=== PATIENT | female | born 1945 | race Caucasian/White ===

== ENCOUNTER → 2019-09-19 10:38 | Outpatient (CLI) | payer MEDICARE, OTHER, SELFPAY ==
[2019-09-17 14:09] VITALS: BMI 22.1
--- NOTE | 2019-09-19 10:55 | BI_ITS ---
MAMMOGRAPHY - BILATERAL SCREENING REASON FOR EXAM: Female, 74 years old. Routine annual screening examination. PERTINENT HISTORY: Non-contributory. Remote left excisional breast biopsy. TECHNIQUE: Digital bilateral breast kelvin (3D mammographic acquisition) in the CC and MLO projections. 2-D mediolateral oblique (MLO) and craniocaudad (CC) views of both breasts were obtained. CAD: Full Field Digital Mammography with Computer Added Detection was performed. COMPARISON: Comparison is made with prior examination of September 20, 2016. FINDINGS: Breast Composition: The breasts are extremely dense, which lowers the sensitivity of mammography. There are no dominant masses or suspicious calcifications. No other significant abnormalities are identified. There has been no significant change since the prior study. BI/SCREEN MAMM (CAD) W/KELVIN BILAT IMPRESSION: Stable bilateral screening mammogram. Yearly follow-up mammogram recommended. (A) ASSESSMENT CATEGORY: BIRADS Category 1: Negative. A letter regarding these results will be sent to the patient by the facility within 30 days. Approximately 10% of breast cancers are not detected by mammography. A normal mammogram should not delay biopsy of a clinically suspicious abnormality. [id number] Electronically Signed: Colt Martinez, at 12:21 EDT , Service support ,
== END ==
PROVIDERS: PCP Nurse Practitioner Family; Referring Provider Internal Medicine Hematology & Oncology; Visit Provider Internal Medicine Hematology & Oncology
DX: Z12.31 Encounter for screening mammogram for malignant neoplasm of breast (principal)
CPT/HCPCS: 77063; 77067

== ENCOUNTER → 2019-12-11 12:30 | Outpatient (CLI) | payer MEDICARE, OTHER, SELFPAY ==
[2019-09-17 14:09] VITALS: BMI 22.1
[2019-12-11 12:06] VITALS: BMI 22.1
--- NOTE | 2019-12-11 12:30 | CT_ITS ---
STUDY: LOW DOSE CT LUNG CANCER SCREENING REASON FOR EXAM: Female, 74 years old. 1 PPD X 35 YEARS RADIATION DOSAGE (If Supplied By Facility): CTDIvol = ( 1.70 ) mGy, DLP = ( 54.67 ) mGycm TECHNIQUE: No contrast was administered. Low dose technique was utilized (average mAS-38 and kVp 120). 1.25 mm axial source images with a slice interval of 1.25-mm were reconstructed in lung windows. 2.5 mm axial source images with a slice interval of 2.5-mm were reconstructed in lung windows. 5.0 mm axial source images with a slice interval of 5.0-mm were reconstructed in soft tissue windows. Nodule measured using lung windows on PACS and/or independent workstation with automated measurement of minimum and maximum diameter. Nodule measurement reported as average diameter rounded to the nearest whole number. Growth is defined as an increase ins size of greater than 1.5 mm. COMPARISON: None. NODULES: No suspicious nodules are seen. Emphysema: Emphysematous changes worse in the upper lobes with the bolus formation as well as scarring in the lung apices. Endobronchial lesion: Aorta: Atherosclerotic calcifications. Coronary arteries: Coronary artery calcification. Heart: Unremarkable. Pulmonary artery: Unremarkable. Mediastinal nodes: Small benign-appearing mediastinal lymph nodes. Other chest and abdominal findings: Moderate sized hiatal hernia. CT/Low Dose CT Lung Screening IMPRESSION: Lung-RADS category 2 - Continue annual screening with LDCT in 12 months. IMPORTANT NOTES FOR USE: ACR Lung-RADS Version 1.0 Assessment Categories Release Date: October 22, 2013 Category: Coded 0-4 bases on nodule(s) with highest degree of suspicion. Negative screen is defined as categories 1 and 2; a positive screen is defined as categories 3 and 4. Category 3 and 4A nodules that are unchanged on interval CT should be coded as category 2, and individuals returned to screening in 12 months. Category 4X: Category 3 or 4 nodules with additional imaging findings that increase the suspicion of lung cancer, such as spiculation, GGN that doubles in size in 1 year, enlarged lymph notes, etc. Category Modifiers: S (significant finding unrelated to lung cancer) and C (prior history of treated lung cancer) may be added to the 0-4 Lung-RADS Electronically Signed: Colt Martinez, at 13:25 EDT , Service support ,
== END ==
PROVIDERS: PCP Nurse Practitioner Family; Referring Provider Nurse Practitioner Family; Visit Provider Nurse Practitioner Family
DX: F17.210 Nicotine dependence, cigarettes, uncomplicated (principal); Z12.2 Encounter for screening for malignant neoplasm of respiratory organs
CPT/HCPCS: G0297

== ENCOUNTER → 2021-01-13 13:16 | Outpatient (CLI) | payer MEDICARE, OTHER, SELFPAY ==
[2019-12-11 12:06] VITALS: BMI 22.1
[2021-01-13 12:45] VITALS: BMI 21.7
--- NOTE | 2021-01-13 13:48 | CT_ITS ---
STUDY: LOW DOSE CT LUNG CANCER SCREENING REASON FOR EXAM: Female, 75 years old. Lung cancer screening -- and amp;gt; 30 pack year history; current smoker; asymptomatic RADIATION DOSAGE (If Supplied By Facility): CTDIvol = ( 3.02 ) mGy, DLP = ( 98.17 ) mGycm TECHNIQUE: No contrast was administered. Low dose technique was utilized (average mAS-38 and kVp 120). 1.25 mm axial source images with a slice interval of 1.25-mm were reconstructed in lung windows. 2.5 mm axial source images with a slice interval of 2.5-mm were reconstructed in lung windows. 5.0 mm axial source images with a slice interval of 5.0-mm were reconstructed in soft tissue windows. Nodule measured using lung windows on PACS and/or independent workstation with automated measurement of minimum and maximum diameter. Nodule measurement reported as average diameter rounded to the nearest whole number. Growth is defined as an increase ins size of greater than 1.5 mm. COMPARISON: Comparison is made with prior study dated 12/11/2019. NODULES: No suspicious nodules are seen. Stable mild scarring along the medial aspect of the right middle lobe. Emphysema: Stable emphysematous changes worse in the upper lobes. Stable scarring in the upper lobes as well as centrilobular emphysematous changes bilaterally. Endobronchial lesion: None Aorta: Atherosclerotic calcification of the aortic arch. Coronary arteries: Coronary artery calcification. Mediastinal nodes: Small benign appearing mediastinal lymph nodes. Moderate-sized hiatal hernia. CT/Low Dose CT Lung Screening IMPRESSION: Lung-RADS category 2 - Continue annual screening with LDCT in 12 months. IMPORTANT NOTES FOR USE: ACR Lung-RADS Version 1.1 Assessment Categories Release Date: 2018 Category: Coded 0-4 bases on nodule(s) with highest degree of suspicion. Negative screen is defined as categories 1 and 2; a positive screen is defined as categories 3 and 4. Category 3 and 4A nodules that are unchanged on interval CT should be coded as category 2, and individuals returned to screening in 12 months. Category 4X: Category 3 or 4 nodules with additional imaging findings that increase the suspicion of lung cancer, such as spiculation, GGN that doubles in size in 1 year, enlarged lymph notes, etc. Category Modifiers: S (significant finding unrelated to lung cancer) Electronically Signed: Colt Martinez MD at 14:19 EDT , Service support ,
== END ==
PROVIDERS: PCP Nurse Practitioner Family; Referring Provider Nurse Practitioner Family; Visit Provider Nurse Practitioner Family
DX: Z12.2 Encounter for screening for malignant neoplasm of respiratory organs (principal); Z87.891 Personal history of nicotine dependence
CPT/HCPCS: 71271

== ENCOUNTER 2023-08-05 17:48 | Inpatient (IN) | payer MEDICARE, OTHER, SELFPAY ==
[2023-08-05] VITALS (10 sets, daily range): BP systolic 97–145; BP diastolic 45–88; PULSE 74–125; RESP 14–34; TEMP 36.7–39; O2SAT 94–97; BMI 18.7
--- NOTE | 2023-08-05 18:02 | EDS_ITS ---
HPI History of Present Illness Chief Complaint: Hyperglycemia Informant: patient Narrative Narrative: Patient present secondary to elevated blood sugar. She states she was diagnosed with COVID a couple weeks ago but thought she was better. She is still not felt well and has not been recently taking her diabetes medications. She states she is eating some and trying to drink a lot. Her blood sugars were elevated today so EMS was called. states that she seemed to be appropriate earlier in the day but was more confused this evening. Blood sugars were reportedly reading greater than 600. On arrival to the emergency room patient has a temperature of 102.2. She was unaware that she had a fever. She denies cough or congestion. She denies urinary symptoms other than urinary frequency with her hyperglycemia. [facility] Medical History Bowel obstruction COPD (chronic obstructive pulmonary disease) Diabetes Encounter for screening for malignant neoplasm of lung in current smoker with 30 pack year history or greater Hyperlipidemia Tobacco use disorder, continuous Vitamin D deficiency Home Medications glimepiride 2 mg tablet 2 mg PO DAILY 09/13/19 [History Last Taken Unknown] simvastatin 40 mg tablet 40 mg PO DAILY 09/13/19 [History Last Taken Unknown] vit C 250 mg-vit E 90 mg-zinc 40 mg-copper 1 [id number] capsule (PreserVision AREDS-2) 1 tab PO BID 01/13/21 [History Last Taken Unknown] cholecalciferol (vitamin D3) 1,250 mcg (50,000 unit) capsule 1,250 mcg PO .MONTHLY 08/05/23 [History Last Taken Unknown] losartan 25 mg tablet 25 mg PO DAILY 08/05/23 [History Last Taken Unknown] metformin 750 mg tablet,extended release 24 hr 750 mg PO DAILY 08/05/23 [History Last Taken Unknown] Allergy/AdvReac Type Severity Reaction Status Date / Time No Known Allergies Allergy Verified 08/05/23 17:58 Family History Father CAD (coronary artery disease) Myocardial infarction Osteoarthritis Brother Multiple myeloma older younger brother Brain aneurysm younger brother Surgical History History of hysterectomy History of intestinal surgery History of removal of ovarian cyst Social History Smoking Status: Current every day smoker tobacco type: cigarettes Tobacco: How many years used: 25 Electronic Cigarette Use: not used second hand exposure: Yes quit status: considering quitting counseling given: provider counseling ROS ROS ED Constitutional Constitutional ED: Reports fever(s) Eyes Eyes: Denies change in vision ENT ENT ED: Denies rhinorrhea or sore throat Cardiovascular Cardiovascular: Denies chest pain or palpitations Respiratory/Chest Respiratory/Chest: Denies cough or dyspnea Gastrointestinal Gastrointestinal: Denies abdominal pain, diarrhea or vomiting Genitourinary Genitourinary ED: Reports urinary frequency Musculoskeletal Musculoskeletal: Denies arthralgias Neurologic Neurologic: Reports weakness Psychiatric Psychiatric: Denies anxiety or depression Allergic/Immunologic Allergic/Immunologic ED: Denies mouth swelling or tongue swelling EXAM Physical Exam Const Vital Signs: 08/05/23 17:50 08/05/23 17:54 08/05/23 17:56 Temperature 102.2 F H 102.2 F H Temperature Source Oral Oral Pulse Rate 125 H 124 H Respiratory Rate 34 H 24 H Respiratory Effort Normal Non-Labored Respiratory Pattern Normal Blood Pressure 136/60 H 145/62 H Blood Pressure Mean 85 89 Pulse Ox 94 94 Oxygen Delivery Method Room Air Room Air Oxygen Flow Rate (L/min) Fraction of Inspired Oxygen (FIO2) 08/05/23 18:43 08/05/23 18:59 08/05/23 19:00 Temperature 102 F H 102 F H Temperature Source Temporal Temporal Pulse Rate 117 H 99 101 H Respiratory Rate 22 H 21 H 23 H Respiratory Effort Respiratory Pattern Blood Pressure 114/47 L 108/45 L 113/54 L Blood Pressure Mean 69 66 73 Pulse Ox 97 95 96 Oxygen Delivery Method Nasal Cannula Nasal Cannula Room Air Oxygen Flow Rate (L/min) 1.5 Fraction of Inspired Oxygen (FIO2) 1.5 Positive well nourished and well developed General Appearance ED: well developed HEENT Reports dry mucous membranes Mouth ED: Yes dry mucous membranes Mouth: dry mucous membranes Eyes EOMs intact bilaterally Chest Wall inspection of chest normal and palpation of chest normal Resp Resp Narrative: Tachypnea. Lung sounds are clear. Cardio Rate: tachycardic GI GI Narrative: Abdomen soft and nontender. Hypoactive bowel sounds. Narrative: Perineum with inflammation and inflamed skin. This is consistent with yeast infection. I do not see any evidence of abscess. Extremity normal to inspection Neuro Neuro Narrative: Patient alert answers questions appropriately. MDM MDM MDM Narrative Medical decision making narrative: Patient placed on bus driver/monitor. IV line initiated. IV fluids given along with Tylenol for fever. Labwork obtained to evaluate for leukocytosis, anemia, and electrolyte derangement. Urinalysis obtained to evaluate for infection/hematuria. Swab for COVID, influenza, and RSV obtained. Chest x-ray obtained to evaluate for acute lung pathology, cardiac size, or mediastinal abnormality. Blood and urine cultures obtained. History & Record Review Discussion w/independent historian: Patient and Family Lab Data Attestation: I reviewed the patient's lab results. Labs: Laboratory Results - last 24 hr 08/05/23 08/05/23 08/05/23 17:53 19:29 19:30 WBC 21.3 H RBC 4.38 Hgb 12.9 Hct 40.2 MCV 91.8 MCH 29.5 MCHC 32.1 RDW Std Deviation 43.9 RDW Coeff of Kuldip 13.1 Plt Count 402 MPV 10.0 Immature Gran % (Auto) 0.800 Neut % (Auto) 93.6 H Lymph % (Auto) 3.1 L [place] % (Auto) 2.3 Eos % (Auto) 0.0 Baso % (Auto) 0.2 Absolute Neuts (auto) 20.0 H Absolute Lymphs (auto) 0.66 L Nucleated RBC % 0 Sodium 129 L Potassium 4.6 Chloride 94 L Carbon Dioxide 23.0 Anion Gap 12 BUN 25 H Creatinine 1.56 H Estim Creat Clear Calc 22.47 Est GFR (MDRD) Af Amer 42 L Est GFR (MDRD) Non-Af 34 L BUN/Creatinine Ratio 16.0 Glucose 956 H* Calcium 9.9 Total Bilirubin 0.60 Direct Bilirubin 0.23 AST 11 L ALT 23 Alkaline Phosphatase 105 Troponin I High Sens 153 H* Total Protein 8.2 Albumin 3.2 Globulin 5.0 H Urine Color Yellow Urine Clarity Clear Urine pH 6.5 Ur Specific [place] 1.010 Urine Protein 30 H Urine Glucose (UA) 1000 H Urine Ketones 5 H Urine Occult Blood 150 H Urine Nitrite Positive H Urine Bilirubin Negative Urine Urobilinogen Normal Ur Leukocyte Esterase 25 H Urine RBC 0-5 SEEN Urine WBC 0 SEEN Ur Squamous Epith Cells 0 SEEN Urine Bacteria 1+ Urine Mucus 0 SEEN Acetone Level MODERATE H ABG Data ABG results: ABG 08/05/23 19:11 Specimen Type DEDRICK Sample Site Not entered O2 % 2.0 VBG pH 7.39 VBG pO2 56 H VBG HCO3 23 VBG Total CO2 24 VBG O2 Sat (Calc) 88 H VBG Base Excess -2 L POC Mix VBG pCO2 Pt Tmp 38.1 L O2 Delivery Device Cannula Radiography Chest X-Ray - ED: 1 View, Read by ED Physician, Chronic Changes and No Infiltrates Diagnostic Testing: Clinical Impression(s) from Imaging Studies Chest X-Ray 08/05/23 18:24 IMPRESSION: There are findings consistent with COPD. There is no evidence of acute chest disease. Electronically Signed: Cb Munoz MD at 18:48 EST , EKG Initial EKG: Attestation: I personally reviewed and interpreted this EKG as follows: Interpretation: Sinus Tachycardia (Sinus tach at 114. Nonspecific ST changes.) Treatment and Re-Evaluation :: CBC was a white count of 21.3 with 93.6% neutrophils. Chemistry studies significant for glucose of 956 with a corresponding sodium of 129. Potassium is normal at 4.6. BUN is 25 and creatinine is 1.56. I do not have prior labs available for comparison. Anion gap is normal. Troponin is elevated at 153. LFTs are unremarkable. Venous blood gas reveals a pH 7.39. Serum acetone is measured at moderate. Swab for COVID, influenza, and RSV is negative. Chest x- ray per my interpretation feels chronic changes with no focal infiltrate. Radiology interpretation is reviewed and agrees. Urinalysis does reveal evidence of infection with positive nitrites and 1+ bacteria. Cultures have been ordered. Patient is given a dose of IV Rocephin. Nystatin powder used in the perineum for her erythema and inflammation. I will speak with hospitalist regarding admission. I anticipate insulin drip, but will speak with hospitalist first given the normal pH and anion gap. Discharge Plan Triage Chief Complaint: Hyperglycemia ED Provider: Virginia Gu Dx/Rx/DC Orders Clinical Impression: UTI (urinary tract infection), Hyperglycemia, Elevated troponin Prescriptions: No Action PreserVision AREDS-2 250-90-40-1 mg capsule 1 tab PO BID simvastatin 40 MG tablet 40 mg PO DAILY glimepiride 2 MG tablet 2 mg PO DAILY cholecalciferol (vitamin D3) 1,250 mcg (50,000 unit) capsule 1,250 mcg PO .MONTHLY Patient Comments: TAKE 1 CAPSULE BY MOUTH EVERY MONTH FOR 90 DAYS losartan 25 mg tablet 25 mg PO DAILY Patient Comments: TAKE 1 TABLET BY MOUTH EVERY DAY metformin 750 mg tablet extended release 24 hr 750 mg PO DAILY Patient Comments: TAKE 1 TABLET BY MOUTH EVERY DAY Primary Care Provider: Mauro Guallpa NP Referrals: Mauro Guallpa NP, [employer] [Primary Care Provider] - Disposition Disposition: Acute Care Hospital [facility]
--- NOTE | 2023-08-05 18:12 | ED.RN ---
NO OLD EKG
[2023-08-05 18:14] LABS: Absolute Lymphocyte Count 0.66 X10^3/uL (0.83-4.51); Basophil# 0.05 X10^3/uL; Basophil% 0.2 % (0-1); Hematocrit 40.2 % (37-47); Hemoglobin 12.9 g/dL (12.0-15.0); Lymphocyte # 0.66 X10^3/ul (0.83-4.51); Lymphocyte % 3.1 % (19-41); Mean Corp Hgb Conc 32.1 g/dL (32-36); Mean Corpuscular Hgb 29.5 pg (27.0-32.0); Mean Corpuscular Volume 91.8 fL (81-99); Monocyte# 0.48 X10^3/uL; Monocyte% 2.3 % (0-10); NRBC Flagged by Analyzer 0 % (0-5); Neutrophil # 19.96 X10^3/uL (2.7-7.7); Neutrophil % 93.6 % (47-70); Platelet Count 402 K/mm3 (150-450); RBC Distribution Width CV 13.1 % (11.6-14.6); RBC Distribution Width SD 43.9 fl (35.1-43.9); Red Blood Count 4.38 M/mm3 (4.2-5.4); White Blood Count 21.3 K/mm3 (4.4-11.0)
[2023-08-05] MEDS: 0.9% Normal Saline (1000mL) 1,000 ML 1000 ML IV (18:16)
--- OUTSIDE RECORDS SUMMARY | 2023-08-05 18:23 | XMS RPT_ITS | CCD ---
Author Name Unknown Address [address] [place] [address] Organization [facility] Care Team Providers Care Admitting Manager Name Role Phone ADELINA JACKMAN APRN, CNP Primary Care Phys ician ADELINA JACKMAN APRN, CNP Attending U davidailADELINA Mendoza APRN, CNP Primary Care U navailable ADELINA JACKMAN APRN, CNP Attending U navailvíctor Lloyd CNP, ADELINA Reyes Primary Care U navailable Medications Current Medications Medication Drug Class(es) Dates Sig (Normalized) Sig (Original) [id number] 200 actuat albuterol 0.09 mg/actuat metered dose inhaler (5 sources) beta2-Adrenergic Agonist Start: 11-13-2021 End: 05-10-2023 take 1 puff(s) by inhalation every four hours ProAir HFA MDI (90 mcg/inh) inhalation aerosol 1 puff(s), Inhalation, q4h, # 1 EA, 5 Refill(s), Pharmacy: [id number], Chronic obstructive pulmonary disease (COPD), 156, cm, 11/11/22 10:37:00 EDT, Height, kg, 11/11/22 10:37:00 EDT, Dosing Weight Start Date: 11/11/22 Stop Date: 05/10/23 Status: Ordered Problems Active Problems Problem Classification Problem Date Documented Date Episodic/Chronic Cardiac dysrhythmias (5 sources) Premature atrial contraction 03-01-2019 Chronic Chronic obstructive pulmonary disease and bronchiectasis (7 sources) Chronic obstructive lung disease; Translations: [Chronic obstructive pulmonary disease, unspecified] Onset: 05-05-2023 03-02-2019 Chronic Complications of surgical procedures or medical care (5 sources) 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 Chronic Diabetes mellitus without complication (7 sources) Type 2 diabetes mellitus; Translations: [Type 2 diabetes mellitus without complications] Onset: 11-04-2022 12-07-2019 Chronic Diseases of white blood cells (7 sources) Leukocytosis; Translations: [Elevated white blood cell count, unspecified] Onset: 11-04-2022 03-01-2019 Chronic Disorders of lipid metabolism (7 sources) Hyperlipidemia; Translations: [Hyperlipidemia, unspecified] Onset: 11-04-2022 03-02-2019 Chronic Essential hypertension (7 sources) Hypertensive disorder; Translations: [Essential (primary) hypertension] Onset: 11-04-2022 08-31-2019 Chronic Heart valve disorders (5 sources) Pansystolic murmur 02-09-2021 Episodic Nutritional deficiencies (7 sources) Vitamin D deficiency; Translations: [Vitamin D deficiency, unspecified] Onset: 11-04-2022 03-02-2019 Chronic Osteoarthritis (5 sources) Osteoarthritis of multiple joints 03-02-2019 Chronic Osteoporosis (5 sources) Osteoporosis 03-01-2019 Chronic Other diseases of kidney and ureters (5 sources) Renal impairment 03-28-2020 Episodic Residual codes; unclassified (5 sources) Postmenopausal state 01-31-2020 Episodic Screening and history of mental health and substance abuse codes (5 sources) Tobacco use and exposure - finding 03-01-2019 Chronic Unclassified (20 sources) Patient encounter status 02-09-2021 Unclassified (3 sources) Vaccination needed 03-19-2022 Past or Other Problems Problem Classification Problem Date Documented Da te Episodic/Chronic Other diseases of kidney and ureters (2 sources) Disorder of kidney and ureter, unspecified; Translations: [Disorder of kidney and ureter, unspecified] Onset: 11-04-2022 Episodic Results Test Name Value Interpretation Reference Range Facil ity Encounters Encounter Date Encounter Type Care Provider Facility Start: 05-05-2023 End: 05-10-2023 ambulatory ADELINA Lloyd CNP Facility:B Start: 05-05-2023 End: 05-09-2023 Outreach Lab ADELINA AJ APRN - NETWORKS COMPUTER CONSULTANT [facility] Start: 11-04-2022 End: 11-09-2022 ambulatory ADELINA WAGNERPKINS EXPORT ADMINISTRATOR - NETWORKS COMPUTER CONSULTANT Facility:B Start: 11-04-2022 End: 11-08-2022 Outreach Lab ADELINA AJ EXPORT ADMINISTRATOR - NETWORKS COMPUTER CONSULTANT [facility] Start: 05-06-2022 End: 05-10-2022 Outreach Lab ADELINA AJ EXPORT ADMINISTRATOR - NETWORKS COMPUTER CONSULTANT [facility] Start: 11-05-2021 End: 11-09-2021 Outreach Lab ADELINA WAGNERPKINS EXPORT ADMINISTRATOR - NETWORKS COMPUTER CONSULTANT [facility] Start: 04-24-2021 End: 04-28-2021 Outreach Lab ADELINA WAGNERPKINS EXPORT ADMINISTRATOR - NETWORKS COMPUTER CONSULTANT [facility] Procedures Date Procedure Procedure Detail Performing Clinician Start: 06-27-1997 Surgery (qualifier value) ADELINA WAGNERPKINS EXPORT ADMINISTRATOR - NETWORKS COMPUTER CONSULTANT Immunizations Immunization Date Immunization Notes Care Provider Bandar edwards 03-19-2022 influenza, high dose seasonal, preservative-free ADELINA WAGNERPKINS EXPORT ADMINISTRATOR - NETWORKS COMPUTER CONSULTANT [facility] Payers Date Payer Category Payer Medicare [id number] 2022 Unknown [id number] 1945 Unknown [id number] 1945 Unknown [id number] Social History Date Type Detail Facility Start: 02-09-2021 Heavy tobacco smoker (finding) [facility] Sex Assigned At Female [facility] Evaluation + Plan note Note Date & Type Note Facility Evaluation + Plan note Future Appointments Appointment Date:05/15/2021 02:00:00 PM Scheduled Provider:ADELINA AJ APRN, CNP Location:[facility] Appointment Type:PC OV Follow Up [facility] Evaluation + Plan note LaboratoryRadiology Note Date & Type Note Facility Evaluation + Plan note Future Appointments Appointment Date:05/11/2022 10:20:00 AM Scheduled Provider:ADELINA AJ APRN - PATTI Location:[facility] Appointment Type:PC OV Future Scheduled TestsMicroalbumin Level Urine 05/16/22MA Mammo Screening Bilateral w/ Adonis 11/13/21BD Bone Density DEXA Axial Skeleton 11/13/21 [facility] Evaluation + Plan note LaboratoryRadiology Note Date & Type Note Facility Evaluation + Plan note Future Appointments Appointment Date:11/11/2022 10:40:00 AM Scheduled Provider:ADELINA AJ APRN, CNP Location:[facility] Appointment Type:PC OV Follow Up Future Scheduled TestsMicroalbumin Level Urine 515/23Microalbumin Level Urine 05/16/22MA Mammo Screening Bilateral w/ Adonis 11/13/21BD Bone Density DEXA Axial Skeleton 11/13/21 [facility] Evaluation + Plan note Laboratory Note Date & Type Note Facility Evaluation + Plan note Future Appointments Appointment Date:05/12/2023 10:40:00 AM Scheduled Provider:ADELINA AJ APRN, CNP Location:[facility] Appointment Type:PC OV Follow Up Future Scheduled TestsMicroalbumin Level Urine 5/15/23Microalbumin Level Urine 05/16/22 [facility] Hospital course Narrative Note Date & Type Note Facility Hospital course Narrative No data available for this section [facility] Hospital Discharge instructions Note Date & Type Note Facility Hospital Discharge instructions No data available for this section [facility] Progress note Note Date & Type Note Facility Progress note No data available for this section [facility] Summary Purpose Family History No Family History Records Found Advance Directives No Advanced Directives Records Found Additional Source Comments Care Team (unrecognized sect ion and content) Personnel Name: ADELINA AJ EXPORT ADMINISTRATOR - NETWORKS COMPUTER CONSULTANT Address: [address] [place] [address]- Care Team Personnel Name: ADELINA AJ EXPORT ADMINISTRATOR - NETWORKS COMPUTER CONSULTANT Position: P4 Advanced Typewriter Mechanic Member Role: Primary Care Physician Address: Address: [address] [place] [address] Care Team Related Persons Name: KIM WOLF Address: [address] [place], [place] [phone] Care Team Personnel Name: ADELINA AJ EXPORT ADMINISTRATOR - NETWORKS COMPUTER CONSULTANT Position: P4 Advanced Typewriter Mechanic Member Role: Primary Care Physician Address: Address: [address] [place] [address] Care Team Related Persons Name: KIM WOLF Address: [address] [place], [place] [phone] [place] Care Team (unrecognized sect ion and content) Care Team Personnel Name: ADELINA AJ EXPORT ADMINISTRATOR - NETWORKS COMPUTER CONSULTANT Position: P4 Advanced Practice Nurse Member Role: Primary Care Physician Address: Address: [address] [place] [address] Care Team Related Persons Name: KIM WOLF Address: Home [address] [place], [place] [phone] INFORMATION SOURCE (unrecogn ized section and content) FOR RECORDS PERTAINING TO PATIENTS WHO ARE OR HAVE BEEN ENROLLED IN A CHEMICAL DEPENDENCY/SUBSTANCEABUSE PROGRAM, SOME INFORMATION MAY BE OMITTED. This clinical summary was aggregated from multiple sources. Caution should be exercised in using it in the provision of clinical care. This summary normalizes information from multiple sources, and as a consequence, information in this document may materially change the coding, format and clinical context of patient data. In addition, data may be omitted in some cases. CLINICAL DECISIONS SHOULD BE BASED ON THE PRIMARY CLINICAL RECORDS. [facility]. provides no warranty or guarantee of the accuracy or completeness of information in this document.
--- NOTE | 2023-08-05 18:24 | RAD_ITS ---
STUDY: X-RAY CHEST REASON FOR EXAM: Female, 78 years old. fever TECHNIQUE: Single AP portable view of the chest. COMPARISON: None. FINDINGS: The lungs are hyperexpanded. There are coarsened interstitial markings suggestive of mild chronic fibrosis. No gross focal infiltrates. No gross effusions. Normal size heart. Normal mediastinum and celina. Normal visualized pulmonary arteries. Normal visualized aortic arch and descending thoracic aorta. Normal visualized thoracic spine. Normal visualized ribs, clavicles, and shoulders. There is no demonstrated abnormality of the visualized soft tissue structures of the upper abdomen. RAD/Chest 1 View (Portable) IMPRESSION: There are findings consistent with COPD. There is no evidence of acute chest disease. Electronically Signed: Cb Munoz MD at 18:48 EST ,
[2023-08-05 18:40] LABS: AST(SGOT) 11 U/L (15-37); Alanine Aminotransfer ALT/SGPT 23 U/L (13-56); Albumin, Serum 3.2 g/dL (3.2-5.0); Alkaline Phosphatase 105 U/L (45-117); Anion Gap 12 (5-15); BUN 25 mg/dL (7-18); Bilirubin, Direct 0.23 mg/dL (0.00-0.30); Calcium,Total 9.9 mg/dL (8.5-10.1); Chloride 94 mmol/L (98-107); Creatinine, Serum 1.56 mg/dL (0.55-1.02); EST Glomerular Filtration Rate 34 mL/min (>60); Est Glom Filt Rate - Afr Amer 42 mL/min (>60); Estimated Creatinine Clearance 22.47 ml/min; Glucose 956 mg/dL (74-106); Potassium 4.6 mmol/L (3.5-5.1); Protein, Total 8.2 g/dL (6.4-8.2); Sodium Level 129 mmol/L (136-145); Troponin-I HS 153 pg/mL (3.0-54.0)
[2023-08-05] MEDS: Acetaminophen 325 MG Tablet 650 MG PO (18:42)
--- NOTE | 2023-08-05 18:56 | ED.RN ---
LESLEY PLACED D/T REDNESS AND BREAKDOWN OF PERINEUM OF PT. PT WAS CLEANED UP WITH WIPES AND DEPENDS PLACED ALSO AND BED CHANGED AND PT REPOSITIONED. PT IS ELVER RESPONSIVE WITH FAMILY A THE BEDSIDE. NO OPEN WOUNDS WERE NOTED. PT ALSO GIVEN ICE CHIPS D/T INCREASED THIRST.
[2023-08-05 19:14] LABS: Blood Gas Specimen Type VEN; O2 Delivery Device Cannula; SITE Not entered; VBG BASE EXCESS -2 mmol/L (-1.0-3.5); VBG Bicarbonate 23 mmol/L (22-26); VBG PO2 56 mmHg (25-40); VBG SO2 88 % (50-70); VBG TCO2 24 mmol/L (23-33); VBG pCO2 38.1 mmHg (41-51); VBG pH 7.39 (7.32-7.42)
[2023-08-05 19:33] LABS: Mucous, Urine 0 SEEN /hpf (<or=2+); Squamous Epithelial Cells - UA 0 SEEN /hpf (5-10); White Blood Cells 0 SEEN /hpf (0-5)
[2023-08-05 19:34] LABS: Color, Urine Yellow (Yellow); Glucose, Dipstick 1000 mg/dl (Normal); Ketone-Dipstick 5 mg/dl (Negative); Leukocyte Esterase-Dipstick 25 /ul (Negative); Nitrite-Dipstick Positive (Negative); Occult Blood-Urine 150 /ul (Negative); Protein-Dipstick 30 mg/dl (Negative); Urine Bilirubin Dipstick Negative (Negative); Urine Clarity Clear (Clear); Urine Urobilinogen Normal (Normal); Urine pH 6.5 (5.0 - 8.0)
[2023-08-05 19:39] LABS: Bacteria 1+ /hpf (None Seen); Red Blood Cells-Urine 0-5 SEEN /hpf (0-5)
[2023-08-05] MEDS: 0.9% Normal Saline (1000mL) 1,000 ML 200 ML IV (20:16)
[2023-08-05 20:30] LABS: Bedside Glucose > 500 mg/dL (74-106)
[2023-08-05] MEDS: 0.9% Normal Saline (1000mL) 1,000 ML 999 ML IV (20:31)
--- NOTE | 2023-08-05 20:34 | HP.PCM.HOS_ITS ---
HPI - General General Date of Admission: 08/05/23 Date of Service: 08/05/23 Chief Complaint: Generalized weakness tiredness. Fever and hyperglycemia HPI Narrative VIKY WOLF, is a 78 F came to ED as she was not feeling well with generalized weakness, hyperglycemia has blood sugar was reading high more than 600 and she was also confused in the evening as per the . She was brought to ED by EMS for fever, temperature 102.2 ?F. Patient denies subjective fever chills/she was unaware of that. Denies burning micturition but has increased urine frequency. Patient states she is very tired and fatigued because her daughter has Down syndrome and is in extended-care facility and she is very sick. 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 She was tearful while telling her story. In ED, she was found tachycardic heart rate 1 2500, tachypneic 34/min. No hypoxia. She denies cough cold, increased shortness of breath more than her normal as she has COPD and chronic smoker. She also had COVID couple weeks ago and she recovered. [facility] Medical History Bowel obstruction COPD (chronic obstructive pulmonary disease) Diabetes Encounter for screening for malignant neoplasm of lung in current smoker with 30 pack year history or greater Hyperlipidemia Tobacco use disorder, continuous Vitamin D deficiency Home Medications glimepiride 2 mg tablet 2 mg PO DAILY 09/13/19 [History Last Taken Unknown] simvastatin 40 mg tablet 40 mg PO DAILY 09/13/19 [History Last Taken Unknown] vit C 250 mg-vit E 90 mg-zinc 40 mg-copper 1 [id number]-[id number] capsule (PreserVision AREDS-2) 1 tab PO BID 01/13/21 [History Last Taken Unknown] cholecalciferol (vitamin D3) 1,250 mcg (50,000 unit) capsule 1,250 mcg PO .MONTHLY 08/05/23 [History Last Taken Unknown] losartan 25 mg tablet 25 mg PO DAILY 08/05/23 [History Last Taken Unknown] metformin 750 mg tablet,extended release 24 hr 750 mg PO DAILY 08/05/23 [History Last Taken Unknown] Allergy/AdvReac Type Severity Reaction Status Date / Time No Known Allergies Allergy Verified 02/09/24 17:58 Family History Father CAD (coronary artery disease) Myocardial infarction Osteoarthritis Brother Multiple myeloma older younger brother Brain aneurysm younger brother Surgical History History of hysterectomy History of intestinal surgery History of removal of ovarian cyst Social History Smoking Status: Current every day smoker tobacco type: cigarettes Tobacco: How many years used: 25 Electronic Cigarette Use: not used second hand exposure: Yes quit status: considering quitting counseling given: provider counseling ROS ROS Narrative Constitutional: Reports severe fatigue and weakness. Fever. HEENT: Reports systems reviewed and no addt'l complaints, except as documented Respiratory/Chest: No acute shortness of breath or respiratory distress or wheezing or cough or URI symptoms. CVS: About age of 11, she had rheumatic fever and she had murmur but states it improved over the years. Denies chest pain pressure or tightness. Gastrointestinal: No nausea. Denies coffee ground emesis, hematemesis or vomiting Genitourinary: Denies burning urination but has increased frequency and some yeast infection Musculoskeletal: Denies acute joint pain or limited range of motion. No acute injury Neurologic: Denies seizure-like symptoms. skin: No ulcer. No rash Endocrinology: Reports systems reviewed and no addt'l complaints, except as documented Hematologic/Lymphatic: Reports systems reviewed and no addt'l complaints, except as documented Rest 14 ROS are negative except as mentioned in HPI Vital Signs Vital Signs Vital Signs: 08/05/23 17:50 08/05/23 17:54 08/05/23 17:56 Temperature 102.2 F H 102.2 F H Temperature Source Oral Oral Pulse Rate 125 H 124 H Respiratory Rate 34 H 24 H Respiratory Effort Normal Non-Labored Respiratory Pattern Normal Blood Pressure 136/60 H 145/62 H Blood Pressure Mean 85 89 Pulse Ox 94 94 Oxygen Delivery Method Room Air Room Air Oxygen Flow Rate (L/min) Fraction of Inspired Oxygen (FIO2) 08/05/23 18:43 08/05/23 18:59 08/05/23 19:00 Temperature 102 F H 102 F H Temperature Source Temporal Temporal Pulse Rate 117 H 99 101 H Respiratory Rate 22 H 21 H 23 H Respiratory Effort Respiratory Pattern Blood Pressure 114/47 L 108/45 L 113/54 L Blood Pressure Mean 69 66 73 Pulse Ox 97 95 96 Oxygen Delivery Method Nasal Cannula Nasal Cannula Room Air Oxygen Flow Rate (L/min) 1.5 Fraction of Inspired Oxygen (FIO2) 1.5 08/05/23 20:15 Temperature Temperature Source Pulse Rate 100 Respiratory Rate 21 H Respiratory Effort Respiratory Pattern Blood Pressure 103/47 L Blood Pressure Mean 62 Pulse Ox 96 Oxygen Delivery Method Oxygen Flow Rate (L/min) Fraction of Inspired Oxygen (FIO2) Weight Weight: 102 lb 4.712 oz Body Mass Index (BMI) 18.7 Physical Exam Narrative General: Alert, Oriented x3, Cooperative. Fatigue BMI 18.7 kg/m?. Looks very dehydrated HEENT: Atraumatic, PERRLA, EOMI, Normocephalic Oral: Oral mucosa dry. No Gingival or Mucosal Lesions/ Ulcerations Neck: Supple, No JVD, Negative Carotid Bruits Chest wall/Lungs: Air entry diminished in bilateral lung bases. Bilateral expiratory rhonchi Cardiovascular: Sinus tachycardia. Normal S1, Normal S2, No M/G/R Abdomen: Bowel Sounds Present, Soft, Non Tender, Non-Distended : No dysuria. No renal angle tenderness. No suprapubic tenderness. Extremities: No edema, Capillary Refill Less than 3 Seconds Skin: No rashes, No breakdown Musculoskeletal: No Tenderness to Palpation of Joints or Extremities Neurological: Cranial nerves II-XII grossly intact, DTR 2+/4. No acute focal neurological deficit. Psych/Mental Status: Flat affect. Results Lab / Micro Data 08/05/23 17:53 08/05/23 17:53 Labs: Laboratory Results - last 24 hr 08/05/23 17:53: WBC 21.3 H, RBC 4.38, Hgb 12.9, Hct 40.2, MCV 91.8, MCH 29.5, MCHC 32.1, RDW Std Deviation 43.9, RDW Coeff of Kuldip 13.1, Plt Count 402, MPV 10.0, Immature Gran % (Auto) 0.800, Neut % (Auto) 93.6 H, Lymph % (Auto) 3.1 L, Polk % (Auto) 2.3, Eos % (Auto) 0.0, Baso % (Auto) 0.2, Absolute Neuts (auto) 20.0 H, Absolute Lymphs (auto) 0.66 L, Nucleated RBC % 0, Sodium 129 L, Potassium 4.6, Chloride 94 L, Carbon Dioxide 23.0, Anion Gap 12, BUN 25 H, Creatinine 1.56 H, Estim Creat Clear Calc 22.47, Est GFR (MDRD) Af Amer 42 L, Est GFR (MDRD) Non-Af 34 L, BUN/Creatinine Ratio 16.0, Glucose 956 H*, Calcium 9.9, Total Bilirubin 0.60, Direct Bilirubin 0.23, AST 11 L, ALT 23, Alkaline Phosphatase 105, Troponin I High Sens 153 H*, Total Protein 8.2, Albumin 3.2, Globulin 5.0 H 08/05/23 19:29: Urine Color Yellow, Urine Clarity Clear, Urine pH 6.5, Ur Specific [place] 1.010, Urine Protein 30 H, Urine Glucose (UA) 1000 H, Urine Ketones 5 H, Urine Occult Blood 150 H, Urine Nitrite Positive H, Urine Bilirubin Negative, Urine Urobilinogen Normal, Ur Leukocyte Esterase 25 H, Urine RBC 0-5 SEEN, Urine WBC 0 SEEN, Ur Squamous Epith Cells 0 SEEN, Urine Bacteria 1+, Urine Mucus 0 SEEN 08/05/23 19:30: Acetone Level MODERATE H 08/05/23 20:11: POC Glucose > 500 H* Micro: Microbiology 08/05/23 18:05 Mucosa - Nose SARS-CoV-2, Influenza & RSV (PCR) - Final ABG Data ABG results: ABG 08/05/23 19:11 Specimen Type DEDRICK Sample Site Not entered O2 % 2.0 VBG pH 7.39 VBG pO2 56 H VBG HCO3 23 VBG Total CO2 24 VBG O2 Sat (Calc) 88 H VBG Base Excess -2 L POC Mix VBG pCO2 Pt Tmp 38.1 L O2 Delivery Device Cannula Imaging Radiology Impression Chest X-Ray 08/05/23 18:24 IMPRESSION: There are findings consistent with COPD. There is no evidence of acute chest disease. Electronically Signed: Cb Munoz MD at 18:48 EST , Assessment & Plan Assessment/Plan (1) Hyperglycemia: PLAN: Plan This is 78-year-old female came to ED with generalized weakness and hyperglycemia and found to have fever, sinus tachycardia and tachypnea. 1. Hyperglycemia with history of diabetes mellitus type 2 most likely due to not adherent to medications, diet: Patient is being admitted to PCU. Her glucose in BMP is 956 and serum acetone moderate but anion gap normal. Bicarb 23. VBG shows 6 pH 7.39, mixed pCO2 38 and total CO2 24 therefore she does not meet criteria for DKA. Patient is being distended with IV fluid normal saline 2 L bolus over 2 hours and then start Lantus insulin and Humalog insulin. Accu- Chek insulin coverage with Humalog sliding scale. Continue IV fluid resuscitation as ordered. Hold patient's home oral hypoglycemic medications 2. Hyponatremia most likely due to hyperglycemia with most likely GWYN versus CKD, due to dehydration, prerenal in etiology: Serum sodium is 129, chloride 94. BUNs/creatinine 25/1.56. No prior labs but seems GWYN in the appropriate clinical setting. Monitor electrolytes and kidney function. 3. Fever, abnormal UA with positive nitrite with suspicion of UTI: Patient does not have burning micturition/dysuria but increased frequency and urgency may be due to hyperglycemia. UA shows positive nitrite, WBC 0, LE 25 1+ bacteria. Patient also had fever 102 Fahrenheit therefore started on IV ceftriaxone antibiotic. Urine culture and blood cultures x 2 ordered 4. Elevated troponin, exact etiology unclear possible acute myocardial injury from sinus tachycardia, unlikely ACS: Patient does not have chest pain or shortness of breath more than her normal. No acute change. Cycle cardiac enzymes. 5. COPD and current smoker: Patient smokes half pack per day. Patient not on scheduled or rescue inhaler. Advised follow-up in pulmonary clinic. DuoNeb as needed as needed for shortness of breath. Patient recovered from COVID about 2 to 3 weeks ago. Advised COVID vaccines/booster as an outpatient Patient is being managed on scheduled bronchodilator, IV Solu-Medrol, Mucinex, incentive spirometry and Pep. PT and OT ordered 6. VTE prophylaxis moderate risk: Lovenox 30 mG subcu daily. Living will/advanced directive/end of life care: Patient does not have living will or advanced directive. She does not have [place] power of assistant attorney general for health. Her next of kin is her . After discussion of benefits/risks procedures involved with full code, DNR CC arrest and DNR CC, the patient opted for DNRCC arrest with no intubation Patient doesN'T want artificial life support including intubation, tube feed, ventilator and/chest compression, central venous catheter, vasopressor and DC shock if needed Total time spent in onlo-je-gykq encounter in discussion of advanced directive 17 minutes. Charges/Coding Visit Charges Inpatient E&M: 72674 Init Hosp L3 Procedures Hospitalists Procedures: 64100 Advncd Care Plan 30 Min
[2023-08-05 20:50] LABS: Magnesium 1.8 mg/dL (1.6-2.6); Phosphorus 2.6 mg/dL (2.5-4.9)
[2023-08-05] MEDS: Ceftriaxone 1 GM/50 ML BAG IV (20:53)
--- OUTSIDE RECORDS SUMMARY | 2023-08-05 21:12 | XMS RPT_ITS | CCD ---
Author Name Unknown Address [address] [place] [address] Organization [facility] Care Team Providers Care Brand Leader Name Role Phone ADELINA JACKMAN APRN, CNP Primary Care Phys ician ADELINA JACKMAN APRN, CNP Attending U advidailADELINA Mendoza APRN, CNP Primary Care U navailable ADELINA JACKMAN APRN, CNP Attending U navailvíctor Lloyd CNP, ADELINA Reyes Primary Care U navailable Medications Current Medications Medication Drug Class(es) Dates Sig (Normalized) Sig (Original) [id number] 200 actuat albuterol 0.09 mg/actuat metered dose [...] 05-09-2023 Outreach Lab ADELINA AJ APRN - [employer]URE [employer]KER [facility] Start: 11-04-2022 End: 11-09-2022 ambulatory ADELINA WAGNERPKINS BUCKLE ATTACHER - [employer] MAKER Facility:B Start: 11-04-2022 End: 11-08-2022 Outreach Lab ADELINA AJ BUCKLE ATTACHER - [employer]KER [facility] Start: 05-06-2022 End: 05-10-2022 Outreach Lab ADELINA AJ BUCKLE ATTACHER - [employer] AND [employer]TURE [employer]KER [facility] Start: 11-05-2021 End: 11-09-2021 Outreach Lab ADELINA WAGNERPKINS BUCKLE ATTACHER - [employer] AND [employer]TURE [employer]KER [facility] Start: 04-24-2021 End: 04-28-2021 Outreach Lab ADELINA WAGNERPKINS BUCKLE ATTACHER - [employer] [facility] Procedures Date Procedure Procedure Detail Performing Clinician Start: 06-27-1997 Surgery (qualifier value) ADELINA WAGNERPKINS BUCKLE ATTACHER - [employer] Immunizations Immunization Date Immunization Notes Care Provider Bandar edwards 03-19-2022 influenza, high dose seasonal, preservative-free ADELINA WAGNERPKINS BUCKLE ATTACHER - [employer]KER [facility] Payers Date Payer Category Payer Medicare [id number] 2022 Unknown [id number] 1945 Unknown [id number] 1945 Unknown [id number] Social History Date Type Detail Facility Start: 02-09-2021 Heavy tobacco smoker (finding) [facility] Sex Assigned At Female [facility] Evaluation + Plan note Note Date & Type Note Facility Evaluation + Plan note Future Appointments Appointment Date:05/15/2021 02:00:00 PM Scheduled Provider:ADELINA AJ APRN, CNP Location:[facility] Appointment Type:PC OV Follow Up [facility] Evaluation + Plan note LaboratoryRadiology Note Date & Type Note Facility Evaluation + Plan note Future Appointments Appointment Date:05/11/2022 10:20:00 AM Scheduled Provider:ADELINA AJ APRN - PATTI Location:[facility] Appointment Type:PC OV Future Scheduled TestsMicroalbumin Level Urine 05/16/22MA Mammo Screening Bilateral w/ Adonis 11/13/21BD Bone Density DEXA Axial Skeleton 11/13/[address] [facility] Evaluation + Plan note LaboratoryRadiology Note Date & Type Note Facility Evaluation + Plan note Future Appointments Appointment Date:11/11/2022 10:40:00 AM Scheduled Provider:ADELINA AJ APRN, CNP Location:[facility] Appointment Type:PC OV Follow Up Future Scheduled TestsMicroalbumin Level Urine 515/23Microalbumin Level Urine 05/16/22[place] Mammo Screening Bilateral w/ Adonis 11/13/21BD Bone Density DEXA Axial Skeleton 11/13/[address] [facility] Evaluation + Plan note Laboratory Note Date & Type Note Facility Evaluation + Plan note Future Appointments Appointment Date:05/12/2023 10:40:00 AM Scheduled Provider:ADELINA AJ APRN, CNP Location:[facility] Appointment Type:PC OV Follow Up Future Scheduled TestsMicroalbumin Level Urine 5/15/23Microalbumin Level Urine 05/16/[address] [facility] Hospital course Narrative Note Date & Type Note Facility Hospital course Narrative No data available for this section [facility] Hospital Discharge instructions Note Date & Type Note Facility Hospital Discharge instructions No data available for this section [facility] Progress note Note Date & Type Note Facility Progress note No data available for this section [facility] Summary Purpose Family History No Family History Records Found Advance Directives No Advanced Directives Records Found Additional Source Comments Care Team (unrecognized sect ion and content) Personnel Name: ADELINA AJ BUCKLE ATTACHER - [employer] MAKER Address: [address] [place] [address]- Care Team Personnel Name: ADELINA AJ BUCKLE ATTACHER - [employer] MAKER Position: P4 Advanced Car Salesperson Member Role: Primary Care Physician Address: Address: [address] [place] [address] Care Team Related Persons Name: KIM WOLF Address: Home [address], [place] [id number] Care Team Personnel Name: ADELINA AJ BUCKLE ATTACHER - [employer] MAKER Position: P4 Advanced Car Salesperson Member Role: Primary Care Physician Address: Address: [address] [place] [address] Care Team Related Persons Name: KIM WOLF Address: Home [address], [place] [id number] [place] Care Team (unrecognized sect ion and content) Care Team Personnel Name: ADELINA AJ BUCKLE ATTACHER - [employer] MAKER Position: P4 Advanced Practice Nurse Member Role: Primary Care Physician Address: Address: [address] [place] [address] Care Team Related Persons Name: KIM WOLF Address: Home [address], [place] [phone] INFORMATION SOURCE (unrecogn ized section and content) [...] BE BASED ON THE PRIMARY CLINICAL RECORDS. [facility]. provides no warranty or guarantee of the accuracy or completeness of information in this document.
[2023-08-05 23:29] LABS: Bedside Glucose > 500 mg/dL (74-106)
[2023-08-05] MEDS: Enoxaparin 30 MG/0.3 ML Syringe SC (23:45)
[2023-08-05] MEDS: Insulin Glargine-YFGN 100 UNIT/ML Pen 15 UNIT SC (23:45)
[2023-08-05] MEDS: Insulin Lispro 100 UNIT/ML INSULN.PEN SC (23:46)
[2023-08-05] MEDS: Nystatin Powder 15gm Bottle 1 APPLIC TOPICAL (23:47)
--- NOTE | 2023-08-06 00:08 | NURSING ---
Pts primary rn aware of critical lab of blood glucose being 700 and chloride of 107 at this time.
[2023-08-06 00:10] LABS: Anion Gap 9 (5-15); BUN 23 mg/dL (7-18); BUN/Creat Ratio 21.5 RATIO (10-20); Calcium,Total 8.6 mg/dL (8.5-10.1); Chloride 107 mmol/L (98-107); Creatinine, Serum 1.07 mg/dL (0.55-1.02); EST Glomerular Filtration Rate 53 mL/min (>60); Est Glom Filt Rate - Afr Amer 64 mL/min (>60); Estimated Creatinine Clearance 32.76 ml/min; Glucose 700 mg/dL (74-106); Potassium 4.2 mmol/L (3.5-5.1); Sodium Level 136 mmol/L (136-145)
[2023-08-06] MEDS: 0.9% Normal Saline (1000mL) 1,000 ML 200 ML IV ×3 (00:38→11:07)
[2023-08-06] MEDS: Insulin Lispro 100 UNIT/ML INSULN.PEN SC ×3 (00:56→17:41)
[2023-08-06 02:51] LABS: Absolute Lymphocyte Count 2.07 X10^3/uL (0.83-4.51); Absolute Neutrophil Count 19.7 X10^3/uL (2.0-7.7); Basophil# 0.06 X10^3/uL; Basophil% 0.3 % (0-1); Hematocrit 30.8 % (37-47); Hemoglobin 10.1 g/dL (12.0-15.0); Lymphocyte # 2.07 X10^3/ul (0.83-4.51); Mean Corp Hgb Conc 32.8 g/dL (32-36); Mean Corpuscular Hgb 30.1 pg (27.0-32.0); Mean Corpuscular Volume 91.9 fL (81-99); Mean Platelet Vol. 9.3 fl (6.2-12.0); Monocyte# 0.94 X10^3/uL; Monocyte% 4.1 % (0-10); NRBC Flagged by Analyzer 0 % (0-5); Neutrophil % 85.7 % (47-70); Platelet Count 243 K/mm3 (150-450); RBC Distribution Width CV 12.8 % (11.6-14.6); RBC Distribution Width SD 42.7 fl (35.1-43.9); Red Blood Count 3.35 M/mm3 (4.2-5.4)
[2023-08-06 03:10] LABS: Anion Gap 9 (5-15); BUN 23 mg/dL (7-18); BUN/Creat Ratio 24.2 RATIO (10-20); Calcium,Total 7.9 mg/dL (8.5-10.1); Chloride 111 mmol/L (98-107); Creatinine, Serum 0.95 mg/dL (0.55-1.02); EST Glomerular Filtration Rate 61 mL/min (>60); Est Glom Filt Rate - Afr Amer 74 mL/min (>60); Glucose 590 mg/dL (74-106); Potassium 4.3 mmol/L (3.5-5.1); Sodium Level 140 mmol/L (136-145)
[2023-08-06 04:00] VITALS: BP 110/56; PULSE 67; RESP 17; TEMP 36.6; O2SAT 99
[2023-08-06 04:49] LABS: Troponin-I HS 1192 pg/mL (3.0-54.0)
[2023-08-06 05:01] LABS: Troponin-I HS 1034 pg/mL (3.0-54.0)
[2023-08-06] MEDS: Menthol/Lanolin/Calamine/Znox 113 GM Tube 1 APPLIC TOPICAL ×3 (05:43→22:40)
[2023-08-06 09:07] VITALS: BP 130/57; PULSE 90; RESP 18; TEMP 36.7; O2SAT 96
[2023-08-06] MEDS: Enoxaparin 30 MG/0.3 ML Syringe SC (09:08)
[2023-08-06 09:15] LABS: Bedside Glucose 378 mg/dL (74-106)
[2023-08-06 10:10] LABS: Troponin-I HS 835 pg/mL (3.0-54.0)
--- NOTE | 2023-08-06 11:08 | CASEMGMT ---
MALCOLM GARCIA Assessment: Face to Face with pt for initial transition planning/care coordination assessment. RN JOSE introduced self and role at [facility], pt voices understanding and consents to assessment. Pt is A&O x4 and answers all questions appropriately at this time. Pt sitting up in chair with dtr and at bedside. Care providers, pharmacy, and demographics verified/updated. Admitting Dx: hyperglycemia, possible UTI PCP:Mauro Guallpa NP Specialists:Denies Preferred Pharmacy:[facility] Insurance: [facility]; MMO Prescription Benefit: yes LNOK: Liam Sweet, Living Arrangements: Pt lives with in a mobile home with 4 steps to enter. Pt reports she is I in ADL's and denies concerns at home. Transportation: Pt drives self and denies concerns with transportation. DME:Does not use AD. Has access to a FWW and cane HHC/SNF: Denies hx of Pt states no concerns with going home at time of dc. Discussed HHC for SN and therapy per recommendations. Pt denies need for this at this time. Patient was provided a list of HHC providers including quality and resource use data and consistent with the patient?s preferred geographic region, medical needs, and insurance network were provided from the [facility] Guide in case she gets home and changes her mind. She is aware that she can notify her PCP to set this up from the community. Pt states no further concerns/needs. Family is in agreement with this plan. CM to follow. Advised pt to ask CM if any further question/concerns/needs arise, voices understanding. Pt Goal: Home Plan: Home
--- NOTE | 2023-08-06 12:23 | PCM.PN.HOSP ---
Reason for Visit Reason for Visit: Diagnoses Hyperglycemia, unspecified (08/05/23) Subjective Subjective Patient admitted yesterday evening for fever/chills, generalized weakness and worsening hyperglycemia at home. Was found to have UTI in the ED as well as hyperglycemia to the 900s, was suspected that UTI was driving factor for her symptoms. Patient seen at bedside this morning. Patient was sitting up comfortably bedside chair, conversing normally, no acute distress. States that she feels weaker than her baseline but otherwise much improved from yesterday after receiving IV fluids. Denies any pain or burning with urination this morning. Denies any pain or discomfort. No other acute concerns this time. Objective Data Objective Data Vital Signs: Vital Signs Temp Pulse Resp BP Pulse Ox O2 Del Method O2 Flow Rate 98.1 F 90 18 130/57 H 96 Room Air 2 08/06/23 09:07 08/06/23 09:07 08/06/23 09:07 08/06/23 09:07 08/06/23 09:07 08/06/23 09:07 08/05/23 22:35 FiO2 1.5 08/05/23 18:43 Oxygen Flow Rate (L/min) 2 Oxygen Delivery Method Room Air Weight: 46.4 kg Body Mass Index (BMI) 18.7 Intake & Output: Intake and Output for Last 24 Hours 08/04/23 08/05/23 08/06/23 23:59 23:59 23:59 Intake Total 2250 / 2280 2890.00 / 2890.00 Output Total 900 / 900 Balance 2250 / 1780 1990.00 / 1989.00 Medical Nutrition Assessment Dietitian: Malnutrition Criteria Met Start: 08/06/23 11:51 Freq: Status: Active Protocol: Document 08/06/23 11:51 AG (Rec: 08/06/23 11:51 AG [id number]) Nutrition Malnutrition Evidence of Malnutrition Exists Yes Malnutrition (severe): Chronic Evidenced By Suboptimal Energy Intake ( Severe),Weight Loss (Severe) Clinical Problem Chronic Disease or Condition Related Malnutrition Etiology severe, chronic malnutrition related to inadequate energy intake Signs/Symptoms as evidenced by unintentional 14% wt loss x 2 months, estimated PO intake meeting < 75% of estimated energy needs x 2 months Status Active Problem Recommendation Dietitian Recommendations/Changes will adjust diet to CHO controlled given evidence of malnutrition; will add 120mL glucerna 4x/day w/ medpass for additional nutrition if consumed Lab / Micro Data 08/07/23 05:44 08/07/23 05:44 Labs: Laboratory Results - last 24 hr 08/05/23 17:53: WBC 21.3 H, RBC 4.38, Hgb 12.9, Hct 40.2, MCV 91.8, MCH 29.5, MCHC 32.1, RDW Std Deviation 43.9, RDW Coeff of Kuldip 13.1, Plt Count 402, MPV 10.0, Immature Gran % (Auto) 0.800, Neut % (Auto) 93.6 H, Lymph % (Auto) 3.1 L, [place] % (Auto) 2.3, Eos % (Auto) 0.0, Baso % (Auto) 0.2, Absolute Neuts (auto) 20.0 H, Absolute Lymphs (auto) 0.66 L, Nucleated RBC % 0, Sodium 129 L, Potassium 4.6, Chloride 94 L, Carbon Dioxide 23.0, Anion Gap 12, BUN 25 H, Creatinine 1.56 H, Estim Creat Clear Calc 22.47, Est GFR (MDRD) Af Amer 42 L, Est GFR (MDRD) Non-Af 34 L, BUN/Creatinine Ratio 16.0, Glucose 956 H*, Calcium 9.9, Phosphorus 2.6, Magnesium 1.8, Total Bilirubin 0.60, Direct Bilirubin 0.23, AST 11 L, ALT 23, Alkaline Phosphatase 105, Troponin I High Sens 153 H*, Total Protein 8.2, Albumin 3.2, Globulin 5.0 H 08/05/23 19:29: Urine Color Yellow, Urine Clarity Clear, Urine pH 6.5, Ur Specific [place] 1.010, Urine Protein 30 H, Urine Glucose (UA) 1000 H, Urine Ketones 5 H, Urine Occult Blood 150 H, Urine Nitrite Positive H, Urine Bilirubin Negative, Urine Urobilinogen Normal, Ur Leukocyte Esterase 25 H, Urine RBC 0-5 SEEN, Urine WBC 0 SEEN, Ur Squamous Epith Cells 0 SEEN, Urine Bacteria 1+, Urine Mucus 0 SEEN 08/05/23 19:30: Acetone Level MODERATE H 08/05/23 20:11: POC Glucose > 500 H* 08/05/23 23:06: POC Glucose > 500 H* 08/05/23 23:30: Sodium 136, Potassium 4.2, Chloride 107, Carbon Dioxide 20.0 L, Anion Gap 9, BUN 23 H, Creatinine 1.07 H, Estim Creat Clear Calc 32.76, Est GFR (MDRD) Af Amer 64, Est GFR (MDRD) Non-Af 53 L, BUN/Creatinine Ratio 21.5 H, Glucose 700 H*, Calcium 8.6 08/06/23 02:34: WBC 23.0 H, RBC 3.35 L, Hgb 10.1 L, Hct 30.8 L, MCV 91.9, MCH 30.1, MCHC 32.8, RDW Std Deviation 42.7, RDW Coeff of Kuldip 12.8, Plt Count 243, MPV 9.3, Immature Gran % (Auto) 0.900, Neut % (Auto) 85.7 H, Lymph % (Auto) 9.0 L, [place] % (Auto) 4.1, Eos % (Auto) 0.0, Baso % (Auto) 0.3, Absolute Neuts (auto) 19.7 H, Absolute Lymphs (auto) 2.07, Nucleated RBC % 0, Sodium 140, Potassium 4.3, Chloride 111 H, Carbon Dioxide 20.0 L, Anion Gap 9, BUN 23 H, Creatinine 0.95, Estim Creat Clear Calc 36.90, Est GFR (MDRD) Af Amer 74, Est GFR (MDRD) Non-Af 61, BUN/Creatinine Ratio 24.2 H, Glucose 590 H*, Calcium 7.9 L, Troponin I High Sens 1192 H* 08/06/23 04:20: Troponin I High Sens 1034 H* 08/06/23 08:45: Troponin I High Sens 835 H* 08/06/23 08:57: POC Glucose 378 H Micro: Microbiology 08/05/23 19:29 Urine Catheter - Catheter Urine Culture - Preliminary Gram negative yoseph 08/05/23 17:53 Blood Culture (Wb) - Anticubital Left Blood Culture - Preliminary 08/05/23 18:02 Blood Culture (Wb) - Anticubital Right Blood Culture - Preliminary 08/05/23 18:05 Mucosa - Nose SARS-CoV-2, Influenza & RSV (PCR) - Final ABG Data ABG results: ABG 08/05/23 19:11 Specimen Type DEDRICK Sample Site Not entered O2 % 2.0 VBG pH 7.39 VBG pO2 56 H VBG HCO3 23 VBG Total CO2 24 VBG O2 Sat (Calc) 88 H VBG Base Excess -2 L POC Mix VBG pCO2 Pt Tmp 38.1 L O2 Delivery Device Cannula Radiography Diagnostic Testing: Radiology Impression Chest X-Ray 08/05/23 18:24 IMPRESSION: There are findings consistent with COPD. There is no evidence of acute chest disease. Electronically Signed: Cb Munoz MD at 18:48 EST , Physical Exam Const alert and no apparent distress Constitutional Narrative: Pleasant elderly female, thin appearing, sitting comfortably in bedside chair, conversing normally, no acute distress. General Appearance: cooperative and comfortable HEENT normocephalic, head/scalp atraumatic, hearing grossly normal bilaterally, nasal mucous membranes and turbinates normal and moist oral mucous membranes Eyes PERRL, EOMs intact bilaterally and conjunctivae normal Neck full ROM, no lymphadenopathy and supple Lymph Lymphatic: no lymphadenopathy noted Chest inspection of chest normal Resp normal respiratory effort, normal air movement, no use of accessory muscles and clear to auscultation bilaterally Cardio regular rate, regular rhythm, no murmurs and peripheral pulses 2+ throughout GI normal to inspection, nondistended, normoactive bowel sounds, soft to palpation, non-tender and non-distended Back/Spine normal ROM Extremity normal to inspection, full ROM and no pedal edema Skin no rashes or lesions noted Neuro no focal motor deficits and no sensory deficits noted Speech: speech normal Psych mental status grossly normal Assessment & Plan Assessment/Plan (1) Elevated troponin: (2) UTI (urinary tract infection): (3) Sepsis: (4) Hyperglycemia: PLAN: Plan Patient is a 78-year-old female who presented to [facility] ED on 08/05/2023 with fever/chills, generalized weakness and reported hyperglycemia at home. 1. Sepsis without shock secondary to UTI, improving Presented with fever to 102.2F, tachycardia, elevated respiratory rate, leukocytosis, mild GWYN in setting of presumed UTI. UA showed positive nitrites, 25 leukocyte esterase, 1+ bacteria. Urine culture pending. S/p 2 L of IV fluids on admission with improvement in vital signs. ? Continue IV ceftriaxone for now. Urine culture and blood cultures pending. Trend CBC. Encouraging p.o. intake. 2. Type 2 diabetes mellitus with severe hyperglycemia concerning for HHS, improving ? Glucose 956 on admit. pH 7.39, bicarb 23, no anion gap, no evidence of DKA. A1c pending. Home regimen of glimepiride 2 mg daily, metformin 750 mg daily. Started on Lantus 15 units at night with sliding-scale insulin with meals, will continue this for now and adjust as needed. 3. Pseudohyponatremia, resolved ? Sodium 129 on admit, corrected sodium 143 in setting of hyperglycemia. Sodium improved with IV fluids and improvement in blood glucose. Resolved. 4. Elevated troponin ? Troponin 153 on admit, worsened to 1192 on 08/06 but rechecks after that were 1034 and 835. No EKG changes noted. No chest pain reported by patient. Suspect largely due to severe volume depletion from sepsis with hyperglycemia as noted above. Will check echo to ensure no cardiac etiology. 5. Acute debility ? PT/OT/case management following. Chronic medical conditions: ? Hypertension: Holding home losartan. ? Hyperlipidemia: Continue home statin. ? Current smoker: Nicotine replacement therapy offered as needed. Encouraged cessation. DVT prophylaxis: Lovenox CODE STATUS: DNR CCA, DNI Expected disposition: Home with home health care versus SNF, 2 to 3 days Total clinical time spent by myself addressing the patient's medical issues, reviewing all the data, and collaborating with patient's care team: 35 minutes. Charges/Coding Visit Charges Inpatient E&M: 73023 Subs Hosp L2
[2023-08-06 12:34] LABS: Bedside Glucose > 500 mg/dL (74-106)
[2023-08-06] MEDS: Insulin Lispro 100 UNIT/ML INSULN.PEN 27 UNIT SC (12:49)
[2023-08-06] MEDS: Glucerna Shake 120 ML LIQUID PO ×3 (15:02→22:39)
[2023-08-06 15:23] LABS: Bedside Glucose 442 mg/dL (74-106)
[2023-08-06 16:00] VITALS: BP 114/59; PULSE 87; RESP 18; TEMP 36.6; O2SAT 95
[2023-08-06] MEDS: Insulin Lispro 100 UNIT/ML INSULN.PEN 12 UNIT SC (16:22)
[2023-08-06] MEDS: Insulin Glargine-YFGN 100 UNIT/ML Pen 15 UNIT SC (16:26)
[2023-08-06] MEDS: Insulin Lispro 100 UNIT/ML INSULN.PEN 10 UNIT SC (17:41)
[2023-08-06 18:00] LABS: Bedside Glucose 335 mg/dL (74-106)
[2023-08-06 22:00] VITALS: BP 123/57; PULSE 92; RESP 16; TEMP 37.2; O2SAT 94
[2023-08-06] MEDS: Ceftriaxone 1 GM/50 ML BAG IV (22:40)
[2023-08-07] VITALS (8 sets, daily range): BP systolic 106–190; BP diastolic 50–92; PULSE 81–148; RESP 14–30; TEMP 36.6–39.4; O2SAT 92–98
[2023-08-07 01:38] LABS: Bedside Glucose 91 mg/dL (74-106)
--- NOTE | 2023-08-07 03:24 | PN.HOSP_ITS ---
Hospitalist Note Patient was tachycardic, once heart rate 150s and blood pressure also 180s but VBA error as second blood pressure came up 157/89 heart rate in 128/min. Patient also febrile temperature 100.3. Urine and blood culture growing gram- negative yoseph and patient on IV ceftriaxone. I suspect patient might have Pseudomonas or other gram-negative bacteria not sensitive to ceftriaxone therefore IV antibiotic changed to cefepime 1 g every 8 hourly IV fluid 500 Normal Saline bolus. Metoprolol 5 mg IV every 6 hours as needed ordered for heart rate more than 130/m after hypovolemia corrected.
[2023-08-07] MEDS: Cefepime HCl 1 GM in 0.9% Normal Saline (50mL MB+) 50 ML IV ×3 (03:43→22:20)
[2023-08-07] MEDS: 0.9% Normal Saline (500mL Bag) 500 ML 999 ML IV (03:43)
[2023-08-07] MEDS: Acetaminophen 325 MG Tablet 650 MG PO (03:46)
[2023-08-07 06:12] LABS: Hematocrit 29.8 % (37-47); Hemoglobin 10.3 g/dL (12.0-15.0); Mean Corp Hgb Conc 34.6 g/dL (32-36); Mean Corpuscular Hgb 30.8 pg (27.0-32.0); Mean Corpuscular Volume 89.2 fL (81-99); Mean Platelet Vol. 9.6 fl (6.2-12.0); Platelet Count 247 K/mm3 (150-450); RBC Distribution Width SD 42.4 fl (35.1-43.9); Red Blood Count 3.34 M/mm3 (4.2-5.4)
[2023-08-07 06:28] LABS: Anion Gap 6 (5-15); BUN 14 mg/dL (7-18); BUN/Creat Ratio 23.1 RATIO (10-20); Calcium,Total 7.9 mg/dL (8.5-10.1); Chloride 112 mmol/L (98-107); EST Glomerular Filtration Rate 102 mL/min (>60); Est Glom Filt Rate - Afr Amer 124 mL/min (>60); Estimated Creatinine Clearance 43.82 ml/min; Glucose 224 mg/dL (74-106); Sodium Level 140 mmol/L (136-145)
[2023-08-07] MEDS: Menthol/Lanolin/Calamine/Znox 113 GM Tube 1 APPLIC TOPICAL ×3 (06:41→22:18)
[2023-08-07 07:36] LABS: Bedside Glucose 118 mg/dL (74-106)
[2023-08-07] MEDS: Glucerna Shake 120 ML LIQUID PO ×4 (08:39→22:17)
[2023-08-07] MEDS: Potassium Chloride Oral Tablet 20 MEQ 40 MEQ PO (08:40)
[2023-08-07] MEDS: Enoxaparin 30 MG/0.3 ML Syringe SC (08:40)
[2023-08-07] MEDS: 0.9% Saline Lock 10 ML Syringe IV (08:40)
[2023-08-07] MEDS: Insulin Lispro 100 UNIT/ML INSULN.PEN 10 UNIT SC ×3 (08:41→16:49)
[2023-08-07] MEDS: Insulin Lispro 100 UNIT/ML INSULN.PEN SC ×4 (08:41→22:18)
[2023-08-07 08:44] LABS: Bedside Glucose 256 mg/dL (74-106)
[2023-08-07 12:20] LABS: Bedside Glucose 416 mg/dL (74-106)
--- NOTE | 2023-08-07 14:38 | ECHOD_ITS ---
Reason For Study: Chest Pain Procedure This was a 2D Doppler, Color Flow transthoracic echocardiogram. Exam performed portable in patient room. Left Ventricle Normal LV size. The estimated ejection fraction is 60-65 %. No evidence for diastolic dysfunction. No regional wall motion abnormalities noted. Right Ventricle Normal RV size. Normal systolic function. Atria Normal left atrium. Normal right atrium. No doppler evidence for ASD. Mitral Valve There is no mitral valve stenosis. Trivial mitral valve insufficiency. Tricuspid Valve There is no tricuspid stenosis. Trivial tricuspid valve insufficiency. Unable to estimate RV systolic pressure due to insufficient tricuspid regurgitant envelope. Aortic Valve Trisinus/trileaflet aortic valve. There is no aortic stenosis. No aortic valve insufficiency. Pulmonic Valve There is no pulmonic valvular stenosis. No pulmonic valve insufficiency. Great Vessels Normal aortic root. Pericardium/Pleural No pericardial effusion. MMode/2D Measurements & Calculations LVIDd: 4.8 cm IVSd: 0.82 cm Ao root diam: 3.2 cm LVIDs: 3.7 cm LVPWd: 0.85 cm LA dimension: 4.0 cm RVDd: 3.0 cm FS: 22.9 % LAV(MOD-bp): 38.0 ml LA A4 area: 12.7 cm2 RA A4 area: 10.5 cm2 LAV(MOD-bp) Indexed: 26.5 ml/m2 LAV(MOD-sp2): 47.6 ml LAV(MOD-sp4): 29.9 ml TAPSE: 2.0 cm Time Measurements MV dec time: 0.26 sec Doppler Measurements & Calculations MV E max roshan: 77.6 cm/sec Lat Peak E' Roshan: 7.6 cm/sec Med Peak E' Roshan: 7.4 cm/sec MV A max roshan: 115.7 cm/sec E/E' lat: 10.3 E/E' med: 10.5 MV E/A: 0.67 MV V2 max: 137.2 cm/sec MV P1/2t max roshan: 99.5 cm/sec Ao V2 max: 128.3 cm/sec MV max P.5 mmHg MV P1/2t: 89.2 msec Ao max P.6 mmHg MV V2 mean: 69.2 cm/sec MV mean P.3 mmHg MV dec slope: 326.5 cm/sec2 MV V2 VTI: 31.8 cm MVA(P1/2t): 2.5 cm2 LV V1 max: 106.6 cm/sec PA V2 max: 84.2 cm/sec LV V1 max P.6 mmHg PA V2 mean: 61.6 cm/sec LV V1 mean P.2 mmHg LV V1 mean: 69.0 cm/sec LV V1 VTI: 21.0 cm ECHO/Echo Complete Interpretation Summary The estimated ejection fraction is 60-65 %. No evidence for diastolic dysfunction. Trivial mitral valve insufficiency. Ordering Physician: Baldev Gaxiola Performed By: Chalo Atkins RCS
--- NOTE | 2023-08-07 14:41 | PCM.PN.HOSP ---
Reason for Visit Reason for Visit: Diagnoses Hyperglycemia, unspecified (08/05/23) Subjective Subjective Overnight, patient developed a fever of 103.0F and had significant tachycardia with noted generalized discomfort. See Dr. Alcaraz's note for further details. Patient seen at bedside this morning, family members present. Patient appeared much improved this morning, was sitting comfortably in bedside chair, conversing normally and in no acute distress. She actually appeared similar this morning to how she looked yesterday morning. Stated she feels much improved compared to overnight. She denies any fevers or chills. Denies any acute pain or discomfort at this time. No other acute concerns. Objective Data Objective Data Vital Signs: Vital Signs Temp Pulse Resp BP Pulse Ox O2 Del Method O2 Flow Rate 98.6 F 91 18 117/50 L 94 Room Air 2 08/07/23 08:37 08/07/23 08:37 08/07/23 08:37 08/07/23 08:37 08/07/23 08:37 08/07/23 13:55 08/07/23 07:52 FiO2 1.5 08/05/23 18:43 Oxygen Flow Rate (L/min) 2 Oxygen Delivery Method Room Air Weight: 46.4 kg Body Mass Index (BMI) 18.7 Intake & Output: Intake and Output for Last 24 Hours 08/05/23 08/06/23 08/07/23 23:59 23:59 23:59 Intake Total 2250 / 2280 4140.00 / 4140.00 1100 / 1100 Output Total 1650 / 2150 1200 / 1200 Balance 2250 / 1780 2490.00 / 1990.00 -100 / -100 Medical Nutrition Assessment Dietitian: Malnutrition Criteria Met Start: 08/06/23 11:51 Freq: Status: Active Protocol: Document 08/06/23 11:51 AG (Rec: 08/06/23 11:51 AG [id number]) Nutrition Malnutrition Evidence of Malnutrition Exists Yes Malnutrition (severe): Chronic Evidenced By Suboptimal Energy Intake ( Severe),Weight Loss (Severe) Clinical Problem Chronic Disease or Condition Related Malnutrition Etiology severe, chronic malnutrition related to inadequate energy intake Signs/Symptoms as evidenced by unintentional 14% wt loss x 2 months, estimated PO intake meeting < 75% of estimated energy needs x 2 months Status Active Problem Recommendation Dietitian Recommendations/Changes will adjust diet to CHO controlled given evidence of malnutrition; will add 120mL glucerna 4x/day w/ medpass for additional nutrition if consumed Lab / Micro Data 08/07/23 05:44 08/07/23 05:44 Labs: Laboratory Results - last 24 hr 08/06/23 15:04: POC Glucose 442 H 08/06/23 17:39: POC Glucose 335 H 08/06/23 22:38: POC Glucose 91 08/07/23 02:27: POC Glucose 118 H 08/07/23 05:44: WBC 19.0 H, RBC 3.34 L, Hgb 10.3 L, Hct 29.8 L, MCV 89.2, MCH 30.8, MCHC 34.6 D, RDW Std Deviation 42.4, RDW Coeff of Kuldip 13.0, Plt Count 247, MPV 9.6, Sodium 140, Potassium 3.0 L, Chloride 112 H, Carbon Dioxide 22.0, Anion Gap 6, BUN 14, Creatinine 0.60, Estim Creat Clear Calc 43.82, Est GFR (MDRD) Af Amer 124, Est GFR (MDRD) Non-Af 102, BUN/Creatinine Ratio 23.1 H, Glucose 224 H, Calcium 7.9 L 08/07/23 08:26: POC Glucose 256 H 08/07/23 11:34: POC Glucose 416 H Micro: Microbiology 08/05/23 19:29 Urine Catheter - Catheter Urine Culture - Final Escherichia coli 08/05/23 18:02 Blood Culture (Wb) - Anticubital Right Blood Culture - Preliminary Gram negative yoseph 08/05/23 17:53 Blood Culture (Wb) - Anticubital Left Blood Culture - Preliminary Gram negative yoseph 08/05/23 18:05 Mucosa - Nose SARS-CoV-2, Influenza & RSV (PCR) - Final Physical Exam Const alert and no apparent distress Constitutional Narrative: Pleasant elderly female, thin appearing, sitting comfortably in bedside chair, conversing normally, no acute distress. General Appearance: cooperative and comfortable HEENT normocephalic, head/scalp atraumatic, hearing grossly normal bilaterally, nasal mucous membranes and turbinates normal and moist oral mucous membranes Eyes PERRL, EOMs intact bilaterally and conjunctivae normal Neck full ROM, no lymphadenopathy and supple Lymph Lymphatic: no lymphadenopathy noted Chest inspection of chest normal Resp normal respiratory effort, normal air movement, no use of accessory muscles and clear to auscultation bilaterally Cardio regular rate, regular rhythm, no murmurs and peripheral pulses 2+ throughout GI normal to inspection, nondistended, normoactive bowel sounds, soft to palpation, non-tender and non-distended Back/Spine normal ROM Extremity normal to inspection, full ROM and no pedal edema Skin no rashes or lesions noted Neuro no focal motor deficits and no sensory deficits noted Speech: speech normal Psych mental status grossly normal Assessment & Plan Assessment/Plan (1) Elevated troponin: (2) UTI (urinary tract infection): (3) Sepsis: (4) Hyperglycemia: (5) Gram-negative bacteremia: PLAN: Plan Patient is a 78-year-old female who presented to [facility] ED on 08/05/2023 with fever/chills, generalized weakness and reported hyperglycemia at home. 1. Sepsis without shock secondary to UTI; Gram-negative bacteremia Presented with fever to 102.2F, tachycardia, elevated respiratory rate, leukocytosis, mild GWYN in setting of presumed UTI. UA showed positive nitrites, 25 leukocyte esterase, 1+ bacteria. S/p 2 L of IV fluids on admission with improvement in vital signs. Urine culture and blood cultures +2/2 for E. coli, sensitivities pending. ? Continue IV cefepime for now, follow-up sensitivities. Continue to encourage p.o. intake. Renal/bladder ultrasound ordered to assess for pyelonephritis. 2. Type 2 diabetes mellitus with severe hyperglycemia concerning for HHS, improving ? Glucose 956 on admit. pH 7.39, bicarb 23, no anion gap, no evidence of DKA. A1c pending. Home regimen of glimepiride 2 mg daily, metformin 750 mg daily. Continue Lantus 15 units at night, Humalog 10 units with meals plus sliding scale insulin, adjust as needed. 3. Pseudohyponatremia, resolved ? Sodium 129 on admit, corrected sodium 143 in setting of hyperglycemia. Sodium improved with IV fluids and improvement in blood glucose. Resolved. 4. Elevated troponin ? Troponin 153 on admit, worsened to 1192 on 08/06 but rechecks after that were 1034 and 835. No EKG changes noted. No chest pain reported by patient. Suspect largely due to severe volume depletion from sepsis with hyperglycemia as noted above. Echo pending. 5. Acute debility ? PT/OT/case management following. Planning for home with home health care. Chronic medical conditions: ? Hypertension: Holding home losartan. ? Hyperlipidemia: Continue home statin. ? Current smoker: Nicotine replacement therapy offered as needed. Encouraged cessation. DVT prophylaxis: Lovenox CODE STATUS: DNR CCA, DNI Expected disposition: Home with home health care versus SNF, 2 to 3 days Total clinical time spent by myself addressing the patient's medical issues, reviewing all the data, and collaborating with patient's care team: 35 minutes. Charges/Coding Visit Charges Inpatient E&M: 21466 Subs Hosp L2
[2023-08-07 17:10] LABS: Bedside Glucose 432 mg/dL (74-106)
[2023-08-07 17:11] LABS: Hemoglobin A1c 12.4 % (3.8-5.6)
--- NOTE | 2023-08-07 22:00 | NURSING ---
Per pt request, this RN placed patients wedding ring in a blue denture cup w/ lid in locked medication sheet metal installer patient's room. Cup labeled w/ pt's name, and room number. Pt visualized this RN locking cup w/ ring into medication drawer.
[2023-08-07] MEDS: Atorvastatin Calcium 20 MG Tablet PO (22:18)
[2023-08-07] MEDS: Insulin Glargine-YFGN 100 UNIT/ML Pen 15 UNIT SC (22:19)
[2023-08-07 22:54] LABS: Bedside Glucose 295 mg/dL (74-106)
--- NOTE | 2023-08-08 01:00 | NURSING ---
this nurse took over care for this patient at 0100. pt resting with eyes closed, call light within reach
[2023-08-08 04:15] VITALS: BP 113/62; PULSE 85; RESP 16; TEMP 36.8; O2SAT 95
--- NOTE | 2023-08-08 06:00 | US_ITS ---
STUDY: RENAL ULTRASOUND - COMPLETE REASON FOR EXAM: Female, 78 years old. Uti w/ bacteremia, r/o hydronephrosis TECHNIQUE: Ultrasound evaluation of the kidneys was performed with real-time and static cruz-scale imaging. COMPARISON: None. FINDINGS: RIGHT KIDNEY: Normal location of the right kidney, which is normal in size. The right kidney measures 10.1 cm x 4.8 cm x 4.7 cm. There is a normal cortex of the right kidney. The renal cortex measures 1.3 cm. There is a 1.8 cm x 1.5 cm x 1.9 cm cyst in the upper lateral aspect of the right kidney. Peripheral calcification is seen. This is not a simple cyst. Correlation with the CT scan the abdomen is recommended for further evaluation. There are no right renal calculi. There is mild hydronephrosis of the right kidney. DISTAL RIGHT URETER: There is non-visualization of the distal right ureter. There is no demonstrated right ureterovesical junction calculus. There is a visualized right ureteral jet. LEFT KIDNEY: Normal location of the left kidney, which is normal in size. The left kidney measures 9 cm x 4.5 cm x 5 cm. There is a normal cortex of the left kidney. The renal cortex measures 1 cm. There is a 1.4 cm x 1.3 cm x 1.3 cm cyst. There are 2, small nonobstructive left intrarenal calculi. There is no left hydronephrosis. DISTAL LEFT URETER: There is non-visualization of the distal left ureter. There is no demonstrated left ureterovesical junction calculus. There is a visualized left ureteral jet. BLADDER: The distended urinary bladder has a volume of 141 ml. There is a normal wall thickness of the distended urinary bladder. There is no demonstrated mass within the urinary bladder. There are no demonstrated bladder calculi. US/Kidney and Bladder IMPRESSION: Mild degree of right hydronephrosis. 1.8 cm x 1.5 cm x 1.9 cm complex cyst in the upper lateral aspect of the right kidney as described. Correlation with a CT scan is recommended. Left renal cyst. There are 2 tiny nonobstructive left intrarenal calculi. Electronically Signed: Colt Martinez MD at 12:01 EST ,
[2023-08-08] MEDS: Menthol/Lanolin/Calamine/Znox 113 GM Tube 1 APPLIC TOPICAL ×2 (06:32→23:01)
[2023-08-08] MEDS: Insulin Lispro 100 UNIT/ML INSULN.PEN 10 UNIT SC ×3 (08:00→16:22)
[2023-08-08] MEDS: Insulin Lispro 100 UNIT/ML INSULN.PEN SC ×4 (08:00→23:01)
[2023-08-08] MEDS: Enoxaparin 30 MG/0.3 ML Syringe SC (08:01)
[2023-08-08] MEDS: Glucerna Shake 120 ML LIQUID PO (08:03)
[2023-08-08 08:37] LABS: Bedside Glucose 191 mg/dL (74-106)
[2023-08-08 09:30] VITALS: BP 114/72; PULSE 86; RESP 12; TEMP 37; O2SAT 94
[2023-08-08 09:51] LABS: Anion Gap 5 (5-15); BUN 12 mg/dL (7-18); BUN/Creat Ratio 16.2 RATIO (10-20); Calcium,Total 8.6 mg/dL (8.5-10.1); Chloride 111 mmol/L (98-107); Creatinine, Serum 0.74 mg/dL (0.55-1.02); EST Glomerular Filtration Rate 81 mL/min (>60); Est Glom Filt Rate - Afr Amer 98 mL/min (>60); Estimated Creatinine Clearance 43.82 ml/min; Glucose 128 mg/dL (74-106); Potassium 3.3 mmol/L (3.5-5.1); Sodium Level 140 mmol/L (136-145)
--- NOTE | 2023-08-08 11:10 | NURSING ---
Mariela discharge door operator nurse documenting/monitoring tele.
[2023-08-08] MEDS: Cefepime HCl 1 GM in 0.9% Normal Saline (50mL MB+) 50 ML IV ×2 (11:17→23:00)
[2023-08-08 11:51] LABS: Bedside Glucose 171 mg/dL (74-106)
--- NOTE | 2023-08-08 12:36 | CT_ITS ---
STUDY: CT ABDOMEN AND PELVIS WITHOUT CONTRAST REASON FOR EXAM: Female, 78 years old. Evaluate renal cyst. Hyperglycemia. Possible UTI. RADIATION DOSAGE (If Supplied By Facility): CTDIvol = ( 6.05 ) mGy, DLP = ( 272.16 ) mGycm TECHNIQUE: Transaxial images were obtained from the dome of the diaphragm to the symphysis pubis without oral contrast, and without intravenous contrast. Sagittal and coronal images were reconstructed. 3-D images were reconstructed. Individualized dose optimization techniques were used for this CT. COMPARISON: None. FINDINGS: Small bilateral pleural effusions right greater than left with bibasilar atelectasis. Carotid artery calcification. There is hepatomegaly with diffuse hepatic enlargement. There are surgical clips in the gallbladder fossa consistent with a prior cholecystectomy. Normal spleen. Normal pancreas. Normal bilateral adrenal glands. There is a 7.3 mm calculus in the right renal pelvis. Mild degree of right hydronephrosis due to a 5.9 mm calculus in the midportion of the right ureter. Normal left kidney. There is a large hiatal hernia composed mostly of the fundus of the stomach. Normal small intestine. There are multiple colonic diverticula consistent with diverticulosis. Moderate amount of fecal material is seen in the colon. The appendix is visualized and appears normal. There is diffuse atherosclerotic calcification of the abdominal aorta and its major visceral branches, without a demonstrated aneurysm. Normal inferior vena cava. Normal retroperitoneum. Normal urinary bladder. Normal abdominal wall. There are diffuse degenerative changes of the visualized lumbar spine. Scoliosis. CT/Abdomen/Pelvis without Cont IMPRESSION: 5.0 mm calculi within the midportion of the right ureter causing mild degree of right hydronephrosis. Nonobstructive right intrarenal calculus. Sigmoid diverticulosis. Small bilateral pleural effusions with the bibasilar atelectasis and/or infiltration. Electronically Signed: Colt Martinez MD at 13:48 EST ,
[2023-08-08] MEDS: 0.9% Saline Lock 10 ML Syringe IV (12:38)
--- NOTE | 2023-08-08 14:24 | PCM.PN.HOSP ---
Reason for Visit Reason for Visit: Diagnoses Sepsis, unspecified organism (08/05/23) Urinary tract infection, site not specified (08/05/23) Hyperglycemia, unspecified (08/05/23) Bacteremia (08/05/23) Other specified abnormal findings of blood chemistry (08/05/23) Subjective Subjective No acute events overnight. Patient seen at bedside this afternoon, as she was having her echocardiogram done this morning. Patient was sitting comfortably in bedside chair, conversing normally, no acute distress. Patient denied any fevers or chills today. She denied any right-sided back pain or discomfort. Denied any pain with urination. She felt close to her baseline and was hoping to go home soon. No other acute concerns this time. Objective Data Objective Data Vital Signs: Vital Signs Temp Pulse Resp BP Pulse Ox O2 Del Method O2 Flow Rate 98.6 F 86 12 114/72 94 Room Air 2 08/08/23 09:30 08/08/23 09:30 08/08/23 09:30 08/08/23 09:30 08/08/23 09:30 08/08/23 09:30 08/07/23 07:52 FiO2 1.5 08/05/23 18:43 Oxygen Flow Rate (L/min) 2 Oxygen Delivery Method Room Air Weight: 46.4 kg Body Mass Index (BMI) 18.7 Intake & Output: Intake and Output for Last 24 Hours 08/06/23 08/07/23 08/08/23 23:59 23:59 23:59 Intake Total 4140.00 / 4140.00 1900 / 1900 50 / 50 Output Total 1650 / 2150 1200 / 1600 750 / 750 Balance 2490.00 / 1990.00 700 / 300 -700 / -700 Medical Nutrition Assessment Dietitian: Malnutrition Criteria Met Start: 08/06/23 11:51 Freq: Status: Active Protocol: Document 08/06/23 11:51 AG (Rec: 08/06/23 11:51 AG [id number]) Nutrition Malnutrition Evidence of Malnutrition Exists Yes Malnutrition (severe): Chronic Evidenced By Suboptimal Energy Intake ( Severe),Weight Loss (Severe) Clinical Problem Chronic Disease or Condition Related Malnutrition Etiology severe, chronic malnutrition related to inadequate energy intake Signs/Symptoms as evidenced by unintentional 14% wt loss x 2 months, estimated PO intake meeting < 75% of estimated energy needs x 2 months Status Active Problem Recommendation Dietitian Recommendations/Changes will adjust diet to CHO controlled given evidence of malnutrition; will add 120mL glucerna 4x/day w/ medpass for additional nutrition if consumed Lab / Micro Data 08/07/23 05:44 08/08/23 09:05 Labs: Laboratory Results - last 24 hr 08/07/23 05:44: Hemoglobin A1c 12.4 H 08/07/23 16:47: POC Glucose 432 H 08/07/23 22:12: POC Glucose 295 H 08/08/23 07:55: POC Glucose 191 H 08/08/23 09:05: Sodium 140, Potassium 3.3 L, Chloride 111 H, Carbon Dioxide 24.0, Anion Gap 5, BUN 12, Creatinine 0.74, Estim Creat Clear Calc 43.82, Est GFR (MDRD) Af Amer 98, Est GFR (MDRD) Non-Af 81, BUN/Creatinine Ratio 16.2, Glucose 128 H, Calcium 8.6 08/08/23 11:33: POC Glucose 171 H Micro: Microbiology 08/05/23 17:53 Blood Culture (Wb) - Anticubital Left Blood Culture - Final Escherichia coli 08/05/23 19:29 Urine Catheter - Catheter Urine Culture - Final Escherichia coli 08/05/23 18:02 Blood Culture (Wb) - Anticubital Right Blood Culture - Preliminary Gram negative yoseph 08/05/23 18:05 Mucosa - Nose SARS-CoV-2, Influenza & RSV (PCR) - Final Radiography Diagnostic Testing: Radiology Impression Echocardiogram 08/07/23 14:38 Interpretation Summary The estimated ejection fraction is 60-65 %. No evidence for diastolic dysfunction. Trivial mitral valve insufficiency. Ordering Physician: Baldev Gaxiola Performed By: Chalo Atkins RCS Renal Ultrasound 08/08/23 06:00 IMPRESSION: Mild degree of right hydronephrosis. 1.8 cm x 1.5 cm x 1.9 cm complex cyst in the upper lateral aspect of the right kidney as described. Correlation with a CT scan is recommended. Left renal cyst. There are 2 tiny nonobstructive left intrarenal calculi. Electronically Signed: Colt Martinez MD at 12:01 EST , Abdomen/Pelvis CT 08/08/23 12:36 IMPRESSION: 5.0 mm calculi within the midportion of the right ureter causing mild degree of right hydronephrosis. Nonobstructive right intrarenal calculus. Sigmoid diverticulosis. Small bilateral pleural effusions with the bibasilar atelectasis and/or infiltration. Electronically Signed: Colt Martinez MD at 13:48 EST , Physical Exam Const alert and no apparent distress Constitutional Narrative: Pleasant elderly female, thin appearing, sitting comfortably in bedside chair, conversing normally, no acute distress. General Appearance: cooperative and comfortable HEENT normocephalic, head/scalp atraumatic, hearing grossly normal bilaterally, nasal mucous membranes and turbinates normal and moist oral mucous membranes Eyes PERRL, EOMs intact bilaterally and conjunctivae normal Neck full ROM, no lymphadenopathy and supple Lymph Lymphatic: no lymphadenopathy noted Chest inspection of chest normal Resp normal respiratory effort, normal air movement, no use of accessory muscles and clear to auscultation bilaterally Cardio regular rate, regular rhythm, no murmurs and peripheral pulses 2+ throughout GI normal to inspection, nondistended, normoactive bowel sounds, soft to palpation, non-tender and non-distended no CVA tenderness Bladder / Kidney Exam: No catheter in place and bladder normal to palpation Back/Spine normal ROM Extremity normal to inspection, full ROM and no pedal edema Skin no rashes or lesions noted Neuro no focal motor deficits and no sensory deficits noted Speech: speech normal Psych mental status grossly normal Assessment & Plan Assessment/Plan (1) Elevated troponin: (2) UTI (urinary tract infection): (3) Sepsis: (4) Hyperglycemia: (5) Gram-negative bacteremia: PLAN: Plan Patient is a 78-year-old female who presented to [facility] ED on 08/05/2023 with fever/chills, generalized weakness and reported hyperglycemia at home. 1. Sepsis without shock secondary to UTI; Gram-negative bacteremia; Mild right-sided hydronephrosis with nephrolithiasis Presented with fever to 102.2F, tachycardia, elevated respiratory rate, leukocytosis, mild GWYN in setting of presumed UTI. UA showed positive nitrites, 25 leukocyte esterase, 1+ bacteria. S/p 2 L of IV fluids on admission with improvement in vital signs. Urine culture and blood cultures +2/2 for E. coli. Renal/bladder ultrasound showed mild degree of right hydronephrosis, renal cyst with recommendation for CT scan for correlation. CT abdomen pelvis without contrast showed 5.0 mm calculi within midportion of right ureter causing mild degree of right hydronephrosis. ? Urology consulted. Continue IV cefepime for now. Continue to encourage p.o. intake. 2. Type 2 diabetes mellitus with severe hyperglycemia concerning for HHS, improving ? Glucose 956 on admit. pH 7.39, bicarb 23, no anion gap, no evidence of DKA. A1c pending. Home regimen of glimepiride 2 mg daily, metformin 750 mg daily. Continue Lantus 15 units at night, Humalog 10 units with meals plus sliding scale insulin, adjust as needed. 3. Pseudohyponatremia, resolved ? Sodium 129 on admit, corrected sodium 143 in setting of hyperglycemia. Sodium improved with IV fluids and improvement in blood glucose. Resolved. 4. Elevated troponin ? Troponin 153 on admit, worsened to 1192 on 08/06 but rechecks after that were 1034 and 835. No EKG changes noted. No chest pain reported by patient. Suspect largely due to severe volume depletion from sepsis with hyperglycemia as noted above. TTE 08/08 showed EF 60 to 65%, no evidence of diastolic dysfunction, no regional wall motion abnormalities noted, no significant valvular disease. No need for further workup at this time. 5. Mild debility ? PT/OT/case management following. Planning for either home with home health care versus home with outpatient physical therapy on discharge. Chronic medical conditions: ? Hypertension: Holding home losartan. ? Hyperlipidemia: Continue home statin. ? Current smoker: Nicotine replacement therapy offered as needed. Encouraged cessation. DVT prophylaxis: Lovenox CODE STATUS: DNR CCA, DNI Expected disposition: Home, 1 to 2 days Total clinical time spent by myself addressing the patient's medical issues, reviewing all the data, and collaborating with patient's care team: 35 minutes. Charges/Coding Visit Charges Inpatient E&M: 59939 Subs Hosp L2
--- NOTE | 2023-08-08 14:54 | NURSING ---
Valarie Sellers resuming care of pt
--- NOTE | 2023-08-08 16:01 | NURSING ---
Mariela kiln charger nurse continues to run strips/document/assess telemetry.
--- NOTE | 2023-08-08 16:27 | CHAPLAIN ---
Type of Pastoral Visit _x__ Initial Visit ___ Follow-up Visit ___ On-call Visit ___ General Patient Visit ___ Spiritual Assessment ___ Family Conference ___ Bereavement ___ Rapid Response ___ Code Blue ___ Other (describe below) Pastoral Care Referral From _x__ Patient ___ Family ___ Nurse ___ Physician ___ Bookbinding Machine Operator ___ Dope Edger ___ Other (describe below) Sacrament/Intervention _x__ Active listening ___ Anointing ___ Buddhism _x__ Bereavement ___ Communion ___ Alfreda exploration ___ _x__ Life review _x__ Prayer ___ Reconciliation ___ Sacrament of Sick _x__ Supportive presence ___ Wedding ___ Other (describe below) Pastoral Comments PT was just finishing therapy with this patient; offer of presence and support given to pt who first of all reports feeling much better today and seeing good things; pt admits that there are also other areas that they are looking at ; when asked about how she is managing, the patient admits that she is distressed and asks for prayers for her daughter who is dying right now ; pt states that her Downs Syndrome daughter is actively dying in the skilled nursing; pt says she is torn because of not being there, but my is and maybe it's best that I am not ; pt is tearful; compassionate care and support given; prayer is offered for patient and her daughter; offer of ongoing support as needed is given
[2023-08-08 16:43] LABS: Bedside Glucose 325 mg/dL (74-106)
[2023-08-08 17:11] LABS: Bedside Glucose 290 mg/dL (74-106)
[2023-08-08 18:00] VITALS: BP 118/68; PULSE 84; RESP 12; TEMP 36.6; O2SAT 94
[2023-08-08 23:00] VITALS: BP 114/74; PULSE 80; RESP 16; TEMP 36.6; O2SAT 95
[2023-08-08] MEDS: Atorvastatin Calcium 20 MG Tablet PO (23:00)
[2023-08-08] MEDS: Insulin Glargine-YFGN 100 UNIT/ML Pen 15 UNIT SC (23:00)
[2023-08-08 23:24] LABS: Bedside Glucose 270 mg/dL (74-106)
[2023-08-09] VITALS (13 sets, daily range): BP systolic 107–140; BP diastolic 50–94; PULSE 75–99; RESP 16; TEMP 36.4–37.4; O2SAT 90–98
[2023-08-09] MEDS: Menthol/Lanolin/Calamine/Znox 113 GM Tube 1 APPLIC TOPICAL ×3 (06:04→20:58)
--- NOTE | 2023-08-09 06:09 | PCM.CONS.U ---
Assessment & Plan Assessment/Plan (1) Sepsis: (2) Ureteral stone: HPI Consult Data Date of Consult: 08/09/23 HPI Narrative Reason for Consultation: kidney stone uti HPI Narrative: VIKY WOLF, is a 78 F who presents to hospital with UTI and stone, sepsis but not in shock but dies have a large obstructiong ston in mid right ureter, add on urgently tiday for a cysto and right stent, house sup called, npo now and get consent [facility] Medical History (Updated 08/09/23 @ 06:[address] Roshan Simon MD) Anemia Bowel obstruction COPD (chronic obstructive pulmonary disease) Diabetes Encounter for screening for malignant neoplasm of lung in current smoker with 30 pack year history or greater Hyperlipidemia Osteoporosis Smoker Tobacco use disorder, continuous Vision loss of left eye Vision loss of right eye Vitamin D deficiency Home Medications glimepiride 2 mg tablet 2 mg PO DAILY dm 09/13/19 [History Last Taken Unknown] simvastatin 40 mg tablet 40 mg PO QHS cholesterol 09/13/19 [History Last Taken Unknown] vit C 250 mg-vit E 90 mg-zinc 40 mg-copper 1 [id number] capsule (PreserVision AREDS-2) 1 tab PO BID 01/13/21 [History Last Taken Unknown] cholecalciferol (vitamin D3) 1,250 mcg (50,000 unit) capsule 1,250 mcg PO .MONTHLY supplement 08/05/23 [History Last Taken Unknown] losartan 25 mg tablet 25 mg PO DAILY bp 08/05/23 [History Last Taken Unknown] metformin 750 mg tablet,extended release 24 hr 750 mg PO DAILY dm 08/05/23 [History Last Taken Unknown] Allergy/AdvReac Type Severity Reaction Status Date / Time No Known Allergies Allergy Verified 08/05/23 17:58 Family History Father CAD (coronary artery disease) Myocardial infarction Osteoarthritis Brother Multiple myeloma older younger brother Brain aneurysm younger brother Surgical History (Updated 08/05/23 @ 22:50 by Barbara Lea RN) History of cholecystectomy History of hysterectomy History of intestinal surgery History of removal of ovarian cyst Social History Smoking Status: Current every day smoker tobacco type: cigarettes Tobacco: How many years used: 25 Electronic Cigarette Use: not used second hand exposure: Yes quit status: considering quitting counseling given: provider counseling Medical Records Data Medical Nutrition Assessment Dietitian: Malnutrition Criteria Met Start: 08/06/23 11:51 Freq: Status: Active Protocol: Document 08/06/23 11:51 AG (Rec: 08/06/23 11:51 AG [id number]) Nutrition Malnutrition Evidence of Malnutrition Exists Yes Malnutrition (severe): Chronic Evidenced By Suboptimal Energy Intake ( Severe),Weight Loss (Severe) Clinical Problem Chronic Disease or Condition Related Malnutrition Etiology severe, chronic malnutrition related to inadequate energy intake Signs/Symptoms as evidenced by unintentional 14% wt loss x 2 months, estimated PO intake meeting < 75% of estimated energy needs x 2 months Status Active Problem Recommendation Dietitian Recommendations/Changes will adjust diet to CHO controlled given evidence of malnutrition; will add 120mL glucerna 4x/day w/ medpass for additional nutrition if consumed Lab / Micro Data 08/07/23 05:44 08/08/23 09:05 Labs: Laboratory Results - last 24 hr 08/08/23 07:55: POC Glucose 191 H 08/08/23 09:05: Sodium 140, Potassium 3.3 L, Chloride 111 H, Carbon Dioxide 24.0, Anion Gap 5, BUN 12, Creatinine 0.74, Estim Creat Clear Calc 43.82, Est GFR (MDRD) Af Amer 98, Est GFR (MDRD) Non-Af 81, BUN/Creatinine Ratio 16.2, Glucose 128 H, Calcium 8.6 08/08/23 11:33: POC Glucose 171 H 08/08/23 16:18: POC Glucose 325 H 08/08/23 16:52: POC Glucose 290 H 08/08/23 22:59: POC Glucose 270 H Micro: Microbiology 08/05/23 17:53 Blood Culture (Wb) - Anticubital Left Blood Culture - Final Escherichia coli Imaging Radiology Impression Echocardiogram 08/07/23 14:38 Interpretation Summary The estimated ejection fraction is 60-65 %. No evidence for diastolic dysfunction. Trivial mitral valve insufficiency. Ordering Physician: Baldev Gaxiola Performed By: Chalo Atkins RCS Renal Ultrasound 08/08/23 06:00 IMPRESSION: Mild degree of right hydronephrosis. 1.8 cm x 1.5 cm x 1.9 cm complex cyst in the upper lateral aspect of the right kidney as described. Correlation with a CT scan is recommended. Left renal cyst. There are 2 tiny nonobstructive left intrarenal calculi. Electronically Signed: Colt Martinez MD at 12:01 EST , Abdomen/Pelvis CT 08/08/23 12:36 IMPRESSION: 5.0 mm calculi within the midportion of the right ureter causing mild degree of right hydronephrosis. Nonobstructive right intrarenal calculus. Sigmoid diverticulosis. Small bilateral pleural effusions with the bibasilar atelectasis and/or infiltration. Electronically Signed: Colt Martinez MD at 13:48 EST ,
[2023-08-09] MEDS: Insulin Lispro 100 UNIT/ML INSULN.PEN SC ×4 (08:26→20:55)
[2023-08-09] MEDS: Cefepime HCl 1 GM in 0.9% Normal Saline (50mL MB+) 50 ML IV ×2 (08:26→21:04)
--- NOTE | 2023-08-09 08:27 | NURSING ---
Wedding band given to .
[2023-08-09 11:12] LABS: Bedside Glucose 216 mg/dL (74-106)
--- NOTE | 2023-08-09 12:07 | PCM.OPRPT ---
Report of Operation Date of Procedure: 08/09/23 Pre-Operative Diagnosis: possible right ureter stone Post-Operative Diagnosis: same Surgery/Procedure Performed:: cystoscopy and right stent placement Description of Surgical Findings:: Patient was taken back to the operating room after induction of general anesthesia, the patient was placed in dorsolithotomy position. The urethra and genitals were prepped and draped in usual sterile fashion. Using a 21 [place] rigid cystourethroscope the entire length of the urethra was normal then went into the bladder. Identified the trigone the left and right ureteral orifice. I then cannulated the right ureteral orifice and advanced a wire up into the kidney. I then backloaded a 5 [place] open ended catheter over the wire and injected contrast to delineate the anatomy. After the retrograde was performed I then used fluoroscopic images and guidance to advanced a wire up into the kidney and over the 0.038 glidewire I advanced a 6 [place] by 26 cm double pigtail stent. I then pulled the 0.038 Glidewire off and the stent coiled in the kidney bladder good position. The bladder was then drained. We confirmed the position of the stent by fluoroscopy. Patient anesthetic was reversed and was taken back to the PACU in good condition. Surgeon: Roshan Simon Type of Anesthesia: General Drains: stent 6 x 24 cm Admit VTE Documentation VTE Present on Admission: No VTE Mechan Device Prophylaxis: SCD's VTE Pharm Prophylaxis ordered?: No
--- NOTE | 2023-08-09 12:10 | CT_ITS ---
STUDY: CT ABDOMEN AND PELVIS WITH CONTRAST REASON FOR EXAM: Female, 78 years old. Right renal mass?. Hypoglycemia. RADIATION DOSAGE (If Supplied By Facility): CTDIvol = ( 11.89 ) mGy, DLP = ( 329.04 ) mGycm TECHNIQUE: Transaxial images were obtained from the dome of the diaphragm to the symphysis pubis without oral contrast. IV 100mL Isovue-300 was administered. Sagittal and coronal images were reconstructed. Individualized dose optimization techniques were used for this CT. COMPARISON: Comparison is made with prior study if every 2023. FINDINGS: Stable small bilateral pleural effusions with bibasilar atelectasis more prominent at the right lung base. The visualized portions of the heart are within normal limits. Hepatomegaly. Mild degree of central intrahepatic biliary ducts. There are surgical clips in the gallbladder fossa consistent with a prior cholecystectomy. Normal spleen. Normal pancreas. Normal bilateral adrenal glands. There is a 1.8 cm x 1.7 cm simple cyst in the upper lateral aspect of the right kidney. There is a 2.4 cm x 2.1 cm complex cyst in the lateral midportion of the right kidney. This is not a simple cyst. Correlation with ultrasound is recommended for further evaluation. A right-sided double-J stent catheter seen with the proximal tip in the right renal pelvis and the distal tip is in the right-sided the bladder. There is a 1.6 cm hypodense nodule in the superior aspect of the left kidney. This may represent a small cyst. 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 There is a large hiatal hernia composed mostly of the fundus of the stomach. Normal small intestine. There are multiple colonic diverticula consistent with diverticulosis. The appendix is visualized and appears normal. There is diffuse atherosclerotic calcification of the abdominal aorta, without a demonstrated aneurysm. Normal inferior vena cava. Normal retroperitoneum. Normal urinary bladder. There is absence of the uterus consistent with a prior hysterectomy. Normal abdominal wall. There are diffuse degenerative changes of the visualized lumbar spine. Dextroscoliosis. CT/Abdomen/Pelvis W IV Cont ONLY IMPRESSION: Small bilateral pleural effusions with bibasilar atelectasis worse on the right side. Status post right double J stent catheter placement. 2.4 cm x 2.1 cm complex cyst in the lateral midportion of the right kidney. Correlation with ultrasound is recommended. Electronically Signed: Colt Martinez MD at 13:45 EST ,
[2023-08-09 12:11] LABS: Bedside Glucose 236 mg/dL (74-106)
--- NOTE | 2023-08-09 12:18 | PCM.PN.HOSP ---
Reason for Visit Reason for Visit: Diagnoses Sepsis, unspecified organism (08/05/23) Calculus of ureter (08/05/23) Urinary tract infection, site not specified (08/05/23) Hyperglycemia, unspecified (08/05/23) Bacteremia (08/05/23) Other specified abnormal findings of blood chemistry (08/05/23) Subjective Subjective No acute events overnight. Patient seen at bedside this morning. Patient had been seen by urology earlier this morning and was notified of the plan to take her for cystoscopy later in the morning for right ureteral stent placement. On my interview, patient was sitting up comfortably in bed, no acute distress. She was slightly anxious for the procedure but otherwise was feeling well. Denied any acute pain or discomfort. No other acute concerns this time. Objective Data Objective Data Vital Signs: Vital Signs Temp Pulse Resp BP Pulse Ox O2 Del Method O2 Flow Rate 99.4 F H 89 16 113/58 L 96 Room Air 2 08/09/23 12:12 08/09/23 12:15 08/09/23 12:15 08/09/23 12:15 08/09/23 12:15 08/09/23 12:15 08/07/23 07:52 FiO2 1.5 08/05/23 18:43 Oxygen Flow Rate (L/min) 2 Oxygen Delivery Method Room Air Weight: 46.4 kg Body Mass Index (BMI) 18.7 Intake & Output: Intake and Output for Last 24 Hours 08/07/23 08/08/23 08/09/23 23:59 23:59 23:59 Intake Total 1900 / 1900 900 / 900 50 / 50 Output Total 1200 / 1600 1150 / 1150 550 / 550 Balance 700 / 300 -250 / -250 -500 / -500 Medical Nutrition Assessment Dietitian: Malnutrition Criteria Met Start: 08/06/23 11:51 Freq: Status: Active Protocol: Document 08/06/23 11:51 AG (Rec: 08/06/23 11:51 AG [id number]) Nutrition Malnutrition Evidence of Malnutrition Exists Yes Malnutrition (severe): Chronic Evidenced By Suboptimal Energy Intake ( Severe),Weight Loss (Severe) Clinical Problem Chronic Disease or Condition Related Malnutrition Etiology severe, chronic malnutrition related to inadequate energy intake Signs/Symptoms as evidenced by unintentional 14% wt loss x 2 months, estimated PO intake meeting < 75% of estimated energy needs x 2 months Status Active Problem Recommendation Dietitian Recommendations/Changes will adjust diet to CHO controlled given evidence of malnutrition; will add 120mL glucerna 4x/day w/ medpass for additional nutrition if consumed Lab / Micro Data 08/07/23 05:44 08/08/23 09:05 Labs: Laboratory Results - last 24 hr 08/08/23 16:18: POC Glucose 325 H 08/08/23 16:52: POC Glucose 290 H 08/08/23 22:59: POC Glucose 270 H 08/09/23 08:16: POC Glucose 216 H 08/09/23 11:03: POC Glucose 236 H Micro: Microbiology 08/05/23 17:53 Blood Culture (Wb) - Anticubital Left Blood Culture - Final Escherichia coli 08/05/23 19:29 Urine Catheter - Catheter Urine Culture - Final Escherichia coli 08/05/23 18:02 Blood Culture (Wb) - Anticubital Right Blood Culture - Preliminary Gram negative yoseph 08/05/23 18:05 Mucosa - Nose SARS-CoV-2, Influenza & RSV (PCR) - Final Radiography Diagnostic Testing: Radiology Impression Echocardiogram 08/07/23 14:38 Interpretation Summary The estimated ejection fraction is 60-65 %. No evidence for diastolic dysfunction. Trivial mitral valve insufficiency. Ordering Physician: Baldev Gaxiola Performed By: Chalo Atkins RCS Abdomen/Pelvis CT 08/08/23 12:36 IMPRESSION: 5.0 mm calculi within the midportion of the right ureter causing mild degree of right hydronephrosis. Nonobstructive right intrarenal calculus. Sigmoid diverticulosis. Small bilateral pleural effusions with the bibasilar atelectasis and/or infiltration. Electronically Signed: Colt Martinez MD at 13:48 EST , Physical Exam Const alert and no apparent distress Constitutional Narrative: Pleasant elderly female, thin appearing, sitting comfortably in bed, conversing normally, no acute distress. General Appearance: cooperative and comfortable HEENT normocephalic, head/scalp atraumatic, hearing grossly normal bilaterally, nasal mucous membranes and turbinates normal and moist oral mucous membranes Eyes PERRL, EOMs intact bilaterally and conjunctivae normal Neck full ROM, no lymphadenopathy and supple Lymph Lymphatic: no lymphadenopathy noted Chest inspection of chest normal Resp normal respiratory effort, normal air movement, no use of accessory muscles and clear to auscultation bilaterally Cardio regular rate, regular rhythm, no murmurs and peripheral pulses 2+ throughout GI normal to inspection, nondistended, normoactive bowel sounds, soft to palpation, non-tender and non-distended no CVA tenderness Bladder / Kidney Exam: No catheter in place and bladder normal to palpation Back/Spine normal ROM Extremity normal to inspection, full ROM and no pedal edema Skin no rashes or lesions noted Neuro no focal motor deficits and no sensory deficits noted Speech: speech normal Psych mental status grossly normal Assessment & Plan Assessment/Plan (1) Elevated troponin: (2) UTI (urinary tract infection): (3) Sepsis: (4) Hyperglycemia: (5) Gram-negative bacteremia: PLAN: Plan Patient is a 78-year-old female who presented to [facility] ED on 08/05/2023 with fever/chills, generalized weakness and reported hyperglycemia at home. 1. Sepsis without shock secondary to UTI; Gram-negative bacteremia; Right-sided hydronephrosis with nephrolithiasis Presented with fever to 102.2F, tachycardia, elevated respiratory rate, leukocytosis, mild GWYN in setting of presumed UTI. UA showed positive nitrites, 25 leukocyte esterase, 1+ bacteria. S/p 2 L of IV fluids on admission with improvement in vital signs. Urine culture and blood cultures +2/2 for E. coli. Renal/bladder ultrasound showed mild degree of right hydronephrosis, renal cyst with recommendation for CT scan for correlation. CT abdomen pelvis without contrast showed 5.0 mm calculi within midportion of right ureter causing mild degree of right hydronephrosis. ? Urology following. S/p cystoscopy with right ureteral stent placement on 08/09. No perioperative complications. Continue IV cefepime for now, will discuss with urology on antibiotic course length on discharge. 2. Type 2 diabetes mellitus with severe hyperglycemia concerning for HHS, improved ? Glucose 956 on admit. pH 7.39, bicarb 23, no anion gap, no evidence of DKA. A1c 12.4%. Home regimen of glimepiride 2 mg daily, metformin 750 mg daily. Continue Lantus 15 units at night, Humalog 10 units with meals plus sliding scale insulin while inpatient, adjust as needed. Patient has been resistant to starting insulin, may need to discharge patient on oral medications with close outpatient follow-up to discuss starting an insulin regimen. 3. Pseudohyponatremia, resolved ? Sodium 129 on admit, corrected sodium 143 in setting of hyperglycemia. Sodium improved with IV fluids and improvement in blood glucose. Resolved. 4. Elevated troponin ? Troponin 153 on admit, worsened to 1192 on 08/06 but rechecks after that were 1034 and 835. No EKG changes noted. No chest pain reported by patient. Suspect largely due to severe volume depletion from sepsis with hyperglycemia as noted above. TTE 08/08 showed EF 60 to 65%, no evidence of diastolic dysfunction, no regional wall motion abnormalities noted, no significant valvular disease. No need for further workup at this time. 5. Mild debility ? PT/OT/case management following. Planning for either home with home health care versus home with outpatient physical therapy on discharge. Chronic medical conditions: ? Hypertension: Holding home losartan, likely okay to resume on discharge ? Hyperlipidemia: Continue home statin. ? Current smoker: Nicotine replacement therapy offered as needed. Encouraged cessation. DVT prophylaxis: Lovenox CODE STATUS: DNR CCA, DNI Expected disposition: Home, 1 to 2 days Total clinical time spent by myself addressing the patient's medical issues, reviewing all the data, and collaborating with patient's care team: 35 minutes. Charges/Coding Visit Charges Inpatient E&M: 89186 Subs Hosp L2
[2023-08-09 12:36] LABS: Bedside Glucose 246 mg/dL (74-106)
--- NOTE | 2023-08-09 14:39 | CHAPLAIN ---
Type of Pastoral Visit ___ Initial Visit _x__ Follow-up Visit ___ On-call Visit ___ General Patient Visit ___ Spiritual Assessment ___ Family Conference ___ Bereavement ___ Rapid Response ___ Code Blue ___ Other (describe below) Pastoral Care Referral From _x__ Patient ___ Family ___ Nurse ___ Physician ___ Vice President Of Instruction ___ Medical Chemist ___ Other (describe below) Sacrament/Intervention _x__ Active listening ___ Anointing ___ Denominational ___ Bereavement ___ Communion ___ Alfreda exploration ___ _x__ Life review ___ Prayer ___ Reconciliation ___ Sacrament of Sick _x__ Supportive presence ___ Wedding ___ Other (describe below) Pastoral Comments follow up to patient whose daughter is dying; offer of presence and support; pt gives updates and how she is coping through her own illness; pt welcomed time to talk and have verbal expression of support in her time of concern
[2023-08-09] MEDS: Insulin Lispro 100 UNIT/ML INSULN.PEN 10 UNIT SC (16:30)
[2023-08-09 16:59] LABS: Bedside Glucose 228 mg/dL (74-106)
[2023-08-09] MEDS: Insulin Glargine-YFGN 100 UNIT/ML Pen 15 UNIT SC (20:56)
[2023-08-09] MEDS: 0.9% Saline Lock 10 ML Syringe IV (21:04)
[2023-08-09] MEDS: Atorvastatin Calcium 20 MG Tablet PO (21:04)
[2023-08-09 21:17] LABS: Bedside Glucose 325 mg/dL (74-106)
[2023-08-10 03:00] VITALS: BP 117/65; PULSE 87; RESP 16; TEMP 36.3; O2SAT 97
[2023-08-10 07:53] LABS: Hematocrit 31.7 % (37-47); Hemoglobin 10.6 g/dL (12.0-15.0); Mean Corp Hgb Conc 33.4 g/dL (32-36); Mean Corpuscular Hgb 29.4 pg (27.0-32.0); Mean Corpuscular Volume 87.8 fL (81-99); Mean Platelet Vol. 9.3 fl (6.2-12.0); Platelet Count 271 K/mm3 (150-450); RBC Distribution Width CV 12.9 % (11.6-14.6); RBC Distribution Width SD 41.5 fl (35.1-43.9); Red Blood Count 3.61 M/mm3 (4.2-5.4); White Blood Count 13.6 K/mm3 (4.4-11.0)
[2023-08-10 08:01] VITALS: BP 124/45; PULSE 78; RESP 14; TEMP 36.8; O2SAT 97
--- NOTE | 2023-08-10 08:03 | PCM.CONS.B ---
Consult Date of Consult: 08/10/23 Reason for Consult 78-year-old female status post stent placement on the right for infection with a stone. She looks much better this morning I think once she is discharged she needs a follow-up in my office for an appointment I will have my office call her to get her set up for outpatient surgery to laser the stones once the infection is cleared she will need a preop appointment call me with questions
[2023-08-10 08:59] LABS: Bedside Glucose 149 mg/dL (74-106)
[2023-08-10 09:11] LABS: Anion Gap 8 (5-15); BUN 12 mg/dL (7-18); BUN/Creat Ratio 16.3 RATIO (10-20); Calcium,Total 8.4 mg/dL (8.5-10.1); Chloride 108 mmol/L (98-107); Creatinine, Serum 0.74 mg/dL (0.55-1.02); EST Glomerular Filtration Rate 82 mL/min (>60); Est Glom Filt Rate - Afr Amer 99 mL/min (>60); Estimated Creatinine Clearance 43.82 ml/min; Glucose 163 mg/dL (74-106); Potassium 3.6 mmol/L (3.5-5.1); Sodium Level 140 mmol/L (136-145)
[2023-08-10] MEDS: Cefepime HCl 1 GM in 0.9% Normal Saline (50mL MB+) 50 ML IV (10:01)
--- NOTE | 2023-08-10 10:52 | DCINST_ITS ---
Discharge Instructions Diet Discharge Diet: Low fat / Low cholesterol and Carb Control Diet Activity Discharge Activity: Return to Normal Activity Dressing / Incision Call your doctor if you observe: Fever of 101 or Higher, Shortness of breath, Dizziness, Fainting spells, Swelling in the ankles, Chest pain and Increased palpitations (irregular heartbeat) Follow Up Care Test Results: Test results from this visit will be discussed in further detail at your follow- up appointment, if applicable. Discharge Plan Admission Admit Date/Time: 08/05/23 20:27 Attending Provider: Hesham Solomon Primary Care Provider: Mauro Guallpa NP Consulting Providers: Art Alcaraz; Roshan Simon; Baldev Gaxiola Discharge Orders/Prescriptions Prescriptions: New cefdinir 300 mg capsule 300 mg PO BID 7 Days Qty: 14 0RF Continued PreserVision AREDS-2 250-90-40-1 mg capsule 1 tab PO BID simvastatin 40 MG tablet 40 mg PO QHS glimepiride 2 MG tablet 2 mg PO DAILY cholecalciferol (vitamin D3) 1,250 mcg (50,000 unit) capsule 1,250 mcg PO .MONTHLY Patient Comments: TAKE 1 CAPSULE BY MOUTH EVERY MONTH FOR 90 DAYS losartan 25 mg tablet 25 mg PO DAILY Patient Comments: TAKE 1 TABLET BY MOUTH EVERY DAY metformin 750 mg tablet extended release 24 hr 750 mg PO DAILY Patient Comments: TAKE 1 TABLET BY MOUTH EVERY DAY Referrals / Follow Up: Mauro Guallpa NP, RISK MANAGER-C [Primary Care Provider] - Within 1 Week Roshan Simon MD [Med Staff - Active Staff] - Within 2 Weeks Disposition Disposition (needs filled in before D/C Order can be placed): Home, Self Care
[2023-08-10 11:00] VITALS: BP 121/49; PULSE 89; RESP 14; TEMP 36.7; O2SAT 99
--- NOTE | 2023-08-10 11:34 | PHA.DC.MC.R ---
Pharmacy [facility] has performed discharge medication reconciliation and counseling for this patient. 1. CEFDINIR 300MG PO BID X 7 DAYS The patient's discharge medication list was reviewed for discrepancies and discrepancies were resolved. The patient was counseled on the following discharge medications and changes in medications for homegoing were reviewed. The Reason for Use, instructions for use, and potential side effects were reviewed for all new medications. The patient's questions regarding all of their medications were answered. The patient was able to verbally demonstrate an understanding of their discharge medications. Patient counseled by pharmacy technician infusion, Marc. Medications at Discharge Home Medications glimepiride 2 mg tablet 2 mg PO DAILY dm 09/13/19 simvastatin 40 mg tablet 40 mg PO QHS cholesterol 09/13/19 vit C 250 mg-vit E 90 mg-zinc 40 mg-copper 1 [id number] capsule (PreserVision AREDS-2) 1 tab PO BID 01/13/21 cholecalciferol (vitamin D3) 1,250 mcg (50,000 unit) capsule 1,250 mcg PO .MONTHLY supplement 08/05/23 losartan 25 mg tablet 25 mg PO DAILY bp 08/05/23 metformin 750 mg tablet,extended release 24 hr 750 mg PO DAILY dm 08/05/23 cefdinir 300 mg capsule 300 mg PO BID 7 days #14 caps 08/10/23
--- NOTE | 2023-08-10 11:37 | CASEMGMT ---
Patient has order for discharge. RN CM in to discuss needs at discharge. Patient and deny need for HHC. Patient states she would like a walker at discharge and prefers [employer]. RN CM received script and sent to [facility]. Patient and had no further questions or concerns.
[2023-08-10] MEDS: Insulin Lispro 100 UNIT/ML INSULN.PEN 10 UNIT SC (12:17)
[2023-08-10] MEDS: Insulin Lispro 100 UNIT/ML INSULN.PEN SC (12:17)
[2023-08-10 12:29] VITALS: BP 121/49; PULSE 89; RESP 14; TEMP 36.7; O2SAT 99
[2023-08-10 12:36] LABS: Bedside Glucose 333 mg/dL (74-106)
--- NOTE | 2023-08-10 18:20 | DS.PCM_ITS ---
Providers Date of Admission: 08/05/23 Primary Care Physician: Mauro Guallpa, GJ-C Consultations 08/08/23 17:10 Consult: Urology Routine Consulting Provider: Roshan Simon Reason for Consult: UTI w/ mild right hydro, right 5 mm stone EMERGENT Consult: No MD Notified: Yes Date Notified: 08/08/23 Time Notified: 17:10 Method of Notification: Answering Service Reason For Visit: HYPERGLYCEMIA, POSSIBLE UTI Diagnosis Discharge Diagnosis (1) Elevated troponin: Status: Acute Code(s): R79.89 - Other specified abnormal findings of blood chemistry (2) UTI (urinary tract infection): Status: Acute Code(s): N39.0 - Urinary tract infection, site not specified (3) Sepsis: Status: Acute Code(s): A41.9 - Sepsis, unspecified organism (4) Hyperglycemia: Status: Acute Code(s): R73.9 - Hyperglycemia, unspecified (5) Gram-negative bacteremia: Status: Acute Code(s): R78.81 - Bacteremia Medications at Discharge Home Medications glimepiride 2 mg tablet 2 mg PO DAILY dm 09/13/19 simvastatin 40 mg tablet 40 mg PO QHS cholesterol 09/13/19 vit C 250 mg-vit E 90 mg-zinc 40 mg-copper 1 [id number] capsule (PreserVision AREDS-2) 1 tab PO BID 01/13/21 cholecalciferol (vitamin D3) 1,250 mcg (50,000 unit) capsule 1,250 mcg PO .MONTHLY supplement 08/05/23 losartan 25 mg tablet 25 mg PO DAILY bp 08/05/23 metformin 750 mg tablet,extended release 24 hr 750 mg PO DAILY dm 08/05/23 cefdinir 300 mg capsule 300 mg PO BID 7 days #14 caps 08/10/23 Hospital Course Operations None Procedures - (Cystoscopy with right ureteral stent) Summary of Care Provided Minutes Spent on Discharge: 38 Hospital Course: Per HPI: VIKY WOLF, is a 78 F came to ED as she was not feeling well with generalized weakness, hyperglycemia has blood sugar was reading high more than 600 and she was also confused in the evening as per the . She was brought to ED by EMS for fever, temperature 102.2 ?F. Patient denies subjective fever chills/she was unaware of that. Denies burning micturition but has increased urine frequency. Patient states she is very tired and fatigued because her daughter has Down syndrome and is in extended-care facility and she is very sick. 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 She was tearful while telling her story. In ED, she was found tachycardic heart rate 1 2500, tachypneic 34/min. No hypoxia. She denies cough cold, increased shortness of breath more than her normal as she has COPD and chronic smoker. She also had COVID couple weeks ago and she recovered. Hospital Course: 1. Sepsis without shock secondary to E. coli UTI and bacteremia with right- sided hydronephrosis status post cystoscopy on 08/09/2023 with right ureteral stent placement?78-year-old female presented to the hospital with generalized weakness and hyperglycemia. She was found to be septic and started on broad- spectrum antibiotics. Cultures came back ultimately with E. coli both in her urine and in her blood. She will complete another 7 days of p.o. antibiotics on discharge with outpatient follow-up. I did discuss with her the plan for discharge today she expressed understanding the risk benefits of going home and would like to go home today. Unfortunately discharge was complicated by the news that her daughter who was currently on hospice with Alzheimer's as she has a history of Down syndrome, had this morning. I do recommend outpatient follow-up with her PCP as well as with urology secondary to her ureteral stent. 2. Type 2 diabetes?her blood sugar was significantly elevated this is likely secondary to her infection. Her glucose did improve as her infection improved and she was discharged back on her home metformin and she states that she does not take glimepiride. I do recommend outpatient monitoring for this as well and the potential adjustment with insulin if necessary. 3. Elevated troponin?this was due to demand ischemia secondary to sepsis continue with outpatient monitoring 4. Hypertension, hyperlipidemia are chronic medical conditions which complicate her care. Her home medications were continued where appropriate Physical Exam Narrative General: Alert, Oriented x3, Cooperative, No apparent distress HEENT: Atraumatic, PERRLA, EOMI, Normocephalic Oral: Moist Mucosa Neck: Supple, No JVD Lungs: Diminished, Normal air movement, No rhonchi, No wheeze, No rales Cardiovascular: Regular rate, Regular Rhythm, Normal S1, Normal S2, No murmurs Abdomen: Soft, Non Tender, Non-Distended, No Hepato-splenomegaly Extremities: No edema, Capillary Refill Less than 3 Seconds Skin: No rashes, No breakdown Musculoskeletal: No Tenderness to Palpation of Joints or Extremities Neurological: No focal neurological deficits, Motor Exam 5/5 strength throughout, Sensory exam intact to light touch and pain Psych/Mental Status: Normal Affect, Appropriate Weight / BMI Weight Weight: 102 lb 4.712 oz Body Mass Index (BMI) 18.7 ABG / Lab / Microbiology Data 08/10/23 07:10 08/10/23 07:10 Laboratory: Laboratory Results - last 24 hr 08/09/23 20:53: POC Glucose 325 H 08/10/23 07:10: WBC 13.6 H, RBC 3.61 L, Hgb 10.6 L, Hct 31.7 L, MCV 87.8, MCH 29.4, MCHC 33.4, RDW Std Deviation 41.5, RDW Coeff of Kuldip 12.9, Plt Count 271, MPV 9.3, Sodium 140, Potassium 3.6, Chloride 108 H, Carbon Dioxide 24.0, Anion Gap 8, BUN 12, Creatinine 0.74, Estim Creat Clear Calc 43.82, Est GFR (MDRD) Af Amer 99, Est GFR (MDRD) Non-Af 82, BUN/Creatinine Ratio 16.3, Glucose 163 H, Calcium 8.4 L 08/10/23 07:57: POC Glucose 149 H 08/10/23 12:14: POC Glucose 333 H Microbiology: Microbiology 08/05/23 17:53 Blood Culture (Wb) - Anticubital Left Blood Culture - Final Escherichia coli 08/05/23 19:29 Urine Catheter - Catheter Urine Culture - Final Escherichia coli 08/05/23 18:02 Blood Culture (Wb) - Anticubital Right Blood Culture - Preliminary Gram negative yoseph 08/05/23 18:05 Mucosa - Nose SARS-CoV-2, Influenza & RSV (PCR) - Final D/C Instructions Discharge Diet: Low fat / Low cholesterol and Carb Control Diet Call your doctor if you observe: Fever of 101 or Higher, Shortness of breath, Dizziness, Fainting spells, Swelling in the ankles, Chest pain and Increased palpitations (irregular heartbeat) Meaningful Use Info Meaningful Use Diagnoses (Choose all that apply): None applicable Discharge Plan Admission Admit Date/Time: 08/05/23 20:27 Attending Provider: Hesham Solomon Primary Care Provider: Mauro Guallpa NP Consulting Providers: Art Alcaraz; Roshan Simon; Baldev Gaxiola Discharge Orders/Prescriptions Prescriptions: New cefdinir 300 mg capsule 300 mg PO BID 7 Days Qty: 14 0RF Continued PreserVision AREDS-2 250-90-40-1 mg capsule 1 tab PO BID simvastatin 40 MG tablet 40 mg PO QHS glimepiride 2 MG tablet 2 mg PO DAILY cholecalciferol (vitamin D3) 1,250 mcg (50,000 unit) capsule 1,250 mcg PO .MONTHLY Patient Comments: TAKE 1 CAPSULE BY MOUTH EVERY MONTH FOR 90 DAYS losartan 25 mg tablet 25 mg PO DAILY Patient Comments: TAKE 1 TABLET BY MOUTH EVERY DAY metformin 750 mg tablet extended release 24 hr 750 mg PO DAILY Patient Comments: TAKE 1 TABLET BY MOUTH EVERY DAY Referrals / Follow Up: Roshan Simon MD [Med Staff - Active Staff] - Within 2 Weeks Mauro Guallpa NP, SALES TRAINEE-C [Primary Care Provider] - Within 1 Week Disposition Disposition (needs filled in before D/C Order can be placed): Home, Self Care Charges/Coding Visit Charges Inpatient E&M: 21313 Disch Hosp >30min
== END 2023-08-10 13:07 | disposition home or self-care (01) | DRG 853 ==
LOC: ED 20:34 → PCU 21:10
PROVIDERS: Hospitalist; Urology; Admitting Provider Internal Medicine; Emergency Provider Emergency Medicine; PCP Nurse Practitioner Family; Visit Provider Family Medicine
PROC: 0T768DZ Dilation of Right Ureter with Intraluminal Device, Via Natural or Artificial Opening Endoscopic (ICD-10-PCS; CPT 52332; principal; 2023-08-09 07:50)
DX: A41.50 Gram-negative sepsis, unspecified (principal); E43 Unspecified severe protein-calorie malnutrition; N17.9 Acute kidney failure, unspecified; I24.89 Other forms of acute ischemic heart disease; N13.6 Pyonephrosis; Z68.1 Body mass index [BMI] 19.9 or less, adult; E11.65 Type 2 diabetes mellitus with hyperglycemia; E78.5 Hyperlipidemia, unspecified; B96.20 Unspecified Escherichia coli [E. coli] as the cause of diseases classified elsewhere; J44.9 Chronic obstructive pulmonary disease, unspecified; Z79.4 Long term (current) use of insulin; I10 Essential (primary) hypertension; F17.210 Nicotine dependence, cigarettes, uncomplicated; Z51.5 Encounter for palliative care; Z66 Do not resuscitate; Z86.16 Personal history of COVID-19; N28.1 Cyst of kidney, acquired; R77.8 Other specified abnormalities of plasma proteins; Q90.9 Down syndrome, unspecified
CPT/HCPCS: 36415; 71045; 74176; 74177; 76000; 76770; 80048; 80076; 81001; 82009; 82803; 82962; 83036; 83735; 84100; 84484; 85025; 85027; 87040; 87077; 87086; 87088; 87186; 87631; 93005; 93306; 94668; 97110; 97116; 97162; 97165; 97530; 97535; 97802; 97803; 99285; J7030; J7040; Q9967; A4216; C1769; C2617

== ENCOUNTER 2023-08-21 05:04 | Emergency (ER) | payer MEDICARE, OTHER, SELFPAY ==
[2023-08-21 05:06] VITALS: BP 162/60; PULSE 104; RESP 16; TEMP 36.8; O2SAT 97; BMI 18.0
--- NOTE | 2023-08-21 05:20 | EDS_ITS ---
HPI History of Present Illness Chief Complaint: Hyperglycemia Informant: patient Narrative Narrative: Patient presents with high blood sugar. Patient states that she got up to urinate 2 AM. That is not that uncommon for her. It did not burn. She states she does urinate a lot and drink a lot of water. This has been going on for months including predating her recent admission. She states she almost never checks her blood sugar at home but decided to check it this morning. It was 499. She took metformin it went down to 430 range. She states she did not feel sick at all. She does not feel ill in any way. She is not having fevers chills. No chest pain trouble breathing. She has frequency but no dysuria. Patient states that she is just on metformin 750 mg once a day. But she took it at 2 AM. On her last visit she had not been taking her meds for some time. It is also listed that she is supposed to be on glimepiride. But she states that that has not been refilled for a while so she does not have it. [facility] Medical History Anemia Bowel obstruction COPD (chronic obstructive pulmonary disease) Diabetes Encounter for screening for malignant neoplasm of lung in current smoker with 30 pack year history or greater Hyperlipidemia Osteoporosis Smoker Tobacco use disorder, continuous Vision loss of left eye Vision loss of right eye Vitamin D deficiency Home Medications glimepiride 2 mg tablet 2 mg PO DAILY dm 09/13/19 [History Last Taken Unknown] simvastatin 40 mg tablet 40 mg PO QHS cholesterol 09/13/19 [History Last Taken Unknown] vit C 250 mg-vit E 90 mg-zinc 40 mg-copper 1 [id number] capsule (PreserVision AREDS-2) 1 tab PO BID 01/13/21 [History Last Taken Unknown] cholecalciferol (vitamin D3) 1,250 mcg (50,000 unit) capsule 1,250 mcg PO .MONTHLY supplement 08/05/23 [History Last Taken Unknown] losartan 25 mg tablet 25 mg PO DAILY bp 08/05/23 [History Last Taken Unknown] metformin 750 mg tablet,extended release 24 hr 750 mg PO DAILY dm 08/05/23 [History Last Taken Unknown] cefdinir 300 mg capsule 300 mg PO BID 7 days #14 caps 08/10/23 [Rx Last Taken Unknown] metformin 1,000 mg tablet 1,000 mg PO BID #60 tabs 08/21/23 [Rx Last Taken Unknown] Allergy/AdvReac Type Severity Reaction Status Date / Time No Known Allergies Allergy Verified 08/05/23 17:58 Family History Father CAD (coronary artery disease) Myocardial infarction Osteoarthritis Brother Multiple myeloma older younger brother Brain aneurysm younger brother Surgical History History of cholecystectomy History of hysterectomy History of intestinal surgery History of removal of ovarian cyst Social History Smoking Status: Current every day smoker tobacco type: cigarettes Tobacco: How many years used: 25 Electronic Cigarette Use: not used second hand exposure: Yes quit status: considering quitting counseling given: provider counseling ROS ROS ED Constitutional Constitutional ED: Denies chills, fever(s) or subjective ENT ENT ED: Denies rhinorrhea Cardiovascular Cardiovascular: Denies chest pain, palpitations or racing heartbeat Respiratory/Chest Respiratory/Chest: Denies cough or dyspnea Gastrointestinal Gastrointestinal: Denies abdominal pain, diarrhea, nausea or vomiting Genitourinary Genitourinary ED: Reports urinary frequency; Denies dysuria or hematuria Musculoskeletal Musculoskeletal: Denies myalgias Integumentary Denies rash Neurologic Neurologic: Denies headache(s) Psychiatric Psychiatric: Denies anxiety Endocrine Endocrinology: Reports polydipsia and polyuria Hematologic/Lymphatic Hematologic/Lymphatic: Denies easy bleeding or easy bruising Allergic/Immunologic Allergic/Immunologic ED: Denies urticaria EXAM Physical Exam Narrative Exam Narrative: CONSTITUTIONAL: Patient is nontoxic in appearance. The patient looks comfortable. HEENT: No notable trauma. Mucous membranes surprisingly still look moist. No exudate. EYES: No conjunctival injection. No pallor. CARDIOVASCULAR: Regular rate. Regular rhythm. No notable murmur. No JVD. RESPIRATORY: No respiratory distress. Breathing is unlabored. No wheezes. GASTROINTESTINAL: Not distended. Bowel sounds are normal. No tenderness. No guarding. No rebound. GENITOURINARY: No tenderness over the bladder. No CVA tenderness felt on either side. MUSCULOSKELETAL: Atraumatic. No peripheral edema. NEUROLOGICAL: Patient is alert and appropriate. No focal deficit noted. SKIN: No noted rashes. No diaphoresis. PSYCHIATRIC: Patient is calm. Mood is appropriate. Const Vital Signs: 08/21/23 05:06 08/21/23 05:09 Temperature 98.2 F Temperature Source Oral Pulse Rate 104 H Respiratory Rate 16 Respiratory Effort Normal Respiratory Pattern Normal Blood Pressure 162/60 H Blood Pressure Mean 94 Pulse Ox 97 Oxygen Delivery Method Room Air MDM MDM MDM Narrative Medical decision making narrative: Patient's bedside blood sugar was still well over 400. She will be given fluids and some short acting lispro insulin. We will do blood work. Patient CBC shows mild elevation of her white count. She has had this elevated for a while. This is nonspecific. Patient's electrolytes showed mildly low sodium which is mostly factitious due to the elevated glucose level at 436. BUN is slightly high at 27 with a high BUN to creatinine ratio of 27.4-1. She is given IV fluids. This is likely dehydration from osmotic diuresis from hyperglycemia. Patient was given the fluids and lispro here. Recheck of her glucose level shows it has come down significantly to 341. I talked with the patient. She is feeling well. We will increase her metformin. I also spent quite a bit of time discussing foods. I found that she had a lot of bread before she had checked her sugar. She also had fruit cups. She evidently eats a lot of fruit cups. We went over her diet and most of the things that she eats have of large amount of added sugar. We discussed how to read the nutrition labels on the back of food and with especially looking at the added sugar section at the end. I printed off information from [place] [employer] terms of foods to eat and foods to avoid. She will follow- up with her physician. I did explain that she may still need an adjustment of medication, new medications, and may even need to be on insulins at some point but I think we can initiate care with improved diet and slight increase of her current medications. Lab Data Attestation: I reviewed the patient's lab results. Labs: Laboratory Results - last 24 hr 08/21/23 08/21/23 05:08 05:27 WBC 14.3 H RBC 4.01 L Hgb 12.2 Hct 36.2 L MCV 90.3 MCH 30.4 MCHC 33.7 RDW Std Deviation 44.5 H RDW Coeff of Kuldip 13.5 Plt Count 441 MPV 9.0 Immature Gran % (Auto) 0.400 Neut % (Auto) 75.7 H Lymph % (Auto) 19.1 [place] % (Auto) 4.4 Eos % (Auto) 0.0 Baso % (Auto) 0.4 Absolute Neuts (auto) 10.8 H Absolute Lymphs (auto) 2.73 Nucleated RBC % 0 Sodium 131 L Potassium 4.7 Chloride 101 Carbon Dioxide 25.0 Anion Gap 5 BUN 27 H Creatinine 0.98 Estim Creat Clear Calc 33.36 Est GFR (MDRD) Af Amer 71 Est GFR (MDRD) Non-Af 58 L BUN/Creatinine Ratio 27.4 H Glucose 436 H Calcium 9.0 POC Glucose 454 H* Discharge Plan Triage Chief Complaint: Hyperglycemia ED Provider: Fabrizio Sanz Dx/Rx/DC Orders Clinical Impression: Hyperglycemia Instructions: ED Diabetic Hyperglycemia Prescriptions: New metformin 1,000 mg tablet 1,000 mg PO BID Qty: 60 0RF No Action PreserVision AREDS-2 250-90-40-1 mg capsule 1 tab PO BID simvastatin 40 MG tablet 40 mg PO QHS glimepiride 2 MG tablet 2 mg PO DAILY cholecalciferol (vitamin D3) 1,250 mcg (50,000 unit) capsule 1,250 mcg PO .MONTHLY Patient Comments: TAKE 1 CAPSULE BY MOUTH EVERY MONTH FOR 90 DAYS losartan 25 mg tablet 25 mg PO DAILY Patient Comments: TAKE 1 TABLET BY MOUTH EVERY DAY metformin 750 mg tablet extended release 24 hr 750 mg PO DAILY Patient Comments: TAKE 1 TABLET BY MOUTH EVERY DAY cefdinir 300 mg capsule 300 mg PO BID 7 Days Qty: 14 0RF Primary Care Provider: Mauro Guallpa NP Referrals: Mauro Guallpa SUPPLIER QUALITY ENGINEERING MANAGER, SUPPLIER QUALITY ENGINEERING MANAGER-C [Primary Care Provider] - 3-5 Days Activity Restrictions/Additional Instructions: Start taking the new metformin 1000 mg twice a day. Stop your 750 mg of metformin. See your doctor within the next week. You still may need a new medication. They may restart the glimepiride that you used to be taking. Disposition Disposition: Home, Self Care
[2023-08-21 05:28] LABS: Bedside Glucose 454 mg/dL (74-106)
--- OUTSIDE RECORDS SUMMARY | 2023-08-21 05:31 | XMS RPT_ITS | CCD ---
Author Name Unknown Address [address] [place] [address] Organization [facility] Care Team Providers Care Stone Lathe Operator Name Role Phone ADELINA JACKMAN APRN, CNP Primary Care Phys ician ADELINA JACKMAN APRN, CNP Attending U davidailADELINA Mendoza APRN, CNP Primary Care U navailable ADELINA JACKMAN APRN, CNP Attending U navailvíctor Lloyd CNP, ADELINA Reyes Primary Care U navailable Medications Current Medications Medication Drug Class(es) Dates Sig (Normalized) Sig (Original) [id number] 200 actuat albuterol 0.09 mg/actuat metered dose [...] 05-09-2023 Outreach Lab ADELINA AJ APRN - [employer] [facility] Start: 11-04-2022 End: 11-09-2022 ambulatory ADELINA WAGNERPKINS STUDENT RECORDS COORDINATOR - [employer] Facility:B Start: 11-04-2022 End: 11-08-2022 Outreach Lab ADELINA AJ STUDENT RECORDS COORDINATOR - [employer] [facility] Start: 05-06-2022 End: 05-10-2022 Outreach Lab ADELINA AJ STUDENT RECORDS COORDINATOR - [employer] [facility] Start: 11-05-2021 End: 11-09-2021 Outreach Lab ADELINA WAGNERPKINS STUDENT RECORDS COORDINATOR - [employer] [facility] Start: 04-24-2021 End: 04-28-2021 Outreach Lab ADELINA WAGNERPKINS STUDENT RECORDS COORDINATOR - [employer] [facility] Procedures Date Procedure Procedure Detail Performing Clinician Start: 06-27-1997 Surgery (qualifier value) ADELINA WAGNERPKINS STUDENT RECORDS COORDINATOR - [employer] Immunizations Immunization Date Immunization Notes Care Provider Bandar edwards 03-19-2022 influenza, high dose seasonal, preservative-free ADELINA WAGNERPKINS STUDENT RECORDS COORDINATOR - [employer] [facility] Physicians [facility] Payers Date Payer Category Payer Medicare [id number] 2022 Unknown [id number] 1945 Unknown [id number] 1945 Unknown [id number] Social History Date Type Detail Facility Start: 02-09-2021 Heavy tobacco smoker (finding) [facility] Sex Assigned At Female [facility] Evaluation + Plan note Note Date & Type Note Facility Evaluation + Plan note Future Appointments Appointment Date:05/15/2021 02:00:00 PM Scheduled Provider:ADELINA AJ APRN, CNP Location:[facility] Appointment Type:PC OV Follow Up [facility] Evaluation + Plan note LaboratoryRadiology Note Date & Type Note Facility Evaluation + Plan note Future Appointments Appointment Date:05/11/2022 10:20:00 AM Scheduled Provider:ADELINA AJ APRN - PATTI Location:[facility] Appointment Type:PC OV Future Scheduled TestsMicroalbumin Level Urine 05/16/22MA Mammo Screening Bilateral w/ Adonis 11/13/21BD Bone Density DEXA Axial Skeleton 11/13/21 [facility] Evaluation + Plan note LaboratoryRadiology Note Date & Type Note Facility Evaluation + Plan note Future Appointments Appointment Date:11/11/2022 10:40:00 AM Scheduled Provider:ADELINA AJ APRN, CNP Location:[facility] Appointment Type:PC OV Follow Up Future Scheduled TestsMicroalbumin Level Urine 515/23Microalbumin Level Urine 05/16/22[place] Mammo Screening Bilateral w/ Adonis 11/13/21BD Bone Density DEXA Axial Skeleton 11/13/21 [facility] Evaluation + Plan note Laboratory Note Date & Type Note Facility Evaluation + Plan note Future Appointments Appointment Date:05/12/2023 10:40:00 AM Scheduled Provider:ADELINA AJ APRN, CNP Location:[facility] Appointment Type:PC OV Follow Up Future Scheduled TestsMicroalbumin Level Urine 5/15/23Microalbumin Level Urine 05/16/22 [facility] Hospital course Narrative Note Date & Type Note Facility Hospital course Narrative No data available for this section [facility] Hospital Discharge instructions Note Date & Type Note Facility Hospital Discharge instructions No data available for this section [facility] Progress note Note Date & Type Note Facility Progress note No data available for this section [facility] Summary Purpose Family History No Family History Records Found Advance Directives No Advanced Directives Records Found Additional Source Comments Care Team (unrecognized sect ion and content) Personnel Name: ADELINA AJ STUDENT RECORDS COORDINATOR - [employer] Address: [address] [place] [address]- Care Team Personnel Name: ADELINA AJ STUDENT RECORDS COORDINATOR - [employer] Position: P4 Advanced Technical Communication Teacher Member Role: Primary Care Physician Address: Address: [address] [place] [address] Care Team Related Persons Name: KIM WOLF Address: Home [address] [place], [place] [id number] Care Team Personnel Name: ADELINA AJ STUDENT RECORDS COORDINATOR - [employer] Position: P4 Advanced Technical Communication Teacher Member Role: Primary Care Physician Address: Address: [address] [place] [address] Care Team Related Persons Name: KIM WOLF Address: Home [address] [place], [place] [id number] [place] Care Team (unrecognized sect ion and content) Care Team Personnel Name: ADELINA AJ STUDENT RECORDS COORDINATOR - [employer] Position: P4 Advanced Practice Nurse Member Role: Primary Care Physician Address: Address: [address] [place] [address] Care Team Related Persons Name: KIM WOLF Address: Home [address] [place], [place] [id number] INFORMATION SOURCE (unrecogn ized section and content) [...] BE BASED ON THE PRIMARY CLINICAL RECORDS. [facility]. provides no warranty or guarantee of the accuracy or completeness of information in this document.
[2023-08-21] MEDS: 0.9% Normal Saline (1000mL) 1,000 ML 1000 ML IV (05:35)
[2023-08-21] MEDS: Insulin Lispro 100 UNIT/ML INSULN.PEN 10 UNIT SC (05:35)
[2023-08-21 05:40] LABS: Absolute Lymphocyte Count 2.73 X10^3/uL (0.83-4.51); Absolute Neutrophil Count 10.8 X10^3/uL (2.0-7.7); Basophil# 0.06 X10^3/uL; Basophil% 0.4 % (0-1); Hematocrit 36.2 % (37-47); Hemoglobin 12.2 g/dL (12.0-15.0); Lymphocyte # 2.73 X10^3/ul (0.83-4.51); Lymphocyte % 19.1 % (19-41); Mean Corp Hgb Conc 33.7 g/dL (32-36); Mean Corpuscular Hgb 30.4 pg (27.0-32.0); Mean Corpuscular Volume 90.3 fL (81-99); Monocyte# 0.63 X10^3/uL; Monocyte% 4.4 % (0-10); NRBC Flagged by Analyzer 0 % (0-5); Neutrophil # 10.84 X10^3/uL (2.7-7.7); Neutrophil % 75.7 % (47-70); Platelet Count 441 K/mm3 (150-450); RBC Distribution Width CV 13.5 % (11.6-14.6); RBC Distribution Width SD 44.5 fl (35.1-43.9); Red Blood Count 4.01 M/mm3 (4.2-5.4); White Blood Count 14.3 K/mm3 (4.4-11.0)
[2023-08-21 05:51] LABS: Anion Gap 5 (5-15); BUN 27 mg/dL (7-18); BUN/Creat Ratio 27.4 RATIO (10-20); Chloride 101 mmol/L (98-107); Creatinine, Serum 0.98 mg/dL (0.55-1.02); EST Glomerular Filtration Rate 58 mL/min (>60); Est Glom Filt Rate - Afr Amer 71 mL/min (>60); Estimated Creatinine Clearance 33.36 ml/min; Glucose 436 mg/dL (74-106); Potassium 4.7 mmol/L (3.5-5.1); Sodium Level 131 mmol/L (136-145)
[2023-08-21 06:23] LABS: Bacteria 0 SEEN /hpf (None Seen); Mucous, Urine 0 SEEN /hpf (<or=2+)
[2023-08-21 06:59] VITALS: BP 133/58; PULSE 83; RESP 16; TEMP 36.7; O2SAT 98
[2023-08-21 06:59] LABS: Bedside Glucose 341 mg/dL (74-106)
[2023-08-21 07:34] LABS: Color, Urine Yellow (Yellow); Glucose, Dipstick 1000 mg/dl (Normal); Ketone-Dipstick Negative (Negative); Leukocyte Esterase-Dipstick 100 /ul (Negative); Nitrite-Dipstick Negative (Negative); Occult Blood-Urine 250 /ul (Negative); Protein-Dipstick 30 mg/dl (Negative); Specific Gravity, Urine 1.005 (1.002-1.030); Urine Bilirubin Dipstick Negative (Negative); Urine Clarity Clear (Clear); Urine Urobilinogen Normal (Normal)
[2023-08-21 07:49] LABS: Red Blood Cells-Urine 10-25 SEEN /hpf (0-5); White Blood Cells 0-5 SEEN /hpf (0-5)
[2023-08-21 07:50] LABS: Squamous Epithelial Cells - UA 0-5 SEEN /hpf (5-10)
== END 2023-08-21 07:02 | disposition home or self-care (01) ==
PROVIDERS: Emergency Provider Emergency Medicine; PCP Nurse Practitioner Family; Visit Provider Emergency Medicine
DX: E11.65 Type 2 diabetes mellitus with hyperglycemia (principal); J44.9 Chronic obstructive pulmonary disease, unspecified; Z79.84 Long term (current) use of oral hypoglycemic drugs; F17.210 Nicotine dependence, cigarettes, uncomplicated; E78.5 Hyperlipidemia, unspecified; Z79.899 Other long term (current) drug therapy; Z90.49 Acquired absence of other specified parts of digestive tract; Z90.710 Acquired absence of both cervix and uterus
CPT/HCPCS: 80048; 81001; 82962; 85025; 96360; 96372; 99283; J7030

== ENCOUNTER → 2023-08-22 | Outpatient (CLI) | payer MEDICARE, OTHER, SELFPAY ==
--- NOTE | 2023-08-22 | URE_PTH ---
PATHOLOGY RESULTS PATIENT: VIKY WOLF [facility] U#:[id number] AGE/SX: 78/F ROOM: RE08/22/[address]: Dr. Roshan Simon MD : 1945 BED: DIS: 08/22/2023 SPEC #: [id number] RECD: 08/23/23 08:20 STATUS: MORE MARYLOU #: [id number] GAYATHRI: 08/22/23 00:[address]: Roshan Simon DEPT: SURGICAL PATHOLOGY RECD BY: Arianna Hoyt ENTERED: 08/23/23 08:20 SP TYPE: URETER BX OTHR DR: Mauro Guallpa, PULVERIZER MILL OPERATOR-C [facility] Tissues: Ureter, NOS Procedures: Surgery Specimen Level IV HEADER OPERATION: Right ureteroscopy, biopsy of ureteral mass, right ureteral stent placement PRE-OP DIAGNOSIS: Calculus of kidney TISSUE SUBMITTED: Right ureteral mass MICROSCOPIC DIAGNOSIS Right ureteral mass, biopsy: Papillary urothelial carcinoma, noninvasive, 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 See comment. LAYLA:leif 08/24/2023 COMMENT Lamina propria or lymph-vascular invasion is not seen. Underlying muscle is not present in the specimen. Case has been reviewed in consultation with Dr. Salmeron who concurs with the above diagnosis. IDC:AM MICROSCOPIC DESCRIPTION Slides are reviewed. GROSS DESCRIPTION Received in fixative is one container labeled with the patient's name and designated ureteral mass. The specimen consists of one irregular fragment of light orellana soft tissue that measures 0.5 x 0.5 x 0.1 cm. The specimen is totally submitted in one cassette. / LAYLA:leif 08/23/2023 TC:0 CPT: 18440
--- OUTSIDE RECORDS SUMMARY | 2023-08-22 23:55 | XMS RPT_ITS | CCD ---
Author Name Unknown Address [address] [place] [address] Organization [facility] Care Team Providers Care Environmental Education Specialist Name Role Phone ADELINA JACKMAN APRN, CNP Primary Care Phys ician ADELINA JACKMAN APRN, CNP Attending U davidailADELINA Mendoza APRN, CNP Primary Care U navailable ADELINA JACKMAN APRN, CNP Attending U navailvíctor Lloyd CNP, ADELINA Reyes Primary Care U navailable Medications Current Medications Medication Drug Class(es) Dates Sig (Normalized) Sig (Original) [id number] 200 actuat albuterol 0.09 mg/actuat metered dose [...] 05-09-2023 Outreach Lab ADELINA AJ APRN - [employer] [facility] Start: 11-04-2022 End: 11-09-2022 ambulatory ADELINA WAGNERPKINS REIMBURSEMENT CONSULTANT - [employer] Facility:B Start: 11-04-2022 End: 11-08-2022 Outreach Lab ADELINA AJ REIMBURSEMENT CONSULTANT - [employer]PER[employer] [facility] Start: 05-06-2022 End: 05-10-2022 Outreach Lab ADELINA AJ REIMBURSEMENT CONSULTANT - [employer] [facility] Start: 11-05-2021 End: 11-09-2021 Outreach Lab ADELINA WAGNERPKINS REIMBURSEMENT CONSULTANT - [employer] [facility] Start: 04-24-2021 End: 04-28-2021 Outreach Lab ADELINA WAGNERPKINS REIMBURSEMENT CONSULTANT - [employer] [facility] Procedures Date Procedure Procedure Detail Performing Clinician Start: 06-27-1997 Surgery (qualifier value) ADELINA WAGNERPKINS REIMBURSEMENT CONSULTANT - [employer] Immunizations Immunization Date Immunization Notes Care Provider Bandar edwards 03-19-2022 influenza, high dose seasonal, preservative-free ADELINA WAGNERPKINS REIMBURSEMENT CONSULTANT - [employer]PER[employer] [facility] Physicians [facility] Payers Date Payer Category Payer Medicare [id number] 2022 Unknown [id number] 1945 Unknown [id number] 1945 Unknown [id number] Social History Date Type Detail Facility Start: 02-09-2021 Heavy tobacco smoker (finding) [facility] Sex Assigned At Female [facility] Evaluation + Plan note Note Date & Type Note Facility Evaluation + Plan note Future Appointments Appointment Date:05/15/2021 02:00:00 PM Scheduled Provider:ADELINA AJ APRN, CNP Location:[facility] Appointment Type:PC OV Follow Up [facility] Evaluation + Plan note LaboratoryRadiology Note Date & Type Note Facility Evaluation + Plan note Future Appointments Appointment Date:05/11/2022 10:20:00 AM Scheduled Provider:ADELINA AJ APRN - PATTI Location:[facility] Appointment Type:PC OV Future Scheduled TestsMicroalbumin Level Urine 05/16/22MA Mammo Screening Bilateral w/ Adonis 11/13/21BD Bone Density DEXA Axial Skeleton 11/13/21 [facility] Evaluation + Plan note LaboratoryRadiology Note Date & Type Note Facility Evaluation + Plan note Future Appointments Appointment Date:11/11/2022 10:40:00 AM Scheduled Provider:ADELINA AJ APRN, CNP Location:[facility] Appointment Type:PC OV Follow Up Future Scheduled TestsMicroalbumin Level Urine 515/23Microalbumin Level Urine 05/16/22[place] Mammo Screening Bilateral w/ Adonis 11/13/21BD Bone Density DEXA Axial Skeleton 11/13/21 [facility] Evaluation + Plan note Laboratory Note Date & Type Note Facility Evaluation + Plan note Future Appointments Appointment Date:05/12/2023 10:40:00 AM Scheduled Provider:ADELINA AJ APRN, CNP Location:[facility] Appointment Type:PC OV Follow Up Future Scheduled TestsMicroalbumin Level Urine 5/15/23Microalbumin Level Urine 05/16/22 [facility] Hospital course Narrative Note Date & Type Note Facility Hospital course Narrative No data available for this section [facility] Hospital Discharge instructions Note Date & Type Note Facility Hospital Discharge instructions No data available for this section [facility] Progress note Note Date & Type Note Facility Progress note No data available for this section [facility] Summary Purpose Family History No Family History Records Found Advance Directives No Advanced Directives Records Found Additional Source Comments Care Team (unrecognized sect ion and content) Personnel Name: ADELINA AJ REIMBURSEMENT CONSULTANT - [employer]PER[employer] Address: [address] [place] [address]- Care Team Personnel Name: ADELINA AJ REIMBURSEMENT CONSULTANT - [employer] Position: P4 Advanced Egg Buyer Member Role: Primary Care Physician Address: Address: [address] [place] [address] Care Team Related Persons Name: KIM WOLF Address: [address], [place] [id number] Care Team Personnel Name: ADELINA AJ REIMBURSEMENT CONSULTANT - [employer]PER[employer] Position: P4 Advanced Egg Buyer Member Role: Primary Care Physician Address: Address: [address] [place] [address] Care Team Related Persons Name: KIM WOLF Address: Home [address] [place], [place] [id number] [place] Care Team (unrecognized sect ion and content) Care Team Personnel Name: ADELINA AJ REIMBURSEMENT CONSULTANT - [employer]PER[employer] Position: P4 Advanced Practice Nurse Member Role: Primary Care Physician Address: Address: [address] [place] [address] Care Team Related Persons Name: KIM WOLF Address: Home [address] [place], [place] [id number] INFORMATION SOURCE (unrecogn ized section and content) [...] BE BASED ON THE PRIMARY CLINICAL RECORDS. [facility] provides no warranty or guarantee of the accuracy or completeness of information in this document.
== END | disposition home or self-care (01) ==
LOC: LABSPEC 15:47
PROVIDERS: PCP Nurse Practitioner Family; Referring Provider Urology; Visit Provider Urology
DX: N28.89 Other specified disorders of kidney and ureter (principal)
CPT/HCPCS: 88305

== ENCOUNTER 2023-09-13 13:15 | Day surgery (SDC) | payer MEDICARE, OTHER, SELFPAY ==
[2023-09-13 13:43] LABS: Hematocrit 40.6 % (37-47); Mean Corpuscular Hgb 29.3 pg (27.0-32.0); Mean Corpuscular Volume 91.6 fL (81-99); Mean Platelet Vol. 8.4 fl (6.2-12.0); Platelet Count 539 K/mm3 (150-450); RBC Distribution Width CV 13.3 % (11.6-14.6); Red Blood Count 4.43 M/mm3 (4.2-5.4); White Blood Count 16.8 K/mm3 (4.4-11.0)
[2023-09-13 13:57] LABS: Hemoglobin A1c 10.4 % (3.8-5.6)
[2023-09-13 13:59] LABS: International Normalized Ratio 1.2; Prothrombin Time (Protime)PT. 14.8 SECONDS (11.7-14.9)
[2023-09-13 14:14] LABS: AST(SGOT) 14 U/L (15-37); Alanine Aminotransfer ALT/SGPT 16 U/L (13-56); Albumin, Serum 3.1 g/dL (3.2-5.0); Alkaline Phosphatase 59 U/L (45-117); Anion Gap 10 (5-15); BUN 22 mg/dL (7-18); Bilirubin, Direct 0.12 mg/dL (0.00-0.30); Calcium,Total 9.1 mg/dL (8.5-10.1); Chloride 100 mmol/L (98-107); Creatinine, Serum 0.96 mg/dL (0.55-1.02); EST Glomerular Filtration Rate 60 mL/min (>60); Est Glom Filt Rate - Afr Amer 73 mL/min (>60); Globulin 4.9 g/dL (2.2-4.2); Glucose 190 mg/dL (74-106); Potassium 4.6 mmol/L (3.5-5.1); Sodium Level 136 mmol/L (136-145)
== END 2023-09-15 14:00 | disposition home or self-care (01) ==
LOC: SDC 08-29 10:47
PROVIDERS: Anesthesiology; PCP Nurse Practitioner Family; Referring Provider Urology; Visit Provider Urology
DX: Z01.818 Encounter for other preprocedural examination (principal)
CPT/HCPCS: 36415; 80048; 80076; 83036; 85027; 85610; 85730

== ENCOUNTER 2025-03-14 01:04 | Emergency (ER) | payer MEDICARE, OTHER, SELFPAY ==
[2025-03-14 01:04] VITALS: BP 180/80; PULSE 78; RESP 20; TEMP 36.4; O2SAT 96; BMI 19.1
[2025-03-14 01:06] VITALS: BP 180/80; PULSE 80; RESP 20; TEMP 36.4; O2SAT 95
[2025-03-14 01:15] VITALS: O2SAT 94
--- NOTE | 2025-03-14 01:18 | CT_ITS ---
PROCEDURE: CTA CHEST W/WO CONTRAST 03/14/2025 REASON FOR EXAM: HEMOPTYSIS TECHNIQUE: Procedure Code: [id number] Modality: CT Procedure: CTA CHEST W/WO CONTRAST Multiplanar Sagittal and Coronal images were obtained. CONTRAST: OMNIPAQUE 350 VOLUME: 100 mL One or more dose reduction techniques were used (e.g., Automated exposure control, adjustment of the mA and/or kV according to patient size, use of iterative reconstruction technique). RADIATION DOSE SUMMARY: CTDlvol: 3.38 mGy DLP: 123 mGycm COMPARISON: CT SCAN ON 01/13/2021. FINDINGS: Unchanged moderate sliding hiatal hernia. Unchanged multiple pulmonary blebs. Unchanged 1.8 cm nodule arising from the posterior aspect of the right thyroid lobe. No tracheal narrowing or deviation is seen. Mild bilateral peribronchial interstitial thickening, probably bronchitis. Normal enhancement of the main pulmonary artery and right and left pulmonary arteries. Normal enhancement of the bilateral peripheral pulmonary arteries. There is no demonstrated pulmonary embolism. Normal thoracic aorta and visualized great vessels. There is no demonstrated aortic dissection. Normal heart and pericardium. Normal mediastinum. Normal hilar regions. Normal visualized trachea and thickened bronchi. Normal pleura. Prior cholecystectomy. CT/CTA Chest W/WO Contrast IMPRESSION: NO demonstrated pulmonary embolism or arterial dissection. Unchanged moderate sliding hiatal hernia. Unchanged multiple pulmonary blebs. Unchanged 1.8 cm nodule arising from the posterior aspect of the right thyroid lobe. No tracheal narrowing or deviation is seen. Mild bilateral peribronchial interstitial thickening, probably bronchitis. [facility]
--- NOTE | 2025-03-14 01:18 | EKG12_ITS ---
Test Reason : DYSRHYTHMIA Blood Pressure : */* mmHG Vent. Rate : 76 BPM Atrial Rate : 76 BPM P-R Int : 136 ms QRS Dur : 66 ms QT Int : 372 ms P-R-T Axes : 43 42 42 degrees QTcB Int : 418 ms Sinus rhythm with marked sinus arrhythmia with occasional Premature ventricular complexes Septal infarct (cited on or before 05-Aug-2023) Abnormal ECG Confirmed by ENOCH DICKENS MD ([id number]), video effects editor KENYA ROLDAN ([id number]) on 03/15/2025 10:42:54 AM Referred By: Confirmed By: ENOCH DICKENS MD
--- NOTE | 2025-03-14 01:20 | EX.ED.DYSGE1 ---
HPI History of Present Illness Chief Complaint: Cough Informant: patient and family Narrative Narrative: Patient is a 80-year-old female with past medical history of hypertension hyperlipidemia insulin-dependent diabetes and COPD. She states she has smoked roughly a pack a day for 50 years but does not require supplemental oxygen at baseline. She states that over the last 2 to 3 days she has had subjective chills with cough and this has been productive of blood. She denies any history of bleeding disorder or blood thinner use. She denies any known sick contacts. She states that symptoms have not worsened but they have also not improved and she was telling her family about the symptoms and they recommended she come in for evaluation. [facility] Medical History Wears glasses Easy bruising Dietary restriction Leg cramps History of rheumatic fever Hypertension Vision loss of right eye Vision loss of left eye Anemia Osteoporosis Smoker Tobacco use disorder, continuous Encounter for screening for malignant neoplasm of lung in current smoker with 30 pack year history or greater Bowel obstruction Vitamin D deficiency COPD (chronic obstructive pulmonary disease) Hyperlipidemia Diabetes Home Medications ?Medication ?Instructions ?Recorded ?Last Taken ?Type simvastatin 40 mg tablet 40 mg PO QHS cholesterol 09/13/19 Unknown History cholecalciferol (vitamin D3) 1,250 1,250 mcg PO .MONTHLY supplement 08/05/23 Unknown History mcg (50,000 unit) capsule losartan 25 mg tablet 25 mg PO DAILY bp 08/05/23 Unknown History insulin degludec 100 unit/mL 12 unit subcut QHS DM 09/12/23 Unknown History subcutaneous solution (Tresiba U-100 Insulin) benzonatate 100 mg capsule 100 mg PO TID PRN cough #30 caps 03/14/25 Unknown Rx doxycycline monohydrate 100 mg 100 mg PO BID 7 days #14 CAPSULES 03/14/25 Unknown Rx capsule metformin 500 mg tablet 500 mg PO BID 03/14/25 Unknown History Allergy/AdvReac Type Severity Reaction Status Date / Time No Known Allergies Allergy Verified 03/14/25 01:04 Family History Father CAD (coronary artery disease) Myocardial infarction Osteoarthritis Brother Multiple myeloma older younger brother Brain aneurysm younger brother Surgical History History of cystoscopy History of cholecystectomy History of intestinal surgery History of hysterectomy History of removal of ovarian cyst Social History Smoking Status: Current every day smoker tobacco type: cigarettes Tobacco: How many years used: 25 Electronic Cigarette Use: not used second hand exposure: Yes quit status: considering quitting ROS ROS ED Constitutional Constitutional ED: Reports chills and subjective; Denies fever(s) Eyes Eyes: Denies change in vision ENT ENT ED: Reports rhinorrhea; Denies sore throat Cardiovascular Cardiovascular: Denies chest pain, palpitations or racing heartbeat Respiratory/Chest Respiratory/Chest: Reports cough and other Details: Positive hemoptysis ; Denies dyspnea Gastrointestinal Gastrointestinal: Denies abdominal pain, diarrhea, melena, nausea or vomiting Genitourinary Genitourinary ED: Denies dysuria or hematuria Musculoskeletal Musculoskeletal: Denies myalgias Integumentary Denies rash Neurologic Neurologic: Denies headache(s) or weakness Hematologic/Lymphatic Hematologic/Lymphatic: Denies easy bleeding or easy bruising EXAM Physical Exam Const Vital Signs: 03/14/25 01:04 03/14/25 01:06 03/14/25 01:15 Temperature 97.5 F L 97.5 F L Temperature Source Oral Oral Pulse Rate 78 80 Respiratory Rate 20 H 20 H Respiratory Effort Normal Respiratory Depth Normal Respiratory Pattern Tachypnea Blood Pressure 180/80 H 180/80 H Blood Pressure Mean 113 113 Pulse Ox 96 95 Oxygen Delivery Method Room Air Room Air Room Air 03/14/25 02:06 03/14/25 02:56 Temperature 97.6 F L 98 F Temperature Source Oral Pulse Rate 81 69 Respiratory Rate 18 18 Respiratory Effort Respiratory Depth Respiratory Pattern Blood Pressure 196/93 H 160/92 H Blood Pressure Mean 127 114 Pulse Ox 98 95 Oxygen Delivery Method Room Air Positive well nourished and well developed General Appearance ED: well developed; Negative for pallor HEENT HEENT Narrative: Nasal mucosa is slightly hyperemic and boggy with clear discharge noted No tongue or lip swelling no oral lesions no airway edema or compromise There is cobblestoning the posterior pharynx consistent with sinus drainage but no secondary findings to suggest infection No dried blood or active bleeding noted Eyes PERRL and EOMs intact bilaterally General Eye ED: Negative for pale conjunctiva or scleral icterus Neck supple and no JVD Chest Wall palpation of chest normal Resp normal respiratory effort Resp Narrative: Breath sounds are diminished throughout with rhonchi noted in the right lower lobe which is asymmetric compared to the other regions. However no nasal flaring or retractions or stridor or dyspnea with speech. No accessory muscle use Cardio regular rate and regular rhythm Rate: other Other Details: Heart is regular rate and rhythm with occasional ectopic beat noted Radial and carotid pulses are equal and symmetric GI normal to inspection, nondistended, normoactive bowel sounds, non-tender, non-distended and no masses Auscultation: normoactive bowel sounds Palpation: soft Extremity normal to inspection Extremity Narrative: No asymmetric edema no pitting edema negative Homans' sign bilaterally Neuro oriented x3, CN's II-XII intact bilaterally and no sensory deficits noted Sensorium / Orientation: alert Motor Exam: strength 5/5 throughout Psych mental status grossly normal Skin no rashes or lesions noted Skin Narrative: Capillary refill is less than 3 seconds General Skin Exam: Negative for jaundice or pallor MDM MDM MDM Narrative Medical decision making narrative: Patient arrived to the ER hypertensive but has a past medical history of this and otherwise with stable vitals. She reports 3 days of cough and states that it is bloody in nature. With her longstanding history of smoking there is concern for lung pathology such as lung cancer versus bronchitis versus pulmonary embolus versus pneumonia. Patient also could have acute blood loss anemia thrombocytopenia or derangement to her bleeding times. Labs revealed a normal H&H going against acute blood loss anemia as well as normal platelet count and bleeding times. Lactic acid is also normal going against acute ischemia or severe infection. Her white blood cell count is slight elevated at 12 but this is chronically elevated per patient and chart review and actually lower than it has been in the past. The CTA of the chest revealed no PE or dissection or pneumothorax pneumonia or lung mass. It did show changes consistent with bronchitis. At this time as the patient is not requiring a blood transfusion and is hemodynamically stable with stable blood pressure and heart rate and no need for supplemental oxygen I do not feel there is need for admission. Based on her history of diabetes and chronic smoking I will place her on doxycycline because of the bronchitis. However without need for a transfusion or supplemental oxygen or CT scan showing PE or pneumonia I do not feel there is need for placement in the hospital and she is otherwise safe for discharge History & Record Review Discussion w/independent historian: Patient and Family Lab Data Attestation: I reviewed the patient's lab results. Labs: Laboratory Results - last 24 hr 03/14/25 03/14/25 01:16 01:26 WBC 12.1 H RBC 4.81 Hgb 14.9 Hct 43.9 MCV 91.3 MCH 31.0 MCHC 33.9 RDW Std Deviation 42.8 RDW Coeff of Kuldip 12.8 Plt Count 273 MPV 9.3 Immature Gran % (Auto) 0.300 Neut % (Auto) 61.5 Lymph % (Auto) 31.7 Ceiba % (Auto) 5.9 Eos % (Auto) 0.2 Baso % (Auto) 0.4 Absolute Neuts (auto) 7.4 Absolute Lymphs (auto) 3.83 Nucleated RBC % 0 PT 13.4 INR 1.0 APTT 23.0 L Sodium 140 Potassium 4.0 Chloride 107 Carbon Dioxide 21.3 Anion Gap 12 BUN 16 Creatinine 0.77 Estim Creat Clear Calc 41.90 L Est GFR (MDRD) Non-Af 79 BUN/Creatinine Ratio 21.1 H Glucose 98 Lactic Acid 1.4 Calcium 9.1 Radiography Diagnostic Testing: Clinical Impression(s) from Imaging Studies Chest CTA 03/14/25 01:18 IMPRESSION: NO demonstrated pulmonary embolism or arterial dissection. Unchanged moderate sliding hiatal hernia. Unchanged multiple pulmonary blebs. Unchanged 1.8 cm nodule arising from the posterior aspect of the right thyroid lobe. No tracheal narrowing or deviation is seen. Mild bilateral peribronchial interstitial thickening, probably bronchitis. Reading Location: [place] [address] Discharge Plan Triage Chief Complaint: Cough ED Provider: Andrez Arias Dx/Rx/DC Orders Clinical Impression: Bronchitis, Hemoptysis, Tobacco use disorder, continuous, Hypertension, Hyperlipidemia, Insulin dependent diabetes mellitus Instructions: Acute Bronchitis, ED Hemoptysis Prescriptions: New benzonatate 100 mg capsule 100 mg PO TID PRN (Reason: cough) Qty: 30 0RF doxycycline monohydrate 100 mg capsule 100 mg PO BID 7 Days Qty: 14 0RF No Action simvastatin 40 MG tablet 40 mg PO QHS cholecalciferol (vitamin D3) 1,250 mcg (50,000 unit) capsule 1,250 mcg PO .MONTHLY Patient Comments: TAKE 1 CAPSULE BY MOUTH EVERY MONTH FOR 90 DAYS losartan 25 mg tablet 25 mg PO DAILY Patient Comments: TAKE 1 TABLET BY MOUTH EVERY DAY insulin degludec [Tresiba U-100 Insulin] 100 unit/mL solution 12 unit subcut QHS metformin 500 mg tablet 500 mg PO BID Primary Care Provider: Mauro Guallpa NP Referrals: Mauro Guallpa NP, [employer]IVER-C [Primary Care Provider, [facility]] Activity Restrictions/Additional Instructions: Your CT scan did not show any type of pneumonia blood clot or lung cancer changes. It did show inflammation to the lung tissue consistent with bronchitis. This is the most common and most likely reason for your hemoptysis/coughing up blood. Please take the prescribed medication as directed to help control any further inflammatory process. The cough and blood should improve over the next 5 to 7 days. If you have worsening of symptoms or any further concerns please return to the ER for repeat evaluation Print Language: Chinese Disposition Disposition: Home, Self Care Discharge Date/Time: 03/14/25 03:04
[2025-03-14] MEDS: 0.9% Normal Saline (500mL Bag) 500 ML 999 ML IV (01:28)
[2025-03-14 01:35] LABS: Hematocrit 43.9 % (37-47); Hemoglobin 14.9 g/dL (12.0-15.0); Immature Granulocytes Count 0.040 X10^3/uL (0.0-0.0); Mean Corp Hgb Conc 33.9 g/dL (32-36); Mean Corpuscular Volume 91.3 fL (81-99); Mean Platelet Vol. 9.3 fl (6.2-12.0); NRBC Flagged by Analyzer 0 % (0-5); Platelet Count 273 K/mm3 (150-450); RBC Distribution Width CV 12.8 % (11.6-14.6); RBC Distribution Width SD 42.8 fl (35.1-43.9); Red Blood Count 4.81 M/mm3 (4.2-5.4); White Blood Count 12.1 K/mm3 (4.4-11.0)
[2025-03-14 01:45] LABS: Prothrombin Time (Protime)PT. 13.4 SECONDS (11.7-14.9)
[2025-03-14 01:46] LABS: Partial Thromboplast Time 23.0 Seconds (24.1-36.2)
[2025-03-14 01:51] LABS: Anion Gap 12 (5-15); BUN 16 mg/dL (4-19); BUN/Creat Ratio 21.1 RATIO (10-20); Calcium,Total 9.1 mg/dL (7.6-11.0); Carbon Dioxide 21.3 mmol/L (21.0-32.0); Chloride 107 mmol/L (98-108); Estimated Creatinine Clearance 41.90 ml/min (50-250); Glucose 98 mg/dL (70-99); Potassium 4.0 mmol/L (3.3-5.1)
[2025-03-14 02:06] VITALS: BP 196/93; PULSE 81; RESP 18; TEMP 36.4; O2SAT 98
--- OUTSIDE RECORDS SUMMARY | 2025-03-14 02:30 | XMS RPT_ITS | CCD ---
Author Organization [facility] Care Team Providers Care Pain Management Nurse Name Role Phone SALONI ALMOND HULLER - PATTI, ADELINA Reyes Primary Care Phys ician Saloni INSPECTOR BALANCE BRIDGE, INSPECTOR BALANCE BRIDGE-C Adelina Croft Primary Care Pr ovider Dr. Virginia Gu Emergency Provider Dr. Art Alcaraz Admit Provider Dr. Art Alcaraz Attending Provider Dr. Art Alcaraz Other Provider Dr. Baldev Gaxiola Attending Provider Dr. Baldev Gaxiola Other Provider [phone] Toby Benitez Attending Provider Dr. Roshan Simon Other Provider Dr. Hesham Solomon Attending Provider Dr. Hesham Solomon Other Provider Saloni RAYMOND-PATTI, Adelina Croft Primary Care P rovider SALONI RAYMOND - PATTI, ADELINA Reyes Primary Care U navailJULIUS Younger MD Attending Unavailgopi ble SALONI ALMOND HULLER - SAFEK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, ADELINA Reyes Attending U navailable SALONI ALMOND HULLER - SAFEK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, ADELINA Reyes Primary Care U navailable SALONI ALMOND HULLER - PATTI, ADELINA Reyes Attending U navailable SALONIDORA SIMMONSN - PATTI, ADELINA Reyes Primary Care U navailable SALONI ALMOND HULLER - SAFEK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, ADELINA Reyes Attending U navailable SALONI ALMOND HULLER - SAFEK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, ADELINA Reyes Primary Care U navailable SALONI ALMOND HULLER - SAFEK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, ADELINA Reyes Attending U navailable SALONI ALMOND HULLER - SAFEK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, ADELINA Reyes Primary Care U navailable SALONI ALMOND HULLER - SAFEK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, ADELINA Reyes Primary Care U navailable SALONI ALMOND HULLER - SAFEK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, ADELINA Reyes Attending U navailable BRADEN HOPKINS Referring Unavailable SALONI, ADELINA CROFT [facility] Unavail able CALAWAY, BRADEN Shields Attending Unavailable SALONI, ADELINA CROFT [facility] Unavail able CALAWAY, BRADEN Shields Attending Unavailable SALONI, ADELINA CROFT [facility] Care Unavail able CALAWAY, BRADEN Shields Attending Unavailable SALONI, ADELINA CROFT [facility] Unavail able CALAWAY, BRADEN Shields Attending Unavailable SALONI, ADELINA CROFT [facility] Unavail able CALAWAY, BRADEN Shields Admitting Unavailable CALAWAY, BRADEN C Attending Unavailable SALONI, ADELINA CROFT [facility] Unavail able SALONI, ADELINA CROFT [facility] Care Unavail able CALAWAY, BRADEN Shields Referring Unavailable SALONI, ADELINA CROFT [facility] Unavail able CALAWAY, BRADEN Shields Referring Unavailable SALONI, ADELINA CROFT [facility] Unavail able CALAWAY, BRADEN Shields Admitting Unavailable CALAWAY, BRADEN C Attending Unavailable SALONI, ADELINA CROFT [facility] Unavail able SALONI, ADELINA CROFT [facility] Unavail able CALAWAY, BRADEN C Admitting Unavailable CALAWAY, BRADEN C Attending Unavailable SALONI, ADELINA CROFT [facility] Unavail able CALAWAY, BRADEN Shields Attending Unavailable SALONI, ADELINA CROFT [facility] Unavail able SALONI, ADELINA CROFT [facility] Unavail able CALAWAY, BRADEN Shields Referring Unavailable SALONI, ADELINA CROFT [facility] Unavail able [place] INSPECTOR BALANCE BRIDGE, Adelina Croft [facility] Care Unav ailable AlfredRoshan Referring Unavailable Alfred, Roshan Hinson Attending Unavailable Alfred, Roshan Hinson Admitting Unavailable SALONI ALMOND HULLER - SAFEK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, ADELINA Reyes Attending U navailable SALONI ALMOND HULLER - SAFEK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, ADELINA Reyes Primary Care U navailable SALONI ALMOND HULLER - SAFEK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, ADELINA Reyes Attending U navailable SALONI ALMOND HULLER - SAFEK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, ADELINA Reyes Primary Care U navailable TYSON KNAPP MD Attending Unavail able SALONI ALMOND HULLER - SAFEK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, ADELINA Reyes Primary Care U navailable Medications Current Medications Medication Drug Class(es) Dates Sig (Normalized) Sig (Original) [id number] 200 actuat albuterol 0.09 mg/actuat metered dose inhaler (20 sources) beta2-Adrenergic Agonist Start: 08-23-2024 End: 02-19-2025 take 1 puff(s) by inhalation every four hours ProAir HFA MDI (90 mcg/inh) inhalation aerosol 1 puff(s), Inhalation, q4h, # 1 EA, 5 Refill(s), Pharmacy: [facility]/pharmacy #[id number], Chronic obstructive pulmonary disease (COPD), 156.5, cm, 08/23/24 7:58:00 EST, Height, kg, 08/23/24 7:58:00 EST, Dosing Weight Start Date: 08/23/24 Stop Date: 02/19/25 Status: Ordered Medication Dispense Status: Completed Quantity: 1.0 Unit: EA Total Allowed Fills: 6 Fills Dispensed: 0 Indications: Chronic obstructive pulmonary disease, unspecified; Start: 12-26-2023 2.5 mg, nebuli zation, Once as needed, wheezing, Starting on Tue12/26/23 at 1407, For 1 dose, Recovery (only) Start: 11-28-2023 End: 05-26-2024 take 1 puff(s) by inhalation every four hours ProAir HFA MDI (90 mcg/inh) inhalation aerosol 1 puff(s), Inhalation, q4h, # 1 EA, 5 Refill(s), Pharmacy: [facility]/pharmacy #[id number], Chronic obstructive pulmonary disease (COPD), 156, cm, 11/28/23 8:56:00 EDT, Height, kg, 11/28/23 8:56:00 EDT, Dosing Weight Start Date: 11/28/23 Stop Date: 05/26/24 Status: Ordered Start: 11-07-2023 2.5 mg, nebuli zation, Once as needed, wheezing, Starting on Tue11/07/23 at 1311, For 1 dose, Recovery (only) Start: 05-23-2023 End: 11-19-2023 take 1 puff(s) by inhalation every four hours ProAir HFA MDI (90 mcg/inh) inhalation aerosol 1 puff(s), Inhalation, q4h, # 1 EA, 5 Refill(s), Pharmacy: [facility]/pharmacy #[id number], Chronic obstructive pulmonary disease (COPD), 156, cm, 05/23/23 10:02:00 EST, Height, kg, 05/23/23 10:02:00 EST, Dosing Weight Start Date: 05/23/23 Stop Date: 11/19/23 Status: Ordered Start: 11-13-2021 End: 05-10-2023 take 1 puff(s) by inhalation every four hours ProAir HFA MDI (90 mcg/inh) inhalation aerosol 1 puff(s), Inhalation, q4h, # 1 EA, 5 Refill(s), Pharmacy: [facility]/pharmacy #[id number], Chronic obstructive pulmonary disease (COPD), 156, cm, 11/11/22 10:37:00 EDT, Height, kg, 11/11/22 10:37:00 EDT, Dosing Weight Start Date: 11/11/22 Stop Date: 05/10/23 Status: Ordered Start: 11-03-2020 End: 06-01-2021 take 1 puff(s) by inhalation every four hours ProAir HFA MDI (90 mcg/inh) inhalation aerosol 1 puff(s), Inhalation, q4h, # 1 EA, 6 Refill(s), Pharmacy: [facility]/pharmacy #[id number], Chronic obstructive pulmonary disease (COPD), 156.2, cm, 11/03/20 13:54:00 EDT, Height, kg, 11/03/20 13:54:00 EDT, Dosing Weight Start Date: 11/03/20 Stop Date: 06/01/21 Status: Ordered Start: 11-03-2020 End: 06-01-2021 take 1 puff(s) by inhalation every four hours ProAir HFA MDI (90 mcg/inh) inhalation aerosol 1 puff(s), Inhalation, q4h, # 1 EA, 6 Refill(s), Pharmacy: [facility]/pharmacy #[id number], Chronic obstructive pulmonary disease (COPD), 156.2, cm, 11/03/20 13:54:00 EDT, Height, kg, 11/03/20 13:54:00 EDT, Dosing Weight Start Date: 11/03/20 Stop Date: 06/01/21 Status: Ordered take 1 puff(s) by mo uth every four hours albuterol 90 mcg/actuation inhaler INHALE 1 PUFF BY MOUTH EVERY 4 HOURS FOR 30 DAYS Active calcium chloride 0.0014 meq/ml / potassium chloride 0.004 meq/ml / sodium chloride 0.103 meq/ml / sodium lactate 0.028 meq/ml injectable solution (4 sources) Start: 03-07-2024 take 100 mL intravenously every hour 100 mL/hr, intravenous, Continuous, Starting on Tue03/07/24 at 1515, Recovery (only) Start: 12-26-2023 take 100 mL intraven ously every hour 100 mL/hr, intravenous, Continuous, Starting on Tue12/26/23 at 1430, Recovery (only) Start: 11-07-2023 take 100 mL intraven ously every hour 100 mL/hr, intravenous, Continuous, Starting on Tue11/07/23 at 1330, Recovery (only) cefdinir 300 mg oral capsule (3 sources) Cephalosporin Antibacterial Start: 08-10-2023 take 300 mg by mouth twice daily Cefdinir Active 300 MG PO TWICE A DAY 07 01August 10, 2023 12:00am cephalexin 500 mg oral capsule (11 sources) Cephalosporin Antibacterial Start: 06-04-2024 End: 06-14-2024 cephalexin 500 mg oral capsule Dose : 500 mg = 1 cap(s), Oral, TID, X 10 day(s), # 30 cap(s), 0 Refill(s), 06/14/24 11:24:00 AM EST, Pharmacy: [facility]/pharmacy #[id number], Cellulitis of foot without toes, 157.5, cm, 06/04/24 11:07:00 EST, Height, 49, kg, 06/04/24 11:07:00 EST, Dosing Weight Start Date: 06/04/24 Stop Date: 06/14/24 Status: Ordered Start: 03-06-2024 End: 03-13-2024 cephalexin (Keflex) 250 mg c apsule Indications: Carcinoma of right ureter (Multi) Take 1 capsule (250 mg) by mouth 4 times a day for 7 days. Take two pills on 03/06, then one on 03/07 the morning before surgery. 28 capsule 03/06/2024 03/13/2024 Active Start: 11-07-2023 End: 03-06-2024 take 1 capsule by mouth three times daily cephalexin (Keflex) 500 mg capsule Indications: Ureteral mass Take 1 capsule (500 mg) by mouth 3 times a day. 15 capsule 11/07/2023 03/06/2024 Discontinued (Therapy completed) cholecalciferol 1.25 mg oral capsule (13 sources) Vitamin D Start: 08-23-2024 End: 02-19-2025 take 1 capsule by mouth once, then take 1 capsule by mouth every month cholecalciferol 1250 mcg (50,000 intl units) oral capsule Dose : 50,000 International_Unit = 1 cap(s), Oral, qmonth, # 4 cap(s), 1 Refill(s), Pharmacy: [facility]/pharmacy #[id number], Vitamin D deficiency, 156.5, cm, 08/23/24 7:58:00 EST, Height, kg, 08/23/24 7:58:00 EST, Dosing Weight Start Date: 08/23/24 Stop Date: 02/19/25 Status: Ordered Medication Dispense Status: Completed Quantity: 4.0 Unit: cap(s) Total Allowed Fills: 2 Fills Dispensed: 0 Indications: Vitamin D deficiency, unspecified; Start: 11-28-2023 End: 05-26-2024 cholecalciferol 1250 mcg (50 ,000 intl units) oral capsule Dose : 50,000 International_Unit = 1 cap(s), Oral, qmonth, # 4 cap(s), 1 Refill(s), Pharmacy: [facility]/pharmacy #[id number], Vitamin D deficiency, 156, cm, 11/28/23 8:56:00 EDT, Height, kg, 11/28/23 8:56:00 EDT, Dosing Weight Start Date: 11/28/23 Stop Date: 05/26/24 Status: Ordered Start: 08-05-2023 take 1250 ug by mout h every month Cholecalciferol (Vitamin D3) Active 1250 MCG PO .MONTHLY August 05, 2023 12:00am Start: 05-23-2023 End: 11-19-2023 cholecalciferol 1250 mcg (50 ,000 intl units) oral capsule Dose : 50,000 International_Unit = 1 cap(s), Oral, qmonth, # 4 cap(s), 1 Refill(s), Pharmacy: [facility]/pharmacy #[id number], Vitamin D deficiency, 156, cm, 05/23/23 10:02:00 EST, Height, kg, 05/23/23 10:02:00 EST, Dosing Weight Start Date: 05/23/23 Stop Date: 11/19/23 Status: Ordered Start: 09-13-2019 End: 08-05-2023 Cholecalciferol (Vitamin D3) Discontinued 1000 UNIT PO FR September 12, 2019 11:00pm August 05, 2023 6:06pm take 1 capsule by mo [facility] every month cholecalciferol (Vitamin D-3) 50,000 unit capsule TAKE 1 CAPSULE BY MOUTH EVERY MONTH FOR 90 DAYS Active diphenhydrAMINE (1 source) Histamine-1 Receptor Antagonist Start: 11-07-2023 12.5 mg, intravenous, Once as needed, itching, allergic reaction, Starting on 11/07/23 at 1311, For 1 dose, Recovery (only) docusate sodium 100 mg oral capsule (4 sources) Start: 11-07-2023 End: 12-07-2023 take 1 capsule by mouth twice daily docusate sodium (Colace) 100 mg capsule Indications: Mass of ureter Take 1 capsule (100 mg) by mouth 2 times a day. 60 capsule 11/07/2023 12/07/2023 Active doxycycline hyclate 100 mg oral capsule (1 source) Tetracycline-clas s Drug Start: 06-08-2024 End: 06-15-2024 doxycycline hyclate 100 mg oral capsule Dose : 100 mg = 1 cap(s), Oral, BID, X 7 day(s), # 14 cap(s), 0 Refill(s), 06/15/24 4:34:00 PM EST, 50 Start Date: 06/08/24 Stop Date: 06/15/24 Status: Ordered 2 ml droperidol 2.5 mg/ml injection (3 sources) Dopamine-2 Receptor Antagonist Start: 03-07-2024 0.625 mg, intravenous, Once as needed, nausea/vomiting, second line, Starting on Tue03/07/24 at 1457, For 1 dose, Recovery (only), Monitor QTc while on therapy (2 lead monitoring) Start: 12-26-2023 0.625 mg, intr avenous, Once as needed, nausea/vomiting, second line, Starting on Tue12/26/23 at 1407, For 1 dose, Recovery (only), Monitor QTc while on therapy (2 lead monitoring) Start: 11-07-2023 0.625 mg, intr avenous, Once as needed, nausea/vomiting, second line, Starting on Tue11/07/23 at 1311, For 1 dose, Recovery (only), Monitor QTc while on therapy (2 lead monitoring) glimepiride 2 mg oral tablet (8 sources) Sulfonylurea Start: 09-13-2019 End: 05-12-2022 glimepiride 2 mg oral tablet Dose : 2 mg = 1 tab(s), Oral, qDay, # 90 tab(s), 1 Refill(s), Pharmacy: [facility]/pharmacy #[id number], 156, cm, 05/23/23 10:02:00 EST, Height, kg, 05/23/23 10:02:00 EST, Dosing Weight Start Date: 05/23/23 Status: Ordered 1 ml hydrALAZINE hydrochloride 20 mg/ml injection (1 source) Arteriolar Vasodilator Start: 11-07-2023 5 mg, intravenous, Administer over 2 Minutes, Every 30 min PRN, high blood pressure, systolic blood pressure greater than 180 mmHg and heart rate less than 60 BPM, Starting on Tue11/07/23 at 1311, For 2 doses, Recovery (only) 1 ml HYDROmorphone hydrochloride 1 mg/ml cartridge (6 sources) Opioid Agonist Start: 03-07-2024 0.5 mg, intrav enous, Every 5 min PRN, pain severe (7-10), first line, Starting on Tue03/07/24 at 1457, Recovery (only), Max total of 4 mg regardless of dose. Start: 03-07-2024 0.2 mg, intrav enous, Every 5 min PRN, pain moderate (4-6), first line, Starting on Tue03/07/24 at 1457, Recovery (only), Max total of 4 mg regardless of dose. Start: 12-26-2023 0.5 mg, intrav enous, Every 5 min PRN, pain severe (7-10), first line, Starting on Tue12/26/23 at 1407, Recovery (only), Max total of 4 mg regardless of dose. Start: 12-26-2023 0.2 mg, intrav enous, Every 5 min PRN, pain moderate (4-6), first line, Starting on Tue12/26/23 at 1407, Recovery (only), Max total of 4 mg regardless of dose. Start: 11-07-2023 0.4 mg, intrav enous, Every 5 min PRN, pain severe (7-10), first line, Starting on Tue11/07/23 at 1311, Recovery (only), Max total of 4 mg regardless of dose. Start: 11-07-2023 0.2 mg, intrav enous, Every 5 min PRN, pain moderate (4-6), first line, Starting on Tue11/07/23 at 1311, Recovery (only), Max total of 4 mg regardless of dose. 3 ml insulin degludec 200 unt/ml pen injector (14 sources) Insulin Analog Start: 11-29-2024 End: 05-28-2025 inject 1 dose by subcutaneous injection once daily Tresiba FlexTouch 200 units/mL 3 mL subcutaneous solution Dose : 12 unit(s) =, Subcutaneous, qDay, rotate injection sites. pls do not fill., # 6 mL, 5 Refill(s), other reason (Rx), DM type 2, goal HbA1c Start Date: 11/29/24 Stop Date: 05/28/25 Status: Ordered Medication Dispense Status: Completed Quantity: 6.0 Unit: mL Total Allowed Fills: 6 Fills Dispensed: 0 Indications: Type 2 diabetes mellitus without complications; Start: 05-10-2024 End: 07-09-2024 inject 1 dose by subcutaneous injection once daily Tresiba FlexTouch 200 units/mL 3 mL subcutaneous solution Dose : 10 unit(s) =, Subcutaneous, qDay, rotate injection sites. pls do not fill., # 9 mL, 1 Refill(s), Pharmacy: [facility]/pharmacy #[id number], DM type 2, goal HbA1c Start Date: 05/10/24 Stop Date: 07/09/24 Status: Ordered Start: 09-14-2023 Tresiba FlexTo uch U-200 200 unit/mL (3 mL) injection 10 Units once daily in the evening. 09/14/2023 Active Start: 09-14-2023 End: 11-13-2023 Tresiba FlexTouch U-200 200 unit/mL (3 mL) injection 10 Units. 09/14/2023 Active Start: 09-14-2023 End: 11-13-2023 inject 1 dose by subcutaneous injection once daily Tresiba FlexTouch 200 units/mL 3 mL subcutaneous solution Dose : 10 unit(s) =, Subcutaneous, qDay, rotate injection sites. pls do not fill., # 9 mL, 1 Refill(s), Pharmacy: [facility]/pharmacy #[id number], DM type 2, goal HbA1c Start Date: 09/14/23 Stop Date: 11/13/23 Status: Ordered 3 ml insulin glargine 100 unt/ml pen injector (2 sources) Insulin Analog Start: 08-23-2023 End: 02-19-2024 insulin glargine (Lantus) 100 unit/mL (3 mL) pen Inject under the skin. 08/23/2023 02/19/2024 Active labetalol hydrochloride 5 mg/ml injectable solution (2 sources) beta-Adrenergic Jaquelin Start: 12-26-2023 5 mg, intravenous, Administer over 1 Minutes, Once as needed, systolic blood pressure greater than 180 mmHg, dystolic blood pressure greater than 100 mmHg and heart rate greater than 60 BPM, Starting on Tue12/26/23 at 1407, For 1 dose, Recovery (only) Start: 11-07-2023 5 mg, intraven ous, Administer over 1 Minutes, Once as needed, systolic blood pressure greater than 180 mmHg, dystolic blood pressure greater than 100 mmHg and heart rate greater than 60 BPM, Starting on Tue11/07/23 at 1311, For 1 dose, Recovery (only) losartan potassium 25 mg oral tablet (20 sources) Angiotensin 2 Receptor Jaquelin Start: 08-23-2024 losartan 25 mg oral tablet Dose : 25 mg = 1 tab(s), Oral, qDay, # 90 tab(s), 1 Refill(s), Pharmacy: [facility]/pharmacy #[id number], Hyperlipidemia LDL goal Start Date: 08/23/24 Status: Ordered Medication Dispense Status: Completed Quantity: 90.0 Unit: tab(s) Total Allowed Fills: 2 Fills Dispensed: 0 Indications: Hyperlipidemia, unspecified; Start: 11-28-2023 End: 05-26-2024 losartan 25 mg oral tablet D ose : 25 mg = 1 tab(s), Oral, qDay, # 90 tab(s), 1 Refill(s), [id number], Hyperlipidemia LDL goal Start Date: 11/28/23 Stop Date: 05/26/24 Status: Ordered Start: 05-23-2023 End: 11-19-2023 losartan 25 mg oral tablet D ose : 25 mg = 1 tab(s), Oral, qDay, # 90 tab(s), 1 Refill(s), Pharmacy: [facility]/pharmacy #[id number], Hyperlipidemia LDL goal Start Date: 05/23/23 Stop Date: 11/19/23 Status: Ordered Start: 11-11-2022 End: 05-10-2023 losartan 25 mg oral tablet D ose : 25 mg = 1 tab(s), Oral, qDay, # 90 tab(s), 1 Refill(s), [id number], Hyperlipidemia LDL goal Start Date: 11/11/22 Stop Date: 05/10/23 Status: Ordered Start: 11-03-2020 End: 11-07-2022 losartan 25 mg oral tablet D ose : 25 mg = 1 tab(s), Oral, qDay, # 90 tab(s), 1 Refill(s), [id number], Hyperlipidemia LDL goal Start Date: 05/11/22 Stop Date: 11/07/22 Status: Ordered Meperidine (1 source) Opioid Agonist Start: 12-26-2023 12.5 mg, intra venous, Every 10 min PRN, shivering, Starting on Tue12/26/23 at 1407, Recovery (only) metFORMIN hydrochloride 500 mg oral tablet (20 sources) Biguanide Start: 11-01-2024 metFORMIN 500 mg oral tablet (IR) Dose : 500 mg = 1 tab(s), Oral, BID, # 180 tab(s), 1 Refill(s), Pharmacy: [facility]/pharmacy #[id number], 156.5, cm, 08/23/24 7:58:00 EST, Height, kg, 08/23/24 7:58:00 EST, Dosing Weight Start Date: 11/01/24 Status: Ordered Medication Dispense Status: Completed Quantity: 180.0 Unit: tab(s) Total Allowed Fills: 2 Fills Dispensed: 0 Start: 10-06-2023 take 1 tablet by yoli th every twelve hours metFORMIN (Glucophage) 500 mg tablet Take 1 tablet (500 mg) by mouth every 12 hours. 01/02/2024 Active Start: 09-14-2023 metFORMIN 500 mg oral tablet (IR) Dose : 500 mg = 1 tab(s), Oral, BID, # 180 tab(s), 3 Refill(s), other reason (Rx) Start Date: 09/14/23 Status: Ordered Start: 08-21-2023 End: 03-06-2024 take 1 tablet by mouth twice daily metFORMIN (Glucophage) 1,000 mg tablet Take 1 tablet (1,000 mg) by mouth 2 times a day. 08/21/2023 Active Start: 08-05-2023 take 750 mg by mouth once [place] Metformin Active 750 MG PO DAILY August 05, 2023 12:00am Start: 11-11-2022 metFORMIN 750 mg oral tablet EXTENDED RELEASE Dose : 750 mg = 1 tab(s), Oral, qDay, # 90 tab(s), 1 Refill(s), Pharmacy: [facility]/pharmacy #[id number], DM type 2, goal HbA1c Start Date: 11/11/22 Status: Ordered Start: 05-11-2022 MetFORMIN (Eqv -Glucophage XR) 500 mg oral tablet, EXTENDED RELEASE Dose : 500 mg = 1 tab(s), Oral, qDay, # 90 tab(s), 2 Refill(s), Pharmacy: [facility]/pharmacy #[id number], 156, cm, 05/11/22 10:55:00 EST, Height, kg, 05/11/22 10:55:00 EST, Dosing Weight Start Date: 05/11/22 Status: Ordered Start: 11-03-2020 End: 02-09-2022 MetFORMIN (Eqv-Glucophage XR ) 500 mg oral tablet, EXTENDED RELEASE Dose : 500 mg = 1 tab(s), Oral, qDay, # 90 tab(s), 2 Refill(s), Pharmacy: [facility]/pharmacy #[id number], 156, cm, 11/13/21 14:14:00 EDT, Height Start Date: 11/17/21 Status: Ordered Start: 09-13-2019 End: 08-05-2023 take 1000 mg by mouth at bedtime Metformin Discontinued 1000 MG PO AT BEDTIME September 12, 2019 11:00pm August 05, 2023 6:06pm 5 ml midazolam 1 mg/ml injection (2 sources) Benzodiazepine Start: 12-26-2023 1 mg, intraven ous, Once as needed, anxiety, Starting on Tue12/26/23 at 1407, For 1 dose, Recovery (only) Start: 11-07-2023 0.5 mg, intrav enous, Every 15 min PRN, anxiety, as needed for anxiety, Starting on Tue11/07/23 at 1311, For 2 doses, Recovery (only) 2 ml ondansetron 2 mg/ml injection (2 sources) Serotonin-3 Receptor Antagonist Start: 03-07-2024 4 mg, intravenous, O nce as needed, nausea/vomiting, first line, Starting on Tue03/07/24 at 1457, For 1 dose, Recovery (only), When administering via IV Push, administer over 3-5 minutes. Start: 11-07-2023 4 mg, intraven ous, Once as needed, nausea/vomiting, first line, Starting on Tue11/07/23 at 1311, For 1 dose, Recovery (only), When administering via IV Push, administer over 3-5 minutes. oxyCODONE hydrochloride 5 mg oral tablet (13 sources) Opioid Agonist Start: 03-07-2024 take 1 tablet by mouth every four hours as needed 10 mg, oral, Every 4 hours PRN, pain severe (7-10), second line, Starting on Tue03/07/24 at 1457, Recovery (only), When able to take oral medications., If ordered PRN for pain, nurse is permitted to administer this medication for higher pain scores based on patient preference? Yes Start: 03-07-2024 take 1 tablet by yoli th every four hours as needed 5 mg, oral, Every 4 hours PRN, pain moderate (4-6), second line, Starting on Tue03/07/24 at 1457, Recovery (only), When able to take oral medications., If ordered PRN for pain, nurse is permitted to administer this medication for higher pain scores based on patient preference? Yes Start: 12-26-2023 take 1 tablet by yoli th every four hours as needed 5 mg, oral, Every 4 hours PRN, pain mild (1-3), first line, Starting on Tue12/26/23 at 1407, Recovery (only), When able to take oral medications., If ordered PRN for pain, nurse is permitted to administer this medication for higher pain scores based on patient preference? Yes Start: 11-07-2023 End: 03-07-2024 take 1 tablet by mouth every six hours oxyCODONE (Roxicodone) 5 mg immediate release tablet Indications: Mass of ureter Take 1 tablet (5 mg) by mouth every 6 hours if needed (SEVERE POST OP PAIN). 8 tablet 11/07/2023 03/07/2024 Discontinued (Stop Taking at Discharge) Start: 11-07-2023 take 1 tablet by yoli th every four hours as needed 5 mg, oral, Every 4 hours PRN, pain moderate (4-6), second line, Starting on Tue11/07/23 at 1311, Recovery (only), When able to take oral medications., If ordered PRN for pain, nurse is permitted to administer this medication for higher pain scores based on patient preference? Yes oxygen (O2) therapy (3 sources) Start: 03-07-2024 inhalation, Co ntinuous PRN - O2/gases, other, Starting on Tue03/07/24 at 1457, Recovery (only), Device: Nasal Cannula, Rate in liters per minute: Other, Custom Value: 1-6 LPM, Keep O2 Sat Above: 92% Start: 12-26-2023 inhalation, Co ntinuous PRN - O2/gases, other, Starting on Tue12/26/23 at 1407, Recovery (only), Device: Nasal Cannula, Rate in liters per minute: 2 LPM, Keep O2 Sat Above: 92% Start: 11-07-2023 inhalation, Co ntinuous PRN - O2/gases, other, Starting on Tue11/07/23 at 1311, Recovery (only), May use simple face mask with oxygen flow as needed to keep O2 sat above 92%, Device: Nasal Cannula, Rate in liters per minute: 4 LPM, Keep O2 Sat Above: 92% Pen needles 4 mm (6 sources) Start: 06-15-2024 Pen needles 4 mm See Instructions, qs for 1 month supply at once a day dosing for basal insulin, # 1 EA, 11 Refill(s), Pharmacy: [facility]/pharmacy #[id number], Uncontrolled diabetes mellitus with hyperglycemia Diabetic keto-acidosis, 157.5, cm, 06/04/24 11:07:00 EST, Height, 50, kg, 06/08/24 16:12:00 EST, Dosing Weight Start Date: 06/15/24 Status: Ordered Medication Dispense Status: Completed Quantity: 1.0 Unit: EA Total Allowed Fills: 12 Fills Dispensed: 0 Indications: Type 2 diabetes mellitus with hyperglycemia; Type 2 diabetes mellitus with ketoacidosis without coma; Start: 08-23-2023 Pen needles 4 mm See Instructions, qs for 1 month supply at once a day dosing for basal insulin, # 1 EA, 11 Refill(s), [id number], Uncontrolled diabetes mellitus with hyperglycemia Diabetic keto-acidosis, 156, cm, 08/23/23 8:51:00 EST, Height, 42.2, kg, 08/23/23 8:51:00 EST, Dosing Weight Start Date: 08/23/23 Status: Ordered phenazopyridine hydrochloride 200 mg oral tablet (10 sources) Start: 11-07-2023 End: 03-07-2024 take 1 tablet by mouth three times daily as needed for muscle spasms phenazopyridine (Pyridium) 200 mg tablet 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 10 tablet 03/07/2024 Active PreserVision AREDS (3 sources) Start: 06-04-2024 PreserVision A REDS 0 Refill(s) Start Date: 06/04/24 Status: Ordered Start: 02-09-2021 PreserVision A REDS Oral, qDay, 0 Refill(s) Start Date: 02/09/21 Status: Ordered promethazine (Phenergan) 6.25 mg in sodium chloride 0.9% 50 mL IV (1 source) Start: 12-26-2023 6.25 mg, intra venous, Administer over 15 Minutes, Once as needed, Nausea/vomiting first line, Starting on Tue12/26/23 at 1407, For 1 dose, Recovery (only) simvastatin 40 mg oral tablet (20 sources) HMG-CoA Reductase Inhibitor Start: 08-23-2024 simvastatin 40 mg or al tablet Dose : 40 mg = 1 tab(s), Oral, qHS, # 90 tab(s), 1 Refill(s), [id number], 156.5, cm, 08/23/24 7:58:00 EST, Height, kg, 08/23/24 7:58:00 EST, Dosing Weight Start Date: 08/23/24 Status: Ordered Medication Dispense Status: Completed Quantity: 90.0 Unit: tab(s) Total Allowed Fills: 2 Fills Dispensed: 0 Start: 11-28-2023 simvastatin 40 mg oral tablet Dose : 40 mg = 1 tab(s), Oral, qHS, # 90 tab(s), 1 Refill(s), Pharmacy: [facility]/pharmacy #[id number], 156, cm, 11/28/23 8:56:00 EDT, Height, kg, 11/28/23 8:56:00 EDT, Dosing Weight Start Date: 11/28/23 Status: Ordered Start: 05-23-2023 simvastatin 40 mg oral tablet Dose : 40 mg = 1 tab(s), Oral, qHS, # 90 tab(s), 1 Refill(s), Pharmacy: [facility]/pharmacy #[id number], 156, cm, 05/23/23 10:02:00 EST, Height, kg, 05/23/23 10:02:00 EST, Dosing Weight Start Date: 05/23/23 Status: Ordered Start: 09-13-2019 End: 05-12-2022 simvastatin 40 mg oral table t Dose : 40 mg = 1 tab(s), Oral, qHS, # 90 tab(s), 1 Refill(s), Pharmacy: [facility]/pharmacy #[id number], 156, cm, 05/23/23 10:02:00 EST, Height, kg, 05/23/23 10:02:00 EST, Dosing Weight Start Date: 05/23/23 Status: Ordered 1000 ml sodium chloride 9 mg/ml injection (2 sources) Start: 12-26-2023 take 100 mL intravenously every hour 100 mL/hr, intravenous, Continuous, Starting on Tue12/26/23 at 1500, Preprocedure Start: 11-07-2023 take 100 mL intraven ously every hour 100 mL/hr, intravenous, Continuous, Starting on Tue11/07/23 at 1100, Preprocedure tamsulosin hydrochloride 0.4 mg oral capsule (1 source) alpha-Adrenergic Jaquelin Start: 08-23-2023 tamsu losin 0.4 mg oral capsule Dose : 0.4 mg = 1 cap(s), Oral, qDay, # 30 cap(s), 0 Refill(s) Start Date: 08/23/23 Status: Ordered Vit C,F-Ju-Zpxbn-Lutein-Ze axan (Preservision Areds-2) 250-90-40-1 mg capsule (3 sources) Start: 01-13-2021 Vit C,B-Qh-Uglsd-Lutei n-Zeaxan (Preservision Areds-2) 250-90-40-1 mg capsule Active 1 TABLET PO TWICE A DAY January 12, 2021 11:00pm Vitamin D3 (5 sources) Start: 03-02-2019 Vitamin D3 Dos e : 2,000 unit(s) = 1 tab(s), Oral, Daily, 0 Refill(s) Start Date: 03/02/19 Status: Ordered Completed/Discontinued Medications Medication Drug Class(es) Dates Sig (Normalized) Sig (Original) acetaminophen 325 mg oral tablet (2 sources) Start: 03-07-2024 End: 03-07-2024 take 975 mg by mouth once as needed for pain 975 mg, oral, Once, On Tue03/07/24 at 1130, For 1 dose, Preprocedure, If ordered PRN for pain, nurse is permitted to administer this medication for higher pain scores based on patient preference? Yes Start: 11-07-2023 take 1 tablet by yoli every four hours as needed 650 mg, oral, Every 4 hours PRN, pain mild (1-3), first line, If patient has not received Tylenol in past 8 hours, Starting on Tue11/07/23 at 1311, Recovery (only), When able to take oral medications., If ordered PRN for pain, nurse is permitted to administer this medication for higher pain scores based on patient preference? Yes calcium carbonate 1500 mg oral tablet (3 sources) Start: 09-13-2019 End: 12-11-2019 take 2 tablets by mouth once daily Calcium Carbonate Discontinued 2 TABLET PO DAILY September 12, 2019 11:00pm December 11, 2019 11:11am celecoxib 200 mg oral capsule (1 source) Nonsteroidal Anti-inflammatory Drug Start: 03-07-2024 End: 03-07-2024 take 1 capsule by mouth once 400 mg, oral, Once, On Tue03/07/24 at 1130, For 1 dose, Preprocedure, Capsules may be opened and sprinkled on a spoonful of cold or room temperature applesauce. gabapentin 300 mg oral capsule (3 sources) Anti-epileptic Agent Start: 03-07-2024 End: 03-07-2024 take 1 capsule by mouth once 300 mg, oral, Once, On Tue03/07/24 at 1130, For 1 dose, Preprocedure, Capsules may be opened and sprinkled on food (eg, applesauce, orange juice, pudding Start: 03-02-2024 End: 03-07-2024 take 1 capsule by mouth in the morning gabapentin (Neurontin) 100 mg capsule Indications: Carcinoma of right ureter (Multi) Take 1 capsule (100 mg) by mouth early in the morning. for 3 days. 3 capsule 03/02/2024 03/07/2024 Discontinued (Stop Taking at Discharge) 1 ml heparin sodium, porcine 5000 unt/ml injection (1 source) Unfractionated Heparin, Anti-coagulant Start: 03-07-2024 End: 03-07-2024 inject 5000 [IU] by subcutaneous injection once 5,000 Units, subcutaneous, Once, On Tue03/07/24 at 1130, For 1 dose, Preprocedure, Indications: deep vein thrombosis prevention hydroCHLOROthiazide 25 mg / losartan potassium 100 mg oral tablet (3 sources) Thiazide Diuretic, Angiotensin 2 Receptor Jaquelin Start: 09-13-2019 End: 08-05-2023 take 1 tablet by mouth once daily Losartan-Hydroch lorothiazide Discontinued 1 TABLET PO DAILY September 12, 2019 11:00pm August 05, 2023 6:06pm iohexol (OMNIPaque) 350 mg iodine/mL solution 72 mL (1 source) Start: 11-22-2023 End: 11-22-2023 72 mL, intravenous, Once in imaging, Starting on Tue11/22/23 at 1417, For 1 dose magnesium gluconate 500 mg oral tablet (4 sources) Start: 09-22-2023 End: 09-29-2023 take 1 tablet by mouth twice daily Mag-G 27 mg magnesium (500 mg) tablet Take 1 tablet (27 mg) by mouth 2 times a day. 09/22/2023 09/29/2023 Start: 09-22-2023 End: 09-29-2023 Mag-G 500 mg oral tablet Dos e : 500 mg = 1 tab(s), Oral, BID, # 14 tab(s), 0 Refill(s), Pharmacy: [facility]/pharmacy #[id number], Magnesium deficiency syndrome, 156, cm, 09/14/23 13:10:00 EDT, Height, kg, 09/14/23 13:10:00 EDT, Dosing Weight Start Date: 09/22/23 Stop Date: 09/29/23 Status: Ordered metroNIDAZOLE 500 mg oral tablet (2 sources) Nitroimidazole Antimicrobial Start: 03-02-2024 End: 03-07-2024 metroNIDAZOLE (Flagyl) 500 mg tablet Indications: Carcinoma of right ureter (Multi) Take 0.5 tablets (250 mg) by mouth see administration instructions for 3 doses. Take 1 dose at 6pm, 7pm and 11pm on the day before surgery 2 tablet 03/02/2024 03/07/2024 Discontinued (Stop Taking at Discharge) neomycin sulfate 500 mg oral tablet (2 sources) Aminoglycoside Antibacterial Start: 03-02-2024 End: 03-07-2024 neomycin (Mycifradin) 500 mg tablet Indications: Carcinoma of right ureter (Multi) Take 1 tablet (500 mg) by mouth see administration instructions for 6 doses. Take 2 tabs at 6pm, 7pm, and 11pm the day before surgery. 6 tablet 03/02/2024 03/07/2024 Discontinued (Stop Taking at Discharge) Problems Active Problems Problem Classification Problem Date Documented Date Episodic/Chronic Abdominal hernia (7 sources) Hiatal hernia 08-23-2023 Episodic Bacterial infection; unspecified site (6 sources) Bacteremia caused by Gram-negative bacteria; Translations: [Bacteremia] 08-07-2023 Episodic Blindness and vision defects (9 sources) Visual impairment; Translations: [Unspecified visual loss] Onset: 11-07-2023 11-07-2023 Chronic Calculus of urinary tract (6 sources) Ureteric stone; Translations: [Calculus of ureter] 08-09-2023 Episodic Cancer of bladder (10 sources) Malignant tumor of bladder neck; Translations: [Malignant neoplasm of bladder neck] Onset: 11-17-2023 09-13-2023 Chronic Cancer of kidney and renal pelvis (6 sources) Malignant neoplasm of right kidney, except renal pelvis; 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] Onset: 02-03-2024 Chronic Cancer of other urinary organs (17 sources) Carcinoma of ureter; Translations: [Malignant neoplasm of right ureter] Onset: 12-02-2023 12-02-2023 Chronic Cardiac dysrhythmias (14 sources) Premature atrial contraction; Translations: [Atrial premature complex ] 03-01-2019 Chronic Cardiac dysrhythmias (1 source) Palpitations 11-29-2024 Episodic Chronic kidney disease (11 sources) Chronic kidney disease stage 3; Translations: [Chronic kidney disease, unspecified] Onset: 11-17-2023 05-23-2023 Chronic Chronic kidney disease (4 sources) Chronic kidney disease; Translations: [Chronic kidney disease, stage 3 unspecified] Onset: 11-17-2023 Chronic obstructive pulmonary disease and bronchiectasis (20 sources) Chronic obstructive lung disease; Translations: [Chronic obstructive pulmonary disease, unspecified] Onset: 05-05-2023 03-02-2019 Chronic Complications of surgical procedures or medical care (12 sources) 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 Chronic Deficiency and other anemia (7 sources) Anemia 05-23-2023 Episodic Diabetes mellitus with complications (6 sources) Diabetic ketoacidosis 08-23-2023 Chronic Diabetes mellitus without complication (20 sources) Type 2 diabetes mellitus; Translations: [Diabetes mellitus] Onset: 11-03-2023 12-07-2019 Chronic Diabetes mellitus without complication (6 sources) Hyperglycemia; Translations: [Hyperglycemia, unspecified] 08-05-2023 Episodic Diseases of white blood cells (19 sources) Leukocytosis; Translations: [Elevated white blood cell count, unspecified] Onset: 11-17-2023 03-01-2019 Chronic Disorders of lipid metabolism (20 sources) Hyperlipidemia; Translations: [Hyperlipidemia, unspecified] Onset: 05-05-2023 03-02-2019 Chronic Essential hypertension (20 sources) Hypertensive disorder; Translations: [Essential (primary) hypertension] Onset: 05-05-2023 08-31-2019 Chronic Genitourinary symptoms and ill-defined conditions (8 sources) Dysuria; Translations: [Asymptomatic microscopic hematuria] Onset: 09-30-2023 Episodic Gout and other crystal arthropathies (3 sources) Gout 06-04-2024 Chronic Heart valve disorders (6 sources) Tricuspid valve regurgitation 09-13-2023 Chronic Heart valve disorders (12 sources) Pansystolic murmur 02-09-2021 Episodic Neoplasms of unspecified nature or uncertain behavior (1 source) Neoplasm of right kidney 11-29-2024 Episodic Nutritional deficiencies (16 sources) Vitamin D deficiency; Translations: [Vitamin D deficiency, unspecified] Onset: 11-17-2023 03-02-2019 Chronic Osteoarthritis (12 sources) Osteoarthritis of multiple joints 03-02-2019 Chronic Osteoporosis (14 sources) Osteoporosis; Translations: [Age-related osteoporosis without current pathological fracture] Onset: 11-17-2023 03-01-2019 Chronic Other aftercare (1 source) Post-discharge follow-up 08-23-2023 Episodic Other circulatory disease (7 sources) Abnormality of abdominal aorta 08-23-2023 Chronic Other diseases of kidney and ureters (7 sources) Renal mass 08-23-2023 Chronic Other diseases of kidney and ureters (20 sources) Mass of urinary system structure; Translations: [Other specified disorders of kidney and ureter] Onset: 10-14-2023 10-14-2023 Chronic Other diseases of kidney and ureters (6 sources) Other specified disorders of kidney and ureter; Translations: [Other specified disorders of kidney and ureter] Onset: 10-14-2023 Chronic Other diseases of kidney and ureters (5 sources) Renal impairment 03-28-2020 Episodic Other liver diseases (7 sources) Large liver 08-23-2023 Episodic Other non-traumatic joint disorders (3 sources) Arthralgia of the ankle and/or foot 06-04-2024 Episodic Other nutritional; endocrine; and metabolic disorders (6 sources) Hypomagnesemia 09-13-2023 Chronic Other nutritional; endocrine; and metabolic disorders (4 sources) Hypomagnesemia; Translations: [Hypomagnesemia] Onset: 09-22-2023 Chronic Other nutritional; endocrine; and metabolic disorders (7 sources) Underweight 08-23-2023 Episodic Residual codes; unclassified (12 sources) Postmenopausal state 01-31-2020 Episodic Retinal detachments; defects; vascular occlusion; and retinopathy (9 sources) Degenerative disorder of macula ; Translations: [Unspecified macular degeneration] Onset: 11-07-2023 11-07-2023 Chronic Screening and history of mental health and substance abuse codes (12 sources) Tobacco use and exposure - finding 03-01-2019 Chronic Septicemia (except in labor) (7 sources) Sepsis; Translations: [Sepsis, unspecified organism] 08-07-2023 Episodic Skin and subcutaneous tissue infections (3 sources) Cellulitis; Translations: [Cellulitis, unspecified] Onset: 06-08-2024 Episodic Substance-related disorders (12 sources) Tobacco dependence, continuous; Translations: [Nicotine dependence, unspecified, with unspecified nicotine-induced disorders] Onset: 11-17-2023 01-13-2021 Chronic Unclassified (20 sources) Patient encounter status 02-09-2021 Unclassified (10 sources) Vaccination needed 03-19-2022 Unclassified (1 source) History of nephrectomy 11-29-2024 Urinary tract infections (6 sources) Urinary tract infectious disease; Translations: [Urinary tract infection, site not specified] 08-05-2023 Episodic Viral infection (7 sources) Post-viral disorder 08-23-2023 Episodic Past or Other Problems Problem Classification Problem Date Documented Da te Episodic/Chronic Intestinal obstruction without hernia (9 sources) Large bowel obstruction; Translations: [Unspecified intestinal obstruction, unspecified as to partial versus complete obstruction] Onset: 11-07-2023 11-07-2023 Episodic Other aftercare (2 sources) [facility]CI (current) use of insulin; Translations: [FCI (current) use of insulin (Multi)] Onset: 11-03-2023 Episodic Other diseases of kidney and ureters (2 sources) Disorder of kidney and ureter, unspecified; Translations: [Disorder of kidney and ureter, unspecified] Onset: 05-05-2023 Episodic Other screening for suspected conditions (not mental disorders or infectious disease) (18 sources) Patient encounter status; Translations: [Encounter for screening for malignant neoplasm of respiratory organs] Onset: 11-07-2023 01-13-2021 Episodic Unclassified (10 sources) Onset: 10-14-2023 10-14-2023 Results Test Name Value Interpretation Reference Range Facility .Auto Diffon 02-12-2025 Basophil, Absolute 0.0 10 3/mcL Normal 0.0-0.3 [facility] Comment on above: Performed By: #### G FR, ADIFF, LIPID, MG, A1C, CBC, VIDH, CMP, ANEU #### [address] [address] #### PTH #### [address] [address] Basophils/100 WBC (Bld) 0.4 % Normal 0.0-2.[address] [facility] Comment on above: Performed By: #### G FR, ADIFF, LIPID, MG, A1C, CBC, VIDH, CMP, ANEU #### [place] [address] #### PTH #### [address] [address] Eosinophil, Absolute 0.0 10 3/mcL Normal 0.0-0.7 [facility] Comment on above: Performed By: #### G FR, ADIFF, LIPID, MG, A1C, CBC, VIDH, CMP, ANEU #### [place] [address] #### PTH #### [address] [address] Eosinophils/100 WBC (Bld) 0.1 % Normal 0.0-6.0 [facility] Comment on above: Performed By: #### G FR, ADIFF, LIPID, MG, A1C, CBC, VIDH, CMP, ANEU #### [place] [address] #### PTH #### [address] [address] Lymphocyte, Absolute 3.0 10 3/mcL Normal 0.9-4.3 [facility] Comment on above: Performed By: #### G FR, ADIFF, LIPID, MG, A1C, CBC, VIDH, CMP, ANEU #### [place] [address] #### PTH #### [address] [address] Lymphocytes/100 WBC (Bld) 25.4 % Normal 20.0-40.0 [facility] Comment on above: Performed By: #### G FR, ADIFF, LIPID, MG, A1C, CBC, VIDH, CMP, ANEU #### [address] [address] #### PTH #### [address] [address] Monocyte, Absolute 0.6 10 3/mcL Normal 0.1-1.4 [facility] Comment on above: Performed By: #### G FR, ADIFF, LIPID, MG, A1C, CBC, VIDH, CMP, ANEU #### [address] [address] #### PTH #### [address] [address] Monocytes/100 WBC (Bld) 5.2 % Normal 2.0-13.[address] [facility] Comment on above: Performed By: #### G FR, ADIFF, LIPID, MG, A1C, CBC, VIDH, CMP, ANEU #### [address] [address] #### PTH #### [address] [address] Neutrophils/100 WBC (Bld) 68.9 % Normal 50.0-75.0 [facility] Comment on above: Performed By: #### G FR, ADIFF, LIPID, MG, A1C, CBC, VIDH, CMP, ANEU #### [address] [address] #### PTH #### [address] [address] .GFRon 02-12-2025 Estimated Glomerular Filtration Rate 70 ml/min/1.73sqm Normal [facility] Comment on above: Result Comment: Stages of Chronic Kidney Disease (CKD) Stage Description eGFR(ml/min/1.73 sq.m.) CKD 1 Normal kidney function or >=90 normal kindney function with possible kidney damage (ex. Proteinuria) CKD 2 Kidney damage with mild loss 60-89 of kidney function CKD 3a Mild to moderate loss of kidney 45-59 function CKD 3b Moderate to severe loss of 30-44 of kindey function CKD 4 Severe loss of kidney function 15-29 CKD 5 Kidney failure <15 Note: (go live 2024) the eGFR calculation was updated to the 2020 CKD-EPI creatinine equation without a race factor to calculate the eGFR results. Performed By: #### G FR, ADIFF, LIPID, MG, A1C, CBC, VIDH, CMP, ANEU #### [place] [address] #### PTH #### [address] [address] .NEUABSon 02-12-2025 Neutrophil, Absolute 8.0 10 3/mcL Normal 2.3-8.1 [facility] Comment on above: Performed By: #### G FR, ADIFF, LIPID, MG, A1C, CBC, VIDH, CMP, ANEU #### [place] [address] #### PTH #### [address] [address] A1Con 02-12-2025 Glucose [Mass/Vol] 148 mg/dL Normal [facility] Comment on above: Result Comment: Kelly mated Average Glucose calculated by equation ((28.7xA1C)-46.7) Estimated average glucose (eAG) is a calculated value from Hemoglobin A1C and is agency sales representative of the average blood glucose level in the last 2-3 month period. Normal range: less than 114 mg/dL Performed By: #### G FR, ADIFF, LIPID, MG, A1C, CBC, VIDH, CMP, ANEU #### [place] [address] #### PTH #### [place] [address] HbA1c (Bld) [Mass fraction] 6.8 % High 4.3-6.4 [facility] Comment on above: Performed By: #### G FR, ADIFF, LIPID, MG, A1C, CBC, VIDH, CMP, ANEU #### [place] [address] #### PTH #### [place] [address] CBCon 02-12-2025 Erythrocyte distribution width (RBC) [Ratio] 13.4 % Normal 11.5-15.5 [facility] Comment on above: Performed By: #### G FR, ADIFF, LIPID, MG, A1C, CBC, VIDH, CMP, ANEU #### [place] [address] #### PTH #### [place] [address] Hematocrit (Bld) [Volume fraction] 47.4 % High 34.0-46.0 [facility] Comment on above: Performed By: #### G FR, ADIFF, LIPID, MG, A1C, CBC, VIDH, CMP, ANEU #### [place] [address] #### PTH #### [place] [address] Hgb 16.0 G/dL Normal 12.0-16.0 [facility] Comment on above: Performed By: #### G FR, ADIFF, LIPID, MG, A1C, CBC, VIDH, CMP, ANEU #### [place] [address] #### PTH #### [place] [address] MCH (RBC) [Entitic mass] 30.8 pg Normal 27.0-33.0 [facility] Comment on above: Performed By: #### G FR, ADIFF, LIPID, MG, A1C, CBC, VIDH, CMP, ANEU #### [place] [address] #### PTH #### [place] [address] MCHC 33.8 G/dL Normal 32.0-36.0 [facility] Comment on above: Performed By: #### G FR, ADIFF, LIPID, MG, A1C, CBC, VIDH, CMP, ANEU #### [address] [address] #### PTH #### [place] [address] MCV (RBC) [Entitic vol] 91.0 fL Normal 80.0-99.0 [facility] Comment on above: Performed By: #### G FR, ADIFF, LIPID, MG, A1C, CBC, VIDH, CMP, ANEU #### [place] [address] #### PTH #### [place] [address] Platelet 328 10 3/mcL Normal 150-450 [facility] Comment on above: Performed By: #### G FR, ADIFF, LIPID, MG, A1C, CBC, VIDH, CMP, ANEU #### [place] [address] #### PTH #### [place] [address] Platelet mean volume (Bld) [Entitic vol] 8.0 fL Normal 6.6-10.5 [facility] Comment on above: Performed By: #### G FR, ADIFF, LIPID, MG, A1C, CBC, VIDH, CMP, ANEU #### [place] [address] #### PTH #### [place] [address] RBC 5.21 10 6/mcL Normal 4.10-5.30 [facility] Comment on above: Performed By: #### G FR, ADIFF, LIPID, MG, A1C, CBC, VIDH, CMP, ANEU #### [place] [address] #### PTH #### [place] [address] WBC 11.7 10 3/mcL High 4.5-10.8 [facility] Comment on above: Performed By: #### G FR, ADIFF, LIPID, MG, A1C, CBC, VIDH, CMP, ANEU #### [address] [address] #### PTH #### [address] [address] CMPon 02-12-2025 Albumin Level 4.0 G/dL Normal 3.4-4.8 [facility] Comment on above: Performed By: #### G FR, ADIFF, LIPID, MG, A1C, CBC, VIDH, CMP, ANEU #### [address] [address] #### PTH #### [place] [address] Albumin/Globulin [Mass ratio] 1.0 {ratio} Low 1.1-2.5 [facility] Comment on above: Performed By: #### G FR, ADIFF, LIPID, MG, A1C, CBC, VIDH, CMP, ANEU #### [address] [address] #### PTH #### [place] [address] ALP [Catalytic activity/Vol] 61 U/L Normal 40-135 [facility] Comment on above: Performed By: #### G FR, ADIFF, LIPID, MG, A1C, CBC, VIDH, CMP, ANEU #### [address] [address] #### PTH #### [place] [id number] ALT [Catalytic activity/Vol] 30 U/L Normal 14-59 [facility] Comment on above: Performed By: #### G FR, ADIFF, LIPID, MG, A1C, CBC, VIDH, CMP, ANEU #### [address] [address] #### PTH #### [address] [address] AST [Catalytic activity/Vol] 19 U/L Normal 10-40 [facility] Comment on above: Performed By: #### G FR, ADIFF, LIPID, MG, A1C, CBC, VIDH, CMP, ANEU #### [address] [address] #### PTH #### [address] [address] Bili Total 0.6 mg/dL Normal 0.2-1.0 [facility] Comment on above: Result Comment: Use of this assay is not recommended for patients undergoing treatment with eltrombopag due to the potential for falsely elevated results. Performed By: #### G FR, ADIFF, LIPID, MG, A1C, CBC, VIDH, CMP, ANEU #### [place] [address] #### PTH #### [place] [address] BUN/Creatinine Ratio 21 ratio Normal 7-27 [facility] Comment on above: Performed By: #### G FR, ADIFF, LIPID, MG, A1C, CBC, VIDH, CMP, ANEU #### [place] [address] #### PTH #### [address] [address] Calcium [Mass/Vol] 9.9 mg/dL Normal 8.4-10.2 [facility] Comment on above: Performed By: #### G FR, ADIFF, LIPID, MG, A1C, CBC, VIDH, CMP, ANEU #### [place] [address] #### PTH #### [address] [address] Chloride [Moles/Vol] 102 mmol/L Normal 98-107 [facility] Comment on above: Performed By: #### G FR, ADIFF, LIPID, MG, A1C, CBC, VIDH, CMP, ANEU #### [place] [address] #### PTH #### [address] [address] CO2 [Moles/Vol] 30 mmol/L Normal 23-31 [facility] Comment on above: Performed By: #### G FR, ADIFF, LIPID, MG, A1C, CBC, VIDH, CMP, ANEU #### [place] [address] #### PTH #### [address] [address] Creatinine [Mass/Vol] 0.86 mg/dL Normal 0.51-0.95 [facility] Comment on above: Performed By: #### G FR, ADIFF, LIPID, MG, A1C, CBC, VIDH, CMP, ANEU #### [place] [address] #### PTH #### [place] [address] Electrolyte Balance 6.0 mEq/L Normal 4.0-15.0 [facility] Comment on above: Performed By: #### G FR, ADIFF, LIPID, MG, A1C, CBC, VIDH, CMP, ANEU #### [place] [address] #### PTH #### [place] [address] Globulin 4.0 G/dL Normal 2.7-4.4 [facility] Comment on above: Performed By: #### G FR, ADIFF, LIPID, MG, A1C, CBC, VIDH, CMP, ANEU #### [place] [address] #### PTH #### [place] [address] Glucose [Mass/Vol] 133 mg/dL High 83-110 [facility] Comment on above: Performed By: #### G FR, ADIFF, LIPID, MG, A1C, CBC, VIDH, CMP, ANEU #### [place] [address] #### PTH #### [address] [address] Potassium [Moles/Vol] 5.2 mmol/L High 3.5-5.1 [facility] Comment on above: Performed By: #### G FR, ADIFF, LIPID, MG, A1C, CBC, VIDH, CMP, ANEU #### [address] [address] #### PTH #### [address] [address] Sodium [Moles/Vol] 138 mmol/L Normal 136-145 [facility] Comment on above: Performed By: #### G FR, ADIFF, LIPID, MG, A1C, CBC, VIDH, CMP, ANEU #### [address] [address] #### PTH #### [place] [address] Total Protein 8.0 G/dL Normal 6.4-8.2 [facility] Comment on above: Performed By: #### G FR, ADIFF, LIPID, MG, A1C, CBC, VIDH, CMP, ANEU #### [address] [address] #### PTH #### [address] [address] Urea nitrogen [Mass/Vol] 18 mg/dL Normal 7-18 [facility] Comment on above: Performed By: #### G FR, ADIFF, LIPID, MG, A1C, CBC, VIDH, CMP, ANEU #### [address] [address] #### PTH #### [place] [address] LABORATORYOrdered By: SYSTEM SYSTEM on 02-12-2025 25-hydroxyvitamin D3 [Mass/Vol] 45.1 ng/mL Invalid Interpretation Code AO ADM SS Comment on above: Interpretive Data: I nterpretive Values Based on Total 25(OH) Vitamin D: Deficient <20 ng/mL Insufficient 20 - <30 ng/mL Sufficient 30-100 ng/mL Albumin BCP dye [Mass/Vol] 4.0 G/dL Normal 3.4 - 4.8 G/dL AO ADM SS Albumin/Globulin [Mass ratio] 1.0 {ratio} Low 1.1 - 2.5 ratio AO ADM SS ALP [Catalytic activity/Vol] 61 U/L Normal 40 - 135 U/L AO ADM SS ALT With P-5'-P [Catalytic activity/Vol] 30 U/L Normal 14 - 59 U/L AO ADM SS AST With P-5'-P [Catalytic activity/Vol] 19 U/L Normal 10 - 40 U/L AO ADM SS Basophils (Bld) [#/Vol] 0.0 103/mcL Normal 0.0 - 0.3 10^3/mcL AO Workflow SS Basophils/100 WBC (Bld) 0.4 % Normal 0.0 - 2.5 % AO Workflow SS Bilirubin [Mass/Vol] 0.6 mg/dL Normal 0.2 - 1 .0 mg/dL AO ADM SS Comment on above: Interpretive Data: U se of this assay is not recommended for patients undergoing treatment with eltrombopag due to the potential for falsely elevated results. Calcium [Mass/Vol] 9.9 mg/dL Normal 8.4 - 10. 2 mg/dL AO ADM SS Chloride [Moles/Vol] 102 mmol/L Normal 98 - 10 7 mmol/L AO ADM SS CO2 [Moles/Vol] 30 mmol/L Normal 23 - 31 mmol/L AO ADM SS Creatinine [Mass/Vol] 0.86 mg/dL Normal 0.51 - 0.95 mg/dL AO ADM SS Electrolyte Balance 6.0 mEq/L Normal 4.0 - 15 .0 mEq/L AO ADM SS Eosinophil, Absolute 0.0 103/mcL Normal 0.0 - 0 .7 10^3/mcL AO Workflow SS Eosinophils/100 WBC (Bld) 0.1 % Normal 0.0 - 6.0 % AO Workflow SS Erythrocyte distribution width (RBC) [Ratio] 13.4 % Normal 11.5 - 15.5 % AO Workflow SS Estimated Glomerular Filtration Rate 70 ml/min/1.73sqm Invalid Interpretation Code AO Chemistry S Comment on above: Interpretive Data: Stages of Chronic Kidney Disease (CKD) Stage Description eGFR(ml/min/1.73 sq.m.) CKD 1 Normal kidney function or >=90 normal kindney function with possible kidney damage (ex. Proteinuria) CKD 2 Kidney damage with mild loss 60-89 of kidney function CKD 3a Mild to moderate loss of kidney 45-59 function CKD 3b Moderate to severe loss of 30-44 of kindey function CKD 4 Severe loss of kidney function 15-29 CKD 5 Kidney failure <15 Note: (go live 2024) the eGFR calculation was updated to the 2020 CKD-EPI creatinine equation without a race factor to calculate the eGFR results. Globulin 4.0 G/dL Normal 2.7 - 4.4 G/dL AO ADM SS Glucose [Mass/Vol] 148 mg/dL Invalid Interpretation Code AO Chemistry S Comment on above: Interpretive Data: E stimated average glucose (eAG) is a calculated value from Hemoglobin A1C and is agency sales representative of the average blood glucose level in the last 2-3 month period. Normal range: less than 114 mg/dL Glucose [Mass/Vol] 133 mg/dL High 83 - 110 mg/dL AO ADM SS HbA1c (Bld) [Mass fraction] 6.8 % High 4.3 - 6.4 % AO ADM SS Hematocrit (Bld) [Volume fraction] 47.4 % High 34.0 - 46.0 % AO Workflow SS Hemoglobin (Bld) [Mass/Vol] 16.0 G/dL Normal 12.0 - 16.0 G/dL AO Workflow SS Lymphocytes (Bld) [#/Vol] 3.0 103/mcL Normal 0.9 - 4.3 10^3/mcL AO Workflow SS Lymphocytes/100 WBC (Bld) 25.4 % Normal 20.0 - 40.0 % AO Workflow SS Magnesium [Mass/Vol] 1.5 mg/dL Low 1.8 - 2 .4 mg/dL AO ADM SS MCH (RBC) [Entitic mass] 30.8 pg Normal 27. 0 - 33.0 pg AO Workflow SS MCHC 33.8 G/dL Normal 32.0 - 36.0 G/dL AO Workflow SS MCV (RBC) [Entitic vol] 91.0 fL Normal 80.0 - 99.0 fL AO Workflow SS Monocytes (Bld) [#/Vol] 0.6 103/mcL Normal 0.1 - 1.4 10^3/mcL AO Workflow SS Monocytes/100 WBC (Bld) 5.2 % Normal 2.0 - 13.0 % AO Workflow SS Neutrophils (Bld) [#/Vol] 8.0 103/mcL Normal 2.3 - 8.1 10^3/mcL AO Workflow SS Neutrophils/100 WBC (Bld) 68.9 % Normal 50.0 - 75.0 % AO Workflow SS Parathyrin.intact [Mass/Vol] 14.9 pg/mL Low 18.5 - 88.0 pg/mL AH ADM SS Platelet mean volume (Bld) [Entitic vol] 8.0 fL Normal 6.6 - 10.5 fL AO Workflow SS Platelets (Bld) [#/Vol] 328 103/mcL Normal 150 - 450 10^3/mcL AO Workflow SS Potassium [Moles/Vol] 5.2 mmol/L High 3.5 - 5.1 mmol/L AO ADM SS Protein [Mass/Vol] 8.0 G/dL Normal 6.4 - 8.2 G/dL AO ADM SS RBC (Bld) [#/Vol] 5.21 106/mcL Normal 4.10 - 5.3 0 10^6/mcL AO Workflow SS Sodium [Moles/Vol] 138 mmol/L Normal 136 - 145 mmol/L AO ADM SS Urea nitrogen [Mass/Vol] 18 mg/dL Normal 7 - 18 mg/d L AO ADM SS Urea nitrogen/Creatinine [Mass ratio] 21 ratio Normal 7 - 27 ratio AO ADM SS WBC (Bld) [#/Vol] 11.7 103/mcL High 4.5 - 10.8 10^3/mcL AO Workflow SS LABORATORYOrdered By: Viraj Walsh on 02-12-2025 Albumin DL <= 20 mg/L (U) [Mass/Vol] 35.9 mg/L Invalid Interpretation Code AO ADM SS Albumin/Creatinine DL <= 20 mg/L (U) [Mass ratio] 184 mg/G High 0 - 30 mg/G AO Chem istry S Cholesterol [Mass/Vol] 103 mg/dL Normal 0 - 200 mg/dL AO ADM SS Comment on above: Interpretive Data: C holesterol Reference Interval: Less than 200 Desirable 200-239 Borderline high risk 240 and above High risk Cholesterol in HDL [Mass/Vol] 37 mg/dL Low 40 - 60 mg/dL AO ADM SS Cholesterol in LDL [Mass/Vol] 45 mg/dL Normal 0 - 130 mg/dL AO ADM SS Creatinine (U) [Mass/Vol] 19.5 mg/dL Invalid Interpretation Code AO ADM SS Triglyceride [Mass/Vol] 105 mg/dL Normal 0 - 150 mg/d L AO ADM SS Comment on above: Interpretive Data: T riglyceride Reference Interval: Less than 150 Normal 150-199 Borderline high risk 200-499 High risk 500 or higher Very high risk LIPIDon 02-12-2025 Cholesterol [Mass/Vol] 103 mg/dL Normal 0-200 [facility] Comment on above: Result Comment: Chol esterol Reference Interval: Less than 200 Desirable 200-239 Borderline high risk 240 and above High risk Performed By: #### G FR, ADIFF, LIPID, MG, A1C, CBC, VIDH, CMP, ANEU #### [address] [address] #### PTH #### [address] [address] Cholesterol in HDL [Mass/Vol] 37 mg/dL Low 40-60 [facility] Comment on above: Performed By: #### G FR, ADIFF, LIPID, MG, A1C, CBC, VIDH, CMP, ANEU #### [address] [address] #### PTH #### [address] [address] Cholesterol in LDL [Mass/Vol] 45 mg/dL Normal 0-130 [facility] Comment on above: Performed By: #### G FR, ADIFF, LIPID, MG, A1C, CBC, VIDH, CMP, ANEU #### [address] [address] #### PTH #### [address] [address] Triglyceride [Mass/Vol] 105 mg/dL Normal 0-[address] [facility] Comment on above: Result Comment: Trig lyceride Reference Interval: Less than 150 Normal 150-199 Borderline high risk 200-499 High risk 500 or higher Very high risk Performed By: #### G FR, ADIFF, LIPID, MG, A1C, CBC, VIDH, CMP, ANEU #### [address] [address] #### PTH #### [address] [address] MALBRon 02-12-2025 U Creatinine 19.5 mg/dL Normal [facility] Comment on above: Performed By: #### M ALBR #### [address] [address] U Microalb 35.9 mg/L Normal [facility] Comment on above: Performed By: #### M ALBR #### [address] [address] U Ratio Alb/Cre 184 mg/G High 0-30 [facility] Comment on above: Performed By: #### M ALBR #### [address] [address] MGon 02-12-2025 Magnesium [Mass/Vol] 1.5 mg/dL Low 1.8-2.4 [facility] Comment on above: Performed By: #### G FR, ADIFF, LIPID, MG, A1C, CBC, VIDH, CMP, ANEU #### [address] [address] #### PTH #### [place] [address] PTHon 02-12-2025 PTH, Intact 14.9 pg/mL Low 18.5-88.0 [facility] Comment on above: Performed By: #### G FR, ADIFF, LIPID, MG, A1C, CBC, VIDH, CMP, ANEU #### [address] [address] #### PTH #### [place] [address] VIDHon 02-12-2025 Vit. D 25-Hydroxy 45.1 ng/mL Normal [facility] Comment on above: Result Comment: Inte rpretive Values Based on Total 25(OH) Vitamin D: Deficient <20 ng/mL Insufficient 20 - <30 ng/mL Sufficient 30-100 ng/mL Performed By: #### G FR, ADIFF, LIPID, MG, A1C, CBC, VIDH, CMP, ANEU #### [address] [address] #### PTH #### [place] [address] .GFRon 07-27-2024 GFR 72 ml/min/1.73sqm Normal [facility] Comment on above: Result Comment: GFR Population mean for , Non- Americans Ages 20-29 = 116 mL/min/1.73 sq.m. Ages 30-39 = 107 mL/min/1.73 sq.m. Ages 40-49 = 99 mL/min/1.73 sq.m. Ages 50-59 = 93 mL/min/1.73 sq.m. Ages 60-69 = 85 mL/min/1.73 sq.m. Ages 70+ = 75 mL/min/1.73 sq.m. Chronic Kidney Disease: Less than 60 mL/min/1.73 square meters End Stage Renal Disease: Less than 15 mL/min/1.73 square meters Performed By: #### G FR, ADIFF, LIPID, MG, A1C, CBC, VIDH, CMP, ANEU #### [address] [address] #### PTH #### [place] [address] GFR Non- 59 ml/min/1.73sqm Normal [facility] Comment on above: Result Comment: GFR Population mean for , Non- Americans Ages 20-29 = 116 mL/min/1.73 sq.m. Ages 30-39 = 107 mL/min/1.73 sq.m. Ages 40-49 = 99 mL/min/1.73 sq.m. Ages 50-59 = 93 mL/min/1.73 sq.m. Ages 60-69 = 85 mL/min/1.73 sq.m. Ages 70+ = 75 mL/min/1.73 sq.m. Chronic Kidney Disease: Less than 60 mL/min/1.73 square meters End Stage Renal Disease: Less than 15 mL/min/1.73 square meters Performed By: #### G FR, ADIFF, LIPID, MG, A1C, CBC, VIDH, CMP, ANEU #### [address] [address] #### PTH #### [place] [id number] CMPon 07-27-2024 Electrolyte Balance 8.0 mEq/L Normal 4.0-15.0 [facility] Comment on above: Performed By: #### G FR, ADIFF, LIPID, MG, A1C, CBC, VIDH, CMP, ANEU #### [address] [address] #### PTH #### [address] [address] Albumin Level 4.2 G/dL Normal 3.4-4.8 [facility] Comment on above: Performed By: #### G FR, ADIFF, LIPID, MG, A1C, CBC, VIDH, CMP, ANEU #### [address] [address] #### PTH #### [address] [address] Albumin/Globulin [Mass ratio] 1.1 {ratio} Normal 1.1-2.5 [facility] Comment on above: Performed By: #### G FR, ADIFF, LIPID, MG, A1C, CBC, VIDH, CMP, ANEU #### [address] [address] #### PTH #### [address] [address] ALP [Catalytic activity/Vol] 63 U/L Normal 40-135 [facility] Comment on above: Performed By: #### G FR, ADIFF, LIPID, MG, A1C, CBC, VIDH, CMP, ANEU #### [address] [address] #### PTH #### [address] [address] ALT [Catalytic activity/Vol] 24 U/L Normal 14-59 [facility] Comment on above: Performed By: #### G FR, ADIFF, LIPID, MG, A1C, CBC, VIDH, CMP, ANEU #### [address] [address] #### PTH #### [place] [id number] AST [Catalytic activity/Vol] 19 U/L Normal 10-40 [facility] Comment on above: Performed By: #### G FR, ADIFF, LIPID, MG, A1C, CBC, VIDH, CMP, ANEU #### [address] [address] #### PTH #### [address] [address] Bili Total 0.4 mg/dL Normal 0.2-1.0 [facility] Comment on above: Result Comment: Use of this assay is not recommended for patients undergoing treatment with eltrombopag due to the potential for falsely elevated results. Performed By: #### G FR, ADIFF, LIPID, MG, A1C, CBC, VIDH, CMP, ANEU #### [place] [address] #### PTH #### [place] [address] BUN/Creatinine Ratio 21 ratio Normal 7-27 [facility] Comment on above: Performed By: #### G FR, ADIFF, LIPID, MG, A1C, CBC, VIDH, CMP, ANEU #### [place] [address] #### PTH #### [address] [address] Calcium [Mass/Vol] 9.5 mg/dL Normal 8.4-10.2 [facility] Comment on above: Performed By: #### G FR, ADIFF, LIPID, MG, A1C, CBC, VIDH, CMP, ANEU #### [place] [address] #### PTH #### [address] [address] Chloride [Moles/Vol] 100 mmol/L Normal 98-107 [facility] Comment on above: Performed By: #### G FR, ADIFF, LIPID, MG, A1C, CBC, VIDH, CMP, ANEU #### [place] [address] #### PTH #### [place] [id number] CO2 [Moles/Vol] 30 mmol/L Normal 23-31 [facility] Comment on above: Performed By: #### G FR, ADIFF, LIPID, MG, A1C, CBC, VIDH, CMP, ANEU #### [address] [address] #### PTH #### [address] [address] Creatinine [Mass/Vol] 0.92 mg/dL Normal 0.55-1.02 [facility] Comment on above: Result Comment: Test ing performed on Siemens Dimension EXL analyzer using a modified kinetic Елена technique. Performed By: #### G FR, ADIFF, LIPID, MG, A1C, CBC, VIDH, CMP, ANEU #### [address] [address] #### PTH #### [address] [address] Globulin 3.8 G/dL Normal [facility] Comment on above: Performed By: #### G FR, ADIFF, LIPID, MG, A1C, CBC, VIDH, CMP, ANEU #### [address] [address] #### PTH #### [address] [address] Glucose [Mass/Vol] 85 mg/dL Normal 83-110 [facility] Comment on above: Performed By: #### G FR, ADIFF, LIPID, MG, A1C, CBC, VIDH, CMP, ANEU #### [address] [address] #### PTH #### [address] [address] Potassium [Moles/Vol] 4.5 mmol/L Normal 3.5-5.1 [facility] Comment on above: Performed By: #### G FR, ADIFF, LIPID, MG, A1C, CBC, VIDH, CMP, ANEU #### [address] [address] #### PTH #### [address] [address] Sodium [Moles/Vol] 138 mmol/L Normal 136-145 [facility] Comment on above: Performed By: #### G FR, ADIFF, LIPID, MG, A1C, CBC, VIDH, CMP, ANEU #### [address] [address] #### PTH #### [address] [address] Total Protein 8.0 G/dL Normal 6.4-8.2 [facility] Comment on above: Performed By: #### G FR, ADIFF, LIPID, MG, A1C, CBC, VIDH, CMP, ANEU #### [address] [address] #### PTH #### [address] [address] Urea nitrogen [Mass/Vol] 19 mg/dL High 7-18 [facility] Comment on above: Performed By: #### G FR, ADIFF, LIPID, MG, A1C, CBC, VIDH, CMP, ANEU #### [address] [address] #### PTH #### [address] [address] LIPIDon 07-27-2024 Cholesterol [Mass/Vol] 118 mg/dL Normal 0-200 [facility] Comment on above: Result Comment: Chol esterol Reference Interval: Less than 200 Desirable 200-239 Borderline high risk 240 and above High risk Performed By: #### G FR, ADIFF, LIPID, MG, A1C, CBC, VIDH, CMP, ANEU #### [address] [address] #### PTH #### [address] [address] Cholesterol in HDL [Mass/Vol] 40 mg/dL Normal 40-60 [facility] Comment on above: Performed By: #### G FR, ADIFF, LIPID, MG, A1C, CBC, VIDH, CMP, ANEU #### [place] [address] #### PTH #### [address] [address] Cholesterol in LDL [Mass/Vol] 55 mg/dL Normal 0-130 [facility] Comment on above: Performed By: #### G FR, ADIFF, LIPID, MG, A1C, CBC, VIDH, CMP, ANEU #### [place] [address] #### PTH #### [place] [address] Triglyceride [Mass/Vol] 117 mg/dL Normal 0-150 [facility] Comment on above: Result Comment: Trig lyceride Reference Interval: Less than 150 Normal 150-199 Borderline high risk 200-499 High risk 500 or higher Very high risk Performed By: #### G FR, ADIFF, LIPID, MG, A1C, CBC, VIDH, CMP, ANEU #### [place] [address] #### PTH #### [place] [address] .Auto Diffon 07-26-2024 Basophil, Absolute 0.1 10 3/mcL Normal 0.0-0.2 [facility] Comment on above: Performed By: #### G FR, ADIFF, LIPID, MG, A1C, CBC, VIDH, CMP, ANEU #### [place] [address] #### PTH #### [place] [address] Basophils/100 WBC (Bld) 0.7 % Normal 0.0-2.5 [facility] Comment on above: Performed By: #### G FR, ADIFF, LIPID, MG, A1C, CBC, VIDH, CMP, ANEU #### [place] [address] #### PTH #### [place] [address] Eosinophil, Absolute 0.0 10 3/mcL Normal 0.0-0.7 [facility] Comment on above: Performed By: #### G FR, ADIFF, LIPID, MG, A1C, CBC, VIDH, CMP, ANEU #### [address] [address] #### PTH #### [address] [address] Eosinophils/100 WBC (Bld) 0.1 % Normal 0.0-7.0 [facility] Comment on above: Performed By: #### G FR, ADIFF, LIPID, MG, A1C, CBC, VIDH, CMP, ANEU #### [address] [address] #### PTH #### [address] [address] Lymphocyte, Absolute 3.5 10 3/mcL Normal 0.9-4.3 [facility] Comment on above: Performed By: #### G FR, ADIFF, LIPID, MG, A1C, CBC, VIDH, CMP, ANEU #### [address] [address] #### PTH #### [address] [address] Lymphocytes/100 WBC (Bld) 27.1 % Normal 20.0-40.0 [facility] Comment on above: Performed By: #### G FR, ADIFF, LIPID, MG, A1C, CBC, VIDH, CMP, ANEU #### [address] [address] #### PTH #### [address] [address] Monocyte, Absolute 0.7 10 3/mcL Normal 0.1-1.4 [facility] Comment on above: Performed By: #### G FR, ADIFF, LIPID, MG, A1C, CBC, VIDH, CMP, ANEU #### [address] [address] #### PTH #### [address] [address] Monocytes/100 WBC (Bld) 5.8 % Normal 2.0-13.0 [facility] Comment on above: Performed By: #### G FR, ADIFF, LIPID, MG, A1C, CBC, VIDH, CMP, ANEU #### [address] [address] #### PTH #### [address] [address] Neutrophils/100 WBC (Bld) 66.3 % Normal 50.0-75.0 [facility] Comment on above: Performed By: #### G FR, ADIFF, LIPID, MG, A1C, CBC, VIDH, CMP, ANEU #### [address] [address] #### PTH #### [address] [address] .NEUABSon 07-26-2024 Neutrophil, Absolute 8.5 10 3/mcL High 2.3-8.1 [facility] Comment on above: Performed By: #### G FR, ADIFF, LIPID, MG, A1C, CBC, VIDH, CMP, ANEU #### [address] [address] #### PTH #### [address] [address] A1Con 07-26-2024 Glucose [Mass/Vol] 146 mg/dL Normal [facility] Comment on above: Result Comment: Kelyl mated Average Glucose calculated by equation ((28.7xA1C)-46.7) Estimated average glucose (eAG) is a calculated value from Hemoglobin A1C and is agency sales representative of the average blood glucose level in the last 2-3 month period. Normal range: less than 114 mg/dL Performed By: #### G FR, ADIFF, LIPID, MG, A1C, CBC, VIDH, CMP, ANEU #### [address] [address] #### PTH #### [address] [address] HbA1c (Bld) [Mass fraction] 6.7 % High 4.3-6.4 [facility] Comment on above: Performed By: #### G FR, ADIFF, LIPID, MG, A1C, CBC, VIDH, CMP, ANEU #### [address] [address] #### PTH #### [address] [address] CBCon 07-26-2024 Erythrocyte distribution width (RBC) [Ratio] 14.0 % Normal 11.5-15.5 [facility] Comment on above: Performed By: #### G FR, ADIFF, LIPID, MG, A1C, CBC, VIDH, CMP, ANEU #### [place] [address] #### PTH #### [place] [address] Hematocrit (Bld) [Volume fraction] 46.7 % High 34.0-46.0 [facility] Comment on above: Performed By: #### G FR, ADIFF, LIPID, MG, A1C, CBC, VIDH, CMP, ANEU #### [place] [address] #### PTH #### [place] [address] Hgb 15.7 G/dL Normal 12.0-16.0 [facility] Comment on above: Performed By: #### G FR, ADIFF, LIPID, MG, A1C, CBC, VIDH, CMP, ANEU #### [place] [address] #### PTH #### [place] [address] MCH (RBC) [Entitic mass] 30.7 pg Normal 27.0-33.0 [facility] Comment on above: Performed By: #### G FR, ADIFF, LIPID, MG, A1C, CBC, VIDH, CMP, ANEU #### [place] [address] #### PTH #### [place] [address] MCHC 33.6 G/dL Normal 32.0-36.0 [facility] Comment on above: Performed By: #### G FR, ADIFF, LIPID, MG, A1C, CBC, VIDH, CMP, ANEU #### [place] [address] #### PTH #### [address] [address] MCV (RBC) [Entitic vol] 91.6 fL Normal 80.0-99.0 [facility] Comment on above: Performed By: #### G FR, ADIFF, LIPID, MG, A1C, CBC, VIDH, CMP, ANEU #### [place] [address] #### PTH #### [place] [address] Platelet 377 10 3/mcL Normal 150-450 [facility] Comment on above: Performed By: #### G FR, ADIFF, LIPID, MG, A1C, CBC, VIDH, CMP, ANEU #### [place] [address] #### PTH #### [place] [address] Platelet mean volume (Bld) [Entitic vol] 8.1 fL Normal 6.6-10.5 [facility] Comment on above: Performed By: #### G FR, ADIFF, LIPID, MG, A1C, CBC, VIDH, CMP, ANEU #### [place] [address] #### PTH #### [place] [address] RBC 5.10 10 6/mcL Normal 4.10-5.30 [facility] Comment on above: Performed By: #### G FR, ADIFF, LIPID, MG, A1C, CBC, VIDH, CMP, ANEU #### [place] [address] #### PTH #### [place] [address] WBC 12.8 10 3/mcL High 4.5-10.8 [facility] Comment on above: Performed By: #### G FR, ADIFF, LIPID, MG, A1C, CBC, VIDH, CMP, ANEU #### [address] [address] #### PTH #### [address] [address] FEon 07-26-2024 Iron [Mass/Vol] 114 ug/dL Normal 50-170 [facility] Comment on above: Performed By: #### G FR, ADIFF, LIPID, MG, A1C, CBC, VIDH, CMP, ANEU #### [address] [address] #### PTH #### [address] [address] IBCon 07-26-2024 TIBC 318 mcg/dL Normal 250-450 [facility] Comment on above: Performed By: #### G FR, ADIFF, LIPID, MG, A1C, CBC, VIDH, CMP, ANEU #### [address] [address] #### PTH #### [place] [address] LABORATORYOrdered By: SYSTEM SYSTEM on 07-26-2024 25-hydroxyvitamin D3 [Mass/Vol] 26.1 ng/mL Invalid Interpretation Code AO ADM SS Comment on above: Interpretive Data: I nterpretive Values Based on Total 25(OH) Vitamin D: Deficient <20 ng/mL Insufficient 20 - <30 ng/mL Sufficient 30-100 ng/mL Albumin BCP dye [Mass/Vol] 4.2 G/dL Normal 3.4 - 4.8 G/dL AO ADM SS Albumin/Globulin [Mass ratio] 1.1 {ratio} Normal 1.1 - 2.5 ratio AO ADM SS ALP [Catalytic activity/Vol] 63 U/L Normal 40 - 135 U/L AO ADM SS ALT With P-5'-P [Catalytic activity/Vol] 24 U/L Normal 14 - 59 U/L AO ADM SS AST With P-5'-P [Catalytic activity/Vol] 19 U/L Normal 10 - 40 U/L AO ADM SS Basophils (Bld) [#/Vol] 0.1 103/mcL Normal 0.0 - 0.2 10^3/mcL AO Workflow SS Basophils/100 WBC (Bld) 0.7 % Normal 0.0 - 2.5 % AO Workflow SS Bilirubin [Mass/Vol] 0.4 mg/dL Normal 0.2 - 1 .0 mg/dL AO ADM SS Comment on above: Interpretive Data: U se of this assay is not recommended for patients undergoing treatment with eltrombopag due to the potential for falsely elevated results. Calcium [Mass/Vol] 9.5 mg/dL Normal 8.4 - 10. 2 mg/dL AO ADM SS Chloride [Moles/Vol] 100 mmol/L Normal 98 - 10 7 mmol/L AO ADM SS CO2 [Moles/Vol] 30 mmol/L Normal 23 - 31 mmol/L AO ADM SS Creatinine [Mass/Vol] 0.92 mg/dL Normal 0.55 - 1.02 mg/dL AO ADM SS Comment on above: Interpretive Data: T esting performed on Siemens Dimension EXL analyzer using a modified kinetic Елена technique. Eosinophil, Absolute 0.0 103/mcL Normal 0.0 - 0 .7 10^3/mcL AO Workflow SS Eosinophils/100 WBC (Bld) 0.1 % Normal 0.0 - 7.0 % AO Workflow SS Erythrocyte distribution width (RBC) [Ratio] 14.0 % Normal 11.5 - 15.5 % AO Workflow SS GFR/1.73 sq M.predicted among blacks MDRD (S/P/Bld) [Vol rate/Area] 72 ml/min/1.73sqm Invalid Interpretation Code AO Chemistry S Comment on above: Interpretive Data: GFR Population mean for , Non- Americans Ages 20-29 = 116 mL/min/1.73 sq.m. Ages 30-39 = 107 mL/min/1.73 sq.m. Ages 40-49 = 99 mL/min/1.73 sq.m. Ages 50-59 = 93 mL/min/1.73 sq.m. Ages 60-69 = 85 mL/min/1.73 sq.m. Ages 70+ = 75 mL/min/1.73 sq.m. Chronic Kidney Disease: Less than 60 mL/min/1.73 square meters End Stage Renal Disease: Less than 15 mL/min/1.73 square meters GFR/1.73 sq M.predicted among non-blacks MDRD (S/P/Bld) [Vol rate/Area] 59 ml/min/1.73sqm Invalid Interpretation Code AO Chemistry S Comment on above: Interpretive Data: GFR Population mean for , Non- Americans Ages 20-29 = 116 mL/min/1.73 sq.m. Ages 30-39 = 107 mL/min/1.73 sq.m. Ages 40-49 = 99 mL/min/1.73 sq.m. Ages 50-59 = 93 mL/min/1.73 sq.m. Ages 60-69 = 85 mL/min/1.73 sq.m. Ages 70+ = 75 mL/min/1.73 sq.m. Chronic Kidney Disease: Less than 60 mL/min/1.73 square meters End Stage Renal Disease: Less than 15 mL/min/1.73 square meters Globulin 3.8 G/dL Invalid Interpretation Code AO ADM SS Glucose [Mass/Vol] 85 mg/dL Normal 83 - 110 mg/dL AO ADM SS Glucose [Mass/Vol] 146 mg/dL Invalid Interpretation Code AO Chemistry S Comment on above: Interpretive Data: E stimated average glucose (eAG) is a calculated value from Hemoglobin A1C and is agency sales representative of the average blood glucose level in the last 2-3 month period. Normal range: less than 114 mg/dL HbA1c (Bld) [Mass fraction] 6.7 % High 4.3 - 6.4 % AO ADM SS Hematocrit (Bld) [Volume fraction] 46.7 % High 34.0 - 46.0 % AO Workflow SS Hemoglobin (Bld) [Mass/Vol] 15.7 G/dL Normal 12.0 - 16.0 G/dL AO Workflow SS Iron [Mass/Vol] 114 ug/dL Normal 50 - 170 mcg/dL AO ADM SS Iron binding capacity [Mass/Vol] 318 mcg/dL Normal 250 - 450 mcg/dL AO ADM SS Lymphocytes (Bld) [#/Vol] 3.5 103/mcL Normal 0.9 - 4.3 10^3/mcL AO Workflow SS Lymphocytes/100 WBC (Bld) 27.1 % Normal 20.0 - 40.0 % AO Workflow SS MCH (RBC) [Entitic mass] 30.7 pg Normal 27. 0 - 33.0 pg AO Workflow SS MCHC 33.6 G/dL Normal 32.0 - 36.0 G/dL AO Workflow SS MCV (RBC) [Entitic vol] 91.6 fL Normal 80.0 - 99.0 fL AO Workflow SS Monocytes (Bld) [#/Vol] 0.7 103/mcL Normal 0.1 - 1.4 10^3/mcL AO Workflow SS Monocytes/100 WBC (Bld) 5.8 % Normal 2.0 - 13.0 % AO Workflow SS Neutrophils (Bld) [#/Vol] 8.5 103/mcL High 2.3 - 8.1 10^3/mcL AO Workflow SS Neutrophils/100 WBC (Bld) 66.3 % Normal 50.0 - 75.0 % AO Workflow SS Parathyrin.intact [Mass/Vol] 22.4 pg/mL Normal 18.5 - 88.0 pg/mL AH ADM SS Platelet mean volume (Bld) [Entitic vol] 8.1 fL Normal 6.6 - 10.5 fL AO Workflow SS Platelets (Bld) [#/Vol] 377 103/mcL Normal 150 - 450 10^3/mcL AO Workflow SS Potassium [Moles/Vol] 4.5 mmol/L Normal 3.5 - 5.1 mmol/L AO ADM SS Protein [Mass/Vol] 8.0 G/dL Normal 6.4 - 8.2 G/dL AO ADM SS RBC (Bld) [#/Vol] 5.10 106/mcL Normal 4.10 - 5.3 0 10^6/mcL AO Workflow SS Sodium [Moles/Vol] 138 mmol/L Normal 136 - 145 mmol/L AO ADM SS Urea nitrogen [Mass/Vol] 19 mg/dL High 7 - 18 mg/d L AO ADM SS Urea nitrogen/Creatinine [Mass ratio] 21 ratio Normal 7 - 27 ratio AO ADM SS WBC (Bld) [#/Vol] 12.8 103/mcL High 4.5 - 10.8 10^3/mcL AO Workflow SS LABORATORYOrdered By: Liat Shrestha on 07-26-2024 Cholesterol [Mass/Vol] 118 mg/dL Normal 0 - 200 mg/dL AO ADM SS Comment on above: Interpretive Data: C holesterol Reference Interval: Less than 200 Desirable 200-239 Borderline high risk 240 and above High risk Cholesterol in HDL [Mass/Vol] 40 mg/dL Normal 40 - 60 mg/dL AO ADM SS Cholesterol in LDL [Mass/Vol] 55 mg/dL Normal 0 - 130 mg/dL AO ADM SS Electrolyte Balance 8.0 mEq/L Normal 4.0 - 15 .0 mEq/L AO Chemistry S Triglyceride [Mass/Vol] 117 mg/dL Normal 0 - 150 mg/d L AO ADM SS Comment on above: Interpretive Data: T riglyceride Reference Interval: Less than 150 Normal 150-199 Borderline high risk 200-499 High risk 500 or higher Very high risk PTHon 07-26-2024 PTH, Intact 22.4 pg/mL Normal 18.5-88.0 [facility] Comment on above: Performed By: #### G FR, ADIFF, LIPID, MG, A1C, CBC, VIDH, CMP, ANEU #### [address] [address] #### PTH #### [address] [address] VIDHon 07-26-2024 Vit. D 25-Hydroxy 26.1 ng/mL Normal [facility] Comment on above: Result Comment: Inte rpretive Values Based on Total 25(OH) Vitamin D: Deficient <20 ng/mL Insufficient 20 - <30 ng/mL Sufficient 30-100 ng/mL Performed By: #### G FR, ADIFF, LIPID, MG, A1C, CBC, VIDH, CMP, ANEU #### [address] [address] #### PTH #### [address] [address] Blood type and Indirect anti body screen panel (Bld)on 03-07-2024 ABO group Nom (Bld) A [facility] Blood group antibody screen Ql Negative [facility] D Ag Ql (Bld) Positive [facility] ABO group Nom (Bld) A Normal [facility] Comment on above: Order Comment: Diagn osis of Diabetes-Adults Non-Diabetic: < or = 5.6% Increased risk for developing diabetes: 5.7-6.4% Diagnostic of diabetes: > or = 6.5% Monitoring of Diabetes Age (y)....................... Therapeutic Goal (%) Adults: >18.........................<7.0 Pediatrics: 13-18...................<7.5 Pediatrics: 7-12....................<8.0 Pediatrics: 0-6..................... 7.5-8.5 [place] [employer]. Diabetes Care 33(S1)Jun 2009 Performed By: #### 4 548-4 #### YASMIN Loving ([id number]) [facility] ([facility]) [address] [place] [address] Blood group antibody screen Ql Negative [facility] Comment on above: Order Comment: Diagn osis of Diabetes-Adults Non-Diabetic: < or = 5.6% Increased risk for developing diabetes: 5.7-6.4% Diagnostic of diabetes: > or = 6.5% Monitoring of Diabetes Age (y)....................... Therapeutic Goal (%) Adults: >18.........................<7.0 Pediatrics: 13-18...................<7.5 Pediatrics: 7-12....................<8.0 Pediatrics: 0-6..................... 7.5-8.5 [place] [employer]. Diabetes Care 33(S1), Jun 2009 Performed By: #### 4 548-4 #### YASMIN Loving ([id number]) [facility] ([facility]) [address] [id number] D Ag Ql (Bld) Positive [facility] Comment on above: Order Comment: Diagn osis of Diabetes-Adults Non-Diabetic: < or = 5.6% Increased risk for developing diabetes: 5.7-6.4% Diagnostic of diabetes: > or = 6.5% Monitoring of Diabetes Age (y)....................... Therapeutic Goal (%) Adults: >18.........................<7.0 Pediatrics: 13-18...................<7.5 Pediatrics: 7-12....................<8.0 Pediatrics: 0-6..................... 7.5-8.5 [place] [employer]. Diabetes Care 33(S1)Jun 2009 Performed By: #### 4 548-4 #### YASMIN Loving ([id number]) [facility] ([facility]) [address] [place], [place] [id number] Glucose Test strip manual (B ld) [Mass/Vol]on 03-07-2024 Glucose [Mass/Vol] 82 mg/dL 74 - 99 mg/dL [facility] Interpretation and review of laboratory results Normal [facility] Glucose [Mass/Vol] 82 mg/dL Normal 74-99 [facility] Comment on above: Performed By: #### 4 548-4 #### YASMIN Loving ([id number]) [facility] ([facility]) [address] [place] [address] Glucose [Mass/Vol] 112 mg/dL High 74 - 99 mg/dL [facility] Interpretation and review of laboratory results Abnormal [facility] Glucose [Mass/Vol] 112 mg/dL High 74-99 [facility] Comment on above: Performed By: #### 2 4321-2 #### YASMIN Loving ([id number]) [facility] ([facility]) [address] [place], [place] [id number] Bacteria identifiedon 2023 Bacteria identified Cx Nom (U) Test: Urine Culture Specimen Source: Clean Catch/Voided Specimen Type: Urine Specimen Date: 03/02/2024910 Result Date: 03/05/2024919 Result Status: Final result Abnormal: Yes Resulting Lab: [facility] [address] [place] [address] CULTURE 20,000 - 80,000 Klebsiella oxytoca/Raoultella species (Abnormal) SUSCEPTIBILITY Klebsiella oxytoca/Raoultella species METHOD MICROSCAN --------- -------- AMOXICILLIN/CLAVULAN ATE <=8/4 ug/mL Susceptible AMPICILLIN >16.000 ug/mL Resistant AMPICILLIN/SULBACTAM <=4/2 ug/mL Susceptible CEFAZOLIN <=2 ug/mL Susceptible CIPROFLOXACIN <=0.250 ug/mL Susceptible GENTAMICIN <=2.000 ug/mL Susceptible LEVOFLOXACIN <=0.500 ug/mL Susceptible NITROFURANTOIN <=32 ug/mL Susceptible PIPERACILLIN/TAZOBAC FARLEY <=8.000 ug/mL Susceptible TRIMETHOPRIM/SULFAME THOXAZOLE <=0.5/9.5 ug/mL Susceptible Abnormal [facility] Comment on above: Performed By: #### 2 4321-2 #### YASMIN Loving ([id number]) [facility] ([facility]) [address] [place], [place] [id number] Blood type and Indirect anti body screen panel (Bld)on 03-02-2024 ABO group Nom (Bld) A Normal [facility] Comment on above: Performed By: #### 2 4321-2 #### YASMIN Loving ([id number]) [facility] ([facility]) [address] [place] [address] Blood group antibody screen Ql Negative Normal [facility] Comment on above: Performed By: #### 2 4321-2 #### YASMIN Loving ([id number]) [facility] ([facility]) [address] [place] [address] D Ag Ql (Bld) Positive Normal [facility] Comment on above: Performed By: #### 2 4321-2 #### YASMIN Loving ([id number]) [facility] ([facility]) [address] [place] [address] CBC panel Auto (Bld)on 03-02 Erythrocyte distribution width (RBC) [Ratio] 13.0 % Normal 11.5-14.5 [facility] Comment on above: Performed By: #### 2 4321-2 #### YASMIN Loving ([id number]) [facility] ([facility]) [address] [place] [address] Hematocrit (Bld) [Volume fraction] 48.1 % High 36.0-46.0 [facility] Comment on above: Performed By: #### 2 4321-2 #### YASMIN Loving ([id number]) [facility] ([facility]) [address] [place] [address] Hemoglobin (Bld) [Mass/Vol] 15.4 g/dL Normal 12.0-16.0 [facility] Comment on above: Performed By: #### 2 4321-2 #### YASMIN Loving ([id number]) [facility] ([facility]) [address] [place] [address] MCH (RBC) [Entitic mass] 29.9 pg Normal 26.0-34.0 [facility] Comment on above: Performed By: #### 2 4321-2 #### YASMIN Loving ([id number]) [facility] ([facility]) [address] [place] [address] MCHC (RBC) [Mass/Vol] 32.0 g/dL Normal 32.0-36.0 [facility] Comment on above: Performed By: #### 2 4321-2 #### YASMIN Loving ([id number]) [facility] ([facility]) [address] [place] [address] MCV (RBC) [Entitic vol] 93 fL Normal 80-100 U [facility] Comment on above: Performed By: #### 2 4321-2 #### YASMIN Loving ([id number]) [facility] ([facility]) [address] [place] [address] Nucleated RBC/100 WBC (Bld) [Ratio] 0.0 /100 WBCs Normal 0.0-0.0 [facility] Comment on above: Performed By: #### 2 4321-2 #### YASMIN Loving ([id number]) [facility] ([facility]) [address] [place] [address] Platelets (Bld) [#/Vol] 377 x10*3/uL Normal 150-450 [facility] Comment on above: Performed By: #### 2 4321-2 #### YASMIN Loving ([id number]) [facility] ([facility]) [address] [place] [address] RBC (Bld) [#/Vol] 5.15 x10*6/uL Normal 4.00-5.20 [facility] Comment on above: Performed By: #### 2 4321-2 #### YASMIN Loving ([id number]) [facility] ([facility]) [address] [place] [address] WBC (Bld) [#/Vol] 13.6 x10*3/uL High 4.4-11.3 [facility] Comment on above: Performed By: #### 2 4321-2 #### YASMIN Loving ([id number]) [facility] ([facility]) [address] [place] [address] PT and aPTT panel Coag (PPP) on 03-02-2024 aPTT Coag (PPP) [Time] 36 s Normal 27-38 Un [facility] Comment on above: Order Comment: The A PTT is no longer used for monitoring Unfractionated Heparin Therapy. For monitoring Heparin Therapy, use the Heparin Assay. Performed By: #### 2 4321-2 #### YASMIN Loving ([id number]) [facility] ([facility]) [address] [place] [address] INR Coag (PPP) [Relative time] 1.0 Normal 0.9-1.1 [facility] Comment on above: Order Comment: The A PTT is no longer used for monitoring Unfractionated Heparin Therapy. For monitoring Heparin Therapy, use the Heparin Assay. Performed By: #### 2 4321-2 #### YASMIN Loving ([id number]) [facility] ([facility]) [address] [place] [address] PT Coag (PPP) [Time] 11.6 s Normal 9.8-12.8 [facility] Comment on above: Order Comment: The A PTT is no longer used for monitoring Unfractionated Heparin Therapy. For monitoring Heparin Therapy, use the Heparin Assay. Performed By: #### 2 4321-2 #### YASMIN Loving ([id number]) [facility] ([facility]) [address] [place] [address] Urinalysis complete W Reflex Culture panel (U)on 03-02-2024 Appearance (U) Clear Normal Clear [facility] Comment on above: Performed By: #### 2 4321-2 #### YASMIN Loving ([id number]) [facility] ([facility]) [address] [place] [address] Bilirubin (U) [Mass/Vol] Negative Normal NEGATIVE [facility] Comment on above: Performed By: #### 2 4321-2 #### YASMIN Loving ([id number]) [facility] ([facility]) [address] [place] [address]14 Color (U) Colorless Normal Light-Yellow, Yellow, Dark-Yellow [facility] Comment on above: Performed By: #### 2 4321-2 #### YASMIN Loving ([id number]) [facility] ([facility]) [address] [place] [address] Glucose Auto test strip (U) [Mass/Vol] Normal Normal Normal [facility] Comment on above: Performed By: #### 2 4321-2 #### YASMIN Loving ([id number]) [facility] ([facility]) [address] [place] [address]67 Ketones (U) [Mass/Vol] Negative Normal NEGATIVE [facility] Comment on above: Performed By: #### 2 4321-2 #### YASMIN Loving ([id number]) [facility] ([facility]) [address] [place] [address] Leukocyte esterase Auto test strip Ql (U) 75 [place]/???L Abnormal NEGATIVE [facility] Comment on above: Performed By: #### 2 4321-2 #### YASMIN Loving ([id number]) [facility] ([facility]) [address] [place] [address] Nitrite Auto test strip Ql (U) Negative Normal NEGATIVE [facility] Comment on above: Performed By: #### 2 4321-2 #### YASMIN Loving ([id number]) [facility] ([facility]) [address] [place] [address] pH (U) 6.0 [pH] Normal 5.0, 5.5, 6.0, 6.5, 7.0, 7.5, 8.0 [facility] Comment on above: Performed By: #### 2 4321-2 #### YASMIN Loving ([id number]) [facility] ([facility]) [address] [place] [address]42 Protein (U) [Mass/Vol] Negative Normal NEGAT TOÑA, 10 (TRACE), 20 (TRACE) [facility] Comment on above: Performed By: #### 2 4321-2 #### YASMIN Loving ([id number]) [facility] ([facility]) [address] [place] [address]000 RBC (U) [#/Vol] 0.03 (TRACE) Abnormal NEGATIVE [facility] Comment on above: Performed By: #### 2 4321-2 #### YASMIN Loving ([id number]) [facility] ([facility]) [address] [place] [address] 24878 Specific gravity (U) [Rel density] 1.004 Normal 1.005-1.035 [facility] Comment on above: Performed By: #### 2 4321-2 #### YASMIN Loving ([id number]) [facility] ([facility]) [address] [place] [address] 87116 Urobilinogen (U) [Mass/Vol] Normal Normal Normal [facility] Comment on above: Performed By: #### 2 4321-2 #### YASMIN Loving ([id number]) [facility] ([facility]) [address] [place] [address] 63336 Urinalysis microscopic panel Auto Ql (U)on 03-02-2024 Bacteria Auto (Urine sed) [#/Area] 3+ /HPF Abnormal NONE SEEN [facility] Comment on above: Performed By: #### 2 4321-2 #### YASMIN Loving ([id number]) [facility] ([facility]) [address] [place] [address] 48167 RBC Auto (Urine sed) [#/Area] 1-2 Normal NONE, 1-2, 3-5 [facility] Comment on above: Performed By: #### 2 4321-2 #### YASMIN Loving ([id number]) [facility] ([facility]) [address] [place] [address] 68808 WBC Auto (Urine sed) [#/Area] 6-10 Abnormal 1-5, NONE [facility] Comment on above: Performed By: #### 2 4321-2 #### YASMIN Loving ([id number]) [facility] ([facility]) [address] [place] [address] FL FLUORO IMAGES NO CHARGEon 12-26-2023 FL FLUORO IMAGES NO CHARGE These images are not reportable by radiology and will not be interpreted by Radiologists. Normal [facility] Glucose Test strip manual (B ld) [Mass/Vol]on 12-26-2023 Glucose [Mass/Vol] 98 mg/dL 74 - 99 mg/dL [facility] Interpretation and review of laboratory results Normal [facility] Glucose [Mass/Vol] 98 mg/dL Normal 74-99 [facility] Comment on above: Performed By: #### 2 4321-2 #### YASMIN Loving ([id number]) [facility] ([facility]) [address] [place], [place] [address] Glucose [Mass/Vol] 119 mg/dL High 74 - 99 mg/dL [facility] Interpretation and review of laboratory results Abnormal [facility] Glucose [Mass/Vol] 119 mg/dL High 74-99 [facility] Comment on above: Performed By: #### 3 4529-8 #### YASMIN Loving ([id number]) [facility] ([facility]) [address] [place], [place] [address] Surgical pathology studyon 0 12-26-2023 Surgical pathology study Pathology report.total SEE COMMENT Surgical Pathology Case: [id number] Authorizing Provider: Braden Hopkins MD MPH Collected: 12/26/2023 1340 Ordering Location: [facility] Received: 12/26/2023 [facility] [place] Pathologist: Yulissa Barrientos MD Specimen: URETER BIOPSY RIGHT, right ureter biopsy Path report.final diagnosis SEE COMMENT A. Ureter, right, biopsy: -- Atypical urothelial proliferation (see note) Note: Histologic sections demonstrate multiple fragments of urothelial mucosa with patchy chronic inflammation. The majority of the fragments are unremarkable or demonstrate features of reactive polypoid ureteritis. However, two fragments show mild urothelial atypia and thickening as well as an inverted-type growth pattern. The findings are not conclusive for a neoplastic process, however, close clinical follow-up is recommended. Laboratory comment By the signature on this report, the individual or group listed as making the Final Interpretation/Diagn osis certifies that they have reviewed this case. 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 The specimen is submitted in toto in one cassette. 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 IMAGING Bacteria identifiedon 2023 Bacteria identified Cx Nom (U) Test: Urine Culture Specimen Source: Clean Catch/Voided Specimen Type: Urine Specimen Date: 12/19/20231111 Result Date: 12/21/2023840 Result Status: Final result Abnormal: No Resulting Lab: [facility] [address] [place], [place] [id number] CULTURE No significant growth [facility] Comment on above: Performed By: #### 3 4529-8 #### YASMIN Loving ([id number]) [facility] ([facility]) [address] [place] [address] 68561 Basic metabolic 2000 panelon 12-19-2023 Anion gap [Moles/Vol] 12 mmol/L Normal 10-20 [facility] Comment on above: Performed By: #### 3 4529-8 #### YASMIN Loving ([id number]) [facility] ([facility]) [address] [place] [address] 16459 Calcium [Mass/Vol] 9.2 mg/dL Normal 8.6-10.3 [facility] Comment on above: Performed By: #### 3 4529-8 #### YASMIN Loving ([id number]) [facility] ([facility]) [address] [place] [address] 14830 Chloride [Moles/Vol] 102 mmol/L Normal 98-107 [facility] Comment on above: Performed By: #### 3 4529-8 #### YASMIN Loving ([id number]) [facility] ([facility]) [address] [place] [address] CO2 [Moles/Vol] 28 mmol/L Normal 21-32 [facility] Comment on above: Performed By: #### 3 4529-8 #### YASMIN MCKENZIE L ([id number]) [facility] ([facility]) [address] [place] [address] Creatinine [Mass/Vol] 0.94 mg/dL Normal 0.50-1.05 [facility] Comment on above: Performed By: #### 3 4529-8 #### YASMIN Loving ([id number]) [facility] ([facility]) [address] [place] [address] 88525 Glomerular filtration rate/1.73 sq M.predicted 63 mL/min/1.73m*2 Normal >60 [facility] Comment on above: Result Comment: Calc ulations of estimated GFR are performed using the 2020 CKD-EPI Study Refit equation without the race variable for the IDMS-Traceable creatinine methods. https://jasn.asnjournals.org/content///ASN.982 9180617 Performed By: #### 3 4529-8 #### YASMIN Loving ([id number]) [facility] ([facility]) [address] [place] [address] Glucose [Mass/Vol] 134 mg/dL High 74-99 [facility] Comment on above: Performed By: #### 3 4529-8 #### YASMIN Loving ([id number]) [facility] ([facility]) [address] [place] [address] Potassium [Moles/Vol] 4.8 mmol/L Normal 3.5-5.3 [facility] Comment on above: Performed By: #### 3 4529-8 #### YASMIN Loving ([id number]) [facility] ([facility]) [address] [place] [address] 53826 Sodium [Moles/Vol] 137 mmol/L Normal 136-145 [facility] Comment on above: Performed By: #### 3 4529-8 #### YASMIN Loving ([id number]) [facility] ([facility]) [address] [place] [address] 72408 Urea nitrogen [Mass/Vol] 29 mg/dL High 6-23 [facility] Comment on above: Performed By: #### 3 4529-8 #### YASMIN Loving ([id number]) [facility] ([facility]) [address] [place] [address] 84881 CBC panel Auto (Bld)on 12-18 Erythrocyte distribution width (RBC) [Ratio] 14.3 % Normal 11.5-14.5 [facility] Comment on above: Performed By: #### 3 4529-8 #### YASMIN Loving ([id number]) [facility] ([facility]) [address] [place] [address] 91487 Hematocrit (Bld) [Volume fraction] 45.5 % Normal 36.0-46.0 [facility] Comment on above: Performed By: #### 3 4529-8 #### YASMIN Loving ([id number]) [facility] ([facility]) [address] [place] [address] 76136 Hemoglobin (Bld) [Mass/Vol] 14.9 g/dL Normal 12.0-16.0 [facility] Comment on above: Performed By: #### 3 4529-8 #### YASMIN Loving ([id number]) [facility] ([facility]) [address] [place] [address] 89978 MCH (RBC) [Entitic mass] 29.5 pg Normal 26.0-34.0 [facility] Comment on above: Performed By: #### 3 4529-8 #### YASMIN Loving ([id number]) [facility] ([facility]) [address] [place] [address] 93810 MCHC (RBC) [Mass/Vol] 32.7 g/dL Normal 32.0-36.0 [facility] Comment on above: Performed By: #### 3 4529-8 #### YASMIN Loving ([id number]) [facility] ([facility]) [address] [place] [address] 72881 MCV (RBC) [Entitic vol] 90 fL Normal 80-100 U [facility] Comment on above: Performed By: #### 3 4529-8 #### YASMIN Loving ([id number]) [facility] ([facility]) [address] [place] [address] 93047 Nucleated RBC/100 WBC (Bld) [Ratio] 0.0 /100 WBCs Normal 0.0-0.0 [facility] Comment on above: Performed By: #### 3 4529-8 #### YASMIN Loving ([id number]) [facility] ([facility]) [address] [place] [address] 26976 Platelets (Bld) [#/Vol] 296 x10*3/uL Normal 150-450 [facility] Comment on above: Performed By: #### 3 4529-8 #### YASMIN Loving ([id number]) [facility] ([facility]) [address] [place] [address] 11040 RBC (Bld) [#/Vol] 5.05 x10*6/uL Normal 4.00-5.20 [facility] Comment on above: Performed By: #### 3 4529-8 #### YASMIN Loving ([id number]) [facility] ([facility]) [address] [place] [address] 42657 WBC (Bld) [#/Vol] 13.9 x10*3/uL High 4.4-11.3 [facility] Comment on above: Performed By: #### 3 4529-8 #### YASMIN Loving ([id number]) [facility] ([facility]) [address] [place] [address] 15680 Coagulation tissue factor in ducedon 12-19-2023 PT Coag (PPP) [Time] 11.3 s Normal 9.8-12.8 [facility] Comment on above: Performed By: #### 3 4529-8 #### YASMIN Loving ([id number]) [facility] ([facility]) [address] [place] [address] 45151 PT Coag (PPP) [Time]on 12-18 INR Coag (PPP) [Relative time] 1.0 Normal 0.9-1.1 [facility] Comment on above: Performed By: #### 3 4529-8 #### YASMIN Loving ([id number]) [facility] ([facility]) [address] [place] [address] 82235 Urinalysis complete panel (U )on 12-19-2023 Appearance (U) Clear Normal Clear [facility] Comment on above: Performed By: #### 3 4529-8 #### YASMIN Loving ([id number]) [facility] ([facility]) [address] [place] [address] 10581 Bilirubin (U) [Mass/Vol] Negative Normal NEGATIVE [facility] Comment on above: Performed By: #### 3 4529-8 #### YASMIN Loving ([id number]) [facility] ([facility]) [address] [place] [address] 36013 Color (U) Colorless Normal Light-Yellow, Yellow, Dark-Yellow [facility] Comment on above: Performed By: #### 3 4529-8 #### YASMIN Loving ([id number]) [facility] ([facility]) [address] [place] [address] 59050 Glucose Auto test strip (U) [Mass/Vol] Normal Normal Normal [facility] Comment on above: Performed By: #### 3 4529-8 #### YASMIN Loving ([id number]) [facility] ([facility]) [address] [place] [address] 75761 Ketones (U) [Mass/Vol] Negative Normal NEGATIVE [facility] Comment on above: Performed By: #### 3 4529-8 #### YASMIN Loving ([id number]) [facility] ([facility]) [address] [place] [address] 70649 Leukocyte esterase Auto test strip Ql (U) Negative Normal NEGATIVE [facility] Comment on above: Performed By: #### 3 4529-8 #### YASMNI Loving ([id number]) [facility] ([facility]) [address] [place] [address] 64324 Nitrite Auto test strip Ql (U) Negative Normal NEGATIVE [facility] Comment on above: Performed By: #### 3 4529-8 #### YASMIN Loving ([id number]) [facility] ([facility]) [address] [place] [address] 39611 pH (U) 5.5 [pH] Normal 5.0, 5.5, 6.0, 6.5, 7.0, 7.5, 8.0 [facility] Comment on above: Performed By: #### 3 4529-8 #### YASMIN Loving ([id number]) [facility] ([facility]) [address] [place] [address] 94013 Protein (U) [Mass/Vol] Negative Normal NEGAT TOÑA, 10 (TRACE), 20 (TRACE) [facility] Comment on above: Performed By: #### 3 4529-8 #### YASMIN Loving ([id number]) [facility] ([facility]) [address] [place] [address] 42207 RBC (U) [#/Vol] 0.5 (2+) Abnormal NEGATIVE [facility] Comment on above: Performed By: #### 3 4529-8 #### YASMIN Loving ([id number]) [facility] ([facility]) [address] [place] [address] 00215 Specific gravity (U) [Rel density] 1.004 Normal 1.005-1.035 [facility] Comment on above: Performed By: #### 3 4529-8 #### YASMIN Loving ([id number]) [facility] ([facility]) [address] [place] [address] 37963 Urobilinogen (U) [Mass/Vol] Normal Normal Normal [facility] Comment on above: Performed By: #### 3 4529-8 #### YASMIN Loving ([id number]) [facility] ([facility]) [address] [place] [address] 26171 Urinalysis microscopic panel Auto Ql (U)on 12-19-2023 RBC Auto (Urine sed) [#/Area] 1-2 Normal NONE, 1-2, 3-5 [facility] Comment on above: Performed By: #### 3 4529-8 #### YASMIN BARAJASER Inder ([id number]) [facility] ([facility]) [address] [place] [address] 50364 WBC Auto (Urine sed) [#/Area] 1-5 Normal 1-5, NONE [facility] Comment on above: Performed By: #### 3 4529-8 #### YASMIN Loving ([id number]) [facility] ([facility]) [address] [place], [place] [id number] CT UROGRAPHY WITH 3D VOLUME RENDERED IMAGINGon 11-22-2023 CT UROGRAPHY WITH 3D VOLUME RENDERED IMAGING Interpreted By: Day Truong, STUDY: CT UROGRAPHY WITH 3D VOLUME RENDERED IMAGING; 11/22/2023 2:16 pm INDICATION: Signs/Symptoms:urete ral mass COMPARISON: None ACCESSION NUMBER(S): [id number] ORDERING CLINICIAN: BRADEN HOPKINS TECHNIQUE: CT of the abdomen and pelvis was performed without and with IV contrast. Routine CT urogram protocol was performed including noncontrast CT images of the abdomen and pelvis followed by nephrographic, and excretory phase images. 3D reformatted images were obtained. 75 mL contrast material, Omnipaque 350 was administered intravenously. Coronal and sagittal reformatted images were obtained. FINDINGS: KIDNEYS/URETERS: Pre contrast images demonstrate a nonobstructing calculus within the interpolar collecting system of the right kidney measuring 6 x 7 mm in size. Additional 3 mm nonobstructing calculus with interpolar region of the right kidney also seen. No radiodense calculi within the left kidney. Postoperative changes related to previous cryoablation within the right interpolar renal cortex laterally and posteriorly. There is an intermediate attenuation lesion within the superior pole cortex of the left kidney measuring 1.7 x 1.4 cm in size. This demonstrates no significant enhancement following contrast administration. Findings may represent a complex/complicated cyst but too small to fully characterize. There is heterogeneous enhancement of the right kidney superior pole cortex, interpolar region and inferior pole cortex. Findings are nonspecific in etiology may represent heterogeneous ischemia, however, an infectious process such as pyelonephritis may have similar appearance. Multiple low-attenuation lesions within the left kidney reaching up to 1 cm in size each also noted. Findings may represent cysts. There is mild prominence of the right renal collecting system and there is mild urothelial thickening of the right renal pelvis and proximal right ureter. There is a double-J ureteral stent within the right renal collecting system. Symmetric excretion of contrast into bilateral collecting systems. No filling defects within the opacified collecting systems. BLADDER: Within normal limits. ABDOMEN: LIVER: Liver is enlarged measuring up to 20 cm in craniocaudal dimension. No focal masses are seen. Mild prominence of the intra hepatic biliary system. SPLEEN: No focal splenic lesions. PANCREAS: No focal pancreatic lesions. ADRENALS: Within normal limits. GALLBLADDER: The gallbladder is not seen and may have been surgically removed. Surgical clips in the gallbladder fossa. BILE DUCTS: Minimal prominence of the intrahepatic biliary tree. Common bile duct not dilated. VESSELS: Diffuse wall calcification of the aorta and its main branches. No aneurysm or dissection. BOWEL: Large hiatal hernia containing part of stomach. Retained fecal material throughout the colon. Colonic diverticula but no CT evidence for acute diverticulitis. Mild prominence of the small bowel loops suggestive of an ileus type pattern. There is no mesenteric edema or lymphadenopathy. No free air. PERITONEUM/RETROPERI TONEUM/LYMPH NODES: No lymphadenopathy by CT size criteria. No ascites or free air. PELVIS: REPRODUCTIVE ORGANS: No pelvic masses. ABDOMINAL WALL: Within normal limits. BONES: No aggressive osseous lesions. LOWER CHEST: Lung bases are clear. IMPRESSION: 1. 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 No definite abnormal enhancement in the area of prior ablation is seen to suggest recurrent or residual tumor, however, evaluation is markedly limited in this exam due to heterogeneous enhancement of the right kidney. Multifocal pyelonephritis can not be excluded. Correlation with urinalysis and short-term follow-up recommended. 2. Mild right-sided hydronephrosis despite double-J right-sided ureteral stent in place. There is diffuse urothelial thickening concerning for infectious process. Infiltrative process not excluded. Recommend clinical correlation and follow-up. 3. Intermediate attenuation lesion involving the superior pole cortex of the left kidney. Correlation with renal ultrasound studies recommended to exclude solid malignancy. Multiple additional low-attenuation lesions especially within the left kidney as above. 4. Constipation and mild small bowel ileus. 5. Diffuse colonic diverticulosis but no CT evidence for acute diverticulitis. 6. Large hiatal hernia containing part of stomach. 7. Additional detailed findings as above Signed by: Day Truong 11/24/2023 12:35 PM Dictation workstation: [id number] [facility] RENINon 11-21-2023 Renin Activity 1.174 ng/mL/hr Normal 0.167-5.380 [facility] ([place]) Comment on above: Result Comment: This test was developed and its performance characteristics determined by [facility]. It has not been cleared or approved by the Food and Drug Administration. Performed At: [facility] [id number] Rayshawn Paul MD Ph:[phone] Performed By: #### D HEAS, INSLN, CPEP, ANKUR, HCV1, MADYSON, GEOVANNA, GGT, PTH #### [place] [address] #### [id number], VIDH, 107744, GFR, MG, JESSICA, CMP, LIP, TSH, ADIFF, CRP, PHOS, CBC, ANEU #### [address] [address] .Auto Diffon 11-17-2023 Basophil, Absolute 0.1 10 3/mcL Normal 0.0-0.2 [facility] ([place]) Comment on above: Performed By: #### D HEAS, INSLN, CPEP, ANKUR, HCV1, MADYSON, GEOVANNA, GGT, PTH #### [place] [id number] #### [id number], VIDH, 087649, GFR, MG, JESSICA, CMP, LIP, TSH, ADIFF, CRP, PHOS, CBC, ANEU #### [address] [address] Basophils/100 WBC (Bld) 1.1 % Normal 0.0-2.5 [facility] ([place]) Comment on above: Performed By: #### Amy RUSSAS, INSLN, CPEP, ANKUR, HCV1, MADYSON, GEOVANNA, GGT, PTH #### [place] [address] #### 556007, VIDH, 668220, GFR, MG, JESSICA, CMP, LIP, TSH, ADIFF, CRP, PHOS, CBC, ANEU #### [address] [address] Eosinophil, Absolute 0.0 10 3/mcL Normal 0.0-0.4 [facility] ([place]) Comment on above: Performed By: #### Amy BOWMAN, INSLN, CPEP, ANKUR, HCV1, MADYSON, GEOVANNA, GGT, PTH #### [place] [address] #### [id number], VIDH, 636656, GFR, MG, JESSICA, CMP, LIP, TSH, ADIFF, CRP, PHOS, CBC, ANEU #### [address] [address] Eosinophils/100 WBC (Bld) 0.0 % Normal 0.0-7.0 [facility] ([place]) Comment on above: Performed By: #### Amy RUSSAS, INSLN, CPEP, ANKUR, HCV1, MADYSON, GEOVANNA, GGT, PTH #### [place] [address] #### 454481, VIDH, 482551, GFR, MG, JESSICA, CMP, LIP, TSH, ADIFF, CRP, PHOS, CBC, ANEU #### [address] [address] Lymphocyte, Absolute 3.2 10 3/mcL Normal 0.8-3.9 [facility] ([place]) Comment on above: Performed By: #### Amy RUSSAS, INSLN, CPEP, ANKUR, HCV1, MADYSON, GEOVANNA, GGT, PTH #### [place] [address] #### [id number], VIDH, 086258, GFR, MG, JESSICA, CMP, LIP, TSH, ADIFF, CRP, PHOS, CBC, ANEU #### [address] [address] Lymphocytes/100 WBC (Bld) 23.4 % Normal 10.0-50.0 [facility] ([place]) Comment on above: Performed By: #### Amy RUSSAS, INSLN, CPEP, ANKUR, HCV1, MADYSON, GEOVANNA, GGT, PTH #### [place] [address] #### 803784, VIDH, 584731, GFR, MG, JESSICA, CMP, LIP, TSH, ADIFF, CRP, PHOS, CBC, ANEU #### [address] [address] Monocyte, Absolute 0.6 10 3/mcL Normal 0.2-1.0 [facility] ([place]) Comment on above: Performed By: #### Amy BOWMAN, INSLN, CPEP, ANKUR, HCV1, MADYSON, GEOVANNA, GGT, PTH #### [place] [address] #### 758636, VIDH, 200039, GFR, MG, JESSICA, CMP, LIP, TSH, ADIFF, CRP, PHOS, CBC, ANEU #### [address] [address] Monocytes/100 WBC (Bld) 4.6 % Normal 1.7-13.0 [facility] ([place]) Comment on above: Performed By: #### Amy RUSSAS, INSLN, CPEP, ANKUR, HCV1, MADYSON, GEOVANNA, GGT, PTH #### [place] [address] #### 275424, VIDH, 236830, GFR, MG, JESSICA, CMP, LIP, TSH, ADIFF, CRP, PHOS, CBC, ANEU #### [address] [address] Neutrophils/100 WBC (Bld) 70.9 % Normal 37.0-80.0 [facility] ([place]) Comment on above: Performed By: #### D HEAS, INSLN, CPEP, ANKUR, HCV1, MADYSON, GEOVANNA, GGT, PTH #### [address] [address] #### 052228, VIDH, 644884, GFR, MG, JESSICA, CMP, LIP, TSH, ADIFF, CRP, PHOS, CBC, ANEU #### [address] [address] .GFRon 11-17-2023 GFR Non- 59 ml/min/1.73sqm Normal [facility] ([place]) Comment on above: Result Comment: GFR Population mean for , Non- Americans Ages 20-29 = 116 mL/min/1.73 sq.m. Ages 30-39 = 107 mL/min/1.73 sq.m. Ages 40-49 = 99 mL/min/1.73 sq.m. Ages 50-59 = 93 mL/min/1.73 sq.m. Ages 60-69 = 85 mL/min/1.73 sq.m. Ages 70+ = 75 mL/min/1.73 sq.m. Chronic Kidney Disease: Less than 60 mL/min/1.73 square meters End Stage Renal Disease: Less than 15 mL/min/1.73 square meters Performed By: #### D HEAS, INSLN, CPEP, ANKUR, HCV1, MADYSON, GEOVANNA, GGT, PTH #### [place] [id number] #### [id number], VICANDICE, 870337, GFR, MG, JESSICA, CMP, LIP, TSH, ADIFF, CRP, PHOS, CBC, ANEU #### [address] [address] GFR 71 ml/min/1.73sqm Normal [facility] ([place]) Comment on above: Result Comment: GFR Population mean for , Non- Americans Ages 20-29 = 116 mL/min/1.73 sq.m. Ages 30-39 = 107 mL/min/1.73 sq.m. Ages 40-49 = 99 mL/min/1.73 sq.m. Ages 50-59 = 93 mL/min/1.73 sq.m. Ages 60-69 = 85 mL/min/1.73 sq.m. Ages 70+ = 75 mL/min/1.73 sq.m. Chronic Kidney Disease: Less than 60 mL/min/1.73 square meters End Stage Renal Disease: Less than 15 mL/min/1.73 square meters Performed By: #### D PETRONAAS, INSLN, CPEP, ANKUR, HCV1, MADYSON, GEOVANNA, GGT, PTH #### [place] [address] #### [id number], VIDH, 593445, GFR, MG, JESSICA, CMP, LIP, TSH, ADIFF, CRP, PHOS, CBC, ANEU #### [address] [address] .NEUABSon 11-17-2023 Neutrophil, Absolute 9.6 10 3/mcL High 2.9-6.2 [facility] ([place]) Comment on above: Performed By: #### Amy RUSSAS, INSLN, CPEP, ANKUR, HCV1, MADYSON, GEOVANNA, GGT, PTH #### [place] [address] #### 495613, VIDH, 080161, GFR, MG, JESSICA, CMP, LIP, TSH, ADIFF, CRP, PHOS, CBC, ANEU #### [address] [address] A1Con 11-17-2023 HbA1c (Bld) [Mass fraction] 8.4 % High 4.3-6.4 [facility] ([place]) Comment on above: Performed By: #### Amy RUSSAS, INSLN, CPEP, ANKUR, HCV1, MADYSON, GEOVANNA, GGT, PTH #### [place] [address] #### 237791, VIDH, 144383, GFR, MG, JESSICA, CMP, LIP, TSH, ADIFF, CRP, PHOS, CBC, ANEU #### [address] [address] CBCon 11-17-2023 Erythrocyte distribution width (RBC) [Ratio] 14.5 % Normal 11.5-14.5 [facility] ([place]) Comment on above: Performed By: #### D HEAS, INSLN, CPEP, ANKUR, HCV1, MADYSON, GEOVANNA, GGT, PTH #### [place] [address] #### 120108, VIDH, 039273, GFR, MG, JESSICA, CMP, LIP, TSH, ADIFF, CRP, PHOS, CBC, ANEU #### [address] [address] Hematocrit (Bld) [Volume fraction] 44.8 % Normal 37.0-47.0 [facility] ([place]) Comment on above: Performed By: #### D PETRONAAS, INSLN, CPEP, ANKUR, HCV1, MADYSON, GEOVANNA, GGT, PTH #### [place] [address] #### 174951, VIDH, 919628, GFR, MG, JESSICA, CMP, LIP, TSH, ADIFF, CRP, PHOS, CBC, ANEU #### [address] [address] Hgb 15.4 G/dL Normal 12.0-16.0 [facility] ([place]) Comment on above: Performed By: #### D PETRONAAS, INSLN, CPEP, ANKUR, HCV1, MADYSON, GEOVANNA, GGT, PTH #### [place] [address] #### 420961, VIDH, 428564, GFR, MG, JESSICA, CMP, LIP, TSH, ADIFF, CRP, PHOS, CBC, ANEU #### [address] [address] MCH (RBC) [Entitic mass] 29.6 pg Normal 27.0-31.2 [facility] ([place]) Comment on above: Performed By: #### D HEAS, INSLN, CPEP, ANKUR, HCV1, MADYSON, GEOVANNA, GGT, PTH #### [place] [address] #### 282231, VIDH, 745058, GFR, MG, JESSICA, CMP, LIP, TSH, ADIFF, CRP, PHOS, CBC, ANEU #### [address] [address] MCHC 34.3 G/dL Normal 33.0-37.0 [facility] ([place]) Comment on above: Performed By: #### D HEAS, INSLN, CPEP, ANKUR, HCV1, MADYSON, GEOVANNA, GGT, PTH #### [address] [address] #### 343640, VIDH, 885872, GFR, MG, JESSICA, CMP, LIP, TSH, ADIFF, CRP, PHOS, CBC, ANEU #### [address] [address] MCV (RBC) [Entitic vol] 86.3 fL Normal 80.0-94.0 A [facility] ([place]) Comment on above: Performed By: #### Amy RUSSAS, INSLN, CPEP, ANKUR, HCV1, MADYSON, GEOVANNA, GGT, PTH #### [place] [address] #### 961536, VIDH, 363844, GFR, MG, JESSICA, CMP, LIP, TSH, ADIFF, CRP, PHOS, CBC, ANEU #### [address] [address] Platelet 332 10 3/mcL Normal 130-400 [facility] ([place]) Comment on above: Performed By: #### Amy RUSSAS, INSLN, CPEP, ANKUR, HCV1, MADYSON, GEOVANNA, GGT, PTH #### [place] [address] #### 361110, VIDH, 532521, GFR, MG, JESSICA, CMP, LIP, TSH, ADIFF, CRP, PHOS, CBC, ANEU #### [address] [address] Platelet mean volume (Bld) [Entitic vol] 7.8 fL Normal 7.4-10.4 [facility] ([place]) Comment on above: Performed By: #### D HEAS, INSLN, CPEP, ANKUR, HCV1, MADYSON, GEOVANNA, GGT, PTH #### [address] [address] #### 991169, VIDH, 039577, GFR, MG, JESSICA, CMP, LIP, TSH, ADIFF, CRP, PHOS, CBC, ANEU #### [address] [address] RBC 5.19 10 6/mcL Normal 4.20-5.40 [facility] ([place]) Comment on above: Performed By: #### D HEAS, INSLN, CPEP, ANKUR, HCV1, MADYSON, GEOVANNA, GGT, PTH #### [address] [address] #### 279476, VIDH, 683501, GFR, MG, JESSICA, CMP, LIP, TSH, ADIFF, CRP, PHOS, CBC, ANEU #### [address] [address] WBC 13.5 10 3/mcL High 4.6-10.8 [facility] ([place]) Comment on above: Performed By: #### D HEAS, INSLN, CPEP, ANKUR, HCV1, MADYSON, GEOVANNA, GGT, PTH #### [address] [address] #### 224038, VIDH, 348736, GFR, MG, JESSICA, CMP, LIP, TSH, ADIFF, CRP, PHOS, CBC, ANEU #### [address] [address] CMPon 11-17-2023 Albumin Level 3.9 G/dL Normal 3.4-4.8 [facility] ([place]) Comment on above: Performed By: #### D HEAS, INSLN, CPEP, ANKUR, HCV1, MADYSON, GEOVANNA, GGT, PTH #### [place] [address] #### 842723, VIDH, 407838, GFR, MG, JESSICA, CMP, LIP, TSH, ADIFF, CRP, PHOS, CBC, ANEU #### [address] [address] Albumin/Globulin [Mass ratio] 0.9 {ratio} Low 1.1-2.5 [facility] ([place]) Comment on above: Performed By: #### D HEAS, INSLN, CPEP, ANKUR, HCV1, MADYSON, GEOVANNA, GGT, PTH #### [place] [address] #### 832683, VIDH, 516792, GFR, MG, JESSICA, CMP, LIP, TSH, ADIFF, CRP, PHOS, CBC, ANEU #### [address] [address] ALP [Catalytic activity/Vol] 55 U/L Normal 40-135 [facility] ([place]) Comment on above: Performed By: #### D HEAS, INSLN, CPEP, ANKUR, HCV1, MADYSON, GEOVANNA, GGT, PTH #### [place] [address] #### 830454, VIDH, 229987, GFR, MG, EJSSICA, CMP, LIP, TSH, ADIFF, CRP, PHOS, CBC, ANEU #### [address] [address] ALT [Catalytic activity/Vol] 23 U/L Normal 14-59 [facility] ([place]) Comment on above: Performed By: #### D HEAS, INSLN, CPEP, ANKUR, HCV1, MADYSON, GEOVANNA, GGT, PTH #### [place] [address] #### 786682, VIDH, 082707, GFR, MG, JESSICA, CMP, LIP, TSH, ADIFF, CRP, PHOS, CBC, ANEU #### [address] [address] AST [Catalytic activity/Vol] 15 U/L Normal 10-40 [facility] ([place]) Comment on above: Performed By: #### D HEAS, INSLN, CPEP, ANKUR, HCV1, MADYSON, GEOVANNA, GGT, PTH #### [place] [address] #### 328746, VIDH, 716585, GFR, MG, JESSICA, CMP, LIP, TSH, ADIFF, CRP, PHOS, CBC, ANEU #### [address] [address] Bili Total 0.4 mg/dL Normal 0.2-1.0 [facility] ([place]) Comment on above: Result Comment: Use of this assay is not recommended for patients undergoing treatment with eltrombopag due to the potential for falsely elevated results. Performed By: #### D HEAS, INSLN, CPEP, ANKUR, HCV1, MADYSON, GEOVANNA, GGT, PTH #### [place] [address] #### 591545, VIDH, 316797, GFR, MG, JESSICA, CMP, LIP, TSH, ADIFF, CRP, PHOS, CBC, ANEU #### [address] [address] BUN/Creatinine Ratio 29 ratio High 7-27 [facility] ([place]) Comment on above: Performed By: #### D HEAS, INSLN, CPEP, ANKUR, HCV1, MADYSON, GEOVANNA, GGT, PTH #### [place] [address] #### 374271, VIDH, 746767, GFR, MG, JESSICA, CMP, LIP, TSH, ADIFF, CRP, PHOS, CBC, ANEU #### [address] [address] Calcium [Mass/Vol] 9.3 mg/dL Normal 8.4-10.2 [facility] ([place]) Comment on above: Performed By: #### D HEAS, INSLN, CPEP, ANKUR, HCV1, MADYSON, GEOVANNA, GGT, PTH #### [place] [address] #### 950545, VIDH, 578529, GFR, MG, JESSICA, CMP, LIP, TSH, ADIFF, CRP, PHOS, CBC, ANEU #### [address] [address] Chloride [Moles/Vol] 102 mmol/L Normal 98-107 [facility] ([place]) Comment on above: Performed By: #### D HEAS, INSLN, CPEP, ANKUR, HCV1, MADYSON, GEOVANNA, GGT, PTH #### [address] [address] #### 712431, VIDH, 533574, GFR, MG, JESSICA, CMP, LIP, TSH, ADIFF, CRP, PHOS, CBC, ANEU #### [address] [address] CO2 [Moles/Vol] 26 mmol/L Normal 23-31 [facility] ([place]) Comment on above: Performed By: #### D HEAS, INSLN, CPEP, ANKUR, HCV1, MADYSON, GEOVANNA, GGT, PTH #### [address] [address] #### [id number], VIDH, 536855, GFR, MG, JESSICA, CMP, LIP, TSH, ADIFF, CRP, PHOS, CBC, ANEU #### [address] [address] Creatinine [Mass/Vol] 0.93 mg/dL Normal 0.55-1.02 [facility] ([place]) Comment on above: Performed By: #### D PETRONAAS, INSLN, CPEP, ANKUR, HCV1, MADYSON, GEOVANNA, GGT, PTH #### [address] [address] #### [id number], VIDH, [id number], GFR, MG, JESSICA, CMP, LIP, TSH, ADIFF, CRP, PHOS, CBC, ANEU #### [address] [address] Electrolyte Balance 11.0 mEq/L Normal 4.0-15.0 [facility] ([place]) Comment on above: Performed By: #### D HEAS, INSLN, CPEP, ANKUR, HCV1, MADYSON, GEOVANNA, GGT, PTH #### [address] [address] #### [id number], VIDH, 700254, GFR, MG, JESSICA, CMP, LIP, TSH, ADIFF, CRP, PHOS, CBC, ANEU #### [address] [address] Globulin 4.5 G/dL Normal [facility] ([place]) Comment on above: Performed By: #### Amy RUSSAS, INSLN, CPEP, ANKUR, HCV1, MADYSON, GEOVANNA, GGT, PTH #### Amanda [place] [address] #### [id number], VIDH, 719810, GFR, MG, JESSICA, CMP, LIP, TSH, ADIFF, CRP, PHOS, CBC, ANEU #### [address] [address] Glucose [Mass/Vol] 179 mg/dL High 83-110 [facility] ([place]) Comment on above: Performed By: #### Amy BOWMAN, INSLN, CPEP, ANKUR, HCV1, MADYSON, GEOVANNA, GGT, PTH #### [place] [address] #### 490918, VIDH, 284774, GFR, MG, JESSICA, CMP, LIP, TSH, ADIFF, CRP, PHOS, CBC, ANEU #### [address] [address] Potassium [Moles/Vol] 5.1 mmol/L Normal 3.5-5.1 [facility] ([place]) Comment on above: Performed By: #### Amy RUSSAS, INSLN, CPEP, ANKUR, HCV1, MADYSON, GEOVANNA, GGT, PTH #### [place] [address] #### 987211, VIDH, 755748, GFR, MG, JESSICA, CMP, LIP, TSH, ADIFF, CRP, PHOS, CBC, ANEU #### [address] [address] Sodium [Moles/Vol] 139 mmol/L Normal 136-145 [facility] ([place]) Comment on above: Performed By: #### Amy RUSSAS, INSLN, CPEP, ANKUR, HCV1, MADYSON, GEOVANNA, GGT, PTH #### [place] [address] #### 660864, VIDH, 080559, GFR, MG, JESSICA, CMP, LIP, TSH, ADIFF, CRP, PHOS, CBC, ANEU #### [address] [address] Total Protein 8.4 G/dL High 6.4-8.2 [facility] ([place]) Comment on above: Performed By: #### Amy RUSSAS, INSLN, CPEP, ANKUR, HCV1, MADYSON, GEOVANNA, GGT, PTH #### [place] [address] #### 749403, VIDH, 267218, GFR, MG, JESSICA, CMP, LIP, TSH, ADIFF, CRP, PHOS, CBC, ANEU #### [address] [address] Urea nitrogen [Mass/Vol] 27 mg/dL High 7-18 [facility] ([place]) Comment on above: Performed By: #### Amy BOWMAN, INSLN, CPEP, ANKUR, HCV1, MADYSON, GEOVANNA, GGT, PTH #### [place] [address] #### 419044, VIDH, 522248, GFR, MG, JESSICA, CMP, LIP, TSH, ADIFF, CRP, PHOS, CBC, ANEU #### [address] [address] FT3on 11-17-2023 Free T3 [Mass/Vol] 2.65 pg/mL Normal 2.30-4.00 [facility] ([place]) Comment on above: Performed By: #### Amy RUSSAS, INSLN, CPEP, ANKUR, HCV1, MADYSON, GEOVANNA, GGT, PTH #### [place] [address] #### 869608, VIDH, 180357, GFR, MG, JESSICA, CMP, LIP, TSH, ADIFF, CRP, PHOS, CBC, ANEU #### [address] [address] FT4on 11-17-2023 Free T4 [Mass/Vol] 1.25 ng/dL Normal 0.76-1.46 [facility] ([place]) Comment on above: Performed By: #### D HEAS, INSLN, CPEP, ANKUR, HCV1, MADYSON, GEOVANNA, GGT, PTH #### [place] [address] [place] [address] #### 793273, VIDH, 872170, GFR, MG, JESSICA, CMP, LIP, TSH, ADIFF, CRP, PHOS, CBC, ANEU #### [place] [address]072 [place], [place] [address] LABORATORYOrdered By: SYSTEM SYSTEM on 11-17-2023 Free T3 [Mass/Vol] 2.65 pg/mL Normal 2.30 - 4. 00 pg/mL AO ADM SS Free T4 [Mass/Vol] 1.25 ng/dL Normal 0.76 - 1. 46 ng/dL AO ADM SS TPO Ab IA Qn 53 unit/mL Normal 0 - 60 unit/mL AH ADM SS Comment on above: Interpretive Data: * *Note - New Reference Range in effect 20 TSH Qn 0.88 m[IU]/L Normal 0.36 - 3.74 mcIU/mL AO ADM SS 25-hydroxyvitamin D3 [Mass/Vol] 38.4 ng/mL Invalid Interpretation Code AO ADM SS Comment on above: Interpretive Data: I nterpretive Values Based on Total 25(OH) Vitamin D: Deficient <20 ng/mL Insufficient 20 - <30 ng/mL Sufficient 30-100 ng/mL Albumin BCP dye [Mass/Vol] 3.9 G/dL Normal 3.4 - 4.8 G/dL AO ADM SS Albumin/Globulin [Mass ratio] 0.9 {ratio} Low 1.1 - 2.5 ratio AO ADM SS ALP [Catalytic activity/Vol] 55 U/L Normal 40 - 135 U/L AO ADM SS ALT With P-5'-P [Catalytic activity/Vol] 23 U/L Normal 14 - 59 U/L AO ADM SS AST With P-5'-P [Catalytic activity/Vol] 15 U/L Normal 10 - 40 U/L AO ADM SS Basophil, Absolute 0.1 103/mcL Normal 0.0 - 0.2 10^3/mcL AO Workflow SS Basophils/100 WBC (Bld) 1.1 % Normal 0.0 - 2.5 % AO Workflow SS Bilirubin [Mass/Vol] 0.4 mg/dL Normal 0.2 - 1 .0 mg/dL AO ADM SS Comment on above: Interpretive Data: U se of this assay is not recommended for patients undergoing treatment with eltrombopag due to the potential for falsely elevated results. Calcium [Mass/Vol] 9.3 mg/dL Normal 8.4 - 10. 2 mg/dL AO ADM SS Chloride [Moles/Vol] 102 mmol/L Normal 98 - 10 7 mmol/L AO ADM SS CO2 [Moles/Vol] 26 mmol/L Normal 23 - 31 mmol/L AO ADM SS Creatinine [Mass/Vol] 0.93 mg/dL Normal 0.55 - 1.02 mg/dL AO ADM SS Electrolyte Balance 11.0 mEq/L Normal 4.0 - 15 .0 mEq/L AO ADM SS Eosinophil, Absolute 0.0 103/mcL Normal 0.0 - 0 .4 10^3/mcL AO Workflow SS Eosinophils/100 WBC (Bld) 0.0 % Normal 0.0 - 7.0 % AO Workflow SS Erythrocyte distribution width (RBC) [Ratio] 14.5 % Normal 11.5 - 14.5 % AO Workflow SS GFR/1.73 sq M.predicted among blacks MDRD (S/P/Bld) [Vol rate/Area] 71 ml/min/1.73sqm Invalid Interpretation Code AO Chemistry S Comment on above: Interpretive Data: GFR Population mean for , Non- Americans Ages 20-29 = 116 mL/min/1.73 sq.m. Ages 30-39 = 107 mL/min/1.73 sq.m. Ages 40-49 = 99 mL/min/1.73 sq.m. Ages 50-59 = 93 mL/min/1.73 sq.m. Ages 60-69 = 85 mL/min/1.73 sq.m. Ages 70+ = 75 mL/min/1.73 sq.m. Chronic Kidney Disease: Less than 60 mL/min/1.73 square meters End Stage Renal Disease: Less than 15 mL/min/1.73 square meters GFR/1.73 sq M.predicted among non-blacks MDRD (S/P/Bld) [Vol rate/Area] 59 ml/min/1.73sqm Invalid Interpretation Code AO Chemistry S Comment on above: Interpretive Data: GFR Population mean for , Non- Americans Ages 20-29 = 116 mL/min/1.73 sq.m. Ages 30-39 = 107 mL/min/1.73 sq.m. Ages 40-49 = 99 mL/min/1.73 sq.m. Ages 50-59 = 93 mL/min/1.73 sq.m. Ages 60-69 = 85 mL/min/1.73 sq.m. Ages 70+ = 75 mL/min/1.73 sq.m. Chronic Kidney Disease: Less than 60 mL/min/1.73 square meters End Stage Renal Disease: Less than 15 mL/min/1.73 square meters Globulin 4.5 G/dL Invalid Interpretation Code AO ADM SS Glucose [Mass/Vol] 179 mg/dL High 83 - 110 mg/dL AO ADM SS HbA1c (Bld) [Mass fraction] 8.4 % High 4.3 - 6.4 % AO ADM SS Hematocrit (Bld) [Volume fraction] 44.8 % Normal 37.0 - 47.0 % AO Workflow SS Hemoglobin (Bld) [Mass/Vol] 15.4 G/dL Normal 12.0 - 16.0 G/dL AO Workflow SS Lymphocyte, Absolute 3.2 103/mcL Normal 0.8 - 3 .9 10^3/mcL AO Workflow SS Lymphocytes/100 WBC (Bld) 23.4 % Normal 10.0 - 50.0 % AO Workflow SS Magnesium [Mass/Vol] 1.6 mg/dL Low 1.8 - 2 .4 mg/dL AO ADM SS MCH (RBC) [Entitic mass] 29.6 pg Normal 27. 0 - 31.2 pg AO Workflow SS MCHC 34.3 G/dL Normal 33.0 - 37.0 G/dL AO Workflow SS MCV (RBC) [Entitic vol] 86.3 fL Normal 80.0 - 94.0 fL AO Workflow SS Monocyte, Absolute 0.6 103/mcL Normal 0.2 - 1.0 10^3/mcL AO Workflow SS Monocytes/100 WBC (Bld) 4.6 % Normal 1.7 - 13.0 % AO Workflow SS Neutrophil, Absolute 9.6 103/mcL High 2.9 - 6 .2 10^3/mcL AO Workflow SS Neutrophils/100 WBC (Bld) 70.9 % Normal 37.0 - 80.0 % AO Workflow SS Parathyrin.intact [Mass/Vol] 17.0 pg/mL Low 18.5 - 88.0 pg/mL AH ADM SS Platelet mean volume (Bld) [Entitic vol] 7.8 fL Normal 7.4 - 10.4 fL AO Workflow SS Platelets (Bld) [#/Vol] 332 103/mcL Normal 130 - 400 10^3/mcL AO Workflow SS Potassium [Moles/Vol] 5.1 mmol/L Normal 3.5 - 5.1 mmol/L AO ADM SS Protein [Mass/Vol] 8.4 G/dL High 6.4 - 8.2 G/dL AO ADM SS RBC (Bld) [#/Vol] 5.19 106/mcL Normal 4.20 - 5.4 0 10^6/mcL AO Workflow SS Sodium [Moles/Vol] 139 mmol/L Normal 136 - 145 mmol/L AO ADM SS Urea nitrogen [Mass/Vol] 27 mg/dL High 7 - 18 mg/d L AO ADM SS Urea nitrogen/Creatinine [Mass ratio] 29 ratio High 7 - 27 ratio AO ADM SS WBC (Bld) [#/Vol] 13.5 103/mcL High 4.6 - 10.8 10^3/mcL AO Workflow SS LABORATORYOrdered By: Shalom Felder on 11-17-2023 Cholesterol [Mass/Vol] 139 mg/dL Normal 0 - 200 mg/dL AO ADM SS Comment on above: Interpretive Data: C holesterol Reference Interval: Less than 200 Desirable 200-239 Borderline high risk 240 and above High risk Cholesterol in HDL [Mass/Vol] 49 mg/dL Normal 40 - 60 mg/dL AO ADM SS Cholesterol in LDL [Mass/Vol] 69 mg/dL Normal 0 - 130 mg/dL AO ADM SS Triglyceride [Mass/Vol] 104 mg/dL Normal 0 - 150 mg/d L AO ADM SS Comment on above: Interpretive Data: T riglyceride Reference Interval: Less than 150 Normal 150-199 Borderline high risk 200-499 High risk 500 or higher Very high risk LABORATORYOrdered By: Cohuman P CONTRIBUTOR_SYSTEM on 11-17-2023 Renin Activity (LC) 1.174 ng/mL/hr Invalid Interpretation Code 0.167-5.380 AO Sendouts SS Comment on above: Result Comment: This test was developed and its performance characteristics determined by [employer]. It has not been cleared or approved by the Food and Drug Administration. Performed At: [address] [id number] Rayshawn Paul MD Ph:[phone] LIPIDon 11-17-2023 Cholesterol [Mass/Vol] 139 mg/dL Normal 0-200 [facility] ([place]) Comment on above: Result Comment: Chol esterol Reference Interval: Less than 200 Desirable 200-239 Borderline high risk 240 and above High risk Performed By: #### D HEAS, INSLN, CPEP, ANKUR, HCV1, MADYSON, GEOVANNA, GGT, PTH #### [place] [address] #### 028068, VIDH, 323385, GFR, MG, JESSICA, CMP, LIP, TSH, ADIFF, CRP, PHOS, CBC, ANEU #### [address] [address] Cholesterol in HDL [Mass/Vol] 49 mg/dL Normal 40-60 [facility] ([place]) Comment on above: Performed By: #### D HEAS, INSLN, CPEP, ANKUR, HCV1, MADYSON, GEOVANNA, GGT, PTH #### [place] [address] #### 550584, VIDH, 046413, GFR, MG, JESSICA, CMP, LIP, TSH, ADIFF, CRP, PHOS, CBC, ANEU #### [address] [address] Cholesterol in LDL [Mass/Vol] 69 mg/dL Normal 0-130 [facility] ([place]) Comment on above: Performed By: #### D HEAS, INSLN, CPEP, ANKUR, HCV1, MADYSON, GEOVANNA, GGT, PTH #### [place] [address] #### 787823, VIDH, 156351, GFR, MG, JESSICA, CMP, LIP, TSH, ADIFF, CRP, PHOS, CBC, ANEU #### [address] [address] Triglyceride [Mass/Vol] 104 mg/dL Normal 0-150 A [facility] ([place]) Comment on above: Result Comment: Trig lyceride Reference Interval: Less than 150 Normal 150-199 Borderline high risk 200-499 High risk 500 or higher Very high risk Performed By: #### D PETRONAAS, INSLN, CPEP, ANKUR, HCV1, MADYSON, GEOVANNA, GGT, PTH #### [place] [address] #### 653651, JEANETTE, 842548, GFR, MG, JESSICA, CMP, LIP, TSH, ADIFF, CRP, PHOS, CBC, ANEU #### [address] [address] MGon 11-17-2023 Magnesium [Mass/Vol] 1.6 mg/dL Low 1.8-2.4 [facility] ([place]) Comment on above: Performed By: #### Amy BOWMAN, INSLN, CPEP, ANKUR, HCV1, MADYSON, GEOVANNA, GGT, PTH #### [place] [address] #### 882877, JEANETTE, 442810, GFR, MG, JESSICA, CMP, LIP, TSH, ADIFF, CRP, PHOS, CBC, ANEU #### [address] [address] PTHon 11-17-2023 PTH, Intact 17.0 pg/mL Low 18.5-88.0 [facility] ([place]) Comment on above: Performed By: #### Amy BOWMAN, INSLN, CPEP, ANKUR, HCV1, MADYSON, GEOVANNA, GGT, PTH #### [place] [address] #### 042144, JEANETTE, 529772, GFR, MG, JESSICA, CMP, LIP, TSH, ADIFF, CRP, PHOS, CBC, ANEU #### [address] [address] TSHon 11-17-2023 TSH Qn 0.88 m[IU]/L Normal 0.36-3.74 [facility] ([place]) Comment on above: Performed By: #### Amy RUSSAS, INSLN, CPEP, ANKUR, HCV1, MADYSON, GEOVANNA, GGT, PTH #### [place] [address] #### 794404, VIDH, 124802, GFR, MG, JESSICA, CMP, LIP, TSH, ADIFF, CRP, PHOS, CBC, ANEU #### [place] [id number] VIDHon 11-17-2023 Vit. D 25-Hydroxy 38.4 ng/mL Normal [facility] ([place]) Comment on above: Result Comment: Inte rpretive Values Based on Total 25(OH) Vitamin D: Deficient <20 ng/mL Insufficient 20 - <30 ng/mL Sufficient 30-100 ng/mL Performed By: #### D HEAS, INSLN, CPEP, ANKUR, HCV1, MADYSON, GEOVANNA, GGT, PTH #### [place] [address] #### 602774, VIDH, 089160, GFR, MG, JESSICA, CMP, LIP, TSH, ADIFF, CRP, PHOS, CBC, ANEU #### [place] [address] aTPOon 11-17-2023 anti-Thyroid Peroxidase 53 units/ml Normal 0-60 [facility] ([place]) Comment on above: Result Comment: No te - New Reference Range in effect 20 Performed By: #### D HEAS, INSLN, CPEP, ANKUR, HCV1, MADYSON, GEOVANNA, GGT, PTH #### [place] [address] #### 332519, VIDH, 401725, GFR, MG, JESSICA, CMP, LIP, TSH, ADIFF, CRP, PHOS, CBC, ANEU #### [address] [address] Blood type and Indirect anti body screen panel (Bld)on 11-07-2023 ABO group Nom (Bld) A [facility] Blood group antibody screen Ql Negative [facility] D Ag Ql (Bld) Positive [facility] Comment on above: 2nd ABO test require d. Order and Collect VERAB [facility] ABO group Nom (Bld) A Normal [facility] Comment on above: Order Comment: Patie nt admitted for surgery associated with significant blood loss OR per blood bank request. Performed By: #### 3 4532-2 #### YASMIN Loving ([id number]) [facility] ([facility]) [address] [place] [address] Blood group antibody screen Ql Negative [facility] Comment on above: Order Comment: Patie nt admitted for surgery associated with significant blood loss OR per blood bank request. Performed By: #### 3 4532-2 #### YASMIN Loving ([id number]) [facility] ([facility]) [address] [place] [address] D Ag Ql (Bld) Positive [facility] Comment on above: Order Comment: Patie nt admitted for surgery associated with significant blood loss OR per blood bank request. Result Comment: 2nd ABO test required. Order and Collect VERAB Performed By: #### 3 4532-2 #### YASMIN Loving ([id number]) [facility] ([facility]) [address] [place] [address] [place] FLUORO IMAGES NO CHARGEon 11-07-2023 FL FLUORO IMAGES NO CHARGE These images are not reportable by radiology and will not be interpreted by Radiologists. Normal [facility] Glucose Test strip manual (B ld) [Mass/Vol]on 11-07-2023 Glucose [Mass/Vol] 159 mg/dL High 74 - 99 mg/dL [facility] Interpretation and review of laboratory results Abnormal [facility] Glucose [Mass/Vol] 159 mg/dL High 74-99 [facility] Comment on above: Performed By: #### 3 4529-8 #### YASMIN Loving ([id number]) [facility] ([facility]) [address] [place] [address] Glucose [Mass/Vol] 162 mg/dL High 74 - 99 mg/dL [facility] Interpretation and review of laboratory results Abnormal [facility] Glucose [Mass/Vol] 162 mg/dL High 74-99 [facility] Comment on above: Performed By: #### 2 341-6 #### YASMIN Loving ([id number]) [facility] ([facility]) [address] [place] [address] Non-assistant county engineer cytology studyon Non-gynecological cytology method study Pathology report.total SEE COMMENT Non-gynecologic Cytology Case: [id number] Authorizing Provider: Braden Hopkins MD MPH Collected: 11/07/2023 1147 Ordering Location: [facility] Received: 11/07/2023 1953 [facility] OR Pathologist: Rashida Moncada MD Specimen: URETER WASH RIGHT, Right Ureter Fluid for cytology Path report.final diagnosis SEE COMMENT A. URETER WASH RIGHT - Right Ureter Fluid for cytology -- Rare clusters of atypical urothelial cells present; origin from urothelial neoplasm cannot be excluded. -- Please also see concurrent surgical biopsy report [id number]. Laboratory comment SEE COMMENT Slide(s) initially screened by KATJA HUIZAR at [address] [address] By the signature on this report, the individual or group listed as making the Final Interpretation/Diagn osis certifies that they have reviewed this case. RESIDENT REVIEW The microscopic description is reviewed with Jacklyn Salter MD (PGY1 resident). Path report.relevant Hx SEE COMMENT Pre-op diagnosis: Mass of ureter [N28.89] Path report.gross observation SEE COMMENT A. URETER WASH RIGHT. Received 2 ml colorless clear fluid without particles in sterile cup . Laboratory comment SEE COMMENT A1 Slides Only (No Block) A1-1 Pap Stain NGYN ThinPrep Normal [facility] Comment on above: Order Comment: The A PTT is no longer used for monitoring Unfractionated Heparin Therapy. For monitoring Heparin Therapy, use the Heparin Assay. Surgical pathology studyon 0 11-07-2023 Surgical pathology study Pathology report.total SEE COMMENT Surgical Pathology Case: [id number] Authorizing Provider: Braden Hopkins MD MPH Collected: 11/07/2023 1225 Ordering Location: [facility] Received: 11/08/2023 0145 [facility] OR Pathologist: Johny Nazario MD Specimen: URETER BIOPSY RIGHT, RIGHT UPPER TRACT TUMOR Path report.final diagnosis SEE COMMENT Ureter, right, biopsy: --Atypical urothelial proliferation (see note). Note: Microscopic examination reveals fragments of atypical urothelial proliferation, with significant inflammation. Overall, there are no cytologic high-grade changes appreciated. In some areas, there are no definitive fibrovascular cores present, reminiscent of reactive changes. In other areas, foci of minute papillary structures are present, and a low-grade neoplastic lesion cannot be excluded. Due to the difficulty of interpretation, this case was sent out for external consultation to Dr. Edgar Merino (Department of pathology, [facility]). The following comment reflects his opinion on this case: Interpretation of the findings is challenging due to the marked mixed inflammatory infiltrate seen within the subepithelial connective tissue. Many of these changes seen within the urothelium appear to be reactive, particularly on slide A1. 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 A full copy of the consultation report is kept on file in our department. This case was discussed with Dr. Braden Hopkins on 11/29/2023 at 5:19 PM. Laboratory comment By the signature on this report, the individual or group listed as making the Final Interpretation/Diagn osis certifies that they have reviewed this case. Path report.relevant Hx SEE COMMENT Pre-op diagnosis: Mass of ureter [N28.89] Path report.gross observation SEE COMMENT Received in formalin, labeled with the patient's name and hospital number, are multiple fragments of orellana, soft tissue aggregating to 2.0 x 1.3 x 0.2 cm. The specimen is submitted in toto in 2 cassettes. [facility] Comment on above: Order Comment: The A PTT is no longer used for monitoring Unfractionated Heparin Therapy. For monitoring Heparin Therapy, use the Heparin Assay. XR tomography Unspecified roland dy regionon 11-07-2023 These images are not reportable by radiology and will not be interpreted by Radiologists. IMAGING Bacteria identifiedon 2023 Bacteria identified Cx Nom (U) Test: Urine Culture Specimen Source: Clean Catch/Voided Specimen Type: Urine Specimen Date: 11/03/2023951 Result Date: 11/05/2023931 Result Status: Final result Abnormal: Yes Resulting Lab: [facility] [address] [place] [address] CULTURE >100,000 Escherichia coli (Abnormal) SUSCEPTIBILITY Escherichia coli METHOD MICROSCAN ------- AMPICILLIN <=8.000 mcg/mL Susceptible CEFAZOLIN <=2 mcg/mL Susceptible CEFAZOLIN (UNCOMPLICATED UTIS ONLY) <=2 mcg/mL Susceptible CIPROFLOXACIN >2.000 mcg/mL Resistant GENTAMICIN <=2.000 mcg/mL Susceptible NITROFURANTOIN <=32 mcg/mL Susceptible PIPERACILLIN/TAZOBAC FARLEY <=8.000 mcg/mL Susceptible TRIMETHOPRIM/SULFAME THOXAZOLE <=2/38 mcg/mL Susceptible Abnormal [facility] Comment on above: Performed By: #### 6 30-4 #### YASMIN Loving ([id number]) [facility] ([facility]) [address] [place], [place] [id number] Basic metabolic 2000 panelon 11-03-2023 Anion gap [Moles/Vol] 15 mmol/L Normal 10-20 [facility] Comment on above: Performed By: #### 2 4321-2 #### YASMIN Loving ([id number]) [facility] ([facility]) [address] [place] [address] Calcium [Mass/Vol] 9.9 mg/dL Normal 8.6-10.6 [facility] Comment on above: Performed By: #### 2 4321-2 #### YASMIN Loving ([id number]) [facility] ([facility]) [address] [place] [address] Chloride [Moles/Vol] 102 mmol/L Normal 98-107 [facility] Comment on above: Performed By: #### 2 4321-2 #### YASMIN Loving ([id number]) [facility] ([facility]) [address] [place] [address] CO2 [Moles/Vol] 27 mmol/L Normal 21-32 [facility] Comment on above: Performed By: #### 2 4321-2 #### YASMIN Loving ([id number]) [facility] ([facility]) [address] [place] [address] Creatinine [Mass/Vol] 0.77 mg/dL Normal 0.50-1.05 [facility] Comment on above: Performed By: #### 2 4321-2 #### YASMIN Loving ([id number]) [facility] ([facility]) [address] [place] [address] Glomerular filtration rate/1.73 sq M.predicted 80 mL/min/1.73m*2 Normal >60 [facility] Comment on above: Result Comment: Calc ulations of estimated GFR are performed using the 2020 CKD-EPI Study Refit equation without the race variable for the IDMS-Traceable creatinine methods. https://jasn.asnjournals.org/content/early//ASN.102 2724522 Performed By: #### 2 4321-2 #### YASMIN Loving ([id number]) [facility] ([facility]) [address] [place] [address] Glucose [Mass/Vol] 148 mg/dL High 74-99 [facility] Comment on above: Performed By: #### 2 4321-2 #### YASMIN Loving ([id number]) [facility] ([facility]) [address] [place] [address] Potassium [Moles/Vol] 4.8 mmol/L Normal 3.5-5.3 [facility] Comment on above: Performed By: #### 2 4321-2 #### YASMIN Loving ([id number]) [facility] ([facility]) [address] [place] [address] Sodium [Moles/Vol] 139 mmol/L Normal 136-145 [facility] Comment on above: Performed By: #### 2 4321-2 #### YASMIN Loving ([id number]) [facility] ([facility]) [address] [place] [address] Urea nitrogen [Mass/Vol] 28 mg/dL High 6-23 [facility] Comment on above: Performed By: #### 2 4321-2 #### YASMIN Loving ([id number]) [facility] ([facility]) [address] [place] [address] CBC panel Auto (Bld)on 11-02 Erythrocyte distribution width (RBC) [Ratio] 13.9 % Normal 11.5-14.5 [facility] Comment on above: Performed By: #### 5 8410-2 #### YASMIN Loving ([id number]) [facility] ([facility]) [address] [place] [address] Hematocrit (Bld) [Volume fraction] 46.8 % High 36.0-46.0 [facility] Comment on above: Performed By: #### 5 8410-2 #### YASMIN Loving ([id number]) [facility] ([facility]) [address] [place] [address] Hemoglobin (Bld) [Mass/Vol] 14.9 g/dL Normal 12.0-16.0 [facility] Comment on above: Performed By: #### 5 8410-2 #### YASMIN Loving ([id number]) [facility] ([facility]) [address] [place] [address] MCH (RBC) [Entitic mass] 28.5 pg Normal 26.0-34.0 [facility] Comment on above: Performed By: #### 5 8410-2 #### YASMIN Loving ([id number]) [facility] ([facility]) [address] [place] [address] MCHC (RBC) [Mass/Vol] 31.8 g/dL Low 32.0-36.0 [facility] Comment on above: Performed By: #### 5 8410-2 #### YASMIN Loving ([id number]) [facility] ([facility]) [address] [place] [address] MCV (RBC) [Entitic vol] 90 fL Normal 80-100 [facility] Comment on above: Performed By: #### 5 8410-2 #### YASMIN Loving ([id number]) [facility] ([facility]) [address] [place] [address] Nucleated RBC/100 WBC (Bld) [Ratio] 0.0 /100 WBCs Normal 0.0-0.0 [facility] Comment on above: Performed By: #### 5 8410-2 #### YASMIN Loving ([id number]) [facility] ([facility] [facility] [id number] [place] [address] 47076 Platelets (Bld) [#/Vol] 336 x10*3/uL Normal 150-450 [facility] Comment on above: Performed By: #### 5 8410-2 #### YASMIN Loving ([id number]) [facility] ([facility]) [address] [place] [address] 17139 RBC (Bld) [#/Vol] 5.23 x10*6/uL High 4.00-5.20 [facility] Comment on above: Performed By: #### 5 8410-2 #### YASMIN Loving ([id number]) [facility] ([facility]) [address] [place] [address] 99633 WBC (Bld) [#/Vol] 13.0 x10*3/uL High 4.4-11.3 [facility] Comment on above: Performed By: #### 5 8410-2 #### YASMIN Loving ([id number]) [facility] ([facility]) [address] [place] [address] 57661 ECG 12-LEADon 11-03-2023 ECG 12-LEAD Ventricular Rate 88 Atrial Rate 88 P-R Interval 130 QRS Duration 70 Q-T Interval 336 QTC Calculation(Bazett) 406 P [place] 53 R [place] 48 T [place] 53 QRS Count 15 Q Onset 225 P Onset 160 P Offset 208 T Offset 393 QTC Fredericia 381 Diagnosis Normal sinus rhythm with sinus arrhythmia Possible Left atrial enlargement Borderline ECG No previous ECGs available Confirmed by Je Smart ([id number]) on 11/09/2023 10:07:53 PM Normal [facility] HbA1c (Bld) [Mass fraction]o n 11-03-2023 Average glucose Estimated from glycated hemoglobin (Bld) [Mass/Vol] 197 mg/dL Normal Not Established [facility] Comment on above: Order Comment: Diagn osis of Diabetes-Adults Non-Diabetic: < or = 5.6% Increased risk for developing diabetes: 5.7-6.4% Diagnostic of diabetes: > or = 6.5% Monitoring of Diabetes Age (y)....................... Therapeutic Goal (%) Adults: >18.........................<7.0 Pediatrics: 13-18...................<7.5 Pediatrics: 7-12....................<8.0 Pediatrics: 0-6..................... 7.5-8.5 [place] [employer]. Diabetes Care 33(S1)Jun 2009 Performed By: #### 4 548-4 #### YASMIN Loving ([id number]) [facility] ([facility]) [address] [place] [address] Hemoglobin A1c/Hemoglobin.to tianna 11-03-2023 HbA1c (Bld) [Mass fraction] 8.5 % High see below [facility] Comment on above: Order Comment: Diagn osis of Diabetes-Adults Non-Diabetic: < or = 5.6% Increased risk for developing diabetes: 5.7-6.4% Diagnostic of diabetes: > or = 6.5% Monitoring of Diabetes Age (y)....................... Therapeutic Goal (%) Adults: >18.........................<7.0 Pediatrics: 13-18...................<7.5 Pediatrics: 7-12....................<8.0 Pediatrics: 0-6..................... 7.5-8.5 [place] [employer]. Diabetes Care 33(S1), Jun 2009 Performed By: #### 4 548-4 #### YASMIN Loving ([id number]) [facility] ([facility]) [address] [place] [address] PT and aPTT panel Coag (PPP) on 11-03-2023 aPTT Coag (PPP) [Time] 37 s Normal 27-38 [facility] Comment on above: Order Comment: The A PTT is no longer used for monitoring Unfractionated Heparin Therapy. For monitoring Heparin Therapy, use the Heparin Assay. Performed By: #### 3 4529-8 #### YASMIN Loving ([id number]) [facility] ([facility]) [id number] [place] [address] 28934 INR Coag (PPP) [Relative time] 1.1 Normal 0.9-1.1 [facility] Comment on above: Order Comment: The A PTT is no longer used for monitoring Unfractionated Heparin Therapy. For monitoring Heparin Therapy, use the Heparin Assay. Performed By: #### 3 4529-8 #### YASMIN Loving ([id number]) [facility] ([facility]) [id number] [place] [address] 19456 PT Coag (PPP) [Time] 12.4 s Normal 9.8-12.8 [facility] Comment on above: Order Comment: The A PTT is no longer used for monitoring Unfractionated Heparin Therapy. For monitoring Heparin Therapy, use the Heparin Assay. Performed By: #### 3 4529-8 #### YASMIN Loving ([id number]) [facility] ([facility]) [address] [place] [address] 42010 Urinalysis complete W Reflex Culture panel (U)on 11-03-2023 Appearance (U) Turbid Normal Clear [facility] Comment on above: Performed By: #### 5 8077-9 #### YASMIN MCKENZIE L ([id number]) [facility] ([facility]) [address] [place] [address] 43584 Bilirubin (U) [Mass/Vol] Negative Normal NEGATIVE [facility] Comment on above: Performed By: #### 5 8077-9 #### YASMIN MCKENZIE L ([id number]) [facility] ([facility]) [address] [place] [address] 58501 Color (U) Light-Yellow Normal Light-Yellow, Yellow, Dark-Yellow [facility] Comment on above: Performed By: #### 5 8077-9 #### YASMIN MCKENZIE L ([id number]) [facility] ([facility]) [address] [place] [address] 41953 Glucose Auto test strip (U) [Mass/Vol] Normal Normal Normal [facility] Comment on above: Performed By: #### 5 8077-9 #### YASMIN MCKENZIE L ([id number]) [facility] ([facility]) [address] [place] [address] 75091 Ketones (U) [Mass/Vol] Negative Normal NEGATIVE Un [facility] Comment on above: Performed By: #### 5 8077-9 #### YASMIN Loving ([id number]) [facility] ([facility]) [address] [place] [address] 84998 Leukocyte esterase Auto test strip Ql (U) 500 [place]/???L Abnormal NEGATIVE [facility] Comment on above: Performed By: #### 5 8077-9 #### YASMIN MCKENZIE L ([id number]) [facility] ([facility]) [address] [place] [address] 15023 Nitrite Auto test strip Ql (U) 1+ Abnormal NEGATIVE [facility] Comment on above: Performed By: #### 5 8077-9 #### YASMIN Loving ([id number]) [facility] ([facility]) [address] [place] [address] 52588 pH (U) 6.0 [pH] Normal 5.0, 5.5, 6.0, 6.5, 7.0, 7.5, 8.0 [facility] Comment on above: Performed By: #### 5 8077-9 #### YASMIN Loving ([id number]) [facility] ([facility]) [address] [place] [address] 21175 Protein (U) [Mass/Vol] 30 (1+) Abnormal NEGAT TOÑA, 10 (TRACE), 20 (TRACE) [facility] Comment on above: Performed By: #### 5 8077-9 #### YASMIN Loving ([id number]) [facility] ([facility]) [address] [place] [address] 38441 RBC (U) [#/Vol] 0.2 (2+) Abnormal NEGATIVE [facility] Comment on above: Performed By: #### 5 8077-9 #### YASMIN Loving ([id number]) [facility] ([facility]) [address] [place] [address] 87163 Specific gravity (U) [Rel density] 1.014 Normal 1.005-1.035 [facility] Comment on above: Performed By: #### 5 8077-9 #### YASMIN Loving ([id number]) [facility] ([facility]) [address] [place] [address] 19899 Urobilinogen (U) [Mass/Vol] Normal Normal Normal [facility] Comment on above: Performed By: #### 5 8077-9 #### YASMIN Loving ([id number]) [facility] ([facility]) [address] [place] [address] 08998 Urinalysis microscopic panel Auto Ql (U)on 11-03-2023 Bacteria Auto (Urine sed) [#/Area] 1+ /HPF Abnormal NONE SEEN [facility] Comment on above: Performed By: #### 5 3315-8 #### YASMIN Loving ([id number]) [facility] ([facility]) [address] [place] [address] 18975 Epithelial cells.squamous Auto (Urine sed) [#/Area] 1-9 (SPARSE) Normal Reference range not established. [facility] Comment on above: Performed By: #### 5 3315-8 #### YASMIN Loving ([id number]) [facility] ([facility]) [id number] [place] [address] 54261 RBC Auto (Urine sed) [#/Area] >20 Abnormal NONE, 1-2, 3-5 [facility] Comment on above: Performed By: #### 5 3315-8 #### YASMIN Loving ([id number]) [facility] ([facility]) [address] [place] [address] 03220 WBC Auto (Urine sed) [#/Area] >50 Abnormal 1-5, NONE [facility] Comment on above: Performed By: #### 5 3315-8 #### YASMIN Loving ([id number]) [facility] ([facility]) [address] [place] [address] 05192 LABORATORYOrdered By: SYSTEM SYSTEM on 09-22-2023 Magnesium [Mass/Vol] 1.5 mg/dL Low 1.8 - 2 .4 mg/dL AO ADM SS MGon 09-22-2023 Magnesium [Mass/Vol] 1.5 mg/dL Low 1.8-2.4 [facility] ([place]) Comment on above: Performed By: #### D HEAS, INSLN, CPEP, ANKUR, HCV1, MADYSON, GEOVANNA, GGT, PTH #### [address] [address] #### [id number], VIDH, 286570, GFR, MG, JESSICA, CMP, LIP, TSH, ADIFF, CRP, PHOS, CBC, ANEU #### [address] [address] Basic Metabolic Profile (BMP )on 09-13-2023 BUN/CRE 23.0 RATIO High 10-20 [facility] Comment on above: Performed By: #### L 300.3900, L100.0500, L300.4310, L500.2500, L501.9985, L500.3400 #### [facility] [address] [place], [address] CA,Total 9.1 mg/dL Normal 8.5-10.1 [facility] Comment on above: Performed By: #### L 300.3900, L100.0500, L300.4310, L500.2500, L501.9985, L500.3400 #### [facility] [address] [place], [address] Chloride [Moles/Vol] 100 mmol/L Normal 98-[address] [facility] Comment on above: Performed By: #### L 300.3900, L100.0500, L300.4310, L500.2500, L501.9985, L500.3400 #### [facility] [address] [place], [address] CO2 [Moles/Vol] 26.0 mmol/L Normal 21.0-32.0 [facility] Comment on above: Performed By: #### L 300.3900, L100.0500, L300.4310, L500.2500, L501.9985, L500.3400 #### [facility] [address] [place], [address] Creatinine [Mass/Vol] 0.96 mg/dL Normal 0.55-1.02 [facility] Comment on above: Result Comment: The validity of the calculated GFR GFRAA in patients over 70 years has not been determined. Clinical correlation is essential. Performed By: #### L 300.3900, L100.0500, L300.4310, L500.2500, L501.9985, L500.3400 #### [facility] [address] [place], [address] EST GFR - AA 73 mL/min Normal >60 [facility] Comment on above: Result Comment: Afri can [place]ian GFR Calc Performed By: #### L 300.3900, L100.0500, L300.4310, L500.2500, L501.9985, L500.3400 #### [facility] [address] [place], [address] GAP 10 Normal 5-15 [facility] Comment on above: Performed By: #### L 300.3900, L100.0500, L300.4310, L500.2500, L501.9985, L500.3400 #### [facility] [address] [place], [address] GFR/1.73 sq M.predicted among non-blacks MDRD (S/P/Bld) [Vol rate/Area] 60 mL/min/{1.73_m2} Normal >60 [facility] Comment on above: Result Comment: Non- GFR Calc Performed By: #### L 300.3900, L100.0500, L300.4310, L500.2500, L501.9985, L500.3400 #### [facility] [address] [place], [address] Glucose [Mass/Vol] 190 mg/dL High 74-106 [facility] Comment on above: Result Comment: Fast ing Glucose result greater than or equal to 126 mg/dL suggests DIABETES MELLITUS per A.D.A. criteria. Performed By: #### L 300.3900, L100.0500, L300.4310, L500.2500, L501.9985, L500.3400 #### [facility] [address] [place], [address] Potassium [Moles/Vol] 4.6 mmol/L Normal 3.5-5.1 [facility] Comment on above: Performed By: #### L 300.3900, L100.0500, L300.4310, L500.2500, L501.9985, L500.3400 #### [facility] [address] [place], [address] Sodium [Moles/Vol] 136 mmol/L Normal 136-145 [facility] Comment on above: Performed By: #### L 300.3900, L100.0500, L300.4310, L500.2500, L501.9985, L500.3400 #### [facility] [address] [place], [address] Urea nitrogen [Mass/Vol] 22 mg/dL High 7-18 [facility] Comment on above: Performed By: #### L 300.3900, L100.0500, L300.4310, L500.2500, L501.9985, L500.3400 #### [facility] [address] [place], [address] CBC-Complete Blood Cnt No Di ffon 09-13-2023 Erythrocyte distribution width (RBC) [Ratio] 13.3 % Normal 11.6-14.6 [facility] Comment on above: Performed By: #### L 300.3900, L100.0500, L300.4310, L500.2500, L501.9985, L500.3400 #### [facility] [address] [place], [address] Hematocrit (Bld) [Volume fraction] 40.6 % Normal 37-47 [facility] Comment on above: Performed By: #### L 300.3900, L100.0500, L300.4310, L500.2500, L501.9985, L500.3400 #### [facility] [address] [place], [address] Hemoglobin (Bld) [Mass/Vol] 13.0 g/dL Normal 12.0-15.0 [facility] Comment on above: Performed By: #### L 300.3900, L100.0500, L300.4310, L500.2500, L501.9985, L500.3400 #### [facility] [address] [place], [address] MCH (RBC) [Entitic mass] 29.3 pg Normal 27.0-32.0 [facility] Comment on above: Performed By: #### L 300.3900, L100.0500, L300.4310, L500.2500, L501.9985, L500.3400 #### [facility] [address] [place], [address] MCHC (RBC) [Mass/Vol] 32.0 g/dL Normal 32-36 [facility] Comment on above: Performed By: #### L 300.3900, L100.0500, L300.4310, L500.2500, L501.9985, L500.3400 #### [facility] [address] [place], [address] MCV (RBC) [Entitic vol] 91.6 fL Normal 81-99 [facility] Comment on above: Performed By: #### L 300.3900, L100.0500, L300.4310, L500.2500, L501.9985, L500.3400 #### [facility] [address] [place], [address] Platelet mean volume (Bld) [Entitic vol] 8.4 fL Normal 6.2-12.0 [facility] Comment on above: Performed By: #### L 300.3900, L100.0500, L300.4310, L500.2500, L501.9985, L500.3400 #### [facility] [address] [place], [address] Platelets (Bld) [#/Vol] 539 10*3/uL High 150-450 [facility] Comment on above: Performed By: #### L 300.3900, L100.0500, L300.4310, L500.2500, L501.9985, L500.3400 #### [facility] [address] [place], [address] RBC (Bld) [#/Vol] 4.43 10*6/uL Normal 4.2-5.4 [facility] Comment on above: Performed By: #### L 300.3900, L100.0500, L300.4310, L500.2500, L501.9985, L500.3400 #### [facility] [address] [place], [address] RDW SD 45.0 fl High 35.1-43.9 [facility] Comment on above: Performed By: #### L 300.3900, L100.0500, L300.4310, L500.2500, L501.9985, L500.3400 #### [facility] [address] [place], [address] WBC (Bld) [#/Vol] 16.8 10*3/uL High 4.4-11.0 [facility] Comment on above: Performed By: #### L 300.3900, L100.0500, L300.4310, L500.2500, L501.9985, L500.3400 #### [facility] [address] [place], [address] Hemoglobin A1con 09-13-2023 HbA1c (Bld) [Mass fraction] 10.4 % High 3.8-5.6 [facility] Comment on above: Result Comment: Norm al < 5.7 % Prediabetic 5.7 - 6.4 % Diabetic >or= 6.5 % Please note range changes. Performed By: #### L 300.3900, L100.0500, L300.4310, L500.2500, L501.9985, L500.3400 #### [facility] [address] [place], [address] Liver Profileon 09-13-2023 Albumin [Mass/Vol] 3.1 g/dL Low 3.2-5.0 [facility] Comment on above: Performed By: #### L 300.3900, L100.0500, L300.4310, L500.2500, L501.9985, L500.3400 #### [facility] [address] [place], [address] ALK P 59 U/L Normal 45-117 [facility] Comment on above: Performed By: #### L 300.3900, L100.0500, L300.4310, L500.2500, L501.9985, L500.3400 #### [facility] [address] [place], [address] ALT [Catalytic activity/Vol] 16 U/L Normal 13-56 [facility] Comment on above: Performed By: #### L 300.3900, L100.0500, L300.4310, L500.2500, L501.9985, L500.3400 #### [facility] [address] [place], [address] AST [Catalytic activity/Vol] 14 U/L Low 15-37 [facility] Comment on above: Performed By: #### L 300.3900, L100.0500, L300.4310, L500.2500, L501.9985, L500.3400 #### [facility] [address] [place], [address] Bilirubin [Mass/Vol] 0.20 mg/dL Normal 0.20-1.[address] [facility] Comment on above: Result Comment: For patients on eltrombopag therapy, use of Dimension [place] TBIL is not recommended. Performed By: #### L 300.3900, L100.0500, L300.4310, L500.2500, L501.9985, L500.3400 #### [facility] [address] [place], [address] Bilirubin.direct [Mass/Vol] 0.12 mg/dL Normal 0.00-0.30 [facility] Comment on above: Performed By: #### L 300.3900, L100.0500, L300.4310, L500.2500, L501.9985, L500.3400 #### [facility] [address] [place], [address] Globulin (S) [Mass/Vol] 4.9 g/dL High 2.2-4.2 [facility] Comment on above: Performed By: #### L 300.3900, L100.0500, L300.4310, L500.2500, L501.9985, L500.3400 #### [facility] [address] [place], [place], [id number] (097) T PROT 8.0 g/dL Normal 6.4-8.2 [facility] Comment on above: Performed By: #### L 300.3900, L100.0500, L300.4310, L500.2500, L501.9985, L500.3400 #### [facility] [address] [place], [address] Partial Thromboplast Timeon 09-13-2023 aPTT Coag (Bld) [Time] 34.0 s Normal 24.1-36.[address] [facility] Comment on above: Performed By: #### L 300.3900, L100.0500, L300.4310, L500.2500, L501.9985, L500.3400 #### [facility] [address] [place], [address] Prothrombin Time w/INRon INR Coag (PPP) [Relative time] 1.2 {INR} Normal [facility] Comment on above: Performed By: #### L 300.3900, L100.0500, L300.4310, L500.2500, L501.9985, L500.3400 #### [facility] [address] [place], [address] PT Coag (PPP) [Time] 14.8 s Normal 11.7-14.[address] [facility] Comment on above: Performed By: #### L 300.3900, L100.0500, L300.4310, L500.2500, L501.9985, L500.3400 #### [facility] [address] [place], [address] RENINon 08-28-2023 Renin Activity 2.466 ng/mL/hr Normal 0.167-5.380 [facility] ([place]) Comment on above: Result Comment: This test was developed and its performance characteristics determined by [employer]. It has not been cleared or approved by the Food and Drug Administration. Performed At: [address] [id number] Rayshawn Paul MD Ph:[phone] Performed By: #### D HEAS, INSLN, CPEP, ANKUR, HCV1, MADYSON, GEOVANNA, GGT, PTH #### [address] [address] #### 305877, VIDH, 185638, GFR, MG, JESSICA, CMP, LIP, TSH, ADIFF, CRP, PHOS, CBC, ANEU #### [address] [address] OXBX0pe 08-28-2023 Vitamin B6 Lvl 3.6 UG/L Normal 3.4-65.2 [facility] ([place]) Comment on above: Result Comment: This test was developed and its performance characteristics determined by [employer]. It has not been cleared or approved by the Food and Drug Administration. Deficiency: <3.4 Marginal: 3.4 - 5.1 Adequate: >5.1 Performed At: [facility] [id number] Rayshawn Paul MD Ph:[phone] Performed By: #### D HEAS, INSLN, CPEP, ANKUR, HCV1, MADYSON, GEOVANNA, GGT, PTH #### [place] [address] #### 805690, VIDH, 001069, GFR, MG, JESSICA, CMP, LIP, TSH, ADIFF, CRP, PHOS, CBC, ANEU #### [address] [address] .ANATon 08-25-2023 MADYSON Pattern 1 Homogeneous [facility] ([place]) Comment on above: Result Comment: At [facility], an MADYSON titer of less than 160 is not considered suggestive of significant rheumatoid disease. If clinical suspicion is high, suggest repeat testing in 1-2 months. Performed By: #### D HEAS, INSLN, CPEP, ANKUR, HCV1, MADYSON, GEOVANNA, GGT, PTH #### [place] [address] #### [id number], VIDH, 864287, GFR, MG, JESSICA, CMP, LIP, TSH, ADIFF, CRP, PHOS, CBC, ANEU #### [address] [address] MADYSON Titer 1 40 [facility] ([place]) Comment on above: Performed By: #### D HEAS, INSLN, CPEP, ANKUR, HCV1, MADYSON, GEOVANNA, GGT, PTH #### [place] [address] #### 166955, VIDH, 398633, GFR, MG, JESSICA, CMP, LIP, TSH, ADIFF, CRP, PHOS, CBC, ANEU #### [address] [address] ANAon 08-25-2023 MADYSON See Titer Normal Neg 40 [facility] ([place]) Comment on above: Result Comment: MADYSON Screen and Titer methodology is an immunofluorescent technique utilizing Hep2 Substrate. Performed By: #### D HEAS, INSLN, CPEP, ANKUR, HCV1, MADYSON, GEOVANNA, GGT, PTH #### [place] [address] #### [id number], VIDH, 920075, GFR, MG, JESSICA, CMP, LIP, TSH, ADIFF, CRP, PHOS, CBC, ANEU #### [address] [address] .Auto Diffon 08-24-2023 Basophil, Absolute 0.1 10 3/mcL Normal 0.0-0.2 [facility] ([place]) Comment on above: Performed By: #### D HEAS, INSLN, CPEP, ANKUR, HCV1, MADYSON, GEOVANNA, GGT, PTH #### [place] [address] #### 467802, VIDH, 334914, GFR, MG, JESSICA, CMP, LIP, TSH, ADIFF, CRP, PHOS, CBC, ANEU #### [address] [address] Basophils/100 WBC (Bld) 0.5 % Normal 0.0-2.5 [facility] ([place]) Comment on above: Performed By: #### D HEAS, INSLN, CPEP, ANKUR, HCV1, MADYSON, GEOVANNA, GGT, PTH #### [place] [address] #### 539288, VIDH, 511184, GFR, MG, JESSICA, CMP, LIP, TSH, ADIFF, CRP, PHOS, CBC, ANEU #### [address] [address] Eosinophil, Absolute 0.0 10 3/mcL Normal 0.0-0.4 [facility] ([place]) Comment on above: Performed By: #### D HEAS, INSLN, CPEP, ANKUR, HCV1, MADYSON, GEOVANNA, GGT, PTH #### [place] [address] #### 040503, VIDH, 700457, GFR, MG, JESSICA, CMP, LIP, TSH, ADIFF, CRP, PHOS, CBC, ANEU #### [address] [address] Eosinophils/100 WBC (Bld) 0.0 % Normal 0.0-7.0 [facility] ([place]) Comment on above: Performed By: #### D PETRONAAS, INSLN, CPEP, ANKUR, HCV1, MADYSON, GEOVANNA, GGT, PTH #### [place] [address] #### 649747, VIDH, 871291, GFR, MG, JESSICA, CMP, LIP, TSH, ADIFF, CRP, PHOS, CBC, ANEU #### [address] [address] Lymphocyte, Absolute 2.6 10 3/mcL Normal 0.8-3.9 [facility] ([place]) Comment on above: Performed By: #### D PETRONAAS, INSLN, CPEP, ANKUR, HCV1, MADYSON, GEOVANNA, GGT, PTH #### [place] [address] #### [id number], VIDH, [id number], GFR, MG, JESSICA, CMP, LIP, TSH, ADIFF, CRP, PHOS, CBC, ANEU #### [address] [address] Lymphocytes/100 WBC (Bld) 17.4 % Normal 10.0-50.0 [facility] ([place]) Comment on above: Performed By: #### D HEAS, INSLN, CPEP, ANKUR, HCV1, MADYSON, GEOVANNA, GGT, PTH #### [place] [address] #### [id number], VIDH, 500784, GFR, MG, JESSICA, CMP, LIP, TSH, ADIFF, CRP, PHOS, CBC, ANEU #### [address] [address] Monocyte, Absolute 0.7 10 3/mcL Normal 0.2-1.0 [facility] ([place]) Comment on above: Performed By: #### D HEAS, INSLN, CPEP, ANKUR, HCV1, MADYSON, GEOVANNA, GGT, PTH #### [place] [address] #### [id number], VIDH, 580448, GFR, MG, JESSICA, CMP, LIP, TSH, ADIFF, CRP, PHOS, CBC, ANEU #### [address] [address] Monocytes/100 WBC (Bld) 4.5 % Normal 1.7-13.0 [facility] ([place]) Comment on above: Performed By: #### D HEAS, INSLN, CPEP, ANKUR, HCV1, MADYSON, GEOVANNA, GGT, PTH #### [address] [address] #### [id number], VIDH, 269842, GFR, MG, JESSICA, CMP, LIP, TSH, ADIFF, CRP, PHOS, CBC, ANEU #### [address] [address] Neutrophils/100 WBC (Bld) 77.6 % Normal 37.0-80.0 [facility] ([place]) Comment on above: Performed By: #### D HEAS, INSLN, CPEP, ANKUR, HCV1, MADYSON, GEOVANNA, GGT, PTH #### [place] [address] #### [id number], VIDH, 296130, GFR, MG, JESSICA, CMP, LIP, TSH, ADIFF, CRP, PHOS, CBC, ANEU #### [address] [address] .GFRon 08-24-2023 GFR 62 ml/min/1.73sqm Normal [facility] ([place]) Comment on above: Result Comment: GFR Population mean for , Non- Americans Ages 20-29 = 116 mL/min/1.73 sq.m. Ages 30-39 = 107 mL/min/1.73 sq.m. Ages 40-49 = 99 mL/min/1.73 sq.m. Ages 50-59 = 93 mL/min/1.73 sq.m. Ages 60-69 = 85 mL/min/1.73 sq.m. Ages 70+ = 75 mL/min/1.73 sq.m. Chronic Kidney Disease: Less than 60 mL/min/1.73 square meters End Stage Renal Disease: Less than 15 mL/min/1.73 square meters Performed By: #### D HEAS, INSLN, CPEP, ANKUR, HCV1, MADYSON, GEOVANNA, GGT, PTH #### [place] [address] #### [id number], VIDH, 683332, GFR, MG, JESSICA, CMP, LIP, TSH, ADIFF, CRP, PHOS, CBC, ANEU #### [address] [address] GFR Non- 51 ml/min/1.73sqm Normal [facility] ([place]) Comment on above: Result Comment: GFR Population mean for , Non- Americans Ages 20-29 = 116 mL/min/1.73 sq.m. Ages 30-39 = 107 mL/min/1.73 sq.m. Ages 40-49 = 99 mL/min/1.73 sq.m. Ages 50-59 = 93 mL/min/1.73 sq.m. Ages 60-69 = 85 mL/min/1.73 sq.m. Ages 70+ = 75 mL/min/1.73 sq.m. Chronic Kidney Disease: Less than 60 mL/min/1.73 square meters End Stage Renal Disease: Less than 15 mL/min/1.73 square meters Performed By: #### Amy BOWMAN, INSLN, CPEP, ANKUR, HCV1, MADYSON, GEOVANNA, GGT, PTH #### [place] [address] #### [id number], VIDH, 508612, GFR, MG, JESSICA, CMP, LIP, TSH, ADIFF, CRP, PHOS, CBC, ANEU #### [address] [address] .NEUABSon 08-24-2023 Neutrophil, Absolute 11.4 10 3/mcL High 2.9-6.2 A [facility] ([place]) Comment on above: Performed By: #### Amy HEAS, INSLN, CPEP, ANKUR, HCV1, MADYSON, GEOVANNA, GGT, PTH #### [place] [address] #### 093954, VIDH, 638869, GFR, MG, JESSICA, CMP, LIP, TSH, ADIFF, CRP, PHOS, CBC, ANEU #### [address] [address] AMYon 08-24-2023 Amylase [Catalytic activity/Vol] 47 U/L Normal 25-115 [facility] ([place]) Comment on above: Performed By: #### D PETRONAAS, INSLN, CPEP, ANKUR, HCV1, MADYSON, GEOVANNA, GGT, PTH #### [place] [address] #### [id number], VIDH, 307522, GFR, MG, JESSICA, CMP, LIP, TSH, ADIFF, CRP, PHOS, CBC, ANEU #### [address] [address] CBCon 08-24-2023 Erythrocyte distribution width (RBC) [Ratio] 14.3 % Normal 11.5-14.5 [facility] ([place]) Comment on above: Performed By: #### Amy RUSSAS, INSLN, CPEP, ANKUR, HCV1, MADYSON, GEOVANNA, GGT, PTH #### [place] [address] #### 644175, VIDH, 316710, GFR, MG, JESSICA, CMP, LIP, TSH, ADIFF, CRP, PHOS, CBC, ANEU #### [address] [address] Hematocrit (Bld) [Volume fraction] 37.0 % Normal 37.0-47.0 [facility] ([place]) Comment on above: Performed By: #### Amy HEAS, INSLN, CPEP, ANKUR, HCV1, MADYSON, GEOVANNA, GGT, PTH #### [place] [address] #### 649519, VIDH, 071307, GFR, MG, JESSICA, CMP, LIP, TSH, ADIFF, CRP, PHOS, CBC, ANEU #### [address] [address] Hgb 12.7 G/dL Normal 12.0-16.0 [facility] ([place]) Comment on above: Performed By: #### D HEAS, INSLN, CPEP, ANKUR, HCV1, MADYSON, GEOVANNA, GGT, PTH #### [place] [address] #### 669574, VIDH, 385025, GFR, MG, JESSICA, CMP, LIP, TSH, ADIFF, CRP, PHOS, CBC, ANEU #### [address] [address] MCH (RBC) [Entitic mass] 30.7 pg Normal 27.0-31.2 [facility] ([place]) Comment on above: Performed By: #### D HEAS, INSLN, CPEP, ANKUR, HCV1, MADYSON, GEOVANNA, GGT, PTH #### [place] [address] #### 570434, VIDH, 330039, GFR, MG, JESSICA, CMP, LIP, TSH, ADIFF, CRP, PHOS, CBC, ANEU #### [place] [address] MCHC 34.3 G/dL Normal 33.0-37.0 [facility] ([place]) Comment on above: Performed By: #### D PETRONAAS, INSLN, CPEP, ANKUR, HCV1, MADYSON, GEOVANNA, GGT, PTH #### [place] [address] #### [id number], VIDH, 375919, GFR, MG, JESSICA, CMP, LIP, TSH, ADIFF, CRP, PHOS, CBC, ANEU #### [address] [address] MCV (RBC) [Entitic vol] 89.4 fL Normal 80.0-94.0 A [facility] ([place]) Comment on above: Performed By: #### D HEAS, INSLN, CPEP, ANKUR, HCV1, MADYSON, GEOVANNA, GGT, PTH #### [place] [address] #### 399108, VIDH, 750756, GFR, MG, JESSICA, CMP, LIP, TSH, ADIFF, CRP, PHOS, CBC, ANEU #### [address] [address] Platelet 386 10 3/mcL Normal 130-400 [facility] ([place]) Comment on above: Performed By: #### Amy RUSSAS, INSLN, CPEP, ANKUR, HCV1, MADYSON, GEOVANNA, GGT, PTH #### [place] [address] #### 844899, VIDH, 107980, GFR, MG, JESSICA, CMP, LIP, TSH, ADIFF, CRP, PHOS, CBC, ANEU #### [address] [address] Platelet mean volume (Bld) [Entitic vol] 7.5 fL Normal 7.4-10.4 [facility] ([place]) Comment on above: Performed By: #### Amy BOWMAN, INSLN, CPEP, ANKUR, HCV1, MADYSON, GEOVANNA, GGT, PTH #### [place] [address] #### 125543, VIDH, 620263, GFR, MG, JESSICA, CMP, LIP, TSH, ADIFF, CRP, PHOS, CBC, ANEU #### [address] [address] RBC 4.14 10 6/mcL Low 4.20-5.40 [facility] ([place]) Comment on above: Performed By: #### Amy BOWMAN, INSLN, CPEP, ANKUR, HCV1, MADYSON, GEOVANNA, GGT, PTH #### [place] [address] #### 850278, VIDH, 341247, GFR, MG, JESSICA, CMP, LIP, TSH, ADIFF, CRP, PHOS, CBC, ANEU #### [address] [address] WBC 14.7 10 3/mcL High 4.6-10.8 [facility] ([place]) Comment on above: Performed By: #### Amy RUSSAS, INSLN, CPEP, ANKUR, HCV1, MADYSON, GEOVANNA, GGT, PTH #### [place] [address] #### 060487, VIDH, 827348, GFR, MG, JESSICA, CMP, LIP, TSH, ADIFF, CRP, PHOS, CBC, ANEU #### [address] [address] [facility] Albumin Level 3.6 G/dL Normal 3.4-4.8 [facility] ([place]) Comment on above: Performed By: #### Amy RUSSAS, INSLN, CPEP, ANKUR, HCV1, MADYSON, GEOVANNA, GGT, PTH #### [place] [address] #### 981824, VIDH, 751175, GFR, MG, JESSICA, CMP, LIP, TSH, ADIFF, CRP, PHOS, CBC, ANEU #### [address] [address] Albumin/Globulin [Mass ratio] 0.9 {ratio} Low 1.1-2.5 [facility] ([place]) Comment on above: Performed By: #### Amy RUSSAS, INSLN, CPEP, ANKUR, HCV1, MADYSON, GEOVANNA, GGT, PTH #### [place] [address] #### 611045, VIDH, 003607, GFR, MG, JESSICA, CMP, LIP, TSH, ADIFF, CRP, PHOS, CBC, ANEU #### [address] [address] ALP [Catalytic activity/Vol] 60 U/L Normal 40-135 [facility] ([place]) Comment on above: Performed By: #### Amy RUSSAS, INSLN, CPEP, ANKUR, HCV1, MADYSON, GEOVANNA, GGT, PTH #### [place] [address] #### 050744, VIDH, 955828, GFR, MG, JESSICA, CMP, LIP, TSH, ADIFF, CRP, PHOS, CBC, ANEU #### [address] [address] ALT [Catalytic activity/Vol] 20 U/L Normal 14-59 [facility] ([place]) Comment on above: Performed By: #### Amy HEAS, INSLN, CPEP, ANKUR, HCV1, MADYSON, GEOVANNA, GGT, PTH #### [address] [address] #### 338077, VIDH, 694604, GFR, MG, JESSICA, CMP, LIP, TSH, ADIFF, CRP, PHOS, CBC, ANEU #### [address] [address] AST [Catalytic activity/Vol] 16 U/L Normal 10-40 [facility] ([place]) Comment on above: Performed By: #### D HEAS, INSLN, CPEP, ANKUR, HCV1, MADYSON, GEOVANNA, GGT, PTH #### [place] [address] #### 426662, VIDH, 228878, GFR, MG, JESSICA, CMP, LIP, TSH, ADIFF, CRP, PHOS, CBC, ANEU #### [address] [address] Bili Total 0.6 mg/dL Normal 0.2-1.0 [facility] ([place]) Comment on above: Result Comment: Use of this assay is not recommended for patients undergoing treatment with eltrombopag due to the potential for falsely elevated results. Performed By: #### D HEAS, INSLN, CPEP, ANKUR, HCV1, MADYSON, GEOVANNA, GGT, PTH #### [place] [address] #### 404467, VIDH, 212302, GFR, MG, JESSICA, CMP, LIP, TSH, ADIFF, CRP, PHOS, CBC, ANEU #### [address] [address] BUN/Creatinine Ratio 18 ratio Normal 7-27 [facility] ([place]) Comment on above: Performed By: #### D HEAS, INSLN, CPEP, ANKUR, HCV1, MADYSON, GEOVANNA, GGT, PTH #### [address] [address] #### 701066, VIDH, 116479, GFR, MG, JESSICA, CMP, LIP, TSH, ADIFF, CRP, PHOS, CBC, ANEU #### [address] [address] Calcium [Mass/Vol] 9.3 mg/dL Normal 8.4-10.2 [facility] ([place]) Comment on above: Performed By: #### D PETRONAAS, INSLN, CPEP, ANKUR, HCV1, MADYSON, GEOVANNA, GGT, PTH #### [place] [address] #### 854593, VIDH, 535091, GFR, MG, JESSICA, CMP, LIP, TSH, ADIFF, CRP, PHOS, CBC, ANEU #### [address] [address] Chloride [Moles/Vol] 100 mmol/L Normal 98-107 [facility] ([place]) Comment on above: Performed By: #### Amy RUSSAS, INSLN, CPEP, ANKUR, HCV1, MADYSON, GEOVANNA, GGT, PTH #### [place] [address] #### 289599, VIDH, 035082, GFR, MG, JESSICA, CMP, LIP, TSH, ADIFF, CRP, PHOS, CBC, ANEU #### [address] [address] CO2 [Moles/Vol] 26 mmol/L Normal 23-31 [facility] ([place]) Comment on above: Performed By: #### D PETRONAAS, INSLN, CPEP, ANKUR, HCV1, MADYSON, GEOVANNA, GGT, PTH #### [place] [address] #### 783267, VIDH, 997160, GFR, MG, JESSICA, CMP, LIP, TSH, ADIFF, CRP, PHOS, CBC, ANEU #### [address] [address] Creatinine [Mass/Vol] 1.05 mg/dL High 0.55-1.02 [facility] ([place]) Comment on above: Performed By: #### D HEAS, INSLN, CPEP, ANKUR, HCV1, MADYSON, GEOVANNA, GGT, PTH #### [place] [address] #### 785157, VIDH, 982682, GFR, MG, JESSICA, CMP, LIP, TSH, ADIFF, CRP, PHOS, CBC, ANEU #### [address] [address] Electrolyte Balance 16.0 mEq/L High 4.0-15.0 [facility] ([place]) Comment on above: Performed By: #### D HEAS, INSLN, CPEP, ANKUR, HCV1, MADYSON, GEOVANNA, GGT, PTH #### [place] [address] #### 390271, VIDH, 198280, GFR, MG, JESSICA, CMP, LIP, TSH, ADIFF, CRP, PHOS, CBC, ANEU #### [address] [address] Globulin 4.0 G/dL Normal [facility] ([place]) Comment on above: Performed By: #### D HEAS, INSLN, CPEP, ANKUR, HCV1, MADYSON, GEOVANNA, GGT, PTH #### [place] [address] #### 232038, VIDH, 842737, GFR, MG, JESSICA, CMP, LIP, TSH, ADIFF, CRP, PHOS, CBC, ANEU #### [address] [address] Glucose [Mass/Vol] 399 mg/dL High 83-110 [facility] ([place]) Comment on above: Performed By: #### D HEAS, INSLN, CPEP, ANKUR, HCV1, MADYSON, GEOVANNA, GGT, PTH #### [place] [address] #### 632914, VIDH, 787229, GFR, MG, JESSICA, CMP, LIP, TSH, ADIFF, CRP, PHOS, CBC, ANEU #### [address] [address] Potassium [Moles/Vol] 5.4 mmol/L High 3.5-5.1 [facility] ([place]) Comment on above: Performed By: #### D HEAS, INSLN, CPEP, ANKUR, HCV1, MADYSON, GEOVANNA, GGT, PTH #### [address] [address] #### 453384, VIDH, 138572, GFR, MG, JESSICA, CMP, LIP, TSH, ADIFF, CRP, PHOS, CBC, ANEU #### [address] [address] Sodium [Moles/Vol] 142 mmol/L Normal 136-145 [facility] ([place]) Comment on above: Performed By: #### D HEAS, INSLN, CPEP, ANKUR, HCV1, MADYSON, GEOVANNA, GGT, PTH #### [place] [address] #### 884846, VIDH, 526219, GFR, MG, JESSICA, CMP, LIP, TSH, ADIFF, CRP, PHOS, CBC, ANEU #### [address] [address] Total Protein 7.6 G/dL Normal 6.4-8.2 [facility] ([place]) Comment on above: Performed By: #### D HEAS, INSLN, CPEP, ANKUR, HCV1, MADYSON, GEOVANNA, GGT, PTH #### [place] [address] #### 397484, VIDH, 217543, GFR, MG, JESSICA, CMP, LIP, TSH, ADIFF, CRP, PHOS, CBC, ANEU #### [address] [address] Urea nitrogen [Mass/Vol] 19 mg/dL High 7-18 [facility] ([place]) Comment on above: Performed By: #### D HEAS, INSLN, CPEP, ANKUR, HCV1, MADYSON, GEOVANNA, GGT, PTH #### [place] [id number] #### 725972, VIDH, 464125, GFR, MG, JESSICA, CMP, LIP, TSH, ADIFF, CRP, PHOS, CBC, ANEU #### [address] [address] CORTon 08-24-2023 Cortisol Level 32.1 mcg/dL Normal [facility] ([place]) Comment on above: Result Comment: Ankur isol AM Reference Range 6.5-26.0 mcg/dL Cortisol PM Reference Range 3.5-15.0 mcg/dL Performed By: #### D HEAS, INSLN, CPEP, ANKUR, HCV1, MADYSON, GEOVANNA, GGT, PTH #### [address] [address] #### 175351, VIDH, 049168, GFR, MG, JESSICA, CMP, LIP, TSH, ADIFF, CRP, PHOS, CBC, ANEU #### [address] [address] CPEPon 08-24-2023 C-Peptide 1.93 ng/mL Normal 0.81-3.85 [facility] ([place]) Comment on above: Performed By: #### D COLBY, INSLN, CPEP, ANKUR, HCV1, MADYSON, GEOVANNA, GGT, PTH #### [place] [address] #### 113284, VIDH, 751878, GFR, MG, JESSICA, CMP, LIP, TSH, ADIFF, CRP, PHOS, CBC, ANEU #### [address] [address] CRPon 08-24-2023 C-Reactive Protein 0.9 mg/dL High 0.0-0.3 [facility] ([place]) Comment on above: Performed By: #### Amy HEAS, INSLN, CPEP, ANKUR, HCV1, MADYSON, GEOVANNA, GGT, PTH #### [address] [address] #### 265894, VIDH, 320699, GFR, MG, JESSICA, CMP, LIP, TSH, ADIFF, CRP, PHOS, CBC, ANEU #### [address] [address] DHEASon 08-24-2023 DHEA-SO4 207.62 mcg/dL Normal 25.90-460.20 [facility] ([place]) Comment on above: Result Comment: No te - New Reference Range in effect 20 Performed By: #### D HEAS, INSLN, CPEP, ANKUR, HCV1, MADYSON, GEOVANNA, GGT, PTH #### [place] [address] #### 140590, VIDH, 020881, GFR, MG, JESSICA, CMP, LIP, TSH, ADIFF, CRP, PHOS, CBC, ANEU #### [address] [address] GGTon 08-24-2023 Gamma GT 21 U/L Normal 5-55 [facility] ([place]) Comment on above: Performed By: #### D HEAS, INSLN, CPEP, ANUKR, HCV1, MADYSON, GEOVANNA, GGT, PTH #### [place] [address] #### 224016, VIDH, 609003, GFR, MG, JESSICA, CMP, LIP, TSH, ADIFF, CRP, PHOS, CBC, ANEU #### [address] [address] HCVon 08-24-2023 Hep C Ab Non-Reactive Normal Non-Reactive [facility] ([place]) Comment on above: Performed By: #### D HEAS, INSLN, CPEP, ANKUR, HCV1, MADSYON, GEOVANNA, GGT, PTH #### [place] [address] #### 421707, VIDH, 188015, GFR, MG, JESSICA, CMP, LIP, TSH, ADIFF, CRP, PHOS, CBC, ANEU #### [address] [address] Hep C Ab Int Normal [facility] ([place]) Comment on above: Result Comment: Nonr eactive: Samples with a value < 0.80 are considered nonreactive (negative) for antibodies to HCV. A negative test result does not exclude the possibility of exposure to or infection with HCV. HCV antibodies may be undetectable in some stages of the infection and in some clinical conditions. See Interp Performed By: #### D HEAS, INSLN, CPEP, ANKUR, HCV1, MADYSON, GEOVANNA, GGT, PTH #### [address] [address] #### 298914, VIDH, 733442, GFR, MG, JESSICA, CMP, LIP, TSH, ADIFF, CRP, PHOS, CBC, ANEU #### [place] [address] [place], [place] [address] INSLNon 08-24-2023 Insulin 4.00 munit/L Normal 2.60-37.60 [facility] ([place]) Comment on above: Performed By: #### D HEAS, INSLN, CPEP, ANKUR, HCV1, MADYSON, GEOVANNA, GGT, PTH #### [address] [address] #### 930464, VIDH, 263261, GFR, MG, JESSICA, CMP, LIP, TSH, ADIFF, CRP, PHOS, CBC, ANEU #### [address] [address] LABORATORYOrdered By: SYSTEM SYSTEM on 08-24-2023 25-hydroxyvitamin D3 [Mass/Vol] 47.7 ng/mL Invalid Interpretation Code AO ADM SS Comment on above: Interpretive Data: I nterpretive Values Based on Total 25(OH) Vitamin D: Deficient <20 ng/mL Insufficient 20 - <30 ng/mL Sufficient 30-100 ng/mL Albumin BCP dye [Mass/Vol] 3.6 G/dL Normal 3.4 - 4.8 G/dL AO ADM SS Albumin/Globulin [Mass ratio] 0.9 {ratio} Low 1.1 - 2.5 ratio AO ADM SS ALP [Catalytic activity/Vol] 60 U/L Normal 40 - 135 U/L AO ADM SS ALT With P-5'-P [Catalytic activity/Vol] 20 U/L Normal 14 - 59 U/L AO ADM SS Amylase [Catalytic activity/Vol] 47 U/L Normal 25 - 115 U/L AO ADM SS AST With P-5'-P [Catalytic activity/Vol] 16 U/L Normal 10 - 40 U/L AO ADM SS Basophil, Absolute 0.1 103/mcL Normal 0.0 - 0.2 10^3/mcL AO Workflow SS Basophils/100 WBC (Bld) 0.5 % Normal 0.0 - 2.5 % AO Workflow SS Bilirubin [Mass/Vol] 0.6 mg/dL Normal 0.2 - 1 .0 mg/dL AO ADM SS Comment on above: Interpretive Data: U se of this assay is not recommended for patients undergoing treatment with eltrombopag due to the potential for falsely elevated results. C peptide [Mass/Vol] 1.93 ng/mL Normal 0.81 - 3.85 ng/mL AH ADM SS Calcium [Mass/Vol] 9.3 mg/dL Normal 8.4 - 10. 2 mg/dL AO ADM SS Chloride [Moles/Vol] 100 mmol/L Normal 98 - 10 7 mmol/L AO ADM SS CO2 [Moles/Vol] 26 mmol/L Normal 23 - 31 mmol/L AO ADM SS Cortisol [Mass/Vol] 32.1 ug/dL Invalid Interpretation Code AH ADM SS Comment on above: Interpretive Data: C ortisol AM Reference Range 6.5-26.0 mcg/dL Cortisol PM Reference Range 3.5-15.0 mcg/dL Creatinine [Mass/Vol] 1.05 mg/dL High 0.55 - 1.02 mg/dL AO ADM SS CRP [Mass/Vol] 0.9 mg/dL High 0.0 - 0.3 mg/dL AO ADM SS DHEA-S [Mass/Vol] 207.62 ug/dL Normal 25.90 - 460.20 mcg/dL AH ADM SS Comment on above: Interpretive Data: * *Note - New Reference Range in effect 20 Electrolyte Balance 16.0 mEq/L High 4.0 - 15 .0 mEq/L AO ADM SS Eosinophil, Absolute 0.0 103/mcL Normal 0.0 - 0 .4 10^3/mcL AO Workflow SS Eosinophils/100 WBC (Bld) 0.0 % Normal 0.0 - 7.0 % AO Workflow SS Erythrocyte distribution width (RBC) [Ratio] 14.3 % Normal 11.5 - 14.5 % AO Workflow SS Gamma glutamyl transferase [Catalytic activity/Vol] 21 U/L Normal 5 - 55 U/L AH ADM SS GFR/1.73 sq M.predicted among blacks MDRD (S/P/Bld) [Vol rate/Area] 62 ml/min/1.73sqm Invalid Interpretation Code AO Chemistry S Comment on above: Interpretive Data: GFR Population mean for , Non- Americans Ages 20-29 = 116 mL/min/1.73 sq.m. Ages 30-39 = 107 mL/min/1.73 sq.m. Ages 40-49 = 99 mL/min/1.73 sq.m. Ages 50-59 = 93 mL/min/1.73 sq.m. Ages 60-69 = 85 mL/min/1.73 sq.m. Ages 70+ = 75 mL/min/1.73 sq.m. Chronic Kidney Disease: Less than 60 mL/min/1.73 square meters End Stage Renal Disease: Less than 15 mL/min/1.73 square meters GFR/1.73 sq M.predicted among non-blacks MDRD (S/P/Bld) [Vol rate/Area] 51 ml/min/1.73sqm Invalid Interpretation Code AO Chemistry S Comment on above: Interpretive Data: GFR Population mean for , Non- Americans Ages 20-29 = 116 mL/min/1.73 sq.m. Ages 30-39 = 107 mL/min/1.73 sq.m. Ages 40-49 = 99 mL/min/1.73 sq.m. Ages 50-59 = 93 mL/min/1.73 sq.m. Ages 60-69 = 85 mL/min/1.73 sq.m. Ages 70+ = 75 mL/min/1.73 sq.m. Chronic Kidney Disease: Less than 60 mL/min/1.73 square meters End Stage Renal Disease: Less than 15 mL/min/1.73 square meters Globulin 4.0 G/dL Invalid Interpretation Code AO ADM SS Glucose [Mass/Vol] 399 mg/dL High 83 - 110 mg/dL AO ADM SS Hematocrit (Bld) [Volume fraction] 37.0 % Normal 37.0 - 47.0 % AO Workflow SS Hemoglobin (Bld) [Mass/Vol] 12.7 G/dL Normal 12.0 - 16.0 G/dL AO Workflow SS Insulin Qn 4.00 munit/L Normal 2.60 - 37.60 mU/L AH ADM SS Lipase [Catalytic activity/Vol] 84 U/L High 16 - 77 U/L AO ADM SS Lymphocyte, Absolute 2.6 103/mcL Normal 0.8 - 3 .9 10^3/mcL AO Workflow SS Lymphocytes/100 WBC (Bld) 17.4 % Normal 10.0 - 50.0 % AO Workflow SS Magnesium [Mass/Vol] 1.5 mg/dL Low 1.8 - 2 .4 mg/dL AO ADM SS MCH (RBC) [Entitic mass] 30.7 pg Normal 27. 0 - 31.2 pg AO Workflow SS MCHC 34.3 G/dL Normal 33.0 - 37.0 G/dL AO Workflow SS MCV (RBC) [Entitic vol] 89.4 fL Normal 80.0 - 94.0 fL AO Workflow SS Monocyte, Absolute 0.7 103/mcL Normal 0.2 - 1.0 10^3/mcL AO Workflow SS Monocytes/100 WBC (Bld) 4.5 % Normal 1.7 - 13.0 % AO Workflow SS Neutrophil, Absolute 11.4 103/mcL High 2.9 - 6 .2 10^3/mcL AO Workflow SS Neutrophils/100 WBC (Bld) 77.6 % Normal 37.0 - 80.0 % AO Workflow SS Parathyrin.intact [Mass/Vol] 13.5 pg/mL Low 18.5 - 88.0 pg/mL AH ADM SS Phosphate [Mass/Vol] 3.2 mg/dL Normal 2.3 - 4 .1 mg/dL AO ADM SS Platelet mean volume (Bld) [Entitic vol] 7.5 fL Normal 7.4 - 10.4 fL AO Workflow SS Platelets (Bld) [#/Vol] 386 103/mcL Normal 130 - 400 10^3/mcL AO Workflow SS Potassium [Moles/Vol] 5.4 mmol/L High 3.5 - 5.1 mmol/L AO ADM SS Protein [Mass/Vol] 7.6 G/dL Normal 6.4 - 8.2 G/dL AO ADM SS RBC (Bld) [#/Vol] 4.14 106/mcL Low 4.20 - 5.4 0 10^6/mcL AO Workflow SS Sodium [Moles/Vol] 142 mmol/L Normal 136 - 145 mmol/L AO ADM SS TSH Qn 0.68 m[IU]/L Normal 0.36 - 3.74 mcIU/mL AO ADM SS Urea nitrogen [Mass/Vol] 19 mg/dL High 7 - 18 mg/d L AO ADM SS Urea nitrogen/Creatinine [Mass ratio] 18 ratio Normal 7 - 27 ratio AO ADM SS WBC (Bld) [#/Vol] 14.7 103/mcL High 4.6 - 10.8 10^3/mcL AO Workflow SS LABORATORYOrdered By: Sreedhar Villagomez on 08-24-2023 HCV Ab IA Ql Non-Reactive (08/24/23 8:05 AM) Normal Non-Reactive AH ADM SS HCV Ab IA Ql Nonreactive: Samples with a value < 0.80 are considered nonreactive (negative) for antibodies to HCV.A negative test result does not exclude the possibility of exposure to or infection with HCV. HCV antibodies may be undetectable in some stages of the infection and in some clinical conditions. Invalid Interpretation Code Chemistry S LIPon 08-24-2023 Lipase Level 84 U/L High 16-77 [facility] ([place]) Comment on above: Performed By: #### D PETRONAAS, INSLN, CPEP, ANKUR, HCV1, MADYSON, GEOVANNA, GGT, PTH #### [place] [address] #### [id number], VIDH, 857082, GFR, MG, JESSICA, CMP, LIP, TSH, ADIFF, CRP, PHOS, CBC, ANEU #### [address] [address] MGon 08-24-2023 Magnesium [Mass/Vol] 1.5 mg/dL Low 1.8-2.4 [facility] ([place]) Comment on above: Performed By: #### D PETRONAAS, INSLN, CPEP, ANKUR, HCV1, MADYSON, GEOVANNA, GGT, PTH #### [place] [address] #### [id number], VIDH, 538286, GFR, MG, JESSICA, CMP, LIP, TSH, ADIFF, CRP, PHOS, CBC, ANEU #### [address] [address] PHOSon 08-24-2023 Phosphate [Mass/Vol] 3.2 mg/dL Normal 2.3-4.1 [facility] ([place]) Comment on above: Performed By: #### D HEAS, INSLN, CPEP, ANKUR, HCV1, MADYSON, GEOVANNA, GGT, PTH #### [place] [address] #### [id number], VIDH, 534898, GFR, MG, JESSICA, CMP, LIP, TSH, ADIFF, CRP, PHOS, CBC, ANEU #### [place] [id number] PTHon 08-24-2023 PTH, Intact 13.5 pg/mL Low 18.5-88.0 [facility] ([place]) Comment on above: Performed By: #### D HEAS, INSLN, CPEP, ANKUR, HCV1, MADYSON, GEOVANNA, GGT, PTH #### [place] [address] #### [id number], VIDH, 069901, GFR, MG, JESSICA, CMP, LIP, TSH, ADIFF, CRP, PHOS, CBC, ANEU #### [place] [address] TSHon 08-24-2023 TSH Qn 0.68 m[IU]/L Normal 0.36-3.74 [facility] ([place]) Comment on above: Performed By: #### Amy RUSSAS, INSLN, CPEP, ANKUR, HCV1, MADYSON, GEOVANNA, GGT, PTH #### [place] [address] #### [id number], VIDH, 073896, GFR, MG, JESSICA, CMP, LIP, TSH, ADIFF, CRP, PHOS, CBC, ANEU #### [place] [id number] VIDHon 08-24-2023 Vit. D 25-Hydroxy 47.7 ng/mL Normal [facility] ([place]) Comment on above: Result Comment: Inte rpretive Values Based on Total 25(OH) Vitamin D: Deficient <20 ng/mL Insufficient 20 - <30 ng/mL Sufficient 30-100 ng/mL Performed By: #### D HEAS, INSLN, CPEP, ANKUR, HCV1, MADYSON, GEOVANNA, GGT, PTH #### [place] [address] #### [id number], VIDH, 100014, GFR, MG, JESSICA, CMP, LIP, TSH, ADIFF, CRP, PHOS, CBC, ANEU #### [place] [id number] [place], [place] [address] Absolute lymphocyte countOrd ered By: Fabrizio Sanz on 08-21-2023 Lymphocytes Auto (Unsp spec) [#/Vol] 2.73 10*3/uL 0.83-4.51 [facility] Automated lymphocyte count a s percentage of total leukocytesOrdered By: Fabrizio Sanz on 08-21-2023 Lymphocytes/100 WBC Auto (Unsp spec) 19.1 % 19-41 [facility] Basophil percentageOrdered B y: Fabrizio Sanz on 08-21-2023 Basophil percentage 0-5 SEEN /hpf 0-[address] [facility] Basophils/100 WBC (Bld) 0.4 % 0-1 [facility] Chloride [Moles/Vol] 101 mmol/L 98-[address] [facility] Eosinophils/100 WBC (Bld) 0.0 % 0-5 [facility] Glucose [Mass/Vol] 436 mg/dL 74-106 [facility] Comment on above: Glucose result great er than or equal to 200 mg/dLsuggests DIABETES MELLITUS per A.D.A. criteria. Hemoglobin (Bld) [Mass/Vol] 12.2 g/dL 12.0-15.0 [facility] Monocytes/100 WBC (Bld) 4.4 % 0-10 [facility] Neutrophils (Bld) [#/Vol] 10.8 10*3/uL 2.0-7.7 [facility] Neutrophils/100 WBC (Bld) 75.7 % 47-70 [facility] Potassium [Moles/Vol] 4.7 mmol/L 3.5-5.1 [facility] Comment on above: Moderate Hemolysis, Result may be falsely increased. Sodium [Moles/Vol] 131 mmol/L 136-145 [facility] WBC (Bld) [#/Vol] 14.3 10*3/uL 4.4-11.0 [facility] Bilirubin Test strip Ql (U)O rdered By: Fabrizio Sanz on 08-21-2023 Bilirubin Ql (U) Negative Negative [facility] Determination of erythrocyte mean corpuscular volume (MCV)Ordered By: Fabrizio Sanz on 08-21-2023 MCV (RBC) [Entitic vol] 90.3 fL 81-99 [facility] Erythrocyte distribution wid th ratioOrdered By: Fabrizio Sanz on 08-21-2023 Erythrocyte distribution width (RBC) [Ratio] 13.5 % 11.6-14.6 [facility] Erythrocyte distribution wid th standard deviationOrdered By: Fabrizio Sanz on 08-21-2023 Erythrocyte distribution width (RBC) [Entitic vol] 44.5 fL 35.1-43.9 [facility] Hematocrit Auto (Bld) [Volum e fraction]Ordered By: Fabrizio Sanz on 08-21-2023 Hematocrit (Bld) [Volume fraction] 36.2 % 37-47 [facility] Immature granulocytes/100 WB C Auto (Bld)Ordered By: Fabrizio Sanz on 08-21-2023 Immature granulocytes/100 WBC (Bld) 0.400 % 0.0-0.9 [facility] Comment on above: IG% - Immature Granu locytes (promyelocytes, myelocytes and metamyelocytes) > 1% indicates that a LEFT SHIFT is Present. Ketones Test strip Ql (U)Ord ered By: Fabrizio Sanz on 08-21-2023 Ketones Ql (U) Negative Negative [facility] Laboratory - Chemistry and C hemistry - challengeOrdered By: Fabrizio Sanz on 08-21-2023 CO2 [Moles/Vol] 25.0 mmol/L 21.0-32.0 [facility] Urea nitrogen/Creatinine [Mass ratio] 27.4 mg/mg 10-20 [facility] Laboratory - Hematology and Cell countsOrdered By: Fabrizio Sanz on 08-21-2023 MCH (RBC) [Entitic mass] 30.4 pg 27.0-32.0 [facility] MCHC (RBC) [Mass/Vol] 33.7 g/dL 32-36 [facility] Nucleated RBC/100 WBC (Bld) [Ratio] 0 % 0-5 [facility] Platelet mean volume (Bld) [Entitic vol] 9.0 fL 6.2-12.0 [facility] Platelets (Bld) [#/Vol] 441 10*3/uL 150-450 [facility] Mucus LM Ql (Urine sed)Order ed By: Fabrizio Sanz on 08-21-2023 Mucus Ql (Urine sed) 0 SEEN /hpf [facility] Nitrite Test strip Ql (U)Ord ered By: Fabrizio Sanz on 08-21-2023 Nitrite Ql (U) Negative Negative [facility] No Panel InformationOrdered By: Fabrizio Sanz on 08-21-2023 Urine RBC 10-25 SEEN /hpf 0-5 [facility] Estimated Creatinine Clearance Calc 33.36 ml/min [facility] Estimated GFR (MDRD) Amer 71 mL/min >60 [facility] Comment on above: GFR Calc Estimated GFR (MDRD) Non-Af Amer 58 mL/min >60 [facility] Comment on above: Non- GFR Calc Protein Test strip Ql (U)Ord ered By: Fabrizio Sanz on 08-21-2023 Protein Ql (U) 30 mg/dl Negative [facility] RBC Auto (Bld) [#/Vol]Ordere d By: Fabrizio Sanz on 08-21-2023 RBC (Bld) [#/Vol] 4.01 10*6/uL 4.2-5.4 [facility] Serum or plasma calcium delvis urement (mass/volume)Ordered By: Fabrizio Sanz on 08-21-2023 Calcium [Mass/Vol] 9.0 mg/dL 8.5-10.1 [facility] Serum or plasma creatinine m easurement (mass/volume)Ordered By: Fabrizio Sanz on 08-21-2023 Creatinine [Mass/Vol] 0.98 mg/dL 0.55-1.02 [facility] Comment on above: The validity of the calculated GFR & GFRAA in patients over 70 years has not been determined. Clinical correlation is essential. Serum or plasma urea nitroge n measurement (mass/volume)Ordered By: Fabrizio Sanz on 08-21-2023 Urea nitrogen [Mass/Vol] 27 mg/dL 7-18 [facility] Squamous epithelial cells de tection in urine sediment by light microscopyOrdered By: Fabrizio Sanz on 08-21-2023 Epithelial cells.squamous LM Ql (Urine sed) 0-5 SEEN /hpf 5-10 [facility] Thin prep Papanicolaou smear with manual screeningOrdered By: Fabrizio Sanz on 08-21-2023 Thin prep Papanicolaou smear with manual screening 341 mg/dL 74-106 [facility] Comment on above: MANAGEMENT OF PATIEN T CARE PER NURSING PROTOCOL Thin prep Papanicolaou smear with manual screening 5 5-15 [facility] Urine blood detectionOrdered By: Fabrizio Sanz on 08-21-2023 RBC Ql (U) 250 /ul Negative [facility] Urine clarityOrdered By: Luis Daniel Sanz on 08-21-2023 Clarity (U) Clear Clear [facility] Urine color determinationOrd ered By: Fabrizio Sanz on 08-21-2023 Color (U) Yellow Yellow [facility] Urine glucose detectionOrder ed By: Fabrizio Sanz on 08-21-2023 Glucose Ql (U) 1000 mg/dl Normal [facility] Urine leukocyte esterase det ection by dipstickOrdered By: Fabrizio Sanz on 08-21-2023 Leukocyte esterase Test strip Ql (U) 100 /ul Negative [facility] Urine pHOrdered By: Fabrizio riggins on 08-21-2023 pH (U) 7.0 [pH] 5.0 - 8.0 [facility] Urine sediment bacteria coun t by microscopy (number/high power field)Ordered By: Fabrizio Sanz on 08-21-2023 Bacteria LM.HPF (Urine sed) [#/Area] 0 /[HPF] None Seen [facility] Urine specific gravity measu rementOrdered By: Fabrizio Sanz on 08-21-2023 Specific gravity (U) [Rel density] 1.005 1.002-1.030 [facility] Urine urobilinogen measureme ntOrdered By: Fabrizio Sanz on 08-21-2023 Urobilinogen Ql (U) Normal mg/dl Normal [facility] Basophil percentageOrdered B y: Baldev Gaxiola on 08-10-2023 Chloride [Moles/Vol] 108 mmol/L 98-[address] [facility] Glucose [Mass/Vol] 163 mg/dL 74-106 [facility] Comment on above: Fasting Glucose resu lt greater than or equal to 126 mg/dL suggests DIABETES MELLITUS per A.D.A. criteria. Hemoglobin (Bld) [Mass/Vol] 10.6 g/dL 12.0-15.0 [facility] Potassium [Moles/Vol] 3.6 mmol/L 3.5-5.1 [facility] Sodium [Moles/Vol] 140 mmol/L 136-145 [facility] WBC (Bld) [#/Vol] 13.6 10*3/uL 4.4-11.0 [facility] Determination of erythrocyte mean corpuscular volume (MCV)Ordered By: Baldev Gaxiola on 08-10-2023 MCV (RBC) [Entitic vol] 87.8 fL 81-99 [facility] Erythrocyte distribution wid th ratioOrdered By: Baldev Gaxiola on 08-10-2023 Erythrocyte distribution width (RBC) [Ratio] 12.9 % 11.6-14.6 [facility] Erythrocyte distribution wid th standard deviationOrdered By: Baldev Gaxiola on 08-10-2023 Erythrocyte distribution width (RBC) [Entitic vol] 41.5 fL 35.1-43.9 [facility] Hematocrit Auto (Bld) [Volum e fraction]Ordered By: Baldev Gaxiola on 08-10-2023 Hematocrit (Bld) [Volume fraction] 31.7 % 37-47 [facility] Laboratory - Chemistry and C hemistry - challengeOrdered By: Baldev Gaxiola on 08-10-2023 CO2 [Moles/Vol] 24.0 mmol/L 21.0-32.0 [facility] Urea nitrogen/Creatinine [Mass ratio] 16.3 mg/mg 10-20 [facility] Laboratory - Hematology and Cell countsOrdered By: Baldev Gaxiola on 08-10-2023 MCH (RBC) [Entitic mass] 29.4 pg 27.0-32.0 [facility] MCHC (RBC) [Mass/Vol] 33.4 g/dL 32-36 [facility] Platelet mean volume (Bld) [Entitic vol] 9.3 fL 6.2-12.0 [facility] Platelets (Bld) [#/Vol] 271 10*3/uL 150-450 [facility] No Panel InformationOrdered By: aBldev Gaxiola on 08-10-2023 Estimated Creatinine Clearance Calc 43.82 ml/min [facility] Estimated GFR (MDRD) Amer 99 mL/min >60 [facility] Comment on above: GFR Calc Estimated GFR (MDRD) Non-Af Amer 82 mL/min >60 [facility] Comment on above: Non- GFR Calc RBC Auto (Bld) [#/Vol]Ordere d By: Baldev Gaxoila on 08-10-2023 RBC (Bld) [#/Vol] 3.61 10*6/uL 4.2-5.4 [facility] Serum or plasma calcium delvis urement (mass/volume)Ordered By: Baldev Gaxiola on 08-10-2023 Calcium [Mass/Vol] 8.4 mg/dL 8.5-10.1 [facility] Serum or plasma creatinine m easurement (mass/volume)Ordered By: Baldev Gaxiola on 08-10-2023 Creatinine [Mass/Vol] 0.74 mg/dL 0.55-1.02 [facility] Comment on above: The validity of the calculated GFR & GFRAA in patients over 70 years has not been determined. Clinical correlation is essential. Serum or plasma urea nitroge n measurement (mass/volume)Ordered By: Baldev Gaxiola on 08-10-2023 Urea nitrogen [Mass/Vol] 12 mg/dL 7-18 [facility] Thin prep Papanicolaou smear with manual screeningOrdered By: Hesham Solomon on 08-10-2023 Thin prep Papanicolaou smear with manual screening 333 mg/dL 74-106 [facility] Comment on above: MANAGEMENT OF PATIEN T CARE PER NURSING PROTOCOL Thin prep Papanicolaou smear with manual screeningOrdered By: Baldev Gaxiola on 08-10-2023 Thin prep Papanicolaou smear with manual screening 8 5-15 [facility] Whole blood hemoglobin A1c/t otal hemoglobin ratio (mass fraction)Ordered By: Baldev Gaxiola on 08-07-2023 HbA1c (Bld) [Mass fraction] 12.4 % 3.8-5.6 [facility] Comment on above: Normal < 5.7 % Predi abetic 5.7 - 6.4 % Diabetic >or= 6.5 % Please note range changes. Absolute lymphocyte countOrd ered By: Art Alcaraz on 08-06-2023 Lymphocytes Auto (Unsp spec) [#/Vol] 2.07 10*3/uL 0.83-4.51 [facility] Automated lymphocyte count a s percentage of total leukocytesOrdered By: Art Alcaraz on 02-10-2024 Lymphocytes/100 WBC Auto (Unsp spec) 9.0 % 19-41 [facility] Basophil percentageOrdered B y: Art Alcaraz on 08-06-2023 Basophils/100 WBC (Bld) 0.3 % 0-1 [facility] Eosinophils/100 WBC (Bld) 0.0 % 0-5 [facility] Monocytes/100 WBC (Bld) 4.1 % 0-10 [facility] Neutrophils (Bld) [#/Vol] 19.7 10*3/uL 2.0-7.7 [facility] Neutrophils/100 WBC (Bld) 85.7 % 47-70 [facility] Immature granulocytes/100 WB C Auto (Bld)Ordered By: Art Alcaraz on 08-06-2023 Immature granulocytes/100 WBC (Bld) 0.900 % 0.0-0.9 [facility] Comment on above: IG% - Immature Granu locytes (promyelocytes, myelocytes and metamyelocytes) > 1% indicates that a LEFT SHIFT is Present. Laboratory - Hematology and Cell countsOrdered By: Art Alcaraz on 08-06-2023 Nucleated RBC/100 WBC (Bld) [Ratio] 0 % 0-5 [facility] No Panel InformationOrdered By: Art Alcaraz on 08-06-2023 Troponin I High Sensitivity 835 pg/mL 3.0-54.0 [facility] Comment on above: Critical Result(s) C alled at: 10:09:25 08/06/2023 by: Georgiana Reece to Matias. Results read back by same. Please Note: New Test Units and Gender Specific Reference Ranges. For more information see Policy Stat Procedure [place] High Sensitivity Troponin (TNIH) and attachments. Base excessOrdered By: Kriss Gu on 08-05-2023 Base excess Calc (BldV) [Moles/Vol] -2 mmol/L -1.0-3.5 [facility] Basophil percentageOrdered B y: Virginia Gu on 08-05-2023 Basophil percentage 0 SEEN /hpf 0-[address] [facility] Bilirubin [Mass/Vol] 0.60 mg/dL 0.20-1.[address] [facility] Comment on above: For patients on eltr ombopag therapy, use of Dimension [place] TBIL is not recommended. Protein [Mass/Vol] 8.2 g/dL 6.4-8.2 [facility] Basophil percentageOrdered B y: Art Alcaraz on 08-05-2023 Basophil percentage 2.6 mg/dL 2.5-4.9 [facility] Bilirubin Test strip Ql (U)O rdered By: Virginia Gu on 08-05-2023 Bilirubin Ql (U) Negative Negative [facility] CO2 (BldV) [Moles/Vol]Ordere d By: Virginia Gu on 08-05-2023 CO2 [Moles/Vol] 24 mmol/L 23-33 [facility] Culture, urineOrdered By: Mario Gu on 08-05-2023 Bacteria identified Cx Nom (U) Escherichia coli [facility] Direct bilirubinOrdered By: Virginia Gu on 08-05-2023 Bilirubin.direct [Mass/Vol] 0.23 mg/dL 0.00-0.30 [facility] Ketones Test strip Ql (U)Ord ered By: Virginia Gu on 08-05-2023 Ketones Ql (U) 5 mg/dl Negative [facility] Laboratory - Chemistry and C hemistry - challengeOrdered By: Virginia Gu on 08-05-2023 HCO3 (Bld) [Moles/Vol] 23 mmol/L 22-[address] [facility] ALP [Catalytic activity/Vol] 105 U/L 45-117 [facility] ALT [Catalytic activity/Vol] 23 U/L 13-56 [facility] Globulin (S) [Mass/Vol] 5.0 g/dL 2.2-4.2 [facility] Laboratory - Chemistry and C hemistry - challengeOrdered By: Art Alcaraz on 08-05-2023 Magnesium [Mass/Vol] 1.8 mg/dL 1.6-2.[address] 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 Blood Gas Specimen Type DEDRICK [facility] Oxygen Delivery Device Cannula [facility] PCO2 venousOrdered By: Kriss Gu on 08-05-2023 CO2 (BldV) [Partial pressure] 38.1 mm[Hg] 41-51 [facility] PO2 venousOrdered By: Daxa Gu on 08-05-2023 Oxygen (BldV) [Partial pressure] 56 mm[Hg] 25-40 [facility] Protein Test strip Ql (U)Ord ered By: Virginia Gu on 08-05-2023 Protein Ql (U) 30 mg/dl Negative [facility] Serum or plasma acetone delvis urement (mass/volume)Ordered By: Virginia Gu on 08-05-2023 Acetone [Mass/Vol] MODERATE NEG [facility] Squamous epithelial cells de tection in urine sediment by light microscopyOrdered By: Virginia Gu on 08-05-2023 Epithelial cells.squamous LM Ql (Urine sed) 0 SEEN /hpf 5-10 [facility] Thin prep Papanicolaou smear with manual screeningOrdered By: Virginia Gu on 08-05-2023 Thin prep Papanicolaou smear with manual screening 3.2 g/dL 3.2-5.0 [facility] Thin prep Papanicolaou smear with manual screening 11 U/L 15-37 [facility] Urine blood detectionOrdered By: Virginia Gu on 08-05-2023 RBC Ql (U) 150 /ul Negative [facility] Urine clarityOrdered By: Ida Gu on 08-05-2023 Clarity (U) Clear Clear [facility] Urine color determinationOrd ered By: Virginia Gu on 08-05-2023 Color (U) Yellow Yellow [facility] Urine glucose detectionOrder ed By: Virginia Gu on 08-05-2023 Glucose Ql (U) 1000 mg/dl Normal [facility] Urine leukocyte esterase det ection by dipstickOrdered By: Virginia Gu on 08-05-2023 Leukocyte esterase Test strip Ql (U) 25 /ul Negative [facility] Urine pHOrdered By: Virginia Gu on 08-05-2023 pH (U) 6.5 [pH] 5.0 - 8.0 [facility] Urine sediment bacteria coun t by microscopy (number/high power field)Ordered By: Virginia Gu on 08-05-2023 Bacteria LM.HPF (Urine sed) [#/Area] 1 /[HPF] None Seen [facility] Urine specific gravity measu rementOrdered By: Virginia Gu on 08-05-2023 Specific gravity (U) [Rel density] 1.010 1.002-1.030 [facility] Urine urobilinogen measureme ntOrdered By: Virginia Gu on 08-05-2023 Urobilinogen Ql (U) Normal mg/dl Normal [facility] Venous blood pH measurementO rdered By: Virginia Gu on 08-05-2023 pH (BldV) 7.39 [pH] 7.32-7.42 [facility] Vital signsOrdered By: Kriss Gu on 08-05-2023 Oxygen saturation in Blood 88 % 50-70 [facility] .Auto Diffon 05-05-2023 Basophil, Absolute 0.1 10 3/mcL Normal 0.0-0.2 [facility] ([place]) Comment on above: Performed By: #### D HEAS, INSLN, CPEP, ANKUR, HCV1, MADYSON, GEOVANNA, GGT, PTH #### [address] [address] #### [id number], VIDH, 240571, GFR, MG, JESSICA, CMP, LIP, TSH, ADIFF, CRP, PHOS, CBC, ANEU #### [address] [address] Basophils/100 WBC (Bld) 0.8 % Normal 0.0-2.5 [facility] ([place]) Comment on above: Performed By: #### Amy RUSSAS, INSLN, CPEP, ANKUR, HCV1, MADYSON, GEOVANNA, GGT, PTH #### [place] [address] #### [id number], VIDH, 743572, GFR, MG, JESSICA, CMP, LIP, TSH, ADIFF, CRP, PHOS, CBC, ANEU #### [address] [address] Eosinophil, Absolute 0.0 10 3/mcL Normal 0.0-0.4 [facility] ([place]) Comment on above: Performed By: #### Amy BOWMAN, INSLN, CPEP, ANKUR, HCV1, MADYSON, GEOVANNA, GGT, PTH #### [place] [address] #### [id number], VIDH, 435491, GFR, MG, JESSICA, CMP, LIP, TSH, ADIFF, CRP, PHOS, CBC, ANEU #### [address] [address] Eosinophils/100 WBC (Bld) 0.1 % Normal 0.0-7.0 [facility] ([place]) Comment on above: Performed By: #### Amy BOWMAN, INSLN, CPEP, ANKUR, HCV1, MADYSON, GEOVANNA, GGT, PTH #### [place] [address] #### [id number], VIDH, 879459, GFR, MG, JESSICA, CMP, LIP, TSH, ADIFF, CRP, PHOS, CBC, ANEU #### [address] [address] Lymphocyte, Absolute 3.7 10 3/mcL Normal 0.8-3.9 [facility] ([place]) Comment on above: Performed By: #### Amy RUSSAS, INSLN, CPEP, ANKUR, HCV1, MADYSON, GEOVANNA, GGT, PTH #### [place] [address] #### [id number], VIDH, 279067, GFR, MG, JESSICA, CMP, LIP, TSH, ADIFF, CRP, PHOS, CBC, ANEU #### [address] [address] Lymphocytes/100 WBC (Bld) 28.0 % Normal 10.0-50.0 [facility] ([place]) Comment on above: Performed By: #### Amy RUSSAS, INSLN, CPEP, ANKUR, HCV1, MADYSON, GEOVANNA, GGT, PTH #### [place] [address] #### [id number], VIDH, 848227, GFR, MG, JESSICA, CMP, LIP, TSH, ADIFF, CRP, PHOS, CBC, ANEU #### [address] [address] Monocyte, Absolute 0.6 10 3/mcL Normal 0.2-1.0 [facility] ([place]) Comment on above: Performed By: #### Amy RUSSAS, INSLN, CPEP, ANKUR, HCV1, MADYSON, GEOVANNA, GGT, PTH #### [place] [address] #### [id number], VIDH, 798113, GFR, MG, JESSICA, CMP, LIP, TSH, ADIFF, CRP, PHOS, CBC, ANEU #### [address] [address] Monocytes/100 WBC (Bld) 4.8 % Normal 1.7-13.0 [facility] ([place]) Comment on above: Performed By: #### Amy HEAS, INSLN, CPEP, ANKUR, HCV1, MADYSON, GEOVANNA, GGT, PTH #### [place] [address] #### [id number], VIDH, 386875, GFR, MG, JESSICA, CMP, LIP, TSH, ADIFF, CRP, PHOS, CBC, ANEU #### [address] [address] Neutrophils/100 WBC (Bld) 66.3 % Normal 37.0-80.0 [facility] ([place]) Comment on above: Performed By: #### D HEAS, INSLN, CPEP, ANKUR, HCV1, MADYSON, GEOVANNA, GGT, PTH #### [address] [address] #### [id number], VIDH, 914228, GFR, MG, JESSICA, CMP, LIP, TSH, ADIFF, CRP, PHOS, CBC, ANEU #### [address] [address] .GFRon 05-05-2023 GFR 55 ml/min/1.73sqm Normal [facility] ([place]) Comment on above: Result Comment: GFR Population mean for , Non- Americans Ages 20-29 = 116 mL/min/1.73 sq.m. Ages 30-39 = 107 mL/min/1.73 sq.m. Ages 40-49 = 99 mL/min/1.73 sq.m. Ages 50-59 = 93 mL/min/1.73 sq.m. Ages 60-69 = 85 mL/min/1.73 sq.m. Ages 70+ = 75 mL/min/1.73 sq.m. Chronic Kidney Disease: Less than 60 mL/min/1.73 square meters End Stage Renal Disease: Less than 15 mL/min/1.73 square meters Performed By: #### D HEAS, INSLN, CPEP, ANKUR, HCV1, MADYSON, GEOVANNA, GGT, PTH #### [address] [address] #### [id number], VIDH, 898663, GFR, MG, JESSICA, CMP, LIP, TSH, ADIFF, CRP, PHOS, CBC, ANEU #### [address] [address] GFR Non- 45 ml/min/1.73sqm Normal [facility] ([place]) Comment on above: Result Comment: GFR Population mean for , Non- Americans Ages 20-29 = 116 mL/min/1.73 sq.m. Ages 30-39 = 107 mL/min/1.73 sq.m. Ages 40-49 = 99 mL/min/1.73 sq.m. Ages 50-59 = 93 mL/min/1.73 sq.m. Ages 60-69 = 85 mL/min/1.73 sq.m. Ages 70+ = 75 mL/min/1.73 sq.m. Chronic Kidney Disease: Less than 60 mL/min/1.73 square meters End Stage Renal Disease: Less than 15 mL/min/1.73 square meters Performed By: #### Amy RUSSAS, INSLN, CPEP, ANKUR, HCV1, MADYSON, GEOVANNA, GGT, PTH #### [place] [address] #### [id number], VIDH, 365615, GFR, MG, JESSICA, CMP, LIP, TSH, ADIFF, CRP, PHOS, CBC, ANEU #### [address] [address] .NEUABSon 05-05-2023 Neutrophil, Absolute 8.8 10 3/mcL High 2.9-6.2 [facility] ([place]) Comment on above: Performed By: #### Amy RUSSAS, INSLN, CPEP, ANKUR, HCV1, MADYSON, GEOVANNA, GGT, PTH #### [place] [address] #### [id number], VIDH, 513401, GFR, MG, JESSICA, CMP, LIP, TSH, ADIFF, CRP, PHOS, CBC, ANEU #### [address] [address] A1Con 05-05-2023 HbA1c (Bld) [Mass fraction] 7.6 % High 4.3-6.4 [facility] ([place]) Comment on above: Performed By: #### Amy HEAS, INSLN, CPEP, ANKUR, HCV1, MADYSON, GEOVANNA, GGT, PTH #### [place] [address] #### [id number], VIDH, 871704, GFR, MG, JESSICA, CMP, LIP, TSH, ADIFF, CRP, PHOS, CBC, ANEU #### [address] [address] CBCon 05-05-2023 Erythrocyte distribution width (RBC) [Ratio] 13.4 % Normal 11.5-14.5 [facility] ([place]) Comment on above: Performed By: #### D HEAS, INSLN, CPEP, ANKUR, HCV1, MADYSON, GEOVANNA, GGT, PTH #### [place] [address] #### [id number], VIDH, 599614, GFR, MG, JESSICA, CMP, LIP, TSH, ADIFF, CRP, PHOS, CBC, ANEU #### [address] [address] Hematocrit (Bld) [Volume fraction] 47.7 % High 37.0-47.0 [facility] ([place]) Comment on above: Performed By: #### Amy RUSSAS, INSLN, CPEP, ANKUR, HCV1, MADYSON, GEOVANNA, GGT, PTH #### [place] [address] #### [id number], VIDH, 466785, GFR, MG, JESSICA, CMP, LIP, TSH, ADIFF, CRP, PHOS, CBC, ANEU #### [address] [address] Hgb 16.0 G/dL Normal 12.0-16.0 [facility] ([place]) Comment on above: Performed By: #### Amy RUSSAS, INSLN, CPEP, ANKUR, HCV1, MADYSON, GEOVANNA, GGT, PTH #### [place] [address] #### [id number], VIDH, 887923, GFR, MG, JESSICA, CMP, LIP, TSH, ADIFF, CRP, PHOS, CBC, ANEU #### [address] [address] MCH (RBC) [Entitic mass] 30.8 pg Normal 27.0-31.2 [facility] ([place]) Comment on above: Performed By: #### Amy HEAS, INSLN, CPEP, ANKUR, HCV1, MADYSON, GEOVANNA, GGT, PTH #### [place] [address] #### [id number], VIDH, 004714, GFR, MG, JESSICA, CMP, LIP, TSH, ADIFF, CRP, PHOS, CBC, ANEU #### [address] [address] MCHC 33.5 G/dL Normal 33.0-37.0 [facility] ([place]) Comment on above: Performed By: #### D PETRONAAS, INSLN, CPEP, ANKUR, HCV1, MADYSON, GEOVANNA, GGT, PTH #### [place] [address] #### [id number], VIDH, 853103, GFR, MG, JESSICA, CMP, LIP, TSH, ADIFF, CRP, PHOS, CBC, ANEU #### [address] [address] MCV (RBC) [Entitic vol] 91.8 fL Normal 80.0-94.0 [facility] ([place]) Comment on above: Performed By: #### Amy RUSSAS, INSLN, CPEP, ANKUR, HCV1, MADYSON, GEOVANNA, GGT, PTH #### [place] [address] #### [id number], VIDH, 526052, GFR, MG, JESSICA, CMP, LIP, TSH, ADIFF, CRP, PHOS, CBC, ANEU #### [address] [address] Platelet 275 10 3/mcL Normal 130-400 [facility] ([place]) Comment on above: Performed By: #### Amy RUSSAS, INSLN, CPEP, ANKUR, HCV1, MADYSON, GEOVANNA, GGT, PTH #### [place] [address] #### [id number], VIDH, 750385, GFR, MG, JESSICA, CMP, LIP, TSH, ADIFF, CRP, PHOS, CBC, ANEU #### [address] [address] Platelet mean volume (Bld) [Entitic vol] 8.2 fL Normal 7.4-10.4 [facility] ([place]) Comment on above: Performed By: #### D HEAS, INSLN, CPEP, ANKUR, HCV1, MADYSON, GEOVANNA, GGT, PTH #### [address] [address] #### [id number], VIDH, 992420, GFR, MG, JESSICA, CMP, LIP, TSH, ADIFF, CRP, PHOS, CBC, ANEU #### [address] [address] RBC 5.19 10 6/mcL Normal 4.20-5.40 [facility] ([place]) Comment on above: Performed By: #### D HEAS, INSLN, CPEP, ANKUR, HCV1, MADYSON, GEOVANNA, GGT, PTH #### [address] [address] #### [id number], VIDH, 974482, GFR, MG, JESSICA, CMP, LIP, TSH, ADIFF, CRP, PHOS, CBC, ANEU #### [address] [address] WBC 13.2 10 3/mcL High 4.6-10.8 [facility] ([place] Comment on above: Performed By: #### Amy HEAS, INSLN, CPEP, ANKUR, HCV1, MADYSON, GEOVANNA, GGT, PTH #### [address] [address] #### [id number], VIDH, 277558, GFR, MG, JESSICA, CMP, LIP, TSH, ADIFF, CRP, PHOS, CBC, ANEU #### [address] [address] CMPon 05-05-2023 Albumin Level 4.2 G/dL Normal 3.4-4.8 [facility] ([place]) Comment on above: Performed By: #### D HEAS, INSLN, CPEP, ANKUR, HCV1, MADYSON, GEOVANNA, GGT, PTH #### [place] [address] #### [id number], VIDH, 226569, GFR, MG, JESSICA, CMP, LIP, TSH, ADIFF, CRP, PHOS, CBC, ANEU #### [address] [address] Albumin/Globulin [Mass ratio] 1.0 {ratio} Low 1.1-2.5 [facility] ([place]) Comment on above: Performed By: #### D HEAS, INSLN, CPEP, ANKUR, HCV1, MADYSON, GEOVANNA, GGT, PTH #### [place] [address] #### [id number], VIDH, 451484, GFR, MG, JESSICA, CMP, LIP, TSH, ADIFF, CRP, PHOS, CBC, ANEU #### [address] [address] ALP [Catalytic activity/Vol] 67 U/L Normal 40-135 [facility] ([place]) Comment on above: Performed By: #### D PETRONAAS, INSLN, CPEP, ANKUR, HCV1, MADYSON, GEOVANNA, GGT, PTH #### [place] [address] #### [id number], VIDH, 264256, GFR, MG, JESSICA, CMP, LIP, TSH, ADIFF, CRP, PHOS, CBC, ANEU #### [address] [address] ALT [Catalytic activity/Vol] 18 U/L Normal 14-59 [facility] ([place]) Comment on above: Performed By: #### D PETRONAAS, INSLN, CPEP, ANKUR, HCV1, MADYSON, GEOVANNA, GGT, PTH #### [place] [address] #### [id number], VIDH, 807687, GFR, MG, JESSICA, CMP, LIP, TSH, ADIFF, CRP, PHOS, CBC, ANEU #### [address] [address] AST [Catalytic activity/Vol] 11 U/L Normal 10-40 [facility] ([place]) Comment on above: Performed By: #### D HEAS, INSLN, CPEP, ANKUR, HCV1, MADYSON, GEOVANNA, GGT, PTH #### [place] [address] #### [id number], VIDH, 796320, GFR, MG, JESSICA, CMP, LIP, TSH, ADIFF, CRP, PHOS, CBC, ANEU #### [address] [address] Bili Total 0.5 mg/dL Normal 0.2-1.0 [facility] ([place]) Comment on above: Result Comment: Use of this assay is not recommended for patients undergoing treatment with eltrombopag due to the potential for falsely elevated results. Performed By: #### D HEAS, INSLN, CPEP, ANKUR, HCV1, MADYSON, GEOVANNA, GGT, PTH #### [place] [address] #### [id number], VIDH, 807723, GFR, MG, JESSICA, CMP, LIP, TSH, ADIFF, CRP, PHOS, CBC, ANEU #### [address] [address] BUN/Creatinine Ratio 15 ratio Normal 7-27 [facility] ([place]) Comment on above: Performed By: #### D HEAS, INSLN, CPEP, ANKUR, HCV1, MADYSON, GEOVANNA, GGT, PTH #### [place] [address] #### [id number], VIDH, 769037, GFR, MG, JESSICA, CMP, LIP, TSH, ADIFF, CRP, PHOS, CBC, ANEU #### [address] [address] Calcium [Mass/Vol] 9.5 mg/dL Normal 8.4-10.2 [facility] ([place]) Comment on above: Performed By: #### D HEAS, INSLN, CPEP, ANKUR, HCV1, MADYSON, GEOVANNA, GGT, PTH #### [place] [address] #### [id number], VIDH, 838067, GFR, MG, JESSICA, CMP, LIP, TSH, ADIFF, CRP, PHOS, CBC, ANEU #### [address] [address] Chloride [Moles/Vol] 101 mmol/L Normal 98-107 [facility] ([place]) Comment on above: Performed By: #### D HEAS, INSLN, CPEP, ANKUR, HCV1, MADYSON, GEOVANNA, GGT, PTH #### [address] [address] #### 585261, VIDH, 811312, GFR, MG, JESSICA, CMP, LIP, TSH, ADIFF, CRP, PHOS, CBC, ANEU #### [address] [address] CO2 [Moles/Vol] 27 mmol/L Normal 23-31 [facility] ([place]) Comment on above: Performed By: #### D HEAS, INSLN, CPEP, ANKUR, HCV1, MADYSON, GEOVANNA, GGT, PTH #### [address] [address] #### 975500, VIDH, 455848, GFR, MG, JESSICA, CMP, LIP, TSH, ADIFF, CRP, PHOS, CBC, ANEU #### [address] [address] Creatinine [Mass/Vol] 1.17 mg/dL High 0.55-1.02 [facility] ([place]) Comment on above: Performed By: #### D PETRONAAS, INSLN, CPEP, ANKUR, HCV1, MADYSON, GEOVANNA, GGT, PTH #### [address] [address] #### [id number], VIDH, 273613, GFR, MG, JESSICA, CMP, LIP, TSH, ADIFF, CRP, PHOS, CBC, ANEU #### [address] [address] Electrolyte Balance 11.0 mEq/L Normal 4.0-15.0 [facility] ([place]) Comment on above: Performed By: #### D HEAS, INSLN, CPEP, ANKUR, HCV1, MADYSON, GEOVANNA, GGT, PTH #### [address] [address] #### [id number], VIDH, 568822, GFR, MG, JESSICA, CMP, LIP, TSH, ADIFF, CRP, PHOS, CBC, ANEU #### [address] [address] Globulin 4.0 G/dL Normal [facility] ([place]) Comment on above: Performed By: #### D PETRONAAS, INSLN, CPEP, ANKUR, HCV1, MADYSON, GEOVANNA, GGT, PTH #### [place] [address] #### [id number], VIDH, 571214, GFR, MG, JESSICA, CMP, LIP, TSH, ADIFF, CRP, PHOS, CBC, ANEU #### [address] [address] Glucose [Mass/Vol] 150 mg/dL High 83-110 [facility] ([place]) Comment on above: Performed By: #### D PETRONAAS, INSLN, CPEP, ANKUR, HCV1, MADYSON, GEOVANNA, GGT, PTH #### [place] [address] #### 885115, VIDH, 139777, GFR, MG, JESSICA, CMP, LIP, TSH, ADIFF, CRP, PHOS, CBC, ANEU #### [address] [address] Potassium [Moles/Vol] 4.3 mmol/L Normal 3.5-5.1 [facility] ([place]) Comment on above: Performed By: #### Amy RUSSAS, INSLN, CPEP, ANKUR, HCV1, MADYSON, GEOVANNA, GGT, PTH #### [place] [address] #### [id number], VIDH, 191294, GFR, MG, JESSICA, CMP, LIP, TSH, ADIFF, CRP, PHOS, CBC, ANEU #### [address] [address] Sodium [Moles/Vol] 139 mmol/L Normal 136-145 [facility] ([place]) Comment on above: Performed By: #### Amy HEAS, INSLN, CPEP, ANKUR, HCV1, MADYSON, GEOVANNA, GGT, PTH #### [place] [address] #### [id number], VIDH, 864615, GFR, MG, JESSICA, CMP, LIP, TSH, ADIFF, CRP, PHOS, CBC, ANEU #### [address] [address] Total Protein 8.2 G/dL Normal 6.4-8.2 [facility] ([place]) Comment on above: Performed By: #### D HEAS, INSLN, CPEP, ANKUR, HCV1, MADYSON, GEOVANNA, GGT, PTH #### [address] [address] #### 546222, VIDH, 492411, GFR, MG, JESSICA, CMP, LIP, TSH, ADIFF, CRP, PHOS, CBC, ANEU #### [address] [address] Urea nitrogen [Mass/Vol] 17 mg/dL Normal 7-18 [facility] ([place]) Comment on above: Performed By: #### D HEAS, INSLN, CPEP, ANKUR, HCV1, MADYSON, GEOVANNA, GGT, PTH #### [place] [id number] #### [id number], VIDH, 522816, GFR, MG, JESSICA, CMP, LIP, TSH, ADIFF, CRP, PHOS, CBC, ANEU #### [address] [address] LABORATORYOrdered By: SYSTEM SYSTEM on 05-05-2023 25-hydroxyvitamin D3 [Mass/Vol] 25.9 ng/mL Invalid Interpretation Code AO ADM SS Comment on above: Interpretive Data: I nterpretive Values Based on Total 25(OH) Vitamin D: Deficient <20 ng/mL Insufficient 20 - <30 ng/mL Sufficient 30-100 ng/mL Albumin BCP dye [Mass/Vol] 4.2 G/dL Invalid Interpretation Code 3.4 - 4.8 G/dL AO ADM SS Albumin/Globulin [Mass ratio] 1.0 {ratio} Invalid Interpretation Code 1.1 - 2.5 ratio AO ADM SS ALP [Catalytic activity/Vol] 67 U/L Invalid Interpretation Code 40 - 135 U/L AO ADM SS ALT With P-5'-P [Catalytic activity/Vol] 18 U/L Invalid Interpretation Code 14 - 59 U/L AO ADM SS AST With P-5'-P [Catalytic activity/Vol] 11 U/L Invalid Interpretation Code 10 - 40 U/L AO ADM SS Basophil, Absolute 0.1 103/mcL Invalid Interpretation Code 0.0 - 0.2 10^3/mcL AO Workflow SS Basophils/100 WBC (Bld) 0.8 % Invalid Interpretation Code 0.0 - 2.5 % AO Workflow SS Bilirubin [Mass/Vol] 0.5 mg/dL Invalid Interpretation Code 0.2 - 1.0 mg/dL AO ADM SS Comment on above: Interpretive Data: U se of this assay is not recommended for patients undergoing treatment with eltrombopag due to the potential for falsely elevated results. Calcium [Mass/Vol] 9.5 mg/dL Invalid Interpretation Code 8.4 - 10.2 mg/dL AO ADM SS Chloride [Moles/Vol] 101 mmol/L Invalid Interpretation Code 98 - 107 mmol/L AO ADM SS CO2 [Moles/Vol] 27 mmol/L Invalid Interpretation Code 23 - 31 mmol/L AO ADM SS Creatinine [Mass/Vol] 1.17 mg/dL Invalid Interpretation Code 0.55 - 1.02 mg/dL AO ADM SS Electrolyte Balance 11.0 mEq/L Invalid Interpretation Code 4.0 - 15.0 mEq/L AO ADM SS Eosinophil, Absolute 0.0 103/mcL Invalid Interpretation Code 0.0 - 0.4 10^3/mcL AO Workflow SS Eosinophils/100 WBC (Bld) 0.1 % Invalid Interpretation Code 0.0 - 7.0 % AO Workflow SS Erythrocyte distribution width (RBC) [Ratio] 13.4 % Invalid Interpretation Code 11.5 - 14.5 % AO Workflow SS GFR/1.73 sq M.predicted among blacks MDRD (S/P/Bld) [Vol rate/Area] 55 ml/min/1.73sqm Invalid Interpretation Code AO Chemistry S Comment on above: Interpretive Data: GFR Population mean for , Non- Americans Ages 20-29 = 116 mL/min/1.73 sq.m. Ages 30-39 = 107 mL/min/1.73 sq.m. Ages 40-49 = 99 mL/min/1.73 sq.m. Ages 50-59 = 93 mL/min/1.73 sq.m. Ages 60-69 = 85 mL/min/1.73 sq.m. Ages 70+ = 75 mL/min/1.73 sq.m. Chronic Kidney Disease: Less than 60 mL/min/1.73 square meters End Stage Renal Disease: Less than 15 mL/min/1.73 square meters GFR/1.73 sq M.predicted among non-blacks MDRD (S/P/Bld) [Vol rate/Area] 45 ml/min/1.73sqm Invalid Interpretation Code AO Chemistry S Comment on above: Interpretive Data: GFR Population mean for , Non- Americans Ages 20-29 = 116 mL/min/1.73 sq.m. Ages 30-39 = 107 mL/min/1.73 sq.m. Ages 40-49 = 99 mL/min/1.73 sq.m. Ages 50-59 = 93 mL/min/1.73 sq.m. Ages 60-69 = 85 mL/min/1.73 sq.m. Ages 70+ = 75 mL/min/1.73 sq.m. Chronic Kidney Disease: Less than 60 mL/min/1.73 square meters End Stage Renal Disease: Less than 15 mL/min/1.73 square meters Globulin 4.0 G/dL Invalid Interpretation Code AO ADM SS Glucose [Mass/Vol] 150 mg/dL Invalid Interpretation Code 83 - 110 mg/dL AO ADM SS HbA1c (Bld) [Mass fraction] 7.6 % Invalid Interpretation Code 4.3 - 6.4 % AO ADM SS Hematocrit (Bld) [Volume fraction] 47.7 % Invalid Interpretation Code 37.0 - 47.0 % AO Workflow SS Hemoglobin (Bld) [Mass/Vol] 16.0 G/dL Invalid Interpretation Code 12.0 - 16.0 G/dL AO Workflow SS Lymphocyte, Absolute 3.7 103/mcL Invalid Interpretation Code 0.8 - 3.9 10^3/mcL AO Workflow SS Lymphocytes/100 WBC (Bld) 28.0 % Invalid Interpretation Code 10.0 - 50.0 % AO Workflow SS MCH (RBC) [Entitic mass] 30.8 pg Invalid Interpretation Code 27.0 - 31.2 pg AO Workflow SS MCHC 33.5 G/dL Invalid Interpretation Code 33.0 - 37.0 G/dL AO Workflow SS MCV (RBC) [Entitic vol] 91.8 fL Invalid Interpretation Code 80.0 - 94.0 fL AO Workflow SS Monocyte, Absolute 0.6 103/mcL Invalid Interpretation Code 0.2 - 1.0 10^3/mcL AO Workflow SS Monocytes/100 WBC (Bld) 4.8 % Invalid Interpretation Code 1.7 - 13.0 % AO Workflow SS Neutrophil, Absolute 8.8 103/mcL Invalid Interpretation Code 2.9 - 6.2 10^3/mcL AO Workflow SS Neutrophils/100 WBC (Bld) 66.3 % Invalid Interpretation Code 37.0 - 80.0 % AO Workflow SS Platelet mean volume (Bld) [Entitic vol] 8.2 fL Invalid Interpretation Code 7.4 - 10.4 fL AO Workflow SS Platelets (Bld) [#/Vol] 275 103/mcL Invalid Interpretation Code 130 - 400 10^3/mcL AO Workflow SS Potassium [Moles/Vol] 4.3 mmol/L Invalid Interpretation Code 3.5 - 5.1 mmol/L AO ADM SS Protein [Mass/Vol] 8.2 G/dL Invalid Interpretation Code 6.4 - 8.2 G/dL AO ADM SS RBC (Bld) [#/Vol] 5.19 106/mcL Invalid Interpretation Code 4.20 - 5.40 10^6/mcL AO Workflow SS Sodium [Moles/Vol] 139 mmol/L Invalid Interpretation Code 136 - 145 mmol/L AO ADM SS Urea nitrogen [Mass/Vol] 17 mg/dL Invalid Interpretation Code 7 - 18 mg/dL AO ADM SS Urea nitrogen/Creatinine [Mass ratio] 15 ratio Invalid Interpretation Code 7 - 27 ratio AO ADM SS WBC (Bld) [#/Vol] 13.2 103/mcL Invalid Interpretation Code 4.6 - 10.8 10^3/mcL AO Workflow SS LABORATORYOrdered By: Senait Yanez on 05-05-2023 Albumin DL <= 20 mg/L (U) [Mass/Vol] 5344 mcg/dL Invalid Interpretation Code AO ADM SS Albumin/Creatinine DL <= 20 mg/L (U) [Mass ratio] 79 mcg/mg Invalid Interpretation Code 0 - 30 mcg/mg AO ADM SS Cholesterol [Mass/Vol] 230 mg/dL Invalid Interpretation Code 0 - 200 mg/dL AO ADM SS Comment on above: Interpretive Data: C holesterol Reference Interval: Less than 200 Desirable 200-239 Borderline high risk 240 and above High risk Cholesterol in HDL [Mass/Vol] 51 mg/dL Invalid Interpretation Code 40 - 60 mg/dL AO ADM SS Cholesterol in LDL [Mass/Vol] 151 mg/dL Invalid Interpretation Code 0 - 130 mg/dL AO ADM SS Creatinine (U) [Mass/Vol] 67.8 mg/dL Invalid Interpretation Code 28.0 - 117.0 mg/dL AO ADM SS Triglyceride [Mass/Vol] 141 mg/dL Invalid Interpretation Code 0 - 150 mg/dL AO ADM SS Comment on above: Interpretive Data: T riglyceride Reference Interval: Less than 150 Normal 150-199 Borderline high risk 200-499 High risk 500 or higher Very high risk LIPIDon 05-05-2023 Cholesterol [Mass/Vol] 230 mg/dL High 0-200 [facility] ([place]) Comment on above: Result Comment: Chol esterol Reference Interval: Less than 200 Desirable 200-239 Borderline high risk 240 and above High risk Performed By: #### D PETRONAAS, INSLN, CPEP, ANKUR, HCV1, MADYSON, GEOVANNA, GGT, PTH #### [place] [address] #### [id number], VIDH, 215432, GFR, MG, JESSICA, CMP, LIP, TSH, ADIFF, CRP, PHOS, CBC, ANEU #### [address] [address] Cholesterol in HDL [Mass/Vol] 51 mg/dL Normal 40-60 [facility] ([place]) Comment on above: Performed By: #### D PETRONAAS, INSLN, CPEP, ANKUR, HCV1, MADYSON, GEOVANNA, GGT, PTH #### [address] [address] #### [id number], VIDH, 273902, GFR, MG, JESSICA, CMP, LIP, TSH, ADIFF, CRP, PHOS, CBC, ANEU #### [address] [address] Cholesterol in LDL [Mass/Vol] 151 mg/dL High 0-130 [facility] ([place]) Comment on above: Performed By: #### D HEAS, INSLN, CPEP, ANKUR, HCV1, MADYSON, GEOVANNA, GGT, PTH #### [address] [address] #### 989872, VIDH, 589751, GFR, MG, JESSICA, CMP, LIP, TSH, ADIFF, CRP, PHOS, CBC, ANEU #### [address] [address] Triglyceride [Mass/Vol] 141 mg/dL Normal 0-150 [facility] ([place]) Comment on above: Result Comment: Trig lyceride Reference Interval: Less than 150 Normal 150-199 Borderline high risk 200-499 High risk 500 or higher Very high risk Performed By: #### D PETRONAAS, INSLN, CPEP, ANKUR, HCV1, MADYSON, GEOVANNA, GGT, PTH #### [address] [address] #### [id number], VIDH, 494810, GFR, MG, JESSICA, CMP, LIP, TSH, ADIFF, CRP, PHOS, CBC, ANEU #### [address] [address] MALBRon 05-05-2023 U Creatinine 67.8 mg/dL Normal 28.0-117.0 [facility] ([place]) Comment on above: Performed By: #### D PETRONAAS, INSLN, CPEP, ANKUR, HCV1, MADYSON, GEOVANNA, GGT, PTH #### [address] [address] #### [id number], VIDH, 033342, GFR, MG, JESSICA, CMP, LIP, TSH, ADIFF, CRP, PHOS, CBC, ANEU #### [address] [address] U Microalb 5344 mcg/dL Normal [facility] ([place]) Comment on above: Performed By: #### D HEAS, INSLN, CPEP, ANKUR, HCV1, MADYSON, GEOVANNA, GGT, PTH #### [address] [address] #### [id number], VIDH, 708997, GFR, MG, JESSICA, CMP, LIP, TSH, ADIFF, CRP, PHOS, CBC, ANEU #### [address] [address] U Ratio Alb/Cre 79 mcg/mg High 0-30 [facility] ([place]) Comment on above: Performed By: #### D HEAS, INSLN, CPEP, ANKUR, HCV1, MADYSON, GEOVANNA, GGT, PTH #### [address] [address] #### 723993, VIDH, 160930, GFR, MG, JESSICA, CMP, LIP, TSH, ADIFF, CRP, PHOS, CBC, ANEU #### [place] [address] [place], [place] [address] VIDHon 05-05-2023 Vit. D 25-Hydroxy 25.9 ng/mL Normal [facility] ([place]) Comment on above: Result Comment: Inte rpretive Values Based on Total 25(OH) Vitamin D: Deficient <20 ng/mL Insufficient 20 - <30 ng/mL Sufficient 30-100 ng/mL Performed By: #### D HEAS, INSLN, CPEP, ANKUR, HCV1, MADYSON, GEOVANNA, GGT, PTH #### [place] [id number] #### [id number], VIDH, 447528, GFR, MG, JESSICA, CMP, LIP, TSH, ADIFF, CRP, PHOS, CBC, ANEU #### [address] [address] LABORATORYOrdered By: SYSTEM SYSTEM on 11-04-2022 25-hydroxyvitamin D3 [Mass/Vol] 34.6 ng/mL Invalid Interpretation Code AO ADM SS Albumin BCP dye [Mass/Vol] 4.5 G/dL Invalid Interpretation Code 3.4 - 4.8 G/dL AO ADM SS Albumin/Globulin [Mass ratio] 1.2 {ratio} Invalid Interpretation Code 1.1 - 2.5 ratio AO ADM SS ALP [Catalytic activity/Vol] 65 U/L Invalid Interpretation Code 40 - 135 U/L AO ADM SS ALT With P-5'-P [Catalytic activity/Vol] 24 U/L Invalid Interpretation Code 14 - 59 U/L AO ADM SS AST With P-5'-P [Catalytic activity/Vol] 20 U/L Invalid Interpretation Code 10 - 40 U/L AO ADM SS Bilirubin [Mass/Vol] 0.4 mg/dL Invalid Interpretation Code 0.2 - 1.0 mg/dL AO ADM SS Calcium [Mass/Vol] 9.3 mg/dL Invalid Interpretation Code 8.4 - 10.2 mg/dL AO ADM SS Chloride [Moles/Vol] 103 mmol/L Invalid Interpretation Code 98 - 107 mmol/L AO ADM SS CO2 [Moles/Vol] 28 mmol/L Invalid Interpretation Code 23 - 31 mmol/L AO ADM SS Creatinine [Mass/Vol] 0.99 mg/dL Invalid Interpretation Code 0.55 - 1.02 mg/dL AO ADM SS Electrolyte Balance 9.0 mEq/L Invalid Interpretation Code 4.0 - 15.0 mEq/L AO ADM SS GFR/1.73 sq M.predicted among blacks MDRD (S/P/Bld) [Vol rate/Area] 66 ml/min/1.73sqm Invalid Interpretation Code AO Chemistry S GFR/1.73 sq M.predicted among non-blacks MDRD (S/P/Bld) [Vol rate/Area] 55 ml/min/1.73sqm Invalid Interpretation Code AO Chemistry S Globulin 3.6 G/dL Invalid Interpretation Code AO ADM SS Glucose [Mass/Vol] 183 mg/dL Invalid Interpretation Code 83 - 110 mg/dL AO ADM SS HbA1c (Bld) [Mass fraction] 7.8 % Invalid Interpretation Code 4.3 - 6.4 % AO ADM SS Potassium [Moles/Vol] 5.2 mmol/L Invalid Interpretation Code 3.5 - 5.1 mmol/L AO ADM SS Protein [Mass/Vol] 8.1 G/dL Invalid Interpretation Code 6.4 - 8.2 G/dL AO ADM SS Sodium [Moles/Vol] 140 mmol/L Invalid Interpretation Code 136 - 145 mmol/L AO ADM SS Urea nitrogen [Mass/Vol] 16 mg/dL Invalid Interpretation Code 7 - 18 mg/dL AO ADM SS Urea nitrogen/Creatinine [Mass ratio] 16 ratio Invalid Interpretation Code 7 - 27 ratio AO ADM SS LABORATORYOrdered By: Daxa Mora on 11-04-2022 Basophil, Absolute 0.1 103/mcL Invalid Interpretation Code 0.0 - 0.2 10^3/mcL AO Workflow SS Basophils/100 WBC (Bld) 0.7 % Invalid Interpretation Code 0.0 - 2.5 % AO Workflow SS Eosinophil, Absolute 0.0 103/mcL Invalid Interpretation Code 0.0 - 0.4 10^3/mcL AO Workflow SS Eosinophils/100 WBC (Bld) 0.1 % Invalid Interpretation Code 0.0 - 7.0 % AO Workflow SS Erythrocyte distribution width (RBC) [Ratio] 14.3 % Invalid Interpretation Code 11.5 - 14.5 % AO Workflow SS Hematocrit (Bld) [Volume fraction] 47.4 % Invalid Interpretation Code 37.0 - 47.0 % AO Workflow SS Hemoglobin (Bld) [Mass/Vol] 15.7 G/dL Invalid Interpretation Code 12.0 - 16.0 G/dL AO Workflow SS Lymphocyte, Absolute 2.8 103/mcL Invalid Interpretation Code 0.8 - 3.9 10^3/mcL AO Workflow SS Lymphocytes/100 WBC (Bld) 20.9 % Invalid Interpretation Code 10.0 - 50.0 % AO Workflow SS MCH (RBC) [Entitic mass] 30.4 pg Invalid Interpretation Code 27.0 - 31.2 pg AO Workflow SS MCHC 33.1 G/dL Invalid Interpretation Code 33.0 - 37.0 G/dL AO Workflow SS MCV (RBC) [Entitic vol] 91.7 fL Invalid Interpretation Code 80.0 - 94.0 fL AO Workflow SS Monocyte, Absolute 0.6 103/mcL Invalid Interpretation Code 0.2 - 1.0 10^3/mcL AO Workflow SS Monocytes/100 WBC (Bld) 4.3 % Invalid Interpretation Code 1.7 - 13.0 % AO Workflow SS Neutrophil, Absolute 10.0 103/mcL Invalid Interpretation Code 2.9 - 6.2 10^3/mcL AO Workflow SS Neutrophils/100 WBC (Bld) 74.0 % Invalid Interpretation Code 37.0 - 80.0 % AO Workflow SS Platelet Estimate Normal *NA* (11/04/22 12:44 PM) Invalid Interpretation Code AO Workflow SS Platelet mean volume (Bld) [Entitic vol] 8.5 fL Invalid Interpretation Code 7.4 - 10.4 fL AO Workflow SS Platelets (Bld) [#/Vol] 315 103/mcL Invalid Interpretation Code 130 - 400 10^3/mcL AO Workflow SS RBC (Bld) [#/Vol] 5.17 106/mcL Invalid Interpretation Code 4.20 - 5.40 10^6/mcL AO Workflow SS WBC (Bld) [#/Vol] 13.5 103/mcL Invalid Interpretation Code 4.6 - 10.8 10^3/mcL AO Workflow SS LABORATORYOrdered By: Daxa Izquierdo on 11-04-2022 Cholesterol [Mass/Vol] 156 mg/dL Invalid Interpretation Code 0 - 200 mg/dL AO ADM SS Cholesterol in HDL [Mass/Vol] 51 mg/dL Invalid Interpretation Code 40 - 60 mg/dL AO ADM SS Cholesterol in LDL [Mass/Vol] 81 mg/dL Invalid Interpretation Code 0 - 130 mg/dL AO ADM SS Triglyceride [Mass/Vol] 122 mg/dL Invalid Interpretation Code 0 - 150 mg/dL AO ADM SS LABORATORYOrdered By: Daxa Mora on 05-06-2022 Albumin BCP dye [Mass/Vol] 4.2 G/dL Invalid Interpretation Code 3.4 - 4.8 G/dL AO ADM SS Albumin/Globulin [Mass ratio] 1.2 {ratio} Invalid Interpretation Code 1.1 - 2.5 ratio AO ADM SS ALP [Catalytic activity/Vol] 60 U/L Invalid Interpretation Code 40 - 135 U/L AO ADM SS ALT With P-5'-P [Catalytic activity/Vol] 25 U/L Invalid Interpretation Code 14 - 59 U/L AO ADM SS AST With P-5'-P [Catalytic activity/Vol] 19 U/L Invalid Interpretation Code 10 - 40 U/L AO ADM SS Bilirubin [Mass/Vol] 0.5 mg/dL Invalid Interpretation Code 0.2 - 1.0 mg/dL AO ADM SS Calcium [Mass/Vol] 9.6 mg/dL Invalid Interpretation Code 8.4 - 10.2 mg/dL AO ADM SS Chloride [Moles/Vol] 104 mmol/L Invalid Interpretation Code 98 - 107 mmol/L AO ADM SS Cholesterol [Mass/Vol] 138 mg/dL Invalid Interpretation Code 0 - 200 mg/dL AO ADM SS Cholesterol in HDL [Mass/Vol] 47 mg/dL Invalid Interpretation Code 40 - 60 mg/dL AO ADM SS Cholesterol in LDL [Mass/Vol] 68 mg/dL Invalid Interpretation Code 0 - 130 mg/dL AO ADM SS CO2 [Moles/Vol] 28 mmol/L Invalid Interpretation Code 23 - 31 mmol/L AO ADM SS Creatinine [Mass/Vol] 0.78 mg/dL Invalid Interpretation Code 0.55 - 1.02 mg/dL AO ADM SS Electrolyte Balance 8.0 mEq/L Invalid Interpretation Code 4.0 - 15.0 mEq/L AO ADM SS Globulin 3.4 G/dL Invalid Interpretation Code AO ADM SS Glucose [Mass/Vol] 136 mg/dL Invalid Interpretation Code 83 - 110 mg/dL AO ADM SS HbA1c (Bld) [Mass fraction] 7.3 % Invalid Interpretation Code 4.3 - 6.4 % AO ADM SS Potassium [Moles/Vol] 4.8 mmol/L Invalid Interpretation Code 3.5 - 5.1 mmol/L AO ADM SS Protein [Mass/Vol] 7.6 G/dL Invalid Interpretation Code 6.4 - 8.2 G/dL AO ADM SS Sodium [Moles/Vol] 140 mmol/L Invalid Interpretation Code 136 - 145 mmol/L AO ADM SS Triglyceride [Mass/Vol] 113 mg/dL Invalid Interpretation Code 0 - 150 mg/dL AO ADM SS Urea nitrogen [Mass/Vol] 17 mg/dL Invalid Interpretation Code 7 - 18 mg/dL AO ADM SS Urea nitrogen/Creatinine [Mass ratio] 22 ratio Invalid Interpretation Code 7 - 27 ratio AO ADM SS Vit. D 25-Hydroxy 37.4 ng/mL Invalid Interpretation Code AO ADM SS LABORATORYOrdered By: Daxa Izquierdo on 05-06-2022 Basophil, Absolute 0.1 103/mcL Invalid Interpretation Code 0.0 - 0.2 10^3/mcL AO Workflow SS Basophils/100 WBC (Bld) 1.2 % Invalid Interpretation Code 0.0 - 2.5 % AO Workflow SS Eosinophil, Absolute 0.0 103/mcL Invalid Interpretation Code 0.0 - 0.4 10^3/mcL AO Workflow SS Eosinophils/100 WBC (Bld) 0.1 % Invalid Interpretation Code 0.0 - 7.0 % AO Workflow SS Erythrocyte distribution width (RBC) [Ratio] 13.0 % Invalid Interpretation Code 11.5 - 14.5 % AO Workflow SS Hematocrit (Bld) [Volume fraction] 43.5 % Invalid Interpretation Code 37.0 - 47.0 % AO Workflow SS Hemoglobin (Bld) [Mass/Vol] 14.8 G/dL Invalid Interpretation Code 12.0 - 16.0 G/dL AO Workflow SS Lymphocyte, Absolute 2.9 103/mcL Invalid Interpretation Code 0.8 - 3.9 10^3/mcL AO Workflow SS Lymphocytes/100 WBC (Bld) 25.0 % Invalid Interpretation Code 10.0 - 50.0 % AO Workflow SS MCH (RBC) [Entitic mass] 30.9 pg Invalid Interpretation Code 27.0 - 31.2 pg AO Workflow SS MCHC 34.1 G/dL Invalid Interpretation Code 33.0 - 37.0 G/dL AO Workflow SS MCV (RBC) [Entitic vol] 90.7 fL Invalid Interpretation Code 80.0 - 94.0 fL AO Workflow SS Monocyte, Absolute 0.3 103/mcL Invalid Interpretation Code 0.2 - 1.0 10^3/mcL AO Workflow SS Monocytes/100 WBC (Bld) 2.9 % Invalid Interpretation Code 1.7 - 13.0 % AO Workflow SS Neutrophil, Absolute 8.3 103/mcL Invalid Interpretation Code 2.9 - 6.2 10^3/mcL AO Workflow SS Neutrophils/100 WBC (Bld) 70.8 % Invalid Interpretation Code 37.0 - 80.0 % AO Workflow SS Platelet mean volume (Bld) [Entitic vol] 7.9 fL Invalid Interpretation Code 7.4 - 10.4 fL AO Workflow SS Platelets (Bld) [#/Vol] 322 103/mcL Invalid Interpretation Code 130 - 400 10^3/mcL AO Workflow SS RBC (Bld) [#/Vol] 4.80 106/mcL Invalid Interpretation Code 4.20 - 5.40 10^6/mcL AO Workflow SS WBC (Bld) [#/Vol] 11.8 103/mcL Invalid Interpretation Code 4.6 - 10.8 10^3/mcL AO Workflow SS LABORATORYOrdered By: SYSTEM SYSTEM on 05-06-2022 GFR 87 ml/min/1.73sqm Invalid Interpretation Code AO Chemistry S GFR Non- 72 ml/min/1.73sqm Inval id Interpretation Code AO Chemistry S LABORATORYOrdered By: Libia Singh on 11-05-2021 Albumin BCP dye [Mass/Vol] 4.0 G/dL Invalid Interpretation Code 3.4 - 4.8 G/dL AO ADM SS Albumin/Globulin [Mass ratio] 1.1 {ratio} Invalid Interpretation Code 1.1 - 2.5 ratio AO ADM SS ALP [Catalytic activity/Vol] 61 U/L Invalid Interpretation Code 40 - 135 U/L AO ADM SS ALT With P-5'-P [Catalytic activity/Vol] 27 U/L Invalid Interpretation Code 14 - 59 U/L AO ADM SS AST With P-5'-P [Catalytic activity/Vol] 17 U/L Invalid Interpretation Code 10 - 40 U/L AO ADM SS Bilirubin [Mass/Vol] 0.4 mg/dL Invalid Interpretation Code 0.2 - 1.0 mg/dL AO ADM SS C-Reactive Protein mg/dL Invalid Interpretation Code 0.0 - 0.9 mg/dL AO Chemistry S Calcium [Mass/Vol] 9.2 mg/dL Invalid Interpretation Code 8.4 - 10.2 mg/dL AO ADM SS Chloride [Moles/Vol] 103 mmol/L Invalid Interpretation Code 98 - 107 mmol/L AO ADM SS Cholesterol [Mass/Vol] 141 mg/dL Invalid Interpretation Code 0 - 200 mg/dL AO ADM SS Cholesterol in HDL [Mass/Vol] 41 mg/dL Invalid Interpretation Code 40 - 60 mg/dL AO ADM SS Cholesterol in LDL [Mass/Vol] 77 mg/dL Invalid Interpretation Code 0 - 130 mg/dL AO ADM SS CO2 [Moles/Vol] 26 mmol/L Invalid Interpretation Code 23 - 31 mmol/L AO ADM SS Creatinine [Mass/Vol] 0.92 mg/dL Invalid Interpretation Code 0.55 - 1.02 mg/dL AO ADM SS Electrolyte Balance 8.0 mEq/L Invalid Interpretation Code 4.0 - 15.0 mEq/L AO ADM SS Globulin 3.8 G/dL Invalid Interpretation Code AO ADM SS Glucose [Mass/Vol] 200 mg/dL Invalid Interpretation Code 83 - 110 mg/dL AO ADM SS HbA1c (Bld) [Mass fraction] 7.3 % Invalid Interpretation Code 4.3 - 6.4 % AO ADM SS Potassium [Moles/Vol] 5.0 mmol/L Invalid Interpretation Code 3.5 - 5.1 mmol/L AO ADM SS Protein [Mass/Vol] 7.8 G/dL Invalid Interpretation Code 6.4 - 8.2 G/dL AO ADM SS Sodium [Moles/Vol] 137 mmol/L Invalid Interpretation Code 136 - 145 mmol/L AO ADM SS Triglyceride [Mass/Vol] 115 mg/dL Invalid Interpretation Code 0 - 150 mg/dL AO ADM SS Urea nitrogen [Mass/Vol] 20 mg/dL Invalid Interpretation Code 7 - 18 mg/dL AO ADM SS Urea nitrogen/Creatinine [Mass ratio] 22 ratio Invalid Interpretation Code 7 - 27 ratio AO ADM SS Vit. D 25-Hydroxy 38.7 ng/mL Invalid Interpretation Code AO ADM SS LABORATORYOrdered By: Daxa Izquierdo on 11-05-2021 Basophil, Absolute 0.10 103/mcL Invalid Interpretation Code 0.00 - 0.19 10^3/mcL AO Auto Heme SS Basophils/100 WBC (Bld) 0.4 % Invalid Interpretation Code 0.0 - 2.5 % AO Auto Heme SS Eosinophil, Absolute 0.00 103/mcL Invalid Interpretation Code 0.00 - 0.40 10^3/mcL AO Auto Heme SS Eosinophils/100 WBC (Bld) 0.2 % Invalid Interpretation Code 0.0 - 7.0 % AO Auto Heme SS Erythrocyte distribution width (RBC) [Ratio] 13.3 % Invalid Interpretation Code 11.5 - 14.5 % AO Auto Heme SS ESR 15 minute reading (Bld) [Velocity] 6 mm/hr Invalid Interpretation Code 0 - 30 mm/hr AO Man Heme SS Hematocrit (Bld) [Volume fraction] 43.7 % Invalid Interpretation Code 37.0 - 47.0 % AO Auto Heme SS Hemoglobin (Bld) [Mass/Vol] 15.0 G/dL Invalid Interpretation Code 12.0 - 16.0 G/dL AO Auto Heme SS Lymphocyte, Absolute 2.50 103/mcL Invalid Interpretation Code 0.77 - 3.85 10^3/mcL AO Auto Heme SS Lymphocytes/100 WBC (Bld) 21.2 % Invalid Interpretation Code 10.0 - 50.0 % AO Auto Heme SS MCH (RBC) [Entitic mass] 31.4 pg Invalid Interpretation Code 27.0 - 31.2 pg AO Auto Heme SS MCHC (RBC) [Mass/Vol] 34.4 G/dL Invalid Interpretation Code 33.0 - 37.0 G/dL AO Auto Heme SS MCV (RBC) [Entitic vol] 91.2 fL Invalid Interpretation Code 80.0 - 94.0 fL AO Auto Heme SS Monocyte, Absolute 0.50 103/mcL Invalid Interpretation Code 0.15 - 1.00 10^3/mcL AO Auto Heme SS Monocytes/100 WBC (Bld) 4.1 % Invalid Interpretation Code 1.7 - 13.0 % AO Auto Heme SS Neutrophil, Absolute 8.60 103/mcL Invalid Interpretation Code 2.85 - 6.16 10^3/mcL AO Auto Heme SS Neutrophils/100 WBC (Bld) 74.1 % Invalid Interpretation Code 37.0 - 80.0 % AO Auto Heme SS Platelet mean volume (Bld) [Entitic vol] 8.7 fL Invalid Interpretation Code 7.4 - 10.4 fL AO Auto Heme SS Platelets (Bld) [#/Vol] 387 103/mcL Invalid Interpretation Code 130 - 400 10^3/mcL AO Auto Heme SS RBC (Bld) [#/Vol] 4.79 106/mcL Invalid Interpretation Code 4.20 - 5.40 10^6/mcL AO Auto Heme SS WBC (Bld) [#/Vol] 11.70 103/mcL Invalid Interpretation Code 4.60 - 10.80 10^3/mcL AO Auto Heme SS LABORATORYOrdered By: SYSTEM SYSTEM on 11-05-2021 GFR 72 ml/min/1.73sqm Invalid Interpretation Code AO Chemistry S GFR Non- 60 ml/min/1.73sqm Inval id Interpretation Code AO Chemistry S LABORATORYOrdered By: Rylee Funes on 04-24-2021 Albumin BCP dye [Mass/Vol] 4.2 G/dL Invalid Interpretation Code 3.4 - 4.8 G/dL AO ADM SS Albumin/Globulin [Mass ratio] 1.1 {ratio} Invalid Interpretation Code 1.1 - 2.5 ratio AO ADM SS ALP [Catalytic activity/Vol] 59 U/L Invalid Interpretation Code 40 - 135 U/L AO ADM SS ALT With P-5'-P [Catalytic activity/Vol] 26 U/L Invalid Interpretation Code 14 - 59 U/L AO ADM SS AST With P-5'-P [Catalytic activity/Vol] 15 U/L Invalid Interpretation Code 10 - 40 U/L AO ADM SS Basophil, Absolute 0.10 103/mcL Invalid Interpretation Code 0.00 - 0.19 10^3/mcL AO Auto Heme SS Basophils/100 WBC (Bld) 0.9 % Invalid Interpretation Code 0.0 - 2.5 % AO Auto Heme SS Bilirubin [Mass/Vol] 0.5 mg/dL Invalid Interpretation Code 0.2 - 1.0 mg/dL AO ADM SS Calcium [Mass/Vol] 9.1 mg/dL Invalid Interpretation Code 8.4 - 10.2 mg/dL AO ADM SS Chloride [Moles/Vol] 102 mmol/L Invalid Interpretation Code 98 - 107 mmol/L AO ADM SS Cholesterol [Mass/Vol] 153 mg/dL Invalid Interpretation Code 0 - 200 mg/dL AO ADM SS Cholesterol in HDL [Mass/Vol] 45 mg/dL Invalid Interpretation Code 40 - 60 mg/dL AO ADM SS Cholesterol in LDL [Mass/Vol] 74 mg/dL Invalid Interpretation Code 0 - 130 mg/dL AO ADM SS CO2 [Moles/Vol] 29 mmol/L Invalid Interpretation Code 23 - 31 mmol/L AO ADM SS Creatinine [Mass/Vol] 0.90 mg/dL Invalid Interpretation Code 0.55 - 1.02 mg/dL AO ADM SS Electrolyte Balance 10.0 mEq/L Invalid Interpretation Code AO ADM SS Eosinophil, Absolute 0.00 103/mcL Invalid Interpretation Code 0.00 - 0.40 10^3/mcL AO Auto Heme SS Eosinophils/100 WBC (Bld) 0.2 % Invalid Interpretation Code 0.0 - 7.0 % AO Auto Heme SS Erythrocyte distribution width (RBC) [Ratio] 13.1 % Invalid Interpretation Code 11.5 - 14.5 % AO Auto Heme SS Globulin 3.7 G/dL Invalid Interpretation Code AO ADM SS Glucose [Mass/Vol] 131 mg/dL Invalid Interpretation Code 83 - 110 mg/dL AO ADM SS Hematocrit (Bld) [Volume fraction] 45.6 % Invalid Interpretation Code 37.0 - 47.0 % AO Auto Heme SS Hemoglobin (Bld) [Mass/Vol] 15.6 G/dL Invalid Interpretation Code 12.0 - 16.0 G/dL AO Auto Heme SS Lymphocyte, Absolute 3.20 103/mcL Invalid Interpretation Code 0.77 - 3.85 10^3/mcL AO Auto Heme SS Lymphocytes/100 WBC (Bld) 24.6 % Invalid Interpretation Code 10.0 - 50.0 % AO Auto Heme SS MCH (RBC) [Entitic mass] 31.9 pg Invalid Interpretation Code 27.0 - 31.2 pg AO Auto Heme SS MCHC (RBC) [Mass/Vol] 34.2 G/dL Invalid Interpretation Code 33.0 - 37.0 G/dL AO Auto Heme SS MCV (RBC) [Entitic vol] 93.2 fL Invalid Interpretation Code 80.0 - 94.0 fL AO Auto Heme SS Monocyte, Absolute 0.60 103/mcL Invalid Interpretation Code 0.15 - 1.00 10^3/mcL AO Auto Heme SS Monocytes/100 WBC (Bld) 5.0 % Invalid Interpretation Code 1.7 - 13.0 % AO Auto Heme SS Neutrophil, Absolute 8.90 103/mcL Invalid Interpretation Code 2.85 - 6.16 10^3/mcL AO Auto Heme SS Neutrophils/100 WBC (Bld) 69.3 % Invalid Interpretation Code 37.0 - 80.0 % AO Auto Heme SS Platelet mean volume (Bld) [Entitic vol] 8.8 fL Invalid Interpretation Code 7.4 - 10.4 fL AO Auto Heme SS Platelets (Bld) [#/Vol] 360 103/mcL Invalid Interpretation Code 130 - 400 10^3/mcL AO Auto Heme SS Potassium [Moles/Vol] 4.7 mmol/L Invalid Interpretation Code 3.5 - 5.1 mmol/L AO ADM SS Protein [Mass/Vol] 7.9 G/dL Invalid Interpretation Code 6.4 - 8.2 G/dL AO ADM SS RBC (Bld) [#/Vol] 4.89 106/mcL Invalid Interpretation Code 4.20 - 5.40 10^6/mcL AO Auto Heme SS Sodium [Moles/Vol] 141 mmol/L Invalid Interpretation Code 136 - 145 mmol/L AO ADM SS Triglyceride [Mass/Vol] 168 mg/dL Invalid Interpretation Code 0 - 150 mg/dL AO ADM SS Urea nitrogen [Mass/Vol] 20 mg/dL Invalid Interpretation Code 7 - 18 mg/dL AO ADM SS Urea nitrogen/Creatinine [Mass ratio] 22 ratio Invalid Interpretation Code 7 - 27 ratio AO ADM SS Vit. D 25-Hydroxy 50.2 ng/mL Invalid Interpretation Code AO ADM SS WBC (Bld) [#/Vol] 12.90 103/mcL Invalid Interpretation Code 4.60 - 10.80 10^3/mcL AO Auto Heme SS LABORATORYOrdered By: SYSTEM SYSTEM on 04-24-2021 GFR 74 ml/min/1.73sqm Invalid Interpretation Code AO Chemistry S GFR Non- 61 ml/min/1.73sqm Inval id Interpretation Code AO Chemistry S LABORATORYOrdered By: Karmen Jones on 04-24-2021 HbA1c (Bld) [Mass fraction] 6.6 % Invalid Interpretation Code 4.3 - 6.4 % AO ADM SS Vital Signs Date Time Vital Sign Value Performing Clinician Facility 06-08-2024 16:41-0500 Heart rate 81 /min TYSON KNAPP MD [facility] 06-08-2024 16:41-0500 Respiratory rate 18 /min TYSON KNAPP MD [facility] 06-08-2024 16:12-0500 Body temperature 98.06 [degF] TYSON KNAPP MD [facility] 06-08-2024 16:12-0500 Body weight 50 kg TYSON KNAPP MD [facility] 06-08-2024 16:12-0500 Diastolic Blood Pressure Non-Invasive 62 mm[Hg] TYSON KNAPP MD [facility] 06-08-2024 16:12-0500 Heart rate 101 /min TYSON KNAPP MD [facility] 06-08-2024 16:12-0500 Respiratory rate 16 /min TYSON KNAPP MD [facility] 06-08-2024 16:12-0500 Systolic Blood Pressure Non-Invasive 163 mm[Hg] TYSON KNAPP MD [facility] 03-07-2024 16:30-0400 Body temperature 97.2 [degF] Braden Hopkins MD MPH Work Phone: [facility] 03-07-2024 16:30-0400 Diastolic blood pressure 72 mm[Hg] Braden Hopkins MD MPH Work Phone: [facility] 03-07-2024 16:30-0400 Heart rate 74 /min Braden Hopkins MD MPH Work Phone: [facility] 03-07-2024 16:30-0400 Respiratory rate 18 /min Braden Hopkins MD MPH Work Phone: [facility] 03-07-2024 16:30-0400 SaO2% (BldA) [Mass fraction] 96 % Braden Hopkins MD MPH Work Phone: [facility] 03-07-2024 16:30-0400 Systolic blood pressure 141 mm[Hg] Braden Hopkins MD MPH Work Phone: [facility] 03-07-2024 11:49-0400 Body height 154.9 cm Braden Hopkins MD MPH Work Phone: [facility] 03-07-2024 11:49-0400 Body mass index (BMI) [Ratio] 20.29 kg/m2 Braden Hopkins MD MPH Work Phone: [facility] 03-07-2024 11:49-0400 Body weight 48.7 kg Braden Hopkins MD MPH Work Phone: [facility] 03-02-2024 10:36-0400 Body temperature 97.3 [degF] Braden Hopkins MD MPH Work Phone: [facility] 03-02-2024 10:36-0400 Diastolic blood pressure 72 mm[Hg] Braden Hopkins MD MPH Work Phone: [facility] 03-02-2024 10:36-0400 Heart rate 103 /min Braden Hopkins MD MPH Work Phone: [facility] 03-02-2024 10:36-0400 Systolic blood pressure 110 mm[Hg] Braden Hopkins MD MPH Work Phone: [facility] 02-14-2024 14:29-0400 Body temperature 97.5 [degF] Braden Hopkins MD MPH Work Phone: [facility] 02-14-2024 14:29-0400 Diastolic blood pressure 63 mm[Hg] Braden Hopkins MD MPH Work Phone: [facility] 02-14-2024 14:29-0400 Heart rate 106 /min Braden Hopkins MD MPH Work Phone: [facility] 02-14-2024 14:29-0400 Respiratory rate 18 /min Braden Hopkins MD MPH Work Phone: [facility] 02-14-2024 14:29-0400 SaO2% (BldA) [Mass fraction] 100 % Braden Hopkins MD MPH Work Phone: [facility] 02-14-2024 14:29-0400 Systolic blood pressure 140 mm[Hg] Braden Hopkins MD MPH Work Phone: [facility] 12-26-2023 15:45-0400 Body temperature 97.2 [degF] Braden Hopkins MD MPH Work Phone: [facility] 12-26-2023 15:45-0400 Diastolic blood pressure 60 mm[Hg] Braden Hopkins MD MPH Work Phone: [facility] 12-26-2023 15:45-0400 Heart rate 89 /min Braden Hopkins MD MPH Work Phone: [facility] 12-26-2023 15:45-0400 Respiratory rate 18 /min Braden Hopkins MD MPH Work Phone: [facility] 12-26-2023 15:45-0400 SaO2% (BldA) [Mass fraction] 96 % Braden Hopkins MD MPH Work Phone: [facility] 12-26-2023 15:45-0400 Systolic blood pressure 132 mm[Hg] Braden Hopkins MD MPH Work Phone: [facility] 12-26-2023 11:51-0400 Body mass index (BMI) [Ratio] 19.66 kg/m2 Braden Hopkins MD MPH Work Phone: [facility] 12-26-2023 11:51-0400 Body weight 47.2 kg Braden Hopkins MD MPH Work Phone: [facility] 12-02-2023 09:09-0400 Body mass index (BMI) [Ratio] 19.08 kg/m2 Braden Hopkins MD MPH Work Phone: [facility] 12-02-2023 09:09-0400 Body temperature 96.3 [degF] Braden Hopkins MD MPH Work Phone: [facility] 12-02-2023 09:09-0400 Body weight 45.81 kg Braden Hopkins MD MPH Work Phone: [facility] 12-02-2023 09:09-0400 Diastolic blood pressure 82 mm[Hg] Braden Hopkins MD MPH Work Phone: [facility] 12-02-2023 09:09-0400 Heart rate 87 /min Braden Hopkins MD MPH Work Phone: [facility] 12-02-2023 09:09-0400 Systolic blood pressure 131 mm[Hg] Braden Hopkins MD MPH Work Phone: [facility] 11-07-2023 14:55-0400 Body temperature 97.7 [degF] Braden Hopkins MD MPH Work Phone: [facility] 11-07-2023 14:55-0400 Diastolic blood pressure 59 mm[Hg] Braden Hopkins MD MPH Work Phone: [facility] 11-07-2023 14:55-0400 Heart rate 88 /min Braden Hopkins MD MPH Work Phone: [facility] 11-07-2023 14:55-0400 Respiratory rate 15 /min Braden Hopkins MD MPH Work Phone: [facility] 11-07-2023 14:55-0400 SaO2% (BldA) [Mass fraction] 97 % Braden Hopkins MD MPH Work Phone: [facility] 11-07-2023 14:55-0400 Systolic blood pressure 128 mm[Hg] Braden Hopkins MD MPH Work Phone: [facility] 11-07-2023 10:49-0400 Body height 154.9 cm Braden Hopkins MD MPH Work Phone: [facility] 11-07-2023 10:49-0400 Body mass index (BMI) [Ratio] 18.66 kg/m2 Braden Hokpins MD MPH Work Phone: [facility] 11-07-2023 10:49-0400 Body weight 44.8 kg Braden Hopkins MD MPH Work Phone: [facility] 10-14-2023 08:54-0400 Body height 157.5 cm Braden Hopkins MD MPH Work Phone: [facility] 10-14-2023 08:54-0400 Body mass index (BMI) [Ratio] 17.85 kg/m2 Braden Hopkins MD MPH Work Phone: [facility] 10-14-2023 08:54-0400 Body weight 44.27 kg Braden Hopkins MD MPH Work Phone: [facility] 10-14-2023 08:54-0400 Diastolic blood pressure 84 mm[Hg] Braden Hopkins MD MPH Work Phone: [facility] 10-14-2023 08:54-0400 Heart rate 112 /min Braden Hopkins MD MPH Work Phone: [facility] 10-14-2023 08:54-0400 Systolic blood pressure 142 mm[Hg] Braden Hopkins MD MPH Work Phone: [facility] 08-21-2023 06:59-0500 Body temperature 98.1 [degF] [employer] Adelina Guallpa [employer] Work Phone: [facility] 08-21-2023 06:59-0500 Diastolic blood pressure 58 mm[Hg] [employer] Adelina Guallpa [employer] Work Phone: [facility] 08-21-2023 06:59-0500 Heart rate 83 /min [employer] Adelina Guallpa [employer] Work Phone: [facility] 08-21-2023 06:59-0500 Respiratory rate 16 /min [employer] Adelina Guallpa [employer] Work Phone: [facility] 08-21-2023 06:59-0500 SaO2% (BldA) [Mass fraction] 98 % [employer] Adelina Wagnerpkins [employer] Work Phone: [facility] 08-21-2023 06:59-0500 Systolic blood pressure 133 mm[Hg] [employer] Adelina Wagnerpkins [employer] Work Phone: [facility] 08-21-2023 05:06-0500 Body height 154.94 cm [employer] Adelina Guallpa [employer] Work Phone: [facility] 08-21-2023 05:06-0500 Body mass index (BMI) [Ratio] 18 kg/m2 [employer] Adelina Guallpa [employer] Work Phone: [facility] 08-21-2023 05:06-0500 Body weight 43.27 kg [employer] Adelina Montague [employer] Work Phone: [facility] 08-10-2023 12:29-0500 Body temperature 98.1 [degF] [employer] Adelina Guallpa [employer] Work Phone: [facility] 08-10-2023 12:29-0500 Diastolic blood pressure 49 mm[Hg] [employer] Adelina Guallpa [employer] Work Phone: [facility] 08-10-2023 12:29-0500 Heart rate 89 /min [employer] Adelina Montague [employer] Work Phone: [facility] 08-10-2023 12:29-0500 Respiratory rate 14 /min [employer] Adelina Guallpa [employer] Work Phone: [facility] 08-10-2023 12:29-0500 SaO2% (BldA) [Mass fraction] 99 % [employer] Adelina Guallpa [employer] Work Phone: [facility] 08-10-2023 12:29-0500 Systolic blood pressure 121 mm[Hg] [employer] Adelina Guallpa [employer] Work Phone: [facility] 08-09-2023 13:17-0500 Body height 157.48 cm [employer] Adelina Guallpa [employer] Work Phone: [facility] 08-09-2023 13:17-0500 Body weight 46.4 kg [employer] Adelina Wagnerpkins [employer] Work Phone: [facility] 08-07-2023 07:52-0500 Inhaled oxygen flow rate 2 L/min [employer] Adelina Wagnerpkins [employer] Work Phone: [facility] 08-05-2023 22:20-0500 Body mass index (BMI) [Ratio] 18.7 kg/m2 [employer] Adelina Wagnerpkins [employer] Work Phone: [facility] 08-05-2023 18:43-0500 Inhaled oxygen concentration 1.5 % [employer] Adelina Saloni [employer] Work Phone: [facility] Encounters Encounter Date Encounter Type Care Provider Facility Start: 02-12-2025 End: 02-16-2025 ambulatory ADELINA GUALLPA [employer] - 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 Facility:[facility] Start: 02-12-2025 End: 02-16-2025 Outreach Lab ADELINA GUALLPA [employer] - 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 [facility] Start: 08-29-2024 Encounter for other preprocedural examination Roshan Hinson Alfred [facility] Start: 07-26-2024 End: 07-30-2024 ambulatory ADELINA GUALLPA [employer] - [employer]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 Facility:[facility] Start: 07-26-2024 End: 07-30-2024 Outreach Lab ADELINA GUALLPA [employer] - [employer]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 [facility] Start: 06-08-2024 End: 06-08-2024 Emergency department patient visit TYSON KNAPP MD [facility] Start: 03-07-2024 End: 03-07-2024 Subsequent hospital visit by physician Braden Hopkins MD MPH Work Phone: [facility] Comment on above: 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) Start: 01-13-2024 End: 01-13-2024 ambulatory [facility] Start: 01-13-2024 End: 01-13-2024 Phys/qhp telephone evaluation 21-30 min Braden Hopkins MD MPH Work Phone: [facility] 1 Comment on above: 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); Asymptomatic microscopic hematuria Start: 12-26-2023 End: 12-26-2023 Subsequent hospital visit by physician Braden Hopkins MD MPH Work Phone: [facility] Comment on above: 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) Start: 12-21-2023 [facility] Start: 12-19-2023 End: 12-19-2023 ambulatory ADELINA CROFT [facility] Start: 12-02-2023 End: 12-02-2023 ambulatory [facility] Start: 12-02-2023 End: 12-02-2023 Office outpatient visit 25 minutes Braden Hopkins MD MPH Work Phone: [facility] 1 Comment on above: 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 Start: 11-07-2023 End: 11-07-2023 Subsequent hospital visit by physician Braden Hopkins MD MPH Work Phone: [facility] Comment on above: Mass of ureter (Prim kasey Dx); Ureteral mass Start: 11-03-2023 End: 11-08-2023 ambulatory BRADEN Cornelius [facility] Start: 11-03-2023 End: 11-03-2023 ambulatory BRADEN Cornelius [facility] Start: 11-03-2023 End: 11-03-2023 Encounter for other preprocedural examination BRADEN Shields [facility] Start: 11-03-2023 End: 11-03-2023 Subsequent hospital visit by physician Tao [id number] [employer] Nonv1 Holter/Ecg Resource [facility] Comment on above: Ureteral mass Start: 10-31-2023 End: 10-31-2023 ambulatory ADELINA GUALLPA [facility] Start: 10-14-2023 End: 10-14-2023 Office outpatient new 60 minutes Braden Hopkins MD MPH Work Phone: [facility] [employer] [facility] 1 Comment on above: Ureteral mass (Prima ry Dx); Mass of ureter Start: 10-14-2023 End: 10-14-2023 ambulatory [facility] Start: 09-30-2023 End: 10-05-2023 ambulatory ADELINA GUALLPA [employer]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 Facility:[facility] Start: 09-22-2023 End: 09-27-2023 ambulatory ADELINA GUALLPA [employer]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 Facility:[facility] Start: 09-22-2023 End: 09-26-2023 Outreach Lab ADELINA Reyes SALONI 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 [facility] Start: 09-13-2023 End: 09-15-2023 ambulatory Adelina Guallpa [employer] Facility:[facility] Start: 08-24-2023 End: 08-25-2023 ambulatory ADELINA GUALLPA [employer]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 Facility:[facility] Start: 08-24-2023 End: 08-24-2023 Patient encounter procedure ADELINA GUALLPA [employer] - [employer]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 [facility] Start: 08-22-2023 End: 08-22-2023 ambulatory [employer] Adelina Guallpa [employer] Work Phone: [facility] Work Phone: Start: 08-22-2023 End: 08-22-2023 Patient encounter procedure [employer]-Cornelius Guallpa [employer] Work Phone: [facility]-Laboratory, Specimen Work Phone: Start: 08-21-2023 End: 08-21-2023 Emergency department patient visit [employer]-Cornelius Guallpa [employer] Work Phone: [facility]-Emergency Department Work Phone: Start: 08-10-2023 Non-patient / Non-visit [employer] Bree Guallpa [employer] Work Phone: [facility] Physicians Work Phone: Start: 08-09-2023 Non-patient / Non-visit INSPECTOR [employer]-C R thomas Montague INSPECTOR BALANCE BRIDGE Work Phone: [facility] Work Phone: Start: 08-08-2023 Non-patient / Non-visit INSPECTOR [employer]-C R davidard Montague INSPECTOR BALANCE BRIDGE Work Phone: [facility] Work Phone: Start: 08-08-2023 Non-patient / Non-visit INSPECTOR [employer]ANCE BR[employer]GE-C R ichard Montague INSPECTOR BALANCE BRIDGE Work Phone: [facility] Start: 08-07-2023 Non-patient / Non-visit INSPECTOR [employer]ANCE [employer]-C R thomas Montague INSPECTOR [employer]ANCE BR[employer]GE Work Phone: [facility] Work Phone: Start: 08-06-2023 Non-patient / Non-visit INSPECTOR [employer]-C R ichard Saloni INSPECTOR [employer]ANCE BR[employer]GE Work Phone: [facility] Work Phone: Start: 08-05-2023 Non-patient / Non-visit INSPECTOR [employer]-C R thomas Montague INSPECTOR [employer]ANCE BR[employer]GE Work Phone: [facility] Work Phone: Start: 08-05-2023 End: 08-10-2023 Evaluation and management of inpatient INSPECTOR [employer]-C Adelina Guallpa INSPECTOR [employer]ANCE BR[employer]GE [facility] Work Phone: Start: 05-05-2023 End: 05-10-2023 ambulatory ADELINA GUALLPA ALMOND HULLER - SAFEK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 Facility:B Start: 05-05-2023 End: 05-09-2023 Outreach Lab ADELINA GUALLPA ALMOND HULLER - SAFEK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 [facility] Start: 11-04-2022 End: 11-08-2022 Outreach Lab ADELINA GUALLPA ALMOND HULLER - SAFEK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 [facility] Start: 05-06-2022 End: 05-10-2022 Outreach Lab ADELINA GUALLPA ALMOND HULLER - SAFEK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 [facility] Start: 11-05-2021 End: 11-09-2021 Outreach Lab ADELINA GUALLPA ALMOND HULLER - SAFEK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 [facility] Start: 04-24-2021 End: 04-28-2021 Outreach Lab ADELINA GUALLPA ALMOND HULLER - SAFEK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 [facility] Procedures Date Procedure Procedure Detail Performing Clinician Start: 03-07-2024 Glucose quantitative blood xcpt reagent strip Braden Hopkins MD MPH Work Phone: Start: 03-07-2024 PULSE OXIMETRY, CONTINUOUS Deborah Loza MD Work Phone: Start: 03-07-2024 Blood typing serolog ic rh (d) Braden Hopkins MD MPH Work Phone: Start: 03-07-2024 Glucose quantitative blood xcpt reagent strip Braden Hopkins MD MPH Work Phone: Start: 03-07-2024 PULSE OXIMETRY, SPOT Ad am Cornelius Hopkins MD MPH Work Phone: Start: 12-26-2023 Glucose quantitative blood xcpt reagent strip Braden Hopknis MD MPH Work Phone: Start: 12-26-2023 XR tomography Unspec ified body region Braden Hopkins MD MPH Work Phone: Start: 12-26-2023 Glucose quantitative blood xcpt reagent strip Braden Hopkins MD MPH Work Phone: Start: 12-26-2023 PULSE OXIMETRY, SPOT Ad chidi Hopkins MD MPH Work Phone: Start: 11-08-2023 ECG 12-LEAD BRADEN PHAN Start: 11-07-2023 Glucose [Mass/volume ] in Serum or Plasma BRADEN HOPKINS Start: 11-07-2023 DISCHARGE PATIENT BRADEN HOPKINS Start: 11-07-2023 FL FLUORO IMAGES NO CHARGE BRADEN HOPKINS Start: 11-07-2023 DISCONTINUE IV BRADEN MOE Start: 11-07-2023 INSERT PERIPHERAL IV AD AM KELLIE Start: 11-07-2023 NURSING COMMUNICATION A ELVA HOPKINS Start: 11-07-2023 PULSE OXIMETRY, CONTINUOUS BRADEN HOPKINS Start: 11-07-2023 VITAL SIGNS BRADEN PHAN Start: 11-07-2023 SURGICAL PATHOLOGY EXAM BRADEN HOPKINS Start: 11-07-2023 Glucose quantitative blood xcpt reagent strip Braden Hopkins MD MPH Work Phone: Start: 11-07-2023 CYTOLOGY CONSULTATIO N (NON-GYNECOLOGIC) BRADEN HOPKINS Start: 11-07-2023 XR tomography Unspec ified body region Hesham Durbin MD Work Phone: Start: 11-07-2023 PULSE OXIMETRY, CONTINUOUS Shreya Collins MD Work Phone: Start: 11-07-2023 TYPE AND SCREEN BRADEN MCGILL Start: 11-07-2023 POCT GLUCOSE METER BRADEN HOPKINS Start: 11-07-2023 SALINE LOCK IV BRADEN MOE Start: 11-07-2023 VERAB/VERIFY ABORH BRADEN HOPKINS Start: 11-07-2023 Glucose [Mass/volume ] in Serum or Plasma BRADEN HOPKINS Start: 11-07-2023 INSERT PERIPHERAL IV AD AM KELLIE Start: 11-07-2023 PULSE OXIMETRY, SPOT AD AM KELLIE Start: 11-07-2023 FULL CODE BRADEN PHAN Start: 11-07-2023 Blood typing serolog ic rh (d) Shreya Collins MD Work Phone: Start: 11-07-2023 Glucose quantitative blood xcpt reagent strip Braden Hopkins MD MPH Work Phone: Start: 11-07-2023 PULSE OXIMETRY, SPOT Ad am Cornelius Hopkins MD MPH Work Phone: Start: 11-03-2023 Bacteria identified in Urine by Culture BRADEN HOPKINS Start: 11-03-2023 Basic metabolic 2000 panel - Serum or Plasma BRADEN HOPKINS Start: 11-03-2023 CBC panel - Blood by Automated count BRADEN HOPKINS Start: 11-03-2023 COAGULATION SCREEN BRADEN HOPKINS Start: 11-03-2023 EXTRA URINE RICH TUBE A ELVA HOPKINS Start: 11-03-2023 Hemoglobin A1c/Hemoglobin.total in Blood BRADEN HOPKINS Start: 11-03-2023 MICROSCOPIC ONLY, URINE BRADEN HOPKINS Start: 11-03-2023 URINALYSIS WITH REFL EX CULTURE AND MICROSCOPIC BRADEN HOPKINS Start: 11-03-2023 REQUEST FOR PRE-ADMI SSION TESTING VISIT BRADEN HOPKINS Start: 08-09-2023 Computed tomography of abdomen and pelvis with intravenous contrast INS[employer]OR [employer]-C Adelina Guallpa INSPECTOR [employer]GE Work Phone: Start: 08-09-2023 Fluoroscopic guidance N P-C Adelina Guallpa INSPECTOR [employer]GE Work Phone: Start: 08-09-2023 Insertion of stent i nto ureter INSPECTOR [employer]-C Adelina Guallpa INSPECTOR [employer]GE Work Phone: Start: 08-08-2023 CT of abdomen and pe lvis without contrast INSPECTOR [employer]-C Adelina Guallpa INSPECTOR [employer]GE Work Phone: Start: 08-08-2023 US urinary tract INSPECTOR [employer]-C Bree Guallpa INSPECTOR [employer]ANCE BR[employer]GE Work Phone: Start: 08-05-2023 Plain chest X-ray INSPECTOR [employer] BR[employer]-C Adelina Guallpa INSPECTOR [employer]GE Work Phone: Start: 08-05-2023 Bacteria identified in Blood by Culture INSPECTOR [employer]-C Adelina Guallpa INSPECTOR [employer]GE Work Phone: Start: 08-05-2023 SARS-CoV-2, Influenz a & RSV (PCR) INSPECTOR [employer]-C Adelina Guallpa INSPECTOR [employer]GE Work Phone: Start: 08-05-2023 Urine culture INSPECTOR [employer]ANCE BR[employer]-C Son Guallpa INSPECTOR [employer]ANCE BR[employer]GE Work Phone: Start: 06-27-1997 Surgery (qualifier value) ADELINA GUALLPA [employer]MOND HULLER - SAFEK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 Comment on above: Bowel Start: 06-27-1996 Removal of ovarian cyst ADELINA GUALLPA [employer]MOND HULLER - SAFEK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 Start: 06-27-1987 Hysterectomy ADELINA BUCHANAN ALMOND HULLER - SAFEK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 Refusal of treatment by patient Declined smoking cessation( Confirmed ) ADELINA GUALLPA ALMOND HULLER - SAFEK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 Plan of Treatment Date Care Activity Detail Author Start: 03-13-2024 End: 03-13-2024 Patient encounter procedure 03/13/2024 10:50 AM EDT Procedure Visit [facility] [address] [place] [address] Braden Hopkins MD MPH [address] [place] [address] [facility] Start: 03-07-2024 End: 03-07-2024 Laparoscopy nephrectomy w/total ureterectomy Nephroureterectomy Laparoscopy Urothelial carcinoma of kidney, right (Multi) 03/07/2024 12:46 PM EDT Virtual [facility] [place] Start: 03-07-2024 End: 03-07-2024 Admission to same day surgery center [facility] [place] Comment on above: Robotic Assisted Nephroureterectomy [505 48 (CPT )] Nephroureterectomy L aparoscopy [57573 (CPT )] Start: 03-07-2024 End: 03-07-2024 Laparoscopy nephrectomy w/total ureterectomy Virtual [facility] Start: 03-07-2024 Subsequent hospital visit by physician [facility] [place] Start: 02-26-2024 COVID-19 Vaccine ( season) COVID-19 Vaccine ( season) [facility] Start: 02-26-2024 Influenza vaccination [facility] Start: 02-14-2024 End: 02-14-2024 Patient encounter procedure 02/14/2024 2:10 PM EDT Procedure Visit [facility] [address] [place] [address] Braden Hopkins MD MPH [address] [place] [address] [facility] Start: 02-03-2024 Hemoglobin A1c measurement Diabetes: Hemoglobin A1C [facility] Start: 01-15-2024 End: 01-22-2024 Bacteria identified in Urine by Culture Urine Culture Microbiology Routine Carcinoma of right ureter (Multi) Asymptomatic microscopic hematuria Expected: 01/15/2024 (Approximate), Expires: 01/22/2024 [facility] Work Phone: Comment on above: Expected: 01/15/2024 (Approximate), Expi res: 01/22/2024 Start: 01-15-2024 End: 01-14-2025 Basic metabolic 2000 panel - Serum or Plasma Basic Metabolic Panel Lab Routine Carcinoma of right ureter (Multi) Expected: 01/15/2024 (Approximate), Expires: 01/14/2025 [facility] Service Area Work Phone: Comment on above: Expected: 01/15/2024 (Approximate), Expi res: 01/14/2025 Start: 01-15-2024 End: 01-14-2025 Blood type and Indirect antibody screen panel - Blood Type And Screen Lab Routine Carcinoma of right ureter (Multi) Expected: 01/15/2024 (Approximate), Expires: 01/14/2025 [facility] Work Phone: Comment on above: Expected: 01/15/2024 (Approximate), Expi res: 01/14/2025 Start: 01-15-2024 End: 01-14-2025 CBC panel - Blood by Automated count CBC Lab Routine Carcinoma of right ureter (Multi) Expected: 01/15/2024 (Approximate), Expires: 01/14/2025 [facility] Work Phone: Comment on above: Expected: 01/15/2024 (Approximate), Expi res: 01/14/2025 Start: 01-15-2024 End: 01-14-2025 ECG 12 lead ECG 12 lead ECG Routine Carcinoma of right ureter (Multi) Expected: 01/15/2024 (Approximate), Expires: 01/14/2025 [facility] Work Phone: Comment on above: Expected: 01/15/2024 (Approximate), Expi res: 01/14/2025 Start: 01-15-2024 End: 01-14-2025 PT and aPTT panel - Platelet poor plasma by Coagulation assay Coagulation Screen Lab Routine Carcinoma of right ureter (Multi) Asymptomatic microscopic hematuria Expected: 01/15/2024 (Approximate), Expires: 01/14/2025 [facility] Work Phone: Comment on above: Expected: 01/15/2024 (Approximate), Expi res: 01/14/2025 Start: 01-15-2024 End: 01-14-2025 Request for Pre-Admission Testing Visit Request for Pre-Admission Testing Visit Procedures Routine Carcinoma of right ureter (Multi) Expected: 01/15/2024 (Approximate), Expires: 01/14/2025 [facility] Work Phone: Comment on above: Expected: 01/15/2024 (Approximate), Expi res: 01/14/2025 Start: 01-15-2024 End: 01-14-2025 Urinalysis complete W Reflex Culture panel - Urine Urinalysis with Reflex Culture and Microscopic Lab Routine Carcinoma of right ureter (Multi) Expected: 01/15/2024 (Approximate), Expires: 01/14/2025 [facility] Work Phone: Comment on above: Expected: 01/15/2024 (Approximate), Expi res: 01/14/2025 Start: 01-13-2024 End: 01-13-2024 Patient encounter procedure 01/13/2024 9:10 AM EDT Office Visit [facility] [employer] [facility] Building [address] [place] [address] [employer] [facility] [address] [place] [address] Braden Hopkins MD MPH [address] Department of Urology [place] [id number] [facility] 1 Start: 12-26-2023 End: 12-26-2023 Cysto w/urtroscopy&/pyeloscopy dx Nephroscopy Carcinoma of right ureter (Multi) 12/26/2023 12:29 PM EDT Virtual [facility] Start: 12-02-2023 End: 12-09-2023 Bacteria identified in Urine by Culture Urine Culture Microbiology Routine Carcinoma of right ureter (Multi) Asymptomatic microscopic hematuria Expected: 12/02/2023 (Approximate), Expires: 12/09/2023 [facility] Work Phone: Comment on above: Expected: 12/02/2023 (Approximate), Expi res: 12/09/2023 Start: 12-02-2023 End: 12-01-2024 Urinalysis complete W Reflex Culture panel - Urine Urinalysis with Reflex Culture and Microscopic Lab Routine Carcinoma of right ureter (Multi) Expected: 12/02/2023 (Approximate), Expires: 12/01/2024 [facility] Service Area Work Phone: Comment on above: Expected: 12/02/2023 (Approximate), Expi res: 12/01/2024 Start: 12-02-2023 End: 12-02-2023 Patient encounter procedure 12/02/2023 9:00 AM EDT Office Visit [facility] [address] [facility] [address] [facility] [address] [place] [id number] Braden Hopkins MD MPH [address] [place] [address] [facility] 1 Start: 10-14-2023 End: 10-21-2023 Bacteria identified in Urine by Culture Urine Culture Microbiology Routine Ureteral mass Expected: 10/14/2023 (Approximate), Expires: 10/21/2023 [facility] Work Phone: Comment on above: Expected: 10/14/2023 (Approximate), Expi res: 10/21/2023 Start: 10-14-2023 End: 10-13-2024 Basic metabolic 2000 panel - Serum or Plasma Basic Metabolic Panel Lab Routine Ureteral mass Expected: 10/14/2023 (Approximate), Expires: 10/13/2024 [facility] Service Area Work Phone: Comment on above: Expected: 10/14/2023 (Approximate), Expi res: 10/13/2024 Start: 10-14-2023 End: 10-13-2024 CBC panel - Blood by Automated count CBC Lab Routine Ureteral mass Expected: 10/14/2023 (Approximate), Expires: 10/13/2024 [facility] Work Phone: Comment on above: Expected: 10/14/2023 (Approximate), Expi res: 10/13/2024 Start: 10-14-2023 End: 10-13-2024 ECG 12 lead ECG 12 lead ECG Routine Ureteral mass Expected: 10/14/2023 (Approximate), Expires: 10/13/2024 [facility] Work Phone: Comment on above: Expected: 10/14/2023 (Approximate), Expi res: 10/13/2024 Start: 10-14-2023 End: 10-13-2024 PT and aPTT panel - Platelet poor plasma by Coagulation assay Coagulation Screen Lab Routine Ureteral mass Expected: 10/14/2023 (Approximate), Expires: 10/13/2024 [facility] Work Phone: Comment on above: Expected: 10/14/2023 (Approximate), Expi res: 10/13/2024 Start: 10-14-2023 End: 10-13-2024 Urinalysis complete W Reflex Culture panel - Urine Urinalysis with Reflex Culture and Microscopic Lab Routine Ureteral mass Expected: 10/14/2023 (Approximate), Expires: 10/13/2024 [facility] Work Phone: Comment on above: Expected: 10/14/2023 (Approximate), Expi res: 10/13/2024 Start: 08-21-2023 [facility] Start: 08-10-2023 Patient discharge [facility] Start: 08-08-2023 Consultation [facility] Start: 08-08-2023 Incentive spirometry [facility] Start: 08-08-2023 [facility] Start: 08-07-2023 Following clinical pathway protocol [facility] Start: 08-05-2023 Following clinical pathway protocol [facility] Start: 08-05-2023 Oxygen therapy [facility] Start: 08-05-2023 Ambulation without limitation [facility] Start: 08-05-2023 Assessment of risk of venous thromboembolism [facility] Start: 08-05-2023 Care regimes management [facility] Start: 08-05-2023 Insertion of catheter into peripheral vein [facility] Start: 08-05-2023 Measuring intake and output [facility] Start: 08-05-2023 Notification of physician [facility] Start: 08-05-2023 Providing care according to standard [facility] Start: 08-05-2023 Provision of activity privileges [facility] Start: 08-05-2023 Referral to occupational therapist [facility] Start: 08-05-2023 Referral to service [facility] Start: 08-05-2023 [facility] Start: 08-05-2023 Admission procedure [facility] Start: 08-05-2023 Hospital admission, emergency, from emergency room, medical nature [facility] Start: 08-05-2023 Blood culture [facility] Start: 08-05-2023 [facility] Start: 08-05-2023 Bacteria identified in Blood by Culture Blood Culture [facility] Start: 08-05-2023 Patient referral to dietitian [facility] Start: 02-25-2023 COVID-19 Vaccine ( season) COVID-19 Vaccine ( season) [facility] Start: 2007 Hepatitis B Vaccines (1 of 3 - Risk 3-dose series) Hepatitis B Vaccines (1 of 3 - Risk 3-dose series) [facility] Start: 2007 RSV patients and/or patients aged 60+ years (1 - 1-dose 60+ series) RSV patients and/or patients aged 60+ years (1 - 1-dose 60+ series) [facility] Start: 1997 Zoster Vaccines (1 of 2) Zoster Vaccines (1 of 2) [facility] Start: 1969 DTaP/Tdap/Td Vaccines (1 - Tdap) DTaP/Tdap/Td Vaccines (1 - Tdap) [facility] Start: 1966 Hepatitis A Vaccines (1 of 2 - Risk 2-dose series) Hepatitis A Vaccines (1 of 2 - Risk 2-dose series) [facility] Start: 1966 Urine screening for protein Diabetes: Urine Protein Screening [facility] Start: 1965 Hepatitis C screening Hepatitis C Screening [facility] Start: 1957 Diabetic foot examination Diabetes: Foot Exam [facility] Start: 1957 Glaucoma screening Diabetes: Retinopathy Screening [facility] Start: 1947 Lipid panel Lipid Panel [facility] Start: 1947 Medicare Annual Wellness Visit Medicare Annual Wellness Visit (AWV) [facility] Start: 1947 Screening for osteoporosis Bone Density Scan [facility] Bilirubin measuremen t, urine [facility] End: 12-26-2023 Continuous Pulse oximetry, In Phase 1 Continuous Pulse oximetry, In Phase 1 Respiratory Care Routine Continuous until discontinued starting 12/26/2023 [facility] Service Area Work Phone: Comment on above: Continuous until discontinued starting 0 12/26/2023 End: 11-22-2023 CT Kidney and Ureter and Urinary bladder 3D post processing WO and W contrast IV [facility] Service Area Work Phone: Comment on above: Once for 1 Occurrences starting 11/22/19 24 until 11/22/2023 Cysto w/urtroscopy&/pyeloscopy dx Ureteroscopy Mass of ureter Virtual [facility] Cysto w/urtroscopy&/pyeloscopy dx Nephroscopy Carcinoma of right ureter (Multi) Virtual [facility] End: 11-08-2023 ECG 12 lead [facility] Service Area Work Phone: Comment on above: Once for 1 Occurrences starting 11/08/19 24 until 11/08/2023 End: 11-07-2023 Glucose [Mass/volume] in Serum or Plasma POCT Glucose Point of Care Testing - Docked Device Routine Once (Lab) for 1 Occurrences starting 11/07/2023 until 11/07/2023 [facility] Service Area Work Phone: Comment on above: Once (Lab) for 1 Occurrences starting until 11/07/2023 End: 03-07-2024 Glucose [Mass/volume] in Serum or Plasma POCT Glucose Point of Care Testing - Docked Device Routine Once (Lab) for 1 Occurrences starting 03/07/2024 until 03/07/2024 [facility] Area Work Phone: Comment on above: Once (Lab) for 1 Occurrences starting until 03/07/2024 Hemoglobin [Presence ] in Urine [facility] Laparoscopy nephrect jennie w/total ureterectomy Nephroureterectomy Laparoscopy Carcinoma of right ureter (Multi) Virtual [facility] Measurement of keton es in urine using dipstick [facility] Microscopic urinalysis [facility] Non-gynecological cy tology method study Cytology Consultation (Non-Gynecologic) Pathology and Cytology Timed Mass of ureter Release Upon Ordering for 1 Occurrences starting 11/07/2023 [facility] Area Work Phone: Comment on above: Release Upon Ordering for 1 Occurrences starting 11/07/2023 Organism count, microscopic method [facility] Patient Education ED Diabetic Hyperglycem ia [facility] Work Phone: Patient referral [facility] Work Phone: pH of Urine [facility] Specific gravity of Urine [facility] Surgical pathology study Surgica l Pathology Exam Pathology and Cytology Timed Mass of ureter Release Upon Ordering for 1 Occurrences starting 11/07/2023 [facility] Work Phone: Comment on above: Release Upon Ordering for 1 Occurrences starting 11/07/2023 Surgical pathology study [facility] S [facility] Area Work Phone: Comment on above: Release Upon Ordering for 1 Occurrences starting 12/26/2023, 1 completed Urine dipstick for glucose [facility] Urine dipstick for leukocyte esterase [facility] Urine dipstick for nitrite W [facility] Urine dipstick for protein [facility] Urine examination [facility] Urine microscopy: epithelial cells [facility] Urine microscopy: re d cells [facility] Urobilinogen [Presen ce] in Urine [facility] End: 11-07-2023 Verify ABO/Rh Group Test (VERAB) Verify ABO/Rh Group Test (VERAB) Lab STAT STAT (Lab) for 1 Occurrences starting 11/07/2023 until 11/07/2023 [facility] Work Phone: Comment on above: STAT (Lab) for 1 Occurrences starting until 11/07/2023 White blood cell count [facility] Immunizations Immunization Date Immunization Notes Care Provider Fa grace 03-19-2022 influenza, high dose seasonal, preservative-free ADELINA GUALLPA ALMOND HULLER - SAFEK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 [facility] Physicians [place] Comment on above: Early/Late Reason: E heaven/Late Reason: Other: 03-19-2022 influenza virus vacc ine, unspecified formulation Braden Hopkins MD MPH Work Phone: [facility] Work Phone: 05-26-2021 COVID-19, mRNA, LNP- S, PF, 100 mcg or 50 mcg dose; Translations: [Moderna COVID-19 Vaccine] ADELINA GUALLPA ALMOND HULLER - SAFEK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 [facility] 04-02-2021 influenza, high dose seasonal, preservative-free; Translations: [Afluria PF Quadrivalent ] ADELINA GUALLPA ALMOND HULLER - SAFEK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 [facility] 10-10-2020 SARS-CoV-2 (COVID-19 ) mRNA-[id number] vaccine ADELINA GUALLPA ALMOND HULLER - SAFEK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 [facility] Comment on above: Result Comment: 2020: [id number] 09-12-2020 SARS-CoV-2 (COVID-19 ) mRNA-[id number] vaccine ADELINA GUALLPA ALMOND HULLER - SAFEK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 [facility] Comment on above: Result Comment: 2020: [id number] 03-28-2020 influenza, injectabl e, quadrivalent, preservative free; Translations: [Fluarix PF Quadrivalent ] ADELINA WAGNERPKINS ALMOND HULLER - SAFEK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 [facility] 03-22-2019 influenza, injectabl e, quadrivalent, preservative free; Translations: [Fluarix PF Quadrivalent ] ADELINA WAGNERPKINS ALMOND HULLER - SAFEK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 [facility] 03-21-2018 influenza virus vacc ine, unspecified formulation ADELINA SALONI ALMOND HULLER - SAFEK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 [facility] 03-17-2017 influenza virus vacc ine, unspecified formulation ADELINA SALONI AL[employer]D HULLER - SAFEK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 [facility] 03-15-2016 influenza virus vacc ine, unspecified formulation ADELINA GUALLPA ALMOND HULLER - SAFEK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 [facility] 03-15-2016 pneumococcal polysaccharide vaccine, 23 valent ADELINA GUALLPA ALMOND HULLER - SAFEK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 [facility] 03-13-2015 influenza virus vacc ine, unspecified formulation ADELINA GUALLPA ALMOND HULLER - SAFEK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 [facility] 03-13-2015 pneumococcal conjuga te vaccine, 13 valent ADELINA GUALLPA ALMOND HULLER - SAFEK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 [facility] 03-27-2014 influenza virus vacc ine, unspecified formulation ADELINA GUALLPA ALMOND HULLER - SAFEK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 [facility] 04-19-2013 influenza virus vacc ine, unspecified formulation ADELINA GUALLPA ALMOND HULLER - SAFEK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 [facility] 04-18-2012 influenza virus vacc ine, unspecified formulation ADELINA GUALLPA ALMOND HULLER - SAFEK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 [facility] Payers Date Payer Category Payer Self-pay [id number] 2022 Unknown [id number] 2019 Private Health Insurance [id number] 2019 Unknown [id number] 2018 Medicare [id number] 2018 Medicare [id number] 1945 Unknown [id number] 2840.1.960302.3.579.2 1945 Unknown [id number] 2.840.1.056878.3.579.2 1945 Unknown [id number] 2.840.1.617669.3.579.2 1945 Unknown [id number] 2840.1.322915.3.579.2 1947 Unknown [id number] 2.16.840.1.333092.3.579.2.627 1947 Unknown [id number] 2.16.840.1.829201.3.579.2. 1945 Unknown [id number] 2.16.840.1.595850.3.579.2. 1945 Unknown [id number] 2.16.840.1.942307.3.579.2. 1947 Unknown [id number] 2.16.840.1.390690.3.579.2. 1947 Unknown [id number] 2.16.840.1.396358.3.579.2.1242 1947 Unknown [id number] 2.16.840.1.887166.3.579.2.1243 1947 Unknown [id number] 2.840.1.362123.3.579.2.1243 1947 Unknown [id number] 2.840.1.240866.3.579.2.1243 1947 Unknown [id number] 2.840.1.380207.3.579.2.1243 1947 Unknown [id number] 2.16840.1.421770.3.579.2.1244 1947 Unknown [id number] 2.840.1.445968.3.579.2.1244 1947 Unknown [id number] 2.16.840.1.622847.3.579.2.1244 1947 Unknown [id number] 2.16.840.1.063219.3.579.2.1244 1947 Unknown [id number] 2.16.840.1.424996.3.579.2.1244 1947 Unknown [id number] 2.16.840.1.175613.3.579.2.124 1947 Unknown [id number] 2..840.1.403911.3.579.2.1244 1947 Unknown [id number] 2.16.840.1.754074.3.579.2.124 1947 Unknown [id number] 2.16.840.1.993096.3.579.2.1244 1947 Unknown [id number] 2.16.840.1.715826.3.579.2.124 Unknown [facility] *DO NOT USE* [id number] Unknown [id number] 2.16.840.1.086533.3.579.2.462 Social History Date Type Detail Facility Start: 02-09-2021 End: 11-29-2024 Heavy tobacco smoker (finding) [facility] Start: 1945 Sex Assigned At Female A [facility] Start: 08-06-2023 End: 08-21-2023 Tobacco smoking status PRIS Unknown if ever smoked [facility] Start: 09-17-2019 Cigarettes [facility] Start: 10-14-2023 End: 10-31-2023 Tobacco smoking status NHIS Smokes tobacco daily [facility] Work Phone: History of tobacco use Cigarette Smoker [facility] Work Phone: Start: 10-14-2023 End: 10-31-2023 Tobacco use and exposure Smokeless tobacco non-user [facility] Work Phone: Start: 10-14-2023 Alcoholic beverage intake Lifetime non-drinker (finding) [facility] Work Phone: Start: 1945 Sex assigned at Not on file [facility] Work Phone: Start: 11-03-2023 End: 11-07-2023 Gender identity Not on file [facility] Work Phone: Start: 10-04-2023 End: 03-07-2024 Exposure to SARS-CoV-2 (event) Not sure [facility] Start: 11-07-2023 End: 12-26-2023 Alcoholic beverage intake Ex-drinker (finding) [facility] Work Phone: Start: 11-03-2023 End: 11-07-2023 History of Social function [facility] Work Phone: Start: 10-31-2023 Alcohol [facility] Start: 01-03-2024 End: 01-13-2024 Exposure to SARS-CoV-2 (event) Unable to assess [facility] Sexual Orientation Raiza Luis Fernando hood [facility] Start: 12-20-2018 Sex Female (finding) [facility] Medical Equipment Procedure Code Equipment Code Equipment Origin al Text Equipment Identifier Dates Cystoscopy, with retrograde pyelogram and ureteral stent insertion ([id number]) Polymeric ureteral stent ()[id number] FDA Start: 08-09-2023 USE A NEEDLE ONC E A DAY Start: 08-23-2023 Stent, Inlay Dutton, 6fr X 24cm - [id number] - [id number] Start: 11-07-2023 Stent, Inlay Dutton, 6fr X 24cm - [id number] Start: 12-26-2023 Goals Date Patient Goal Desired Activity /State Functional Status Date Assessment Result Facility 06-08-2024 Functional Status Independent Raizakrzysztof escoto [facility] 08-10-2023 Functional status Ambulates [facility] Work Phone: Mental Status Date Assessment Result Facility 06-08-2024 Mental Status Oriented x 4 [facility] 08-21-2023 Cognitive function Level Of Cons ciousness Awake;Alert;Appropriate [facility] Work Phone: 08-10-2023 Cognitive function Voice/Name [facility] Work Phone: Clinical Notes 08-05-2023 to 06-08-2024 LaboratoryRadiologyDischarge InstructionsBraden Hopkins MD [facility] - 03/07/2024 1:05 PM Kiko Hopkins MD [facility] - 03/07/2024 1:05 PM [place] - 03/06/2024 9:39 AM EDTDischarge Instructions Note Date & Type Note Facility 06-08-2024 Hospital Discharge instructions Patient Education 06/08/2024 16:33:40 Cellulitis Skin Infection Cellulitis Cellulitis is an infection of the deep layers of skin. A break in the skin, such as a cut or scratch, can let bacteria under the skin. If the bacteria get to deep layers of the skin, it can be serious. If not treated, cellulitis can get into the bloodstream and lymph nodes. The infection can then spread throughout the body. This causes serious illness. Cellulitis causes the affected skin to become red, swollen, warm, and sore. The reddened areas have a visible border. An open sore may leak fluid (pus). You may have a fever, chills, and pain. Cellulitis is treated with antibiotics taken for 7 to 10 days. An open sore may be cleaned and covered with cool wet gauze. Symptoms should get better 1 to 2 days after treatment is started. Make sure to take all the antibiotics for the full number of days until they are gone. Keep taking the medicine even if your symptoms go away. Home care Follow these tips: Limit the use of the part of your body with cellulitis. If the infection is on your leg, keep your leg raised while sitting. This will help to reduce swelling. Take all of the antibiotic medicine exactly as directed until it is gone. Do not miss any doses, especially during the first 7 days. Don t stop taking the medicine when your symptoms get better. Keep the affected area clean and dry. Wash your hands with soap and warm water before and after touching your skin. Anyone else who touches your skin should also wash his or her hands. Don't share towels. Follow-up care Follow up with your healthcare provider, or as advised. If your infection does not go away on the first antibiotic, your healthcare provider will prescribe a different one. When to seek medical advice Call your healthcare provider right away if any of these occur: Red areas that spread Swelling or pain that gets worse Fluid leaking from the skin (pus) Fever higher of 100.4 F (38.0 C) or higher after 2 days on antibiotics [id number] [facility]. [address] [place] [address]. All rights reserved. This information is not intended as a substitute for professional medical care. Always follow your healthcare professional's instructions. Follow Up Care 06/08/2024 16:08:58 With:ADELINA GUALLPA APRN, CNP Address: [address] [place] [address]- When:2-4 days [facility] 06-08-2024 Note Discharge Instructions Thank you for allowing [facility] to assist you with your healthcare needs. The following is important discharge information regarding your hospital visit. Diagnosis from Today's Visit Cellulitis What to Do Next Instructions from Your Care Team No qualifying data available. Post Acute Orders No qualifying data available. You Need to Schedule the Following Appointments Follow Up with ADELINA GUALLPA APRN, CNP When:Within 2-4 days Where:[address] [place] [id number]- Allergies NKA Medications Please ask your primary doctor or pharmacist before taking any other medication not listed, including over the counter drugs, herbal medications, vitamins and or supplements as they may interact with your home medications. What How Much When Why Instructions Last Dose New doxycycline (doxycycline hyclate 100 mg oral capsule) 1 cap by mouth Two (2) times a day Duration: 7 Days Printed Prescription Unchanged albuterol (ProAir HFA MDI (90 mcg/ inh) inhalation aerosol) 1 puff(s) by inhalation Every 4 hours Chronic obstructive pulmonary disease (COPD) Duration: 30 Days Unchanged cephalexin (cephalexin 500 mg oral capsule) 1 cap by mouth Three (3) times a day Cellulitis of foot without toes Duration: 10 Days Unchanged cholecalciferol (cholecalciferol 1250 mcg (50,000 intl units) oral capsule) 1 cap by mouth Once a month Vitamin D deficiency Duration: 90 Days Unchanged DME (Pen needles 4 mm) See instructions Uncontrolled diabetes mellitus with hyperglycemia Diabetic keto-acidosis qs for 1 month supply at once a day dosing for basal insulin Unchanged insulin degludec (Tresiba FlexTouch 200 units/ mL 3 mL subcutaneous solution) 10 unit(s) Subcutaneous Once a day DM type 2, goal HbA1c < 7.5% Duration: 30 Days rotate injection sites. pls do not fill. Unchanged losartan (losartan 25 mg oral tablet) 1 tab(s) by mouth Once a day Hyperlipidemia LDL goal <100 Duration: 90 Days Unchanged metFORMIN (metFORMIN 500 mg oral tablet (IR)) 1 tab(s) by mouth Two (2) times a day Unchanged multivitamin with minerals (PreserVision AREDS) Unchanged simvastatin (simvastatin 40 mg oral tablet) 1 tab(s) by mouth Daily at bedtime Please take this list to your next doctor s visit. Bring all medications you take, including over the counter medications, herbals and other supplements with you to your doctor s visit. Patients and families are reminded to discard old lists and to update any records with all medication providers or retail pharmacies. Education Materials Cellulitis Cellulitis is an infection of the deep layers of skin. A break in the skin, such as a cut or scratch, can let bacteria under the skin. If the bacteria get to deep layers of the skin, it can be serious. If not treated, cellulitis can get into the bloodstream and lymph nodes. The infection can then spread throughout the body. This causes serious illness. Cellulitis causes the affected skin to become red, swollen, warm, and sore. The reddened areas have a visible border. An open sore may leak fluid (pus). You may have a fever, chills, and pain. Cellulitis is treated with antibiotics taken for 7 to 10 days. An open sore may be cleaned and covered with cool wet gauze. Symptoms should get better 1 to 2 days after treatment is started. Make sure to take all the antibiotics for the full number of days until they are gone. Keep taking the medicine even if your symptoms go away. Home care Follow these tips: Limit the use of the part of your body with cellulitis. If the infection is on your leg, keep your leg raised while sitting. This will help to reduce swelling. Take all of the antibiotic medicine exactly as directed until it is gone. Do not miss any doses, especially during the first 7 days. Don t stop taking the medicine when your symptoms get better. Keep the affected area clean and dry. Wash your hands with soap and warm water before and after touching your skin. Anyone else who touches your skin should also wash his or her hands. Don't share towels. Follow-up care Follow up with your healthcare provider, or as advised. If your infection does not go away on the first antibiotic, your healthcare provider will prescribe a different one. When to seek medical advice Call your healthcare provider right away if any of these occur: Red areas that spread Swelling or pain that gets worse Fluid leaking from the skin (pus) Fever higher of 100.4 F (38.0 C) or higher after 2 days on antibiotics [id number] [facility]. [address] [place] [address]. All rights reserved. This information is not intended as a substitute for professional medical care. Always follow your healthcare professional's instructions. Additional Information VACCINATE! IT SAVES LIVES! Members of the community who have not yet received the COVID-19 vaccine and would like to receive it can visit one of [facility] vaccine clinics. There are many vaccine clinic locations within the [facility]. For locations and available times, please visit [email or web address] [email or web address] It is important to note that some COVID mobile vaccine clinics are held outdoors and may be canceled in rainy or stormy conditions. To learn more about pediatric vaccinations (ages 5-11), we invite you to visit the [facility] webpage. [email or web address] [email or web address] tujg-[email or web address].html To learn more about the COVID-19 vaccine, we invite you to visit the CDC website for a list of frequently asked questions. https://www.cdc.gov/coronavirus/2 019-ncov/vaccines/faq.html [facility] Patient Portal Access Instructions: Stay connected with your healthcare team and access your personal medical information anytime with the [facility] Patient Portal. If you would like a full copy of your medical records please contact the [facility] Medical Records Department Tuesday through Tuesday between 8a.m. and 4:30p.m. Please follow the directions below to access the portal: 1.Access the email account you provided upon registration to the [facility].2.Look for an invitation email from [facility].3.Open the email and access the invitation link: Accept Invitation to [facility].Fill in the required batista to create your account. Sign into [email or web address] with your username and password that you created in the above steps to stay up to date. You can then view a summary of results, a summary of your visits, and the ability to download your summaries to your computer or send the information securely to a physician. Remember that your healthcare information is confidential, so carefully consider who you will allow to register on the [facility] Patient Portal for access to your information. You can also access the [facility] Patient Portal on the [employer]. Simply click on Health Records under Health Data and then click on the [facility] logo. HOW TO SAFELY DISPOSE OF PRESCRIPTION MEDICATIONS Please use one of the following methods to safely dispose of your unused medications. 1.Use a drug disposal kit: the drug disposal pouch allows you to safely discard your old and unused drugs. Ask your nurse to give you one when you are discharged.2.Visit a local take-back location: Many local pharmacies and police departments have programs that collect old and unwanted prescription drugs. Call your local pharmacy or go to http://[employer].EQ works/3S1Ba3k to find one close to you.3.Make use of household items: Use cat litter or old coffee grounds to dispose medications if other options are not available. Mix your drugs with these household products, seal them in an airtight container and throw it into the garbage. Call [facility]: [phone] to be sure your drugs can be disposed of in this way. Some medicines may require a different approach.4.Never flush your medications down the toilet. IF YOU HAVE BEEN PRESCRIBED AN OPIOIDS FOR PAIN If you have been prescribed an opioid (such as hydrocodone, oxycodone or morphine), it is critical to understand the possible side effects and risks of opioid pain medications. Even when taken as directed, opioids can have several side effects including: Tolerance, meaning you might need to take more of a medication for the same pain relief. Nausea, vomiting and/or constipation. Sleepiness, dizziness, dry mouth, confusion, depression or itching. Physical dependence, meaning you have withdrawal symptoms when a medication is stopped ? this can develop within a few days. KNOW YOUR RESPONSIBILITIES It is important to know exactly how much and how often to take the opioid pain medications you are prescribed. Never take opioids in higher amounts or more often than prescribed. Do not combine opioids with alcohol or other drugs that cause drowsiness, such as benzodiazepines, also known as benzos, including diazepam and alprazolam, muscle relaxants or sleep aids. Never sell or share prescription opioids. This is illegal. Store opioids in a secure place and out of reach of others (including children, family, friends and visitors). The last page(s) of this document has been signed and retained as a CHART COPY Signatures Patient Education Materials Cellulitis Skin Infection Medication Leaflets My discharge plan and instructions have been reviewed and explained to me and I,MAYTE SWEET understand my current condition and have read and understand these discharge instructions. I have received a written copy of the plan/instructions. If I have questions, I am aware that I should contact my doctor. 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 The following is important discharge information regarding your hospital visit. Diagnosis from Today's Visit Cellulitis What to Do Next Instructions from Your Care Team No qualifying data available. Post Acute Orders No qualifying data available. You Need to Schedule the Following Appointments Follow Up with ADELINA GUALLPA APRN - PATTI When:Within 2-4 days Where:[address] [facility] [place] [address]- Allergies NKA Medications Please ask your primary doctor or pharmacist before taking any other medication not listed, including over the counter drugs, herbal medications, vitamins and or supplements as they may interact with your home medications. What How Much When Why Instructions Last Dose New doxycycline (doxycycline hyclate 100 mg oral capsule) 1 cap by mouth Two (2) times a day Duration: 7 Days Printed Prescription Unchanged albuterol (ProAir HFA MDI (90 mcg/ inh) inhalation aerosol) 1 puff(s) by inhalation Every 4 hours Chronic obstructive pulmonary disease (COPD) Duration: 30 Days Unchanged cephalexin (cephalexin 500 mg oral capsule) 1 cap by mouth Three (3) times a day Cellulitis of foot without toes Duration: 10 Days Unchanged cholecalciferol (cholecalciferol 1250 mcg (50,000 intl units) oral capsule) 1 cap by mouth Once a month Vitamin D deficiency Duration: 90 Days Unchanged DME (Pen needles 4 mm) See instructions Uncontrolled diabetes mellitus with hyperglycemia Diabetic keto-acidosis qs for 1 month supply at once a day dosing for basal insulin Unchanged insulin degludec (Tresiba FlexTouch 200 units/ mL 3 mL subcutaneous solution) 10 unit(s) Subcutaneous Once a day DM type 2, goal HbA1c < 7.5% Duration: 30 Days rotate injection sites. pls do not fill. Unchanged losartan (losartan 25 mg oral tablet) 1 tab(s) by mouth Once a day Hyperlipidemia LDL goal <100 Duration: 90 Days Unchanged metFORMIN (metFORMIN 500 mg oral tablet (IR)) 1 tab(s) by mouth Two (2) times a day Unchanged multivitamin with minerals (PreserVision AREDS) Unchanged simvastatin (simvastatin 40 mg oral tablet) 1 tab(s) by mouth Daily at bedtime Please take this list to your next doctor s visit. Bring all medications you take, including over the counter medications, herbals and other supplements with you to your doctor s visit. Patients and families are reminded to discard old lists and to update any records with all medication providers or retail pharmacies. Education Materials Cellulitis Cellulitis is an infection of the deep layers of skin. A break in the skin, such as a cut or scratch, can let bacteria under the skin. If the bacteria get to deep layers of the skin, it can be serious. If not treated, cellulitis can get into the bloodstream and lymph nodes. The infection can then spread throughout the body. This causes serious illness. Cellulitis causes the affected skin to become red, swollen, warm, and sore. The reddened areas have a visible border. An open sore may leak fluid (pus). You may have a fever, chills, and pain. Cellulitis is treated with antibiotics taken for 7 to 10 days. An open sore may be cleaned and covered with cool wet gauze. Symptoms should get better 1 to 2 days after treatment is started. Make sure to take all the antibiotics for the full number of days until they are gone. Keep taking the medicine even if your symptoms go away. Home care Follow these tips: Limit the use of the part of your body with cellulitis. If the infection is on your leg, keep your leg raised while sitting. This will help to reduce swelling. Take all of the antibiotic medicine exactly as directed until it is gone. Do not miss any doses, especially during the first 7 days. Don t stop taking the medicine when your symptoms get better. Keep the affected area clean and dry. Wash your hands with soap and warm water before and after touching your skin. Anyone else who touches your skin should also wash his or her hands. Don't share towels. Follow-up care Follow up with your healthcare provider, or as advised. If your infection does not go away on the first antibiotic, your healthcare provider will prescribe a different one. When to seek medical advice Call your healthcare provider right away if any of these occur: Red areas that spread Swelling or pain that gets worse Fluid leaking from the skin (pus) Fever higher of 100.4 F (38.0 C) or higher after 2 days on antibiotics [id number] [facility]. [address] [place] [address], [place] [address]. All rights reserved. This information is not intended as a substitute for professional medical care. Always follow your healthcare professional's instructions. Additional Information VACCINATE! IT SAVES LIVES! Members of the community who have not yet received the COVID-19 vaccine and would like to receive it can visit one of [facility] vaccine clinics. There are many vaccine clinic locations within the [facility]. For locations and available times, please visit [email or web address] [email or web address] It is important to note that some COVID mobile vaccine clinics are held outdoors and may be canceled in rainy or stormy conditions. To learn more about pediatric vaccinations (ages 5-11), we invite you to visit the [facility] webpage. [email or web address]://[email or web address] [email or web address]-[email or web address] [email or web address].html To learn more about the COVID-19 vaccine, we invite you to visit the CDC website for a list of frequently asked questions. https://www.cdc.gov/coronavirus/2 019-ncov/vaccines/faq.html [facility] Patient Portal Access Instructions: Stay connected with your healthcare team and access your personal medical information anytime with the [facility] Patient Portal. If you would like a full copy of your medical records please contact the [facility] Medical Records Department Tuesday through Tuesday between 8a.m. and 4:30p.m. Please follow the directions below to access the portal: 1.Access the email account you provided upon registration to the hospital.2.Look for an invitation email from [facility].3.Open the email and access the invitation link: Accept Invitation to [facility].Fill in the required batista to create your account. Sign into [email or web address] with your username and password that you created in the above steps to stay up to date. You can then view a summary of results, a summary of your visits, and the ability to download your summaries to your computer or send the information securely to a physician. Remember that your healthcare information is confidential, so carefully consider who you will allow to register on the [facility] Patient Portal for access to your information. You can also access the [facility] Patient Portal on the [employer]. Simply click on Health Records under Health Data and then click on the [employer] logo. HOW TO SAFELY DISPOSE OF PRESCRIPTION MEDICATIONS Please use one of the following methods to safely dispose of your unused medications. 1.Use a drug disposal kit: the drug disposal pouch allows you to safely discard your old and unused drugs. Ask your nurse to give you one when you are discharged.2.Visit a local take-back location: Many local pharmacies and police departments have programs that collect old and unwanted prescription drugs. Call your local pharmacy or go to http://[employer] works/9K2Sp9h to find one close to you.3.Make use of household items: Use cat litter or old coffee grounds to dispose medications if other options are not available. Mix your drugs with these household products, seal them in an airtight container and throw it into the garbage. Call [facility]: [phone] to be sure your drugs can be disposed of in this way. Some medicines may require a different approach.4.Never flush your medications down the toilet. IF YOU HAVE BEEN PRESCRIBED AN OPIOIDS FOR PAIN If you have been prescribed an opioid (such as hydrocodone, oxycodone or morphine), it is critical to understand the possible side effects and risks of opioid pain medications. Even when taken as directed, opioids can have several side effects including: Tolerance, meaning you might need to take more of a medication for the same pain relief. Nausea, vomiting and/or constipation. Sleepiness, dizziness, dry mouth, confusion, depression or itching. Physical dependence, meaning you have withdrawal symptoms when a medication is stopped ? this can develop within a few days. KNOW YOUR RESPONSIBILITIES It is important to know exactly how much and how often to take the opioid pain medications you are prescribed. Never take opioids in higher amounts or more often than prescribed. Do not combine opioids with alcohol or other drugs that cause drowsiness, such as benzodiazepines, also known as benzos, including diazepam and alprazolam, muscle relaxants or sleep aids. Never sell or share prescription opioids. This is illegal. Store opioids in a secure place and out of reach of others (including children, family, friends and visitors). The last page(s) of this document has been signed and retained as a CHART COPY Signatures Patient Education Materials Cellulitis Skin Infection Medication Leaflets My discharge plan and instructions have been reviewed and explained to me and I,MAYTE SWEET understand my current condition and have read and understand these discharge instructions. I have received a written copy of the plan/instructions. If I have questions, I am aware that I should contact my doctor. Patient/Molder Offbearer Signature: Date/Time: Relationship to Patient: ____ Witness Name/Signature: Date/Time: [facility] 05-29-2024 Evaluation + Plan note Future Scheduled TestsIron Level 05/29/24Uric Acid 06/07/24A1C Hemoglobin 05/29/24Aldosterone with Na and K, 24 Hr Ur 08/23/23Complete Blood Count 05/29/24Complete Blood Count 11/09/23Lipid Profile 05/29/24Lipid Profile 11/09/23Insulin Level Total 08/23/23Albumin/Creatinine Ratio, Random Urine 05/29/24Albumin/Creatinine Ratio, Random Urine 11/09/23Albumin/Creatinine Ratio, Random Urine 11/21/23PTH, Intact 05/29/24Sedimentation Rate Automated 06/07/24Vitamin D Level 05/29/24Vitamin D Level 11/09/23Complete Metabolic Panel 05/29/24Complete Metabolic Panel 11/09/23Complete Metabolic Panel 06/07/24TIBC 05/29/24XR Foot Minimum 3 Views Left 06/07/24BD Bone Density DEXA Axial Skeleton 09/14/23 [facility] 03-07-2024 Hospital Discharge instructions Olena Perera MD - 03/07/2024 3:26 PM EDT Images from the original note were not included. Post-Operative Instructions: Cystoscopy, Ureteroscopy Medications Please finish taking the antibiotics that you were prescribed. Tylenol and/or Motrin may be given to help with generalized discomfort after surgery. You may alternate these so that one is taken every 6 hours. Take Pyridium as needed for burning with urination. This may cause urine to turn orange or red. Keep taking any medications that you have been on for urination. If you are on blood thinners - usually these can be restarted in 2-3 days if your urine is clear or pink, unless the doctor tells you otherwise. You may continue taking Aspirin immediately. Activity You may resume your normal diet. You should stick to fluids and bland foods at first, as you may be nauseous after surgery. Make sure to drink plenty of water and stay hydrated. You may shower immediately after surgery. There are no activity restrictions. Things to expect after surgery Blood in urine for several days with passage of small clots or bits of stone (if a stone was treated), which may persist as long as the stent is in place. Urgency and frequency of urination caused by surgery and the stent. Some people may experience leakage of urine. Pain and discomfort in the side that was operated on. When to call the surgeon: Fever higher than 102?F or shaking chills Repeated vomiting with inability to keep down fluids Severe pain not controlled with medication Inability to urinate for more than 8 hours For questions or problems, call our office Evenings and weekends: call the hospital electrolysis operator and ask for the urology resident on-call. In case of emergency, call 611. Follow-up appointment: You will receive a phone call with your follow-up appointment details if one has not already been scheduled for you. Please call if you need to reschedule. Future Appointments Date Time Provider Department Center 03/13/2024 10:50 AM Braden Hopkins MD MPH [id number] [employer] documented in this encounter [facility] Work Phone: 03-07-2024 Attending History and physical note H&P reviewed. The patient was examined and there are no changes to the H&P. Source Note - Braden Hopkins MD MPH - 03/02/2024 10:30 AM EDT Subjective Patient ID: Mayte Sweet is a 78 y.o. 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 HPI She is doing well today. She requires bowel prep information. Patient had complicated surgery for sizable tumor in middle part of ureter. Scheduled to have robotic possible open ureterectomy and ureteroscopy with stent vs nephroureterectomy. We tried to manage non-aggressively numerous for some time, but just can't get the whole growth out given the location and the size. She underwent biopsy and stent placement 08/2023. Bx of this ureteral mass was low grade. Her sCr is normal. Took her twice to the OR for URS, bx and ablation (10/2023 and 12/2023). This is a large area in the mid to distal ureter. I cannot completely clear this endoscopically. 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 Cystoscopy was performed 02/14/2024 and stents were removed. She has history of ex-lap done through a large mid line incision. This was for hernia surgeries. She has large bowel resection although I cannot see staple lines. History of hysterectomy. She lives with her . She does many of her daily activities independently. She can walk a block without cardiovascular limitation. She denies gross hematuria Review of Systems All systems were reviewed. Anything negative was noted in the HPI. Objective Physical Exam Gen: No acute distress Psych: Alert and oriented x3 Neuro: Normal ROM Resp: Nonlabored respirations CV: Regular rate and rhythm Abd: S, NT, ND. Large midline incision and multiple laparoscopic incisions across abdomen. : Deferred Skin: Warm, dry and intact without rashes Lymphatics: No peripheral edema Past Medical History: Diagnosis Date Anemia Cataract CKD (chronic kidney disease) stage 3 COPD (chronic obstructive pulmonary disease) (Multi) Mild, rarely uses rescue inhaler Hiatal hernia Hyperlipidemia Hypertension Managed by PCP Large bowel obstruction (Multi) s/p bowel resection, several years ago Macular degeneration Osteoporosis Type 2 diabetes mellitus (Multi) f/w endocrine Ureteral mass s/p URS Vision loss Wears glasses Vitamin D deficiency Past Surgical History: Procedure Laterality Date CHOLECYSTECTOMY COLON SURGERY Large bowel resection CYSTOSCOPY 12/26/2023 EXPLORATORY LAPAROTOMY HERNIA REPAIR HYSTERECTOMY OTHER SURGICAL HISTORY 12/26/2023 Right Ureteral Stent Exchange URETERAL STENT PLACEMENT 08/2023 biopsy and stent placement URETEROSCOPY 12/26/2023 Right Ureteroscopy with Biopsy Assessment/Plan Problem List Items Addressed This Visit Ureteral carcinoma (Multi) - Primary Current Assessment & Plan We tried to manage non-aggressively numerous for some time, but just can't get to the bottom of it. Scheduled to have robotic possible open ureterectomy and ureteruroscopy with stent vs nephrureterectomy. Signed consent today. Reviewed surgical risks, benefits, and alternatives. Discussed post-operative course. Given her large midline incision, unsure if robotic surgery can be performed due to potential adhesions. Likely plan to be done on split leg table with bump on right hand side, starting of with cystoscopy and ureteroscopy and putting five cuban up to level of tumor to help localize that. Will do bowel prep in case there are any issues. Plan: Bowel prep Follow up: 03/07/24 for surgery Will plan for split leg table with cysto and URS to diagnose location. Will attempt robotic but low threshold for ex-lap. Will bowel prep given her history. Went over the plethora of risks, benefits and alternatives. She understands her post-op course will be dictated based on what needs to be done and certainly likely shorter if able to do robotically but I have my doubts. Scribe Attestation By signing my name below, I, Delia Maldonado, attest that this documentation has been prepared under the direction and in the presence of Braden Hopkins MD MPH. [facility] Work Phone: 03-07-2024 History and physical note H&P reviewed. The patient was examined and there are no changes to the H&P. Source Note - Braden Hopkins MD MPH - 03/02/2024 10:30 AM EDT Subjective Patient ID: Mayte Sweet is a 78 y.o. 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 HPI She is doing well today. She requires bowel prep information. Patient had complicated surgery for sizable tumor in middle part of ureter. Scheduled to have robotic possible open ureterectomy and ureteroscopy with stent vs nephroureterectomy. We tried to manage non-aggressively numerous for some time, but just can't get the whole growth out given the location and the size. She underwent biopsy and stent placement 08/2023. Bx of this ureteral mass was low grade. Her sCr is normal. Took her twice to the OR for URS, bx and ablation (10/2023 and 12/2023). This is a large area in the mid to distal ureter. I cannot completely clear this endoscopically. 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 Cystoscopy was performed 02/14/2024 and stents were removed. She has history of ex-lap done through a large mid line incision. This was for hernia surgeries. She has large bowel resection although I cannot see staple lines. History of hysterectomy. She lives with her . She does many of her daily activities independently. She can walk a block without cardiovascular limitation. She denies gross hematuria Review of Systems All systems were reviewed. Anything negative was noted in the HPI. Objective Physical Exam Gen: No acute distress Psych: Alert and oriented x3 Neuro: Normal ROM Resp: Nonlabored respirations CV: Regular rate and rhythm Abd: S, NT, ND. Large midline incision and multiple laparoscopic incisions across abdomen. : Deferred Skin: Warm, dry and intact without rashes Lymphatics: No peripheral edema Past Medical History: Diagnosis Date Anemia Cataract CKD (chronic kidney disease) stage 3 COPD (chronic obstructive pulmonary disease) (Multi) Mild, rarely uses rescue inhaler Hiatal hernia Hyperlipidemia Hypertension Managed by PCP Large bowel obstruction (Multi) s/p bowel resection, several years ago Macular degeneration Osteoporosis Type 2 diabetes mellitus (Multi) f/w endocrine Ureteral mass s/p URS Vision loss Wears glasses Vitamin D deficiency Past Surgical History: Procedure Laterality Date CHOLECYSTECTOMY COLON SURGERY Large bowel resection CYSTOSCOPY 12/26/2023 EXPLORATORY LAPAROTOMY HERNIA REPAIR HYSTERECTOMY OTHER SURGICAL HISTORY 12/26/2023 Right Ureteral Stent Exchange URETERAL STENT PLACEMENT 08/2023 biopsy and stent placement URETEROSCOPY 12/26/2023 Right Ureteroscopy with Biopsy Assessment/Plan Problem List Items Addressed This Visit Ureteral carcinoma (Multi) - Primary Current Assessment & Plan We tried to manage non-aggressively numerous for some time, but just can't get to the bottom of it. Scheduled to have robotic possible open ureterectomy and ureteruroscopy with stent vs nephrureterectomy. Signed consent today. Reviewed surgical risks, benefits, and alternatives. Discussed post-operative course. Given her large midline incision, unsure if robotic surgery can be performed due to potential adhesions. Likely plan to be done on split leg table with bump on right hand side, starting of with cystoscopy and ureteroscopy and putting five cuban up to level of tumor to help localize that. Will do bowel prep in case there are any issues. Plan: Bowel prep Follow up: 03/07/24 for surgery Will plan for split leg table with cysto and URS to diagnose location. Will attempt robotic but low threshold for ex-lap. Will bowel prep given her history. Went over the plethora of risks, benefits and alternatives. She understands her post-op course will be dictated based on what needs to be done and certainly likely shorter if able to do robotically but I have my doubts. Scribe Attestation By signing my name below, I, Delia Maldonado, attest that this documentation has been prepared under the direction and in the presence of Braden Hopkins MD MPH. documented in this encounter [facility] Work Phone: 03-06-2024 History of Present illness Narrative Pharmacy Medication History Review Mayte Sweet is a 79 y.o. 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 Pharmacy called the patient prior to their scheduled procedure and reviewed the patient's [id number] medications for accuracy. Medications ADDED: none Medications CHANGED: none Medications REMOVED: Metformin 1000mg Please review updated prior to admission medication list and comments regarding how patient may be taking medications differently by going to Admission tab --> Admission Orders --> Admit Orders / Review prior to admission medications. Preferred pharmacy and allergies to be confirmed with patient by nursing the day of procedure. Sources used to complete the med history include spoke with patient, surescripts, oarrs, care everywhere Below are additional concerns with the patient's W[employer]K HANGER list. Patient has a recent fill of vitamin d3 50,000U, but states they have NOT started medication [facility] Please reach out via Secure Chat for questions documented in this encounter [facility] Work Phone: 03-02-2024 Evaluation + Plan note Associated Problem(s): Ureteral carcinoma (Multi) We tried to manage non-aggressively numerous for some time, but just can't get to the bottom of it. Scheduled to have robotic possible open ureterectomy and ureteruroscopy with stent vs nephrureterectomy. Signed consent today. Reviewed surgical risks, benefits, and alternatives. Discussed post-operative course. Given her large midline incision, unsure if robotic surgery can be performed due to potential adhesions. Likely plan to be done on split leg table with bump on right hand side, starting of with cystoscopy and ureteroscopy and putting five cuban up to level of tumor to help localize that. Will do bowel prep in case there are any issues. [facility] Work Phone: 03-02-2024 Miscellaneous Notes Associated Problem(s): Ureteral carcinoma (Multi) We tried to manage non-aggressively numerous for some time, but just can't get to the bottom of it. Scheduled to have robotic possible open ureterectomy and ureteruroscopy with stent vs nephrureterectomy. Signed consent today. Reviewed surgical risks, benefits, and alternatives. Discussed post-operative course. Given her large midline incision, unsure if robotic surgery can be performed due to potential adhesions. Likely plan to be done on split leg table with bump on right hand side, starting of with cystoscopy and ureteroscopy and putting five cuban up to level of tumor to help localize that. Will do bowel prep in case there are any issues. documented in this encounter [facility] Work Phone: 03-02-2024 History of Present illness Narrative Subjective Patient ID: Mayte Sweet is a 78 y.o. 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 HPI She is doing well today. She requires bowel prep information. Patient had complicated surgery for sizable tumor in middle part of ureter. Scheduled to have robotic possible open ureterectomy and ureteroscopy with stent vs nephroureterectomy. We tried to manage non-aggressively numerous for some time, but just can't get the whole growth out given the location and the size. She underwent biopsy and stent placement 08/2023. Bx of this ureteral mass was low grade. Her sCr is normal. Took her twice to the OR for URS, bx and ablation (10/2023 and 12/2023). This is a large area in the mid to distal ureter. I cannot completely clear this endoscopically. 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 Cystoscopy was performed 02/14/2024 and stents were removed. She has history of ex-lap done through a large mid line incision. This was for hernia surgeries. She has large bowel resection although I cannot see staple lines. History of hysterectomy. She lives with her . She does many of her daily activities independently. She can walk a block without cardiovascular limitation. She denies gross hematuria Review of Systems All systems were reviewed. Anything negative was noted in the HPI. Objective Physical Exam Gen: No acute distress Psych: Alert and oriented x3 Neuro: Normal ROM Resp: Nonlabored respirations CV: Regular rate and rhythm Abd: S, NT, ND. Large midline incision and multiple laparoscopic incisions across abdomen. : Deferred Skin: Warm, dry and intact without rashes Lymphatics: No peripheral edema Past Medical History: Diagnosis Date Anemia Cataract CKD (chronic kidney disease) stage 3 COPD (chronic obstructive pulmonary disease) (Multi) Mild, rarely uses rescue inhaler Hiatal hernia Hyperlipidemia Hypertension Managed by PCP Large bowel obstruction (Multi) s/p bowel resection, several years ago Macular degeneration Osteoporosis Type 2 diabetes mellitus (Multi) f/w endocrine Ureteral mass s/p URS Vision loss Wears glasses Vitamin D deficiency Past Surgical History: Procedure Laterality Date CHOLECYSTECTOMY COLON SURGERY Large bowel resection CYSTOSCOPY 12/26/2023 EXPLORATORY LAPAROTOMY HERNIA REPAIR HYSTERECTOMY OTHER SURGICAL HISTORY 12/26/2023 Right Ureteral Stent Exchange URETERAL STENT PLACEMENT 08/2023 biopsy and stent placement URETEROSCOPY 12/26/2023 Right Ureteroscopy with Biopsy Assessment/Plan Problem List Items Addressed This Visit Ureteral carcinoma (Multi) - Primary Current Assessment & Plan We tried to manage non-aggressively numerous for some time, but just can't get to the bottom of it. Scheduled to have robotic possible open ureterectomy and ureteruroscopy with stent vs nephrureterectomy. Signed consent today. Reviewed surgical risks, benefits, and alternatives. Discussed post-operative course. Given her large midline incision, unsure if robotic surgery can be performed due to potential adhesions. Likely plan to be done on split leg table with bump on right hand side, starting of with cystoscopy and ureteroscopy and putting five cuban up to level of tumor to help localize that. Will do bowel prep in case there are any issues. Plan: Bowel prep Follow up: 03/07/24 for surgery Will plan for split leg table with cysto and URS to diagnose location. Will attempt robotic but low threshold for ex-lap. Will bowel prep given her history. Went over the plethora of risks, benefits and alternatives. She understands her post-op course will be dictated based on what needs to be done and certainly likely shorter if able to do robotically but I have my doubts. Scribe Attestation By signing my name below, I, Delia Maldonado, attest that this documentation has been prepared under the direction and in the presence of Braden Hopkins MD MPH. documented in this encounter [facility] Work Phone: 02-14-2024 Evaluation + Plan note Associated Problem(s): Ureteral carcinoma (Multi) Considered for right robotic possible open ureterectomy and ureteruroscopy. Discussed risks regarding past surgeries and concerns for adhesions which would make open surgery necessary. Will return for preadmission in two weeks and see me at the same time. Will do bowel prep before just in case to allow for easy repair. Patient knows to RTC or present to emergency room if there is a fever greater than 105, pain that radiates to groin, nausea/vomiting, or confusion. [facility] Work Phone: 02-14-2024 Miscellaneous Notes Associated Problem(s): Ureteral carcinoma (Multi) Considered for right robotic possible open ureterectomy and ureteruroscopy. Discussed risks regarding past surgeries and concerns for adhesions which would make open surgery necessary. Will return for preadmission in two weeks and see me at the same time. Will do bowel prep before just in case to allow for easy repair. Patient knows to RTC or present to emergency room if there is a fever greater than 105, pain that radiates to groin, nausea/vomiting, or confusion. documented in this encounter [facility] Work Phone: 02-14-2024 History of Present illness Narrative Subjective Patient ID: Mayte Sweet is a 78 y.o. female with a 2cm mid to lower pole R ureteral mass s/p URS who presents for cystoscopy and stent removal prior to surgical removal of ureteral mass. HPI She is doing well today. pathologists determined ureteral mass to be atypical proliferation. 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 She underwent biopsy and stent placement 08/2023. Bx of this ureteral mass was low grade. Her sCr is normal. Recently we took her twice to the OR for URS, bx and ablation. This is a large area in the mid to distal ureter. I cannot completely clear this endoscopically. 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 She has history of ex-lap done through a large mid line incision. This was for hernia surgeries. She has large bowel resection although I cannot see staple lines. She lives with her . She does many of her daily activities independently. She can walk a block without cardiovascular limitation. She denies gross hematuria. Past medical, surgical, family and social history were reviewed and unchanged since last visit besides what is in the HPI. Review of Systems All systems were reviewed. Anything negative was noted in the HPI. Objective Physical Exam Gen: No acute distress Psych: Alert and oriented x3 Neuro: Normal ROM Resp: Nonlabored respirations CV: Regular rate and rhythm Abd: S, NT, ND. Large midline incision and multiple laparoscopic incisions across abdomen. : Deferred Skin: Warm, dry and intact without rashes Lymphatics: No peripheral edema Procedure: After informed consent was obtained, the patient was taken to the procedure room for cystoscopy due to indwelling ureteral stent, here for cystoscopic removal Cystoscopy Procedure Note: A sterile prep and drape was performed in standard fashion. Lidocaine was used for topical anesthesia. A flexible cystoscope was inserted into the urethra without difficulty revealing normal urethra. Then entered the bladder and the stent was seen emanating from the ureteral orifice. It was grasped and extracted through the urethra. It was inspected and found to be intact and removed. Post-Procedure: The cystoscope was removed. The vital signs were stable . The patient tolerated the procedure well. There were no complications. Past Medical History: Diagnosis Date COPD (chronic obstructive pulmonary disease) (Multi) Mild, rarely uses rescue inhaler Hyperlipidemia Hypertension Managed by PCP Large bowel obstruction (Multi) s/p bowel resection, several years ago Macular degeneration Type 2 diabetes mellitus (Multi) Ureteral mass 10/13/ seen by Dr. Hopkins Vision loss Wears glasses Past Surgical History: Procedure Laterality Date CHOLECYSTECTOMY COLON SURGERY Large bowel resection EXPLORATORY LAPAROTOMY HERNIA REPAIR HYSTERECTOMY URETERAL STENT PLACEMENT 08/2023 biopsy and stent placement Assessment/Plan Problem List Items Addressed This Visit Ureteral carcinoma (Multi) - Primary Current Assessment & Plan Considered for right robotic possible open ureterectomy and ureteruroscopy. Discussed risks regarding past surgeries and concerns for adhesions which would make open surgery necessary. Will return for preadmission in two weeks and see me at the same time. Will do bowel prep before just in case to allow for easy repair. Patient knows to RTC or present to emergency room if there is a fever greater than 105, pain that radiates to groin, nausea/vomiting, or confusion. Plan: Preadmission testing Bowel prep OR for robotic possible open ureterectomy Follow up: Two weeks Scribe Attestation By signing my name below, IoJry Scribe, attest that this documentation has been prepared under the direction and in the presence of Braden Hopkins MD MPH. documented in this encounter [facility] Work Phone: 01-13-2024 History of Present illness Narrative Arabella Sweet is a 78 y.o. female with a 2cm mid to lower pole R ureteral mass s/p URS who presents for POV. Patholog pathologists determined this to be atypical proliferation. 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 She underwent biopsy and stent placement 08/2023. Bx of this ureteral mass was low grade. Her sCr is normal. Recently we took her twice to the OR for URS, bx and ablation. This is a large area in the mid to distal ureter. I cannot completely clear this endoscopically. 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 She has history of ex-lap done through a large mid line incision. This was for hernia surgeries. She has large bowel resection although I cannot see staple lines. She lives with her . She does many of her daily activities independently. She can walk a block without cardiovascular limitation. She denies gross hematuria. Reports that she is doing well today. Past medical, surgical, family and social history were reviewed and unchanged since last visit besides what is in the HPI. Review of Systems All other systems reviewed and are negative. 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 We discussed her options moving forward. I explained that her possible treatment plan may be complicated by her past surgical history. Repeat URS and perform more biopsies. We may also use a laser to ablate this area. She would undergo surveillance thereafter including repeat CT scan and URS. Surgery to remove this area of the ureter. It is quite a large segment. I do not believe that she will require removal of her kidney. This option is more definitive but she will still require surveillance thereafter. I would recommend she move forward with surgically removing the area of the ureter. I would plan for a ureteroureterostomy or a reimplant. I think we can try to get this done robotically but it may be needed to be done open because of her history. We will get this scheduled. I would like to see them 3-4 weeks prior to her surgery to discuss any further questions and remove her stent. I will need to bowel prep her prior. Plan: Schedule removal of ureteral mass. Right robotic vs open U-U vs reimplant. She will need bowel prep. Will need cystoscopy and stent removal in office 3-4 weeks prior to surgery which can be done at [place]. Surgery at [facility] [place]. Follow up for pre operative visit will be scheduled. Scribe Attestation By signing my name below, ISaumya Scribe attest that this documentation has been prepared under the direction and in the presence of Braden Hopkins MD MPH. documented in this encounter [facility] Work Phone: 12-26-2023 Hospital Discharge instructions Britany Morales MD - 12/26/2023 3:47 PM EDT DEPARTMENT OF Urology DISCHARGE INSTRUCTIONS -- Ureteroscopy, Biopsy, Tumor Ablation, Stent Exchange Outpatient Surgery C O N F I D E N T I A L I N F O R M A T I O N Mayte Sewet Call [phone] during regular daytime business hours (8:00 am - 5:00 pm) and after 5:00 pm ask for the Urology resident with any questions or concerns. If it is a life-threatening situation, proceed to the nearest emergency department. Follow-up appointment: 01/13/24 Thank you for the opportunity to care for you today. Your health and healing are very important to us. We hope we made you feel as comfortable as possible and are committed to your recovery and continued well-being. The following is a brief overview of your Ureteroscopy, Biopsy, and Laser Ablation procedure today. Some of the information contained on this summary may be confidential. This information should be kept in your records and should be shared with your regular doctor. Physicians: Dr. Hopkins Procedure performed: biopsy of ureteral tumor What to Expect During your Recovery and Home Care Anesthesia Side Effects You received general anesthesia today. You may feel sleepy, tired, or have a sore throat. You may also feel drowsiness, dizziness, or inability to think clearly. For your safety, do not drive, drink alcoholic beverages, take any unprescribed medication or make any important decisions for 24 hours. A responsible adult should be with you for 24 hours. Activity and Recovery No heavy lifting today. Rest for the next 24 hours. Pain Control Unfortunately, you may experience pain after your procedure. Frequency and urgency to urinate and mild discomfort are expected. Adequate pain management can include alternative measures to help ease your pain and that can include over the counter Tylenol/ibuprofen and a heating pad. Do not take more than 4,000mg of Tylenol in a 24-hour period. You may have also been prescribed Pyridium (for burning sensation) and Ditropan(for bladder spasms) for pain control. Pyridium will turn your urine bright orange. Nausea/Vomiting Clear liquids are best tolerated at first. Start slow, advance your diet as tolerated to normal foods. Avoid spicy, greasy, heavy foods at first. Also, you may feel nauseous or like you need to vomit if you take any type of medication on an empty stomach. Call your physician if you are unable to eat or drink and have persistent vomiting. Signs of Bleeding You could have some blood in your urine off and on over the next several weeks. Your urine will be light pink to yellow. Treatment/wound care: It is okay to shower after surgery. Signs of Infection Signs of infection can include fever, chills, burning sensation with passing of urine, or severe abdominal pain. If you see any of these occur, please contact your doctor's office at [phone]. Any fever higher than 100.4, especially if associated with an ill feeling, abdominal pain, chills, or nausea should be reported to your surgeon. Assist in bowel movements/urination Increase fiber in diet Increase water (6 to 8 glasses) Increase walking Urination should occur within 6 hours of anesthesia If you have tried these methods and your bladder still feels full and you cannot use the bathroom, please go to your nearest Emergency room/contact your physician. documented in this encounter [facility] Work Phone: 12-26-2023 Attending History and physical note H&P reviewed. The patient was examined and there are no changes to the H&P. Source Note - Braden Hopkins MD MPH - 12/02/2023 9:00 AM EDT Subjective Mayte Sweet is a 78 y.o. female with a 2cm mid to lower pole R ureteral mass s/p URS who presents for POV. Patholog pathologists determined this to be atypical proliferation. 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 She underwent biopsy and stent placement 08/2023. Bx of this ureteral mass was low grade. Her sCr is normal. She has history of ex-lap done through a large mid line incision. She lives with her . She does many of her daily activities independently. She can walk a block without cardiovascular limitation. She denies gross hematuria. Past medical, surgical, family and social history were reviewed and unchanged since last visit besides what is in the HPI. Review of Systems All other systems reviewed and are negative. Objective Physical Exam Gen: No acute distress Psych: Alert and oriented x3 Neuro: Normal ROM Resp: Nonlabored respirations CV: Regular rate and rhythm Abd: S, NT, ND. 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 We discussed her options moving forward. I explained that her possible treatment plan may be complicated by her past surgical history. Repeat URS and perform more biopsies. We may also use a laser to ablate this area. She would undergo surveillance thereafter including repeat CT scan and URS. Surgery to remove this area of the ureter. It is quite a large segment. I do not believe that she will require removal of her kidney. This option is more definitive but she will still require surveillance thereafter. I would recommend she move forward with repeat URS to spare her a large surgery at this point in time. If we are unable to fully ablate this area, we will consider ureterectomy. The patient understands and agrees with this plan. Plan: Repeat R ureteroscopy, bx and laser ablation for large LG mid ureteral tumor 90 mins No PAT Scribe Attestation By signing my name below, IZo, Scribe attest that this documentation has been prepared under the direction and in the presence of Braden Hopkins MD MPH. [facility] Work Phone: 12-26-2023 Attending History and physical note H&P reviewed. The patient was examined and there are no changes to the H&P. Associated attestation - Braden Hopkins MD MPH - 12/26/2023 3:30 PM EDT Seen and examined. Source Note - Braden Hopkins MD MPH - 12/02/2023 9:00 AM EDT Arabella Sweet is a 78 y.o. female with a 2cm mid to lower pole R ureteral mass s/p URS who presents for POV. Patholog pathologists determined this to be atypical proliferation. 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 She underwent biopsy and stent placement 08/2023. Bx of this ureteral mass was low grade. Her sCr is normal. She has history of ex-lap done through a large mid line incision. She lives with her . She does many of her daily activities independently. She can walk a block without cardiovascular limitation. She denies gross hematuria. Past medical, surgical, family and social history were reviewed and unchanged since last visit besides what is in the HPI. Review of Systems All other systems reviewed and are negative. Objective Physical Exam Gen: No acute distress Psych: Alert and oriented x3 Neuro: Normal ROM Resp: Nonlabored respirations CV: Regular rate and rhythm Abd: S, NT, ND. 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 We discussed her options moving forward. I explained that her possible treatment plan may be complicated by her past surgical history. Repeat URS and perform more biopsies. We may also use a laser to ablate this area. She would undergo surveillance thereafter including repeat CT scan and URS. Surgery to remove this area of the ureter. It is quite a large segment. I do not believe that she will require removal of her kidney. This option is more definitive but she will still require surveillance thereafter. I would recommend she move forward with repeat URS to spare her a large surgery at this point in time. If we are unable to fully ablate this area, we will consider ureterectomy. The patient understands and agrees with this plan. Plan: Repeat R ureteroscopy, bx and laser ablation for large LG mid ureteral tumor 90 mins No PAT Scribe Attestation By signing my name below, I, Zo Cortez, Scribaleax attest that this documentation has been prepared under the direction and in the presence of Braden Hopkins MD MPH. [facility] Work Phone: 12-26-2023 History and physical note H&P reviewed. The patient was examined and there are no changes to the H&P. Source Note - Braden Hopkins MD MPH - 12/02/2023 9:00 AM EDT Arabella Sweet is a 78 y.o. female with a 2cm mid to lower pole R ureteral mass s/p URS who presents for POV. Patholog [facility] pathologists determined this to be atypical proliferation. 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 She underwent biopsy and stent placement 08/2023. Bx of this ureteral mass was low grade. Her sCr is normal. She has history of ex-lap done through a large mid line incision. She lives with her . She does many of her daily activities independently. She can walk a block without cardiovascular limitation. She denies gross hematuria. Past medical, surgical, family and social history were reviewed and unchanged since last visit besides what is in the HPI. Review of Systems All other systems reviewed and are negative. Objective Physical Exam Gen: No acute distress Psych: Alert and oriented x3 Neuro: Normal ROM Resp: Nonlabored respirations CV: Regular rate and rhythm Abd: S, NT, ND. 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 We discussed her options moving forward. I explained that her possible treatment plan may be complicated by her past surgical history. Repeat URS and perform more biopsies. We may also use a laser to ablate this area. She would undergo surveillance thereafter including repeat CT scan and URS. Surgery to remove this area of the ureter. It is quite a large segment. I do not believe that she will require removal of her kidney. This option is more definitive but she will still require surveillance thereafter. I would recommend she move forward with repeat URS to spare her a large surgery at this point in time. If we are unable to fully ablate this area, we will consider ureterectomy. The patient understands and agrees with this plan. Plan: Repeat R ureteroscopy, bx and laser ablation for large LG mid ureteral tumor 90 mins No PAT Scribe Attestation By signing my name below, IZo Scribe attest that this documentation has been prepared under the direction and in the presence of Braden Hopkins MD MPH. H&P reviewed. The patient was examined and there are no changes to the H&P. Associated attestation - Braden Hopkins MD MPH - 12/26/2023 3:30 PM EDT Seen and examined. Source Note - Braden Hopkins MD MPH - 12/02/2023 9:00 AM EDT Subjective Mayte Sweet is a 78 y.o. female with a 2cm mid to lower pole R ureteral mass s/p URS who presents for POV. Patholog pathologists determined this to be atypical proliferation. 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 She underwent biopsy and stent placement 08/2023. Bx of this ureteral mass was low grade. Her sCr is normal. She has history of ex-lap done through a large mid line incision. She lives with her . She does many of her daily activities independently. She can walk a block without cardiovascular limitation. She denies gross hematuria. Past medical, surgical, family and social history were reviewed and unchanged since last visit besides what is in the HPI. Review of Systems All other systems reviewed and are negative. Objective Physical Exam Gen: No acute distress Psych: Alert and oriented x3 Neuro: Normal ROM Resp: Nonlabored respirations CV: Regular rate and rhythm Abd: S, NT, ND. 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 We discussed her options moving forward. I explained that her possible treatment plan may be complicated by her past surgical history. Repeat URS and perform more biopsies. We may also use a laser to ablate this area. She would undergo surveillance thereafter including repeat CT scan and URS. Surgery to remove this area of the ureter. It is quite a large segment. I do not believe that she will require removal of her kidney. This option is more definitive but she will still require surveillance thereafter. I would recommend she move forward with repeat URS to spare her a large surgery at this point in time. If we are unable to fully ablate this area, we will consider ureterectomy. The patient understands and agrees with this plan. Plan: Repeat R ureteroscopy, bx and laser ablation for large LG mid ureteral tumor 90 mins No PAT Scribe Attestation By signing my name below, I, Delia Ruth attest that this documentation has been prepared under the direction and in the presence of Braden Hopkins MD MPH. documented in this encounter [facility] Work Phone: 12-02-2023 Evaluation + Plan note Associated Problem(s): Ureteral carcinoma (Multi) I had an extensive discussion with the patient and her regarding her pathology and diagnosis of LG ureteral carcinoma. We discussed her options moving forward. I explained that her possible treatment plan may be complicated by her past surgical history. Repeat URS and perform more biopsies. We may also use a laser to ablate this area. She would undergo surveillance thereafter including repeat CT scan and URS. Surgery to remove this area of the ureter. It is quite a large segment. I do not believe that she will require removal of her kidney. This option is more definitive but she will still require surveillance thereafter. I would recommend she move forward with repeat URS to spare her a large surgery at this point in time. If we are unable to fully ablate this area, we will consider ureterectomy. The patient understands and agrees with this plan. [facility] Work Phone: 12-02-2023 Miscellaneous Notes Associated Problem(s): Ureteral carcinoma (Multi) I had an extensive discussion with the patient and her regarding her pathology and diagnosis of LG ureteral carcinoma. We discussed her options moving forward. I explained that her possible treatment plan may be complicated by her past surgical history. Repeat URS and perform more biopsies. We may also use a laser to ablate this area. She would undergo surveillance thereafter including repeat CT scan and URS. Surgery to remove this area of the ureter. It is quite a large segment. I do not believe that she will require removal of her kidney. This option is more definitive but she will still require surveillance thereafter. I would recommend she move forward with repeat URS to spare her a large surgery at this point in time. If we are unable to fully ablate this area, we will consider ureterectomy. The patient understands and agrees with this plan. documented in this encounter [facility] Work Phone: 12-02-2023 History of Present illness Narrative Arabella Sweet is a 78 y.o. female with a 2cm mid to lower pole R ureteral mass s/p URS who presents for POV. Patholog pathologists determined this to be atypical proliferation. 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 She underwent biopsy and stent placement 08/2023. Bx of this ureteral mass was low grade. Her sCr is normal. She has history of ex-lap done through a large mid line incision. She lives with her . She does many of her daily activities independently. She can walk a block without cardiovascular limitation. She denies gross hematuria. Past medical, surgical, family and social history were reviewed and unchanged since last visit besides what is in the HPI. Review of Systems All other systems reviewed and are negative. Objective Physical Exam Gen: No acute distress Psych: Alert and oriented x3 Neuro: Normal ROM Resp: Nonlabored respirations CV: Regular rate and rhythm Abd: S, NT, ND. 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 We discussed her options moving forward. I explained that her possible treatment plan may be complicated by her past surgical history. Repeat URS and perform more biopsies. We may also use a laser to ablate this area. She would undergo surveillance thereafter including repeat CT scan and URS. Surgery to remove this area of the ureter. It is quite a large segment. I do not believe that she will require removal of her kidney. This option is more definitive but she will still require surveillance thereafter. I would recommend she move forward with repeat URS to spare her a large surgery at this point in time. If we are unable to fully ablate this area, we will consider ureterectomy. The patient understands and agrees with this plan. Plan: Repeat R ureteroscopy, bx and laser ablation for large LG mid ureteral tumor 90 mins No PAT Scribe Attestation By signing my name below, I, Zo Cortez, Scribe attest that this documentation has been prepared under the direction and in the presence of Braden Hopkins MD MPH. documented in this encounter [facility] Work Phone: 11-07-2023 Hospital Discharge instructions Hesham Durbin MD - 11/07/2023 1:15 PM EDT DEPARTMENT OF Urology DISCHARGE INSTRUCTIONS Ureteroscopy Outpatient Surgery C O N F I D E N T I A L I N F O R M A T I O N Mayte Sweet Call [phone] during regular daytime business hours (8:00 am - 5:00 pm) and after 5:00 pm ask for the Urology resident with any questions or concerns. If it is a life-threatening situation, proceed to the nearest emergency department. Thank you for the opportunity to care for you today. Your health and healing are very important to us. We hope we made you feel as comfortable as possible and are committed to your recovery and continued well-being. The following is a brief overview of your Ureteroscopy tumor biopsy procedure today. Some of the information contained on this summary may be confidential. This information should be kept in your records and should be shared with your regular doctor. Physicians: Dr. Hopkins Procedure performed: biopsy and lasering of your ureteral tumor What to Expect During your Recovery and Home Care Anesthesia Side Effects You received anesthesia today. You may feel sleepy, tired, or have a sore throat. You may also feel drowsiness, dizziness, or inability to think clearly. For your safety, do not drive, drink alcoholic beverages, take any unprescribed medication or make any important decisions for 24 hours. A responsible adult should be with you for 24 hours. Activity and Recovery No heavy lifting today. Rest for the next 24 hours. Pain Control Unfortunately, you may experience pain after your procedure. Frequency and urgency to urinate and mild discomfort are expected. Adequate pain management can include alternative measures to help ease your pain and that can include over the counter Tylenol/ibuprofen and a heating pad or oxycodone which can be taken as prescribed as needed for breakthrough pain. Do not take more than 4,000mg of Tylenol in a 24-hour period. You may have also been prescribed Pyridium (for burning sensation). Pyridium will turn your urine bright orange. Nausea/Vomiting Clear liquids are best tolerated at first. Start slow, advance your diet as tolerated to normal foods. Avoid spicy, greasy, heavy foods at first. Also, you may feel nauseous or like you need to vomit if you take any type of medication on an empty stomach. Call your physician if you are unable to eat or drink and have persistent vomiting. Signs of Bleeding You could have some blood in your urine off and on over the next several weeks. Your urine will be light pink to yellow. Treatment/wound care: It is okay to shower 24 hours after time of surgery. Signs of Infection Signs of infection can include fever, chills, burning sensation with passing of urine, or severe abdominal pain. If you see any of these occur, please contact your doctor's office at [phone]. Any fever higher than 100.4, especially if associated with an ill feeling, abdominal pain, chills, or nausea should be reported to your surgeon. Assist in bowel movements/urination Increase fiber in diet Increase water (6 to 8 glasses) Increase walking Urination should occur within 6 hours of anesthesia If you have tried these methods and your bladder still feels full and you cannot use the bathroom, please go to your nearest Emergency room/contact your physician. Additional Instructions: You also had a stent placed today from your kidney down into your bladder. This helps keep the urinary tract open and prevents blockages of urine flow. The stent can be irritating and can cause some frequency, urgency and blood in your urine when you go to the bathroom. It is important to drink plenty of water and take medications as prescribed. You may be sent home with Pyridium which turns your urine bright orange. Applying a heating pad to your back will also help with this kind of pain. It will be determined at your follow up appointment when the stent will be removed. documented in this encounter [facility] Work Phone: 11-07-2023 Note Formatting of this n ote is different from the original. Selective cystology, Ureteroscopy with ureteral biopsy and tumor ablation, right ureteral stent exchange (R) Operative Note Date: 11/07/2023 OR Location: [facility] OR Name: Mayte Sweet, : 1945, Age: 78 y.o., , Sex: female Diagnosis Pre-op Diagnosis * Mass of ureter [N28.89] Post-op Diagnosis * Mass of ureter [N28.89] Procedures Selective cystology, Ureteroscopy with ureteral biopsy and tumor ablation, right ureteral stent exchange [id number] - ID CYSTO W/URTROSCOPY&/PYELOSCOPY DX CHG UROGRAPHY RETROGRADE WITH/WO KUB [[id number]] ID CYSTO W/INSERT URETERAL STENT [[id number]] ID CYSTO/PYELOSCOPY RESCJ PELVIC TUMOR [[id number]] Surgeons * Braden Hopkins - Primary Resident/Fellow/Other Intermediate Frame Tender: Surgeons and Role: * Hesham Durbin MD - Assisting Procedure Summary Anesthesia: General ASA: III Anesthesia Staff: Anesthesiologist: Shreya Collins MD SECOND WATCH SERGEANT: Derek Arceo APRN-SECOND WATCH SERGEANT C-AA: AKANKSHA Will Estimated Blood Loss: 5mL Intra-op Medications: Administrations occurring from 1100 to 1300 on 11/07/23: Medication Name Total Dose ceFAZolin in dextrose (iso-os) (Ancef) IVPB 2 g 2 g Anesthesia Record Intraprocedure I/O Totals Intake lactated Ringer's 1000.00 mL Total Intake 1000 mL Specimen: ID Type Source Tests Collected by Time 1 : Right Ureter Fluid for cytology Non-Gynecologic Cytology BLADDER WASH CYTOLOGY CONSULTATION (NON-GYNECOLOGIC) Braden Hopkins MD MPH 11/07/2023 7341 2 : RIGHT UPPER TRACT TUMOR Tissue URETER BIOPSY RIGHT SURGICAL PATHOLOGY EXAM Braden Hopkins MD MPH 11/07/2023 1225 Staff: Process Laboratory Specialist: Atilio Fang RN Relief Process Laboratory Specialist: Jeanie Huerta RN Relief Scrub: Kim Isaac RN Scrub Person: Cain Marcy; Jeanine Bowden, MALCOLM Drains and/or Catheters: * None in log * Tourniquet Times: Implants: Implants Type Name Action Serial No. Stent STENT, INLAY OPTIMA, 6FR X 24CM - [id number] - [id number] Implanted [id number] Findings: 2-3 tumor at pelvic brim. Incomplete ablation. No tumor seen proximally. Indications: Mayte Sweet is an 78 y.o. female who is having surgery for Mass of ureter [N28.89]. The patient was seen in the preoperative area. The risks, benefits, complications, treatment options, non-operative alternatives, expected recovery and outcomes were discussed with the patient. The possibilities of reaction to medication, pulmonary aspiration, injury to surrounding structures, bleeding, recurrent infection, the need for additional procedures, failure to diagnose a condition, and creating a complication requiring transfusion or operation were discussed with the patient. The patient concurred with the proposed plan, giving informed consent. The site of surgery was properly noted/marked if necessary per policy. The patient has been actively warmed in preoperative area. Preoperative antibiotics have been ordered and given within 1 hours of incision. Venous thrombosis prophylaxis have been ordered including bilateral sequential compression devices Procedure Details: After time out she was prepped and draped. A 21 fr cystoscope was inserted and full cystoscopy was preformed. No tumors or lesions were seen in the bladder. The ureteral stent emerging from her right UO was grasped and pulled to the meatus. A sensor wire was inserted into the stent which was then removed. A dual lumen was inserted into the mid ureter. Selective cytology was obtained with a saline barbotage. Contrast was injected and the tumor was seen in the mid ureter. There was also severe hydronephrosis. A wire was inserted. A rigid ureteroscope was inserted to the level seen on the retrograde pyelogram. A tumor was seen filling the ureteral lumen. A access sheath was inserted and a Bigopsy tool was used to sample the tumor several times. We then inserted a flexible ureteroscope. This was advanced up the the level of the renal pelvis. We carefully inspected the proximal collecting system and there was no sign of malignancy. We then pulled the scope back to the tumor were a 272 micron laser was inserted and used to ablate the tumor. Due to the size of the tumor we were able to open the channel but not confidently treat the entire area without causing significant harm to the ureter. A basket was inserted and used to grasp some areas of the tumor and remove them. We then remove the scope and placed a 6x26 JJ stent cystoscopically with the proximal curl confirmed in the kidney on fluoroscopy. The bladder was drained and the patient was woken up and brought to pacu. Complications: None; patient tolerated the procedure well. Disposition: PACU - hemodynamically stable. Condition: stable Attending Attestation: Braden Hopkins T [facility] Work Phone: 11-07-2023 Miscellaneous Notes Selective cystology, Ureteroscopy with ureteral biopsy and tumor ablation, right ureteral stent exchange (R) Operative Note Date: 11/07/2023 OR Location: [facility] OR Name: Mayte Sweet, : 1945, Age: 78 y.o., , Sex: female Diagnosis Pre-op Diagnosis * Mass of ureter [N28.89] Post-op Diagnosis * Mass of ureter [N28.89] Procedures Selective cystology, Ureteroscopy with ureteral biopsy and tumor ablation, right ureteral stent exchange [id number] - ID CYSTO W/URTROSCOPY&/PYELOSCOPY DX CHG UROGRAPHY RETROGRADE WITH/WO KUB [[id number]] ID CYSTO W/INSERT URETERAL STENT [[id number]] ID CYSTO/PYELOSCOPY RESCJ PELVIC TUMOR [[id number]] Surgeons * Braden Hopkins - Primary Resident/Fellow/Other Intermediate Frame Tender: Surgeons and Role: * Hesham Durbin MD - Assisting Procedure Summary Anesthesia: General ASA: III Anesthesia Staff: Anesthesiologist: Shreya Collins MD SECOND WATCH SERGEANT: Derek Arceo APRN-JEN C-AA: AKANKSHA Will Estimated Blood Loss: 5mL Intra-op Medications: Administrations occurring from 1100 to 1300 on 11/07/23: Medication Name Total Dose ceFAZolin in dextrose (iso-os) (Ancef) IVPB 2 g 2 g Anesthesia Record Intraprocedure I/O Totals Intake lactated Ringer's 1000.00 mL Total Intake 1000 mL Specimen: ID Type Source Tests Collected by Time 1 : Right Ureter Fluid for cytology Non-Gynecologic Cytology BLADDER WASH CYTOLOGY CONSULTATION (NON-GYNECOLOGIC) Braden Hopkins MD MPH 11/07/2023 5673 2 : RIGHT UPPER TRACT TUMOR Tissue URETER BIOPSY RIGHT SURGICAL PATHOLOGY EXAM Braden Hopkins MD MPH 11/07/2023 1225 Staff: Process Laboratory Specialist: Atilio Fang RN Relief Process Laboratory Specialist: Jeanie Huerta RN Relief Scrub: Kim Isaac RN Scrub Person: Cain Vidal; Jeanine Bowden RN Drains and/or Catheters: * None in log * Tourniquet Times: Implants: Implants Type Name Action Serial No. Stent STENT, INLAY OPTIMA, 6FR X 24CM - [id number] - [id number] Implanted [id number] Findings: 2-3 tumor at pelvic brim. Incomplete ablation. No tumor seen proximally. Indications: Mayte Sweet is an 78 y.o. female who is having surgery for Mass of ureter [N28.89]. The patient was seen in the preoperative area. The risks, benefits, complications, treatment options, non-operative alternatives, expected recovery and outcomes were discussed with the patient. The possibilities of reaction to medication, pulmonary aspiration, injury to surrounding structures, bleeding, recurrent infection, the need for additional procedures, failure to diagnose a condition, and creating a complication requiring transfusion or operation were discussed with the patient. The patient concurred with the proposed plan, giving informed consent. The site of surgery was properly noted/marked if necessary per policy. The patient has been actively warmed in preoperative area. Preoperative antibiotics have been ordered and given within 1 hours of incision. Venous thrombosis prophylaxis have been ordered including bilateral sequential compression devices Procedure Details: After time out she was prepped and draped. A 21 fr cystoscope was inserted and full cystoscopy was preformed. No tumors or lesions were seen in the bladder. The ureteral stent emerging from her right UO was grasped and pulled to the meatus. A sensor wire was inserted into the stent which was then removed. A dual lumen was inserted into the mid ureter. Selective cytology was obtained with a saline barbotage. Contrast was injected and the tumor was seen in the mid ureter. There was also severe hydronephrosis. A wire was inserted. A rigid ureteroscope was inserted to the level seen on the retrograde pyelogram. A tumor was seen filling the ureteral lumen. A access sheath was inserted and a Bigopsy tool was used to sample the tumor several times. We then inserted a flexible ureteroscope. This was advanced up the the level of the renal pelvis. We carefully inspected the proximal collecting system and there was no sign of malignancy. We then pulled the scope back to the tumor were a 272 micron laser was inserted and used to ablate the tumor. Due to the size of the tumor we were able to open the channel but not confidently treat the entire area without causing significant harm to the ureter. A basket was inserted and used to grasp some areas of the tumor and remove them. We then remove the scope and placed a 6x26 JJ stent cystoscopically with the proximal curl confirmed in the kidney on fluoroscopy. The bladder was drained and the patient was woken up and brought to pacu. Complications: None; patient tolerated the procedure well. Disposition: PACU - hemodynamically stable. Condition: stable Attending Attestation: Braden Hopkins documented in this encounter [facility] Work Phone: 11-07-2023 Attending History and physical note H&P reviewed. The patient was examined and there are no changes to the H&P. No images in chart. Plan to proceed with diagnostic ureteroscopy with possible biopsy Associated attestation - Braden Hopkins MD MPH - 11/07/2023 1:35 PM EDT Seen and examined. Source Note - Braden Hopkins MD MPH - 10/14/2023 9:00 AM EDT Subjective Mayte Sweet is a 78 y.o. female with a R mid ureteral mass who presents as a new patient kindly referred by her local urologist, Dr. Pronao. She currently has a stent in place in R ureter. She was planned for nephroureterectomy however she is at a high risk for surgical complications. She has history of ex-lap done through a large mid line incision. They underwent biopsy and stent placement 08/2023. Bx of this ureteral mass was low grade. Her sCr is normal. She lives with her . She does many of her daily activities independently. She can walk a block without cardiovascular limitation. She denies gross hematuria. PMHx: COPD, DM II, HTN, ureteral mass, PSHx: hysterectomy, ex-lap, cholecystectomy, hernia repair, large bowel resection Social: Tobacco Use: current smoker Family: no cancers Review of Systems All other systems reviewed and are negative. Objective Physical Exam Gen: No acute distress Psych: Alert and oriented x3 Neuro: Normal ROM Resp: Nonlabored respirations CV: Regular rate and rhythm Abd: S, NT, ND. Large mid line incision, paramedian incision : Deferred Skin: Warm, dry and intact without rashes Lymphatics: No peripheral edema Assessment/Plan Problem List Items Addressed This Visit ICD-10-CM Ureteral mass - Primary N28.89 I had an extensive discussion with the patient and her regarding her new dx of R mid ureteral mass. We discussed that her possible treatment plan may be complicated by her past surgical history. We also had a discussion regarding connection between urothelial carcinomas and smoking history. I recommended she investigate smoking cessation resources with her PCP. Reduction or cessation of her smoking will result in better outcomes and better healing from surgery. I do not have access to her imaging. We discussed a treatment plan moving forward. I would like to request her imaging from [facility] prior to moving forward with diagnostic ureteroscopy with potential biopsy to assess the ureter and determine whether this mass is multi-focal and if endoscopic management is possible. If I am unable to obtain this or it is inappropriate for our needs, we discussed moving forward with imaging through a CT urogram. The patient understands and agrees with this plan. Other Visit Diagnoses Codes Mass of ureter N28.89 Thank you for the kind referral and allowing me to take part in the care of this patient. Plan: Request imaging from [facility] If unable to obtain or not appropriate, order CT urogram Plan for diagnostic ureteroscopy and possible bx Scribe Attestation By signing my name below, IZo, Delia attest that this documentation has been prepared under the direction and in the presence of Braden Hopkins MD MPH. [facility] Work Phone: 11-07-2023 History and physical note H&P reviewed. The patient was examined and there are no changes to the H&P. No images in chart. Plan to proceed with diagnostic ureteroscopy with possible biopsy Associated attestation - Braden Hopkins MD MPH - 11/07/2023 1:35 PM EDT Seen and examined. Source Note - Braden Hopkins MD MPH - 10/14/2023 9:00 AM EDT Subjective Mayte Sweet is a 78 y.o. female with a R mid ureteral mass who presents as a new patient kindly referred by her local urologist, Dr. Short. She currently has a stent in place in R ureter. She was planned for nephroureterectomy however she is at a high risk for surgical complications. She has history of ex-lap done through a large mid line incision. They underwent biopsy and stent placement 08/2023. Bx of this ureteral mass was low grade. Her sCr is normal. She lives with her . She does many of her daily activities independently. She can walk a block without cardiovascular limitation. She denies gross hematuria. PMHx: COPD, DM II, HTN, ureteral mass, PSHx: hysterectomy, ex-lap, cholecystectomy, hernia repair, large bowel resection Social: Tobacco Use: current smoker Family: no cancers Review of Systems All other systems reviewed and are negative. Objective Physical Exam Gen: No acute distress Psych: Alert and oriented x3 Neuro: Normal ROM Resp: Nonlabored respirations CV: Regular rate and rhythm Abd: S, NT, ND. Large mid line incision, paramedian incision : Deferred Skin: Warm, dry and intact without rashes Lymphatics: No peripheral edema Assessment/Plan Problem List Items Addressed This Visit ICD-10-CM Ureteral mass - Primary N28.89 I had an extensive discussion with the patient and her regarding her new dx of R mid ureteral mass. We discussed that her possible treatment plan may be complicated by her past surgical history. We also had a discussion regarding connection between urothelial carcinomas and smoking history. I recommended she investigate smoking cessation resources with her PCP. Reduction or cessation of her smoking will result in better outcomes and better healing from surgery. I do not have access to her imaging. We discussed a treatment plan moving forward. I would like to request her imaging from [facility] prior to moving forward with diagnostic ureteroscopy with potential biopsy to assess the ureter and determine whether this mass is multi-focal and if endoscopic management is possible. If I am unable to obtain this or it is inappropriate for our needs, we discussed moving forward with imaging through a CT urogram. The patient understands and agrees with this plan. Other Visit Diagnoses Codes Mass of ureter N28.89 Thank you for the kind referral and allowing me to take part in the care of this patient. Plan: Request imaging from [facility] If unable to obtain or not appropriate, order CT urogram Plan for diagnostic ureteroscopy and possible bx Scribe Attestation By signing my name below, I, Zo Cortez, Scribalexa attest that this documentation has been prepared under the direction and in the presence of Braden Hopkins MD MPH. documented in this encounter [facility] Work Phone: 10-14-2023 Evaluation + Plan note Associated Problem(s): Ureteral mass I had an extensive discussion with the patient and her regarding her new dx of R mid ureteral mass. We discussed that her possible treatment plan may be complicated by her past surgical history. We also had a discussion regarding connection between urothelial carcinomas and smoking history. I recommended she investigate smoking cessation resources with her PCP. Reduction or cessation of her smoking will result in better outcomes and better healing from surgery. I do not have access to her imaging. We discussed a treatment plan moving forward. I would like to request her imaging from [facility] prior to moving forward with diagnostic ureteroscopy with potential biopsy to assess the ureter and determine whether this mass is multi-focal and if endoscopic management is possible. If I am unable to obtain this or it is inappropriate for our needs, we discussed moving forward with imaging through a CT urogram. The patient understands and agrees with this plan. [facility] Work Phone: 10-14-2023 Miscellaneous Notes Associated Problem(s): Ureteral mass I had an extensive discussion with the patient and her regarding her new dx of R mid ureteral mass. We discussed that her possible treatment plan may be complicated by her past surgical history. We also had a discussion regarding connection between urothelial carcinomas and smoking history. I recommended she investigate smoking cessation resources with her PCP. Reduction or cessation of her smoking will result in better outcomes and better healing from surgery. I do not have access to her imaging. We discussed a treatment plan moving forward. I would like to request her imaging from [facility] prior to moving forward with diagnostic ureteroscopy with potential biopsy to assess the ureter and determine whether this mass is multi-focal and if endoscopic management is possible. If I am unable to obtain this or it is inappropriate for our needs, we discussed moving forward with imaging through a CT urogram. The patient understands and agrees with this plan. documented in this encounter [facility] Work Phone: 10-14-2023 History of Present illness Narrative Subjective Mayte Sweet is a 78 y.o. female with a R mid ureteral mass who presents as a new patient kindly referred by her local urologist, Dr. Short. She currently has a stent in place in R ureter. She was planned for nephroureterectomy however she is at a high risk for surgical complications. She has history of ex-lap done through a large mid line incision. They underwent biopsy and stent placement 08/2023. Bx of this ureteral mass was low grade. Her sCr is normal. She lives with her . She does many of her daily activities independently. She can walk a block without cardiovascular limitation. She denies gross hematuria. PMHx: COPD, DM II, HTN, ureteral mass, PSHx: hysterectomy, ex-lap, cholecystectomy, hernia repair, large bowel resection Social: Tobacco Use: current smoker Family: no cancers Review of Systems All other systems reviewed and are negative. Objective Physical Exam Gen: No acute distress Psych: Alert and oriented x3 Neuro: Normal ROM Resp: Nonlabored respirations CV: Regular rate and rhythm Abd: S, NT, ND. Large mid line incision, paramedian incision : Deferred Skin: Warm, dry and intact without rashes Lymphatics: No peripheral edema Assessment/Plan Problem List Items Addressed This Visit ICD-10-CM Ureteral mass - Primary N28.89 I had an extensive discussion with the patient and her regarding her new dx of R mid ureteral mass. We discussed that her possible treatment plan may be complicated by her past surgical history. We also had a discussion regarding connection between urothelial carcinomas and smoking history. I recommended she investigate smoking cessation resources with her PCP. Reduction or cessation of her smoking will result in better outcomes and better healing from surgery. I do not have access to her imaging. We discussed a treatment plan moving forward. I would like to request her imaging from [facility] prior to moving forward with diagnostic ureteroscopy with potential biopsy to assess the ureter and determine whether this mass is multi-focal and if endoscopic management is possible. If I am unable to obtain this or it is inappropriate for our needs, we discussed moving forward with imaging through a CT urogram. The patient understands and agrees with this plan. Other Visit Diagnoses Codes Mass of ureter N28.89 Thank you for the kind referral and allowing me to take part in the care of this patient. Plan: Request imaging from [facility] If unable to obtain or not appropriate, order CT urogram Plan for diagnostic ureteroscopy and possible bx Scribe Attestation By signing my name below, IZo Scribe attest that this documentation has been prepared under the direction and in the presence of Braden Hopknis MD MPH. documented in this encounter [facility] Work Phone: 10-02-2023 Note . MICRO - Microbiology PROCEDURE: Urine Culture [*1] SOURCE: Urine, Clean Catch BODY SITE: COLLECTED DATE/TIME: 09/30/2023 17:01 EDT RECEIVED DATE/TIME: 10/01/2023 13:18 EDT START DATE/TIME: 10/01/2023 13:18 EDT FREE TEXT SOURCE: FINAL REPORTS Final Report [] Verified Date/Time/Personnel: 10/02/2023 09:09 EDT <10,000 cfu/ml. No Significant growth. Sensitivity not indicated. Performing Locations *1: This test was performed at: [facility], [address] [place] [address], [id number] , Replaced by [facility] ([place]) 08-10-2023 Discharge summary Note Date/Time August 10, 2023 10:53am [facility] Medical Records Department [address] [place] [address] Instructions for Home/Discharge Instructions 08/10/23 1052 MR#: [id number] Acct: [id number] Name: MAYTE SWEET Rep #:[id number] : 1945 78 From: Hesham roman MD PCP: MENDEZ Cash tus:ADM IN Discharge Instructions Diet Discharge Diet: Low fat / Low cholesterol and Carb Control Diet Activity Discharge Activity: Return to Normal Activity Dressing / Incision Call your doctor if you observe: Fever of 101 or Higher, Shortness of breath, Dizziness, Fainting spells, Swelling in the ankles, Chest pain and Increased palpitations (irregular heartbeat) Follow Up Care Test Results: Test results from this visit will be discussed in further detail at your follow-up appointment, if applicable. Discharge Plan Admission Admit Date/Time: 08/05/23 20:27 Attending Provider: Hesham Solomon Primary Care Provider: Adelina Guallpa NP Consulting Providers: Art Alcaraz; Roshan Simon; Baldev Gaxiola Discharge Orders/Prescriptions Prescriptions: New cefdinir 300 mg capsule 300 mg PO BID 7 Days Qty: 14 0RF Continued PreserVision AREDS-2 250-90-40-1 mg capsule 1 tab PO BID simvastatin 40 MG tablet 40 mg PO QHS glimepiride 2 MG tablet 2 mg PO DAILY cholecalciferol (vitamin D3) 1,250 mcg (50,000 unit) capsule 1,250 mcg PO .MONTHLY Patient Comments: TAKE 1 CAPSULE BY MOUTH EVERY MONTH FOR 90 DAYS losartan 25 mg tablet 25 mg PO DAILY Patient Comments: TAKE 1 TABLET BY MOUTH EVERY DAY metformin 750 mg tablet extended release 24 hr 750 mg PO DAILY Patient Comments: TAKE 1 TABLET BY MOUTH EVERY DAY Referrals / Follow Up: Adelina Guallpa NP, MENDEZ [Primary Care Provider] - Within 1 Week Roshan Simon MD [Med Staff - Active Staff] - Within 2 Weeks Disposition Disposition (needs filled in before D/C Order can be placed): Home, Self Care 08/10/23 1056<Electronically signed by Hesham Solomon MD>Hesham Solomon MD CC: MENDEZ Guallpa; Dr. Baldev Gaxiola DO; Dr. Roshan Pa MD; Dr. Art Alcaraz MD ~ Signed [facility] Work Phone: [phone]) 368-182002-14-2024 Consult note Author Roshan Simon [facility] August 10, 2023 8:04am Note Date/Time August 10, 2023 8:04am [facility] Medical Records Department [address] [place] [address] Consultation 08/10/23 0803 MR#: [id number] Acct: [id number] Name: MAYTE SWEET Rep #:[id number] : 1945 78 From: Roshan Simon MD PCP: MENDEZ Cash Sta tus:ADM IN Location: [facility] [id number] Consult Date of Consult: 08/10/23 Reason for Consult 78-year-old female status post stent placement on the right for infection with astone. She looks much better this morning I think once she is discharged she needs a follow-up in my office for an appointment I will have my office call herto get her set up for outpatient surgery to laser the stones once the infection is cleared she will need a preop appointment call me with questions 08/10/23 0804 <Electronically signed by Roshan Simon MD> Cosigner Signature (if applicable): CC: MENDEZ Guallpa; Dr. Baldev Gaxiola DO; Dr. Roshan Pa MD; Dr. Art Alcaraz MD~ Signed [facility] Work Phone: 1(798) 380-848302-13-2024 Progress note Author [facility] August 09, 2023 1:41pm Note Date/Time August 09, 2023 12:18pm [facility] Medical Records Department [address] [place] [address] Progress Note - Hospitalist 08/09/23 1218 MR#: [id number] Acct: [id number] Name: MAYTE SWEET Rep #:[id number] : 1945 78 From: Baldev aquino DO PCP: MENDEZ Cash tus:ADM IN Location: [place] [address] Reason for Visit Reason for Visit: Diagnoses Sepsis, unspecified organism (08/05/23) Calculus of ureter (08/05/23) Urinary tract infection, site not specified (08/05/23) Hyperglycemia, unspecified (08/05/23) Bacteremia (08/05/23) Other specified abnormal findings of blood chemistry (08/05/23) Subjective Subjective No acute events overnight. Patient seen at bedside this morning. Patient had been seen by urology earlier this morning and was notified of the plan to take her for cystoscopy later in the morning for right ureteral stent placement. On my interview, patient was sitting up comfortably in bed, no acute distress. Shewas slightly anxious for the procedure but otherwise was feeling well. Denied any acute pain or discomfort. No other acute concerns this time. Objective Data Objective Data Vital Signs: Vital Signs Temp Pulse Resp BP Pulse Ox O2 Del Method O2 Flow Rate 99.4 F H 89 16 113/58 L 96 Room Air 2 08/09/23 12:12 08/09/23 12:15 08/09/23 12:15 08/09/23 12:15 08/09/23 12:15 08/09/23 12:15 08/07/23 07:52 FiO2 1.5 08/05/23 18:43 Oxygen Flow Rate (L/min) 2 Oxygen Delivery Method Room Air Weight: 46.4 kg Body Mass Index (BMI) 18.7 Intake & Output: Intake and Output for Last 24 Hours 08/07/23 08/08/23 08/09/23 23:59 23:59 23:59 Intake Total 1900 / 1900 900 / 900 50 / 50 Output Total 1200 / 1600 1150 / 1150 550 / 550 Balance 700 / 300 -250 / -250 -500 / -500 Medical Nutrition Assessment Dietitian: Malnutrition Criteria Met Start: 08/06/23 11:51 Freq: Status: Active Protocol: Document 08/06/23 11:51 AG (Rec: 08/06/23 11:51 [id number]) Nutrition Malnutrition Evidence of Malnutrition Exists Yes Malnutrition (severe): Chronic Evidenced By Suboptimal Energy Intake ( Severe),Weight Loss (Severe) Clinical Problem Chronic Disease or Condition Related Malnutrition Etiology severe, chronic malnutrition related to inadequate energy intake Signs/Symptoms as evidenced by unintentional 14% wt loss x 2 months, estimated PO intake meeting < 75% of estimated energy needs x 2 months Status Active Problem Recommendation Dietitian Recommendations/Changes will adjust diet to CHO controlled given evidence of malnutrition; will add 120mL glucerna 4x/day w/ medpass for additional nutrition if consumed Lab / Micro Data 08/07/23 05:44 08/08/23 09:05 Labs: Laboratory Results - last 24 hr 08/08/23 16:18: POC Glucose 325 H 08/08/23 16:52: POC Glucose 290 H 08/08/23 22:59: POC Glucose 270 H 08/09/23 08:16: POC Glucose 216 H 08/09/23 11:03: POC Glucose 236 H Micro: Microbiology 08/05/23 17:53 Blood Culture (Wb) - Anticubital Left Blood Culture - Final Escherichia coli 08/05/23 19:29 Urine Catheter - Catheter Urine Culture - Final Escherichia coli 08/05/23 18:02 Blood Culture (Wb) - Anticubital Right Blood Culture - Preliminary Gram negative yoseph 08/05/23 18:05 Mucosa - Nose SARS-CoV-2, Influenza & RSV (PCR) - Final Radiography Diagnostic Testing: Radiology Impression Echocardiogram 08/07/23 14:38 Interpretation Summary The estimated ejection fraction is 60-65 %. No evidence for diastolic dysfunction. Trivial mitral valve insufficiency. Ordering Physician: Baldev Gaxiola Performed By: Chalo Atkins RCS Abdomen/Pelvis CT 08/08/23 12:36 IMPRESSION: 5.0 mm calculi within the midportion of the right ureter causing mild degree of right hydronephrosis. Nonobstructive right intrarenal calculus. Sigmoid diverticulosis. Small bilateral pleural effusions with the bibasilar atelectasis and/or infiltration. Electronically Signed: Colt Martinez MD at 13:48 EST Reading Location ID and State: [address] [place] [address] , Service support , Physical Exam Const alert and no apparent distress Constitutional Narrative: Pleasant elderly female, thin appearing, sitting comfortably in bed, conversing normally, no acute distress. General Appearance: cooperative and comfortable HEENT normocephalic, head/scalp atraumatic, hearing grossly normal bilaterally, nasal mucous membranes and turbinates normal and moist oral mucous membranes Eyes PERRL, EOMs intact bilaterally and conjunctivae normal Neck full ROM, no lymphadenopathy and supple Lymph Lymphatic: no lymphadenopathy noted Chest inspection of chest normal Resp normal respiratory effort, normal air movement, no use of accessory muscles and clear to auscultation bilaterally Cardio regular rate, regular rhythm, no murmurs and peripheral pulses 2+ throughout GI normal to inspection, nondistended, normoactive bowel sounds, soft to palpation,non-tender and non-distended no CVA tenderness Bladder / Kidney Exam: No catheter in place and bladder normal to palpation Back/Spine normal ROM Extremity normal to inspection, full ROM and no pedal edema Skin no rashes or lesions noted Neuro no focal motor deficits and no sensory deficits noted Speech: speech normal Psych mental status grossly normal Assessment & Plan Assessment/Plan (1) Elevated troponin: (2) UTI (urinary tract infection): (3) Sepsis: (4) Hyperglycemia: (5) Gram-negative bacteremia: PLAN: Plan Patient is a 78-year-old female who presented to [facility] ED on 08/05/2023 with fever/chills, generalized weakness and reported hyperglycemia at home. 1. Sepsis without shock secondary to UTI; Gram-negative bacteremia; Right-sidedhydronephrosis with nephrolithiasis Presented with fever to 102.2F, tachycardia, elevated respiratory rate, leukocytosis, mild GWYN in setting of presumed UTI. UA showed positive nitrites,25 leukocyte esterase, 1+ bacteria. S/p 2 L of IV fluids on admission with improvement in vital signs. Urine culture and blood cultures +2/2 for E. coli. Renal/bladder ultrasound showed mild degree of right hydronephrosis, renal cyst with recommendation for CT scan for correlation. CT abdomen pelvis without contrast showed 5.0 mm calculi within midportion of right ureter causing mild degree of right hydronephrosis. ? Urology following. S/p cystoscopy with right ureteral stent placement on 08/09. No perioperative complications. Continue IV cefepime for now, will discuss with urology on antibiotic course length on discharge. 2. Type 2 diabetes mellitus with severe hyperglycemia concerning for HHS, improved ? Glucose 956 on admit. pH 7.39, bicarb 23, no anion gap, no evidence of DKA. A1c 12.4%. Home regimen of glimepiride 2 mg daily, metformin 750 mg daily. Continue Lantus 15 units at night, Humalog 10 units with meals plus sliding scale insulin while inpatient, adjust as needed. Patient has been resistant to starting insulin, may need to discharge patient on oral medications with close outpatient follow- up to discuss starting an insulin regimen. 3. Pseudohyponatremia, resolved ? Sodium 129 on admit, corrected sodium 143 in setting of hyperglycemia. Sodiumimproved with IV fluids and improvement in blood glucose. Resolved. 4. Elevated troponin ? Troponin 153 on admit, worsened to 1192 on 08/06 but rechecks after that were 1034 and 835. No EKG changes noted. No chest pain reported by patient. Suspect largely due to severe volume depletion from sepsis with hyperglycemia asnoted above. TTE 08/08 showed EF 60 to 65%, no evidence of diastolic dysfunction, no regional wall motion abnormalities noted, no significant valvular disease. No need for further workup at this time. 5. Mild debility ? PT/OT/case management following. Planning for either home with home health care versus home with outpatient physical therapy on discharge. Chronic medical conditions: ? Hypertension: Holding home losartan, likely okay to resume on discharge ? Hyperlipidemia: Continue home statin. ? Current smoker: Nicotine replacement therapy offered as needed. Encouraged cessation. DVT prophylaxis: Lovenox CODE STATUS: DNR CCA, DNI Expected disposition: Home, 1 to 2 days Total clinical time spent by myself addressing the patient's medical issues, reviewing all the data, and collaborating with patient's care team: 35 minutes. Charges/Coding Visit Charges Inpatient E&M: 83346 Subs Hosp L2 08/09/23 1341 <Electronically signed by Baldev Gaxiola DO> Cosigner Signature (if applicable): CC: ~ Signed [facility] Work Phone: 1(433) 443-787202-13-2024 Consult note Author Roshan Simon [facility] August 09, 2023 12:10pm Note Date/Time August 09, 2023 6:13am [facility] Medical Records Department [address] [place] [address] Consultation - Urology 08/09/23 0609 MR#: [id number] Acct: [id number] Name: MAYTE SWEET Rep #:[id number] : 1945 78 From: Roshan Simon MD PCP: MENDEZ Cash tus:ADM IN Location: [place] [address] Assessment & Plan Assessment/Plan (1) Sepsis: (2) Ureteral stone: HPI Consult Data Date of Consult: 08/09/23 HPI Narrative Reason for Consultation: kidney stone uti HPI Narrative: MAYTE SWEET, is a 78 F who presents to hospital with UTI and stone, sepsis but not in shock but dies have a large obstructiong ston in mid right ureter, add onurgently tiday for a cysto and right stent, house sup called, npo now and get consent [facility] Medical History (Updated 08/09/23 @ 06:[address] Roshan Simon MD) Anemia Bowel obstruction COPD (chronic obstructive pulmonary disease) Diabetes Encounter for screening for malignant neoplasm of lung in current smoker with 30pack year history or greater Hyperlipidemia Osteoporosis Smoker Tobacco use disorder, continuous Vision loss of left eye Vision loss of right eye Vitamin D deficiency Home Medications glimepiride 2 mg tablet 2 mg PO DAILY dm 09/13/19 [History Last Taken Unknown] simvastatin 40 mg tablet 40 mg PO QHS cholesterol 09/13/19 [History Last Taken Unknown] vit C 250 mg-vit E 90 mg-zinc 40 mg-copper 1 [id number] capsule (PreserVision AREDS-2) 1 tab PO BID 01/13/21 [History Last Taken Unknown] cholecalciferol (vitamin D3) 1,250 mcg (50,000 unit) capsule 1,250 mcg PO .MONTHLY supplement 08/05/23 [History Last Taken Unknown] losartan 25 mg tablet 25 mg PO DAILY bp 08/05/23 [History Last Taken Unknown] metformin 750 mg tablet,extended release 24 hr 750 mg PO DAILY dm 08/05/23 [History Last Taken Unknown] Allergy/AdvReac Type Severity Reaction Status Date / Time No Known Allergies Allergy Verified 08/05/23 17:58 Family History Father CAD (coronary artery disease) Myocardial infarction Osteoarthritis Brother Multiple myeloma older younger brother Brain aneurysm younger brother Surgical History (Updated 08/05/23 @ 22:50 by Barbara Lea RN) History of cholecystectomy History of hysterectomy History of intestinal surgery History of removal of ovarian cyst Social History Smoking Status: Current every day smoker tobacco type: cigarettes Tobacco: How many years used: 25 Electronic Cigarette Use: not used second hand exposure: Yes quit status: considering quitting counseling given: provider counseling Medical Records Data Medical Nutrition Assessment Dietitian: Malnutrition Criteria Met Start: 08/06/23 11:51 Freq: Status: Active Protocol: Document 08/06/23 11:51 AG (Rec: 08/06/23 11:51 AG [id number]) Nutrition Malnutrition Evidence of Malnutrition Exists Yes Malnutrition (severe): Chronic Evidenced By Suboptimal Energy Intake ( Severe),Weight Loss (Severe) Clinical Problem Chronic Disease or Condition Related Malnutrition Etiology severe, chronic malnutrition related to inadequate energy intake Signs/Symptoms as evidenced by unintentional 14% wt loss x 2 months, estimated PO intake meeting < 75% of estimated energy needs x 2 months Status Active Problem Recommendation Dietitian Recommendations/Changes will adjust diet to CHO controlled given evidence of malnutrition; will add 120mL glucerna 4x/day w/ medpass for additional nutrition if consumed Lab / Micro Data 08/07/23 05:44 08/08/23 09:05 Labs: Laboratory Results - last 24 hr 08/08/23 07:55: POC Glucose 191 H 08/08/23 09:05: Sodium 140, Potassium 3.3 L, Chloride 111 H, Carbon Dioxide 24.0, Anion Gap 5, BUN 12, Creatinine 0.74, Estim Creat Clear Calc 43.82, Est GFR (MDRD) Af Amer 98, Est GFR (MDRD) Non-Af 81, BUN/Creatinine Ratio 16.2, Glucose 128 H, Calcium 8.6 08/08/23 11:33: POC Glucose 171 H 08/08/23 16:18: POC Glucose 325 H 08/08/23 16:52: POC Glucose 290 H 08/08/23 22:59: POC Glucose 270 H Micro: Microbiology 08/05/23 17:53 Blood Culture (Wb) - Anticubital Left Blood Culture - Final Escherichia coli Imaging Radiology Impression Echocardiogram 08/07/23 14:38 Interpretation Summary The estimated ejection fraction is 60-65 %. No evidence for diastolic dysfunction. Trivial mitral valve insufficiency. Ordering Physician: Baldev Gaxiola Performed By: Chalo Atkins RCS Renal Ultrasound 08/08/23 06:00 IMPRESSION: Mild degree of right hydronephrosis. 1.8 cm x 1.5 cm x 1.9 cm complex cyst in the upper lateral aspect of the right kidney as described. Correlation with a CT scan is recommended. Left renal cyst. There are 2 tiny nonobstructive left intrarenal calculi. Electronically Signed: Colt Martinez MD at 12:01 EST , Abdomen/Pelvis CT 08/08/23 12:36 IMPRESSION: 5.0 mm calculi within the midportion of the right ureter causing mild degree of right hydronephrosis. Nonobstructive right intrarenal calculus. Sigmoid diverticulosis. Small bilateral pleural effusions with the bibasilar atelectasis and/or infiltration. Electronically Signed: Colt Martinez MD at 13:48 EST , 08/09/23 0613 <Electronically signed by Roshan Simon MD> Cosigner Signature (if applicable): CC: MENDEZ Guallpa; Dr. Roshan Simon MD; Dr. Art Alcaraz MD~ Signed ADDENDUM by Dr. Roshan Simon MD on 08/09/23 at 1210 Addendum I reviewed her CAT scan she also has a very unusual looking collection next to her right kidney stone can repeat a CT scan of the kidneys with contrast to evaluate this 08/09/23 1210<Electronically signed by Roshan Simon MD> Cosigner Signature (if applicable): cc: MENDEZ Guallpa; Dr. Roshan Simon MD; Dr. Art Alcaraz MD ~* Signed [facility] Work Phone: 1(637) 231-649902-13-2024 Procedure [facility] 08-08-2023 Progress note Author Baldev Gaxiola [facility] August 08, 2023 5:16pm Note Date/Time August 08, 2023 2:24pm [facility] Medical Records Department [address] [place] [address] Progress Note - Hospitalist 08/08/23 1424 MR#: [id number] Acct: [id number] Name: MAYTE SWEET Inder Rep #:[id number] : 1945 78 From: Baldev aquino DO PCP: MENDEZ Cash tus:ADM IN Location: [place] [address] Reason for Visit Reason for Visit: Diagnoses Sepsis, unspecified organism (08/05/23) Urinary tract infection, site not specified (08/05/23) Hyperglycemia, unspecified (08/05/23) Bacteremia (08/05/23) Other specified abnormal findings of blood chemistry (08/05/23) Subjective Subjective No acute events overnight. Patient seen at bedside this afternoon, as she was having her echocardiogram done this morning. Patient was sitting comfortably inbedside chair, conversing normally, no acute distress. Patient denied any fevers or chills today. She denied any right-sided back pain or discomfort. Denied any pain with urination. She felt close to her baseline and was hoping to go home soon. No other acute concerns this time. Objective Data Objective Data Vital Signs: Vital Signs Temp Pulse Resp BP Pulse Ox O2 Del Method O2 Flow Rate 98.6 F 86 12 114/72 94 Room Air 2 08/08/23 09:30 08/08/23 09:30 08/08/23 09:30 08/08/23 09:30 08/08/23 09:30 08/08/23 09:30 08/07/23 07:52 FiO2 1.5 08/05/23 18:43 Oxygen Flow Rate (L/min) 2 Oxygen Delivery Method Room Air Weight: 46.4 kg Body Mass Index (BMI) 18.7 Intake & Output: Intake and Output for Last 24 Hours 08/06/23 08/07/23 08/08/23 23:59 23:59 23:59 Intake Total 4140.00 / 4140.00 1900 / 1900 50 / 50 Output Total 1650 / 2150 1200 / 1600 750 / 750 Balance 2490.00 / 1990.00 700 / 300 -700 / -700 Medical Nutrition Assessment Dietitian: Malnutrition Criteria Met Start: 08/06/23 11:51 Freq: Status: Active Protocol: Document 08/06/23 11:51 AG (Rec: 08/06/23 11:51 AG [id number]) Nutrition Malnutrition Evidence of Malnutrition Exists Yes Malnutrition (severe): Chronic Evidenced By Suboptimal Energy Intake ( Severe),Weight Loss (Severe) Clinical Problem Chronic Disease or Condition Related Malnutrition Etiology severe, chronic malnutrition related to inadequate energy intake Signs/Symptoms as evidenced by unintentional 14% wt loss x 2 months, estimated PO intake meeting < 75% of estimated energy needs x 2 months Status Active Problem Recommendation Dietitian Recommendations/Changes will adjust diet to CHO controlled given evidence of malnutrition; will add 120mL glucerna 4x/day w/ medpass for additional nutrition if consumed Lab / Micro Data 08/07/23 05:44 08/08/23 09:05 Labs: Laboratory Results - last 24 hr 08/07/23 05:44: Hemoglobin A1c 12.4 H 08/07/23 16:47: POC Glucose 432 H 08/07/23 22:12: POC Glucose 295 H 08/08/23 07:55: POC Glucose 191 H 08/08/23 09:05: Sodium 140, Potassium 3.3 L, Chloride 111 H, Carbon Dioxide 24.0, Anion Gap 5, BUN 12, Creatinine 0.74, Estim Creat Clear Calc 43.82, Est GFR (MDRD) Af Amer 98, Est GFR (MDRD) Non-Af 81, BUN/Creatinine Ratio 16.2, Glucose 128 H, Calcium 8.6 08/08/23 11:33: POC Glucose 171 H Micro: Microbiology 08/05/23 17:53 Blood Culture (Wb) - Anticubital Left Blood Culture - Final Escherichia coli 08/05/23 19:29 Urine Catheter - Catheter Urine Culture - Final Escherichia coli 08/05/23 18:02 Blood Culture (Wb) - Anticubital Right Blood Culture - Preliminary Gram negative yoseph 08/05/23 18:05 Mucosa - Nose SARS-CoV-2, Influenza & RSV (PCR) - Final Radiography Diagnostic Testing: Radiology Impression Echocardiogram 08/07/23 14:38 Interpretation Summary The estimated ejection fraction is 60-65 %. No evidence for diastolic dysfunction. Trivial mitral valve insufficiency. Ordering Physician: Baldev Gaxiola Performed By: Brodwolf, Chalo, RCS Renal Ultrasound 08/08/23 06:00 IMPRESSION: Mild degree of right hydronephrosis. 1.8 cm x 1.5 cm x 1.9 cm complex cyst in the upper lateral aspect of the right kidney as described. Correlation with a CT scan is recommended. Left renal cyst. There are 2 tiny nonobstructive left intrarenal calculi. Electronically Signed: Colt Martinez MD at 12:01 EST , Abdomen/Pelvis CT 08/08/23 12:36 IMPRESSION: 5.0 mm calculi within the midportion of the right ureter causing mild degree of right hydronephrosis. Nonobstructive right intrarenal calculus. Sigmoid diverticulosis. Small bilateral pleural effusions with the bibasilar atelectasis and/or infiltration. Electronically Signed: Colt Martinez MD at 13:48 EST , Physical Exam Const alert and no apparent distress Constitutional Narrative: Pleasant elderly female, thin appearing, sitting comfortably in bedside chair, conversing normally, no acute distress. General Appearance: cooperative and comfortable HEENT normocephalic, head/scalp atraumatic, hearing grossly normal bilaterally, nasal mucous membranes and turbinates normal and moist oral mucous membranes Eyes PERRL, EOMs intact bilaterally and conjunctivae normal Neck full ROM, no lymphadenopathy and supple Lymph Lymphatic: no lymphadenopathy noted Chest inspection of chest normal Resp normal respiratory effort, normal air movement, no use of accessory muscles and clear to auscultation bilaterally Cardio regular rate, regular rhythm, no murmurs and peripheral pulses 2+ throughout GI normal to inspection, nondistended, normoactive bowel sounds, soft to palpation,non-tender and non-distended no CVA tenderness Bladder / Kidney Exam: No catheter in place and bladder normal to palpation Back/Spine normal ROM Extremity normal to inspection, full ROM and no pedal edema Skin no rashes or lesions noted Neuro no focal motor deficits and no sensory deficits noted Speech: speech normal Psych mental status grossly normal Assessment & Plan Assessment/Plan (1) Elevated troponin: (2) UTI (urinary tract infection): (3) Sepsis: (4) Hyperglycemia: (5) Gram-negative bacteremia: PLAN: Plan Patient is a 78-year-old female who presented to [facility] ED on 08/05/2023 with fever/chills, generalized weakness and reported hyperglycemia at home. 1. Sepsis without shock secondary to UTI; Gram-negative bacteremia; Mild right- sided hydronephrosis with nephrolithiasis Presented with fever to 102.2F, tachycardia, elevated respiratory rate, leukocytosis, mild GWYN in setting of presumed UTI. UA showed positive nitrites,25 leukocyte esterase, 1+ bacteria. S/p 2 L of IV fluids on admission with improvement in vital signs. Urine culture and blood cultures +2/2 for E. coli. Renal/bladder ultrasound showed mild degree of right hydronephrosis, renal cyst with recommendation for CT scan for correlation. CT abdomen pelvis without contrast showed 5.0 mm calculi within midportion of right ureter causing mild degree of right hydronephrosis. ? Urology consulted. Continue IV cefepime for now. Continue to encourage p.o. intake. 2. Type 2 diabetes mellitus with severe hyperglycemia concerning for [facility], improving ? Glucose 956 on admit. pH 7.39, bicarb 23, no anion gap, no evidence of DKA. A1c pending. Home regimen of glimepiride 2 mg daily, metformin 750 mg daily. Continue Lantus 15 units at night, Humalog 10 units with meals plus sliding scale insulin, adjust as needed. 3. Pseudohyponatremia, resolved ? Sodium 129 on admit, corrected sodium 143 in setting of hyperglycemia. Sodiumimproved with IV fluids and improvement in blood glucose. Resolved. 4. Elevated troponin ? Troponin 153 on admit, worsened to 1192 on 08/06 but rechecks after that were 1034 and 835. No EKG changes noted. No chest pain reported by patient. Suspect largely due to severe volume depletion from sepsis with hyperglycemia asnoted above. TTE 08/08 showed EF 60 to 65%, no evidence of diastolic dysfunction, no regional wall motion abnormalities noted, no significant valvular disease. No need for further workup at this time. 5. Mild debility ? PT/OT/case management following. Planning for either home with home health care versus home with outpatient physical therapy on discharge. Chronic medical conditions: ? Hypertension: Holding home losartan. ? Hyperlipidemia: Continue home statin. ? Current smoker: Nicotine replacement therapy offered as needed. Encouraged cessation. DVT prophylaxis: Lovenox CODE STATUS: DNR CCA, DNI Expected disposition: Home, 1 to 2 days Total clinical time spent by myself addressing the patient's medical issues, reviewing all the data, and collaborating with patient's care team: 35 minutes. Charges/Coding Visit Charges Inpatient E&M: 58519 Subs Hosp L2 08/08/23 1716 <Electronically signed by Baldev Gaxiola DO> Cosigner Signature (if applicable): CC: ~ Signed [facility] Work Phone: 1(327) 232-629502-11-2024 Progress note Author Baldev [facility] August 07, 2023 2:48pm Note Date/Time August 07, 2023 2:44pm [facility] Medical Records Department [address] [place] [address] Progress Note - Hospitalist 08/07/23 1441 MR#: [id number] Acct: [id number] Name: MAYTE SWEET Rep #:[id number] : 1945 78 From: Baldev aquino DO PCP: MENDEZ Cash tus:ADM IN Location: [place] [address] Reason for Visit Reason for Visit: Diagnoses Hyperglycemia, unspecified (08/05/23) Subjective Subjective Overnight, patient developed a fever of 103.0F and had significant tachycardia with noted generalized discomfort. See Dr. Alcaraz's note for further details. Patient seen at bedside this morning, family members present. Patient appeared much improved this morning, was sitting comfortably in bedside chair, conversingnormally and in no acute distress. She actually appeared similar this morning to how she looked yesterday morning. Stated she feels much improved compared toovernight. She denies any fevers or chills. Denies any acute pain or discomfort at this time. No other acute concerns. Objective Data Objective Data Vital Signs: Vital Signs Temp Pulse Resp BP Pulse Ox O2 Del Method O2 Flow Rate 98.6 F 91 18 117/50 L 94 Room Air 2 08/07/23 08:37 08/07/23 08:37 08/07/23 08:37 08/07/23 08:37 08/07/23 08:37 08/07/23 13:55 08/07/23 07:52 FiO2 1.5 08/05/23 18:43 Oxygen Flow Rate (L/min) 2 Oxygen Delivery Method Room Air Weight: 46.4 kg Body Mass Index (BMI) 18.7 Intake & Output: Intake and Output for Last 24 Hours 08/05/23 08/06/23 08/07/23 23:59 23:59 23:59 Intake Total 2250 / 2280 4140.00 / 4140.00 1100 / 1100 Output Total 1650 / 2150 1200 / 1200 Balance 2250 / 1780 2490.00 / 1990.00 -100 / -100 Medical Nutrition Assessment Dietitian: Malnutrition Criteria Met Start: 08/06/23 11:51 Freq: Status: Active Protocol: Document 08/06/23 11:51 AG (Rec: 08/06/23 11:51 [id number]) Nutrition Malnutrition Evidence of Malnutrition Exists Yes Malnutrition (severe): Chronic Evidenced By Suboptimal Energy Intake ( Severe),Weight Loss (Severe) Clinical Problem Chronic Disease or Condition Related Malnutrition Etiology severe, chronic malnutrition related to inadequate energy intake Signs/Symptoms as evidenced by unintentional 14% wt loss x 2 months, estimated PO intake meeting < 75% of estimated energy needs x 2 months Status Active Problem Recommendation Dietitian Recommendations/Changes will adjust diet to CHO controlled given evidence of malnutrition; will add 120mL glucerna 4x/day w/ medpass for additional nutrition if consumed Lab / Micro Data 08/07/23 05:44 08/07/23 05:44 Labs: Laboratory Results - last 24 hr 08/06/23 15:04: POC Glucose 442 H 08/06/23 17:39: POC Glucose 335 H 08/06/23 22:38: POC Glucose 91 08/07/23 02:27: POC Glucose 118 H 08/07/23 05:44: WBC 19.0 H, RBC 3.34 L, Hgb 10.3 L, Hct 29.8 L, MCV 89.2, MCH 30.8, MCHC 34.6 D, RDW Std Deviation 42.4, RDW Coeff of Kuldip 13.0, Plt Count 247, MPV 9.6, Sodium 140, Potassium 3.0 L, Chloride 112 H, Carbon Dioxide 22.0, Anion Gap 6, BUN 14, Creatinine 0.60, Estim Creat Clear Calc 43.82, Est GFR (MDRD) Af Amer 124, Est GFR (MDRD) Non-Af 102, BUN/Creatinine Ratio 23.1 H, Glucose 224 H, Calcium 7.9 L 08/07/23 08:26: POC Glucose 256 H 08/07/23 11:34: POC Glucose 416 H Micro: Microbiology 08/05/23 19:29 Urine Catheter - Catheter Urine Culture - Final Escherichia coli 08/05/23 18:02 Blood Culture (Wb) - Anticubital Right Blood Culture - Preliminary Gram negative yoseph 08/05/23 17:53 Blood Culture (Wb) - Anticubital Left Blood Culture - Preliminary Gram negative yoseph 08/05/23 18:05 Mucosa - Nose SARS-CoV-2, Influenza & RSV (PCR) - Final Physical Exam Const alert and no apparent distress Constitutional Narrative: Pleasant elderly female, thin appearing, sitting comfortably in bedside chair, conversing normally, no acute distress. General Appearance: cooperative and comfortable HEENT normocephalic, head/scalp atraumatic, hearing grossly normal bilaterally, nasal mucous membranes and turbinates normal and moist oral mucous membranes Eyes PERRL, EOMs intact bilaterally and conjunctivae normal Neck full ROM, no lymphadenopathy and supple Lymph Lymphatic: no lymphadenopathy noted Chest inspection of chest normal Resp normal respiratory effort, normal air movement, no use of accessory muscles and clear to auscultation bilaterally Cardio regular rate, regular rhythm, no murmurs and peripheral pulses 2+ throughout GI normal to inspection, nondistended, normoactive bowel sounds, soft to palpation,non-tender and non-distended Back/Spine normal ROM Extremity normal to inspection, full ROM and no pedal edema Skin no rashes or lesions noted Neuro no focal motor deficits and no sensory deficits noted Speech: speech normal Psych mental status grossly normal Assessment & Plan Assessment/Plan (1) Elevated troponin: (2) UTI (urinary tract infection): (3) Sepsis: (4) Hyperglycemia: (5) Gram-negative bacteremia: PLAN: Plan Patient is a 78-year-old female who presented to [facility] ED on 08/05/2023 with fever/chills, generalized weakness and reported hyperglycemia at home. 1. Sepsis without shock secondary to UTI; Gram-negative bacteremia Presented with fever to 102.2F, tachycardia, elevated respiratory rate, leukocytosis, mild GWYN in setting of presumed UTI. UA showed positive nitrites,25 leukocyte esterase, 1+ bacteria. S/p 2 L of IV fluids on admission with improvement in vital signs. Urine culture and blood cultures +2/2 for E. coli, sensitivities pending. ? Continue IV cefepime for now, follow-up sensitivities. Continue to encourage p.o. intake. Renal/bladder ultrasound ordered to assess for pyelonephritis. 2. Type 2 diabetes mellitus with severe hyperglycemia concerning for [facility], improving ? Glucose 956 on admit. pH 7.39, bicarb 23, no anion gap, no evidence of DKA. A1c pending. Home regimen of glimepiride 2 mg daily, metformin 750 mg daily. Continue Lantus 15 units at night, Humalog 10 units with meals plus sliding scale insulin, adjust as needed. 3. Pseudohyponatremia, resolved ? Sodium 129 on admit, corrected sodium 143 in setting of hyperglycemia. Sodiumimproved with IV fluids and improvement in blood glucose. Resolved. 4. Elevated troponin ? Troponin 153 on admit, worsened to 1192 on 08/06 but rechecks after that were 1034 and 835. No EKG changes noted. No chest pain reported by patient. Suspect largely due to severe volume depletion from sepsis with hyperglycemia asnoted above. Echo pending. 5. Acute debility ? PT/OT/case management following. Planning for home with home health care. Chronic medical conditions: ? Hypertension: Holding home losartan. ? Hyperlipidemia: Continue home statin. ? Current smoker: Nicotine replacement therapy offered as needed. Encouraged cessation. DVT prophylaxis: Lovenox CODE STATUS: DNR CCA, DNI Expected disposition: Home with home health care versus SNF, 2 to 3 days Total clinical time spent by myself addressing the patient's medical issues, reviewing all the data, and collaborating with patient's care team: 35 minutes. Charges/Coding Visit Charges Inpatient E&M: 91127 Subs Hosp L2 08/07/23 0983 <Electronically signed by Baldev Gaxiola DO> Cosigner Signature (if applicable): CC: ~ Signed [facility] Work Phone: 1(554) 796-697802-11-2024 Progress note Author Baldev Gaxiola [facility] August 07, 2023 2:41pm Note Date/Time August 06, 2023 12:23pm [facility] Medical Records Department [address] [place] [address] Progress Note - Hospitalist 08/06/23 1223 MR#: [id number] Acct: [id number] Name: MAYTE SWEET Rep #:[id number] : 1945 78 From: Baldev White cruz DO PCP: Adelina Guallpa, MENDEZ Payne tus:ADM IN Location: [place] [address] Reason for Visit Reason for Visit: Diagnoses Hyperglycemia, unspecified (08/05/23) Subjective Subjective Patient admitted yesterday evening for fever/chills, generalized weakness and worsening hyperglycemia at home. Was found to have UTI in the ED as well as hyperglycemia to the 900s, was suspected that UTI was driving factor for her symptoms. Patient seen at bedside this morning. Patient was sitting up comfortably bedside chair, conversing normally, no acute distress. States that she feels weaker than her baseline but otherwise much improved from yesterday after receiving IV fluids. Denies any pain or burning with urination this morning. Denies any pain or discomfort. No other acute concerns this time. Objective Data Objective Data Vital Signs: Vital Signs Temp Pulse Resp BP Pulse Ox O2 Del Method O2 Flow Rate 98.1 F 90 18 130/57 H 96 Room Air 2 08/06/23 09:07 08/06/23 09:07 08/06/23 09:07 08/06/23 09:07 08/06/23 09:07 08/06/23 09:07 08/05/23 22:35 FiO2 1.5 08/05/23 18:43 Oxygen Flow Rate (L/min) 2 Oxygen Delivery Method Room Air Weight: 46.4 kg Body Mass Index (BMI) 18.7 Intake & Output: Intake and Output for Last 24 Hours 08/04/23 08/05/23 08/06/23 23:59 23:59 23:59 Intake Total 2250 / 2280 2890.00 / 2890.00 Output Total 900 / 900 Balance 2250 / 1780 Medical Nutrition Assessment Dietitian: Malnutrition Criteria Met Start: 08/06/23 11:51 Freq: Status: Active Protocol: Document 08/06/23 11:51 AG (Rec: 08/06/23 11:51 AG [id number]) Nutrition Malnutrition Evidence of Malnutrition Exists Yes Malnutrition (severe): Chronic Evidenced By Suboptimal Energy Intake ( Severe),Weight Loss (Severe) Clinical Problem Chronic Disease or Condition Related Malnutrition Etiology severe, chronic malnutrition related to inadequate energy intake Signs/Symptoms as evidenced by unintentional 14% wt loss x 2 months, estimated PO intake meeting < 75% of estimated energy needs x 2 months Status Active Problem Recommendation Dietitian Recommendations/Changes will adjust diet to CHO controlled given evidence of malnutrition; will add 120mL glucerna 4x/day w/ medpass for additional nutrition if consumed Lab / Micro Data 08/07/23 05:44 08/07/23 05:44 Labs: Laboratory Results - last 24 hr 08/05/23 17:53: WBC 21.3 H, RBC 4.38, Hgb 12.9, Hct 40.2, MCV 91.8, MCH 29.5, MCHC 32.1, RDW Std Deviation 43.9, RDW Coeff of Kuldip 13.1, Plt Count 402, MPV 10.0, Immature Gran % (Auto) 0.800, Neut % (Auto) 93.6 H, Lymph % (Auto) 3.1 L, [place] % (Auto) 2.3, Eos % (Auto) 0.0, Baso % (Auto) 0.2, Absolute Neuts (auto) 20.0 H, Absolute Lymphs (auto) 0.66 L, Nucleated RBC % 0, Sodium 129 L, Potassium 4.6, Chloride 94 L, Carbon Dioxide 23.0, Anion Gap 12, BUN 25 H, Creatinine 1.56 H, Estim Creat Clear Calc 22.47, Est GFR (MDRD) Af Amer 42 L, Est GFR (MDRD) Non-Af 34 L, BUN/Creatinine Ratio 16.0, Glucose 956 H*, Calcium 9.9, Phosphorus 2.6, Magnesium 1.8, Total Bilirubin 0.60, Direct Bilirubin 0.23,AST 11 L, ALT 23, Alkaline Phosphatase 105, Troponin I High Sens 153 H*, Total Protein 8.2, Albumin 3.2, Globulin 5.0 H 02/09/24 19:29: Urine Color Yellow, Urine Clarity Clear, Urine pH 6.5, Ur Specific Jay 1.010, Urine Protein 30 H, Urine Glucose (UA) 1000 H, Urine Ketones 5 H, Urine Occult Blood 150 H, Urine Nitrite Positive H, Urine BilirubinNegative, Urine Urobilinogen Normal, Ur Leukocyte Esterase 25 H, Urine RBC 0-5 SEEN, Urine WBC 0 SEEN, Ur Squamous Epith Cells 0 SEEN, Urine Bacteria 1+, UrineMucus 0 SEEN 08/05/23 19:30: Acetone Level MODERATE H 08/05/23 20:11: POC Glucose > 500 H* 08/05/23 23:06: POC Glucose > 500 H* 08/05/23 23:30: Sodium 136, Potassium 4.2, Chloride 107, Carbon Dioxide 20.0 L, Anion Gap 9, BUN 23 H, Creatinine 1.07 H, Estim Creat Clear Calc 32.76, Est GFR (MDRD) Af Amer 64, Est GFR (MDRD) Non-Af 53 L, BUN/Creatinine Ratio 21.5 H, Glucose 700 H*, Calcium 8.6 08/06/23 02:34: WBC 23.0 H, RBC 3.35 L, Hgb 10.1 L, Hct 30.8 L, MCV 91.9, MCH 30.1, MCHC 32.8, RDW Std Deviation 42.7, RDW Coeff of Kuldip 12.8, Plt Count 243, MPV 9.3, Immature Gran % (Auto) 0.900, Neut % (Auto) 85.7 H, Lymph % (Auto) 9.0 L, [place] % (Auto) 4.1, Eos % (Auto) 0.0, Baso % (Auto) 0.3, Absolute Neuts (auto)19.7 H, Absolute Lymphs (auto) 2.07, Nucleated RBC % 0, Sodium 140, Potassium 4.3, Chloride 111 H, Carbon Dioxide 20.0 L, Anion Gap 9, BUN 23 H, Creatinine 0.95, Estim Creat Clear Calc 36.90, Est GFR (MDRD) Af Amer 74, Est GFR (MDRD) Non-Af 61, BUN/Creatinine Ratio 24.2 H, Glucose 590 H*, Calcium 7.9 L, Troponin I High Sens 1192 H* 08/06/23 04:20: Troponin I High Sens 1034 H* 08/06/23 08:45: Troponin I High Sens 835 H* 08/06/23 08:57: POC Glucose 378 H Micro: Microbiology 08/05/23 19:29 Urine Catheter - Catheter Urine Culture - Preliminary Gram negative yoseph 08/05/23 17:53 Blood Culture (Wb) - Anticubital Left Blood Culture - Preliminary 08/05/23 18:02 Blood Culture (Wb) - Anticubital Right Blood Culture - Preliminary 08/05/23 18:05 Mucosa - Nose SARS-CoV-2, Influenza & RSV (PCR) - Final ABG Data ABG results: ABG 08/05/23 19:11 Specimen Type DEDRICK Sample Site Not entered O2 % 2.0 VBG pH 7.39 VBG pO2 56 H VBG HCO3 23 VBG Total CO2 24 VBG O2 Sat (Calc) 88 H VBG Base Excess -2 L POC Mix VBG pCO2 Pt Tmp 38.1 L O2 Delivery Device Cannula Radiography Diagnostic Testing: Radiology Impression Chest X-Ray 08/05/23 18:24 IMPRESSION: There are findings consistent with COPD. There is no evidence of acute chest disease. Electronically Signed: Cb Munoz MD at 18:48 EST , Physical Exam Const alert and no apparent distress Constitutional Narrative: Pleasant elderly female, thin appearing, sitting comfortably in bedside chair, conversing normally, no acute distress. General Appearance: cooperative and comfortable HEENT normocephalic, head/scalp atraumatic, hearing grossly normal bilaterally, nasal mucous membranes and turbinates normal and moist oral mucous membranes Eyes PERRL, EOMs intact bilaterally and conjunctivae normal Neck full ROM, no lymphadenopathy and supple Lymph Lymphatic: no lymphadenopathy noted Chest inspection of chest normal Resp normal respiratory effort, normal air movement, no use of accessory muscles and clear to auscultation bilaterally Cardio regular rate, regular rhythm, no murmurs and peripheral pulses 2+ throughout GI normal to inspection, nondistended, normoactive bowel sounds, soft to palpation,non-tender and non-distended Back/Spine normal ROM Extremity normal to inspection, full ROM and no pedal edema Skin no rashes or lesions noted Neuro no focal motor deficits and no sensory deficits noted Speech: speech normal Psych mental status grossly normal Assessment & Plan Assessment/Plan (1) Elevated troponin: (2) UTI (urinary tract infection): (3) Sepsis: (4) Hyperglycemia: PLAN: Plan Patient is a 78-year-old female who presented to [facility] ED on 08/05/2023 with fever/chills, generalized weakness and reported hyperglycemia at home. 1. Sepsis without shock secondary to UTI, improving Presented with fever to 102.2F, tachycardia, elevated respiratory rate, leukocytosis, mild GWYN in setting of presumed UTI. UA showed positive nitrites,25 leukocyte esterase, 1+ bacteria. Urine culture pending. S/p 2 L of IV fluids on admission with improvement in vital signs. ? Continue IV ceftriaxone for now. Urine culture and blood cultures pending. Trend CBC. Encouraging p.o. intake. 2. Type 2 diabetes mellitus with severe hyperglycemia concerning for [facility], improving ? Glucose 956 on admit. pH 7.39, bicarb 23, no anion gap, no evidence of DKA. A1c pending. Home regimen of glimepiride 2 mg daily, metformin 750 mg daily. Started on Lantus 15 units at night with sliding-scale insulin with meals, will continue this for now and adjust as needed. 3. Pseudohyponatremia, resolved ? Sodium 129 on admit, corrected sodium 143 in setting of hyperglycemia. Sodiumimproved with IV fluids and improvement in blood glucose. Resolved. 4. Elevated troponin ? Troponin 153 on admit, worsened to 1192 on 08/06 but rechecks after that were 1034 and 835. No EKG changes noted. No chest pain reported by patient. Suspect largely due to severe volume depletion from sepsis with hyperglycemia asnoted above. Will check echo to ensure no cardiac etiology. 5. Acute debility ? PT/OT/case management following. Chronic medical conditions: ? Hypertension: Holding home losartan. ? Hyperlipidemia: Continue home statin. ? Current smoker: Nicotine replacement therapy offered as needed. Encouraged cessation. DVT prophylaxis: Lovenox CODE STATUS: DNR CCA, DNI Expected disposition: Home with home health care versus SNF, 2 to 3 days Total clinical time spent by myself addressing the patient's medical issues, reviewing all the data, and collaborating with patient's care team: 35 minutes. Charges/Coding Visit Charges Inpatient E&M: 15737 Subs Hosp L2 08/07/23 1441 <Electronically signed by Baldev Gaxiola DO> Cosigner Signature (if applicable): CC: ~ Signed [facility] Work Phone: [phone] 301-795502-11-2024 Progress note Author Art Alcaraz [facility] August 07, 2023 3:26am Note Date/Time August 07, 2023 3:24am [facility] Medical Records Department [address] [place] [address] Progress Note - Hospitalist 08/07/23323 MR#: [id number] Acct: [id number] Name: MAYTE SWEET Rep #:[id number] : 1945 78 From: Art Reyes PCP: MENDEZ Cash tus:ADM IN Location: [place] [address] Hospitalist Note Patient was tachycardic, once heart rate 150s and blood pressure also 180s but VBA error as second blood pressure came up 157/89 heart rate in 128/min. Patient also febrile temperature 100.3. Urine and blood culture growing gram-negative yoseph and patient on IV ceftriaxone. I suspect patient might have Pseudomonas or other gram-negative bacteria not sensitive to ceftriaxone therefore IV antibiotic changed to cefepime 1 g every 8 hourly IV fluid 500 Normal Saline bolus. Metoprolol 5 mg IV every 6 hours as needed ordered for heart rate more than 130/m after hypovolemia corrected. 08/07/23325 <Electronically signed by Art Alcaraz MD> Cosigner Signature (if applicable): CC: ~ Signed [facility] Work Phone: [phone] 427-217102-10-2024 Discharge summary Author Virginia Gu [facility] August 05, 2023 11:51pm Note Date/Time August 05, 2023 6 :05pm [facility] Medical Records Department [address] [place] [address] Emergency Department Summary 08/05/23 MR#: [id number] Acct: [id number] Name: MAYTE SWEET Rep #:[id number] : 1945 78 From: Virginia Gu MD PCP: Adelina Guallpa, MENDEZ Payne tus:ADM IN Location: [place] [address] HPI History of Present Illness Chief Complaint: Hyperglycemia Informant: patient Narrative Narrative: Patient present secondary to elevated blood sugar. She states she was diagnosedwith COVID a couple weeks ago but thought she was better. She is still not feltwell and has not been recently taking her diabetes medications. She states she is eating some and trying to drink a lot. Her blood sugars were elevated today so EMS was called. states that she seemed to be appropriate earlier in the day but was more confused this evening. Blood sugars were reportedly reading greater than 600. On arrival to the emergency room patient has a temperature of 102.2. She was unaware that she had a fever. She denies cough or congestion. She denies urinary symptoms other than urinary frequency with her hyperglycemia. [facility] Medical History Bowel obstruction COPD (chronic obstructive pulmonary disease) Diabetes Encounter for screening for malignant neoplasm of lung in current smoker with 30pack year history or greater Hyperlipidemia Tobacco use disorder, continuous Vitamin D deficiency Home Medications glimepiride 2 mg tablet 2 mg PO DAILY 09/13/19 [History Last Taken Unknown] simvastatin 40 mg tablet 40 mg PO DAILY 09/13/19 [History Last Taken Unknown] vit C 250 mg-vit E 90 mg-zinc 40 mg-copper 1 pf-jtyyix-jojlpo capsule (PreserVision AREDS-2) 1 tab PO BID 01/13/21 [History Last Taken Unknown] cholecalciferol (vitamin D3) 1,250 mcg (50,000 unit) capsule 1,250 mcg PO .MONTHLY 08/05/23 [History Last Taken Unknown] losartan 25 mg tablet 25 mg PO DAILY 08/05/23 [History Last Taken Unknown] metformin 750 mg tablet,extended release 24 hr 750 mg PO DAILY 08/05/23 [History Last Taken Unknown] Allergy/AdvReac Type Severity Reaction Status Date / Time No Known Allergies Allergy Verified 08/05/23 17:58 Family History Father CAD (coronary artery disease) Myocardial infarction Osteoarthritis Brother Multiple myeloma older younger brother Brain aneurysm younger brother Surgical History History of hysterectomy History of intestinal surgery History of removal of ovarian cyst Social History Smoking Status: Current every day smoker tobacco type: cigarettes Tobacco: How many years used: 25 Electronic Cigarette Use: not used second hand exposure: Yes quit status: considering quitting counseling given: provider counseling ROS ROS ED Constitutional Constitutional ED: Reports fever(s) Eyes Eyes: Denies change in vision ENT ENT ED: Denies rhinorrhea or sore throat Cardiovascular Cardiovascular: Denies chest pain or palpitations Respiratory/Chest Respiratory/Chest: Denies cough or dyspnea Gastrointestinal Gastrointestinal: Denies abdominal pain, diarrhea or vomiting Genitourinary Genitourinary ED: Reports urinary frequency Musculoskeletal Musculoskeletal: Denies arthralgias Neurologic Neurologic: Reports weakness Psychiatric Psychiatric: Denies anxiety or depression Allergic/Immunologic Allergic/Immunologic ED: Denies mouth swelling or tongue swelling EXAM Physical Exam Const Vital Signs: 08/05/23 17:50 08/05/23 17:54 08/05/23 17:56 Temperature 102.2 F H 102.2 F H Temperature Source Oral Oral Pulse Rate 125 H 124 H Respiratory Rate 34 H 24 H Respiratory Effort Normal Non-Labored Respiratory Pattern Normal Blood Pressure 136/60 H 145/62 H Blood Pressure Mean 85 89 Pulse Ox 94 94 Oxygen Delivery Method Room Air Room Air Oxygen Flow Rate (L/min) Fraction of Inspired Oxygen (FIO2) 08/05/23 18:43 08/05/23 18:59 08/05/23 19:00 Temperature 102 F H 102 F H Temperature Source Temporal Temporal Pulse Rate 117 H 99 101 H Respiratory Rate 22 H 21 H 23 H Respiratory Effort Respiratory Pattern Blood Pressure 114/47 L 108/45 L 113/54 L Blood Pressure Mean 69 66 73 Pulse Ox 97 95 96 Oxygen Delivery Method Nasal Cannula Nasal Cannula Room Air Oxygen Flow Rate (L/min) 1.5 Fraction of Inspired Oxygen (FIO2) 1.5 Positive well nourished and well developed General Appearance ED: well developed HEENT Reports dry mucous membranes Mouth ED: Yes dry mucous membranes Mouth: dry mucous membranes Eyes EOMs intact bilaterally Chest Wall inspection of chest normal and palpation of chest normal Resp Resp Narrative: Tachypnea. Lung sounds are clear. Cardio Rate: tachycardic GI GI Narrative: Abdomen soft and nontender. Hypoactive bowel sounds. Narrative: Perineum with inflammation and inflamed skin. This is consistent with yeast infection. I do not see any evidence of abscess. Extremity normal to inspection Neuro Neuro Narrative: Patient alert answers questions appropriately. MDM MDM MDM Narrative Medical decision making narrative: Patient placed on surveillance system monitor. IV line initiated. IV fluids given along with Tylenol for fever. Labwork obtained to evaluate for leukocytosis, anemia, and electrolyte derangement. Urinalysis obtained to evaluate for infection/hematuria. Swab for COVID, influenza, and RSV obtained. Chest x-ray obtained to evaluate for acute lung pathology, cardiac size, or mediastinal abnormality. Blood and urine cultures obtained. History & Record Review Discussion w/independent historian: Patient and Family Lab Data Attestation: I reviewed the patient's lab results. Labs: Laboratory Results - last 24 hr 08/05/23 08/05/23 08/05/23 17:53 19:29 19:30 WBC 21.3 H RBC 4.38 Hgb 12.9 Hct 40.2 MCV 91.8 MCH 29.5 MCHC 32.1 RDW Std Deviation 43.9 RDW Coeff of Kuldip 13.1 Plt Count 402 MPV 10.0 Immature Gran % (Auto) 0.800 Neut % (Auto) 93.6 H Lymph % (Auto) 3.1 L [place] % (Auto) 2.3 Eos % (Auto) 0.0 Baso % (Auto) 0.2 Absolute Neuts (auto) 20.0 H Absolute Lymphs (auto) 0.66 L Nucleated RBC % 0 Sodium 129 L Potassium 4.6 Chloride 94 L Carbon Dioxide 23.0 Anion Gap 12 BUN 25 H Creatinine 1.56 H Estim Creat Clear Calc 22.47 Est GFR (MDRD) Af Amer 42 L Est GFR (MDRD) Non-Af 34 L BUN/Creatinine Ratio 16.0 Glucose 956 H* Calcium 9.9 Total Bilirubin 0.60 Direct Bilirubin 0.23 AST 11 L ALT 23 Alkaline Phosphatase 105 Troponin I High Sens 153 H* Total Protein 8.2 Albumin 3.2 Globulin 5.0 H Urine Color Yellow Urine Clarity Clear Urine pH 6.5 Ur Specific Jay 1.010 Urine Protein 30 H Urine Glucose (UA) 1000 H Urine Ketones 5 H Urine Occult Blood 150 H Urine Nitrite Positive H Urine Bilirubin Negative Urine Urobilinogen Normal Ur Leukocyte Esterase 25 H Urine RBC 0-5 SEEN Urine WBC 0 SEEN Ur Squamous Epith Cells 0 SEEN Urine Bacteria 1+ Urine Mucus 0 SEEN Acetone Level MODERATE H ABG Data ABG results: ABG 08/05/23 19:11 Specimen Type DEDRICK Sample Site Not entered O2 % 2.0 VBG pH 7.39 VBG pO2 56 H VBG HCO3 23 VBG Total CO2 24 VBG O2 Sat (Calc) 88 H VBG Base Excess -2 L POC Mix VBG pCO2 Pt Tmp 38.1 L O2 Delivery Device Cannula Radiography Chest X-Ray - ED: 1 View, Read by ED Physician, Chronic Changes and No Infiltrates Diagnostic Testing: Clinical Impression(s) from Imaging Studies Chest X-Ray 08/05/23 18:24 IMPRESSION: There are findings consistent with COPD. There is no evidence of acute chest disease. Electronically Signed: Cb Munoz MD at 18:48 EST , EKG Initial EKG: Attestation: I personally reviewed and interpreted this EKG as follows: Interpretation: Sinus Tachycardia (Sinus tach at 114. Nonspecific ST changes.) Treatment and Re-Evaluation :: CBC was a white count of 21.3 with 93.6% neutrophils. Chemistry studies significant for glucose of 956 with a corresponding sodium of 129. Potassium isnormal at 4.6. BUN is 25 and creatinine is 1.56. I do not have prior labs available for comparison. Anion gap is normal. Troponin is elevated at 153. LFTs are unremarkable. Venous blood gas reveals a pH 7.39. Serum acetone is measured at moderate. Swab for COVID, influenza, and RSV is negative. Chest x-ray per my interpretation feels chronic changes with no focal infiltrate. Radiology interpretation is reviewed and agrees. Urinalysis does reveal evidence of infection with positive nitrites and 1+ bacteria. Cultures have been ordered. Patient is given a dose of IV Rocephin. Nystatin powder used in the perineum for her erythema and inflammation. I will speak with hospitalist regarding admission. I anticipate insulin drip, but will speak with hospitalistfirst given the normal pH and anion gap. Discharge Plan Triage Chief Complaint: Hyperglycemia ED Provider: Virginia Gu Dx/Rx/DC Orders Clinical Impression: UTI (urinary tract infection), Hyperglycemia, Elevated troponin Prescriptions: No Action PreserVision AREDS-2 250-90-40-1 mg capsule 1 tab PO BID simvastatin 40 MG tablet 40 mg PO DAILY glimepiride 2 MG tablet 2 mg PO DAILY cholecalciferol (vitamin D3) 1,250 mcg (50,000 unit) capsule 1,250 mcg PO .MONTHLY Patient Comments: TAKE 1 CAPSULE BY MOUTH EVERY MONTH FOR 90 DAYS losartan 25 mg tablet 25 mg PO DAILY Patient Comments: TAKE 1 TABLET BY MOUTH EVERY DAY metformin 750 mg tablet extended release 24 hr 750 mg PO DAILY Patient Comments: TAKE 1 TABLET BY MOUTH EVERY DAY Primary Care Provider: Adelina Guallpa NP Referrals: Adelina Guallpa NP, [facility] [Primary Care Provider] - Disposition Disposition: Acute [facility] What to do if you have Problems For any increased pain, shortness of breath, bleeding, nausea or vomiting, chestpain, or any unexpected problems, contact your Primary Care Provider. Call [facility] ([phone]) or report to the closest Emergency Room. Call 911 if necessary. 08/05/23 2351 <Electronically signed by Virginia Gu MD> Cosigner Signature (if applicable): CC: MENDEZ Guallpa ~ Signed [facility] Work Phone: [phone]) 663-142502-09-2024 History and physical note Author Art Alcaraz [facility] August 05, 2023 9:29pm Note Date/Time August 05, 2023 9 :04pm [facility] Medical Records Department [address] [place] [id number] H&P Exam - Hospitalist 08/05/232033 MR#: [id number] Acct: [id number] Name: MAYTE SWEET Rep #:[id number] : 1945 78 From: Art Reyes PCP: MENDEZ Cash tus:ADM IN Location: [address] HPI - General General Date of Admission: 08/05/23 Date of Service: 08/05/23 Chief Complaint: Generalized weakness tiredness. Fever and hyperglycemia HPI Narrative MAYTE SWEET, is a 78 F came to ED as she was not feeling well with generalized weakness, hyperglycemia has blood sugar was reading high more than 600 and she was also confused in the evening as per the . She was brought to ED by EMS for fever, temperature 102.2 ?F. Patient denies subjective fever chills/shewas unaware of that. Denies burning micturition but has increased urine frequency. Patient states she is very tired and fatigued because her daughter has Down syndrome and is in extended-care facility and she is very sick. 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 She was tearful while telling her story. In ED, she was found tachycardic heart rate 1 2500, tachypneic 34/min. No hypoxia. She denies cough cold, increased shortness of breath more than her normal as she has COPD and chronic smoker. She also had COVID couple weeks ago and she recovered. [facility] Medical History Bowel obstruction COPD (chronic obstructive pulmonary disease) Diabetes Encounter for screening for malignant neoplasm of lung in current smoker with 30pack year history or greater Hyperlipidemia Tobacco use disorder, continuous Vitamin D deficiency Home Medications glimepiride 2 mg tablet 2 mg PO DAILY 09/13/19 [History Last Taken Unknown] simvastatin 40 mg tablet 40 mg PO DAILY 09/13/19 [History Last Taken Unknown] vit C 250 mg-vit E 90 mg-zinc 40 mg-copper 1 [id number] capsule (PreserVision AREDS-2) 1 tab PO BID 01/13/21 [History Last Taken Unknown] cholecalciferol (vitamin D3) 1,250 mcg (50,000 unit) capsule 1,250 mcg PO .MONTHLY 08/05/23 [History Last Taken Unknown] losartan 25 mg tablet 25 mg PO DAILY 08/05/23 [History Last Taken Unknown] metformin 750 mg tablet,extended release 24 hr 750 mg PO DAILY 08/05/23 [History Last Taken Unknown] Allergy/AdvReac Type Severity Reaction Status Date / Time No Known Allergies Allergy Verified 08/05/23 17:58 Family History Father CAD (coronary artery disease) Myocardial infarction Osteoarthritis Brother Multiple myeloma older younger brother Brain aneurysm younger brother Surgical History History of hysterectomy History of intestinal surgery History of removal of ovarian cyst Social History Smoking Status: Current every day smoker tobacco type: cigarettes Tobacco: How many years used: 25 Electronic Cigarette Use: not used second hand exposure: Yes quit status: considering quitting counseling given: provider counseling ROS ROS Narrative Constitutional: Reports severe fatigue and weakness. Fever. HEENT: Reports systems reviewed and no addt'l complaints, except as documented Respiratory/Chest: No acute shortness of breath or respiratory distress or wheezing or cough or URI symptoms. CVS: About age of 11, she had rheumatic fever and she had murmur but states it improved over the years. Denies chest pain pressure or tightness. Gastrointestinal: No nausea. Denies coffee ground emesis, hematemesis or vomiting Genitourinary: Denies burning urination but has increased frequency and some yeast infection Musculoskeletal: Denies acute joint pain or limited range of motion. No acute injury Neurologic: Denies seizure-like symptoms. skin: No ulcer. No rash Endocrinology: Reports systems reviewed and no addt'l complaints, except as documented Hematologic/Lymphatic: Reports systems reviewed and no addt'l complaints, exceptas documented Rest 14 ROS are negative except as mentioned in HPI Vital Signs Vital Signs Vital Signs: 08/05/23 17:50 08/05/23 17:54 08/05/23 17:56 Temperature 102.2 F H 102.2 F H Temperature Source Oral Oral Pulse Rate 125 H 124 H Respiratory Rate 34 H 24 H Respiratory Effort Normal Non-Labored Respiratory Pattern Normal Blood Pressure 136/60 H 145/62 H Blood Pressure Mean 85 89 Pulse Ox 94 94 Oxygen Delivery Method Room Air Room Air Oxygen Flow Rate (L/min) Fraction of Inspired Oxygen (FIO2) 08/05/23 18:43 08/05/23 18:59 08/05/23 19:00 Temperature 102 F H 102 F H Temperature Source Temporal Temporal Pulse Rate 117 H 99 101 H Respiratory Rate 22 H 21 H 23 H Respiratory Effort Respiratory Pattern Blood Pressure 114/47 L 108/45 L 113/54 L Blood Pressure Mean 69 66 73 Pulse Ox 97 95 96 Oxygen Delivery Method Nasal Cannula Nasal Cannula Room Air Oxygen Flow Rate (L/min) 1.5 Fraction of Inspired Oxygen (FIO2) 1.5 08/05/23 20:15 Temperature Temperature Source Pulse Rate 100 Respiratory Rate 21 H Respiratory Effort Respiratory Pattern Blood Pressure 103/47 L Blood Pressure Mean 62 Pulse Ox 96 Oxygen Delivery Method Oxygen Flow Rate (L/min) Fraction of Inspired Oxygen (FIO2) Weight Weight: 102 lb 4.712 oz Body Mass Index (BMI) 18.7 Physical Exam Narrative General: Alert, Oriented x3, Cooperative. Fatigue BMI 18.7 kg/m?. Looks very dehydrated HEENT: Atraumatic, PERRLA, EOMI, Normocephalic Oral: Oral mucosa dry. No Gingival or Mucosal Lesions/ Ulcerations Neck: Supple, No JVD, Negative Carotid Bruits Chest wall/Lungs: Air entry diminished in bilateral lung bases. Bilateral expiratory rhonchi Cardiovascular: Sinus tachycardia. Normal S1, Normal S2, No M/G/R Abdomen: Bowel Sounds Present, Soft, Non Tender, Non-Distended : No dysuria. No renal angle tenderness. No suprapubic tenderness. Extremities: No edema, Capillary Refill Less than 3 Seconds Skin: No rashes, No breakdown Musculoskeletal: No Tenderness to Palpation of Joints or Extremities Neurological: Cranial nerves II-XII grossly intact, DTR 2+/4. No acute focal neurological deficit. Psych/Mental Status: Flat affect. Results Lab / Micro Data 08/05/23 17:53 08/05/23 17:53 Labs: Laboratory Results - last 24 hr 08/05/23 17:53: WBC 21.3 H, RBC 4.38, Hgb 12.9, Hct 40.2, MCV 91.8, MCH 29.5, MCHC 32.1, RDW Std Deviation 43.9, RDW Coeff of Kuldip 13.1, Plt Count 402, MPV 10.0, Immature Gran % (Auto) 0.800, Neut % (Auto) 93.6 H, Lymph % (Auto) 3.1 L, [place] % (Auto) 2.3, Eos % (Auto) 0.0, Baso % (Auto) 0.2, Absolute Neuts (auto) 20.0 H, Absolute Lymphs (auto) 0.66 L, Nucleated RBC % 0, Sodium 129 L, Potassium 4.6, Chloride 94 L, Carbon Dioxide 23.0, Anion Gap 12, BUN 25 H, Creatinine 1.56 H, Estim Creat Clear Calc 22.47, Est GFR (MDRD) Af Amer 42 L, Est GFR (MDRD) Non-Af 34 L, BUN/Creatinine Ratio 16.0, Glucose 956 H*, Calcium 9.9, Total Bilirubin 0.60, Direct Bilirubin 0.23, AST 11 L, ALT 23, Alkaline Phosphatase 105, Troponin I High Sens 153 H*, Total Protein 8.2, Albumin 3.2, Globulin 5.0 H 08/05/23 19:29: Urine Color Yellow, Urine Clarity Clear, Urine pH 6.5, Ur Specific Jay 1.010, Urine Protein 30 H, Urine Glucose (UA) 1000 H, Urine Ketones 5 H, Urine Occult Blood 150 H, Urine Nitrite Positive H, Urine BilirubinNegative, Urine Urobilinogen Normal, Ur Leukocyte Esterase 25 H, Urine RBC 0-5 SEEN, Urine WBC 0 SEEN, Ur Squamous Epith Cells 0 SEEN, Urine Bacteria 1+, UrineMucus 0 SEEN 08/05/23 19:30: Acetone Level MODERATE H 08/05/23 20:11: POC Glucose > 500 H* Micro: Microbiology 08/05/23 18:05 Mucosa - Nose SARS-CoV-2, Influenza & RSV (PCR) - Final ABG Data ABG results: ABG 08/05/23 19:11 Specimen Type DEDRICK Sample Site Not entered O2 % 2.0 VBG pH 7.39 VBG pO2 56 H VBG HCO3 23 VBG Total CO2 24 VBG O2 Sat (Calc) 88 H VBG Base Excess -2 L POC Mix VBG pCO2 Pt Tmp 38.1 L O2 Delivery Device Cannula Imaging Radiology Impression Chest X-Ray 08/05/23 18:24 IMPRESSION: There are findings consistent with COPD. There is no evidence of acute chest disease. Electronically Signed: Cb Munoz MD at 18:48 EST , Assessment & Plan Assessment/Plan (1) Hyperglycemia: PLAN: Plan This is 78-year-old female came to ED with generalized weakness and hyperglycemia and found to have fever, sinus tachycardia and tachypnea. 1. Hyperglycemia with history of diabetes mellitus type 2 most likely due to not adherent to medications, diet: Patient is being admitted to PCU. Her glucose in BMP is 956 and serum acetone moderate but anion gap normal. Bicarb 23. VBG shows 6 pH 7.39, mixed pCO2 38 and total CO2 24 therefore she does not meet criteria for DKA. Patient is being distended with IV fluid normal saline 2L bolus over 2 hours and then start Lantus insulin and Humalog insulin. Accu-Chek insulin coverage with Humalog sliding scale. Continue IV fluid resuscitation as ordered. Hold patient's home oral hypoglycemic medications 2. Hyponatremia most likely due to hyperglycemia with most likely GWYN versus CKD, due to dehydration, prerenal in etiology: Serum sodium is 129, chloride 94. BUNs/creatinine 25/1.56. No prior labs but seems GWYN in the appropriate clinical setting. Monitor electrolytes and kidney function. 3. Fever, abnormal UA with positive nitrite with suspicion of UTI: Patient doesnot have burning micturition/dysuria but increased frequency and urgency may be due to hyperglycemia. UA shows positive nitrite, WBC 0, LE 25 1+ bacteria. Patient also had fever 102 Fahrenheit therefore started on IV ceftriaxone antibiotic. Urine culture and blood cultures x 2 ordered 4. Elevated troponin, exact etiology unclear possible acute myocardial injury from sinus tachycardia, unlikely ACS: Patient does not have chest pain or shortness of breath more than her normal. No acute change. Cycle cardiac enzymes. 5. COPD and current smoker: Patient smokes half pack per day. Patient not on scheduled or rescue inhaler. Advised follow-up in pulmonary clinic. DuoNeb as needed as needed for shortness of breath. Patient recovered from COVID about 2 to 3 weeks ago. Advised COVID vaccines/booster as an outpatient Patient is being managed on scheduled bronchodilator, IV Solu-Medrol, Mucinex, incentive spirometry and Pep. PT and OT ordered 6. VTE prophylaxis moderate risk: Lovenox 30 mG subcu daily. Living will/advanced directive/end of life care: Patient does not have living will or advanced directive. She does not have Camilo power of claims attorney for health. Her next of kin is her . After discussion of benefits/risks procedures involved with full code, DNR CC arrest and DNR CC, the patient optedfor DNRCC arrest with no intubation Patient doesN'T want artificial life support including intubation, tube feed, ventilator and/chest compression, central venous catheter, vasopressor and DC shock if needed Total time spent in [id number] encounter in discussion of advanced directive 17 minutes. Charges/Coding Visit Charges Inpatient E&M: 13198 Init Hosp L3 Procedures Hospitalists Procedures: 40674 Advncd Care Plan 30 Min 08/05/232128 <Electronically signed by Art Alcaraz MD> Cosigner Signature (if applicable): CC: MENDEZ Guallpa; Dr. Art Alcaraz MD~ Signed [facility] Work Phone: Consult note Author Fe Ceron [facility] August 10, 2023 11:35am Note Date/Time August 10, 2023 11:35am [facility] Medical Records Department [address] [place] [id number] Counseling Note - Pharmacy 08/10/23 1134 MR#: [id number] Acct: [id number] Name: MAYTE SWEET Rep #:[id number] : 1945 78 From: Fe Ceron PCP: MENDEZ Cash tus:ADM IN Y Location: [place] [address] Pharmacy [facility] has performed discharge medication reconciliation and counseling for this patient. 1. CEFDINIR 300MG PO BID X 7 DAYS The patient's discharge medication list was reviewed for discrepancies and discrepancies were resolved. The patient was counseled on the following discharge medications and changes in medications for homegoing were reviewed. The Reason for Use, instructions for use, and potential side effects were reviewed for all new medications. The patient's questions regarding all of their medications were answered. The patient was able to verbally demonstrate an understanding of their dischargemedications. Patient counseled by cpc, Marc. Medications at Discharge Home Medications glimepiride 2 mg tablet 2 mg PO DAILY dm 09/13/19 simvastatin 40 mg tablet 40 mg PO QHS cholesterol 09/13/19 vit C 250 mg-vit E 90 mg-zinc 40 mg-copper 1 [id number]-[id number] capsule (PreserVision AREDS-2) 1 tab PO BID 01/13/21 cholecalciferol (vitamin D3) 1,250 mcg (50,000 unit) capsule 1,250 mcg PO .MONTHLY supplement 08/05/23 losartan 25 mg tablet 25 mg PO DAILY bp 08/05/23 metformin 750 mg tablet,extended release 24 hr 750 mg PO DAILY dm 08/05/23 cefdinir 300 mg capsule 300 mg PO BID 7 days #14 caps 08/10/23 08/10/23 1135 <Electronically signed by Fe Ceron> Date _ Fe Ceron Cosigner Signature (if applicable): Date CC: ~ Signed [facility] Work Phone: Discharge summary Author Fabrizio Sanz [facility] August 21, 2023 6:58am Note Date/Time August 21, 2023 5:26am [facility] Medical Records Department [address] [place] [address] Emergency Department Summary 08/21/23 MR#: [id number] Acct: [id number] Name: MAYTE SWEET Rep #:[id number] : 1945 78 From: Fabrizio Sanz MD PCP: MENDEZ Cash Sta tus:REG ER Location: ED HPI History of Present Illness Chief Complaint: Hyperglycemia Informant: patient Narrative Narrative: Patient presents with high blood sugar. Patient states that she got up to urinate 2 AM. That is not that uncommon for her. It did not burn. She states she does urinate a lot and drink a lot of water. This has been going on for months including predating her recent admission. She states she almost never checks her blood sugar at home but decided to check it this morning. It was 499. She took metformin it went down to 430 range. She states she did not feel sick at all. She does not feel ill in any way. She is not having fevers chills. No chest pain trouble breathing. She has frequency but no dysuria. Patient states that she is just on metformin 750 mg once a day. But she took itat 2 AM. On her last visit she had not been taking her meds for some time. It is also listed that she is supposed to be on glimepiride. But she states that that has not been refilled for a while so she does not have it. PFSH [facility] Medical History Anemia Bowel obstruction COPD (chronic obstructive pulmonary disease) Diabetes Encounter for screening for malignant neoplasm of lung in current smoker with 30pack year history or greater Hyperlipidemia Osteoporosis Smoker Tobacco use disorder, continuous Vision loss of left eye Vision loss of right eye Vitamin D deficiency Home Medications glimepiride 2 mg tablet 2 mg PO DAILY dm 09/13/19 [History Last Taken Unknown] simvastatin 40 mg tablet 40 mg PO QHS cholesterol 09/13/19 [History Last Taken Unknown] vit C 250 mg-vit E 90 mg-zinc 40 mg-copper 1 [id number] capsule (PreserVision AREDS-2) 1 tab PO BID 01/13/21 [History Last Taken Unknown] cholecalciferol (vitamin D3) 1,250 mcg (50,000 unit) capsule 1,250 mcg PO .MONTHLY supplement 08/05/23 [History Last Taken Unknown] losartan 25 mg tablet 25 mg PO DAILY bp 08/05/23 [History Last Taken Unknown] metformin 750 mg tablet,extended release 24 hr 750 mg PO DAILY dm 08/05/23 [History Last Taken Unknown] cefdinir 300 mg capsule 300 mg PO BID 7 days #14 caps 08/10/23 [Rx Last Taken Unknown] metformin 1,000 mg tablet 1,000 mg PO BID #60 tabs 08/21/23 [Rx Last Taken Unknown] Allergy/AdvReac Type Severity Reaction Status Date / Time No Known Allergies Allergy Verified 08/05/23 17:58 Family History Father CAD (coronary artery disease) Myocardial infarction Osteoarthritis Brother Multiple myeloma older younger brother Brain aneurysm younger brother Surgical History History of cholecystectomy History of hysterectomy History of intestinal surgery History of removal of ovarian cyst Social History Smoking Status: Current every day smoker tobacco type: cigarettes Tobacco: How many years used: 25 Electronic Cigarette Use: not used second hand exposure: Yes quit status: considering quitting counseling given: provider counseling ROS ROS ED Constitutional Constitutional ED: Denies chills, fever(s) or subjective ENT ENT ED: Denies rhinorrhea Cardiovascular Cardiovascular: Denies chest pain, palpitations or racing heartbeat Respiratory/Chest Respiratory/Chest: Denies cough or dyspnea Gastrointestinal Gastrointestinal: Denies abdominal pain, diarrhea, nausea or vomiting Genitourinary Genitourinary ED: Reports urinary frequency; Denies dysuria or hematuria Musculoskeletal Musculoskeletal: Denies myalgias Integumentary Denies rash Neurologic Neurologic: Denies headache(s) Psychiatric Psychiatric: Denies anxiety Endocrine Endocrinology: Reports polydipsia and polyuria Hematologic/Lymphatic Hematologic/Lymphatic: Denies easy bleeding or easy bruising Allergic/Immunologic Allergic/Immunologic ED: Denies urticaria EXAM Physical Exam Narrative Exam Narrative: CONSTITUTIONAL: Patient is nontoxic in appearance. The patient looks comfortable. HEENT: No notable trauma. Mucous membranes surprisingly still look moist. No exudate. EYES: No conjunctival injection. No pallor. CARDIOVASCULAR: Regular rate. Regular rhythm. No notable murmur. No JVD. RESPIRATORY: No respiratory distress. Breathing is unlabored. No wheezes. GASTROINTESTINAL: Not distended. Bowel sounds are normal. No tenderness. No guarding. No rebound. GENITOURINARY: No tenderness over the bladder. No CVA tenderness felt on either side. MUSCULOSKELETAL: Atraumatic. No peripheral edema. NEUROLOGICAL: Patient is alert and appropriate. No focal deficit noted. SKIN: No noted rashes. No diaphoresis. PSYCHIATRIC: Patient is calm. Mood is appropriate. Const Vital Signs: 08/21/23 05:06 08/21/23 05:09 Temperature 98.2 F Temperature Source Oral Pulse Rate 104 H Respiratory Rate 16 Respiratory Effort Normal Respiratory Pattern Normal Blood Pressure 162/60 H Blood Pressure Mean 94 Pulse Ox 97 Oxygen Delivery Method Room Air MDM MDM MDM Narrative Medical decision making narrative: Patient's bedside blood sugar was still well over 400. She will be given fluidsand some short acting lispro insulin. We will do blood work. Patient CBC shows mild elevation of her white count. She has had this elevated for a while. This is nonspecific. Patient's electrolytes showed mildly low sodium which is mostly factitious due to the elevated glucose level at 436. BUN is slightly high at 27 with a high BUN to creatinine ratio of 27.4-1. She is given IV fluids. This is likely dehydration from osmotic diuresis from hyperglycemia. Patient was given the fluids and lispro here. Recheck of her glucose level shows it has come down significantly to 341. I talked with the patient. She is feeling well. We will increase her metformin. I also spent quite a bit of time discussing foods. I found that shehad a lot of bread before she had checked her sugar. She also had fruit cups. She evidently eats a lot of fruit cups. We went over her diet and most of the things that she eats have of large amount of added sugar. We discussed how to read the nutrition labels on the back of food and with especially looking at theadded sugar section at the end. I printed off information from [employer] terms of foods to eat and foods to avoid. She will follow-up with her physician. I did explain that she may still need an adjustment of medication, new medications, and may even need to be on insulins at some point but I think we can initiate care with improved diet and slight increase of her current medications. Lab Data Attestation: I reviewed the patient's lab results. Labs: Laboratory Results - last 24 hr 08/21/23 08/21/23 05:08 05:27 WBC 14.3 H RBC 4.01 L Hgb 12.2 Hct 36.2 L MCV 90.3 MCH 30.4 MCHC 33.7 RDW Std Deviation 44.5 H RDW Coeff of Kuldip 13.5 Plt Count 441 MPV 9.0 Immature Gran % (Auto) 0.400 Neut % (Auto) 75.7 H Lymph % (Auto) 19.1 [place] % (Auto) 4.4 Eos % (Auto) 0.0 Baso % (Auto) 0.4 Absolute Neuts (auto) 10.8 H Absolute Lymphs (auto) 2.73 Nucleated RBC % 0 Sodium 131 L Potassium 4.7 Chloride 101 Carbon Dioxide 25.0 Anion Gap 5 BUN 27 H Creatinine 0.98 Estim Creat Clear Calc 33.36 Est GFR (MDRD) Af Amer 71 Est GFR (MDRD) Non-Af 58 L BUN/Creatinine Ratio 27.4 H Glucose 436 H Calcium 9.0 POC Glucose 454 H* Discharge Plan Triage Chief Complaint: Hyperglycemia ED Provider: Fabrizio Sanz Dx/Rx/DC Orders Clinical Impression: Hyperglycemia Instructions: ED Diabetic Hyperglycemia Prescriptions: New metformin 1,000 mg tablet 1,000 mg PO BID Qty: 60 0RF No Action PreserVision AREDS-2 250-90-40-1 mg capsule 1 tab PO BID simvastatin 40 MG tablet 40 mg PO QHS glimepiride 2 MG tablet 2 mg PO DAILY cholecalciferol (vitamin D3) 1,250 mcg (50,000 unit) capsule 1,250 mcg PO .MONTHLY Patient Comments: TAKE 1 CAPSULE BY MOUTH EVERY MONTH FOR 90 DAYS losartan 25 mg tablet 25 mg PO DAILY Patient Comments: TAKE 1 TABLET BY MOUTH EVERY DAY metformin 750 mg tablet extended release 24 hr 750 mg PO DAILY Patient Comments: TAKE 1 TABLET BY MOUTH EVERY DAY cefdinir 300 mg capsule 300 mg PO BID 7 Days Qty: 14 0RF Primary Care Provider: Adelina Guallpa INSPECTOR BALANCE BRIDGE Referrals: Adelina Guallpa INSPECTOR BALANCE BRIDGE, INSPECTOR BALANCE BRIDGE-C [Primary Care Provider] - 3-5 Days Activity Restrictions/Additional Instructions: Start taking the new metformin 1000 mg twice a day. Stop your 750 mg of metformin. See your doctor within the next week. You still may need a new medication. They may restart the glimepiride that you used to be taking. Disposition Disposition: Home, Self Care What to do if you have Problems For any increased pain, shortness of breath, bleeding, nausea or vomiting, chestpain, or any unexpected problems, contact your Primary Care Provider. Call [facility] ([phone]) or report to the closest Emergency Room. Call 911 if necessary. 08/21/23 0658 <Electronically signed by Fabrizio Sanz MD> Cosigner Signature (if applicable): CC: INSPECTOR BALANCE BRIDGE-C Adelina Guallpa ~ Signed [facility] Work Phone: Evaluation + Plan note Future Appointments Appointment Date:05/15/2021 02:00:00 PM Scheduled Provider:ADELINA GUALLPA ALMOND HULLER - SAFEK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 Location:[facility] Appointment Type:PC OV Follow Up [facility] Evaluation + Plan note Future Appointments Appointment Date:05/11/2022 10:20:00 AM Scheduled Provider:ADELINA GUALLPA APRN, CNP Location:[facility] Appointment Type:PC OV Future Scheduled Tests Laboratory* Microalbumin Level Urine 05/16/22 Radiology* MA Mammo Screening Bilateral w/ Adonis 11/13/21 * BD Bone Density DEXA Axial Skeleton 11/13/21 [facility] Evaluation + Plan note Future Appointments Appointment Date:11/11/2022 10:40:00 AM Scheduled Provider:ADELINA GUALLPA APRN, CNP Location:[facility] Appointment Type:PC OV Follow Up Future Scheduled Tests Laboratory* Microalbumin Level Urine 11/08/22 * Microalbumin Level Urine 05/16/22 Radiology* MA Mammo Screening Bilateral w/ Adonis 11/13/21 * BD Bone Density DEXA Axial Skeleton 11/13/21 [facility] Evaluation + Plan note Future Appointments Appointment Date:05/12/2023 10:40:00 AM Scheduled Provider:ADELINA GUALLPA APRN, CNP Location:[facility] Appointment Type:PC OV Follow Up Future Scheduled Tests Laboratory* Microalbumin Level Urine 11/08/22 * Microalbumin Level Urine 05/16/22 [facility] Evaluation + Plan note Future Appointments Appointment Date:09/13/2023 02:20:00 PM Scheduled Provider:ADELINA GUALLPA APRN, CNP Location:[facility] Appointment Type:PC OV Follow Up Appointment Date:11/17/2023 09:00:00 AM Scheduled Provider: Location:[facility] Appointment Type:PC Nurse Lab Appointment Date:11/22/2023 09:00:00 AM Scheduled Provider:ADELINA GUALLPA APRN, CNP Location:[facility] Appointment Type:PC OV Follow Up Diagnostic Tests Pending * Renin Activity, Plasma 08/24/23 * Vitamin B6, Plasma 08/24/23 * Antinuclear Antibody Screen, Serum 08/24/23 Future Scheduled Tests Laboratory* Renin, Plasma 11/21/23 * A1C Hemoglobin 11/21/23 * Aldosterone with Na and K, 24 Hr Ur 08/23/23 * Complete Blood Count 11/21/23 * Lipid Profile 11/21/23 * Insulin Level Total 08/23/23 * Albumin/Creatinine Ratio, Random Urine 11/21/23 * Microalbumin Level Urine 11/08/22 * PTH, Intact 11/21/23 * Vitamin D Level 11/21/23 * Complete Metabolic Panel 11/21/23 [facility] Evaluation + Plan note Future Appointments Appointment Date:11/10/2023 10:15:00 AM Scheduled Provider:JULIUS BENJAMIN MD Location:[facility] Appointment Type:ENDO OV Appointment Date:11/17/2023 09:00:00 AM Scheduled Provider: Location:[facility] Appointment Type:PC Nurse Lab Appointment Date:11/22/2023 09:00:00 AM Scheduled Provider:ADELINA GUALLPA APRN, CNP Location:[facility] Appointment Type:PC OV Follow Up Future Scheduled Tests Laboratory* Renin, Plasma 11/21/23 * Magnesium Level 09/29/23 * Thyroid Stimulating Hormone 11/09/23 * Free T4 11/09/23 * A1C Hemoglobin 11/21/23 * Aldosterone with Na and K, 24 Hr Ur 08/23/23 * Complete Blood Count 11/09/23 * Complete Blood Count 11/21/23 * Free T3 11/09/23 * Lipid Profile 11/09/23 * Lipid Profile 11/21/23 * Insulin Level Total 08/23/23 * Albumin/Creatinine Ratio, Random Urine 11/09/23 * Albumin/Creatinine Ratio, Random Urine 11/21/23 * Microalbumin Level Urine 11/08/22 * PTH, Intact 11/21/23 * Vitamin D Level 11/09/23 * Vitamin D Level 11/21/23 * Complete Metabolic Panel 11/09/23 * Complete Metabolic Panel 11/21/23 * anti-Thyroid Peroxidase 11/09/23 Radiology* BD Bone Density DEXA Axial Skeleton 09/14/23 [facility] Evaluation + Plan note Future Appointments Appointment Date:11/22/2023 09:00:00 AM Scheduled Provider:ADELINA GUALLPA APRN, CNP Location:[facility] Appointment Type:PC OV Follow Up Future Scheduled Tests Laboratory* Aldosterone with Na and K, 24 Hr Ur 08/23/23 * Complete Blood Count 11/09/23 * Lipid Profile 11/09/23 * Insulin Level Total 08/23/23 * Albumin/Creatinine Ratio, Random Urine 11/09/23 * Albumin/Creatinine Ratio, Random Urine 11/21/23 * Microalbumin Level Urine 11/08/22 * Vitamin D Level 11/09/23 * Complete Metabolic Panel 11/09/23 Radiology* BD Bone Density DEXA Axial Skeleton 09/14/23 [facility] Evaluation + Plan note Future Appointments Appointment Date:08/02/2024 01:00:00 PM Scheduled Provider:ADELINA GUALLPA APRN, CNP Location:[facility] Appointment Type:PC OV Future Scheduled Tests Laboratory* Uric Acid 06/07/24 * Aldosterone with Na and K, 24 Hr Ur 08/23/23 * Complete Blood Count 11/09/23 * Lipid Profile 11/09/23 * Insulin Level Total 08/23/23 * Albumin/Creatinine Ratio, Random Urine 05/29/24 * Albumin/Creatinine Ratio, Random Urine 11/09/23 * Albumin/Creatinine Ratio, Random Urine 11/21/23 * Sedimentation Rate Automated 06/07/24 * Vitamin D Level 11/09/23 * Complete Metabolic Panel 11/09/23 * Complete Metabolic Panel 06/07/24 Radiology* XR Foot Minimum 3 Views Left 06/07/24 * BD Bone Density DEXA Axial Skeleton 09/14/23 [facility] Evaluation + Plan note Future Appointments Appointment Date:02/21/2025 09:00:00 AM Scheduled Provider:ADELINA GUALLPA APRN, CNP Location:[facility] Appointment Type:PC OV Follow Up Future Scheduled Tests Radiology* XR Foot Minimum 3 Views Left 06/07/24 [facility] evaluation note* Diagnosis Onset Date Resolution Status Elevated troponin acute Gram-negative bacteremia acu te Hyperglycemia acute Sepsis acute Ureteral stone acute UTI (urinary tract infection) [facility] Work Phone: Evaluation note* Diagnosis Ureteral mass- Primary Mass of ureter documented in this encounter [facility] Work Phone: Evaluation note* Diagnosis Mass of ureter- Primary Mass of ureter Ureteral mass HTN (hypertension) Unspecified essential hypertension Hyperlipidemia Other and unspecified hyperlipidemia Chronic obstructive pulmonary disease (Multi) Diabetes mellitus, type 2 (Multi) Type II or unspecified type diabetes mellitus without mention of complication, not stated as uncontrolled Vision loss Unspecified visual loss Macular degeneration Macular degeneration (senile) of retina, unspecified Large bowel obstruction (Multi) Unspecified intestinal obstruction High blood urea nitrogen (BUN) documented in this encounter [facility] Work Phone: Evaluation note* Diagnosis Ureteral mass documented in this encounter [facility] Work Phone: Evaluation note* Diagnosis Ureteral mass documented in this encounter [facility] Work Phone: Evaluation note* Diagnosis Carcinoma of right ureter (Multi)- Primary Asymptomatic microscopic hematuria documented in this encounter [facility] Work Phone: Evaluation note* Diagnosis Ureteral mass- Primary Mass of ureter Carcinoma of right ureter (Multi)- Primary Asymptomatic microscopic hematuria Urothelial carcinoma of kidney, 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, right (Multi) documented in this encounter [facility] Work Phone: Evaluation note* Diagnosis Ureteral mass- Primary Mass of ureter Carcinoma of right ureter (Multi)- Primary Asymptomatic microscopic hematuria Urothelial carcinoma of kidney, 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, right (Multi) documented in this encounter [facility] Work Phone: Evaluation note* Diagnosis Ureteral mass- Primary Mass of ureter Carcinoma of right ureter (Multi)- Primary Asymptomatic microscopic hematuria Urothelial carcinoma of kidney, 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 documented in this encounter [facility] Work Phone: Evaluation note* Diagnosis Ureteral mass- Primary Mass of ureter Carcinoma of right ureter (Multi)- Primary Asymptomatic microscopic hematuria Carcinoma of right ureter (Multi)- Primary Asymptomatic microscopic hematuria documented in this encounter [facility] Work Phone: Evaluation note* 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 Stop your 750 mg of metformin. See your doctor within the next week. You still may need a new medication. 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] Procedures ID LAPAROSCOPY NEPHRECTOMY W/TOTAL URETERECTOMY ID ANASTOMSIS OF URETER ID CYSTO W/INSERT URETERAL STENT ID CYSTO W/URTROSCOPY&/PYELOSCOPY DX Robotic Assisted Nephroureterectomy Braden [facility] [id number] [place] [address] [place] [address] [place] [address] Referral ID Status Reason Start Date Expiration Date Visits Re quested Visits Authorized [id number] 1 1 [facility] Work Phone: Chief Complaint and Reason for Visit Chief Complaint HYPERGLYCEMIA, POSSI BLE UTI HYPERGLYCEMIA, POSSIBLE UTI HYPERGLYCEMIA, POSSIBLE UTI HYPERGLYCEMIA, POSSIBLE UTI HYPERGLYCEMIA, POSSIBLE UTI HYPERGLYCEMIA, POSSIBLE UTI Reason for Visit Elevated troponin Gram-negative bacteremia Hyperglycemia Sepsis Ureteral stone UTI (urinary tract infection) Chief Complaint HYPERGLYCEMIA, POSSI BLE UTI HYPERGLYCEMIA, POSSIBLE UTI HYPERGLYCEMIA, POSSIBLE UTI HYPERGLYCEMIA, POSSIBLE UTI HYPERGLYCEMIA, POSSIBLE UTI HYPERGLYCEMIA, POSSIBLE UTI HYPERGLYCEMIA, POSSIBLE UTI Sugar spiked again Reason for Visit Elevated troponin Gram-negative bacteremia Hyperglycemia Sepsis Ureteral stone UTI (urinary tract infection) Chief Complaint HYPERGLYCEMIA, POSSI BLE UTI HYPERGLYCEMIA, POSSIBLE UTI HYPERGLYCEMIA, POSSIBLE UTI HYPERGLYCEMIA, POSSIBLE UTI HYPERGLYCEMIA, POSSIBLE UTI HYPERGLYCEMIA, POSSIBLE UTI HYPERGLYCEMIA, POSSIBLE UTI Sugar spiked again CALCULUS OF KIDNEY Reason for Visit Elevated troponin Gram-negative bacteremia Hyperglycemia Sepsis Ureteral stone UTI (urinary tract infection) Family History No Family History Records Found Relationship Condition Age at Onset Recorded Date/[place] father Coronary artery disease Unknown Myocardial infarction Unknown Osteoarthritis Unknown brother Multiple myeloma Unknown Cerebral aneurysm Unknown Advance Directives No Advanced Directives Records Found Date Activated Date Inactivated Comments 03/07/2024 11:11 AM Question Answer Comments Plan of Care: Code Status Discussion Completed Decision Maker: Patient Date Activated Date Inactivated Comments 12/26/2023 11:20 AM 03/07/2024 11:11 AM Question Answer Comments Plan of Care: Code Status Discussion Completed Decision Maker: Patient Date Activated Date Inactivated Comments 11/07/2023 10:32 AM 12/26/2023 11:20 AM Question Answer Comments Plan of Care: Code Status Discussion Completed Decision Maker: Patient Date Activated Date Inactivated Comments 12/26/2023 11:20 AM Question Answer Comments Plan of Care: Code Status Discussion Completed Decision Maker: Patient Date Activated Date Inactivated Comments 11/07/2023 10:32 AM 12/26/2023 11:20 AM Question Answer Comments Plan of Care: Code Status Discussion Completed Decision Maker: Patient Advance Directive Response Recorded Date/ Time Living Will No August 05 10:20pm Power of Tapper Helper No August 05, 2023 10:20pm Advance Directive Response Recorded Date/ Time Living Will No August 21, 5:09am Power of Tapper Helper No August 21, 2023 5:09am Date Activated Date Inactivated Comments 11/07/2023 10:32 AM Date Activated Date Inactivated Comments 11/07/2023 10:32 AM Date Activated Date Inactivated Comments 12/26/2023 11:20 AM Date Activated Date Inactivated Comments 11/07/2023 10:32 AM 12/26/2023 11:20 AM Reason for Referral Specialty Diagnoses / Procedures Referred By Contac t Referred To Contact Diagnoses Carcinoma of right ureter (Multi) Procedures ECG 12 lead [place] [facility] [address] [facility] [place] [address] Referral ID Status Reason Start Date Expiration Date V isits Requested Visits Authorized [id number] Authorized 01/15/2024 01/14/2025 1 1 Specialty Diagnoses / Procedures Referred By Contac t Referred To Contact Radiology Diagnoses Ureteral mass Procedures CT urography w 3D volume rendered imaging [place] [facility] [id number] [facility] [place] [address] Referral ID Status Reason Start Date Expiration Date Visits Requested Visits Authorized [id number] Authorized Perform Procedure 11/09/2023 11/08/2024 1 1 Specialty Diagnoses / Procedures Referred By Contac t Referred To Contact Diagnoses Ureteral mass Procedures ECG 12 [place] [facility] [address] [facility] [place] [address] Referral ID Status Reason Start Date Expiration Date V isits Requested Visits Authorized [id number] Authorized 10/14/2023 10/13/2024 1 1 Summary Purpose Additional Source Comments Care Team (unrecognized sect ion and content) Team Status: Active Member Role Status Dates Adelina Guallpa Family Provider Active Adelina Guallpa INSPECTOR [employer]ANCE BRIDGE, INSPECTOR BALANCE BRIDGE-C Primary Care Provider Active Team Status: Active Member Role Status Dates Adelina Guallpa INSPECTOR BALANCE BRIDGE, INSPECTOR BALANCE BRIDGE-C Primary Care Provider Active Dr. Virginia Gu MD Emergency Provider Active Dr. Art Alcaraz MD Admit Provider, A ttending Provider, Other Provider Active Team Status: Active Member Role Status Dates Adelina Guallpa NP, INSPECTOR [employer]ANCE BRIDGE-C Primary Care Provider Active Dr. Virginia Gu MD Emergency Provider Active Dr. Art Alcaraz MD Admit Provider, A ttending Provider, Other Provider Active Dr. Baldev Gaxiola DO Other Provider Active Team Status: Active Member Role Status Dates Adelina Guallpa NP, INSPECTOR BALANCE BRIDGE-C Primary Care Provider Active Dr. Virginia Gu MD Emergency Provider Active Dr. Art Alcaraz MD Admit Provider, Other Provider Active Dr. Baldev Gaxiola DO Attending Provider, Other Provider Active Team Status: Active Member Role Status Dates Adelina Guallpa INSPECTOR BALANCE BRIDGE, INSPECTOR BALANCE BRIDGE-C Primary Care Provider Active Dr. Toby Benitez MD Attending Provider Activ e Team Status: Active Member Role Status Dates Adelina Guallpa INSPECTOR BALANCE BRIDGE, INSPECTOR BALANCE BRIDGE-C Primary Care Provider Active Dr. Virginia Gu MD Emergency Provider Active Dr. Art Alcaraz MD Admit Provider, Other Provider Active Dr. Baldev Gaxiola DO Attending Provider, Other Provider Active Dr. Roshan Simon MD Other Provider Active Team Status: Inactive Member Role Status Dates Adelina Guallpa INSPECTOR BALANCE BRIDGE, INSPECTOR BALANCE BRIDGE-C Primary Care Provider Active Dr. Virginia Gu MD Emergency Provider Active Dr. Art Alcaraz MD Admit Provider, Other Provider Active Dr. Roshan Simon MD Other Provider Active Dr. Hesham Solomon MD Attending Provider Active Dr. Baldev Gaxiola DO Other Provider Active Team Status: Active Member Role Status Dates Adelina Guallpa INSPECTOR BALANCE BRIDGE, INSPECTOR BALANCE BRIDGE-C Primary Care Provider Active Dr. Virginia Gu MD Emergency Provider Active Dr. Art Alcaraz MD Admit Provider, Other Provider Active Dr. Roshan Simon MD Other Provider Active Dr. Hesham Solomon MD Attending Provider, Other Provider Active Dr. Baldev Gaxiola DO Other Provider Active Team Status: Inactive Member Role Status Dates Adelina Guallpa INSPECTOR BALANCE BRIDGE, INSPECTOR BALANCE BRIDGE-C Primary Care Provider Active Dr. Fabrizio Sanz MD Emergency Provider Active Team Status: Inactive Member Role Status Dates Adelina Guallpa INSPECTOR BALANCE BRIDGE, INSPECTOR BALANCE BRIDGE-C Primary Care Provider Active Dr. Fabrizio Sanz MD Attending Provider, Emergency Provider Active Team Status: Inactive Member Role Status Dates Adelina Guallpa INSPECTOR BALANCE BRIDGE, INSPECTOR BALANCE BRIDGE-C Primary Care Provider Active Dr. Roshan Simon MD Attending Provider, Referr ing Provider Active Pain Management Nurse Relationship Specialty Start Date End Date Adelina Guallpa ALMOND HULLER-SAFEK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 [address] [place] [id number] PCP - General Family Medicine 10/14/23 Pain Management Nurse Relationship Specialty Start Date End Date Adelina Guall[facility] [address] [facility] [address] PCP - General Family Medicine 10/14/23 Pain Management Nurse Relationship Specialty Start Date End Date Adelina Guallpa [facility] [address] [facility] [address] PCP - General Family Medicine 10/14/23 Pain Management Nurse Relationship Specialty Start Date End Date Adelina Guallpa [facility] [address] [facility] [address] PCP - General Family Medicine 10/14/23 Pain Management Nurse Relationship Specialty Start Date End Date Adelina Guallpa [facility] [address] [facility] [address] PCP - General Family Medicine 10/14/23 Pain Management Nurse Relationship Specialty Start Date End Date Adelina Guallpa [facility] [address] [facility] [address] PCP - General Family Medicine 10/14/23 Pain Management Nurse Relationship Specialty Start Date End Date Adelina Guall[facility] [address] [facility] [address] PCP - General Family Medicine 10/14/23 Pain Management Nurse Relationship Specialty Start Date End Date Adelina Guallpa APRN-CNP [address] [facility] [place] [address] PCP - General Family Medicine 10/14/23 Pain Management Nurse Relationship Specialty Start Date End Date Adelina Guallpa APRN-CNP [address] [facility] [place] [address] PCP - General Family Medicine 10/14/23 Pain Management Nurse Relationship Specialty Start Date End Date Adelina Guallpa APRN-CNP [address] [facility] [place] [address] PCP - General Family Medicine 10/14/23 Care Team (unrecognized sect ion and content) Care Team Personnel Name: ADELINA GUALLPA APRN, CNP Position: P4 Advanced Practice Nurse Member Role: Primary Care Physician Address: Address: [address] [place] [id number] [place] Care Team Related Persons Name: KIM SWEET Address: Home [address] [place], [place] [id number] Reason for Visit (unrecogniz ed section and content) Reason Comments Ureteral Mass Specialty Diagnoses / Procedures Referred By Twan t Referred To Contact Diagnoses Ureteral mass Procedures ECG 12 lead Braden Hopkins MD MPH [id number] [facility] [place] [address] Referral ID Status Reason Start Date Expiration Date V isits Requested Visits Authorized [id number] Authorized 10/14/2023 10/13/2024 1 1 Specialty Diagnoses / Procedures Referred By Twan faye Referred To Contact Radiology Diagnoses Ureteral mass Procedures CT urography w 3D volume rendered imaging Braden Hopkins MD MPH [id number] [facility] Department of Urology [place] [id number] Referral ID Status Reason Start Date Expiration Date Visits Requested Visits Authorized [id number] Authorized Perform Procedure 11/09/2023 11/08/2024 1 1 Reason Comments Post-op Follow-up Reason Comments Follow-up Reason Comments CYSTOSCOPY Scheduled Active and Recently Administ ered Medications (unrecognized section and content) Medication Order 11/05/2023 11/06/2023 11/07/2023 ceFAZolin in dextrose (iso-os) (Ancef) IVPB 2 g (COMPLETED) 2 g, intravenous, Administer over 30 Minutes, Once, On Tue11/07/23 at 1100, For 1 dose, Preprocedure, Administer within 60 minutes prior to incision. premix bag, Dosing of this medication varies based on severity of illness. Does this patient have sepsis or concern for sepsis (probable or documented infection plus systemic manifestations of infection)? No, Suspected Indication (Select all that apply): Surgical Prophylaxis 1122 (Given - Provid er: Derek Arceo, [employer]) lidocaine PF (Xylocaine) 10 mg/mL (1 %) injection 1 mg 1 mg (0.1 mL), subcutaneous, Once, On Tue11/07/23 at 1330, For 1 dose, Recovery (only), To be used for IV insertion ONLY 1330 (Due) methocarbamol (Robaxin) injection 500 mg 500 mg, intravenous, Administer over 4 Minutes, Once, On Tue11/07/23 at 1330, For 1 dose, Recovery (only) 1330 (Due) Continuous Medication Order 11/05/2023 11/06/2023 11/07/2023 lactated Ringer's infusion 100 mL/hr, intravenous, Continuous, Starting on Tue11/07/23 at 1330, Recovery (only) 1330 (Due) sodium chloride 0.9% infusion 100 mL/hr, intravenous, Continuous, Starting on Tue11/07/23 at 1100, Preprocedure 1100 (Due) PRN Medication Order 11/05/2023 11/06/2023 11/07/2023 acetaminophen (Tylenol) tablet 650 mg 650 mg, oral, Every 4 hours PRN, pain mild (1-3), first line, If patient has not received Tylenol in past 8 hours, Starting on Tue11/07/23 at 1311, Recovery (only), When able to take oral medications., If ordered PRN for pain, nurse is permitted to administer this medication for higher pain scores based on patient preference? Yes albuterol 2.5 mg /3 mL (0.083 %) nebulizer solution 2.5 mg 2.5 mg, nebulization, Once as needed, wheezing, Starting on Tue11/07/23 at 1311, For 1 dose, Recovery (only) diphenhydrAMINE (BENADryl) injection 12.5 mg 12.5 mg, intravenous, Once as needed, itching, allergic reaction, Starting on Tue11/07/23 at 1311, For 1 dose, Recovery (only) droperidol (Inapsine) injection 0.625 mg 0.625 mg, intravenous, Once as needed, nausea/vomiting, second line, Starting on Tue11/07/23 at 1311, For 1 dose, Recovery (only), Monitor QTc while on therapy (2 lead monitoring) hydrALAZINE (Apresoline) injection 5 mg 5 mg, intravenous, Administer over 2 Minutes, Every 30 min PRN, high blood pressure, systolic blood pressure greater than 180 mmHg and heart rate less than 60 BPM, Starting on Tue11/07/23 at 1311, For 2 doses, Recovery (only) HYDROmorphone (Dilaudid) injection 0.2 mg 0.2 mg, intravenous, Every 5 min PRN, pain moderate (4-6), first line, Starting on Tue11/07/23 at 1311, Recovery (only), Max total of 4 mg regardless of dose. HYDROmorphone (Dilaudid) injection 0.4 mg 0.4 mg, intravenous, Every 5 min PRN, pain severe (7-10), first line, Starting on Tue11/07/23 at 1311, Recovery (only), Max total of 4 mg regardless of dose. labetaloL (Normodyne,Trandate) injection 5 mg 5 mg, intravenous, Administer over 1 Minutes, Once as needed, systolic blood pressure greater than 180 mmHg, dystolic blood pressure greater than 100 mmHg and heart rate greater than 60 BPM, Starting on Tue11/07/23 at 1311, For 1 dose, Recovery (only) midazolam (Versed) injection 0.5 mg 0.5 mg, intravenous, Every 15 min PRN, anxiety, as needed for anxiety, Starting on Tue11/07/23 at 1311, For 2 doses, Recovery (only) ondansetron (Zofran) injection 4 mg 4 mg, intravenous, Once as needed, nausea/vomiting, first line, Starting on Tue11/07/23 at 1311, For 1 dose, Recovery (only), When administering via IV Push, administer over 3-5 minutes. oxyCODONE (Roxicodone) immediate release tablet 5 mg 5 mg, oral, Every 4 hours PRN, pain moderate (4-6), second line, Starting on Tue11/07/23 at 1311, Recovery (only), When able to take oral medications., If ordered PRN for pain, nurse is permitted to administer this medication for higher pain scores based on patient preference? Yes oxygen (O2) therapy inhalation, Continuous PRN - O2/gases, other, Starting on Tue11/07/23 at 1311, Recovery (only), May use simple face mask with oxygen flow as needed to keep O2 sat above 92%, Device: Nasal Cannula, Rate in liters per minute: 4 LPM, Keep O2 Sat Above: 92% No Frequency Medication Order 11/05/2023 11/06/2023 11/07/2023 ioversol (Optiray-320) injection - [employer] Override Pull Starting on Tue11/07/23 at 1111, For 1 dose, Created by cabinet override 1115 (Due) Scheduled Medication Order 2024 03/06/2024 03/07/2024 acetaminophen (Tylenol) tablet 975 mg (COMPLETED) 975 mg, oral, Once, On Tue03/07/24 at 1130, For 1 dose, Preprocedure, If ordered PRN for pain, nurse is permitted to administer this medication for higher pain scores based on patient preference? Yes 1202 (Given - Provid er: Darling Vizcaino RN) celecoxib (CeleBREX) capsule 400 mg (COMPLETED) 400 mg, oral, Once, On Tue03/07/24 at 1130, For 1 dose, Preprocedure, Capsules may be opened and sprinkled on a spoonful of cold or room temperature applesauce. 1202 (Given - Provid er: Darling Vizcaino RN) gabapentin (Neurontin) capsule 300 mg (COMPLETED) 300 mg, oral, Once, On Tue03/07/24 at 1130, For 1 dose, Preprocedure, Capsules may be opened and sprinkled on food (eg, applesauce, orange juice, pudding 1202 (Given - Provid er: Darling Vizcaino RN) heparin (porcine) injection 5,000 Units (COMPLETED) 5,000 Units, subcutaneous, Once, On Tue03/07/24 at 1130, For 1 dose, Preprocedure, Indications: deep vein thrombosis prevention 1202 (Given - Provid er: Darling Vizcaino RN) lidocaine PF (Xylocaine) 10 mg/mL (1 %) injection 1 mg 1 mg (0.1 mL), subcutaneous, Once, On Tue03/07/24 at 1515, For 1 dose, Recovery (only), To be used for IV insertion ONLY 1515 (Due) Continuous Medication Order 2024 03/06/2024 03/07/2024 lactated Ringer's infusion 20 mL/hr, intravenous, Continuous, Starting on Tue03/07/24 at 1130, Preprocedure 1130 (Due) lactated Ringer's infusion 100 mL/hr, intravenous, Continuous, Starting on Tue03/07/24 at 1515, Recovery (only) 1500 (New Bag - Prov ider: Joy Bustos RN)1630 (Stopped - Provider: Joy Bustos RN) PRN Medication Order 2024 03/06/2024 03/07/2024 droperidol (Inapsine) injection 0.625 mg 0.625 mg, intravenous, Once as needed, nausea/vomiting, second line, Starting on Tue03/07/24 at 1457, For 1 dose, Recovery (only), Monitor QTc while on therapy (2 lead monitoring) HYDROmorphone (Dilaudid) injection 0.2 mg 0.2 mg, intravenous, Every 5 min PRN, pain moderate (4-6), first line, Starting on Tue03/07/24 at 1457, Recovery (only), Max total of 4 mg regardless of dose. HYDROmorphone (Dilaudid) injection 0.5 mg 0.5 mg, intravenous, Every 5 min PRN, pain severe (7-10), first line, Starting on Tue03/07/24 at 1457, Recovery (only), Max total of 4 mg regardless of dose. ondansetron (Zofran) injection 4 mg 4 mg, intravenous, Once as needed, nausea/vomiting, first line, Starting on Tue03/07/24 at 1457, For 1 dose, Recovery (only), When administering via IV Push, administer over 3-5 minutes. oxyCODONE (Roxicodone) immediate release tablet 10 mg 10 mg, oral, Every 4 hours PRN, pain severe (7-10), second line, Starting on Tue03/07/24 at 1457, Recovery (only), When able to take oral medications., If ordered PRN for pain, nurse is permitted to administer this medication for higher pain scores based on patient preference? Yes oxyCODONE (Roxicodone) immediate release tablet 5 mg 5 mg, oral, Every 4 hours PRN, pain moderate (4-6), second line, Starting on Tue03/07/24 at 1457, Recovery (only), When able to take oral medications., If ordered PRN for pain, nurse is permitted to administer this medication for higher pain scores based on patient preference? Yes oxygen (O2) therapy inhalation, Continuous PRN - O2/gases, other, Starting on Tue03/07/24 at 1457, Recovery (only), Device: Nasal Cannula, Rate in liters per minute: Other, Custom Value: 1-6 LPM, Keep O2 Sat Above: 92% sodium chloride 0.9 % irrigation solution (CANCELED) As needed, Starting on Tue03/07/24 at 1456, Intraprocedure 1456 (Given - Provid er: Braden Hopkins MD MPH) Scheduled Medication Order 12/24/2023 12/25/2023 12/26/2023 lidocaine PF (Xylocaine) 10 mg/mL (1 %) injection 1 mg 1 mg (0.1 mL), subcutaneous, Once, On Tue12/26/23 at 1430, For 1 dose, Recovery (only), To be used for IV insertion ONLY 1430 (Not Given - Pr ovider: Yasmine Jaramillo RN - Reason: Other) methocarbamol (Robaxin) injection 1,000 mg 1,000 mg, intravenous, Administer over 4 Minutes, Once, On Tue12/26/23 at 1430, For 1 dose, Recovery (only) 1430 (Not Given - Pr ovider: Yasmine Jaramillo RN - Reason: Other - Comment: patient not having pain, hypotensive in OR) Continuous Medication Order 12/24/2023 12/25/2023 12/26/2023 lactated Ringer's infusion 100 mL/hr, intravenous, Continuous, Starting on Tue12/26/23 at 1430, Recovery (only) 1430 (Continued from OR - Provider: Yasmine Jaramillo RN)1500 (Stopped - Provider: Yasmine Jaramillo RN) sodium chloride 0.9% infusion 100 mL/hr, intravenous, Continuous, Starting on Tue12/26/23 at 1500, Preprocedure 1500 (Not Given - Pr ovider: Yasmine Jaramillo RN - Reason: Other - Comment: from preop) PRN Medication Order 12/24/2023 12/25/2023 12/26/2023 albuterol 2.5 mg /3 mL (0.083 %) nebulizer solution 2.5 mg (COMPLETED) 2.5 mg, nebulization, Once as needed, wheezing, Starting on Tue12/26/23 at 1407, For 1 dose, Recovery (only) 1445 (Given - Provid er: Yasmine Jaramillo RN) droperidol (Inapsine) injection 0.625 mg 0.625 mg, intravenous, Once as needed, nausea/vomiting, second line, Starting on Tue12/26/23 at 1407, For 1 dose, Recovery (only), Monitor QTc while on therapy (2 lead monitoring) HYDROmorphone (Dilaudid) injection 0.2 mg 0.2 mg, intravenous, Every 5 min PRN, pain moderate (4-6), first line, Starting on Tue12/26/23 at 1407, Recovery (only), Max total of 4 mg regardless of dose. HYDROmorphone (Dilaudid) injection 0.5 mg 0.5 mg, intravenous, Every 5 min PRN, pain severe (7-10), first line, Starting on Tue12/26/23 at 1407, Recovery (only), Max total of 4 mg regardless of dose. ioversol (Optiray-320) injection (CANCELED) As needed, Starting on Tue12/26/23 at 1245, Intraprocedure 1245 (Given - Provid er: Braden Hopkins MD MPH - Comment: injected into right ureter mixed 50:50 with water for irrigation) labetaloL (Normodyne,Trandate) injection 5 mg 5 mg, intravenous, Administer over 1 Minutes, Once as needed, systolic blood pressure greater than 180 mmHg, dystolic blood pressure greater than 100 mmHg and heart rate greater than 60 BPM, Starting on Tue12/26/23 at 1407, For 1 dose, Recovery (only) meperidine PF (Demerol) injection 12.5 mg 12.5 mg, intravenous, Every 10 min PRN, shivering, Starting on Tue12/26/23 at 1407, Recovery (only) midazolam (Versed) injection 1 mg 1 mg, intravenous, Once as needed, anxiety, Starting on Tue12/26/23 at 1407, For 1 dose, Recovery (only) oxyCODONE (Roxicodone) immediate release tablet 5 mg 5 mg, oral, Every 4 hours PRN, pain mild (1-3), first line, Starting on Tue12/26/23 at 1407, Recovery (only), When able to take oral medications., If ordered PRN for pain, nurse is permitted to administer this medication for higher pain scores based on patient preference? Yes oxygen (O2) therapy inhalation, Continuous PRN - O2/gases, other, Starting on Tue12/26/23 at 1407, Recovery (only), Device: Nasal Cannula, Rate in liters per minute: 2 LPM, Keep O2 Sat Above: 92% promethazine (Phenergan) 6.25 mg in sodium chloride 0.9% 50 mL IV 6.25 mg, intravenous, Administer over 15 Minutes, Once as needed, Nausea/vomiting first line, Starting on Tue12/26/23 at 1407, For 1 dose, Recovery (only) sodium chloride 0.9 % irrigation solution (CANCELED) As needed, Starting on Tue12/26/23 at 1241, Intraprocedure 1241 (Given - Provid er: Braden Hopkins MD MPH) sterile water irrigation solution (CANCELED) As needed, Starting on Tue12/26/23 at 1241, Intraprocedure 1241 (Given - Provid er: Braden Hopkins MD MPH - Comment: and to clean instruments) surgical lubricant gel (CANCELED) As needed, Starting on Tue12/26/23 at 1242, Intraprocedure 1242 (Given - Provid er: Braden Hopkins MD MPH - Comment: cystoscope , and perineal area) INFORMATION SOURCE (unrecogn ized section and content) DATE CREATED AUTHOR 11/11/2023 [facility] DATE CREATED AUTHOR AUTHOR'S ORGANIZ ATION 11/22/2023 [facility] ([place]) DATE CREATED AUTHOR AUTHOR'S ORGANIZ ATION 01/12/2024 [facility] DATE CREATED AUTHOR AUTHOR'S ORGANIZ ATION 03/04/2024 [facility] DATE CREATED AUTHOR AUTHOR'S ORGANIZ ATION 03/09/2024 [facility] DATE CREATED AUTHOR AUTHOR'S ORGANIZ ATION 08/31/2024 [facility] DATE CREATED AUTHOR AUTHOR'S ORGANIZ ATION 02/18/2025 [facility] FOR RECORDS PERTAINING TO PATIENTS WHO ARE [...] BE BASED ON THE PRIMARY CLINICAL RECORDS. [facility] [employer] provides no warranty or guarantee of the accuracy or completeness of information in this document.
[2025-03-14 02:56] VITALS: BP 160/92; PULSE 69; RESP 18; TEMP 36.6; O2SAT 95
== END 2025-03-14 03:04 | disposition home or self-care (01) ==
PROVIDERS: Emergency Provider Emergency Medicine; PCP Nurse Practitioner Family; Visit Provider Emergency Medicine
DX: R05.9 Cough, unspecified (principal); J44.9 Chronic obstructive pulmonary disease, unspecified; E11.9 Type 2 diabetes mellitus without complications; Z79.4 Long term (current) use of insulin; R04.2 Hemoptysis; E78.5 Hyperlipidemia, unspecified; I10 Essential (primary) hypertension; F17.210 Nicotine dependence, cigarettes, uncomplicated; J40 Bronchitis, not specified as acute or chronic; Z79.899 Other long term (current) drug therapy; Z79.84 Long term (current) use of oral hypoglycemic drugs; Z90.49 Acquired absence of other specified parts of digestive tract; Z90.710 Acquired absence of both cervix and uterus
CPT/HCPCS: 96360; 96361; 99283; 71275; 80048; 83605; 85025; 85610; 85730; 87631; 93005; Q9967; A4216

== ENCOUNTER 2025-03-15 19:45 | Inpatient (IN) | payer MEDICARE, OTHER, SELFPAY ==
[2025-03-15 19:45] VITALS: BP 164/94; RESP 20; TEMP 36.8; O2SAT 90; BMI 18.8
[2025-03-15 19:48] VITALS: O2SAT 89; O2SAT 95
--- NOTE | 2025-03-15 19:48 | ED.RN ---
ARMANDO CHANGED DUE TO OXYGEN SATURATION.
[2025-03-15 20:54] VITALS: BP 146/76; PULSE 89; RESP 25; TEMP 36.8; O2SAT 94
[2025-03-15 21:00] VITALS: BP 150/73; PULSE 103; RESP 28; TEMP 36.8; O2SAT 93
--- OUTSIDE RECORDS SUMMARY | 2025-03-15 21:00 | XMS RPT_ITS | CCD ---
Author Organization [facility] CliniSyin Care Team Providers Care Bookkeeping Clerk Name Role Phone SALONI CHECKER LOADER - PATTI, ADELINA Reyes Primary Care Phys ician Saloni SURGERY NURSE, SURGERY NURSE-C Adelina Croft Primary Care Pr ovider Dr. Virginia Gu Emergency Provider Dr. Art Alcaraz Admit Provider Dr. Art Alcaraz Attending Provider Dr. Art Alcaraz Other Provider Dr. Baldev Gaxiola Attending Provider Dr. Baldev Gaxiola Other Provider Dr. Toby Benitez Attending Provider Dr. Roshan Simon Other Provider Dr. Hesham Solomon Attending Provider Dr. Hesham Solomon Other Provider Saloni SIMMONSN-PATTI, Adelina Croft Primary Care P rovider SALONI RAYMOND - PATTI, ADELINA Reyes Primary Care U navailable JULIUS BENJAMIN MD Attending Unavaila ble SALNOI CHECKER LOADER - PATIENT SAFETY ATTENDANT, ADELINA Reyes Attending U navailable SALONI CHECKER LOADER - PATIENT SAFETY ATTENDANT, ADELINA Reyes Primary Care U navailable SALONI CHECKER LOADER - PATIENT SAFETY ATTENDANT, ADELINA Reyes Attending U navailable SALONI CHECKER LOADER - PATIENT SAFETY ATTENDANT, ADELINA Reyes Primary Care U navailable SALONI CHECKER LOADER - PATIENT SAFETY ATTENDANT, ADELINA Reyes Attending U navailable SALONI CHECKER LOADER - PATIENT SAFETY ATTENDANT, ADELINA Reyes Primary Care U navailable SALONI CHECKER LOADER - PATIENT SAFETY ATTENDANT, ADELINA Reyes Attending U navailable SALONI CHECKER LOADER - PATIENT SAFETY ATTENDANT, ADELINA Reyes Primary Care U navailable SALONI CHECKER LOADER - PATIENT SAFETY ATTENDANT, ADELINA Reyes Primary Care U navailable SALONI CHECKER LOADER - PATIENT SAFETY ATTENDANT, ADELINA Reyes Attending U navailable KELLIE, BRADEN Shields Referring Unavailable SALONI, ADELINA CROFT [facility] Care Unavail able CALAWAY, BRADEN C Attending Unavailable SALONI, ADELINA CROFT [facility] Care Unavail able CALAWAY, BRADEN C Attending Unavailable SALONI, ADELINA ROBERTO [facility] Care Unavail able CALAWAY, BRADEN C Attending Unavailable SALONI, ADELINA CROFT [facility] Care Unavail able CALAWAY, BRADEN C Attending Unavailable SALONI, ADELINA ROBERTO [facility] Care Unavail able CALAWAY, BRADEN C Admitting Unavailable CALAWAY, BRADEN C Attending Unavailable SALONI, ADELINA CROFT [facility] Care Unavail able SALONI, ADELINA CROFT [facility] Care Unavail able CALAWAY, BRADEN C Referring Unavailable SALONI, ADELINA CROFT [facility] Care Unavail able CALAWAY, BRADEN C Referring Unavailable SALONI, ADELINA ROBERTO [facility] Care Unavail able CALAWAY, BRADEN C Admitting Unavailable CALAWAY, BRADEN C Attending Unavailable SALONI, ADELINA CROFT Primary Care Unavail able SALONI, ADELINA ROBERTO Primary Care Unavail able CALAWAY, BRADEN C Admitting Unavailable CALAWAY, BRADEN C Attending Unavailable SALONI, ADELINA CROFT [facility] Care Unavail able CALAWAY, BRADEN C Attending Unavailable SALONI, ADELINA CROFT Primary Care Unavail able SALONI, ADELINA CROFT Primary Care Unavail able CALAWAY, BRADEN C Referring Unavailable SALONI, ADELINA CROFT Primary Care Unavail able SALONI MANDI - PATTI, ADELINA Reyes Attending U navailable SALONI CHECKER LOADER - PATIENT SAFETY ATTENDANT, ADELINA Reyes Primary Care U navailable SALONI CHECKER LOADER - PATIENT SAFETY ATTENDANT, ADELINA Reyes Attending U navailable SALONI CHECKER LOADER - PATIENT SAFETY ATTENDANT, ADELINA Reyes Primary Care U navailable TYSON KNAPP MD Attending Unavail able SALONI CHECKER LOADER - PATIENT SAFETY ATTENDANT, ADELINA Reyes [facility] [place] SURGERY NURSE-C, Adelina Croft Primary Care Physi gabbi Dr. Andrez Arias DO Emergency Department Physic aleksander Andrez Arias Attending Unavailable [place] SURGERY NURSE, Adelina Croft Primary [facility] Emergency Department Unav ailable Medications Current Medications Medication Drug Class(es) Dates Sig (Normalized) Sig (Original) [id number] 200 actuat albuterol 0.09 mg/actuat metered dose inhaler (20 sources) beta2-Adrenergic Agonist Start: 08-23-2024 End: 02-19-2025 take 1 puff(s) by inhalation every four hours ProAir HFA MDI (90 mcg/inh) inhalation aerosol 1 puff(s), Inhalation, q4h, # 1 EA, 5 Refill(s), Pharmacy: [facility]/pharmacy #[id number], Chronic obstructive pulmonary disease (COPD), 156.5, [...] q4h, # 1 EA, 5 Refill(s), Pharmacy: [facility]/pharmacy #[id number], Chronic obstructive pulmonary disease (COPD), 156, [...] q4h, # 1 EA, 5 Refill(s), Pharmacy: [facility]/pharmacy #[id number], Chronic obstructive pulmonary disease (COPD), 156, cm, 05/23/23 10:02:00 EST, Height, kg, 05/23/23 10:02:00 EST, Dosing Weight Start Date: 05/23/23 Stop Date: 11/19/23 Status: Ordered Start: 11-13-2021 End: 05-10-2023 take 1 puff(s) by inhalation every four hours ProAir HFA MDI (90 mcg/inh) inhalation aerosol 1 puff(s), Inhalation, q4h, # 1 EA, 5 Refill(s), Pharmacy: [facility]/pharmacy #[id number], Chronic obstructive pulmonary disease (COPD), 156, cm, 11/11/22 10:37:00 EDT, Height, kg, 11/11/22 10:37:00 EDT, Dosing Weight Start Date: 11/11/22 Stop Date: 05/10/23 Status: Ordered Start: 11-03-2020 End: 06-01-2021 take 1 puff(s) by inhalation every four hours ProAir HFA MDI (90 mcg/inh) inhalation aerosol 1 puff(s), Inhalation, q4h, # 1 EA, 6 Refill(s), Pharmacy: [facility]/pharmacy #[id number], Chronic obstructive pulmonary disease (COPD), 156.2, cm, 11/03/20 13:54:00 EDT, Height, kg, 11/03/20 13:54:00 EDT, Dosing Weight Start Date: 11/03/20 Stop Date: 06/01/21 Status: Ordered Start: 11-03-2020 End: 06-01-2021 take 1 puff(s) by inhalation every four hours ProAir HFA MDI (90 mcg/inh) inhalation aerosol 1 puff(s), Inhalation, q4h, # 1 EA, 6 Refill(s), Pharmacy: [facility]/pharmacy #[id number], Chronic obstructive pulmonary disease (COPD), 156.2, cm, 11/03/20 13:54:00 EDT, Height, kg, 11/03/20 13:54:00 EDT, Dosing Weight Start Date: 11/03/20 Stop Date: 06/01/21 Status: Ordered take 1 puff(s) by mo uth every four hours albuterol 90 mcg/actuation inhaler INHALE 1 PUFF BY MOUTH EVERY 4 HOURS FOR 30 DAYS Active benzonatate 100 mg oral capsule (1 source) Non-narcotic Antitussive Start: 03-14-2025 take 1 capsule by mouth three times daily as needed for cough calcium chloride 0.0014 meq/ml / potassium chloride [...] 0 Refill(s), 06/14/24 11:24:00 AM EST, Pharmacy: [facility]/pharmacy #[id number], Cellulitis of foot without toes, 157.5, [...] (Therapy completed) cholecalciferol 1.25 mg oral capsule (15 sources) Vitamin D Start: 08-23-2024 End: 02-19-2025 take 1 capsule by mouth once, then take 1 capsule by mouth every month cholecalciferol 1250 mcg (50,000 intl units) oral capsule Dose : 50,000 International_Unit = 1 cap(s), Oral, qmonth, # 4 cap(s), 1 Refill(s), Pharmacy: [facility]/pharmacy #[id number], Vitamin D deficiency, 156.5, cm, 08/23/24 [...] qmonth, # 4 cap(s), 1 Refill(s), Pharmacy: [facility]/pharmacy #[id number], Vitamin D deficiency, 156, cm, 11/28/23 8:56:00 EDT, Height, kg, 11/28/23 8:56:00 EDT, Dosing Weight Start Date: 11/28/23 Stop Date: 05/26/24 Status: Ordered Start: 08-05-2023 take 1 capsule by mo uth every month Cholecalciferol (Vitamin D3) 1,250 mcg (50,000 unit) capsule Active 1250 ug PO .MONTHLY August 05, 2023 1:00am supplement Complies with drug therapy Start: 05-23-2023 End: 11-19-2023 cholecalciferol 1250 mcg (50 ,000 intl units) oral capsule Dose : 50,000 International_Unit = 1 cap(s), Oral, qmonth, # 4 cap(s), 1 Refill(s), Pharmacy: [facility]/pharmacy #[id number], Vitamin D deficiency, 156, cm, 05/23/23 10:02:00 EST, Height, kg, 05/23/23 10:02:00 EST, Dosing Weight Start Date: 05/23/23 Stop Date: 11/19/23 Status: Ordered Start: 09-13-2019 End: 08-05-2023 Cholecalciferol (Vitamin D3) 2,000 UNIT capsule Discontinued 1000 U PO FR September 13, 2019 12:00am August 05, 2023 7:06pm Start: 09-13-2019 End: 08-05-2023 Cholecalciferol (Vitamin D3) Discontinued 1000 UNIT PO FR September 12, 2019 11:00pm August 05, 2023 6:06pm take 1 capsule by mo [facility] every month cholecalciferol (Vitamin D-3) 50,000 [...] day. 60 capsule 11/07/2023 12/07/2023 Active doxycycline monohydrate 100 mg oral capsule (2 sources) Tetracycline-clas s Drug Start: 03-14-2025 take 1 capsule by mouth twice daily Start: 06-08-2024 End: 06-15-2024 doxycycline hyclate 100 mg o ral capsule Dose : 100 mg = 1 cap(s), Oral, BID, X 7 day(s), # 14 cap(s), 0 Refill(s), 06/15/24 4:34:00 PM EST, 50 Start Date: 06/08/24 Stop Date: 06/15/24 Status: Ordered 2 ml droperidol 2.5 mg/ml injection (3 sources) Dopamine-2 Receptor Antagonist Start: 03-07-2024 0.625 mg, intravenou s, Once as needed, nausea/vomiting, second line, Starting [...] qDay, # 90 tab(s), 1 Refill(s), Pharmacy: [facility]/pharmacy #[id number], 156, cm, 05/23/23 10:02:00 EST, Height, [...] ml insulin degludec 200 unt/ml pen injector (15 sources) Insulin Analog Start: 11-29-2024 End: 05-28-2025 [...] fill., # 9 mL, 1 Refill(s), Pharmacy: [facility]/pharmacy #[id number], DM type 2, goal HbA1c Start [...] fill., # 9 mL, 1 Refill(s), Pharmacy: [facility]/pharmacy #[id number], DM type 2, goal HbA1c Start Date: 09/14/23 Stop Date: 11/13/23 Status: Ordered Start: 09-12-2023 Insulin Deglud ec (Tresiba U-100 Insulin) 100 unit/mL solution Active 12 U SC AT BEDTIME September 12, 2023 12:00am DM Complies with drug therapy 3 ml insulin glargine 100 unt/ml pen [...] qDay, # 90 tab(s), 1 Refill(s), [id number], Hyperlipidemia LDL goal Start Date: 08/23/24 Status: Ordered Medication Dispense Status: Completed Quantity: 90.0 Unit: tab(s) Total Allowed Fills: 2 Fills Dispensed: 0 Indications: Hyperlipidemia, unspecified; Start: 05-23-2023 End: 05-26-2024 losartan 25 mg oral tablet D ose : 25 mg = 1 tab(s), Oral, qDay, # 90 tab(s), 1 Refill(s), [id number], Hyperlipidemia LDL goal Start Date: 11/28/23 Stop Date: 05/26/24 Status: Ordered Start: 11-11-2022 End: 05-10-2023 losartan 25 mg oral tablet D ose : 25 mg = 1 tab(s), Oral, qDay, # 90 tab(s), 1 Refill(s), [id number], Hyperlipidemia LDL goal Start Date: 11/11/22 Stop Date: 05/10/23 Status: Ordered Start: 11-03-2020 End: 11-07-2022 losartan 25 mg oral tablet D ose : 25 mg = 1 tab(s), Oral, qDay, # 90 tab(s), 1 Refill(s), [id number], Hyperlipidemia LDL goal Start Date: 05/11/22 Stop Date: 11/07/22 Status: Ordered Meperidine (1 source) Opioid Agonist Start: 12-26-2023 12.5 mg, intravenous, Every 10 min PRN, shivering, Starting on Tue12/26/23 at 1407, Recovery (only) metFORMIN hydrochloride 500 mg oral tablet (20 sources) Biguanide Start: 03-14-2025 take 1 tablet by mouth twice daily Metformin 500 mg tablet Active 500 mg PO TWICE A DAY March 14, 2025 12:00am Complies with drug therapy Start: 11-01-2024 metFORMIN 500 mg oral tablet (IR) Dose : 500 mg = 1 tab(s), Oral, BID, # 180 tab(s), 1 Refill(s), Pharmacy: [facility]/pharmacy #[id number], 156.5, cm, 08/23/24 7:58:00 EST, Height, [...] Date: 09/14/23 Status: Ordered Start: 08-21-2023 End: 03-14-2025 take 1 tablet by mouth twice daily Metformin 1,000 mg tablet Discontinued 1000 mg PO TWICE A DAY 60 0 August 21, 2023 1:00am March 14, 2025 2:41am DM Start: 08-05-2023 take 750 mg by mouth once [place] Metformin Active 750 MG PO DAILY August 05, 2023 12:00am Start: 11-11-2022 metFORMIN 750 mg oral tablet EXTENDED RELEASE Dose : 750 mg = 1 tab(s), Oral, qDay, # 90 tab(s), 1 Refill(s), Pharmacy: [facility]/pharmacy #[id number], DM type 2, goal HbA1c Start Date: 11/11/22 Status: Ordered Start: 05-11-2022 MetFORMIN (Eqv -Glucophage XR) 500 mg oral tablet, EXTENDED RELEASE Dose : 500 mg = 1 tab(s), Oral, qDay, # 90 tab(s), 2 Refill(s), Pharmacy: [facility]/pharmacy #[id number], 156, cm, 05/11/22 10:55:00 EST, Height, kg, 05/11/22 10:55:00 EST, Dosing Weight Start Date: 05/11/22 Status: Ordered Start: 11-03-2020 End: 02-09-2022 MetFORMIN (Eqv-Glucophage XR ) 500 mg oral tablet, EXTENDED RELEASE Dose : 500 mg = 1 tab(s), Oral, qDay, # 90 tab(s), 2 Refill(s), Pharmacy: [facility]/pharmacy #[id number], 156, cm, 11/13/21 14:14:00 EDT, Height Start Date: 11/17/21 Status: Ordered Start: 09-13-2019 End: 08-05-2023 take 2 tablets by mouth at bedtime Metformin 500 MG tablet Discontinued 1000 mg PO AT BEDTIME September 13, 2019 12:00am August 05, 2023 7:06pm Start: 09-13-2019 End: 08-05-2023 take 1000 mg [...] insulin, # 1 EA, 11 Refill(s), Pharmacy: [facility]/pharmacy #[id number], Uncontrolled diabetes mellitus with hyperglycemia Diabetic [...] insulin, # 1 EA, 11 Refill(s), Pharmacy: [facility]/pharmacy #[id number], Uncontrolled diabetes mellitus with hyperglycemia Diabetic [...] qHS, # 90 tab(s), 1 Refill(s), Pharmacy: [facility]/pharmacy #[id number], 156.5, cm, 08/23/24 7:58:00 EST, Height, kg, 08/23/24 7:58:00 EST, Dosing Weight Start Date: 08/23/24 Status: Ordered Medication Dispense Status: Completed Quantity: 90.0 Unit: tab(s) Total Allowed Fills: 2 Fills Dispensed: 0 Start: 11-28-2023 simvastatin 40 mg oral tablet Dose : 40 mg = 1 tab(s), Oral, qHS, # 90 tab(s), 1 Refill(s), Pharmacy: [facility]/pharmacy #[id number], 156, cm, 11/28/23 8:56:00 EDT, Height, kg, 11/28/23 8:56:00 EDT, Dosing Weight Start Date: 11/28/23 Status: Ordered Start: 09-13-2019 End: 05-12-2022 simvastatin 40 mg oral table t Dose : 40 mg = 1 tab(s), Oral, qHS, # 90 tab(s), 1 Refill(s), Pharmacy: [facility]/pharmacy #[id number], 156, cm, 11/27/23 10:02:00 EST, Height, kg, 05/23/23 10:02:00 EST, [...] Refill(s) Start Date: 08/23/23 Status: Ordered Vit C,T-Em-Jcbhi-Lutein-Ze axan (Preservision Areds-2) 250-90-40-1 mg capsule (3 sources) Start: 01-13-2021 Vit C,F-Qv-Sknmt-Lutei n-Zeaxan (Preservision Areds-2) 250-90-40-1 mg capsule Active [...] yoli th every four hours as needed 650 mg, [...] Yes calcium carbonate 1500 mg oral tablet (4 sources) Start: 09-13-2019 End: 12-11-2019 Calcium Carbonate 600 MG tablet Discontinued 2 {tbl} PO DAILY September 13, 2019 12:00am December 11, 2019 12:11pm celecoxib 200 mg oral capsule (1 source) [...] / losartan potassium 100 mg oral tablet (4 sources) Thiazide Diuretic, Angiotensin 2 Receptor Jaquelin Start: 09-13-2019 End: 08-05-2023 Losartan-Hydroch lorothiazide 1 EACH tablet Discontinued 1 {tbl} PO DAILY September 13, 2019 12:00am August 05, 2023 7:06pm Start: 09-13-2019 End: 08-05-2023 take 1 tablet by mouth once daily Losartan-Hydrochlorothiazide Discontinue d 1 TABLET PO DAILY September 12, 2019 [...] BID, # 14 tab(s), 0 Refill(s), Pharmacy: [facility]/pharmacy #[id number], Magnesium deficiency syndrome, 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, cm, 09/14/23 [...] hernia 08-23-2023 Episodic Bacterial infection; unspecified site (7 sources) Bacteremia caused by Gram-negative bacteria; Translations: [Bacteremia] 08-07-2023 Episodic Blindness and vision defects (9 sources) Visual impairment; Translations: [Unspecified visual loss] Onset: 11-07-2023 11-07-2023 Chronic Calculus of urinary tract (7 sources) Ureteric stone; Translations: [Calculus of ureter] [...] pulmonary disease, unspecified] Onset: 05-05-2023 03-02-2019 Chronic Chronic obstructive pulmonary disease and bronchiectasis (1 source) Bronchitis; Translations: [Bronchitis, not specified as acute or chronic] 03-14-2025 Episodic Complications of surgical procedures or medical care (12 sources) 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 Chronic Deficiency and other anemia (7 sources) Anemia 05-23-2023 Episodic Diabetes mellitus with complications (6 sources) Diabetic ketoacidosis 08-23-2023 Chronic Diabetes mellitus without complication (20 sources) Type 2 diabetes mellitus; Translations: [Diabetes mellitus] Onset: 11-03-2023 12-07-2019 Chronic Diabetes mellitus without complication (7 sources) Hyperglycemia; Translations: [Hyperglycemia, unspecified] 08-05-2023 Episodic Diseases of white blood cells (20 sources) Leukocytosis; Translations: [Elevated white blood cell [...] (7 sources) Large liver 08-23-2023 Episodic Other lower respiratory disease (1 source) Hemoptysis; Translations: [Hemoptysis] 03-14-2025 Episodic Other non-traumatic joint disorders (3 sources) Arthralgia of the ankle and/or foot 06-04-2024 Episodic Other nutritional; endocrine; and metabolic disorders (6 sources) Hypomagnesemia 09-13-2023 Chronic Other nutritional; endocrine; and metabolic disorders (4 sources) Hypomagnesemia; Translations: [Hypomagnesemia] Onset: 09-22-2023 Chronic Other nutritional; endocrine; and metabolic disorders (7 sources) Underweight 08-23-2023 Episodic Other screening for suspected conditions (not mental disorders or infectious disease) (20 sources) Patient encounter status; Translations: [Encounter for screening for malignant neoplasm of respiratory organs] Onset: 11-07-2023 01-13-2021 Episodic Residual codes; unclassified (12 sources) Postmenopausal state 01-31-2020 Episodic Retinal detachments; defects; vascular occlusion; and retinopathy (9 sources) Degenerative disorder of macula ; Translations: [Unspecified macular degeneration] Onset: 11-07-2023 11-07-2023 Chronic Screening and history of mental health and substance abuse codes (12 sources) Tobacco use and exposure - finding 03-01-2019 Chronic Septicemia (except in labor) (8 sources) Sepsis; Translations: [Sepsis, unspecified organism] 08-07-2023 Episodic Skin and subcutaneous tissue infections (3 sources) Cellulitis; Translations: [Cellulitis, unspecified] Onset: 06-08-2024 Episodic Substance-related disorders (13 sources) Tobacco dependence, continuous; Translations: [Nicotine dependence, unspecified, with unspecified nicotine-induced disorders] Onset: 11-17-2023 01-13-2021 Chronic Unclassified (20 sources) Patient encounter status 02-09-2021 Unclassified (10 sources) Vaccination needed 03-19-2022 Unclassified (1 source) History of nephrectomy 11-29-2024 Urinary tract infections (7 sources) Urinary tract infectious disease; Translations: [Urinary tract infection, site not specified] 08-05-2023 Episodic Viral infection (7 sources) Post-viral disorder 08-23-2023 Episodic Past or Other Problems Problem Classification Problem Date Documented Da te Episodic/Chronic Intestinal obstruction without hernia (9 sources) Large bowel obstruction; Translations: [Unspecified intestinal obstruction, unspecified as to partial versus complete obstruction] Onset: 11-07-2023 11-07-2023 Episodic Other aftercare (2 sources) alf (current) use of insulin; 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 (Multi)] Onset: 11-03-2023 Episodic Other diseases of kidney and ureters (2 sources) Disorder of kidney and ureter, unspecified; Translations: [Disorder of kidney and ureter, unspecified] Onset: 05-05-2023 Episodic Unclassified (10 sources) Onset: 10-14-2023 10-14-2023 Results Test Name Value Interpretation Reference Range Facility Absolute lymphocyte countOrd ered By: Andrez Arias on 03-14-2025 Lymphocytes Auto (Unsp spec) [#/Vol] 3.83 10*3/uL 0.83-4.51 [facility] Absolute neutrophil countOrd ered By: Andrez Arias on 03-14-2025 Neutrophils (Bld) [#/Vol] 7.4 10*3/uL 2.0-7.7 [facility] Activated partial thrombopla stin time (aPTT) in platelet poor plasma by coagulation aOrdered By: Andrez Arias on 03-14-2025 aPTT Coag (PPP) [Time] 23.0 s Low 24.1-36.2 [facility] Anion gap in Serum or Plasma Ordered By: Andrez Arias on 03-14-2025 Anion gap [Moles/Vol] 12 mmol/L 5-15 [facility] Automated lymphocyte count a s percentage of total leukocytesOrdered By: Andrez Arias on 03-14-2025 Lymphocytes/100 WBC Auto (Unsp spec) 31.7 % 19-41 [facility] BUN/creatinine ratioOrdered By: Andrez Arias on 03-14-2025 Urea nitrogen/Creatinine [Mass ratio] 21.1 mg/mg High 10-20 [facility] Basic Metabolic Profile (BMP )on 03-14-2025 BUN/CRE 21.1 RATIO High 10-20 [facility] Comment on above: Performed By: #### L 300.4310, L100.0100, L503.6005, L500.2500, L300.3900 #### [facility] [address] [place], [address] Calcium [Mass/Vol] 9.1 mg/dL Normal 7.6-11.0 [facility] Comment on above: Performed By: #### L 300.4310, L100.0100, L503.6005, L500.2500, L300.3900 #### [facility] [address] [place], [address] Chloride [Moles/Vol] 107 mmol/L Normal 98-108 [facility] Comment on above: Performed By: #### L 300.4310, L100.0100, L503.6005, L500.2500, L300.3900 #### [facility] [address] [place], [address] CO2 [Moles/Vol] 21.3 mmol/L Normal 21.0-32.0 [facility] Comment on above: Performed By: #### L 300.4310, L100.0100, L503.6005, L500.2500, L300.3900 #### [facility] [address] [place], [address] Creatinine [Mass/Vol] 0.77 mg/dL Normal 0.70-1.20 [facility] Comment on above: Performed By: #### L 300.4310, L100.0100, L503.6005, L500.2500, L300.3900 #### [facility] [address] [place], [address] ECRCL 41.90 ml/min Low 50-250 [facility] Comment on above: Performed By: #### L 300.4310, L100.0100, L503.6005, L500.2500, L300.3900 #### [facility] [address] [place], [address] GAP 12 Normal 5-15 [facility] Comment on above: Performed By: #### L 300.4310, L100.0100, L503.6005, L500.2500, L300.3900 #### [facility] [address] [place], [address] GFR/1.73 sq M.predicted among non-blacks MDRD (S/P/Bld) [Vol rate/Area] 79 mL/min/{1.73_m2} Normal >60 [facility] Comment on above: Result Comment: mL/m in/1.73m2 CKD-EPI Creatinine Equation (2020) Performed By: #### L 300.4310, L100.0100, L503.6005, L500.2500, L300.3900 #### [facility] [address] [place], [address] Glucose [Mass/Vol] 98 mg/dL Normal 70-99 [facility] Comment on above: Performed By: #### L 300.4310, L100.0100, L503.6005, L500.2500, L300.3900 #### [facility] [address] [place], [address] Potassium [Moles/Vol] 4.0 mmol/L Normal 3.3-5.1 [facility] Comment on above: Performed By: #### L 300.4310, L100.0100, L503.6005, L500.2500, L300.3900 #### [facility] [address] [place], [address] Sodium [Moles/Vol] 140 mmol/L Normal 133-145 [facility] Comment on above: Performed By: #### L 300.4310, L100.0100, L503.6005, L500.2500, L300.3900 #### [facility] [address] [place], [address] Urea nitrogen [Mass/Vol] 16 mg/dL Normal 4-19 [facility] Comment on above: Performed By: #### L 300.4310, L100.0100, L503.6005, L500.2500, L300.3900 #### [facility] [address] [place], [address] Basophil percentageOrdered B y: Andrez Arias on 03-14-2024 Basophils/100 WBC (Bld) 0.4 % 0-1 [facility] CBC W/Diff, Automatedon 02-25-2024 Absolute Lymph 3.83 X10 3/uL Normal 0.83-4.51 [facility] Comment on above: Performed By: #### L 300.4310, L100.0100, L503.6005, L500.2500, L300.3900 #### [facility] [address] [place], [address] Absolute Neut 7.4 X10 3/uL Normal 2.0-7.7 [facility] Comment on above: Performed By: #### L 300.4310, L100.0100, L503.6005, L500.2500, L300.3900 #### [facility] [address] [place], [address] Basophils/100 WBC (Bld) 0.4 % Normal 0-1 [facility] Comment on above: Performed By: #### L 300.4310, L100.0100, L503.6005, L500.2500, L300.3900 #### [facility] [address] [place], [address] Eosinophils/100 WBC (Bld) 0.2 % Normal 0-5 [facility] Comment on above: Performed By: #### L 300.4310, L100.0100, L503.6005, L500.2500, L300.3900 #### [facility] [address] [place], [address] Erythrocyte distribution width (RBC) [Ratio] 12.8 % Normal 11.6-14.6 [facility] Comment on above: Performed By: #### L 300.4310, L100.0100, L503.6005, L500.2500, L300.3900 #### [facility] [address] [place], [address] Hematocrit (Bld) [Volume fraction] 43.9 % Normal 37-47 [facility] Comment on above: Performed By: #### L 300.4310, L100.0100, L503.6005, L500.2500, L300.3900 #### [facility] [address] [place], [address] Hemoglobin (Bld) [Mass/Vol] 14.9 g/dL Normal 12.0-15.0 [facility] Comment on above: Performed By: #### L 300.4310, L100.0100, L503.6005, L500.2500, L300.3900 #### [facility] [address] [place], [address] IG% 0.300 Normal 0.0-0.9 [facility] Comment on above: Result Comment: IG% - Immature Granulocytes (promyelocytes, myelocytes and metamyelocytes) > 1% indicates that a LEFT SHIFT is Present. Performed By: #### L 300.4310, L100.0100, L503.6005, L500.2500, L300.3900 #### [facility] [address] [place], [address] Lymphocytes/100 WBC (Bld) 31.7 % Normal 19-41 [facility] Comment on above: Performed By: #### L 300.4310, L100.0100, L503.6005, L500.2500, L300.3900 #### [facility] [address] [place], [address] MCH (RBC) [Entitic mass] 31.0 pg Normal 27.0-32.0 [facility] Comment on above: Performed By: #### L 300.4310, L100.0100, L503.6005, L500.2500, L300.3900 #### [facility] [address] [place], [address] MCHC (RBC) [Mass/Vol] 33.9 g/dL Normal 32-36 [facility] Comment on above: Performed By: #### L 300.4310, L100.0100, L503.6005, L500.2500, L300.3900 #### [facility] [address] [place], [address] MCV (RBC) [Entitic vol] 91.3 fL Normal 81-99 [facility] Comment on above: Performed By: #### L 300.4310, L100.0100, L503.6005, L500.2500, L300.3900 #### [facility] [address] [place], [address] Monocytes/100 WBC (Bld) 5.9 % Normal 0-10 [facility] Comment on above: Performed By: #### L 300.4310, L100.0100, L503.6005, L500.2500, L300.3900 #### [facility] [address] [place], [address] Neutrophils/100 WBC (Bld) 61.5 % Normal 47-70 [facility] Comment on above: Performed By: #### L 300.4310, L100.0100, L503.6005, L500.2500, L300.3900 #### [facility] [address] [place], [address] Nucleated RBC (Bld) [#/Vol] 0 10*3/uL Normal 0-5 [facility] Comment on above: Performed By: #### L 300.4310, L100.0100, L503.6005, L500.2500, L300.3900 #### [facility] [address] [place], [address] Platelet mean volume (Bld) [Entitic vol] 9.3 fL Normal 6.2-12.0 [facility] Comment on above: Performed By: #### L 300.4310, L100.0100, L503.6005, L500.2500, L300.3900 #### [facility] [address] [place], [address] Platelets (Bld) [#/Vol] 273 10*3/uL Normal 150-450 [facility] Comment on above: Performed By: #### L 300.4310, L100.0100, L503.6005, L500.2500, L300.3900 #### [facility] [address] [place], [address] RBC (Bld) [#/Vol] 4.81 10*6/uL Normal 4.2-5.4 [facility] Comment on above: Performed By: #### L 300.4310, L100.0100, L503.6005, L500.2500, L300.3900 #### [facility] [address] [place], [address] RDW SD 42.8 fl Normal 35.1-43.9 [facility] Comment on above: Performed By: #### L 300.4310, L100.0100, L503.6005, L500.2500, L300.3900 #### [facility] [address] [place], [address] WBC (Bld) [#/Vol] 12.1 10*3/uL High 4.4-11.0 [facility] Comment on above: Performed By: #### L 300.4310, L100.0100, L503.6005, L500.2500, L300.3900 #### [facility] [address] [place], [address] CTA Chest W/WO Contraston CTA Chest W/WO Contrast [facility] Imaging Services [address] [place] [address] CTA Chest W/WO Contrast MR#: [id number] Acct: [id number] Name: MAYTE SWEET Rep #: [id number] : 1945 F 80 From: Leeroy cooper MD PCP: Adelina Guallpa, SURGERY NURSE-C Status: [facility] Study: CTA Chest W/WO Contrast Date of Exam: 03/14/25 Exam# [id number] Ordering Dr: Andrez Arias DO PROCEDURE: CTA CHEST W/WO CONTRAST 03/14/2025 REASON FOR EXAM: HEMOPTYSIS TECHNIQUE: Procedure Code: CTCTACHWW Modality: CT Procedure: CTA CHEST W/WO CONTRAST Multiplanar Sagittal and Coronal images were obtained. CONTRAST: OMNIPAQUE 350 VOLUME: 100 mL One or more dose reduction techniques were used (e.g., Automated exposure control, adjustment of the mA and/or kV according to patient size, use of iterative reconstruction technique). RADIATION DOSE SUMMARY: CTDlvol: 3.38 mGy DLP: 123 mGycm COMPARISON: CT SCAN ON 01/13/2021. FINDINGS: Unchanged moderate sliding hiatal hernia. Unchanged multiple pulmonary blebs. Unchanged 1.8 cm nodule arising from the posterior aspect of the right thyroid lobe. No tracheal narrowing or deviation is seen. Mild bilateral peribronchial interstitial thickening, probably bronchitis. Normal enhancement of the main pulmonary artery and right and left pulmonary arteries. Normal enhancement of the bilateral peripheral pulmonary arteries. There is no demonstrated pulmonary embolism. Normal thoracic aorta and visualized great vessels. There is no demonstrated aortic dissection. Normal heart and pericardium. Normal mediastinum. Normal hilar regions. Normal visualized trachea and thickened bronchi. Normal pleura. Prior cholecystectomy. CT/CTA Chest W/WO Contrast IMPRESSION: NO demonstrated pulmonary embolism or arterial dissection. Unchanged moderate sliding hiatal hernia. Unchanged multiple pulmonary blebs. Unchanged 1.8 cm nodule arising from the posterior aspect of the right thyroid lobe. No tracheal narrowing or deviation is seen. Mild bilateral peribronchial interstitial thickening, probably bronchitis. Reading Location: [place] [address] CC: SURGERY NURSEPremaC Adelina Guallpa; Andrez Arias DO Top Collar Maker: Signed Normal [facility] Carbon dioxide, total [Moles /volume] in Central venous bloodOrdered By: Andrez Arias on 03-14-2025 CO2 [Moles/Vol] 21.3 mmol/L 21.0-32.0 [facility] Chloride assayOrdered By: Yudith Arias on 03-14-2025 Chloride [Moles/Vol] 107 mmol/L 98-108 [facility] Emergency Department Summary on 03-14-2025 Emergency Department Summary [facility] Medical Records Department [address] [place] [address] Emergency Department Summary 03/14/25 MR#: [id number] Acct: [id number] Name: MAYTE SWEET Rep #: [id number] : 1945 80 From: Andrez Arias DO PCP: MENDEZ Cash Status:DEP ER Location: ED HPI History of Present Illness Chief Complaint: Cough Informant: patient and family Narrative Narrative: Patient is a 80-year-old female with past medical history of hypertension hyperlipidemia insulin- dependent diabetes and COPD. She states she has smoked roughly a pack a day for 50 years but does not require supplemental oxygen at baseline. She states that over the last 2 to 3 days she has had subjective chills with cough and this has been productive of blood. She denies any history of bleeding disorder or blood thinner use. She denies any known sick contacts. She states that symptoms have not worsened but they have also not improved and she was telling her family about the symptoms and they recommended she come in for evaluation. [facility] Medical History Wears glasses Easy bruising Dietary restriction Leg cramps History of rheumatic fever Hypertension Vision loss of right eye Vision loss of left eye Anemia Osteoporosis Smoker Tobacco use disorder, continuous Encounter for screening for malignant neoplasm of lung in current smoker with 30 pack year history or greater Bowel obstruction Vitamin D deficiency COPD (chronic obstructive pulmonary disease) Hyperlipidemia Diabetes Home Medications ???Medication ???Instructions ???Recorded ???Last Taken ???Type simvastatin 40 mg tablet 40 mg PO QHS cholesterol 09/13/19 Unknown History cholecalciferol (vitamin D3) 1,250 1,250 mcg PO .MONTHLY supplement 08/05/23 Unknown History mcg (50,000 unit) capsule losartan 25 mg tablet 25 mg PO DAILY bp 08/05/23 Unknown History insulin degludec 100 unit/mL 12 unit subcut QHS DM 09/12/23 Unk nown History subcutaneous solution (Tresiba U-100 Insulin) benzonatate 100 mg capsule 100 mg PO TID PRN cough #30 caps 0 03/14/25 Unknown Rx doxycycline monohydrate 100 mg 100 mg PO BID 7 days #14 CAPSULES 03/14/25 Unknown Rx capsule metformin 500 mg tablet 500 mg PO BID 03/14/25 Unknown His tory Allergy/AdvReac Type Severity Reaction Status Date / Time No Known Allergies Allergy Verified 03/14/25 01:04 Family History Father CAD (coronary artery disease) Myocardial infarction Osteoarthritis Brother Multiple myeloma older younger brother Brain aneurysm younger brother Surgical History History of cystoscopy History of cholecystectomy History of intestinal surgery History of hysterectomy History of removal of ovarian cyst Social History Smoking Status: Current every day smoker tobacco type: cigarettes Tobacco: How many years used: 25 Electronic Cigarette Use: not used second hand exposure: Yes quit status: considering quitting ROS ROS ED Constitutional Constitutional ED: Reports chills and subjective; Denies fever(s) Eyes Eyes: Denies change in vision ENT ENT ED: Reports rhinorrhea; Denies sore throat Cardiovascular Cardiovascular: Denies chest pain, palpitations or racing heartbeat Respiratory/Chest Respiratory/Chest: Reports cough and other Details: Positive hemoptysis ; Denies dyspnea Gastrointestinal Gastrointestinal: Denies abdominal pain, diarrhea, melena, nausea or vomiting Genitourinary Genitourinary ED: Denies dysuria or hematuria Musculoskeletal Musculoskeletal: Denies myalgias Integumentary Denies rash Neurologic Neurologic: Denies headache(s) or weakness Hematologic/Lymphati c Hematologic/Lymphati c: Denies easy bleeding or easy bruising EXAM Physical Exam Const Vital Signs: 03/14/25 01:04 03/14/25 01:06 03/14/25 01:15 Temperature 97.5 F L 97.5 F L Temperature Source Oral Oral Pulse Rate 78 80 Respiratory Rate 20 H 20 H Respiratory Effort Normal Respiratory Depth Normal Respiratory Pattern Tachypnea Blood Pressure 180/80 H 180/80 H Blood Pressure Mean 113 113 Pulse Ox 96 95 Oxygen Delivery Method Room Air Room Air Room Air 03/14/25 02:06 03/14/25 02:56 Temperature 97.6 F L 98 F Temperature Source Oral Pulse Rate 81 69 Respiratory Rate 18 18 Respiratory Effort Respiratory Depth Respiratory Pattern Blood Pressure 196/93 H 160/92 H Blood Pressure Mean 127 114 Pulse Ox 98 95 Oxygen Delivery Method Room Air Positive well nourished and well developed General Appearance ED: well developed; Negative f (more content not included)... Normal [facility] Eosinophil percentageOrdered By: Andrez Arias on 03-14-2025 Eosinophils/100 WBC (Bld) 0.2 % 0-5 [facility] Erythrocyte distribution wid th ratioOrdered By: Andrez Arias on 03-14-2025 Erythrocyte distribution width (RBC) [Ratio] 12.8 % 11.6-14.6 [facility] Erythrocyte distribution wid th standard deviationOrdered By: Andrez Arias on 03-14-2025 Erythrocyte distribution width (RBC) [Ratio] 42.8 fl 35.1-43.9 [facility] Glomerular filtration rate ( GFR) estimation/1.73 sq m using serum, plasma, or whole bOrdered By: Andrez Arias on 03-14-2025 GFR/1.73 sq M.predicted among non-blacks MDRD (S/P/Bld) [Vol rate/Area] 79 mL/min/{1.73_m2} >60 [facility] Comment on above: mL/min/1.73m2 CKD-EP I Creatinine Equation (2020) Hematocrit Auto (Bld) [Volum e fraction]Ordered By: Andrez Arias on 03-14-2025 Hematocrit (Bld) [Volume fraction] 43.9 % 37-47 [facility] Hemoglobin measurementOrdere d By: Andrez Arias on 03-14-2025 Hemoglobin (Bld) [Mass/Vol] 14.9 g/dL 12.0-15.0 [facility] Immature granulocytes/100 WB C Auto (Bld)Ordered By: Andrez Arias on 03-14-2025 Immature granulocytes/100 WBC (Bld) 0.300 % 0.0-0.9 [facility] Comment on above: IG% - Immature Granu locytes (promyelocytes, myelocytes and metamyelocytes) > 1% indicates that a LEFT SHIFT is Present. Influenza virus A and B and SARS-CoV-2 (COVID-19) and Respiratory syncytial virus RNAOrdered By: Andrez Arias on 03-14-2025 SARS-CoV-2 (COVID-19) RNA DONAVAN+probe Ql (Unsp spec) [facility] International normalized rat io (INR) calculationOrdered By: Andrez Arias on 03-14-2025 INR Coag (Bld) [Relative time] 1.0 {INR} [facility] Lactic Acidon 03-14-2025 Lactate [Moles/Vol] 1.4 mmol/L Normal 0.0-2.0 [facility] Comment on above: Order Comment: Y Performed By: #### L 300.4310, L100.0100, L503.6005, L500.2500, L300.3900 #### [facility] [address] [address] [place], [place], [id number] Lactic acid measurementOrder ed By: Andrez Arias on 03-14-2025 Lactate [Moles/Vol] 1.4 mmol/L 0.0-2.0 [facility] M100.678on 03-14-2025 M100.678 SARS-CoV-2 (COVID 19) Negative INFLUENZA A Negative INFLUENZA B Negative RSV PCR Negative Normal [facility] Comment on above: Performed By: #### M 100.678 #### [facility] [address] [facility] [place], [address] MCV (mean corpuscular volume ) determinationOrdered By: Andrez Arias on 03-14-2025 MCV (RBC) [Entitic vol] 91.3 fL 81-99 [facility] Mean corpuscular hemoglobin (MCH) determinationOrdered By: Andrez Arias on 03-14-2025 MCH (RBC) [Entitic mass] 31.0 pg 27.0-32.0 [facility] Mean corpuscular hemoglobin concentration (MCHC) determinationOrdered By: Andrez Arias on 03-14-2025 MCHC (RBC) [Mass/Vol] 33.9 g/dL 32-36 [facility] Mean platelet volume determi nationOrdered By: Andrez Arias on 03-14-2025 Platelet mean volume (Bld) [Entitic vol] 9.3 fL 6.2-12.0 [facility] Monocyte percentageOrdered B y: Andrez Arias on 03-14-2025 Monocytes/100 WBC (Bld) 5.9 % 0-10 [facility] Neutrophil percentageOrdered By: Andrez Arias on 03-14-2025 Neutrophils/100 WBC (Bld) 61.5 % 47-70 [facility] Nucleated red blood cell per centageOrdered By: Andrez Arias on 03-14-2025 Nucleated RBC/100 WBC (Bld) [Ratio] 0 % 0-5 [facility] Partial Thromboplast Timeon 03-14-2025 aPTT Coag (Bld) [Time] 23.0 s Low 24.1-36.2 [facility] Comment on above: Performed By: #### L 300.4310, L100.0100, L503.6005, L500.2500, L300.3900 #### [facility] [address] [place], [address] Platelet countOrdered By: Yudith Arias on 03-14-2025 Platelets (Bld) [#/Vol] 273 10*3/uL 150-450 [facility] Potassium measurement (mass/ volume)Ordered By: Andrez Arias on 03-14-2025 Potassium (Unsp spec) [Mass/Vol] 4.0 mmol/L 3.3-5.1 [facility] Prothrombin Time w/INRon INR Coag (PPP) [Relative time] 1.0 {INR} Normal [facility] Comment on above: Performed By: #### L 300.4310, L100.0100, L503.6005, L500.2500, L300.3900 #### [facility] [address] [place], [address] PT Coag (PPP) [Time] 13.4 s Normal 11.7-14.9 [facility] Comment on above: Performed By: #### L 300.4310, L100.0100, L503.6005, L500.2500, L300.3900 #### [facility] [address] [place], [place], [id number] [phone] Prothrombin timeOrdered By: Andrez Arias on 03-14-2025 PT Coag (PPP) [Time] 13.4 s 11.7-14.9 [facility] RBC Auto (Bld) [#/Vol]Ordere d By: Andrez Arias on 03-14-2025 RBC (Bld) [#/Vol] 4.81 10*6/uL 4.2-5.4 [facility] Serum creatinine measurement (mass/volume)Ordered By: Andrez Arias on 03-14-2025 Creatinine [Mass/Vol] 0.77 mg/dL 0.70-1.20 [facility] Serum glucose measurement (m ass/volume)Ordered By: Andrez Arias on 03-14-2025 Glucose [Mass/Vol] 98 mg/dL 70-99 [facility] Serum or plasma calcium delvis urement (mass/volume)Ordered By: Andrez Arias on 03-14-2025 Calcium [Mass/Vol] 9.1 mg/dL 7.6-11.0 [facility] Serum or plasma urea nitroge n measurement (mass/volume)Ordered By: Andrez Arias on 03-14-2025 Urea nitrogen [Mass/Vol] 16 mg/dL 4-19 [facility] Sodium levelOrdered By: Marcelino Arias on 03-14-2025 Sodium [Moles/Vol] 140 mmol/L 133-145 [facility] White blood cell (WBC) count Ordered By: Andrez Arias on 03-14-2025 WBC (Bld) [#/Vol] 12.1 10*3/uL High 4.4-11.0 [facility] .Auto Diffon 02-12-2025 Basophil, Absolute 0.0 10 3/mcL Normal 0.0-0.3 [facility] Comment on above: Performed By: #### G FR, ADIFF, LIPID, MG, A1C, CBC, VIDH, CMP, ANEU #### [address] [address] #### PTH #### [address] [address] Basophils/100 WBC (Bld) 0.4 % Normal 0.0-2.5 [facility] Comment on above: Performed By: #### G FR, ADIFF, LIPID, MG, A1C, CBC, VIDH, CMP, ANEU #### [address] [address] #### PTH #### [address] [address] Eosinophil, Absolute 0.0 10 3/mcL Normal 0.0-0.7 [facility] Comment on above: Performed By: #### G FR, ADIFF, LIPID, MG, A1C, CBC, VIDH, CMP, ANEU #### [address] [address] #### PTH #### [address] [address] Eosinophils/100 WBC (Bld) 0.1 % Normal 0.0-6.0 [facility] Comment on above: Performed By: #### G FR, ADIFF, LIPID, MG, A1C, CBC, VIDH, CMP, ANEU #### [address] [address] #### PTH #### [address] [address] Lymphocyte, Absolute 3.0 10 3/mcL Normal 0.9-4.3 [facility] Comment on above: Performed By: #### G FR, ADIFF, LIPID, MG, A1C, CBC, VIDH, CMP, ANEU #### [address] [address] #### PTH #### [address] [address] Lymphocytes/100 WBC (Bld) 25.4 % Normal 20.0-40.0 [facility] Comment on above: Performed By: #### G FR, ADIFF, LIPID, MG, A1C, CBC, VIDH, CMP, ANEU #### [address] [address] #### PTH #### [address] [address] Monocyte, Absolute 0.6 10 3/mcL Normal 0.1-1.4 [facility] Comment on above: Performed By: #### G FR, ADIFF, LIPID, MG, A1C, CBC, VIDH, CMP, ANEU #### [address] [address] #### PTH #### [address] [address] Monocytes/100 WBC (Bld) 5.2 % Normal 2.0-13.0 [facility] Comment on above: Performed By: #### G FR, ADIFF, LIPID, MG, A1C, CBC, VIDH, CMP, ANEU #### [address] [address] #### PTH #### [address] [address] Neutrophils/100 WBC (Bld) 68.9 % Normal 50.0-75.0 [facility] Comment on above: Performed By: #### G FR, ADIFF, LIPID, MG, A1C, CBC, VIDH, CMP, ANEU #### [place] [address] #### PTH #### [address] [address] .GFRon 02-12-2025 Estimated Glomerular Filtration Rate 70 ml/min/1.73sqm Normal [facility] Comment on above: Result Comment: Stages of [...] MG, A1C, CBC, VIDH, CMP, ANEU #### [place] [address] #### PTH #### [place] [id number] .NEUABSon 02-12-2025 Neutrophil, Absolute 8.0 10 3/mcL Normal 2.3-8.1 [facility] Comment on above: Performed By: #### G FR, ADIFF, LIPID, MG, A1C, CBC, VIDH, CMP, ANEU #### [address] [address] #### PTH #### [place] [address] A1Con 02-12-2025 Glucose [Mass/Vol] 148 mg/dL Normal [facility] Comment on above: Result Comment: Kelly mated Average Glucose calculated by equation ((28.7xA1C)-46.7) Estimated average glucose (eAG) is a calculated value from Hemoglobin A1C and is assistance representative of the average blood glucose level in the last 2-3 month period. Normal range: less than 114 mg/dL Performed By: #### G FR, ADIFF, LIPID, MG, A1C, CBC, VIDH, CMP, ANEU #### [place] [address] #### PTH #### [place] [address] HbA1c (Bld) [Mass fraction] 6.8 % High 4.3-6.4 [facility] Comment on above: Performed By: #### G FR, ADIFF, LIPID, MG, A1C, CBC, VIDH, CMP, ANEU #### [place] [address] #### PTH #### [place] [address] CBCon 02-12-2025 Erythrocyte distribution width (RBC) [Ratio] 13.4 % Normal 11.5-15.5 [facility] Comment on above: Performed By: #### G FR, ADIFF, LIPID, MG, A1C, CBC, VIDH, CMP, ANEU #### [place] [address] #### PTH #### [place] [address] Hematocrit (Bld) [Volume fraction] 47.4 % High 34.0-46.0 [facility] Comment on above: Performed By: #### G FR, ADIFF, LIPID, MG, A1C, CBC, VIDH, CMP, ANEU #### [place] [address] #### PTH #### [place] [address] Hgb 16.0 G/dL Normal 12.0-16.0 [facility] Comment on above: Performed By: #### G FR, ADIFF, LIPID, MG, A1C, CBC, VIDH, CMP, ANEU #### [place] [address] #### PTH #### [place] [address] MCH (RBC) [Entitic mass] 30.8 pg Normal 27.0-33.0 [facility] Comment on above: Performed By: #### G FR, ADIFF, LIPID, MG, A1C, CBC, VIDH, CMP, ANEU #### [place] [address] #### PTH #### [place] [address] MCHC 33.8 G/dL Normal 32.0-36.0 [facility] Comment on above: Performed By: #### G FR, ADIFF, LIPID, MG, A1C, CBC, VIDH, CMP, ANEU #### [place] [address] #### PTH #### [place] [address] MCV (RBC) [Entitic vol] 91.0 fL Normal 80.0-99.0 [facility] Comment on above: Performed By: #### G FR, ADIFF, LIPID, MG, A1C, CBC, VIDH, CMP, ANEU #### [place] [address] #### PTH #### [place] [address] Platelet 328 10 3/mcL Normal 150-450 [facility] Comment on above: Performed By: #### G FR, ADIFF, LIPID, MG, A1C, CBC, VIDH, CMP, ANEU #### [place] [address] #### PTH #### [place] [address] Platelet mean volume (Bld) [Entitic vol] 8.0 fL Normal 6.6-10.5 [facility] Comment on above: Performed By: #### G FR, ADIFF, LIPID, MG, A1C, CBC, VIDH, CMP, ANEU #### [place] [address] #### PTH #### [place] [address] RBC 5.21 10 6/mcL Normal 4.10-5.30 [facility] Comment on above: Performed By: #### G FR, ADIFF, LIPID, MG, A1C, CBC, VIDH, CMP, ANEU #### [address] [address] #### PTH #### [address] [address] WBC 11.7 10 3/mcL High 4.5-10.8 [facility] Comment on above: Performed By: #### G FR, ADIFF, LIPID, MG, A1C, CBC, VIDH, CMP, ANEU #### [place] [address] #### PTH #### [address] [address] CMPon 02-12-2025 Albumin Level 4.0 G/dL Normal 3.4-4.8 [facility] Comment on above: Performed By: #### G FR, ADIFF, LIPID, MG, A1C, CBC, VIDH, CMP, ANEU #### [place] [address] #### PTH #### [place] [address] Albumin/Globulin [Mass ratio] 1.0 {ratio} Low 1.1-2.5 [facility] Comment on above: Performed By: #### G FR, ADIFF, LIPID, MG, A1C, CBC, VIDH, CMP, ANEU #### [address] [address] #### PTH #### [address] [address] ALP [Catalytic activity/Vol] 61 U/L Normal 40-135 [facility] Comment on above: Performed By: #### G FR, ADIFF, LIPID, MG, A1C, CBC, VIDH, CMP, ANEU #### [place] [address] #### PTH #### [address] [address] ALT [Catalytic activity/Vol] 30 U/L Normal 14-59 [facility] [facility] Comment on above: Performed By: #### G FR, ADIFF, LIPID, MG, A1C, CBC, VIDH, CMP, ANEU #### [address] [address] #### PTH #### [address] [address] AST [Catalytic activity/Vol] 19 U/L Normal 10-40 [facility] Comment on above: Performed By: #### G FR, ADIFF, LIPID, MG, A1C, CBC, VIDH, CMP, ANEU #### [place] [address] #### PTH #### [place] [address] Bili Total 0.6 mg/dL Normal 0.2-1.0 [facility] Comment on above: Result Comment: Use of this assay is not recommended for patients undergoing treatment with eltrombopag due to the potential for falsely elevated results. Performed By: #### G FR, ADIFF, LIPID, MG, A1C, CBC, VIDH, CMP, ANEU #### [place] [address] #### PTH #### [place] [address] BUN/Creatinine Ratio 21 ratio Normal 7-27 [facility] Comment on above: Performed By: #### G FR, ADIFF, LIPID, MG, A1C, CBC, VIDH, CMP, ANEU #### [place] [address] #### PTH #### [place] [address] Calcium [Mass/Vol] 9.9 mg/dL Normal 8.4-10.2 [facility] Comment on above: Performed By: #### G FR, ADIFF, LIPID, MG, A1C, CBC, VIDH, CMP, ANEU #### [place] [address] #### PTH #### [place] [address] Chloride [Moles/Vol] 102 mmol/L Normal 98-107 [facility] Comment on above: Performed By: #### G FR, ADIFF, LIPID, MG, A1C, CBC, VIDH, CMP, ANEU #### [address] [address] #### PTH #### [address] [address] CO2 [Moles/Vol] 30 mmol/L Normal 23-31 [facility] Comment on above: Performed By: #### G FR, ADIFF, LIPID, MG, A1C, CBC, VIDH, CMP, ANEU #### [address] [address] #### PTH #### [place] [address] Creatinine [Mass/Vol] 0.86 mg/dL Normal 0.51-0.95 [facility] Comment on above: Performed By: #### G FR, ADIFF, LIPID, MG, A1C, CBC, VIDH, CMP, ANEU #### [place] [address] #### PTH #### [place] [address] Electrolyte Balance 6.0 mEq/L Normal 4.0-15.0 [facility] Comment on above: Performed By: #### G FR, ADIFF, LIPID, MG, A1C, CBC, VIDH, CMP, ANEU #### [address] [address] #### PTH #### [place] [address] Globulin 4.0 G/dL Normal 2.7-4.4 [facility] Comment on above: Performed By: #### G FR, ADIFF, LIPID, MG, A1C, CBC, VIDH, CMP, ANEU #### [address] [address] #### PTH #### [address] [address] Glucose [Mass/Vol] 133 mg/dL High 83-110 [facility] Comment on above: Performed By: #### G FR, ADIFF, LIPID, MG, A1C, CBC, VIDH, CMP, ANEU #### [address] [address] #### PTH #### [address] [address] Potassium [Moles/Vol] 5.2 mmol/L High 3.5-5.1 [facility] Comment on above: Performed By: #### G FR, ADIFF, LIPID, MG, A1C, CBC, VIDH, CMP, ANEU #### [address] [address] #### PTH #### [address] [address] Sodium [Moles/Vol] 138 mmol/L Normal 136-145 [facility] Comment on above: Performed By: #### G FR, ADIFF, LIPID, MG, A1C, CBC, VIDH, CMP, ANEU #### [place] [address] #### PTH #### [address] [address] Total Protein 8.0 G/dL Normal 6.4-8.2 [facility] Comment on above: Performed By: #### G FR, ADIFF, LIPID, MG, A1C, CBC, VIDH, CMP, ANEU #### [address] [address] #### PTH #### [place] [address] Urea nitrogen [Mass/Vol] 18 mg/dL Normal 7-18 [facility] Comment on above: Performed By: #### G FR, ADIFF, LIPID, MG, A1C, CBC, VIDH, CMP, ANEU #### [place] [address] #### PTH #### [address] [address] LABORATORYOrdered By: SYSTEM SYSTEM on 02-12-2025 25-hydroxyvitamin [...] calculated value from Hemoglobin A1C and is assistance representative of the average blood glucose level [...] 02-12-2025 Cholesterol [Mass/Vol] 103 mg/dL Normal 0-200 [facility] Comment on above: Result Comment: Chol esterol Reference Interval: Less than 200 Desirable 200-239 Borderline high risk 240 and above High risk Performed By: #### G FR, ADIFF, LIPID, MG, A1C, CBC, VIDH, CMP, ANEU #### [address] [address] #### PTH #### [address] [address] Cholesterol in HDL [Mass/Vol] 37 mg/dL Low 40-60 [facility] Comment on above: Performed By: #### G FR, ADIFF, LIPID, MG, A1C, CBC, VIDH, CMP, ANEU #### [address] [address] #### PTH #### [address] [address] Cholesterol in LDL [Mass/Vol] 45 mg/dL Normal 0-130 [facility] Comment on above: Performed By: #### G FR, ADIFF, LIPID, MG, A1C, CBC, VIDH, CMP, ANEU #### [address] [address] #### PTH #### [address] [address] Triglyceride [Mass/Vol] 105 mg/dL Normal 0-150 [facility] Comment on above: Result Comment: Trig lyceride Reference Interval: Less than 150 Normal 150-199 Borderline high risk 200-499 High risk 500 or higher Very high risk Performed By: #### G FR, ADIFF, LIPID, MG, A1C, CBC, VIDH, CMP, ANEU #### [address] [address] #### PTH #### [address] [address] MALBRon 02-12-2025 U Creatinine 19.5 mg/dL Normal [facility] Comment on above: Performed By: #### M ALBR #### [address] [address] U Microalb 35.9 mg/L Normal [facility] Comment on above: Performed By: #### M ALBR #### [address] [address] U Ratio Alb/Cre 184 mg/G High 0-30 [facility] Comment on above: Performed By: #### M ALBR #### [address] [address] MGon 02-12-2025 Magnesium [Mass/Vol] 1.5 mg/dL Low 1.8-2.4 [facility] Comment on above: Performed By: #### G FR, ADIFF, LIPID, MG, A1C, CBC, VIDH, CMP, ANEU #### [address] [address] #### PTH #### [address] [address] PTHon 02-12-2025 PTH, Intact 14.9 pg/mL Low 18.5-88.0 [facility] Comment on above: Performed By: #### G FR, ADIFF, LIPID, MG, A1C, CBC, VIDH, CMP, ANEU #### [address] [address] #### PTH #### [place] [address] VIDHon 02-12-2025 Vit. D 25-Hydroxy 45.1 ng/mL Normal [facility] Comment on above: Result Comment: Inte rpretive Values Based on Total 25(OH) Vitamin D: Deficient <20 ng/mL Insufficient 20 - <30 ng/mL Sufficient 30-100 ng/mL Performed By: #### G FR, ADIFF, LIPID, MG, A1C, CBC, VIDH, CMP, ANEU #### [address] [address] #### PTH #### [address] [address] .GFRon 07-27-2024 GFR 72 ml/min/1.73sqm [facility] Comment on above: Result Comment: GFR Population [...] MG, A1C, CBC, VIDH, CMP, ANEU #### [address] [address] #### PTH #### [address] [address] GFR Non- 59 ml/min/1.73sqm [facility] Comment on above: Result Comment: GFR Population [...] MG, A1C, CBC, VIDH, CMP, ANEU #### [address] [address] #### PTH #### [address] [address] CMPon 07-27-2024 Electrolyte Balance 8.0 mEq/L Normal 4.0-15.0 [facility] Comment on above: Performed By: #### G FR, ADIFF, LIPID, MG, A1C, CBC, VIDH, CMP, ANEU #### [address] [address] #### PTH #### [place] [address] Albumin Level 4.2 G/dL Normal 3.4-4.8 [facility] Comment on above: Performed By: #### G FR, ADIFF, LIPID, MG, A1C, CBC, VIDH, CMP, ANEU #### [address] [address] #### PTH #### [place] [address] Albumin/Globulin [Mass ratio] 1.1 {ratio} Normal 1.1-2.5 [facility] Comment on above: Performed By: #### G FR, ADIFF, LIPID, MG, A1C, CBC, VIDH, CMP, ANEU #### [address] [address] #### PTH #### [address] [address] ALP [Catalytic activity/Vol] 63 U/L Normal 40-135 [facility] Comment on above: Performed By: #### G FR, ADIFF, LIPID, MG, A1C, CBC, VIDH, CMP, ANEU #### [address] [address] #### PTH #### [place] [address] ALT [Catalytic activity/Vol] 24 U/L Normal 14-59 [facility] Comment on above: Performed By: #### G FR, ADIFF, LIPID, MG, A1C, CBC, VIDH, CMP, ANEU #### [address] [address] #### PTH #### [address] [address] AST [Catalytic activity/Vol] 19 U/L Normal 10-40 [facility] Comment on above: Performed By: #### G FR, ADIFF, LIPID, MG, A1C, CBC, VIDH, CMP, ANEU #### [place] [address] #### PTH #### [address] [address] Bili Total 0.4 mg/dL Normal 0.2-1.0 [facility] Comment on above: Result Comment: Use of this assay is not recommended for patients undergoing treatment with eltrombopag due to the potential for falsely elevated results. Performed By: #### G FR, ADIFF, LIPID, MG, A1C, CBC, VIDH, CMP, ANEU #### [place] [address] #### PTH #### [address] [address] BUN/Creatinine Ratio 21 ratio Normal 7-27 [facility] Comment on above: Performed By: #### G FR, ADIFF, LIPID, MG, A1C, CBC, VIDH, CMP, ANEU #### [address] [address] #### PTH #### [address] [address] Calcium [Mass/Vol] 9.5 mg/dL Normal 8.4-10.2 [facility] Comment on above: Performed By: #### G FR, ADIFF, LIPID, MG, A1C, CBC, VIDH, CMP, ANEU #### [place] [address] #### PTH #### [address] [address] Chloride [Moles/Vol] 100 mmol/L Normal 98-107 [facility] Comment on above: Performed By: #### G FR, ADIFF, LIPID, MG, A1C, CBC, VIDH, CMP, ANEU #### [address] [address] #### PTH #### [address] [address] CO2 [Moles/Vol] 30 mmol/L Normal 23-31 [facility] Comment on above: Performed By: #### G FR, ADIFF, LIPID, MG, A1C, CBC, VIDH, CMP, ANEU #### [address] [address] #### PTH #### [address] [address] Creatinine [Mass/Vol] 0.92 mg/dL Normal 0.55-1.02 [facility] Comment on above: Result Comment: Test ing performed on Siemens Dimension EXL analyzer using a modified kinetic Елена technique. Performed By: #### G FR, ADIFF, LIPID, MG, A1C, CBC, VIDH, CMP, ANEU #### [address] [address] #### PTH #### [address] [address] Globulin 3.8 G/dL Normal [facility] Comment on above: Performed By: #### G FR, ADIFF, LIPID, MG, A1C, CBC, VIDH, CMP, ANEU #### [address] [address] #### PTH #### [address] [address] Glucose [Mass/Vol] 85 mg/dL Normal 83-110 [facility] Comment on above: Performed By: #### G FR, ADIFF, LIPID, MG, A1C, CBC, VIDH, CMP, ANEU #### [address] [address] #### PTH #### [address] [address] Potassium [Moles/Vol] 4.5 mmol/L Normal 3.5-5.1 [facility] Comment on above: Performed By: #### G FR, ADIFF, LIPID, MG, A1C, CBC, VIDH, CMP, ANEU #### [address] [address] #### PTH #### [address] [address] Sodium [Moles/Vol] 138 mmol/L Normal 136-145 [facility] Comment on above: Performed By: #### G FR, ADIFF, LIPID, MG, A1C, CBC, VIDH, CMP, ANEU #### [address] [address] #### PTH #### [address] [address] Total Protein 8.0 G/dL Normal 6.4-8.2 [facility] Comment on above: Performed By: #### G FR, ADIFF, LIPID, MG, A1C, CBC, VIDH, CMP, ANEU #### [address] [address] #### PTH #### [address] [address] Urea nitrogen [Mass/Vol] 19 mg/dL High 7-18 [facility] Comment on above: Performed By: #### G FR, ADIFF, LIPID, MG, A1C, CBC, VIDH, CMP, ANEU #### [address] [address] #### PTH #### [address] [address] LIPIDon 07-27-2024 Cholesterol [Mass/Vol] 118 mg/dL Normal 0-200 [facility] Comment on above: Result Comment: Chol esterol Reference Interval: Less than 200 Desirable 200-239 Borderline high risk 240 and above High risk Performed By: #### G FR, ADIFF, LIPID, MG, A1C, CBC, VIDH, CMP, ANEU #### [address] [address] #### PTH #### [address] [address] Cholesterol in HDL [Mass/Vol] 40 mg/dL Normal 40-60 [facility] Comment on above: Performed By: #### G FR, ADIFF, LIPID, MG, A1C, CBC, VIDH, CMP, ANEU #### [address] [address] #### PTH #### [address] [address] Cholesterol in LDL [Mass/Vol] 55 mg/dL Normal 0-130 [facility] Comment on above: Performed By: #### G FR, ADIFF, LIPID, MG, A1C, CBC, VIDH, CMP, ANEU #### [address] [address] #### PTH #### [address] [address] Triglyceride [Mass/Vol] 117 mg/dL Normal 0-150 [facility] Comment on above: Result Comment: Trig lyceride Reference Interval: Less than 150 Normal 150-199 Borderline high risk 200-499 High risk 500 or higher Very high risk Performed By: #### G FR, ADIFF, LIPID, MG, A1C, CBC, VIDH, CMP, ANEU #### [address] [address] #### PTH #### [address] [address] .Auto Diffon 07-26-2024 Basophil, Absolute 0.1 10 3/mcL Normal 0.0-0.2 [facility] Comment on above: Performed By: #### G FR, ADIFF, LIPID, MG, A1C, CBC, VIDH, CMP, ANEU #### [address] [address] #### PTH #### [address] [address] Basophils/100 WBC (Bld) 0.7 % Normal 0.0-2.5 [facility] Comment on above: Performed By: #### G FR, ADIFF, LIPID, MG, A1C, CBC, VIDH, CMP, ANEU #### [address] [address] #### PTH #### [address] [address] Eosinophil, Absolute 0.0 10 3/mcL Normal 0.0-0.7 [facility] Comment on above: Performed By: #### G FR, ADIFF, LIPID, MG, A1C, CBC, VIDH, CMP, ANEU #### [address] [address] #### PTH #### [address] [address] Eosinophils/100 WBC (Bld) 0.1 % Normal 0.0-7.0 [facility] Comment on above: Performed By: #### G FR, ADIFF, LIPID, MG, A1C, CBC, VIDH, CMP, ANEU #### [address] [address] #### PTH #### [address] [address] Lymphocyte, Absolute 3.5 10 3/mcL Normal 0.9-4.3 [facility] Comment on above: Performed By: #### G FR, ADIFF, LIPID, MG, A1C, CBC, VIDH, CMP, ANEU #### [address] [address] #### PTH #### [address] [address] Lymphocytes/100 WBC (Bld) 27.1 % Normal 20.0-40.0 [facility] Comment on above: Performed By: #### G FR, ADIFF, LIPID, MG, A1C, CBC, VIDH, CMP, ANEU #### [address] [address] #### PTH #### [address] [address] Monocyte, Absolute 0.7 10 3/mcL Normal 0.1-1.4 [facility] Comment on above: Performed By: #### G FR, ADIFF, LIPID, MG, A1C, CBC, VIDH, CMP, ANEU #### [address] [address] #### PTH #### [address] [address] Monocytes/100 WBC (Bld) 5.8 % Normal 2.0-13.0 [facility] Comment on above: Performed By: #### G FR, ADIFF, LIPID, MG, A1C, CBC, VIDH, CMP, ANEU #### [address] [address] #### PTH #### [address] [address] Neutrophils/100 WBC (Bld) 66.3 % Normal 50.0-75.0 [facility] Comment on above: Performed By: #### G FR, ADIFF, LIPID, MG, A1C, CBC, VIDH, CMP, ANEU #### [address] [address] #### PTH #### [address] [address] .NEUABSon 07-26-2024 Neutrophil, Absolute 8.5 10 3/mcL High 2.3-8.1 [facility] Comment on above: Performed By: #### G FR, ADIFF, LIPID, MG, A1C, CBC, VIDH, CMP, ANEU #### [place] [address] #### PTH #### [address] [address] A1Con 07-26-2024 Glucose [Mass/Vol] 146 mg/dL Normal [facility] Comment on above: Result Comment: Kelly mated Average Glucose calculated by equation ((28.7xA1C)-46.7) Estimated average glucose (eAG) is a calculated value from Hemoglobin A1C and is assistance representative of the average blood glucose level in the last 2-3 month period. Normal range: less than 114 mg/dL Performed By: #### G FR, ADIFF, LIPID, MG, A1C, CBC, VIDH, CMP, ANEU #### [address] [address] #### PTH #### [place] [address] HbA1c (Bld) [Mass fraction] 6.7 % High 4.3-6.4 [facility] Comment on above: Performed By: #### G FR, ADIFF, LIPID, MG, A1C, CBC, VIDH, CMP, ANEU #### [place] [address] #### PTH #### [place] [address] CBCon 07-26-2024 Erythrocyte distribution width (RBC) [Ratio] 14.0 % Normal 11.5-15.5 [facility] Comment on above: Performed By: #### G FR, ADIFF, LIPID, MG, A1C, CBC, VIDH, CMP, ANEU #### [place] [address] #### PTH #### [place] [address] Hematocrit (Bld) [Volume fraction] 46.7 % High 34.0-46.0 [facility] Comment on above: Performed By: #### G FR, ADIFF, LIPID, MG, A1C, CBC, VIDH, CMP, ANEU #### [place] [address] #### PTH #### [place] [address] Hgb 15.7 G/dL Normal 12.0-16.0 [facility] Comment on above: Performed By: #### G FR, ADIFF, LIPID, MG, A1C, CBC, VIDH, CMP, ANEU #### [place] [address] #### PTH #### [place] [address] MCH (RBC) [Entitic mass] 30.7 pg Normal 27.0-33.0 [facility] Comment on above: Performed By: #### G FR, ADIFF, LIPID, MG, A1C, CBC, VIDH, CMP, ANEU #### [place] [address] #### PTH #### [address] [address] MCHC 33.6 G/dL Normal 32.0-36.0 [facility] Comment on above: Performed By: #### G FR, ADIFF, LIPID, MG, A1C, CBC, VIDH, CMP, ANEU #### [place] [address] #### PTH #### [place] [address] MCV (RBC) [Entitic vol] 91.6 fL Normal 80.0-99.0 [facility] Comment on above: Performed By: #### G FR, ADIFF, LIPID, MG, A1C, CBC, VIDH, CMP, ANEU #### [place] [address] #### PTH #### [place] [address] Platelet 377 10 3/mcL Normal 150-450 [facility] Comment on above: Performed By: #### G FR, ADIFF, LIPID, MG, A1C, CBC, VIDH, CMP, ANEU #### [place] [address] #### PTH #### [place] [address] Platelet mean volume (Bld) [Entitic vol] 8.1 fL Normal 6.6-10.5 [facility] Comment on above: Performed By: #### G FR, ADIFF, LIPID, MG, A1C, CBC, VIDH, CMP, ANEU #### [place] [address] #### PTH #### [place] [address] RBC 5.10 10 6/mcL Normal 4.10-5.30 [facility] Comment on above: Performed By: #### G FR, ADIFF, LIPID, MG, A1C, CBC, VIDH, CMP, ANEU #### [address] [address] #### PTH #### [place] [address] WBC 12.8 10 3/mcL High 4.5-10.8 [facility] Comment on above: Performed By: #### G FR, ADIFF, LIPID, MG, A1C, CBC, VIDH, CMP, ANEU #### [address] [address] #### PTH #### [place] [address] FEon 07-26-2024 Iron [Mass/Vol] 114 ug/dL Normal 50-170 [facility] Comment on above: Performed By: #### G FR, ADIFF, LIPID, MG, A1C, CBC, VIDH, CMP, ANEU #### [place] [address] #### PTH #### [place] [address] IBCon 07-26-2024 TIBC 318 mcg/dL Normal 250-450 [facility] Comment on above: Performed By: #### G FR, ADIFF, LIPID, MG, A1C, CBC, VIDH, CMP, ANEU #### [place] [address] #### PTH #### [place] [address] LABORATORYOrdered By: SYSTEM SYSTEM on 07-26-2024 25-hydroxyvitamin [...] calculated value from Hemoglobin A1C and is assistance representative of the average blood glucose level [...] 07-26-2024 PTH, Intact 22.4 pg/mL Normal 18.5-88.0 [facility] Comment on above: Performed By: #### G FR, ADIFF, LIPID, MG, A1C, CBC, VIDH, CMP, ANEU #### [address] [address] #### PTH #### [address] [address] VIDHon 07-26-2024 Vit. D 25-Hydroxy 26.1 ng/mL Normal [facility] Comment on above: Result Comment: Inte rpretive Values Based on Total 25(OH) Vitamin D: Deficient <20 ng/mL Insufficient 20 - <30 ng/mL Sufficient 30-100 ng/mL Performed By: #### G FR, ADIFF, LIPID, MG, A1C, CBC, VIDH, CMP, ANEU #### [address] [address] #### PTH #### [address] [address] Blood type and Indirect anti body screen panel (Bld)on 03-07-2024 ABO group Nom (Bld) A [facility] Blood group antibody screen Ql Negative [facility] D Ag Ql (Bld) Positive [facility] ABO group Nom (Bld) A Normal [facility] Comment on above: Order Comment: Diagn osis of Diabetes-Adults Non-Diabetic: < or = 5.6% Increased risk for developing diabetes: 5.7-6.4% Diagnostic of diabetes: > or = 6.5% Monitoring of Diabetes Age (y)....................... Therapeutic Goal (%) Adults: >18.........................<7.0 Pediatrics: 13-18...................<7.5 Pediatrics: 7-12....................<8.0 Pediatrics: 0-6..................... 7.5-8.5 [place] [employer]. Diabetes Care 33(S1), Jun 2009 Performed By: #### 4 548-4 #### YASMIN Loving ([id number]) [facility] ([facility]) [address] [place] [address] Blood group antibody screen Ql Negative Normal [facility] Comment on above: Order Comment: Diagn osis of Diabetes-Adults Non-Diabetic: < or = 5.6% Increased risk for developing diabetes: 5.7-6.4% Diagnostic of diabetes: > or = 6.5% Monitoring of Diabetes Age (y)....................... Therapeutic Goal (%) Adults: >18.........................<7.0 Pediatrics: 13-18...................<7.5 Pediatrics: 7-12....................<8.0 Pediatrics: 0-6..................... 7.5-8.5 [place] [employer]. Diabetes Care 33(S1), Jun 2009 Performed By: #### 4 548-4 #### YASMIN Loving ([id number]) [facility] ([facility]) [address] [place] [address] D Ag Ql (Bld) Positive Normal [facility] Comment on above: Order Comment: Diagn osis of Diabetes-Adults Non-Diabetic: < or = 5.6% Increased risk for developing diabetes: 5.7-6.4% Diagnostic of diabetes: > or = 6.5% Monitoring of Diabetes Age (y)....................... Therapeutic Goal (%) Adults: >18.........................<7.0 Pediatrics: 13-18...................<7.5 Pediatrics: 7-12....................<8.0 Pediatrics: 0-6..................... 7.5-8.5 [place] [employer]. Diabetes Care 33(S1), Jun 2009 Performed By: #### 4 548-4 #### YASMIN Loving ([id number]) [facility] ([facility]) [address] [place] [address] Glucose Test strip manual (B ld) [Mass/Vol]on 03-07-2024 Glucose [Mass/Vol] 82 mg/dL 74 - 99 mg/dL [facility] Interpretation and review of laboratory results [facility] Glucose [Mass/Vol] 82 mg/dL Normal 74-99 [facility] Comment on above: Performed By: #### 4 548-4 #### YASMIN Loving ([id number]) [facility] ([facility]) [address] [place], [place] [id number] Glucose [Mass/Vol] 112 mg/dL High 74 - 99 mg/dL [facility] Interpretation and review of laboratory results Abnormal [facility] Glucose [Mass/Vol] 112 mg/dL High 74-99 [facility] Comment on above: Performed By: #### 2 4321-2 #### YASMIN Loving ([id number]) [facility] ([facility]) [address] [place], [place] [id number] Bacteria identifiedon 2023 Bacteria identified Cx Nom (U) Test: Urine Culture Specimen Source: Clean Catch/Voided Specimen Type: Urine Specimen Date: 03/02/2024910 Result Date: 03/05/2024919 Result Status: Final result Abnormal: Yes Resulting Lab: [facility] [address] [place] [address] CULTURE 20,000 - 80,000 Klebsiella oxytoca/Raoultella species (Abnormal) SUSCEPTIBILITY Klebsiella oxytoca/Raoultella species METHOD MICROSCAN --------- -------- AMOXICILLIN/CLAVULAN ATE <=8/4 ug/mL Susceptible AMPICILLIN >16.000 ug/mL Resistant AMPICILLIN/SULBACTAM <=4/2 ug/mL Susceptible CEFAZOLIN <=2 ug/mL Susceptible CIPROFLOXACIN <=0.250 ug/mL Susceptible GENTAMICIN <=2.000 ug/mL Susceptible LEVOFLOXACIN <=0.500 ug/mL Susceptible NITROFURANTOIN <=32 ug/mL Susceptible PIPERACILLIN/TAZOBAC FARLEY <=8.000 ug/mL Susceptible TRIMETHOPRIM/SULFAME THOXAZOLE <=0.5/9.5 ug/mL Susceptible Abnormal [facility] Comment on above: Performed By: #### 2 4321-2 #### YASMIN Lovign ([id number]) [facility] ([facility]) [address] [place] [address]10 Blood type and Indirect anti body screen panel (Bld)on 03-02-2024 ABO group Nom (Bld) A Normal [facility] Comment on above: Performed By: #### 2 4321-2 #### YASMIN Loving ([id number]) [facility] ([facility]) [address] [place] [address] [id number] Blood group antibody screen Ql Negative [facility] Comment on above: Performed By: #### 2 4321-2 #### YASMIN Loving ([id number]) [facility] ([facility]) [address] [place] [address] 21472 D Ag Ql (Bld) Positive [facility] Comment on above: Performed By: #### 2 4321-2 #### YASMIN Loving ([id number]) [facility] ([facility]) [address] [place] [address] 32713 CBC panel Auto (Bld)on 03-02 Erythrocyte distribution width (RBC) [Ratio] 13.0 % Normal 11.5-14.5 [facility] Comment on above: Performed By: #### 2 4321-2 #### YASMIN Loving ([id number]) [facility] ([facility]) [address] [place] [address] 37138 Hematocrit (Bld) [Volume fraction] 48.1 % High 36.0-46.0 [facility] Comment on above: Performed By: #### 2 4321-2 #### YASMIN Loving (76113) [facility] ([facility]) [address] [place] [address] 50962 Hemoglobin (Bld) [Mass/Vol] 15.4 g/dL Normal 12.0-16.0 [facility] Comment on above: Performed By: #### 2 4321-2 #### YASMIN Loving (00704) [facility] ([facility]) [address] [place] [address] 18225 MCH (RBC) [Entitic mass] 29.9 pg Normal 26.0-34.0 [facility] Comment on above: Performed By: #### 2 4321-2 #### YASMIN Loving (24191) [facility] ([facility]) [address] [place] [address] 67075 MCHC (RBC) [Mass/Vol] 32.0 g/dL Normal 32.0-36.0 [facility] Comment on above: Performed By: #### 2 4321-2 #### YASMIN Loving (19022) [facility] ([facility]) [address] [place] [address] 72769 MCV (RBC) [Entitic vol] 93 fL Normal 80-100 U [facility] Comment on above: Performed By: #### 2 4321-2 #### YASMIN Loving (02912) [facility] ([facility]) [address] [place] [address] 89007 Nucleated RBC/100 WBC (Bld) [Ratio] 0.0 /100 WBCs Normal 0.0-0.0 [facility] Comment on above: Performed By: #### 2 4321-2 #### YASMIN Loving (18846) [facility] ([facility]) [address] [place] [address] 00713 Platelets (Bld) [#/Vol] 377 x10*3/uL Normal 150-450 [facility] Comment on above: Performed By: #### 2 4321-2 #### YASMIN Loving (24598) [facility] ([facility]) [address] [place] [address] 75381 RBC (Bld) [#/Vol] 5.15 x10*6/uL Normal 4.00-5.[address] [facility] Comment on above: Performed By: #### 2 4321-2 #### YASMIN Loving (51418) [facility] ([facility]) [address] [place] [address] 09493 WBC (Bld) [#/Vol] 13.6 x10*3/uL High 4.4-11.[address] [facility] Comment on above: Performed By: #### 2 4321-2 #### YASMIN Loving (96412) [facility] ([facility]) [address] [place] [address] 29558 PT and aPTT panel Coag (PPP) on 03-02-2024 aPTT Coag (PPP) [Time] 36 s Normal 27-38 Un [facility] Comment on above: Order Comment: The A PTT is no longer used for monitoring Unfractionated Heparin Therapy. For monitoring Heparin Therapy, use the Heparin Assay. Performed By: #### 2 4321-2 #### YASMIN Loving (51997) [facility] ([facility]) [address] [place] [address] 68531 INR Coag (PPP) [Relative time] 1.0 Normal 0.9-1.1 [facility] Comment on above: Order Comment: The A PTT is no longer used for monitoring Unfractionated Heparin Therapy. For monitoring Heparin Therapy, use the Heparin Assay. Performed By: #### 2 4321-2 #### YASMIN Loving (01369) [facility] ([facility]) [address] [place] [address] 78643 PT Coag (PPP) [Time] 11.6 s Normal 9.8-12.[address] [facility] Comment on above: Order Comment: The A PTT is no longer used for monitoring Unfractionated Heparin Therapy. For monitoring Heparin Therapy, use the Heparin Assay. Performed By: #### 2 4321-2 #### YASMIN Loving (23808) [facility] ([facility]) [address] [place] [address] 14316 Urinalysis complete W Reflex Culture panel (U)on 03-02-2024 Appearance (U) Clear Normal Clear [facility] Comment on above: Performed By: #### 2 4321-2 #### YASMIN Loving (91997) [facility] ([facility]) [address] [place] [address] 72684 Bilirubin (U) [Mass/Vol] Negative Normal NEGATIVE [facility] Comment on above: Performed By: #### 2 4321-2 #### YASMIN MCKENZIE L (84957) [facility] ([facility]) [address] [place] [address] 96606 Color (U) Colorless Normal Light-Yellow, Yellow, Dark-Yellow [facility] Comment on above: Performed By: #### 2 4321-2 #### YASMIN MCKENZIE L (33239) [facility] ([facility]) [address] [place] [address] 27627 Glucose Auto test strip (U) [Mass/Vol] Normal Normal Normal [facility] Comment on above: Performed By: #### 2 4321-2 #### YASMIN MCKENZIE L (40549) [facility] ([facility]) [address] [place] [address] 38551 Ketones (U) [Mass/Vol] Negative Normal NEGATIVE Un [facility] Comment on above: Performed By: #### 2 4321-2 #### YASMIN MCKENZIE L ([id number]) [facility] ([facility]) [address] [place] [address] 50960 Leukocyte esterase Auto test strip Ql (U) 75 Logan/???L Abnormal NEGATIVE [facility] Comment on above: Performed By: #### 2 4321-2 #### YASMIN MCKENZIE L (36946) [facility] ([facility]) [address] [place] [address] 30896 Nitrite Auto test strip Ql (U) Negative Normal NEGATIVE [facility] Comment on above: Performed By: #### 2 4321-2 #### YASMIN MCKENZIE L (51495) [facility] ([facility]) [address] [place] [address] 40166 pH (U) 6.0 [pH] Normal 5.0, 5.5, 6.0, 6.5, 7.0, 7.5, 8.0 [facility] Comment on above: Performed By: #### 2 4321-2 #### YASMIN MCKENZIE L ([id number]) [facility] ([facility]) [address] [place] [address] 63610 Protein (U) [Mass/Vol] Negative Normal NEGAT TOÑA, 10 (TRACE), 20 (TRACE) [facility] Comment on above: Performed By: #### 2 4321-2 #### YASMIN Loving (45350) [facility] ([facility]) [address] [place] [address] 07525 RBC (U) [#/Vol] 0.03 (TRACE) Abnormal NEGATIVE [facility] Comment on above: Performed By: #### 2 4321-2 #### YASMIN Loving (14010) [facility] ([facility]) [address] [place] [address] 53173 Specific gravity (U) [Rel density] 1.004 Normal 1.005-1.035 [facility] Comment on above: Performed By: #### 2 4321-2 #### YASMIN Loving (92097) [facility] ([facility]) [address] [place] [address] 13661 Urobilinogen (U) [Mass/Vol] Normal Normal Normal [facility] Comment on above: Performed By: #### 2 4321-2 #### YASMIN Loving (50586) [facility] ([facility]) [address] [place] [address] 68957 Urinalysis microscopic panel Auto Ql (U)on 03-02-2024 Bacteria Auto (Urine sed) [#/Area] 3+ /HPF Abnormal NONE SEEN [facility] Comment on above: Performed By: #### 2 4321-2 #### YASMIN Loving (38434) [facility] ([facility]) [address] [place] [address] 33134 RBC Auto (Urine sed) [#/Area] 1-2 Normal NONE, 1-2, 3-5 [facility] Comment on above: Performed By: #### 2 4321-2 #### YASMIN Loving (72590) [facility] ([facility]) [address] [place] [address] 43134 WBC Auto (Urine sed) [#/Area] 6-10 Abnormal 1-5, NONE [facility] Comment on above: Performed By: #### 2 4321-2 #### YASMIN Loving (08829) [facility] ([facility]) [address] [place], [place] [address] FL FLUORO IMAGES NO CHARGEon 12-26-2023 FL FLUORO IMAGES NO CHARGE These images are not reportable by radiology and will not be interpreted by Radiologists. Normal [facility] Glucose Test strip manual (B ld) [Mass/Vol]on 12-26-2023 Glucose [Mass/Vol] 98 mg/dL 74 - 99 mg/dL [facility] Interpretation and review of laboratory results Normal [facility] Glucose [Mass/Vol] 98 mg/dL Normal 74-99 [facility] Comment on above: Performed By: #### 2 4321-2 #### YASMIN Loving (50451) [facility] ([facility]) [address] [place], [place] [address] Glucose [Mass/Vol] 119 mg/dL High 74 - 99 mg/dL [facility] Interpretation and review of laboratory results Abnormal [facility] Glucose [Mass/Vol] 119 mg/dL High 74-99 [facility] Comment on above: Performed By: #### 3 4529-8 #### YASMIN Loving (15665) [facility] ([facility]) [address] [place], [place] [address] Surgical pathology studyon 0 12-26-2023 Surgical pathology study Pathology report.total SEE COMMENT Surgical Pathology Case: [id number] Authorizing Provider: Braden Hopkins MD MPH Collected: 12/26/2023 1340 Ordering Location: [facility] Received: 12/26/2023 [facility] Pathologist: Yulissa Barrientos MD Specimen: URETER [...] is submitted in toto in one cassette. 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 IMAGING Bacteria identifiedon 2023 Bacteria identified Cx Nom (U) Test: Urine Culture Specimen Source: Clean Catch/Voided Specimen Type: Urine Specimen Date: 12/19/2023 111 Result Date: 12/21/2023 0841 Result Status: Final result Abnormal: No Resulting Lab: [facility] [address] [place] [address] CULTURE No significant growth [facility] Comment on above: Performed By: #### 3 4529-8 #### YASMIN Loving (33138) [facility] ([facility]) [id number] [place], [place] [id number] Basic metabolic 2000 panelon 12-19-2023 Anion gap [Moles/Vol] 12 mmol/L Normal 10-20 [facility] Comment on above: Performed By: #### 3 4529-8 #### YASMIN Loving (43199) [facility] ([facility]) [address] [place], [place] [address] Calcium [Mass/Vol] 9.2 mg/dL Normal 8.6-10.3 [facility] Comment on above: Performed By: #### 3 4529-8 #### YASMIN Loving (00292) [facility] ([facility]) [address] [place] [address] 07374 Chloride [Moles/Vol] 102 mmol/L Normal 98-[address] [facility] Comment on above: Performed By: #### 3 4529-8 #### YASMIN Loving (48121) [facility] ([facility]) [address] [place] [address] CO2 [Moles/Vol] 28 mmol/L Normal 21-32 [facility] Comment on above: Performed By: #### 3 4529-8 #### YASMIN Loving (30292) [facility] ([facility]) [address] [place] [address] 68768 Creatinine [Mass/Vol] 0.94 mg/dL Normal 0.50-1.05 [facility] Comment on above: Performed By: #### 3 4529-8 #### YASMIN Loving (99150) [facility] ([facility]) [address] [place] [address] 36493 Glomerular filtration rate/1.73 sq M.predicted 63 mL/min/1.73m*2 Normal >60 [facility] Comment on above: Result Comment: Calc ulations of estimated GFR are performed using the 2020 CKD-EPI Study Refit equation without the race variable for the IDMS-Traceable creatinine methods. https://jasn.asnjournals.org/content/early//ASN.449 2846895 Performed By: #### 3 4529-8 #### YASMIN Loving (59358) [facility] ([facility]) [address] [place] [address] 17608 Glucose [Mass/Vol] 134 mg/dL High 74-99 [facility] Comment on above: Performed By: #### 3 4529-8 #### YASMIN Loving (33447) [facility] ([facility]) [address] [place] [address] 90729 Potassium [Moles/Vol] 4.8 mmol/L Normal 3.5-5.3 [facility] Comment on above: Performed By: #### 3 4529-8 #### YASMIN Loving (70935) [facility] ([facility]) [address] [place] [address] 41823 Sodium [Moles/Vol] 137 mmol/L Normal 136-145 [facility] Comment on above: Performed By: #### 3 4529-8 #### YASMIN Loving (59673) [facility] ([facility]) [address] [place] [address] 28462 Urea nitrogen [Mass/Vol] 29 mg/dL High 6-23 [facility] Comment on above: Performed By: #### 3 4529-8 #### YASMIN Loving (81682) [facility] ([facility]) [address] [place] [address] 21805 CBC panel Auto (Bld)on 12-18 Erythrocyte distribution width (RBC) [Ratio] 14.3 % Normal 11.5-14.5 [facility] Comment on above: Performed By: #### 3 4529-8 #### YASMIN Loving (37216) [facility] ([facility]) [address] [place] [address] 99467 Hematocrit (Bld) [Volume fraction] 45.5 % Normal 36.0-46.0 [facility] Comment on above: Performed By: #### 3 4529-8 #### YASMIN Loving (81134) [facility] ([facility]) [address] [place] [address] 09947 Hemoglobin (Bld) [Mass/Vol] 14.9 g/dL Normal 12.0-16.0 [facility] Comment on above: Performed By: #### 3 4529-8 #### YASMIN Loving (57343) [facility] ([facility]) [address] [place] [address] 03118 MCH (RBC) [Entitic mass] 29.5 pg Normal 26.0-34.0 [facility] Comment on above: Performed By: #### 3 4529-8 #### YASMIN Loving (96622) [facility] ([facility]) [address] [place] [address] 41580 MCHC (RBC) [Mass/Vol] 32.7 g/dL Normal 32.0-36.0 [facility] Comment on above: Performed By: #### 3 4529-8 #### YASMIN Loving (81828) [facility] ([facility]) [address] [place] [address] 78879 MCV (RBC) [Entitic vol] 90 fL Normal 80-100 U [facility] Comment on above: Performed By: #### 3 4529-8 #### YASMIN Loving (90969) [facility] ([facility]) [address] [place] [address] 04991 Nucleated RBC/100 WBC (Bld) [Ratio] 0.0 /100 WBCs Normal 0.0-0.0 [facility] Comment on above: Performed By: #### 3 4529-8 #### YASMIN Loving (12842) [facility] ([facility]) [address] [place] [address] 06588 Platelets (Bld) [#/Vol] 296 x10*3/uL Normal 150-450 [facility] Comment on above: Performed By: #### 3 4529-8 #### YASMIN Loving (16145) [facility] ([facility]) [address] [place] [address] 13127 RBC (Bld) [#/Vol] 5.05 x10*6/uL Normal 4.00-5.[address] [facility] Comment on above: Performed By: #### 3 4529-8 #### YASMIN Loving (56560) [facility] ([facility]) [address] [place] [address] 42368 WBC (Bld) [#/Vol] 13.9 x10*3/uL High 4.4-11.[address] [facility] Comment on above: Performed By: #### 3 4529-8 #### YASMIN Loving (36755) [facility] ([facility]) [address] [place] [address] 03450 Coagulation tissue factor in ducedon 12-19-2023 PT Coag (PPP) [Time] 11.3 s Normal 9.8-12.[address] [facility] Comment on above: Performed By: #### 3 4529-8 #### YASMIN Loving (87699) [facility] ([facility]) [address] [place] [address] 88248 PT Coag (PPP) [Time]on 12-18 INR Coag (PPP) [Relative time] 1.0 Normal 0.9-1.1 [facility] Comment on above: Performed By: #### 3 4529-8 #### YASMIN Loving (06771) [facility] ([facility]) [address] [place] [address] 27779 Urinalysis complete panel (U )on 12-19-2023 Appearance (U) Clear Normal Clear [facility] Comment on above: Performed By: #### 3 4529-8 #### YASMIN Loving (08061) [facility] ([facility]) [address] [place] [address] 26251 Bilirubin (U) [Mass/Vol] Negative Normal NEGATIVE [facility] Comment on above: Performed By: #### 3 4529-8 #### YASMIN Loving (84895) [facility] ([facility]) [address] [place] [address] 63660 Color (U) Colorless Normal Light-Yellow, Yellow, Dark-Yellow [facility] Comment on above: Performed By: #### 3 4529-8 #### YASMIN Loving (68421) [facility] ([facility]) [address] [place] [address] 49089 Glucose Auto test strip (U) [Mass/Vol] Normal Normal Normal [facility] Comment on above: Performed By: #### 3 4529-8 #### YASMIN Loving (70386) [facility] ([facility]) [address] [place] [address] 06725 Ketones (U) [Mass/Vol] Negative Normal NEGATIVE [facility]: Performed By: #### 3 4529-8 #### YASMIN Loving (07908) [facility] ([facility]) [address] [place] [address] 73658 Leukocyte esterase Auto test strip Ql (U) Negative Normal NEGATIVE [facility] Comment on above: Performed By: #### 3 4529-8 #### YASMIN Loving (22598) [facility] ([facility]) [address] [place] [address] 87605 Nitrite Auto test strip Ql (U) Negative Normal NEGATIVE [facility] Comment on above: Performed By: #### 3 4529-8 #### YASMIN Loving (93220) [facility] ([facility]) [address] [place] [address] 69901 pH (U) 5.5 [pH] Normal 5.0, 5.5, 6.0, 6.5, 7.0, 7.5, 8.0 [facility] Comment on above: Performed By: #### 3 4529-8 #### YASMIN Loving (79550) [facility] ([facility]) [address] [place] [address] 52027 Protein (U) [Mass/Vol] Negative Normal NEGAT TOÑA, 10 (TRACE), 20 (TRACE) [facility] Comment on above: Performed By: #### 3 4529-8 #### YASMIN Loving (88405) [facility] ([facility]) [address] [place] [address] 56469 RBC (U) [#/Vol] 0.5 (2+) Abnormal NEGATIVE [facility] Comment on above: Performed By: #### 3 4529-8 #### YASMIN Loving ([id number]) [facility] ([facility]) [address] [place] [address] 33706 Specific gravity (U) [Rel density] 1.004 Normal 1.005-1.035 [facility] Comment on above: Performed By: #### 3 4529-8 #### YASMIN Loving (20207) [facility] ([facility]) [address] [place] [address] 21445 Urobilinogen (U) [Mass/Vol] Normal Normal Normal [facility] Comment on above: Performed By: #### 3 4529-8 #### YASMIN Loving (54572) [facility] ([facility]) [address] [place] [address] 66270 Urinalysis microscopic panel Auto Ql (U)on 12-19-2023 RBC Auto (Urine sed) [#/Area] 1-2 Normal NONE, 1-2, 3-5 [facility] Comment on above: Performed By: #### 3 4529-8 #### YASMIN Loving (54605) [facility] ([facility]) [address] [place] [address] 76030 WBC Auto (Urine sed) [#/Area] 1-5 Normal 1-5, NONE [facility] Comment on above: Performed By: #### 3 4529-8 #### YASMIN Loving (64881) [facility] ([facility]) [address] [place] [address] UROGRAP[address] WITH 3D VOLUME RENDERED IMAGINGon 11-22-2023 CT UROGRAPHY WITH 3D VOLUME RENDERED IMAGING Interpreted By: Day Truong, STUDY: CT UROGRAPHY WITH 3D VOLUME RENDERED IMAGING; 11/22/2023 2:16 pm INDICATION: Signs/Symptoms:urete ral mass COMPARISON: None ACCESSION NUMBER(S): [id number] ORDERING CLINICIAN: BRADEN HOPKINS TECHNIQUE: CT of [...] Day Truong 11/24/2023 12:35 PM Dictation workstation: [id number] [facility] RENINon 11-21-2023 Renin Activity 1.174 ng/mL/hr Normal 0.167-5.380 [facility] ([place]) Comment on above: Result Comment: This test was developed and its performance characteristics determined by [employer]. It has not been cleared or approved by the Food and Drug Administration. Performed At: [address] [id number] Rayshawn Paul MD Ph:[phone] Performed By: #### D HEAS, INSLN, CPEP, ANKUR, HCV1, MADYSON, GEOVANNA, GGT, PTH #### [address] [address] #### [id number], VIDH, [id number], GFR, MG, JESSICA, CMP, LIP, TSH, ADIFF, CRP, PHOS, CBC, ANEU #### [place] [address] [place], [place] [address] .Auto Diffon 11-17-2023 Basophil, Absolute 0.1 10 3/mcL Normal 0.0-0.2 [facility] ([place]) Comment on above: Performed By: #### D HEAS, INSLN, CPEP, ANKUR, HCV1, MADYSON, GEOVANNA, GGT, PTH #### [place] [address] #### 574661, VIDH, 241954, GFR, MG, JESSICA, CMP, LIP, TSH, ADIFF, CRP, PHOS, CBC, ANEU #### [address] [address] Basophils/100 WBC (Bld) 1.1 % Normal 0.0-2.5 A [facility] ([place]) Comment on above: Performed By: #### Amy RUSSAS, INSLN, CPEP, ANKUR, HCV1, MADYSON, GEOVANNA, GGT, PTH #### [place] [address] #### 135907, VIDH, 683941, GFR, MG, JESSICA, CMP, LIP, TSH, ADIFF, CRP, PHOS, CBC, ANEU #### [address] [address] Eosinophil, Absolute 0.0 10 3/mcL Normal 0.0-0.4 [facility] ([place]) Comment on above: Performed By: #### Amy RUSSAS, INSLN, CPEP, ANKUR, HCV1, MADYSON, GEOVANNA, GGT, PTH #### [place] [address] #### 202212, VIDH, 026605, GFR, MG, JESSICA, CMP, LIP, TSH, ADIFF, CRP, PHOS, CBC, ANEU #### [address] [address] Eosinophils/100 WBC (Bld) 0.0 % Normal 0.0-7.0 [facility] ([place]) Comment on above: Performed By: #### D HEAS, INSLN, CPEP, ANKUR, HCV1, MADYSON, GEOVANNA, GGT, PTH #### [place] [address] #### 759779, VIDH, 410357, GFR, MG, JESSICA, CMP, LIP, TSH, ADIFF, CRP, PHOS, CBC, ANEU #### [address] [address] Lymphocyte, Absolute 3.2 10 3/mcL Normal 0.8-3.9 [facility] ([place]) Comment on above: Performed By: #### D HEAS, INSLN, CPEP, ANKUR, HCV1, MADYSON, GEOVANNA, GGT, PTH #### [address] [address] #### [id number], VIDH, 590442, GFR, MG, JESSICA, CMP, LIP, TSH, ADIFF, CRP, PHOS, CBC, ANEU #### [address] [address] Lymphocytes/100 WBC (Bld) 23.4 % Normal 10.0-50.0 [facility] ([place]) Comment on above: Performed By: #### Amy RUSSAS, INSLN, CPEP, ANKUR, HCV1, MADYSON, GEOVANNA, GGT, PTH #### [place] [address] #### [id number], VIDH, 238796, GFR, MG, JESSICA, CMP, LIP, TSH, ADIFF, CRP, PHOS, CBC, ANEU #### [address] [address] Monocyte, Absolute 0.6 10 3/mcL Normal 0.2-1.0 [facility] ([place]) Comment on above: Performed By: #### Amy RUSSAS, INSLN, CPEP, ANKUR, HCV1, MADYSON, GEOVANNA, GGT, PTH #### [address] [address] #### [id number], VIDH, 415576, GFR, MG, JESSICA, CMP, LIP, TSH, ADIFF, CRP, PHOS, CBC, ANEU #### [address] [address] Monocytes/100 WBC (Bld) 4.6 % Normal 1.7-13.0 A [facility] ([place]) Comment on above: Performed By: #### D HEAS, INSLN, CPEP, ANKUR, HCV1, MADYSON, GEOVANNA, GGT, PTH #### [address] [address] #### 926792, VIDH, 630241, GFR, MG, JESSICA, CMP, LIP, TSH, ADIFF, CRP, PHOS, CBC, ANEU #### [address] [address] Neutrophils/100 WBC (Bld) 70.9 % Normal 37.0-80.0 [facility] ([place]) Comment on above: Performed By: #### Amy HEAS, INSLN, CPEP, ANKUR, HCV1, MADYSON, GEOVANNA, GGT, PTH #### [place] [address] #### 054206, VIDH, 368170, GFR, MG, JESSICA, CMP, LIP, TSH, ADIFF, CRP, PHOS, CBC, ANEU #### [address] [address] .GFRon 11-17-2023 GFR Non- 59 ml/min/1.73sqm Normal [facility] ([place]) Comment on above: Result Comment: GFR Population [...] mL/min/1.73 square meters Performed By: #### Amy HEAS, INSLN, CPEP, ANKUR, HCV1, MADYSON, GEOVANNA, GGT, PTH #### [place] [address] #### 308856, VIDH, 691938, GFR, MG, JESSICA, CMP, LIP, TSH, ADIFF, CRP, PHOS, CBC, ANEU #### [address] [address] GFR 71 ml/min/1.73sqm Normal [facility] ([place]) Comment on above: Result Comment: GFR Population [...] mL/min/1.73 square meters Performed By: #### Amy HEAS, INSLN, CPEP, ANKUR, HCV1, MADYSON, GEOVANNA, GGT, PTH #### [address] [address] #### 066019, VIDH, 740574, GFR, MG, JESSICA, CMP, LIP, TSH, ADIFF, CRP, PHOS, CBC, ANEU #### [address] [address] .NEUABSon 11-17-2023 Neutrophil, Absolute 9.6 10 3/mcL High 2.9-6.2 [facility] ([place]) Comment on above: Performed By: #### Amy HEAS, INSLN, CPEP, ANKUR, HCV1, MADYSON, GEOVANNA, GGT, PTH #### [place] [address] #### 604500, VIDH, 075826, GFR, MG, JESSICA, CMP, LIP, TSH, ADIFF, CRP, PHOS, CBC, ANEU #### [address] [address] A1Con 11-17-2023 HbA1c (Bld) [Mass fraction] 8.4 % High 4.3-6.4 [facility] ([place]) Comment on above: Performed By: #### Amy HEAS, INSLN, CPEP, ANKUR, HCV1, MADYSON, GEOVANNA, GGT, PTH #### [place] [address] #### 847551, VIDH, 054771, GFR, MG, JESSICA, CMP, LIP, TSH, ADIFF, CRP, PHOS, CBC, ANEU #### [address] [address] CBCon 11-17-2023 Erythrocyte distribution width (RBC) [Ratio] 14.5 % Normal 11.5-14.5 [facility] ([place]) Comment on above: Performed By: #### D HEAS, INSLN, CPEP, ANKUR, HCV1, MADYSON, GEOVANNA, GGT, PTH #### [place] [address] #### 700185, VIDH, 829438, GFR, MG, JESSICA, CMP, LIP, TSH, ADIFF, CRP, PHOS, CBC, ANEU #### [address] [address] Hematocrit (Bld) [Volume fraction] 44.8 % Normal 37.0-47.0 [facility] ([place]) Comment on above: Performed By: #### D HEAS, INSLN, CPEP, ANKUR, HCV1, MADYSON, GEOVANNA, GGT, PTH #### [place] [address] #### 956841, VIDH, 145812, GFR, MG, JESSICA, CMP, LIP, TSH, ADIFF, CRP, PHOS, CBC, ANEU #### [address] [address] Hgb 15.4 G/dL Normal 12.0-16.0 [facility] ([place]) Comment on above: Performed By: #### D HEAS, INSLN, CPEP, ANKUR, HCV1, MADYSON, GEOVANNA, GGT, PTH #### [place] [address] #### 418261, VIDH, 060033, GFR, MG, JESSICA, CMP, LIP, TSH, ADIFF, CRP, PHOS, CBC, ANEU #### [address] [address] MCH (RBC) [Entitic mass] 29.6 pg Normal 27.0-31.2 [facility] ([place]) Comment on above: Performed By: #### Amy RUSSAS, INSLN, CPEP, ANKUR, HCV1, MADYSON, GEOVANNA, GGT, PTH #### [place] [address] #### 665917, VIDH, 983372, GFR, MG, JESSICA, CMP, LIP, TSH, ADIFF, CRP, PHOS, CBC, ANEU #### [address] [address] MCHC 34.3 G/dL Normal 33.0-37.0 [facility] ([place]) Comment on above: Performed By: #### Amy RUSSAS, INSLN, CPEP, ANKUR, HCV1, MADYSON, GEOVANNA, GGT, PTH #### [place] [address] #### 509409, VIDH, 175749, GFR, MG, JESSICA, CMP, LIP, TSH, ADIFF, CRP, PHOS, CBC, ANEU #### [address] [address] MCV (RBC) [Entitic vol] 86.3 fL Normal 80.0-94.0 A [facility] ([place]) Comment on above: Performed By: #### Amy RUSSAS, INSLN, CPEP, ANKUR, HCV1, MADYSON, GEOVANNA, GGT, PTH #### [place] [address] #### 828494, VIDH, 831482, GFR, MG, JESSICA, CMP, LIP, TSH, ADIFF, CRP, PHOS, CBC, ANEU #### [address] [address] Platelet 332 10 3/mcL Normal 130-400 [facility] ([place]) Comment on above: Performed By: #### Amy RUSSAS, INSLN, CPEP, ANKUR, HCV1, MADYSON, GEOVANNA, GGT, PTH #### [place] [address] #### 532207, VIDH, 123833, GFR, MG, JESSICA, CMP, LIP, TSH, ADIFF, CRP, PHOS, CBC, ANEU #### [address] [address] Platelet mean volume (Bld) [Entitic vol] 7.8 fL Normal 7.4-10.4 [facility] ([place]) Comment on above: Performed By: #### D HEAS, INSLN, CPEP, ANKUR, HCV1, MADYSON, GEOVANNA, GGT, PTH #### [place] [address] #### 179434, VIDH, 839620, GFR, MG, JESSICA, CMP, LIP, TSH, ADIFF, CRP, PHOS, CBC, ANEU #### [address] [address] RBC 5.19 10 6/mcL Normal 4.20-5.40 [facility] ([place]) Comment on above: Performed By: #### D PETRONAAS, INSLN, CPEP, ANKUR, HCV1, MADYSON, GEOVANNA, GGT, PTH #### [place] [address] #### 853655, VIDH, 750942, GFR, MG, JESSICA, CMP, LIP, TSH, ADIFF, CRP, PHOS, CBC, ANEU #### [address] [address] WBC 13.5 10 3/mcL High 4.6-10.8 [facility] ([place]) Comment on above: Performed By: #### Amy RUSSAS, INSLN, CPEP, ANKUR, HCV1, MADYSON, GEOVANNA, GGT, PTH #### [place] [address] #### 801748, VIDH, 487790, GFR, MG, JESSICA, CMP, LIP, TSH, ADIFF, CRP, PHOS, CBC, ANEU #### [address] [address] CMPon 11-17-2023 Albumin Level 3.9 G/dL Normal 3.4-4.8 [facility] ([place]) Comment on above: Performed By: #### D HEAS, INSLN, CPEP, ANKUR, HCV1, MADYSON, GEOVANNA, GGT, PTH #### [place] [address] #### 781547, VIDH, 589911, GFR, MG, JESSICA, CMP, LIP, TSH, ADIFF, CRP, PHOS, CBC, ANEU #### [address] [address] Albumin/Globulin [Mass ratio] 0.9 {ratio} Low 1.1-2.5 [facility] ([place]) Comment on above: Performed By: #### D HEAS, INSLN, CPEP, ANKUR, HCV1, MADYSON, GEOVANNA, GGT, PTH #### [place] [address] #### 028776, VIDH, 620179, GFR, MG, JESSICA, CMP, LIP, TSH, ADIFF, CRP, PHOS, CBC, ANEU #### [address] [address] ALP [Catalytic activity/Vol] 55 U/L Normal 40-135 [facility] ([place]) Comment on above: Performed By: #### D HEAS, INSLN, CPEP, ANKUR, HCV1, MADYSON, GEOVANNA, GGT, PTH #### [place] [address] #### 009538, VIDH, 708611, GFR, MG, JESSICA, CMP, LIP, TSH, ADIFF, CRP, PHOS, CBC, ANEU #### [address] [address] ALT [Catalytic activity/Vol] 23 U/L Normal 14-59 [facility] ([place]) Comment on above: Performed By: #### D HEAS, INSLN, CPEP, ANKUR, HCV1, MADYSON, GEOVANNA, GGT, PTH #### [place] [address] #### 709869, VIDH, 534570, GFR, MG, JESSICA, CMP, LIP, TSH, ADIFF, CRP, PHOS, CBC, ANEU #### [address] [address] AST [Catalytic activity/Vol] 15 U/L Normal 10-40 [facility] ([place]) Comment on above: Performed By: #### D HEAS, INSLN, CPEP, ANKUR, HCV1, MADYSON, GEOVANNA, GGT, PTH #### [place] [address] #### 215471, VIDH, 415981, GFR, MG, JESSICA, CMP, LIP, TSH, ADIFF, CRP, PHOS, CBC, ANEU #### [address] [address] Bili Total 0.4 mg/dL Normal 0.2-1.0 [facility] ([place]) Comment on above: Result Comment: Use of this assay is not recommended for patients undergoing treatment with eltrombopag due to the potential for falsely elevated results. Performed By: #### D HEAS, INSLN, CPEP, ANKUR, HCV1, MADYSON, GEOVANNA, GGT, PTH #### [place] [address] #### 006991, VIDH, 329082, GFR, MG, JESSICA, CMP, LIP, TSH, ADIFF, CRP, PHOS, CBC, ANEU #### [address] [address] BUN/Creatinine Ratio 29 ratio High 7-27 [facility] ([place]) Comment on above: Performed By: #### D HEAS, INSLN, CPEP, ANKUR, HCV1, MADYSON, GEOVANNA, GGT, PTH #### [place] [address] #### 660855, VIDH, 066017, GFR, MG, JESSICA, CMP, LIP, TSH, ADIFF, CRP, PHOS, CBC, ANEU #### [address] [address] Calcium [Mass/Vol] 9.3 mg/dL Normal 8.4-10.2 [facility] ([place]) Comment on above: Performed By: #### D HEAS, INSLN, CPEP, ANKUR, HCV1, MADYSON, GEOVANNA, GGT, PTH #### [place] [address] #### 597159, VIDH, 797738, GFR, MG, JESSICA, CMP, LIP, TSH, ADIFF, CRP, PHOS, CBC, ANEU #### [address] [address] Chloride [Moles/Vol] 102 mmol/L Normal 98-107 [facility] ([place]) Comment on above: Performed By: #### Amy RUSSAS, INSLN, CPEP, ANKUR, HCV1, MADYSON, GEOVANNA, GGT, PTH #### [place] [address] #### 238922, VIDH, 159123, GFR, MG, JESSICA, CMP, LIP, TSH, ADIFF, CRP, PHOS, CBC, ANEU #### [address] [address] CO2 [Moles/Vol] 26 mmol/L Normal 23-31 [facility] ([place]) Comment on above: Performed By: #### Amy RUSSAS, INSLN, CPEP, ANKUR, HCV1, MADYSON, GEOVANNA, GGT, PTH #### [place] [address] #### 395185, VIDH, 607932, GFR, MG, JESSICA, CMP, LIP, TSH, ADIFF, CRP, PHOS, CBC, ANEU #### [address] [address] Creatinine [Mass/Vol] 0.93 mg/dL Normal 0.55-1.02 [facility] ([place]) Comment on above: Performed By: #### Amy HEAS, INSLN, CPEP, ANKUR, HCV1, MADYSON, GEOVANNA, GGT, PTH #### [place] [address] #### 948912, VIDH, 773218, GFR, MG, JESSICA, CMP, LIP, TSH, ADIFF, CRP, PHOS, CBC, ANEU #### [address] [address] Electrolyte Balance 11.0 mEq/L Normal 4.0-15.0 [facility] ([place]) Comment on above: Performed By: #### D HEAS, INSLN, CPEP, ANKUR, HCV1, MADYSON, GEOVANNA, GGT, PTH #### [address] [address] #### 870229, VIDH, 596489, GFR, MG, JESSICA, CMP, LIP, TSH, ADIFF, CRP, PHOS, CBC, ANEU #### [address] [address] Globulin 4.5 G/dL Normal [facility] ([place]) Comment on above: Performed By: #### D HEAS, INSLN, CPEP, ANKUR, HCV1, MADYSON, GEOVANNA, GGT, PTH #### [place] [address] #### 955427, VIDH, 680916, GFR, MG, JESSICA, CMP, LIP, TSH, ADIFF, CRP, PHOS, CBC, ANEU #### [address] [address] Glucose [Mass/Vol] 179 mg/dL High 83-110 [facility] ([place]) Comment on above: Performed By: #### D HEAS, INSLN, CPEP, ANKUR, HCV1, MADYSON, GEOVANNA, GGT, PTH #### [place] [address] #### 110907, VIDH, 898214, GFR, MG, JESSICA, CMP, LIP, TSH, ADIFF, CRP, PHOS, CBC, ANEU #### [address] [address] Potassium [Moles/Vol] 5.1 mmol/L Normal 3.5-5.1 [facility] ([place]) Comment on above: Performed By: #### D HEAS, INSLN, CPEP, ANKUR, HCV1, MADYSON, GEOVANNA, GGT, PTH #### [place] [address] #### 302864, VIDH, 873222, GFR, MG, JESSICA, CMP, LIP, TSH, ADIFF, CRP, PHOS, CBC, ANEU #### [address] [address] Sodium [Moles/Vol] 139 mmol/L Normal 136-145 [facility] ([place]) Comment on above: Performed By: #### Amy RUSSAS, INSLN, CPEP, ANKUR, HCV1, MADYSON, GEOVANNA, GGT, PTH #### [place] [address] #### 616365, VIDH, 360799, GFR, MG, JESSICA, CMP, LIP, TSH, ADIFF, CRP, PHOS, CBC, ANEU #### [address] [address] Total Protein 8.4 G/dL High 6.4-8.2 [facility] ([place]) Comment on above: Performed By: #### Amy RSUSAS, INSLN, CPEP, ANKUR, HCV1, MADYSON, GEOVANNA, GGT, PTH #### [place] [address] #### 047781, VIDH, 861241, GFR, MG, JESSICA, CMP, LIP, TSH, ADIFF, CRP, PHOS, CBC, ANEU #### [address] [address] Urea nitrogen [Mass/Vol] 27 mg/dL High 7-18 [facility] ([place]) Comment on above: Performed By: #### Amy BOWMAN, INSLN, CPEP, ANKUR, HCV1, MADYSON, GEOVANNA, GGT, PTH #### [place] [address] #### 417186, VIDH, 068798, GFR, MG, JESSICA, CMP, LIP, TSH, ADIFF, CRP, PHOS, CBC, ANEU #### [address] [address] FT3on 11-17-2023 Free T3 [Mass/Vol] 2.65 pg/mL Normal 2.30-4.00 [facility] ([place]) Comment on above: Performed By: #### Amy HEAS, INSLN, CPEP, ANKUR, HCV1, MADYSON, GEOVANNA, GGT, PTH #### [place] [address] #### 185063, VIDH, 899056, GFR, MG, JESSICA, CMP, LIP, TSH, ADIFF, CRP, PHOS, CBC, ANEU #### [place] [address] [place], [place] [address] FT4on 11-17-2023 Free T4 [Mass/Vol] 1.25 ng/dL Normal 0.76-1.46 [facility] ([place]) Comment on above: Performed By: #### D HEAS, INSLN, CPEP, ANKUR, HCV1, MADYSON, GEOVANNA, GGT, PTH #### [address] [address] #### 016461, VIDH, 188348, GFR, MG, JESSICA, CMP, LIP, TSH, ADIFF, CRP, PHOS, CBC, ANEU #### [place] [address] [place], [place] [address] LABORATORYOrdered By: SYSTEM SYSTEM on 11-17-2023 Free [...] or higher Very high risk LABORATORYOrdered By: LABCOR P CONTRIBUTOR_SYSTEM on 11-17-2023 Renin Activity (LC) 1.174 ng/mL/hr Invalid Interpretation Code 0.167-5.380 [facility] SS Comment on above: Result Comment: This test was developed and its performance characteristics determined by [facility]. It has not been cleared or approved by the Food and Drug Administration. Performed At: [facility] [address] [id number] Rayshawn Paul MD Ph:[phone] LIPIDon 11-17-2023 Cholesterol [Mass/Vol] 139 mg/dL Normal 0-200 [facility] ([place]) Comment on above: Result Comment: Chol esterol Reference Interval: Less than 200 Desirable 200-239 Borderline high risk 240 and above High risk Performed By: #### D HEAS, INSLN, CPEP, ANKUR, HCV1, MADYSON, GEOVANNA, GGT, PTH #### [place] [address] #### 756689, VIDH, 004800, GFR, MG, JESSICA, CMP, LIP, TSH, ADIFF, CRP, PHOS, CBC, ANEU #### [address] [address] Cholesterol in HDL [Mass/Vol] 49 mg/dL Normal 40-60 [facility] ([place]) Comment on above: Performed By: #### D HEAS, INSLN, CPEP, ANKUR, HCV1, MADYSON, GEOVANNA, GGT, PTH #### [place] [address] #### 696034, VIDH, 839916, GFR, MG, JESSICA, CMP, LIP, TSH, ADIFF, CRP, PHOS, CBC, ANEU #### [address] [address] Cholesterol in LDL [Mass/Vol] 69 mg/dL Normal 0-130 [facility] ([place]) Comment on above: Performed By: #### D HEAS, INSLN, CPEP, ANKUR, HCV1, MADYSON, GEOVANNA, GGT, PTH #### [place] [address] #### 072506, VIDH, 429992, GFR, MG, JESSICA, CMP, LIP, TSH, ADIFF, CRP, PHOS, CBC, ANEU #### [address] [address] Triglyceride [Mass/Vol] 104 mg/dL Normal 0-150 A [facility] ([place]) Comment on above: Result Comment: Trig lyceride Reference Interval: Less than 150 Normal 150-199 Borderline high risk 200-499 High risk 500 or higher Very high risk Performed By: #### D HEAS, INSLN, CPEP, ANKUR, HCV1, MADYSON, GEOVANNA, GGT, PTH #### [place] [address] #### 308371, VIDH, 058229, GFR, MG, JESSICA, CMP, LIP, TSH, ADIFF, CRP, PHOS, CBC, ANEU #### [address] [address] MGon 11-17-2023 Magnesium [Mass/Vol] 1.6 mg/dL Low 1.8-2.4 [facility] ([place]) Comment on above: Performed By: #### D PETRONAAS, INSLN, CPEP, ANKUR, HCV1, MADYSON, GEOVANNA, GGT, PTH #### [place] [address] #### 356779, VIDH, 658435, GFR, MG, JESSICA, CMP, LIP, TSH, ADIFF, CRP, PHOS, CBC, ANEU #### [address] [address] PTHon 11-17-2023 PTH, Intact 17.0 pg/mL Low 18.5-88.0 [facility] ([place]) Comment on above: Performed By: #### D HEAS, INSLN, CPEP, ANKUR, HCV1, MADYSON, GEOVANNA, GGT, PTH #### [place] [address] #### 908685, VIDH, 702019, GFR, MG, JESSICA, CMP, LIP, TSH, ADIFF, CRP, PHOS, CBC, ANEU #### [address] [place] [address] TSHon 11-17-2023 TSH Qn 0.88 m[IU]/L Normal 0.36-3.74 [facility] ([place]) Comment on above: Performed By: #### D HEAS, INSLN, CPEP, ANKUR, HCV1, MADYSON, GEOVANNA, GGT, PTH #### [place] [address] #### 190312, VIDH, 293606, GFR, MG, JESSICA, CMP, LIP, TSH, ADIFF, CRP, PHOS, CBC, ANEU #### [place] [address] VIDHon 11-17-2023 Vit. D 25-Hydroxy 38.4 ng/mL Normal [facility] ([place]) Comment on above: Result Comment: Inte rpretive Values Based on Total 25(OH) Vitamin D: Deficient <20 ng/mL Insufficient 20 - <30 ng/mL Sufficient 30-100 ng/mL Performed By: #### D PETRONAAS, INSLN, CPEP, ANKUR, HCV1, MADYSON, GEOVANNA, GGT, PTH #### [place] [address] #### 178198, VIDH, 051587, GFR, MG, JESSICA, CMP, LIP, TSH, ADIFF, CRP, PHOS, CBC, ANEU #### [place] [id number] aTPOon 11-17-2023 anti-Thyroid Peroxidase 53 units/ml Normal 0-60 [facility] ([place]) Comment on above: Result Comment: No te - New Reference Range in effect 20 Performed By: #### D HEAS, INSLN, CPEP, ANKUR, HCV1, MADYSON, GEOVANNA, GGT, PTH #### [place] [address] #### 426789, VIDH, 391447, GFR, MG, JESSICA, CMP, LIP, TSH, ADIFF, CRP, PHOS, CBC, ANEU #### [place] [id number] Blood type and Indirect anti body screen panel (Bld)on 11-07-2023 ABO group Nom (Bld) A [facility] Blood group antibody screen Ql Negative [facility] D Ag Ql (Bld) Positive [facility] Comment on above: 2nd ABO test require d. Order and Collect VERAB [facility] ABO group Nom (Bld) A Normal [facility] Comment on above: Order Comment: Patie nt admitted for surgery associated with significant blood loss OR per blood bank request. Performed By: #### 3 4532-2 #### YASMIN Loving ([id number]) [facility] ([facility]) [address] [place] [address] Blood group antibody screen Ql Negative Normal [facility] Comment on above: Order Comment: Patie nt admitted for surgery associated with significant blood loss OR per blood bank request. Performed By: #### 3 4532-2 #### YASMIN Loving ([id number]) [facility] ([facility]) [address] [place] [address] D Ag Ql (Bld) Positive [facility] Comment on above: Order Comment: Patie nt admitted for surgery associated with significant blood loss OR per blood bank request. Result Comment: 2nd ABO test required. Order and Collect VERAB Performed By: #### 3 4532-2 #### YASMIN Loving ([id number]) [facility] ([facility]) [address] [place] [address] FL FLUORO IMAGES NO CHARGEon 11-07-2023 FL FLUORO IMAGES NO CHARGE These images are not reportable by radiology and will not be interpreted by Radiologists. Normal [facility] Glucose Test strip manual (B ld) [Mass/Vol]on 11-07-2023 Glucose [Mass/Vol] 159 mg/dL High 74 - 99 mg/dL [facility] Interpretation and review of laboratory results Abnormal [facility] Glucose [Mass/Vol] 159 mg/dL High 74-99 [facility] Comment on above: Performed By: #### 3 4529-8 #### YASMIN Loving ([id number]) [facility] ([facility]) [address] [place] [address] Glucose [Mass/Vol] 162 mg/dL High 74 - 99 mg/dL [facility] Interpretation and review of laboratory results Abnormal [facility] Glucose [Mass/Vol] 162 mg/dL High 74-99 [facility] Comment on above: Performed By: #### 2 341-6 #### YASMIN Loving ([id number]) [facility] ([facility]) [address] [place] [address] Non-dogger cytology studyon Non-gynecological cytology method study Pathology report.total SEE COMMENT Non-gynecologic Cytology Case: [id number] Authorizing Provider: Braden Hopkins MD MPH Collected: 11/07/2023 1147 Ordering Location: [facility] Received: 11/07/2023[facility] Pathologist: Rashida Moncada MD Specimen: URETER WASH RIGHT, Right Ureter Fluid for cytology Path report.final diagnosis SEE COMMENT A. URETER WASH RIGHT - Right Ureter Fluid for cytology -- Rare clusters of atypical urothelial cells present; origin from urothelial neoplasm cannot be excluded. -- Please also see concurrent surgical biopsy report [id number]. Laboratory comment SEE COMMENT Slide(s) initially screened by KATJA HUIZAR at [address] [address] By the signature on this report, the [...] Block) A1-1 Pap Stain NGYN ThinPrep Normal [facility] Comment on above: Order Comment: The A PTT is no longer used for monitoring Unfractionated Heparin Therapy. For monitoring Heparin Therapy, use the Heparin Assay. Surgical pathology studyon 0 11-07-2023 Surgical pathology study Pathology report.total SEE COMMENT Surgical Pathology Case: [id number] Authorizing Provider: Braden Hopkins MD MPH Collected: 11/07/2023 1225 Ordering Location: [facility] Received: 11/08/2023 0145 [facility] OR Pathologist: Johny Nazario MD Specimen: URETER [...] to Dr. Edgar Merino (Department of pathology, [facility]). The following comment reflects his opinion on [...] is submitted in toto in 2 cassettes. [facility] Comment on above: Order Comment: The [...] Status: Final result Abnormal: Yes Resulting Lab: [facility] [address] [place], [place] [id number] CULTURE >100,000 Escherichia coli (Abnormal) SUSCEPTIBILITY Escherichia coli METHOD MICROSCAN ------- AMPICILLIN <=8.000 mcg/mL Susceptible CEFAZOLIN <=2 mcg/mL Susceptible CEFAZOLIN (UNCOMPLICATED UTIS ONLY) <=2 mcg/mL Susceptible CIPROFLOXACIN >2.000 mcg/mL Resistant GENTAMICIN <=2.000 mcg/mL Susceptible NITROFURANTOIN <=32 mcg/mL Susceptible PIPERACILLIN/TAZOBAC FARLEY <=8.000 mcg/mL Susceptible TRIMETHOPRIM/SULFAME THOXAZOLE <=2/38 mcg/mL Susceptible Abnormal [facility] Comment on above: Performed By: #### 6 30-4 #### YASMIN Loving ([id number]) [facility] ([facility]) [address] [place], [place] [id number] Basic metabolic 2000 panelon 11-03-2023 Anion gap [Moles/Vol] 15 mmol/L Normal 10-20 [facility] Comment on above: Performed By: #### 2 4321-2 #### YASMIN Loving ([id number]) [facility] ([facility]) [address] [place] [address], [place] [address] Calcium [Mass/Vol] 9.9 mg/dL Normal 8.6-10.6 [facility] Comment on above: Performed By: #### 2 4321-2 #### YASMIN MCKENZIE L ([id number]) [facility] ([facility]) [address] [place] [address] Chloride [Moles/Vol] 102 mmol/L Normal 98-[address] [facility] Comment on above: Performed By: #### 2 4321-2 #### YASMIN MCKENZIE L ([id number]) [facility] ([facility]) [address] [place] [address] CO2 [Moles/Vol] 27 mmol/L Normal 21-32 [facility] Comment on above: Performed By: #### 2 4321-2 #### YASMIN MCKENZIE L ([id number]) [facility] ([facility]) [address] [place] [address] Creatinine [Mass/Vol] 0.77 mg/dL Normal 0.50-1.05 [facility] Comment on above: Performed By: #### 2 4321-2 #### YASMIN MCKENZIE L ([id number]) [facility] ([facility]) [address] [place] [address] Glomerular filtration rate/1.73 sq M.predicted 80 mL/min/1.73m*2 Normal >60 [facility] Comment on above: Result Comment: Calc ulations of estimated GFR are performed using the 2020 CKD-EPI Study Refit equation without the race variable for the IDMS-Traceable creatinine methods. https://jasn.asnjournals.org/content/early//ASN.366 9488431 Performed By: #### 2 4321-2 #### YASMIN MCKENZIE L ([id number]) [facility] ([facility]) [address] [place] [address] Glucose [Mass/Vol] 148 mg/dL High 74-99 [facility] Comment on above: Performed By: #### 2 4321-2 #### YASMIN Loving ([id number]) [facility] ([facility]) [address] [place] [address] Potassium [Moles/Vol] 4.8 mmol/L Normal 3.5-5.3 [facility] Comment on above: Performed By: #### 2 4321-2 #### YASMIN Loving ([id number]) [facility] ([facility]) [address] [place] [address] Sodium [Moles/Vol] 139 mmol/L Normal 136-145 [facility] Comment on above: Performed By: #### 2 4321-2 #### YASMIN Loving ([id number]) [facility] ([facility]) [address] [place] [address] Urea nitrogen [Mass/Vol] 28 mg/dL High 6-23 [facility] Comment on above: Performed By: #### 2 4321-2 #### YASMIN Loving ([id number]) [facility] ([facility]) [address] [place] [address] CBC panel Auto (Bld)on 11-02 Erythrocyte distribution width (RBC) [Ratio] 13.9 % Normal 11.5-14.5 [facility] Comment on above: Performed By: #### 5 8410-2 #### YASMIN Loving ([id number]) [facility] ([facility]) [address] [place] [address] Hematocrit (Bld) [Volume fraction] 46.8 % High 36.0-46.0 [facility] Comment on above: Performed By: #### 5 8410-2 #### YASMIN Loving ([id number]) [facility] ([facility]) [address] [place] [address] 68685 Hemoglobin (Bld) [Mass/Vol] 14.9 g/dL Normal 12.0-16.0 [facility] Comment on above: Performed By: #### 5 8410-2 #### YASMIN Loving ([id number]) [facility] ([facility]) [address] [place] [address] MCH (RBC) [Entitic mass] 28.5 pg Normal 26.0-34.0 [facility] Comment on above: Performed By: #### 5 8410-2 #### YASMIN Loving ([id number]) [facility] ([facility]) [id number] [place] [address] 63371 MCHC (RBC) [Mass/Vol] 31.8 g/dL Low 32.0-36.0 [facility] Comment on above: Performed By: #### 5 8410-2 #### YASMIN Loving ([id number]) [facility] ([facility]) [address] [place] [address] 79329 MCV (RBC) [Entitic vol] 90 fL Normal 80-100 U [facility] Comment on above: Performed By: #### 5 8410-2 #### YASMIN Loving ([id number]) [facility] ([facility]) [id number] [place] [address] 91074 Nucleated RBC/100 WBC (Bld) [Ratio] 0.0 /100 WBCs Normal 0.0-0.0 [facility] Comment on above: Performed By: #### 5 8410-2 #### YASMIN Loving ([id number]) [facility] ([facility]) [address] [place] [address] 37177 Platelets (Bld) [#/Vol] 336 x10*3/uL Normal 150-450 [facility] Comment on above: Performed By: #### 5 8410-2 #### YASMIN Loving ([id number]) [facility] ([facility]) [id number] [place] [address] 90958 RBC (Bld) [#/Vol] 5.23 x10*6/uL High 4.00-5.[address] [facility] Comment on above: Performed By: #### 5 8410-2 #### YASMIN Loving ([id number]) [facility] ([facility]) [address] [place] [phone] WBC (Bld) [#/Vol] 13.0 x10*3/uL High 4.4-11.[address] [facility] Comment on above: Performed By: #### 5 8410-2 #### YASMIN Loving ([id number]) [facility] ([facility]) [address] [place] [phone] ECG 12-LEADon 11-03-2023 ECG 12-LEAD Ventricular Rate 88 Atrial Rate 88 P-R Interval 130 QRS Duration 70 Q-T Interval 336 QTC Calculation(Bazett) 406 P Clarence 53 R Clarence 48 T Clarence 53 QRS Count 15 Q Onset 225 P Onset 160 P Offset 208 T Offset 393 QTC Fredericia 381 Diagnosis Normal sinus rhythm with sinus arrhythmia Possible Left atrial enlargement Borderline ECG No previous ECGs available Confirmed by Je Smart ([id number]) on 11/09/2023 10:07:53 PM Normal [facility] HbA1c (Bld) [Mass fraction]o n 11-03-2023 Average glucose Estimated from glycated hemoglobin (Bld) [Mass/Vol] 197 mg/dL Normal Not Established [facility] Comment on above: Order Comment: Diagn osis of Diabetes-Adults Non-Diabetic: < or = 5.6% Increased risk for developing diabetes: 5.7-6.4% Diagnostic of diabetes: > or = 6.5% Monitoring of Diabetes Age (y)....................... Therapeutic Goal (%) Adults: >18.........................<7.0 Pediatrics: 13-18...................<7.5 Pediatrics: 7-12....................<8.0 Pediatrics: 0-6..................... 7.5-8.5 [place] [employer]. Diabetes Care 33(S1), Jun 2009 Performed By: #### 4 548-4 #### YASMIN Loving ([id number]) [facility] ([facility]) [id number] [place] [address] 11872 Hemoglobin A1c/Hemoglobin.to tianna 11-03-2023 HbA1c (Bld) [Mass fraction] 8.5 % High see below [facility] Comment on above: Order Comment: Diagn osis of Diabetes-Adults Non-Diabetic: < or = 5.6% Increased risk for developing diabetes: 5.7-6.4% Diagnostic of diabetes: > or = 6.5% Monitoring of Diabetes Age (y)....................... Therapeutic Goal (%) Adults: >18.........................<7.0 Pediatrics: 13-18...................<7.5 Pediatrics: 7-12....................<8.0 Pediatrics: 0-6..................... 7.5-8.5 [place] [employer]. Diabetes Care 33(S1)Jun 2009 Performed By: #### 4 548-4 #### YASMIN Loving ([id number]) [facility] ([facility]) [address] [place] [address] 73621 PT and aPTT panel Coag (PPP) on 11-03-2023 aPTT Coag (PPP) [Time] 37 s Normal 27-38 [facility] Comment on above: Order Comment: The A PTT is no longer used for monitoring Unfractionated Heparin Therapy. For monitoring Heparin Therapy, use the Heparin Assay. Performed By: #### 3 4529-8 #### YASMIN Loving ([id number]) [facility] ([facility]) [address] [place] [address] 78624 INR Coag (PPP) [Relative time] 1.1 Normal 0.9-1.1 [facility] Comment on above: Order Comment: The A PTT is no longer used for monitoring Unfractionated Heparin Therapy. For monitoring Heparin Therapy, use the Heparin Assay. Performed By: #### 3 4529-8 #### YASMIN Loving ([id number]) [facility] ([facility]) [address] [place] [address] 63248 PT Coag (PPP) [Time] 12.4 s Normal 9.8-12.[address] [facility] Comment on above: Order Comment: The A PTT is no longer used for monitoring Unfractionated Heparin Therapy. For monitoring Heparin Therapy, use the Heparin Assay. Performed By: #### 3 4529-8 #### YASMIN Loving ([id number]) [facility] ([facility]) [address] [place] [address] 33292 Urinalysis complete W Reflex Culture panel (U)on 11-03-2023 Appearance (U) Turbid Normal Clear [facility] Comment on above: Performed By: #### 5 8077-9 #### YASMIN Loving ([id number]) [facility] ([facility]) [address] [place] [address] 23882 Bilirubin (U) [Mass/Vol] Negative Normal NEGATIVE [facility] Comment on above: Performed By: #### 5 8077-9 #### YASMIN Loving ([id number]) [facility] ([facility]) [address] [place] [address] 53728 Color (U) Light-Yellow Normal Light-Yellow, Yellow, Dark-Yellow [facility] Comment on above: Performed By: #### 5 8077-9 #### YASMIN Loving ([id number]) [facility] ([facility]) [address] [place] [address] 69604 Glucose Auto test strip (U) [Mass/Vol] Normal Normal Normal [facility] Comment on above: Performed By: #### 5 8077-9 #### YASMIN Loving ([id number]) [facility] ([facility]) [address] [place] [address] 48783 Ketones (U) [Mass/Vol] Negative Normal NEGATIVE [facility] Comment on above: Performed By: #### 5 8077-9 #### YASMIN Loving ([id number]) [facility] ([facility]) [address] [place] [address] 98264 Leukocyte esterase Auto test strip Ql (U) 500 Logan/???L Abnormal NEGATIVE [facility] Comment on above: Performed By: #### 5 8077-9 #### YASMIN Loving ([id number]) [facility] ([facility]) [address] [place] [address] 86926 Nitrite Auto test strip Ql (U) 1+ Abnormal NEGATIVE [facility] Comment on above: Performed By: #### 5 8077-9 #### YASMIN Loving ([id number]) [facility] ([facility]) [address] [place] [address] 22159 pH (U) 6.0 [pH] Normal 5.0, 5.5, 6.0, 6.5, 7.0, 7.5, 8.0 [facility] Comment on above: Performed By: #### 5 8077-9 #### YASMIN Loving ([id number]) [facility] ([facility]) [address] [place] [address] 40447 Protein (U) [Mass/Vol] 30 (1+) Abnormal NEGAT TOÑA, 10 (TRACE), 20 (TRACE) [facility] Comment on above: Performed By: #### 5 8077-9 #### YASMIN Loving ([id number]) [facility] ([facility]) [address] [place] [address] 87253 RBC (U) [#/Vol] 0.2 (2+) Abnormal NEGATIVE [facility] Comment on above: Performed By: #### 5 8077-9 #### YASMIN Loving ([id number]) [facility] ([facility]) [address] [place] [address] 55345 Specific gravity (U) [Rel density] 1.014 Normal 1.005-1.035 [facility] Comment on above: Performed By: #### 5 8077-9 #### YASMIN Loving ([id number]) [facility] ([facility]) [id number] [place] [address] 03199 Urobilinogen (U) [Mass/Vol] Normal Normal Normal [facility] Comment on above: Performed By: #### 5 8077-9 #### AYSMIN Loving ([id number]) [facility] ([facility]) [address] [place] [address] 45455 Urinalysis microscopic panel Auto Ql (U)on 11-03-2023 Bacteria Auto (Urine sed) [#/Area] 1+ /HPF Abnormal NONE SEEN [facility] Comment on above: Performed By: #### 5 3315-8 #### YASMIN Loving ([id number]) [facility] ([facility]) [address] [place] [address] 81498 Epithelial cells.squamous Auto (Urine sed) [#/Area] 1-9 (SPARSE) Normal Reference range not established. [facility] Comment on above: Performed By: #### 5 3315-8 #### YASMIN Loving ([id number]) [facility] ([facility]) [address] [place] [address] 71990 RBC Auto (Urine sed) [#/Area] >20 Abnormal NONE, 1-2, 3-5 [facility] Comment on above: Performed By: #### 5 3315-8 #### YASMIN Loving ([id number]) [facility] ([facility]) [address] [place] [address] 85966 WBC Auto (Urine sed) [#/Area] >50 Abnormal 1-5, NONE [facility] Comment on above: Performed By: #### 5 3315-8 #### YASMIN Loving ([id number]) [facility] ([facility]) [address] [place] [address] 46877 LABORATORYOrdered By: SYSTEM SYSTEM on 09-22-2023 Magnesium [Mass/Vol] 1.5 mg/dL Low 1.8 - 2 .4 mg/dL AO ADM SS MGon 09-22-2023 Magnesium [Mass/Vol] 1.5 mg/dL Low 1.8-2.4 [facility] ([place]) Comment on above: Performed By: #### D AS, INSLN, CPEP, ANKUR, HCV1, MADYSON, GEOVANNA, GGT, PTH #### [place] [address] #### 332122, VIDH, 088789, GFR, MG, JESSICA, CMP, LIP, TSH, ADIFF, CRP, PHOS, CBC, ANEU #### [address] [address] RENINon 08-28-2023 Renin Activity 2.466 ng/mL/hr Normal 0.167-5.380 [facility] ([place]) Comment on above: Result Comment: This test was developed and its performance characteristics determined by [facility]. It has not been cleared or approved by the Food and Drug Administration. Performed At: [address] [id number] Rayshawn Paul MD Ph:[phone] Performed By: #### Amy RUSSAS, INSLN, CPEP, ANKUR, HCV1, MADYSON, GEOVANNA, GGT, PTH #### [place] [address] #### 821859, VIDH, 964263, GFR, MG, JESSICA, CMP, LIP, TSH, ADIFF, CRP, PHOS, CBC, ANEU #### [address] [address] [id number] 08-28-2023 Vitamin B6 Lvl 3.6 UG/L Normal 3.4-65.2 [facility] ([place]) Comment on above: Result Comment: This test was developed and its performance characteristics determined by [facility]. It has not been cleared or approved by the Food and Drug Administration. Deficiency: <3.4 Marginal: 3.4 - 5.1 Adequate: >5.1 Performed At: [address] [id number] Rayshawn Paul MD Ph:[phone] Performed By: #### Amy HEAS, INSLN, CPEP, ANKUR, HCV1, MADYSON, GEOVANNA, GGT, PTH #### [place] [address] #### 785888, VIDH, 604114, GFR, MG, JESSICA, CMP, LIP, TSH, ADIFF, CRP, PHOS, CBC, ANEU #### [address] [address] .ANATon 08-25-2023 MADYSON Pattern 1 Homogeneous Normal [facility] ([place]) Comment on above: Result Comment: At [facility], an MADYSON titer of less than 160 is not considered suggestive of significant rheumatoid disease. If clinical suspicion is high, suggest repeat testing in 1-2 months. Performed By: #### D HEAS, INSLN, CPEP, ANKUR, HCV1, MADYSON, GEOVANNA, GGT, PTH #### [address] [address] #### 724318, VIDH, 037756, GFR, MG, JESSICA, CMP, LIP, TSH, ADIFF, CRP, PHOS, CBC, ANEU #### [address] [address] MADYSON Titer 1 40 Normal [facility] ([place]) Comment on above: Performed By: #### D HEAS, INSLN, CPEP, ANKUR, HCV1, MADYSON, GEOVANNA, GGT, PTH #### [address] [address] #### 346220, VIDH, 904418, GFR, MG, JESSICA, CMP, LIP, TSH, ADIFF, CRP, PHOS, CBC, ANEU #### [address] [address] ANAon 08-25-2023 MADYSON See Titer Normal Neg 40 [facility]) Comment on above: Result Comment: MADYSON Screen and Titer methodology is an immunofluorescent technique utilizing Hep2 Substrate. Performed By: #### D HEAS, INSLN, CPEP, ANKUR, HCV1, MADYSON, GEOVANNA, GGT, PTH #### [place] [address] #### 727464, VIDH, 327413, GFR, MG, JESSICA, CMP, LIP, TSH, ADIFF, CRP, PHOS, CBC, ANEU #### [address] [address] .Auto Diffon 08-24-2023 Basophil, Absolute 0.1 10 3/mcL Normal 0.0-0.2 [facility] ([place]) Comment on above: Performed By: #### Amy RUSSAS, INSLN, CPEP, ANKUR, HCV1, MADYSON, GEOVANNA, GGT, PTH #### [place] [address] #### 039926, VIDH, 874335, GFR, MG, JESSICA, CMP, LIP, TSH, ADIFF, CRP, PHOS, CBC, ANEU #### [address] [address] Basophils/100 WBC (Bld) 0.5 % Normal 0.0-2.5 A [facility] ([place]) Comment on above: Performed By: #### Amy BOWMAN, INSLN, CPEP, ANKUR, HCV1, MADYSON, GEOVANNA, GGT, PTH #### [place] [address] #### 011162, VIDH, 220056, GFR, MG, JESSICA, CMP, LIP, TSH, ADIFF, CRP, PHOS, CBC, ANEU #### [address] [address] Eosinophil, Absolute 0.0 10 3/mcL Normal 0.0-0.4 [facility] ([place]) Comment on above: Performed By: #### Amy RUSSAS, INSLN, CPEP, ANKUR, HCV1, MADYSON, GEOVANNA, GGT, PTH #### [place] [address] #### 521235, VIDH, 667907, GFR, MG, JESSICA, CMP, LIP, TSH, ADIFF, CRP, PHOS, CBC, ANEU #### [address] [address] Eosinophils/100 WBC (Bld) 0.0 % Normal 0.0-7.0 [facility] ([place]) Comment on above: Performed By: #### Amy HEAS, INSLN, CPEP, ANKUR, HCV1, MADYSON, GEOVANNA, GGT, PTH #### [place] [address] #### 485240, VIDH, 677129, GFR, MG, JESSICA, CMP, LIP, TSH, ADIFF, CRP, PHOS, CBC, ANEU #### [address] [address] Lymphocyte, Absolute 2.6 10 3/mcL Normal 0.8-3.9 [facility] ([place]) Comment on above: Performed By: #### D HEAS, INSLN, CPEP, ANKUR, HCV1, MADYSON, GEOVANNA, GGT, PTH #### [place] [address] #### 413014, VIDH, 170102, GFR, MG, JESSICA, CMP, LIP, TSH, ADIFF, CRP, PHOS, CBC, ANEU #### [address] [address] Lymphocytes/100 WBC (Bld) 17.4 % Normal 10.0-50.0 [facility] ([place]) Comment on above: Performed By: #### Amy HEAS, INSLN, CPEP, ANKUR, HCV1, MADYSON, GEOVANNA, GGT, PTH #### [place] [address] #### 785203, VIDH, 645727, GFR, MG, JESSICA, CMP, LIP, TSH, ADIFF, CRP, PHOS, CBC, ANEU #### [address] [address] Monocyte, Absolute 0.7 10 3/mcL Normal 0.2-1.0 [facility] ([place]) Comment on above: Performed By: #### D HEAS, INSLN, CPEP, ANKUR, HCV1, MADYSON, GEOVANNA, GGT, PTH #### [place] [address] #### 910474, VIDH, 225706, GFR, MG, JESSICA, CMP, LIP, TSH, ADIFF, CRP, PHOS, CBC, ANEU #### [address] [address] Monocytes/100 WBC (Bld) 4.5 % Normal 1.7-13.0 A [facility] ([place]) Comment on above: Performed By: #### D HEAS, INSLN, CPEP, ANKUR, HCV1, MADYSON, GEOVANNA, GGT, PTH #### [address] [address] #### 242262, VIDH, 886532, GFR, MG, JESSICA, CMP, LIP, TSH, ADIFF, CRP, PHOS, CBC, ANEU #### [address] [address] Neutrophils/100 WBC (Bld) 77.6 % Normal 37.0-80.0 [facility] ([place]) Comment on above: Performed By: #### Amy RUSSAS, INSLN, CPEP, ANKUR, HCV1, MADYSON, GEOVANNA, GGT, PTH #### [place] [id number] #### 082757, VIDH, 578579, GFR, MG, JESSICA, CMP, LIP, TSH, ADIFF, CRP, PHOS, CBC, ANEU #### [address] [address] .GFRon 08-24-2023 GFR 62 ml/min/1.73sqm Normal [facility] ([place]) Comment on above: Result Comment: GFR Population [...] ANKUR, HCV1, MADYSON, GEOVANNA, GGT, PTH #### [address] [address] #### 342331, VIDH, 817559, GFR, MG, JESSICA, CMP, LIP, TSH, ADIFF, CRP, PHOS, CBC, ANEU #### [address] [address] GFR Non- 51 ml/min/1.73sqm Normal [facility] ([place]) Comment on above: Result Comment: GFR Population [...] mL/min/1.73 square meters Performed By: #### Amy HEAS, INSLN, CPEP, ANKUR, HCV1, MADYSON, GEOVANNA, GGT, PTH #### [place] [address] #### 124455, VIDH, 654762, GFR, MG, JESSICA, CMP, LIP, TSH, ADIFF, CRP, PHOS, CBC, ANEU #### [address] [address] .NEUABSon 08-24-2023 Neutrophil, Absolute 11.4 10 3/mcL High 2.9-6.2 A [facility] ([place]) Comment on above: Performed By: #### Amy HEAS, INSLN, CPEP, ANKUR, HCV1, MADYSON, GEOVANNA, GGT, PTH #### [place] [address] #### 307613, VIDH, 056693, GFR, MG, JESSICA, CMP, LIP, TSH, ADIFF, CRP, PHOS, CBC, ANEU #### [address] [address] AMYon 08-24-2023 Amylase [Catalytic activity/Vol] 47 U/L Normal 25-115 [facility] ([place]) Comment on above: Performed By: #### D HEAS, INSLN, CPEP, ANKUR, HCV1, MADYSON, GEOVANNA, GGT, PTH #### [place] [address] #### 220448, VIDH, 251401, GFR, MG, JESSICA, CMP, LIP, TSH, ADIFF, CRP, PHOS, CBC, ANEU #### [address] [address] CBCon 08-24-2023 Erythrocyte distribution width (RBC) [Ratio] 14.3 % Normal 11.5-14.5 [facility] ([place]) Comment on above: Performed By: #### Amy BOWMAN, INSLN, CPEP, ANKUR, HCV1, MADYSON, GEOVANNA, GGT, PTH #### [place] [address] #### 186533, VIDH, 968854, GFR, MG, JESSICA, CMP, LIP, TSH, ADIFF, CRP, PHOS, CBC, ANEU #### [place] [id number] Hematocrit (Bld) [Volume fraction] 37.0 % Normal 37.0-47.0 [facility] ([place]) Comment on above: Performed By: #### Aym BOWMAN, INSLN, CPEP, ANKUR, HCV1, MADYSON, GEOVANNA, GGT, PTH #### [place] [address] #### 672021, VIDH, 195088, GFR, MG, JESSICA, CMP, LIP, TSH, ADIFF, CRP, PHOS, CBC, ANEU #### [address] [address] Hgb 12.7 G/dL Normal 12.0-16.0 [facility] ([place]) Comment on above: Performed By: #### D PETRONAAS, INSLN, CPEP, ANKUR, HCV1, MADYSON, GEOVANNA, GGT, PTH #### [place] [address] #### 088404, VIDH, 807299, GFR, MG, JESSICA, CMP, LIP, TSH, ADIFF, CRP, PHOS, CBC, ANEU #### [address] [address] MCH (RBC) [Entitic mass] 30.7 pg Normal 27.0-31.2 [facility] ([place]) Comment on above: Performed By: #### Amy RUSSAS, INSLN, CPEP, ANKUR, HCV1, MADYSON, GEOVANNA, GGT, PTH #### [place] [address] #### 453931, VIDH, 754864, GFR, MG, JESSICA, CMP, LIP, TSH, ADIFF, CRP, PHOS, CBC, ANEU #### [address] [address] MCHC 34.3 G/dL Normal 33.0-37.0 [facility] ([place]) Comment on above: Performed By: #### Amy BOWMAN, INSLN, CPEP, ANKUR, HCV1, MADYSON, GEOVANNA, GGT, PTH #### [place] [address] #### 166477, VIDH, 274140, GFR, MG, JESSICA, CMP, LIP, TSH, ADIFF, CRP, PHOS, CBC, ANEU #### [address] [address] MCV (RBC) [Entitic vol] 89.4 fL Normal 80.0-94.0 A [facility] ([place]) Comment on above: Performed By: #### Amy BOWMAN, INSLN, CPEP, ANKUR, HCV1, MADYSON, GEOVANNA, GGT, PTH #### [place] [address] #### 403739, VIDH, 496964, GFR, MG, JESSICA, CMP, LIP, TSH, ADIFF, CRP, PHOS, CBC, ANEU #### [address] [address] Platelet 386 10 3/mcL Normal 130-400 [facility] ([place]) Comment on above: Performed By: #### Amy RUSSAS, INSLN, CPEP, ANKUR, HCV1, MADYSON, GEOVANNA, GGT, PTH #### [place] [address] #### 617392, VIDH, 567280, GFR, MG, JESSICA, CMP, LIP, TSH, ADIFF, CRP, PHOS, CBC, ANEU #### [address] [address] Platelet mean volume (Bld) [Entitic vol] 7.5 fL Normal 7.4-10.4 [facility] ([place]) Comment on above: Performed By: #### Amy HEAS, INSLN, CPEP, ANKUR, HCV1, MADYSON, GEOVANNA, GGT, PTH #### [address] [address] #### 181108, VIDH, 497522, GFR, MG, JESSICA, CMP, LIP, TSH, ADIFF, CRP, PHOS, CBC, ANEU #### [address] [address] RBC 4.14 10 6/mcL Low 4.20-5.40 [facility] ([place]) Comment on above: Performed By: #### Amy RUSSAS, INSLN, CPEP, ANKUR, HCV1, MADYSON, GEOVANNA, GGT, PTH #### [address] [address] #### 053185, VIDH, 746076, GFR, MG, JESSICA, CMP, LIP, TSH, ADIFF, CRP, PHOS, CBC, ANEU #### [address] [address] WBC 14.7 10 3/mcL High 4.6-10.8 [facility] ([place]) Comment on above: Performed By: #### Amy HEAS, INSLN, CPEP, ANKUR, HCV1, MADYSON, GEOVANNA, GGT, PTH #### [address] [address] #### 262497, VIDH, 213342, GFR, MG, JESSICA, CMP, LIP, TSH, ADIFF, CRP, PHOS, CBC, ANEU #### [address] [address] CMPon 08-24-2023 Albumin Level 3.6 G/dL Normal 3.4-4.8 [facility] ([place]) Comment on above: Performed By: #### D HEAS, INSLN, CPEP, ANKUR, HCV1, MADYSON, GEOVANNA, GGT, PTH #### [place] [address] #### 327035, VIDH, 353980, GFR, MG, JESSICA, CMP, LIP, TSH, ADIFF, CRP, PHOS, CBC, ANEU #### [address] [address] Albumin/Globulin [Mass ratio] 0.9 {ratio} Low 1.1-2.5 [facility] ([place]) Comment on above: Performed By: #### D PETRONAAS, INSLN, CPEP, ANKUR, HCV1, MADYSON, GEOVANNA, GGT, PTH #### [place] [address] #### 006698, VIDH, 824542, GFR, MG, JESSICA, CMP, LIP, TSH, ADIFF, CRP, PHOS, CBC, ANEU #### [address] [address] ALP [Catalytic activity/Vol] 60 U/L Normal 40-135 [facility] ([place]) Comment on above: Performed By: #### D PETRONAAS, INSLN, CPEP, ANKUR, HCV1, MADYSON, GEOVANNA, GGT, PTH #### [place] [address] #### 735378, VIDH, 522932, GFR, MG, JESSICA, CMP, LIP, TSH, ADIFF, CRP, PHOS, CBC, ANEU #### [address] [address] ALT [Catalytic activity/Vol] 20 U/L Normal 14-59 [facility] ([place]) Comment on above: Performed By: #### D HEAS, INSLN, CPEP, ANKUR, HCV1, MADYSON, GEOVANNA, GGT, PTH #### [place] [address] #### [id number], VIDH, 599125, GFR, MG, JESSICA, CMP, LIP, TSH, ADIFF, CRP, PHOS, CBC, ANEU #### [address] [address] AST [Catalytic activity/Vol] 16 U/L Normal 10-40 [facility] ([place]) Comment on above: Performed By: #### D HEAS, INSLN, CPEP, ANKUR, HCV1, MADYSON, GEOVANNA, GGT, PTH #### [place] [address] #### [id number], VIDH, 495968, GFR, MG, JESSICA, CMP, LIP, TSH, ADIFF, CRP, PHOS, CBC, ANEU #### [address] [address] Bili Total 0.6 mg/dL Normal 0.2-1.0 [facility] ([place]) Comment on above: Result Comment: Use of this assay is not recommended for patients undergoing treatment with eltrombopag due to the potential for falsely elevated results. Performed By: #### D PETRONAAS, INSLN, CPEP, ANKUR, HCV1, MADYSON, GEOVANNA, GGT, PTH #### [place] [address] #### [id number], VIDH, 740264, GFR, MG, JESSICA, CMP, LIP, TSH, ADIFF, CRP, PHOS, CBC, ANEU #### [address] [address] BUN/Creatinine Ratio 18 ratio Normal 7-27 [facility] ([place]) Comment on above: Performed By: #### D HEAS, INSLN, CPEP, ANKUR, HCV1, MADYSON, GEOVANNA, GGT, PTH #### [place] [address] #### [id number], VIDH, 679611, GFR, MG, JESSICA, CMP, LIP, TSH, ADIFF, CRP, PHOS, CBC, ANEU #### [address] [address] Calcium [Mass/Vol] 9.3 mg/dL Normal 8.4-10.2 [facility] ([place]) Comment on above: Performed By: #### D HEAS, INSLN, CPEP, ANKUR, HCV1, MADYSON, GEOVANNA, GGT, PTH #### [address] [address] #### [id number], VIDH, 356778, GFR, MG, JESSICA, CMP, LIP, TSH, ADIFF, CRP, PHOS, CBC, ANEU #### [address] [address] Chloride [Moles/Vol] 100 mmol/L Normal 98-107 [facility] ([place]) Comment on above: Performed By: #### D HEAS, INSLN, CPEP, ANKUR, HCV1, MADYSON, GEOVANNA, GGT, PTH #### [address] [address] #### 281534, VIDH, 740103, GFR, MG, JESSICA, CMP, LIP, TSH, ADIFF, CRP, PHOS, CBC, ANEU #### [address] [address] CO2 [Moles/Vol] 26 mmol/L Normal 23-31 [facility] ([place]) Comment on above: Performed By: #### D HEAS, INSLN, CPEP, ANKUR, HCV1, MADYSON, GEOVANNA, GGT, PTH #### [place] [address] #### [id number], VIDH, 473645, GFR, MG, JESSICA, CMP, LIP, TSH, ADIFF, CRP, PHOS, CBC, ANEU #### [address] [address] Creatinine [Mass/Vol] 1.05 mg/dL High 0.55-1.02 [facility] ([place]) Comment on above: Performed By: #### D HEAS, INSLN, CPEP, NAKUR, HCV1, MADYSON, GEOVANNA, GGT, PTH #### [place] [address] #### [id number], VIDH, 298381, GFR, MG, JESSICA, CMP, LIP, TSH, ADIFF, CRP, PHOS, CBC, ANEU #### [address] [address] Electrolyte Balance 16.0 mEq/L High 4.0-15.0 [facility] ([place]) Comment on above: Performed By: #### D HEAS, INSLN, CPEP, ANKUR, HCV1, MADYSON, GEOVANNA, GGT, PTH #### [place] [address] #### [id number], VIDH, 638251, GFR, MG, JESSICA, CMP, LIP, TSH, ADIFF, CRP, PHOS, CBC, ANEU #### [address] [address] Globulin 4.0 G/dL Normal [facility] ([place]) Comment on above: Performed By: #### D HEAS, INSLN, CPEP, ANKUR, HCV1, MADYSON, GEOVANNA, GGT, PTH #### [place] [address] #### [id number], VIDH, 803692, GFR, MG, JESSICA, CMP, LIP, TSH, ADIFF, CRP, PHOS, CBC, ANEU #### [address] [address] Glucose [Mass/Vol] 399 mg/dL High 83-110 [facility] ([place]) Comment on above: Performed By: #### D PETRONAAS, INSLN, CPEP, ANKUR, HCV1, MADYSON, GEOVANNA, GGT, PTH #### [place] [address] #### [id number], VIDH, 632029, GFR, MG, JESSICA, CMP, LIP, TSH, ADIFF, CRP, PHOS, CBC, ANEU #### [address] [address] Potassium [Moles/Vol] 5.4 mmol/L High 3.5-5.1 [facility] ([place]) Comment on above: Performed By: #### D HEAS, INSLN, CPEP, ANKUR, HCV1, MADYSON, GEOVANNA, GGT, PTH #### [place] [address] #### [id number], VIDH, 960314, GFR, MG, JESSICA, CMP, LIP, TSH, ADIFF, CRP, PHOS, CBC, ANEU #### [address] [address] Sodium [Moles/Vol] 142 mmol/L Normal 136-145 [facility] ([place]) Comment on above: Performed By: #### D HEAS, INSLN, CPEP, ANKUR, HCV1, MADYSON, GEOVANNA, GGT, PTH #### [address] [address] #### [id number], VIDH, 713068, GFR, MG, JESSICA, CMP, LIP, TSH, ADIFF, CRP, PHOS, CBC, ANEU #### [address] [address] Total Protein 7.6 G/dL Normal 6.4-8.2 [facility] ([place]) Comment on above: Performed By: #### D PETRONAAS, INSLN, CPEP, ANKUR, HCV1, MADYSON, GEOVANNA, GGT, PTH #### [place] [address] #### [id number], VIDH, 137831, GFR, MG, JESSICA, CMP, LIP, TSH, ADIFF, CRP, PHOS, CBC, ANEU #### [address] [address] Urea nitrogen [Mass/Vol] 19 mg/dL High 7-18 [facility] ([place]) Comment on above: Performed By: #### Amy RUSSAS, INSLN, CPEP, ANKUR, HCV1, MADYSON, GEOVANNA, GGT, PTH #### [place] [address] #### [id number], VIDH, 514596, GFR, MG, JESSICA, CMP, LIP, TSH, ADIFF, CRP, PHOS, CBC, ANEU #### [address] [address] CORTon 08-24-2023 Cortisol Level 32.1 mcg/dL Normal [facility] ([place]) Comment on above: Result Comment: Ankur isol AM Reference Range 6.5-26.0 mcg/dL Cortisol PM Reference Range 3.5-15.0 mcg/dL Performed By: #### D HEAS, INSLN, CPEP, ANKUR, HCV1, MADYSON, GEOVANNA, GGT, PTH #### [place] [address] #### [id number], VIDH, 219947, GFR, MG, JESSICA, CMP, LIP, TSH, ADIFF, CRP, PHOS, CBC, ANEU #### [address] [address] CPEPon 08-24-2023 C-Peptide 1.93 ng/mL Normal 0.81-3.85 [facility] ([place]) Comment on above: Performed By: #### D HEAS, INSLN, CPEP, ANKUR, HCV1, MADYSON, GEOVANNA, GGT, PTH #### [place] [address] #### [id number], VIDH, 253346, GFR, MG, JESSICA, CMP, LIP, TSH, ADIFF, CRP, PHOS, CBC, ANEU #### [place] [id number] CRPon 08-24-2023 C-Reactive Protein 0.9 mg/dL High 0.0-0.3 [facility] ([place]) Comment on above: Performed By: #### D PETRONAAS, INSLN, CPEP, ANKUR, HCV1, MADYSON, GEOVANNA, GGT, PTH #### [place] [address] #### [id number], VIDH, 645436, GFR, MG, JESSICA, CMP, LIP, TSH, ADIFF, CRP, PHOS, CBC, ANEU #### [address] [address] DHEASon 08-24-2023 DHEA-SO4 207.62 mcg/dL Normal 25.90-460.20 [facility] ([place]) Comment on above: Result Comment: No te - New Reference Range in effect 20 Performed By: #### D HEAS, INSLN, CPEP, ANKUR, HCV1, MADYSON, GEOVANNA, GGT, PTH #### [place] [address] #### [id number], VIDH, 396818, GFR, MG, JESSICA, CMP, LIP, TSH, ADIFF, CRP, PHOS, CBC, ANEU #### [address] [address] GGTon 08-24-2023 Gamma GT 21 U/L Normal 5-55 [facility] ([place]) Comment on above: Performed By: #### D HEAS, INSLN, CPEP, ANKUR, HCV1, MADYSON, GEOVANNA, GGT, PTH #### [place] [address] #### [id number], VIDH, 257638, GFR, MG, JESSICA, CMP, LIP, TSH, ADIFF, CRP, PHOS, CBC, ANEU #### [place] [id number] HCVon 08-24-2023 Hep C Ab Non-Reactive Normal Non-Reactive [facility] ([place]) Comment on above: Performed By: #### D HEAS, INSLN, CPEP, ANKUR, HCV1, MADYSON, GEOVANNA, GGT, PTH #### [place] [address] #### [id number], VIDH, 790565, GFR, MG, JESSICA, CMP, LIP, TSH, ADIFF, CRP, PHOS, CBC, ANEU #### [address] [address] Hep C Ab Int Normal [facility] ([place]) Comment on above: Result Comment: Nonr eactive: [...] ANKUR, HCV1, MADYSON, GEOVANNA, GGT, PTH #### [place] [address] #### [id number], VIDH, 679733, GFR, MG, JESSICA, CMP, LIP, TSH, ADIFF, CRP, PHOS, CBC, ANEU #### [place] [id number] INSLNon 08-24-2023 Insulin 4.00 munit/L Normal 2.60-37.60 [facility] ([place]) Comment on above: Performed By: #### D HEAS, INSLN, CPEP, ANKUR, HCV1, MADYSON, GEOVANNA, GGT, PTH #### [facility] [address] [place] [address] #### [id number], VIDH, 246225, GFR, MG, JESSICA, CMP, LIP, TSH, ADIFF, CRP, PHOS, CBC, ANEU #### [place] [address] [place], [place] [address] LABORATORYOrdered By: SYSTEM SYSTEM on 08-24-2023 25-hydroxyvitamin [...] 1.93 ng/mL Normal 0.81 - 3.85 ng/mL ADM SS Calcium [Mass/Vol] 9.3 mg/dL Normal [...] 21 U/L Normal 5 - 55 U/L ADM SS GFR/1.73 sq M.predicted among blacks [...] 08-24-2023 Lipase Level 84 U/L High 16-77 [facility] ([place]) Comment on above: Performed By: #### D HEAS, INSLN, CPEP, ANKUR, HCV1, MADYSON, GEOVANNA, GGT, PTH #### [place] [address] #### [id number], VIDH, 366692, GFR, MG, JESSICA, CMP, LIP, TSH, ADIFF, CRP, PHOS, CBC, ANEU #### [address] [address] MGon 08-24-2023 Magnesium [Mass/Vol] 1.5 mg/dL Low 1.8-2.4 [facility] ([place]) Comment on above: Performed By: #### D HEAS, INSLN, CPEP, ANKUR, HCV1, MADYSON, GEOVANNA, GGT, PTH #### [place] [address] #### [id number], VIDH, 597960, GFR, MG, JESSICA, CMP, LIP, TSH, ADIFF, CRP, PHOS, CBC, ANEU #### [address] [address] PHOSon 08-24-2023 Phosphate [Mass/Vol] 3.2 mg/dL Normal 2.3-4.1 [facility] ([place]) Comment on above: Performed By: #### D HEAS, INSLN, CPEP, ANKUR, HCV1, MADYSON, GEOVANNA, GGT, PTH #### [place] [address] #### [id number], VIDH, 389653, GFR, MG, JESSICA, CMP, LIP, TSH, ADIFF, CRP, PHOS, CBC, ANEU #### [address] [address] PTHon 08-24-2023 PTH, Intact 13.5 pg/mL Low 18.5-88.0 [facility] ([place]) Comment on above: Performed By: #### D PETRONAAS, INSLN, CPEP, ANKUR, HCV1, MADYSON, GEOVANNA, GGT, PTH #### [place] [address] #### [id number], VIDH, 433443, GFR, MG, JESSICA, CMP, LIP, TSH, ADIFF, CRP, PHOS, CBC, ANEU #### [place] [id number] TSHon 08-24-2023 TSH Qn 0.68 m[IU]/L Normal 0.36-3.74 [facility] ([place]) Comment on above: Performed By: #### D COLBY, INSLN, CPEP, ANKUR, HCV1, MADYSON, GEOVANNA, GGT, PTH #### [place] [address] #### [id number], VIDH, 240539, GFR, MG, JESSICA, CMP, LIP, TSH, ADIFF, CRP, PHOS, CBC, ANEU #### [place] [id number] VIDHon 08-24-2023 Vit. D 25-Hydroxy 47.7 ng/mL Normal [facility] ([place]) Comment on above: Result Comment: Inte rpretive Values Based on Total 25(OH) Vitamin D: Deficient <20 ng/mL Insufficient 20 - <30 ng/mL Sufficient 30-100 ng/mL Performed By: #### D PETRONAAS, INSLN, CPEP, ANKUR, HCV1, MADYSON, GEOVANNA, GGT, PTH #### [place] [address] #### 514471, VIDH, 292646, GFR, MG, JESSICA, CMP, LIP, TSH, ADIFF, CRP, PHOS, CBC, ANEU #### [address] [address] Absolute lymphocyte countOrd ered By: Fabrizio Sanz on 08-21-2023 Lymphocytes Auto (Unsp spec) [#/Vol] 2.73 10*3/uL 0.83-4.51 [facility] Automated lymphocyte count a s percentage of total leukocytesOrdered By: Fabrizio Sanz on 08-21-2023 Lymphocytes/100 WBC Auto (Unsp spec) 19.1 % 19-41 [facility] Basophil percentageOrdered B y: Fabrizio Sanz on 08-21-2023 Basophil percentage 0-5 SEEN /hpf 0-5 [facility] Basophils/100 WBC (Bld) 0.4 % 0-1 [facility] Chloride [Moles/Vol] 101 mmol/L 98-107 [facility] Eosinophils/100 WBC (Bld) 0.0 % 0-5 [facility] Glucose [Mass/Vol] 436 mg/dL 74-106 [facility] Comment on above: Glucose result great er than or equal to 200 mg/dLsuggests DIABETES MELLITUS per A.D.A. criteria. Hemoglobin (Bld) [Mass/Vol] 12.2 g/dL 12.0-15.0 [facility] Monocytes/100 WBC (Bld) 4.4 % 0-10 [facility] Neutrophils (Bld) [#/Vol] 10.8 10*3/uL 2.0-7.7 [facility] Neutrophils/100 WBC (Bld) 75.7 % 47-70 [facility] Potassium [Moles/Vol] 4.7 mmol/L 3.5-5.1 [facility] Comment on above: Moderate Hemolysis, Result may be falsely increased. Sodium [Moles/Vol] 131 mmol/L 136-145 [facility] WBC (Bld) [#/Vol] 14.3 10*3/uL 4.4-11.0 [facility] Bilirubin Test strip Ql (U)O rdered By: Fabrizio Sanz on 08-21-2023 Bilirubin Ql (U) Negative Negative [facility] Determination of erythrocyte mean corpuscular volume (MCV)Ordered By: Fabrizio Sanz on 08-21-2023 MCV (RBC) [Entitic vol] 90.3 fL 81-99 [facility] Erythrocyte distribution wid th ratioOrdered By: Fabrizio Sanz on 08-21-2023 Erythrocyte distribution width (RBC) [Ratio] 13.5 % 11.6-14.6 [facility] Erythrocyte distribution wid th standard deviationOrdered By: Fabrizio Sanz on 08-21-2023 Erythrocyte distribution width (RBC) [Entitic vol] 44.5 fL 35.1-43.9 [facility] Hematocrit Auto (Bld) [Volum e fraction]Ordered By: Fabrizio Sanz on 08-21-2023 Hematocrit (Bld) [Volume fraction] 36.2 % 37-47 [facility] Immature granulocytes/100 WB C Auto (Bld)Ordered By: Fabrizio Sanz on 08-21-2023 Immature granulocytes/100 WBC (Bld) 0.400 % 0.0-0.9 [facility] Comment on above: IG% - Immature Granu locytes (promyelocytes, myelocytes and metamyelocytes) > 1% indicates that a LEFT SHIFT is Present. Ketones Test strip Ql (U)Ord ered By: Fabrizio Sanz on 08-21-2023 Ketones Ql (U) Negative Negative [facility] Laboratory - Chemistry and C hemistry - challengeOrdered By: Fabrizio Sanz on 08-21-2023 CO2 [Moles/Vol] 25.0 mmol/L 21.0-32.0 [facility] Urea nitrogen/Creatinine [Mass ratio] 27.4 mg/mg 10-20 [facility] Laboratory - Hematology and Cell countsOrdered By: Fabrizio Sanz on 08-21-2023 MCH (RBC) [Entitic mass] 30.4 pg 27.0-32.0 [facility] MCHC (RBC) [Mass/Vol] 33.7 g/dL 32-36 [facility] Nucleated RBC/100 WBC (Bld) [Ratio] 0 % 0-5 [facility] Platelet mean volume (Bld) [Entitic vol] 9.0 fL 6.2-12.0 [facility] Platelets (Bld) [#/Vol] 441 10*3/uL 150-450 [facility] Mucus LM Ql (Urine sed)Order ed By: Fabrizio Sanz on 08-21-2023 Mucus Ql (Urine sed) 0 SEEN /hpf [facility] Nitrite Test strip Ql (U)Ord ered By: Fabrizio Sanz on 08-21-2023 Nitrite Ql (U) Negative Negative [facility] No Panel InformationOrdered By: Fabrizio Sanz on 08-21-2023 Urine RBC 10-25 SEEN /hpf 0-5 [facility] Estimated Creatinine Clearance Calc 33.36 ml/min [facility] Estimated GFR (MDRD) Amer 71 mL/min >60 [facility] Comment on above: GFR Calc Estimated GFR (MDRD) Non-Af Amer 58 mL/min >60 [facility] Comment on above: Non- GFR Calc Protein Test strip Ql (U)Ord ered By: Fabrizio Sanz on 08-21-2023 Protein Ql (U) 30 mg/dl Negative [facility] RBC Auto (Bld) [#/Vol]Ordere d By: Fabrizio Sanz on 08-21-2023 RBC (Bld) [#/Vol] 4.01 10*6/uL 4.2-5.4 [facility] Serum or plasma calcium delvis urement (mass/volume)Ordered By: Fabrizio Sanz on 08-21-2023 Calcium [Mass/Vol] 9.0 mg/dL 8.5-10.1 [facility] Serum or plasma creatinine m easurement (mass/volume)Ordered By: Fabrizio Sanz on 08-21-2023 Creatinine [Mass/Vol] 0.98 mg/dL 0.55-1.02 [facility] Comment on above: The validity of the calculated GFR & GFRAA in patients over 70 years has not been determined. Clinical correlation is essential. Serum or plasma urea nitroge n measurement (mass/volume)Ordered By: Fabrizio Sanz on 08-21-2023 Urea nitrogen [Mass/Vol] 27 mg/dL 7-18 [facility] Squamous epithelial cells de tection in urine sediment by light microscopyOrdered By: Fabrizio Sanz on 08-21-2023 Epithelial cells.squamous LM Ql (Urine sed) 0-5 SEEN /hpf 5-10 [facility] Thin prep Papanicolaou smear with manual screeningOrdered By: Fabrizio Sanz on 08-21-2023 Thin prep Papanicolaou smear with manual screening 341 mg/dL 74-106 [facility] Comment on above: MANAGEMENT OF PATIEN T CARE PER NURSING PROTOCOL Thin prep Papanicolaou smear with manual screening 5 5-15 [facility] Urine blood detectionOrdered By: Fabrizio Sanz on 08-21-2023 RBC Ql (U) 250 /ul Negative [facility] Urine clarityOrdered By: Luis Daniel Sanz on 08-21-2023 Clarity (U) Clear Clear [facility] Urine color determinationOrd ered By: Fabrizio Sanz on 08-21-2023 Color (U) Yellow Yellow [facility] Urine glucose detectionOrder ed By: Fabrizio Sanz on 08-21-2023 Glucose Ql (U) 1000 mg/dl Normal [facility] Urine leukocyte esterase det ection by dipstickOrdered By: Fabrizio Sanz on 08-21-2023 Leukocyte esterase Test strip Ql (U) 100 /ul Negative [facility] Urine pHOrdered By: Fabrizio riggins on 08-21-2023 pH (U) 7.0 [pH] 5.0 - 8.0 [facility] Urine sediment bacteria coun t by microscopy (number/high power field)Ordered By: Fabrizio Sanz on 08-21-2023 Bacteria LM.HPF (Urine sed) [#/Area] 0 /[HPF] None Seen [facility] Urine specific gravity measu rementOrdered By: Fabrizio Sanz on 08-21-2023 Specific gravity (U) [Rel density] 1.005 1.002-1.030 [facility] Urine urobilinogen measureme ntOrdered By: Fabrizio Sanz on 08-21-2023 Urobilinogen Ql (U) Normal mg/dl Normal [facility] Basophil percentageOrdered B y: Baldev Gaxiola on 08-10-2023 Chloride [Moles/Vol] 108 mmol/L 98-107 [facility] Glucose [Mass/Vol] 163 mg/dL 74-106 [facility] Comment on above: Fasting Glucose resu lt greater than or equal to 126 mg/dL suggests DIABETES MELLITUS per A.D.A. criteria. Hemoglobin (Bld) [Mass/Vol] 10.6 g/dL 12.0-15.0 [facility] Potassium [Moles/Vol] 3.6 mmol/L 3.5-5.1 [facility] Sodium [Moles/Vol] 140 mmol/L 136-145 [facility] WBC (Bld) [#/Vol] 13.6 10*3/uL 4.4-11.0 [facility] Determination of erythrocyte mean corpuscular volume (MCV)Ordered By: Baldev Gaxiola on 08-10-2023 MCV (RBC) [Entitic vol] 87.8 fL 81-99 [facility] Erythrocyte distribution wid th ratioOrdered By: Baldev Gaxiola on 08-10-2023 Erythrocyte distribution width (RBC) [Ratio] 12.9 % 11.6-14.6 [facility] Erythrocyte distribution wid th standard deviationOrdered By: Baldev Gaxiola on 08-10-2023 Erythrocyte distribution width (RBC) [Entitic vol] 41.5 fL 35.1-43.9 [facility] Hematocrit Auto (Bld) [Volum e fraction]Ordered By: Baldev Gaxiola on 08-10-2023 Hematocrit (Bld) [Volume fraction] 31.7 % 37-47 [facility] Laboratory - Chemistry and C hemistry - challengeOrdered By: Baldev Gaxiola on 08-10-2023 CO2 [Moles/Vol] 24.0 mmol/L 21.0-32.0 [facility] Urea nitrogen/Creatinine [Mass ratio] 16.3 mg/mg 10-20 [facility] Laboratory - Hematology and Cell countsOrdered By: Baldev Gaxiola on 08-10-2023 MCH (RBC) [Entitic mass] 29.4 pg 27.0-32.0 [facility] MCHC (RBC) [Mass/Vol] 33.4 g/dL 32-36 [facility] Platelet mean volume (Bld) [Entitic vol] 9.3 fL 6.2-12.0 [facility] Platelets (Bld) [#/Vol] 271 10*3/uL 150-450 [facility] No Panel InformationOrdered By: Baldev Gaxiola on 08-10-2023 Estimated Creatinine Clearance Calc 43.82 ml/min [facility] Estimated GFR (MDRD) Amer 99 mL/min >60 [facility] Comment on above: GFR Calc Estimated GFR (MDRD) Non-Af Amer 82 mL/min >60 [facility] Comment on above: Non- GFR Calc RBC Auto (Bld) [#/Vol]Ordere d By: Baldev Gaxiola on 08-10-2023 RBC (Bld) [#/Vol] 3.61 10*6/uL 4.2-5.4 [facility] Serum or plasma calcium delvis urement (mass/volume)Ordered By: Baldev Gaxiola on 08-10-2023 Calcium [Mass/Vol] 8.4 mg/dL 8.5-10.1 [facility] Serum or plasma creatinine m easurement (mass/volume)Ordered By: Baldev Gaxiola on 08-10-2023 Creatinine [Mass/Vol] 0.74 mg/dL 0.55-1.02 [facility] Comment on above: The validity of the calculated GFR & GFRAA in patients over 70 years has not been determined. Clinical correlation is essential. Serum or plasma urea nitroge n measurement (mass/volume)Ordered By: Baldev Gaxiola on 08-10-2023 Urea nitrogen [Mass/Vol] 12 mg/dL 7-18 [facility] Thin prep Papanicolaou smear with manual screeningOrdered By: Hesham Solomon on 08-10-2023 Thin prep Papanicolaou smear with manual screening 333 mg/dL 74-106 [facility] Comment on above: MANAGEMENT OF PATIEN T CARE PER NURSING PROTOCOL Thin prep Papanicolaou smear with manual screeningOrdered By: Baldev Gaxiola on 08-10-2023 Thin prep Papanicolaou smear with manual screening 8 5-15 [facility] Whole blood hemoglobin A1c/t otal hemoglobin ratio (mass fraction)Ordered By: Baldev Gaxiola on 08-07-2023 HbA1c (Bld) [Mass fraction] 12.4 % 3.8-5.6 [facility] Comment on above: Normal < 5.7 % Predi abetic 5.7 - 6.4 % Diabetic >or= 6.5 % Please note range changes. Absolute lymphocyte countOrd ered By: Art Alcaraz on 08-06-2023 Lymphocytes Auto (Unsp spec) [#/Vol] 2.07 10*3/uL 0.83-4.51 [facility] Automated lymphocyte count a s percentage of total leukocytesOrdered By: Art Alcaraz on 08-06-2023 Lymphocytes/100 WBC Auto (Unsp spec) 9.0 % 19-41 [facility] Basophil percentageOrdered B y: Art Alcaraz on 08-06-2023 Basophils/100 WBC (Bld) 0.3 % 0-1 [facility] Eosinophils/100 WBC (Bld) 0.0 % 0-5 [facility] Monocytes/100 WBC (Bld) 4.1 % 0-10 [facility] Neutrophils (Bld) [#/Vol] 19.7 10*3/uL 2.0-7.7 [facility] Neutrophils/100 WBC (Bld) 85.7 % 47-70 [facility] Immature granulocytes/100 WB C Auto (Bld)Ordered By: Art Alcaraz on 08-06-2023 Immature granulocytes/100 WBC (Bld) 0.900 % 0.0-0.9 [facility] Comment on above: IG% - Immature Granu locytes (promyelocytes, myelocytes and metamyelocytes) > 1% indicates that a LEFT SHIFT is Present. Laboratory - Hematology and Cell countsOrdered By: Art Alcaraz on 08-06-2023 Nucleated RBC/100 WBC (Bld) [Ratio] 0 % 0-5 [facility] No Panel InformationOrdered By: Art Alcaraz on 08-06-2023 Troponin I High Sensitivity 835 pg/mL 3.0-54.0 [facility] Comment on above: Critical Result(s) C alled at: 10:09:25 08/06/2023 by: Georgiana Reece to Matias. Results read back by same. Please Note: New Test Units and Gender Specific Reference Ranges. For more information see Policy Stat Procedure [place] High Sensitivity Troponin (TNIH) and attachments. Base excessOrdered By: Kriss Gu on 08-05-2023 Base excess Calc (BldV) [Moles/Vol] -2 mmol/L -1.0-3.5 [facility] Basophil percentageOrdered B y: Virginia Gu on 08-05-2023 Basophil percentage 0 SEEN /hpf 0-5 [facility] Bilirubin [Mass/Vol] 0.60 mg/dL 0.20-1.00 [facility] Comment on above: For patients on eltr ombopag therapy, use of Dimension [place] TBIL is not recommended. Protein [Mass/Vol] 8.2 g/dL 6.4-8.2 [facility] Basophil percentageOrdered B y: Art Alcaraz on 08-05-2023 Basophil percentage 2.6 mg/dL 2.5-4.9 [facility] Bilirubin Test strip Ql (U)O rdered By: Virginia Gu on 08-05-2023 Bilirubin Ql (U) Negative Negative [facility] CO2 (BldV) [Moles/Vol]Ordere d By: Virginia Gu on 08-05-2023 CO2 [Moles/Vol] 24 mmol/L 23-33 [facility] Culture, urineOrdered By: Mario Gu on 08-05-2023 Bacteria identified Cx Nom (U) Escherichia coli [facility] Direct bilirubinOrdered By: Virginia Gu on 08-05-2023 Bilirubin.direct [Mass/Vol] 0.23 mg/dL 0.00-0.30 [facility] Ketones Test strip Ql (U)Ord ered By: Virginia Gu on 08-05-2023 Ketones Ql (U) 5 mg/dl Negative [facility] Laboratory - Chemistry and C hemistry - challengeOrdered By: Virginia Gu on 08-05-2023 HCO3 (Bld) [Moles/Vol] 23 mmol/L 22-26 [facility] ALP [Catalytic activity/Vol] 105 U/L 45-117 [facility] ALT [Catalytic activity/Vol] 23 U/L 13-56 [facility] Globulin (S) [Mass/Vol] 5.0 g/dL 2.2-4.2 [facility] Laboratory - Chemistry and C hemistry - challengeOrdered By: Art Alcaraz on 08-05-2023 Magnesium [Mass/Vol] 1.8 mg/dL 1.6-2.6 [facility] Laboratory - Microbiology an d Antimicrobial susceptibilityOrdered By: Virginia Gu on 08-05-2023 SARS-CoV-2 (COVID-19) RNA DONAVAN+probe Ql (Unsp spec) [facility] Bacteria identified Cx Nom (Bld) Escherichia coli [facility] Bacteria identified Cx Nom (Bld) GNR lactose gore stitcher [facility] Mucus LM Ql (Urine sed)Order ed By: Virginia Gu on 08-05-2023 Mucus Ql (Urine sed) 0 SEEN /hpf [facility] Nitrite Test strip Ql (U)Ord ered By: Virginia Gu on 08-05-2023 Nitrite Ql (U) Positive Negative [facility] No Panel InformationOrdered By: Virginia Gu on 08-05-2023 Urine RBC 0-5 SEEN /hpf 0-5 [facility] Blood Gas Oxygen Percent 2.0 [facility] Blood Gas Sample Site Not entered [facility] Blood Gas Specimen Type DEDRICK [facility] Oxygen Delivery Device Cannula [facility] PCO2 venousOrdered By: Kriss Gu on 08-05-2023 CO2 (BldV) [Partial pressure] 38.1 mm[Hg] 41-51 [facility] PO2 venousOrdered By: Daxa Gu on 08-05-2023 Oxygen (BldV) [Partial pressure] 56 mm[Hg] 25-40 [facility] Protein Test strip Ql (U)Ord ered By: Virginia Gu on 08-05-2023 Protein Ql (U) 30 mg/dl Negative [facility] Serum or plasma acetone delvis urement (mass/volume)Ordered By: Virginia Gu on 08-05-2023 Acetone [Mass/Vol] MODERATE NEG [facility] Squamous epithelial cells de tection in urine sediment by light microscopyOrdered By: Virginia Gu on 08-05-2023 Epithelial cells.squamous LM Ql (Urine sed) 0 SEEN /hpf 5-10 [facility] Thin prep Papanicolaou smear with manual screeningOrdered By: Virginia Gu on 08-05-2023 Thin prep Papanicolaou smear with manual screening 3.2 g/dL 3.2-5.0 [facility] Thin prep Papanicolaou smear with manual screening 11 U/L 15-37 [facility] [facility] Urine blood detectionOrdered By: Virginia Gu on 08-05-2023 RBC Ql (U) 150 /ul Negative [facility] Urine clarityOrdered By: Ida Gu on 08-05-2023 Clarity (U) Clear Clear [facility] Urine color determinationOrd ered By: Virginia Gu on 08-05-2023 Color (U) Yellow Yellow [facility] Urine glucose detectionOrder ed By: Virginia Gu on 08-05-2023 Glucose Ql (U) 1000 mg/dl Normal [facility] Urine leukocyte esterase det ection by dipstickOrdered By: Virginia Gu on 08-05-2023 Leukocyte esterase Test strip Ql (U) 25 /ul Negative [facility] Urine pHOrdered By: Virginia Gu on 08-05-2023 pH (U) 6.5 [pH] 5.0 - 8.0 [facility] Urine sediment bacteria coun t by microscopy (number/high power field)Ordered By: Virginia Gu on 08-05-2023 Bacteria LM.HPF (Urine sed) [#/Area] 1 /[HPF] None Seen [facility] Urine specific gravity measu rementOrdered By: Virginia Gu on 08-05-2023 Specific gravity (U) [Rel density] 1.010 1.002-1.030 [facility] Urine urobilinogen measureme ntOrdered By: Virginia Gu on 08-05-2023 Urobilinogen Ql (U) Normal mg/dl Normal [facility] Venous blood pH measurementO rdered By: Virginia Gu on 08-05-2023 pH (BldV) 7.39 [pH] 7.32-7.42 [facility] Vital signsOrdered By: Kriss Gu on 08-05-2023 Oxygen saturation in Blood 88 % 50-70 [facility] .Auto Diffon 05-05-2023 Basophil, Absolute 0.1 10 3/mcL Normal 0.0-0.2 [facility] ([place]) Comment on above: Performed By: #### D HEAS, INSLN, CPEP, ANKUR, HCV1, MADYSON, GEOVANNA, GGT, PTH #### [address] [address] #### [id number], VIDH, 238163, GFR, MG, JESSICA, CMP, LIP, TSH, ADIFF, CRP, PHOS, CBC, ANEU #### [address] [place] [place], [place] [address] Basophils/100 WBC (Bld) 0.8 % Normal 0.0-2.5 A [facility] ([place]) Comment on above: Performed By: #### D HEAS, INSLN, CPEP, ANKUR, HCV1, MADYSON, GEOVANNA, GGT, PTH #### [place] [address] #### [id number], VIDH, 909455, GFR, MG, JESSICA, CMP, LIP, TSH, ADIFF, CRP, PHOS, CBC, ANEU #### [address] [address] Eosinophil, Absolute 0.0 10 3/mcL Normal 0.0-0.4 [facility] ([place]) Comment on above: Performed By: #### D HEAS, INSLN, CPEP, ANKUR, HCV1, MADYSON, GEOVANNA, GGT, PTH #### [place] [address] #### [id number], VIDH, 686300, GFR, MG, JESSICA, CMP, LIP, TSH, ADIFF, CRP, PHOS, CBC, ANEU #### [address] [address] Eosinophils/100 WBC (Bld) 0.1 % Normal 0.0-7.0 [facility] ([place]) Comment on above: Performed By: #### Amy RUSSAS, INSLN, CPEP, ANKUR, HCV1, MADYSON, GEOVANNA, GGT, PTH #### [place] [address] #### [id number], VIDH, 140314, GFR, MG, JESSICA, CMP, LIP, TSH, ADIFF, CRP, PHOS, CBC, ANEU #### [address] [address] Lymphocyte, Absolute 3.7 10 3/mcL Normal 0.8-3.9 [facility] ([place]) Comment on above: Performed By: #### Amy HEAS, INSLN, CPEP, ANKUR, HCV1, MADYSON, GEOVANNA, GGT, PTH #### [place] [address] #### [id number], VIDH, 447985, GFR, MG, JESSICA, CMP, LIP, TSH, ADIFF, CRP, PHOS, CBC, ANEU #### [address] [address] Lymphocytes/100 WBC (Bld) 28.0 % Normal 10.0-50.0 [facility] ([place]) Comment on above: Performed By: #### D HEAS, INSLN, CPEP, ANKUR, HCV1, MADYSON, GEOVANNA, GGT, PTH #### [place] [address] #### [id number], VIDH, 284875, GFR, MG, JESSICA, CMP, LIP, TSH, ADIFF, CRP, PHOS, CBC, ANEU #### [address] [address] Monocyte, Absolute 0.6 10 3/mcL Normal 0.2-1.0 [facility] ([place]) Comment on above: Performed By: #### D PETRONAAS, INSLN, CPEP, ANKUR, HCV1, MADYSON, GEOVANNA, GGT, PTH #### [place] [address] #### [id number], VIDH, 478341, GFR, MG, JESSICA, CMP, LIP, TSH, ADIFF, CRP, PHOS, CBC, ANEU #### [address] [address] Monocytes/100 WBC (Bld) 4.8 % Normal 1.7-13.0 A [facility] ([place]) Comment on above: Performed By: #### D PETRONAAS, INSLN, CPEP, ANKUR, HCV1, MADYSON, GEOVANNA, GGT, PTH #### [place] [address] #### [id number], VIDH, 661543, GFR, MG, JESSICA, CMP, LIP, TSH, ADIFF, CRP, PHOS, CBC, ANEU #### [address] [address] Neutrophils/100 WBC (Bld) 66.3 % Normal 37.0-80.0 [facility] ([place]) Comment on above: Performed By: #### D HEAS, INSLN, CPEP, ANKUR, HCV1, MADYSON, GEOVANNA, GGT, PTH #### [place] [address] #### 162438, VIDH, 240125, GFR, MG, JESSICA, CMP, LIP, TSH, ADIFF, CRP, PHOS, CBC, ANEU #### [address] [address] .GFRon 05-05-2023 GFR 55 ml/min/1.73sqm Normal [facility] ([place]) Comment on above: Result Comment: GFR Population [...] ANKUR, HCV1, MADYSON, GEOVANNA, GGT, PTH #### [place] [address] #### 278584, VIDH, 806904, GFR, MG, JESSICA, CMP, LIP, TSH, ADIFF, CRP, PHOS, CBC, ANEU #### [address] [address] GFR Non- 45 ml/min/1.73sqm Normal [facility] ([place]) Comment on above: Result Comment: GFR Population [...] ANKUR, HCV1, MADYSON, GEOVANNA, GGT, PTH #### [place] [address] #### [id number], VIDH, 019799, GFR, MG, JESSICA, CMP, LIP, TSH, ADIFF, CRP, PHOS, CBC, ANEU #### [address] [address] .NEUABSon 05-05-2023 Neutrophil, Absolute 8.8 10 3/mcL High 2.9-6.2 [facility] ([place]) Comment on above: Performed By: #### Amy BOWMAN, INSLN, CPEP, ANKUR, HCV1, MADYSON, GEOVANNA, GGT, PTH #### [place] [address] #### 804949, VIDH, 231109, GFR, MG, JESSICA, CMP, LIP, TSH, ADIFF, CRP, PHOS, CBC, ANEU #### [address] [address] A1Con 05-05-2023 HbA1c (Bld) [Mass fraction] 7.6 % High 4.3-6.4 [facility] ([place]) Comment on above: Performed By: #### Amy BOWMAN, INSLN, CPEP, ANKUR, HCV1, MADYSON, GEOVANNA, GGT, PTH #### [place] [address] #### 256450, VIDH, 360409, GFR, MG, JESSICA, CMP, LIP, TSH, ADIFF, CRP, PHOS, CBC, ANEU #### [address] [address] CBCon 05-05-2023 Erythrocyte distribution width (RBC) [Ratio] 13.4 % Normal 11.5-14.5 [facility] ([place]) Comment on above: Performed By: #### Amy HEAS, INSLN, CPEP, ANKUR, HCV1, MADYSON, GEOVANNA, GGT, PTH #### [place] [address] #### 797986, VIDH, 097619, GFR, MG, JESSICA, CMP, LIP, TSH, ADIFF, CRP, PHOS, CBC, ANEU #### [address] [address] Hematocrit (Bld) [Volume fraction] 47.7 % High 37.0-47.0 [facility] ([place]) Comment on above: Performed By: #### D HEAS, INSLN, CPEP, ANKUR, HCV1, MADYSON, GEOVANNA, GGT, PTH #### [place] [address] #### 217438, VIDH, 619667, GFR, MG, JESSICA, CMP, LIP, TSH, ADIFF, CRP, PHOS, CBC, ANEU #### [place] [id number] Hgb 16.0 G/dL Normal 12.0-16.0 [facility] ([place]) Comment on above: Performed By: #### D PETRONAAS, INSLN, CPEP, ANKUR, HCV1, MADYSON, GEOVANNA, GGT, PTH #### [place] [address] #### 897404, VIDH, 257768, GFR, MG, JESSICA, CMP, LIP, TSH, ADIFF, CRP, PHOS, CBC, ANEU #### [address] [address] MCH (RBC) [Entitic mass] 30.8 pg Normal 27.0-31.2 [facility] ([place]) Comment on above: Performed By: #### D HEAS, INSLN, CPEP, ANKUR, HCV1, MADYSON, GEOVANNA, GGT, PTH #### [place] [address] #### 816841, VIDH, 414578, GFR, MG, JESSICA, CMP, LIP, TSH, ADIFF, CRP, PHOS, CBC, ANEU #### [address] [address] MCHC 33.5 G/dL Normal 33.0-37.0 [facility] ([place]) Comment on above: Performed By: #### D HEAS, INSLN, CPEP, ANKUR, HCV1, MADYSON, GEOVANNA, GGT, PTH #### [place] [address] #### [id number], VIDH, 636103, GFR, MG, JESSICA, CMP, LIP, TSH, ADIFF, CRP, PHOS, CBC, ANEU #### [address] [address] MCV (RBC) [Entitic vol] 91.8 fL Normal 80.0-94.0 A [facility] ([place]) Comment on above: Performed By: #### D HEAS, INSLN, CPEP, ANKUR, HCV1, MADYSON, GEOVANNA, GGT, PTH #### [place] [address] #### [id number], VIDH, 771856, GFR, MG, JESSICA, CMP, LIP, TSH, ADIFF, CRP, PHOS, CBC, ANEU #### [address] [address] Platelet 275 10 3/mcL Normal 130-400 [facility] ([place]) Comment on above: Performed By: #### D HEAS, INSLN, CPEP, ANKUR, HCV1, MADYSON, GEOVANNA, GGT, PTH #### [place] [address] #### 166862, VIDH, 452094, GFR, MG, JESSICA, CMP, LIP, TSH, ADIFF, CRP, PHOS, CBC, ANEU #### [address] [address] Platelet mean volume (Bld) [Entitic vol] 8.2 fL Normal 7.4-10.4 [facility] ([place]) Comment on above: Performed By: #### D HEAS, INSLN, CPEP, ANKUR, HCV1, MADYSON, GEOVANNA, GGT, PTH #### [place] [address] #### 330555, VIDH, 397569, GFR, MG, JESSICA, CMP, LIP, TSH, ADIFF, CRP, PHOS, CBC, ANEU #### [address] [address] RBC 5.19 10 6/mcL Normal 4.20-5.40 [facility] ([place]) Comment on above: Performed By: #### Amy RUSSAS, INSLN, CPEP, ANKUR, HCV1, MADYSON, GEOVANNA, GGT, PTH #### [place] [address] #### 569515, VIDH, 417693, GFR, MG, JESSICA, CMP, LIP, TSH, ADIFF, CRP, PHOS, CBC, ANEU #### [address] [address] WBC 13.2 10 3/mcL High 4.6-10.8 [facility] ([place]) Comment on above: Performed By: #### Amy RUSSAS, INSLN, CPEP, ANKUR, HCV1, MADYSON, GEOVANNA, GGT, PTH #### [place] [address] #### 607146, VIDH, 822355, GFR, MG, JESSICA, CMP, LIP, TSH, ADIFF, CRP, PHOS, CBC, ANEU #### [address] [address] [facility] Albumin Level 4.2 G/dL Normal 3.4-4.8 [facility] ([place]) Comment on above: Performed By: #### Amy RUSSAS, INSLN, CPEP, ANKUR, HCV1, MADYSON, GEOVANNA, GGT, PTH #### [place] [address] #### 761752, VIDH, 847194, GFR, MG, JESSICA, CMP, LIP, TSH, ADIFF, CRP, PHOS, CBC, ANEU #### [address] [address] Albumin/Globulin [Mass ratio] 1.0 {ratio} Low 1.1-2.5 [facility] ([place]) Comment on above: Performed By: #### Amy RUSSAS, INSLN, CPEP, ANKUR, HCV1, MADYSON, GEOVANNA, GGT, PTH #### [place] [address] #### 042823, VIDH, 142550, GFR, MG, JESSICA, CMP, LIP, TSH, ADIFF, CRP, PHOS, CBC, ANEU #### [address] [address] ALP [Catalytic activity/Vol] 67 U/L Normal 40-135 [facility] ([place]) Comment on above: Performed By: #### D HEAS, INSLN, CPEP, ANKUR, HCV1, MADYSON, GEOVANNA, GGT, PTH #### [place] [address] #### 685744, VIDH, 924510, GFR, MG, JESSICA, CMP, LIP, TSH, ADIFF, CRP, PHOS, CBC, ANEU #### [address] [address] ALT [Catalytic activity/Vol] 18 U/L Normal 14-59 [facility] ([place]) Comment on above: Performed By: #### D HEAS, INSLN, CPEP, ANKUR, HCV1, MADYSON, GEOVANNA, GGT, PTH #### [place] [address] #### 134482, VIDH, 602626, GFR, MG, JESSICA, CMP, LIP, TSH, ADIFF, CRP, PHOS, CBC, ANEU #### [address] [address] AST [Catalytic activity/Vol] 11 U/L Normal 10-40 [facility] ([place]) Comment on above: Performed By: #### D HEAS, INSLN, CPEP, ANKUR, HCV1, MADYSON, GEOVANNA, GGT, PTH #### [place] [address] #### 610130, VIDH, 618853, GFR, MG, JESSICA, CMP, LIP, TSH, ADIFF, CRP, PHOS, CBC, ANEU #### [address] [address] Bili Total 0.5 mg/dL Normal 0.2-1.0 [facility] ([place]) Comment on above: Result Comment: Use of this assay is not recommended for patients undergoing treatment with eltrombopag due to the potential for falsely elevated results. Performed By: #### D HEAS, INSLN, CPEP, ANKUR, HCV1, MADYSON, GEOVANNA, GGT, PTH #### [place] [address] #### 941272, VIDH, 239090, GFR, MG, JESSICA, CMP, LIP, TSH, ADIFF, CRP, PHOS, CBC, ANEU #### [address] [address] BUN/Creatinine Ratio 15 ratio Normal 7-27 [facility] ([place]) Comment on above: Performed By: #### D HEAS, INSLN, CPEP, ANKUR, HCV1, MADYSON, GEOVANNA, GGT, PTH #### [place] [address] #### 282062, VIDH, 680443, GFR, MG, JESSICA, CMP, LIP, TSH, ADIFF, CRP, PHOS, CBC, ANEU #### [address] [address] Calcium [Mass/Vol] 9.5 mg/dL Normal 8.4-10.2 [facility] ([place]) Comment on above: Performed By: #### D HEAS, INSLN, CPEP, ANKUR, HCV1, MADYSON, GEOVANNA, GGT, PTH #### [place] [address] #### 355940, VIDH, 681469, GFR, MG, JESSICA, CMP, LIP, TSH, ADIFF, CRP, PHOS, CBC, ANEU #### [address] [address] Chloride [Moles/Vol] 101 mmol/L Normal 98-107 [facility] ([place]) Comment on above: Performed By: #### D HEAS, INSLN, CPEP, ANKUR, HCV1, MADYSON, GEOVANNA, GGT, PTH #### [place] [address] #### 632456, VIDH, 494822, GFR, MG, JESSICA, CMP, LIP, TSH, ADIFF, CRP, PHOS, CBC, ANEU #### [address] [place] [address] CO2 [Moles/Vol] 27 mmol/L Normal 23-31 [facility] ([place]) Comment on above: Performed By: #### Amy RUSSAS, INSLN, CPEP, ANKUR, HCV1, MADYSON, GEOVANNA, GGT, PTH #### [place] [address] #### 669762, VIDH, 844811, GFR, MG, JESSICA, CMP, LIP, TSH, ADIFF, CRP, PHOS, CBC, ANEU #### [address] [address] Creatinine [Mass/Vol] 1.17 mg/dL High 0.55-1.02 [facility] ([place]) Comment on above: Performed By: #### Amy BOWMAN, INSLN, CPEP, ANKUR, HCV1, MADYSON, GEOVANNA, GGT, PTH #### [place] [address] #### 319729, VIDH, 143629, GFR, MG, JESSICA, CMP, LIP, TSH, ADIFF, CRP, PHOS, CBC, ANEU #### [address] [address] Electrolyte Balance 11.0 mEq/L Normal 4.0-15.0 [facility] ([place]) Comment on above: Performed By: #### Amy BOWMAN, INSLN, CPEP, ANKUR, HCV1, MADYSON, GEOVANNA, GGT, PTH #### [place] [address] #### 424644, VIDH, 023032, GFR, MG, JESSICA, CMP, LIP, TSH, ADIFF, CRP, PHOS, CBC, ANEU #### [address] [address] Globulin 4.0 G/dL Normal [facility] ([place]) Comment on above: Performed By: #### Amy HEAS, INSLN, CPEP, ANKUR, HCV1, MADYSON, GEOVANNA, GGT, PTH #### [place] [address] #### [id number], VIDH, 020475, GFR, MG, JESSICA, CMP, LIP, TSH, ADIFF, CRP, PHOS, CBC, ANEU #### [address] [address] Glucose [Mass/Vol] 150 mg/dL High 83-110 [facility] ([place]) Comment on above: Performed By: #### Amy RUSSAS, INSLN, CPEP, ANKUR, HCV1, MADYSON, GEOVANNA, GGT, PTH #### [address] [address] #### 655151, VIDH, 470339, GFR, MG, JESSICA, CMP, LIP, TSH, ADIFF, CRP, PHOS, CBC, ANEU #### [address] [address] Potassium [Moles/Vol] 4.3 mmol/L Normal 3.5-5.1 [facility] ([place]) Comment on above: Performed By: #### Amy RUSSAS, INSLN, CPEP, ANKUR, HCV1, MADYSON, GEOVANNA, GGT, PTH #### [address] [address] #### 045708, VIDH, 049448, GFR, MG, JESSICA, CMP, LIP, TSH, ADIFF, CRP, PHOS, CBC, ANEU #### [address] [address] Sodium [Moles/Vol] 139 mmol/L Normal 136-145 [facility] ([place]) Comment on above: Performed By: #### Amy RUSSAS, INSLN, CPEP, ANKUR, HCV1, MADYSON, GEOVANNA, GGT, PTH #### [address] [address] #### 802006, VIDH, 872196, GFR, MG, JESSICA, CMP, LIP, TSH, ADIFF, CRP, PHOS, CBC, ANEU #### [address] [address] Total Protein 8.2 G/dL Normal 6.4-8.2 [facility] ([place]) Comment on above: Performed By: #### D HEAS, INSLN, CPEP, ANKUR, HCV1, MADYSON, GEOVANNA, GGT, PTH #### [address] [address] #### 419354, VIDH, 271513, GFR, MG, JESSICA, CMP, LIP, TSH, ADIFF, CRP, PHOS, CBC, ANEU #### [place] [place], [place] [address] Urea nitrogen [Mass/Vol] 17 mg/dL Normal 7-18 [facility] ([place]) Comment on above: Performed By: #### D HEAS, INSLN, CPEP, ANKUR, HCV1, MADYSON, GEOVANNA, GGT, PTH #### [address] [address] #### 531914, VIDH, 675498, GFR, MG, JESSICA, CMP, LIP, TSH, ADIFF, CRP, PHOS, CBC, ANEU #### [place] [place], [place] [address] LABORATORYOrdered By: SYSTEM SYSTEM on 05-05-2023 25-hydroxyvitamin [...] 05-05-2023 Cholesterol [Mass/Vol] 230 mg/dL High 0-200 [facility] ([place]) Comment on above: Result Comment: Chol esterol Reference Interval: Less than 200 Desirable 200-239 Borderline high risk 240 and above High risk Performed By: #### D HEAS, INSLN, CPEP, ANKUR, HCV1, MADYSON, GEOVANNA, GGT, PTH #### [address] [address] #### 942280, VIDH, 705322, GFR, MG, JESSICA, CMP, LIP, TSH, ADIFF, CRP, PHOS, CBC, ANEU #### [address] [address] Cholesterol in HDL [Mass/Vol] 51 mg/dL Normal 40-60 [facility] ([place]) Comment on above: Performed By: #### D HEAS, INSLN, CPEP, ANKUR, HCV1, MADYSON, GEOVANNA, GGT, PTH #### [address] [address] #### 288007, VIDH, 503058, GFR, MG, JESSICA, CMP, LIP, TSH, ADIFF, CRP, PHOS, CBC, ANEU #### [address] [address] Cholesterol in LDL [Mass/Vol] 151 mg/dL High 0-130 [facility] ([place]) Comment on above: Performed By: #### D HEAS, INSLN, CPEP, ANKUR, HCV1, MADYSON, GEOVANNA, GGT, PTH #### [address] [address] #### 219806, VIDH, 802334, GFR, MG, JESSICA, CMP, LIP, TSH, ADIFF, CRP, PHOS, CBC, ANEU #### [address] [address] Triglyceride [Mass/Vol] 141 mg/dL Normal 0-150 A [facility] ([place]) Comment on above: Result Comment: Trig lyceride Reference Interval: Less than 150 Normal 150-199 Borderline high risk 200-499 High risk 500 or higher Very high risk Performed By: #### D PETRONAAS, INSLN, CPEP, ANKUR, HCV1, MADYSON, GEOVANNA, GGT, PTH #### [place] [address] #### 029626, VIDH, 766711, GFR, MG, JESSICA, CMP, LIP, TSH, ADIFF, CRP, PHOS, CBC, ANEU #### [address] [address] MALBRon 05-05-2023 U Creatinine 67.8 mg/dL Normal 28.0-117.0 [facility] ([place]) Comment on above: Performed By: #### D COLBY, INSLN, CPEP, ANKUR, HCV1, MADYSON, GEOVANNA, GGT, PTH #### [place] [address] #### 009094, VIDH, 044991, GFR, MG, JESSICA, CMP, LIP, TSH, ADIFF, CRP, PHOS, CBC, ANEU #### [address] [address] U Microalb 5344 mcg/dL Normal [facility] ([place]) Comment on above: Performed By: #### D PETRONAAS, INSLN, CPEP, ANKUR, HCV1, MADYSON, GEOVANNA, GGT, PTH #### [place] [address] #### 168983, VIDH, 648220, GFR, MG, JESSICA, CMP, LIP, TSH, ADIFF, CRP, PHOS, CBC, ANEU #### [address] [address] U Ratio Alb/Cre 79 mcg/mg High 0-30 [facility] ([place]) Comment on above: Performed By: #### Amy HEAS, INSLN, CPEP, ANKUR, HCV1, MADYSON, GEOVANNA, GGT, PTH #### [place] [address] #### 637338, VIDH, 308449, GFR, MG, JESSICA, CMP, LIP, TSH, ADIFF, CRP, PHOS, CBC, ANEU #### [address] [address] VIDHon 05-05-2023 Vit. D 25-Hydroxy 25.9 ng/mL Normal [facility] ([place]) Comment on above: Result Comment: Inte rpretive Values Based on Total 25(OH) Vitamin D: Deficient <20 ng/mL Insufficient 20 - <30 ng/mL Sufficient 30-100 ng/mL Performed By: #### D HEAS, INSLN, CPEP, ANKUR, HCV1, MADYSON, GEOVANNA, GGT, PTH #### [address] [address] #### 773421, VIDH, 235226, GFR, MG, JESSICA, CMP, LIP, TSH, ADIFF, CRP, PHOS, CBC, ANEU #### [place] [address] [place], [place] [address] LABORATORYOrdered By: SYSTEM SYSTEM on 11-04-2022 25-hydroxyvitamin [...] Time Vital Sign Value Performing Clinician Facility 03-14-2025 02:56-0400 Body temperature 98 [degF] Adelina Guallpa SURGERY NURSE-C Work Phone: [facility] 03-14-2025 02:56-0400 Diastolic blood pressure 92 mm[Hg] Adelina Guallpa SURGERY NURSE-C Work Phone: [facility] 03-14-2025 02:56-0400 Heart rate 69 /min Adelina Guallpa SURGERY NURSE-C Work Phone: [facility] 03-14-2025 02:56-0400 Respiratory rate 18 /min Adelina Guallpa SURGERY NURSE-C Work Phone: [facility] 03-14-2025 02:56-0400 SaO2% (BldA) [Mass fraction] 95 % Adelina Guallpa SURGERY NURSE-C Work Phone: [facility] 03-14-2025 02:56-0400 Systolic blood pressure 160 mm[Hg] Adelina Guallpa SURGERY NURSE-C Work Phone: [facility] 03-14-2025 01:04-0400 Body height 154.94 cm Adelina Guallpa SURGERY NURSE-C Work Phone: [facility] 03-14-2025 01:04-0400 Body mass index (BMI) [Ratio] 19.1 kg/m2 Adelina Guallpa SURGERY NURSE-C Work Phone: [facility] 03-14-2025 01:04-0400 Body weight 45.8 kg Adelina Guallpa SURGERY NURSE-C Work Phone: [facility] 06-08-2024 16:41-0500 Heart rate 81 /min TYSON KNAPP MD [facility] 06-08-2024 16:41-0500 Respiratory rate 18 /min TYSON KNAPP MD [facility] 06-08-2024 16:12-0500 Body temperature 98.06 [degF] TYSON KNAPP MD [facility] 06-08-2024 16:12-0500 Body weight 50 kg TYSON KNAPP MD [facility] 06-08-2024 16:12-0500 Diastolic Blood Pressure Non-Invasive 62 mm[Hg] TYSON KNAPP MD [facility] 06-08-2024 16:12-0500 Heart rate 101 /min TYSON KNAPP MD [facility] 06-08-2024 16:12-0500 Respiratory rate 16 /min TYSON KNAPP MD [facility] 06-08-2024 16:12-0500 Systolic Blood Pressure Non-Invasive 163 mm[Hg] TYSON KNAPP MD [facility] 03-07-2024 16:30-0400 Body temperature 97.2 [degF] Braden Hopkins MD MPH Work Phone: [facility] 03-07-2024 16:30-0400 Diastolic blood pressure 72 mm[Hg] Braden Hopkins MD MPH Work Phone: [facility] 03-07-2024 16:30-0400 Heart rate 74 /min Braden Hopkins MD MPH Work Phone: [facility] 03-07-2024 16:30-0400 Respiratory rate 18 /min Braden Hopkins MD MPH Work Phone: [facility] 03-07-2024 16:30-0400 SaO2% (BldA) [Mass fraction] 96 % Braden Hopkins MD MPH Work Phone: [facility] 03-07-2024 16:30-0400 Systolic blood pressure 141 mm[Hg] Braden Hopkins MD MPH Work Phone: [facility] 03-07-2024 11:49-0400 Body height 154.9 cm Braden Hopkins MD MPH Work Phone: [facility] 03-07-2024 11:49-0400 Body mass index (BMI) [Ratio] 20.29 kg/m2 Braden Hopkins MD MPH Work Phone: [facility] 03-07-2024 11:49-0400 Body weight 48.7 kg Braden Hopkins MD MPH Work Phone: [facility] 03-02-2024 10:36-0400 Body temperature 97.3 [degF] Braden Hopkins MD MPH Work Phone: [facility] 03-02-2024 10:36-0400 Diastolic blood pressure 72 mm[Hg] Braden Hopkins MD MPH Work Phone: [facility] 03-02-2024 10:36-0400 Heart rate 103 /min Braden Hopkins MD MPH Work Phone: [facility] 03-02-2024 10:36-0400 Systolic blood pressure 110 mm[Hg] Braden Hopkins MD MPH Work Phone: [facility] 02-14-2024 14:29-0400 Body temperature 97.5 [degF] Braden Hopkins MD MPH Work Phone: [facility] 02-14-2024 14:29-0400 Diastolic blood pressure 63 mm[Hg] Braden Hopkins MD MPH Work Phone: [facility] 02-14-2024 14:29-0400 Heart rate 106 /min Barden Hopkins MD MPH Work Phone: [facility] 02-14-2024 14:29-0400 Respiratory rate 18 /min Braden Hopkins MD MPH Work Phone: [facility] 02-14-2024 14:29-0400 SaO2% (BldA) [Mass fraction] 100 % Braden Hopkins MD MPH Work Phone: [facility] 02-14-2024 14:29-0400 Systolic blood pressure 140 mm[Hg] Braden Hopkins MD MPH Work Phone: [facility] 12-26-2023 15:45-0400 Body temperature 97.2 [degF] Braden Hopkins MD MPH Work Phone: [facility] 12-26-2023 15:45-0400 Diastolic blood pressure 60 mm[Hg] Braden Hopkins MD MPH Work Phone: [facility] 12-26-2023 15:45-0400 Heart rate 89 /min Barden Hopkins MD MPH Work Phone: [facility] 12-26-2023 15:45-0400 Respiratory rate 18 /min Braden Hopkins MD MPH Work Phone: [facility] 12-26-2023 15:45-0400 SaO2% (BldA) [Mass fraction] 96 % Braden Hopkins MD MPH Work Phone: [facility] 12-26-2023 15:45-0400 Systolic blood pressure 132 mm[Hg] Braden Hopkins MD MPH Work Phone: [facility] 12-26-2023 11:51-0400 Body mass index (BMI) [Ratio] 19.66 kg/m2 Braden Hopkins MD MPH Work Phone: [facility] 12-26-2023 11:51-0400 Body weight 47.2 kg Braden Hopkins MD MPH Work Phone: [facility] 12-02-2023 09:09-0400 Body mass index (BMI) [Ratio] 19.08 kg/m2 Braden Hopkins MD MPH Work Phone: [facility] 12-02-2023 09:09-0400 Body temperature 96.3 [degF] Braden Hopkins MD MPH Work Phone: [facility] 12-02-2023 09:09-0400 Body weight 45.81 kg Braden Hopkins MD MPH Work Phone: [facility] 12-02-2023 09:09-0400 Diastolic blood pressure 82 mm[Hg] Braden Hopkins MD MPH Work Phone: [facility] 12-02-2023 09:09-0400 Heart rate 87 /min Braden Hopkins MD MPH Work Phone: [facility] 12-02-2023 09:09-0400 Systolic blood pressure 131 mm[Hg] Braden Hopkins MD MPH Work Phone: [facility] 11-07-2023 14:55-0400 Body temperature 97.7 [degF] Braden Hopkins MD MPH Work Phone: [facility] 11-07-2023 14:55-0400 Diastolic blood pressure 59 mm[Hg] Braden Hopkins MD MPH Work Phone: [facility] 11-07-2023 14:55-0400 Heart rate 88 /min Braden Hopkins MD MPH Work Phone: [facility] 11-07-2023 14:55-0400 Respiratory rate 15 /min Braden Hopkins MD MPH Work Phone: [facility] 11-07-2023 14:55-0400 SaO2% (BldA) [Mass fraction] 97 % Braden Hopkins MD MPH Work Phone: [facility] [facility] 11-07-2023 14:55-0400 Systolic blood pressure 128 mm[Hg] Braden Hopkins MD MPH Work Phone: [facility] 11-07-2023 10:49-0400 Body height 154.9 cm Braden Hopkins MD MPH Work Phone: [facility] 11-07-2023 10:49-0400 Body mass index (BMI) [Ratio] 18.66 kg/m2 Braden Hopkins MD MPH Work Phone: [facility] 11-07-2023 10:49-0400 Body weight 44.8 kg Braden Hopkins MD MPH Work Phone: [facility] 10-14-2023 08:54-0400 Body height 157.5 cm Braden Hopkins MD MPH Work Phone: [facility] 10-14-2023 08:54-0400 Body mass index (BMI) [Ratio] 17.85 kg/m2 Braden Hopkins MD MPH Work Phone: [facility] 10-14-2023 08:54-0400 Body weight 44.27 kg Braden Hopkins MD MPH Work Phone: [facility] 10-14-2023 08:54-0400 Diastolic blood pressure 84 mm[Hg] Braden Hopkins MD MPH Work Phone: [facility] 10-14-2023 08:54-0400 Heart rate 112 /min Braden Hopkins MD MPH Work Phone: [facility] 10-14-2023 08:54-0400 Systolic blood pressure 142 mm[Hg] Braden Hopkins MD MPH Work Phone: [facility] 08-21-2023 06:59-0500 Body temperature 98.1 [degF] SURGERY NURSE-C Adelina Guallpa SURGERY NURSE Work Phone: [facility] 08-21-2023 06:59-0500 Diastolic blood pressure 58 mm[Hg] SURGERY NURSE-C Adelina Guallpa SURGERY NURSE Work Phone: [facility] 08-21-2023 06:59-0500 Heart rate 83 /min SURGERY NURSE-C Adelina Guallpa SURGERY NURSE Work Phone: [facility] 08-21-2023 06:59-0500 Respiratory rate 16 /min SURGERY NURSE-C Adelina Guallpa SURGERY NURSE Work Phone: [facility] 08-21-2023 06:59-0500 SaO2% (BldA) [Mass fraction] 98 % SURGERY NURSE-C Adelina Guallpa SURGERY NURSE Work Phone: [facility] 08-21-2023 06:59-0500 Systolic blood pressure 133 mm[Hg] SURGERY NURSE-C Adelina Guallpa SURGERY NURSE Work Phone: [facility] 08-21-2023 05:06-0500 Body height 154.94 cm SURGERY NURSE-C Adelina Guallpa SURGERY NURSE Work Phone: [facility] 08-21-2023 05:06-0500 Body mass index (BMI) [Ratio] 18 kg/m2 SURGERY NURSE-C Adelina Guallpa SURGERY NURSE Work Phone: [facility] 08-21-2023 05:06-0500 Body weight 43.27 kg SURGERY NURSE-C Adelina Guallpa SURGERY NURSE Work Phone: [facility] 08-10-2023 12:29-0500 Body temperature 98.1 [degF] SURGERY NURSE-C Adelina Guallpa SURGERY NURSE Work Phone: [facility] 08-10-2023 12:29-0500 Diastolic blood pressure 49 mm[Hg] SURGERY NURSE-C Adelina Guallpa SURGERY NURSE Work Phone: [facility] 08-10-2023 12:29-0500 Heart rate 89 /min SURGERY NURSE-C Adelina Guallpa SURGERY NURSE Work Phone: [facility] 08-10-2023 12:29-0500 Respiratory rate 14 /min SURGERY NURSE-C Adelina Guallpa SURGERY NURSE Work Phone: [facility] 08-10-2023 12:29-0500 SaO2% (BldA) [Mass fraction] 99 % SURGERY NURSE-C Adelina Guallpa SURGERY NURSE Work Phone: [facility] 08-10-2023 12:29-0500 Systolic blood pressure 121 mm[Hg] SURGERY NURSE-C Adelina Guallpa SURGERY NURSE Work Phone: [facility] 08-09-2023 13:17-0500 Body height 157.48 cm SURGERY NURSE-C Adelina Guallpa SURGERY NURSE Work Phone: [facility] 08-09-2023 13:17-0500 Body weight 46.4 kg SURGERY NURSE-C Adelina Guallpa SURGERY NURSE Work Phone: [facility] 08-07-2023 07:52-0500 Inhaled oxygen flow rate 2 L/min SURGERY NURSE-C Adelina Guallpa SURGERY NURSE Work Phone: [facility] 08-05-2023 22:20-0500 Body mass index (BMI) [Ratio] 18.7 kg/m2 SURGERY NURSE-C Adelina Guallpa SURGERY NURSE Work Phone: [facility] 08-05-2023 18:43-0500 Inhaled oxygen concentration 1.5 % SURGERY NURSE-C Adelina Guallpa SURGERY NURSE Work Phone: [facility] Encounters Encounter Date Encounter Type Care Provider Facility Start: 03-14-2025 End: 03-14-2025 Emergency department patient visit Adelina KAPLANC Work Phone: -Emergency Department Work Phone: Start: 02-12-2025 End: 02-16-2025 ambulatory ADELINA WAGNERPKINS CHECKER LOADER - PATIENT SAFETY ATTENDANT Facility:[facility] Start: 02-12-2025 End: 02-16-2025 Outreach Lab ADELINA WAGNERPKINS CHECKER LOADER - PATIENT SAFETY ATTENDANT [facility] Start: 07-26-2024 End: 07-30-2024 ambulatory ADELINA Amy SALONI CHECKER LOADER - PATIENT SAFETY ATTENDANT Facility:[facility] Start: 07-26-2024 End: 07-30-2024 Outreach Lab ADELINA WAGNERPKINS CHECKER LOADER - PATIENT SAFETY ATTENDANT [facility] Start: 06-08-2024 End: 06-08-2024 Emergency department patient visit TYSON KNAPP MD [facility] Start: 03-07-2024 End: 03-07-2024 Subsequent hospital visit by physician Braden Hopkins MD MPH Work Phone: [facility] Comment on above: 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); Asymptomatic microscopic hematuria Start: 11-22-2023 End: 11-22-2023 Subsequent hospital visit by physician Robinson Daigle [facility] Comment on above: Ureteral mass Start: 11-22-2023 End: 11-22-2023 ambulatory BRADEN Shields [facility] Start: 11-17-2023 End: 11-22-2023 ambulatory ADELINA GUALLPA CHECKER LOADER - PATIENT SAFETY ATTENDANT Facility:B Start: 11-17-2023 End: 11-21-2023 Outreach Lab JULIUS BENJAMIN MD [facility] Start: 11-07-2023 End: 11-07-2023 ambulatory [facility] Start: 11-07-2023 End: 11-07-2023 Subsequent hospital visit by physician Braden Hopkins MD MPH Work Phone: [facility] Comment on above: Mass of ureter (Prim kasey Dx); Ureteral mass Start: 11-03-2023 End: 11-08-2023 ambulatory [facility] Start: 11-03-2023 End: 11-03-2023 ambulatory [facility] Start: 11-03-2023 End: 11-03-2023 Encounter for other preprocedural examination [facility] Start: 11-03-2023 End: 11-03-2023 Subsequent hospital visit by physician Tao [id number] Cr Nonv1 Holter/Ecg Resource [facility] Comment on above: Ureteral mass Start: 10-31-2023 End: 10-31-2023 ambulatory ADELINA CROFT [facility] Start: 10-14-2023 End: 10-14-2023 Office outpatient new 60 minutes Braden Hopkins MD MPH Work Phone: [facility] 1 Comment on above: Ureteral mass (Prima ry Dx); Mass of ureter Start: 10-14-2023 End: 10-14-2023 ambulatory [facility] Start: 09-30-2023 End: 10-05-2023 ambulatory ADELINA GUALLPA CHECKER LOADER - PATIENT SAFETY ATTENDANT Facility:[facility] Start: 09-22-2023 End: 09-27-2023 ambulatory ADELINA GUALLPA CHECKER LOADER - PATIENT SAFETY ATTENDANT Facility:[facility] Start: 09-22-2023 End: 09-26-2023 Outreach Lab ADELINA GUALLPA CHECKER LOADER - PATIENT SAFETY ATTENDANT [facility] Start: 08-24-2023 End: 08-25-2023 ambulatory ADELINA Reyes SALONI CHECKER LOADER - PATIENT SAFETY ATTENDANT Facility:[facility] Start: 08-24-2023 End: 08-24-2023 Patient encounter procedure ADELINA Amy GUALLPA CHECKER LOADER - PATIENT SAFETY ATTENDANT [facility] Start: 08-22-2023 End: 08-22-2023 ambulatory SURGERY NURSE-C Adelina Guallpa SURGERY NURSE Work Phone: [facility] Work Phone: Start: 08-22-2023 End: 08-22-2023 Patient encounter procedure SURGERY NURSE-C Adelina Guallpa SURGERY NURSE Work Phone: [facility]-Laboratory, Specimen Work Phone: Start: 08-21-2023 End: 08-21-2023 Emergency department patient visit SURGERY NURSE-C Adelina Guallpa SURGERY NURSE Work Phone: [facility]-Emergency Department Work Phone: Start: 08-10-2023 Non-patient / Non-visit SURGERY NURSE-C R thomas Guallpa SURGERY NURSE Work Phone: [facility] Work Phone: Start: 08-09-2023 Non-patient / Non-visit SURGERY NURSE-C R thomas Guallpa SURGERY NURSE Work Phone: [facility] Work Phone: Start: 08-08-2023 Non-patient / Non-visit SURGERY NURSE-C R thomas Guallpa SURGERY NURSE Work Phone: [facility] Work Phone: Start: 08-08-2023 Non-patient / Non-visit SURGERY NURSE-C R thomas Guallpa SURGERY NURSE Work Phone: [facility] Start: 08-07-2023 Non-patient / Non-visit SURGERY NURSE-C R thomas Guallpa SURGERY NURSE Work Phone: [facility] Work Phone: Start: 08-06-2023 Non-patient / Non-visit SURGERY NURSE-C Bree Guallpa SURGERY NURSE Work Phone: [facility] Work Phone: Start: 08-05-2023 Non-patient / Non-visit SURGERY NURSE-C Bree Guallpa SURGERY NURSE Work Phone: [facility] Work Phone: Start: 08-05-2023 End: 08-10-2023 Evaluation and management of inpatient SURGERY NURSE-C Adelina Guallpa SURGERY NURSE Work Phone: [facility]-Progressive Care Unit Work Phone: Start: 05-05-2023 End: 05-10-2023 ambulatory ADELINA GUALLAP CHECKER LOADER - PATIENT SAFETY ATTENDANT Facility:[facility] Start: 05-05-2023 End: 05-09-2023 Outreach Lab ADELINA GUALLPA CHECKER LOADER - PATIENT SAFETY ATTENDANT [facility] Start: 11-04-2022 End: 11-08-2022 Outreach Lab ADELINA GUALLPA CHECKER LOADER - PATIENT SAFETY ATTENDANT [facility] Start: 05-06-2022 End: 05-10-2022 Outreach Lab ADELINA GUALLPA CHECKER LOADER - PATIENT SAFETY ATTENDANT [facility] Start: 11-05-2021 End: 11-09-2021 Outreach Lab ADELINA GUALLPA CHECKER LOADER - PATIENT SAFETY ATTENDANT [facility] Start: 04-24-2021 End: 04-28-2021 Outreach Lab ADELINA GUALLPA CHECKER LOADER - PATIENT SAFETY ATTENDANT [facility] Procedures Date Procedure Procedure Detail Performing Clinician Start: 03-14-2025 SARS-CoV-2, Influenz a & RSV (PCR) Adelina Guallpa SURGERY NURSE-C Work Phone: Start: 03-14-2025 CT angiography of ch est with contrast Adelina Guallpa SURGERY NURSE-C Work Phone: Start: 03-14-2025 Estimated creatinine clearance Adelina Guallpa SURGERY NURSE-C Work Phone: Start: 03-07-2024 Glucose quantitative blood [...] Hopkins MD MPH Work Phone: Start: 12-26-2023 XR tomography Unspec ified body region Braden Hopkins MD MPH Work Phone: Start: 12-26-2023 Glucose quantitative blood xcpt reagent strip Braden Hopkins MD MPH Work Phone: Start: 12-26-2023 PULSE OXIMETRY, SPOT Ad am Cornelius Hopkins MD MPH Work Phone: Start: 11-08-2023 [...] Start: 11-07-2023 INSERT PERIPHERAL IV AD AM HUGOABHI Start: 11-07-2023 PULSE OXIMETRY, SPOT AD AM HUGOABHI Start: 11-07-2023 FULL CODE BRADEN PHAN Start: [...] 2000 panel - Serum or Plasma BRADEN ARIASABHI Start: 11-03-2023 CBC panel - Blood by Automated count BRADEN HOPKINS Start: 11-03-2023 COAGULATION SCREEN BRADEN ARIASABHI Start: 11-03-2023 EXTRA URINE RICH TUBE A ELVA HOPKINS Start: 11-03-2023 Hemoglobin A1c/Hemoglobin.total in Blood BRDAEN HOPKINS Start: 11-03-2023 MICROSCOPIC ONLY, URINE BRADEN HOPKINS Start: 11-03-2023 URINALYSIS WITH REFL EX CULTURE AND MICROSCOPIC BRADEN HOPKINS Start: 11-03-2023 REQUEST FOR PRE-ADMI SSION TESTING VISIT BRADEN HOPKINS Start: 08-09-2023 Computed tomography of abdomen and pelvis with intravenous contrast SURGERY NURSE-C Adelina Guallpa SURGERY NURSE Work Phone: Start: 08-09-2023 Fluoroscopic guidance N P-C Adelina Guallpa SURGERY NURSE Work Phone: Start: 08-09-2023 Insertion of stent i nto ureter SURGERY NURSE-C Adelina Guallpa SURGERY NURSE Work Phone: Start: 08-08-2023 CT of abdomen and pe lvis without contrast SURGERY NURSE-C Adelina Guallpa SURGERY NURSE Work Phone: Start: 08-08-2023 US urinary tract SURGERY NURSE-C Bree Guallpa SURGERY NURSE Work Phone: Start: 08-05-2023 Plain chest X-ray SURGERY NURSE-C Adelina Guallpa SURGERY NURSE Work Phone: Start: 08-05-2023 Bacteria identified in Blood by Culture SURGERY NURSE-C Adelina Guallpa SURGERY NURSE Work Phone: Start: 08-05-2023 SARS-CoV-2, Influenz a & RSV (PCR) SURGERY NURSE-C Adelina Guallpa SURGERY NURSE Work Phone: Start: 08-05-2023 Urine culture SURGERY NURSE-C Son Guallpa SURGERY NURSE Work Phone: Start: 06-27-1997 Surgery (qualifier value) ADELINA GUALLPA CHECKER LOADER - PATIENT SAFETY ATTENDANT Comment on above: Bowel Start: 06-27-1996 Removal of ovarian cyst ADELINA GUALLPA CHECKER LOADER - PATIENT SAFETY ATTENDANT Start: 06-27-1987 Hysterectomy ADELINA BUCHANAN CHECKER LOADER - PATIENT SAFETY ATTENDANT Refusal of treatment by patient Declined smoking cessation( Confirmed ) ADELINA GUALLPA CHECKER LOADER - PATIENT SAFETY ATTENDANT Plan of Treatment Date Care Activity Detail Author Start: 03-14-2025 [facility] Start: 03-13-2024 End: 03-13-2024 Patient encounter procedure 03/13/2024 10:50 AM EDT Procedure Visit [facility] [address] [place] [address] Braden Hopkins MD MPH [address] [facility] [place] [address] [facility] Start: 03-07-2024 End: 03-07-2024 Laparoscopy nephrectomy w/total ureterectomy Nephroureterectomy Laparoscopy Urothelial carcinoma of kidney, right (Multi) 03/07/2024 12:46 PM EDT [facility] Start: 03-07-2024 End: 03-07-2024 Admission to same day surgery center [facility] Comment on above: Robotic Assisted Nephroureterectomy [505 48 (CPT )] Nephroureterectomy L aparoscopy [26336 (CPT )] Start: 03-07-2024 End: 03-07-2024 Laparoscopy nephrectomy w/total ureterectomy [facility] Start: 03-07-2024 Subsequent hospital visit by physician [facility] Start: 02-26-2024 COVID-19 Vaccine ( season) COVID-19 Vaccine () [facility] Start: 02-26-2024 Influenza vaccination [facility] Start: 02-14-2024 End: 02-14-2024 Patient encounter procedure 02/14/2024 2:10 PM EDT Procedure Visit [facility] [address] [place] [address] Braden Hopkins MD MPH [id number] [place] [address] [facility] Start: 02-03-2024 Hemoglobin A1c measurement Diabetes: Hemoglobin A1C [facility] Start: 01-15-2024 End: 01-22-2024 Bacteria identified in Urine by Culture Urine Culture Microbiology Routine Carcinoma of right ureter (Multi) Asymptomatic microscopic hematuria Expected: 01/15/2024 (Approximate), Expires: 01/22/2024 [facility] Work Phone: Comment on above: Expected: 01/15/2024 (Approximate), Expi res: 01/22/2024 Start: 01-15-2024 End: 01-14-2025 Basic metabolic 2000 panel - Serum or Plasma Basic Metabolic Panel Lab Routine Carcinoma of right ureter (Multi) Expected: 01/15/2024 (Approximate), Expires: 01/14/2025 [facility] Service Area Work Phone: Comment on above: Expected: 01/15/2024 (Approximate), Expi res: 01/14/2025 Start: 01-15-2024 End: 01-14-2025 Blood type and Indirect antibody screen panel - Blood Type And Screen Lab Routine Carcinoma of right ureter (Multi) Expected: 01/15/2024 (Approximate), Expires: 01/14/2025 [facility] Work Phone: Comment on above: Expected: 01/15/2024 (Approximate), Expi res: 01/14/2025 Start: 01-15-2024 End: 01-14-2025 CBC panel - Blood by Automated count CBC Lab Routine Carcinoma of right ureter (Multi) Expected: 01/15/2024 (Approximate), Expires: 01/14/2025 [facility] Work Phone: Comment on above: Expected: 01/15/2024 (Approximate), Expi res: 01/14/2025 Start: 01-15-2024 End: 01-14-2025 ECG 12 lead ECG 12 lead ECG Routine Carcinoma of right ureter (Multi) Expected: 01/15/2024 (Approximate), Expires: 01/14/2025 [facility] Work Phone: Comment on above: Expected: 01/15/2024 (Approximate), Expi res: 01/14/2025 Start: 01-15-2024 End: 01-14-2025 PT and aPTT panel - Platelet poor plasma by Coagulation assay Coagulation Screen Lab Routine Carcinoma of right ureter (Multi) Asymptomatic microscopic hematuria Expected: 01/15/2024 (Approximate), Expires: 01/14/2025 [facility] Work Phone: Comment on above: Expected: 01/15/2024 (Approximate), Expi res: 01/14/2025 Start: 01-15-2024 End: 01-14-2025 Request for Pre-Admission Testing Visit Request for Pre-Admission Testing Visit Procedures Routine Carcinoma of right ureter (Multi) Expected: 01/15/2024 (Approximate), Expires: 01/14/2025 [facility] Work Phone: Comment on above: Expected: 01/15/2024 (Approximate), Expi res: 01/14/2025 Start: 01-15-2024 End: 01-14-2025 Urinalysis complete W Reflex Culture panel - Urine Urinalysis with Reflex Culture and Microscopic Lab Routine Carcinoma of right ureter (Multi) Expected: 01/15/2024 (Approximate), Expires: 01/14/2025 [facility] Work Phone: Comment on above: Expected: 01/15/2024 (Approximate), Expi res: 01/14/2025 Start: 01-13-2024 End: 01-13-2024 Patient encounter procedure 01/13/2024 9:10 AM EDT Office Visit [facility] [employer] [facility] 1 [address] [facility] [employer] [facility] [address] [place] [address] Braden Hopkins MD MPH [address] Department of Urology [place] [id number] [facility] [employer] [facility] 1 Start: 12-26-2023 End: 12-26-2023 Cysto w/urtroscopy&/pyeloscopy dx Nephroscopy Carcinoma of right ureter (Multi) 12/26/2023 12:29 PM EDT [facility] Start: 12-02-2023 End: 12-09-2023 Bacteria identified in Urine by Culture Urine Culture Microbiology Routine Carcinoma of right ureter (Multi) Asymptomatic microscopic hematuria Expected: 12/02/2023 (Approximate), Expires: 12/09/2023 [facility] Work Phone: Comment on above: Expected: 12/02/2023 (Approximate), Expi res: 12/09/2023 Start: 12-02-2023 End: 12-01-2024 Urinalysis complete W Reflex Culture panel - Urine Urinalysis with Reflex Culture and Microscopic Lab Routine Carcinoma of right ureter (Multi) Expected: 12/02/2023 (Approximate), Expires: 12/01/2024 [facility] Service Area Work Phone: Comment on above: Expected: 12/02/2023 (Approximate), Expi res: 12/01/2024 Start: 12-02-2023 End: 12-02-2023 Patient encounter procedure 12/02/2023 9:00 AM EDT Office Visit [place] [address] [place] [address] [address] [facility] [address] [place] [address] Braden Hopkins MD MPH [address] Department [place] [address] [facility] 1 Start: 10-14-2023 End: 10-21-2023 Bacteria identified in Urine by Culture Urine Culture Microbiology Routine Ureteral mass Expected: 10/14/2023 (Approximate), Expires: 10/21/2023 [facility] Work Phone: Comment on above: Expected: 10/14/2023 (Approximate), Expi res: 10/21/2023 Start: 10-14-2023 End: 10-13-2024 Basic metabolic 2000 panel - Serum or Plasma Basic Metabolic Panel Lab Routine Ureteral mass Expected: 10/14/2023 (Approximate), Expires: 10/13/2024 [facility] Service Area Work Phone: Comment on above: Expected: 10/14/2023 (Approximate), Expi res: 10/13/2024 Start: 10-14-2023 End: 10-13-2024 CBC panel - Blood by Automated count CBC Lab Routine Ureteral mass Expected: 10/14/2023 (Approximate), Expires: 10/13/2024 [facility] Work Phone: Comment on above: Expected: 10/14/2023 (Approximate), Expi res: 10/13/2024 Start: 10-14-2023 End: 10-13-2024 ECG 12 lead ECG 12 lead ECG Routine Ureteral mass Expected: 10/14/2023 (Approximate), Expires: 10/13/2024 [facility] Work Phone: Comment on above: Expected: 10/14/2023 (Approximate), Expi res: 10/13/2024 Start: 10-14-2023 End: 10-13-2024 PT and aPTT panel - Platelet poor plasma by Coagulation assay Coagulation Screen Lab Routine Ureteral mass Expected: 10/14/2023 (Approximate), Expires: 10/13/2024 [facility] Work Phone: Comment on above: Expected: 10/14/2023 (Approximate), Expi res: 10/13/2024 Start: 10-14-2023 End: 10-13-2024 Urinalysis complete W Reflex Culture panel - Urine Urinalysis with Reflex Culture and Microscopic Lab Routine Ureteral mass Expected: 10/14/2023 (Approximate), Expires: 10/13/2024 [facility] Work Phone: Comment on above: Expected: 10/14/2023 (Approximate), Expi res: 10/13/2024 Start: 08-21-2023 [facility] Start: 08-10-2023 Patient discharge [facility] Start: 08-08-2023 Consultation [facility] Start: 08-08-2023 Incentive spirometry [facility] Start: 08-08-2023 [facility] Start: 08-07-2023 Following clinical pathway protocol [facility] Start: 08-05-2023 Following clinical pathway protocol [facility] Start: 08-05-2023 Oxygen therapy [facility] Start: 08-05-2023 Ambulation without limitation [facility] Start: 08-05-2023 Assessment of risk of venous thromboembolism [facility] Start: 08-05-2023 Care regimes management [facility] Start: 08-05-2023 Insertion of catheter into peripheral vein [facility] Start: 08-05-2023 Measuring intake and output [facility] Start: 08-05-2023 Notification of physician [facility] Start: 08-05-2023 Providing care according to standard [facility] Start: 08-05-2023 Provision of activity privileges [facility] Start: 08-05-2023 Referral to occupational therapist [facility] Start: 08-05-2023 Referral to service [facility] Start: 08-05-2023 [facility] Start: 08-05-2023 Admission procedure [facility] Start: 08-05-2023 Hospital admission, emergency, from emergency room, medical nature [facility] Start: 08-05-2023 Blood culture [facility] Start: 08-05-2023 [facility] Start: 08-05-2023 Bacteria identified in Blood by Culture Blood Culture [facility] Start: 08-05-2023 Patient referral to dietitian [facility] Start: 02-25-2023 COVID-19 Vaccine ( season) COVID-19 Vaccine ( season) [facility] Start: 2007 Hepatitis B Vaccines (1 of 3 - Risk 3-dose series) Hepatitis B Vaccines (1 of 3 - Risk 3-dose series) [facility] Start: 2007 RSV patients and/or patients aged 60+ years (1 - 1-dose 60+ series) RSV patients and/or patients aged 60+ years (1 - 1-dose 60+ series) [facility] Start: 1997 Zoster Vaccines (1 of 2) Zoster Vaccines (1 of 2) [facility] Start: 1969 DTaP/Tdap/Td Vaccines (1 - Tdap) DTaP/Tdap/Td Vaccines (1 - Tdap) [facility] Start: 1966 Hepatitis A Vaccines (1 of 2 - Risk 2-dose series) Hepatitis A Vaccines (1 of 2 - Risk 2-dose series) [facility] Start: 1966 Urine screening for protein Diabetes: Urine Protein Screening [facility] Start: 1965 Hepatitis C screening Hepatitis C Screening [facility] Start: 1957 Diabetic foot examination Diabetes: Foot Exam [facility] Start: 1957 Glaucoma screening Diabetes: Retinopathy Screening [facility] Start: 1947 Lipid panel Lipid Panel [facility] Start: 1945 Medicare Annual Wellness Visit Medicare Annual Wellness Visit (AWV) [facility] Start: 1945 Screening for osteoporosis Bone Density Scan [facility] Bilirubin measuremen t, urine [facility] End: 12-26-2023 Continuous Pulse oximetry, In Phase 1 Continuous Pulse oximetry, In Phase 1 Respiratory Care Routine Continuous until discontinued starting 12/26/2023 [facility] Service Area Work Phone: Comment on above: Continuous until discontinued starting 0 12/26/2023 End: 11-22-2023 CT Kidney and Ureter and Urinary bladder 3D post processing WO and W contrast IV [facility] Area Work Phone: Comment on above: Once for 1 Occurrences starting 11/22/19 until 11/22/2023 Cysto w/urtroscopy&/pyeloscopy dx Ureteroscopy Mass of ureter Virtual [facility] OR Cysto w/urtroscopy&/pyeloscopy dx Nephroscopy Carcinoma of right ureter (Multi) [facility] OR End: 11-08-2023 ECG 12 lead [facility] Area Work Phone: Comment on above: Once for 1 Occurrences starting 11/08/19 until 11/08/2023 End: 11-07-2023 Glucose [Mass/volume] in Serum or Plasma POCT Glucose Point of Care Testing - Docked Device Routine Once (Lab) for 1 Occurrences starting 11/07/2023 until 11/07/2023 [facility] Area Work Phone: Comment on above: Once (Lab) for 1 Occurrences starting until 11/07/2023 End: 03-07-2024 Glucose [Mass/volume] in Serum or Plasma POCT Glucose Point of Care Testing - Docked Device Routine Once (Lab) for 1 Occurrences starting 03/07/2024 until 03/07/2024 [facility] Service Area Work Phone: Comment on above: Once (Lab) for 1 Occurrences starting until 03/07/2024 Hemoglobin [Presence ] in Urine [facility] Laparoscopy nephrect jennie w/total ureterectomy Nephroureterectomy Laparoscopy Carcinoma of right ureter (Multi) [facility] Measurement of keton es in urine using dipstick [facility] Microscopic urinalysis [facility] Non-gynecological cy tology method study Cytology Consultation (Non-Gynecologic) Pathology and Cytology Timed Mass of ureter Release Upon Ordering for 1 Occurrences starting 11/07/2023 [facility] Service Area Work Phone: Comment on above: Release Upon Ordering for 1 Occurrences starting 11/07/2023 Organism count, microscopic method [facility] Patient Education [facility] Work Phone: Patient referral [facility] Work Phone: pH of Urine [facility] Specific gravity of Urine [facility] Surgical pathology study Surgica l Pathology Exam Pathology and Cytology Timed Mass of ureter Release Upon Ordering for 1 Occurrences starting 11/07/2023 [facility] Work Phone: Comment on above: Release Upon Ordering for 1 Occurrences starting 11/07/2023 Surgical pathology study [facility] Service Area Work Phone: Comment on above: Release Upon Ordering for 1 Occurrences starting 12/26/2023, 1 completed Urine dipstick for glucose [facility] Urine dipstick for leukocyte esterase [facility] Urine dipstick for nitrite [facility] Urine dipstick for protein [facility] Urine examination [facility] Urine microscopy: epithelial cells [facility] Urine microscopy: re d cells [facility] Urobilinogen [Presen ce] in Urine [facility] End: 11-07-2023 Verify ABO/Rh Group Test (VERAB) Verify ABO/Rh Group Test (VERAB) Lab STAT STAT (Lab) for 1 Occurrences starting 11/07/2023 until 11/07/2023 [facility] Work Phone: Comment on above: STAT (Lab) for 1 Occurrences starting until 11/07/2023 White blood cell count [facility] Immunizations Immunization Date Immunization Notes Care Provider Fa cility 03-19-2022 influenza, high dose seasonal, preservative-free AEDLINA GUALLPA CHECKER LOADER - PATIENT SAFETY ATTENDANT [facility] Comment on above: Early/Late Reason: E heaven/Late Reason: Other: 03-19-2022 influenza virus vacc ine, unspecified formulation Braden Hopkins MD MPH Work Phone: [facility] Work Phone: 05-26-2021 COVID-19, mRNA, LNP- S, PF, 100 mcg or 50 mcg dose; Translations: [Moderna COVID-19 Vaccine] ADELINA GUALLPA CHECKER LOADER - PATIENT SAFETY ATTENDANT [facility] 04-02-2021 influenza, high dose seasonal, preservative-free; Translations: [Afluria PF Quadrivalent ] ADELINA GUALLPA CHECKER LOADER - PATIENT SAFETY ATTENDANT [facility] 10-10-2020 SARS-CoV-2 (COVID-19 ) mRNA-1273 vaccine ADELINA GUALLPA CHECKER LOADER - PATIENT SAFETY ATTENDANT [facility] Comment on above: Result Comment: 2020: [id number] 09-12-2020 SARS-CoV-2 (COVID-19 ) mRNA-1273 vaccine ADELINA GUALLPA CHECKER LOADER - PATIENT SAFETY ATTENDANT [facility] Comment on above: Result Comment: 2020: [id number] 03-28-2020 influenza, injectabl e, quadrivalent, preservative free; Translations: [Fluarix PF Quadrivalent ] ADELINA WAGNERPKINS CHECKER LOADER - PATIENT SAFETY ATTENDANT [facility] 03-22-2019 influenza, injectabl e, quadrivalent, preservative free; Translations: [Fluarix PF Quadrivalent ] ADELINA WAGNERPKINS CHECKER LOADER - PATIENT SAFETY ATTENDANT [facility] 03-21-2018 influenza virus vacc ine, unspecified formulation ADELINA WEBSTERKINS CHECKER LOADER - PATIENT SAFETY ATTENDANT [facility] 03-17-2017 influenza virus vacc ine, unspecified formulation ADELINA GUALLPA CHECKER LOADER - PATIENT SAFETY ATTENDANT [facility] 03-15-2016 influenza virus vacc ine, unspecified formulation ADELINA WAGNERPKINS CHECKER LOADER - PATIENT SAFETY ATTENDANT [facility] 03-15-2016 pneumococcal polysaccharide vaccine, 23 valent ADELINA WEBSTERKINS CHECKER LOADER - PATIENT SAFETY ATTENDANT [facility] 03-13-2015 influenza virus vacc ine, unspecified formulation ADELINA GUALLPA CHECKER LOADER - PATIENT SAFETY ATTENDANT [facility] 03-13-2015 pneumococcal conjuga te vaccine, 13 valent ADELINA WEBSTERKINS CHECKER LOADER - PATIENT SAFETY ATTENDANT [facility] 03-27-2014 influenza virus vacc ine, unspecified formulation ADELINA GUALLPA CHECKER LOADER - PATIENT SAFETY ATTENDANT [facility] 04-19-2013 influenza virus vacc ine, unspecified formulation ADELINA GUALLPA CHECKER LOADER - PATIENT SAFETY ATTENDANT [facility] 04-18-2012 influenza virus vacc ine, unspecified formulation ADELINA GUALLPA CHECKER LOADER - PATIENT SAFETY ATTENDANT [facility] Payers Date Payer Category Payer Self-pay [id number] 2022 Unknown [id number] 2019 Private Health Insurance [id number] 2019 Unknown [id number] 2018 Medicare [id number] 2018 Medicare [id number] [id number] 1945 Unknown [id number] 2.840.1.364264.3.579.2. 1947 Unknown [id number] 2.840.1.446355.3.579.2. 1947 Unknown [id number] 2.840.1.125755.3.579.2. 1947 Unknown [id number] 2.16840.1.145759.3.579.2. 1947 Unknown [id number] 2.16840.1.866501.3.579.2. 1947 Unknown [id number] 2.16.840.1.395459.3.579.2. 1947 Unknown [id number] 2.16.840.1.234649.3.579.2. 1947 Unknown [id number] 2.16.840.1.431354.3.579.2. 1947 Unknown [id number] 2.16.840.1.169601.3.579.2. 1947 Unknown [id number] 2.16.840.1.988307.3.579.2.1242 1947 Unknown [id number] 2.16.840.1.955983.3.579.2.1243 1947 Unknown [id number] 2.16.840.1.095042.3.579.2.1243 1947 Unknown [id number] 2.16.840.1.709131.3.579.2.1243 1947 Unknown [id number] 2.16840.1.169523.3.579.2.1243 1947 Unknown [id number] 2.16.840.1.409659.3.579.2.1244 1947 Unknown [id number] 2.16.840.1.049966.3.579.2.1244 1947 Unknown [id number] 2.16.840.1.047157.3.579.2.1244 1947 Unknown [id number] 2.16.840.1.575038.3.579.2.1244 1947 Unknown [id number] 2.16.840.1.775956.3.579.2.1244 1947 Unknown [id number] 2.16.840.1.082054.3.579.2.1244 1947 Unknown [id number] 2.16.840.1.310544.3.579.2.1244 1947 Unknown [id number] 2.16.840.1.019592.3.579.2.1244 1947 Unknown [id number] 2.16.840.1.336045.3.579.2.1245 1947 Unknown [id number] 2.16.840.1.828511.3.579.2.[address] [facility] *DO NOT USE* [id number] Unknown [id number] 2.16.840.1.576009.3.579.2.462 Social History Date Type Detail Facility Start: 02-09-2021 End: 11-29-2024 Heavy tobacco smoker (finding) [facility] Start: 1945 Sex Assigned At Female [facility] Start: 08-06-2023 End: 08-21-2023 Tobacco smoking status CTIS Unknown if ever smoked [facility] Start: 09-17-2019 Cigarettes [facility] Start: 10-14-2023 End: 03-14-2025 Tobacco smoking status NHIS Smokes tobacco daily [facility] Work Phone: History of tobacco use Cigarette Smoker [facility] Work Phone: Start: 10-14-2023 End: 10-31-2023 Tobacco use and exposure Smokeless tobacco non-user [facility] Work Phone: Start: 10-14-2023 Alcoholic beverage intake Lifetime non-drinker (finding) [facility] Work Phone: Start: 1945 Sex assigned at Not on file [facility] Work Phone: Start: 11-03-2023 End: 11-07-2023 Gender identity Not on file [facility] Start: 10-04-2023 End: 03-07-2024 Exposure to SARS-CoV-2 (event) Not sure [facility] Start: 11-07-2023 End: 12-26-2023 Alcoholic beverage intake Ex-drinker (finding) [facility] Work Phone: Start: 11-03-2023 End: 11-07-2023 History of Social function [facility] Work Phone: Start: 10-31-2023 Alcohol Comment Occasional [facility] Work Phone: Start: 01-03-2024 End: 01-13-2024 Exposure to SARS-CoV-2 (event) Unable to assess [facility] Sexual Orientation Raiza morataya [facility] Start: 12-20-2018 Sex Female (finding) [facility] Medical Equipment Procedure Code Equipment Code Equipment Origin al Text Equipment Identifier Dates Cystoscopy, with retrograde pyelogram and ureteral stent insertion ([id number]) Polymeric ureteral stent ([id number] FDA Start: 08-09-2023 USE A NEEDLE ONC E A DAY Start: 08-23-2023 Stent, [place], 6fr X 24cm - [id number] - [id number] Start: 11-07-2023 Stent, [place], 6fr X 24cm - [id number] Start: 12-26-2023 Goals Date Patient Goal Desired Activity /State Functional Status Date Assessment Result Facility 06-08-2024 Functional Status Independent Raiza escoto [facility] 08-10-2023 Functional status Ambulates [facility] Work Phone: Mental Status Date Assessment Result Facility 06-08-2024 Mental Status Oriented x 4 [facility] 08-21-2023 Cognitive function Level Of Cons ciousness Awake;Alert;Appropriate [facility] Work Phone: 08-10-2023 Cognitive function Voice/Name [facility] Work Phone: Clinical Notes 08-05-2023 to 03-14-2025 LaboratoryRadiologyDischarge Erica Hopkins MD MPH - 03/07/2024 1:05 PM Kiko Hopkins MD MPH - 03/07/2024 1:05 PM Trinidad Rosales - 03/06/2024 9:39 AM EDTDischarge Instructions Note Date & Type Note Facility 03-14-2025 Radiology Diagnostic study note [facility] Imaging Services [address] [place], [place] [address] CTA Chest W/WO Contrast MR#: [id number] Acct: [id number] Name: MAYTE SWEET Rep #: [id number] : 1945 F 80 From: Zana Apple MD PCP: EUSEBIO CashC Status: REG ER Study:CTA Chest W/WO Contrast Date of Exam: 03/14/25 Exam# [id number] Ordering Dr: Yudith Arias DO PROCEDURE: CTA CHEST W/WO CONTRAST 03/14/2025 REASON FOR EXAM: HEMOPTYSIS TECHNIQUE: Procedure Code: CTCTACHWW Modality: CT Procedure: CTA CHEST W/WO CONTRAST Multiplanar Sagittal and Coronal images were obtained. CONTRAST: OMNIPAQUE 350 VOLUME: 100 mL One or more dose reduction techniques were used (e.g., Automated exposure control, adjustment of the mA and/or kV according to patient size, use of iterative reconstruction technique). RADIATION DOSE SUMMARY: CTDlvol: 3.38 mGy DLP: 123 mGycm COMPARISON: CT SCAN ON 01/13/2021. FINDINGS: Unchanged moderate sliding hiatal hernia. Unchanged multiple pulmonary blebs. Unchanged 1.8 cm nodule arising from the posterior aspect of the right thyroid lobe. No tracheal narrowing or deviation is seen. Mild bilateral peribronchial interstitial thickening, probably bronchitis. Normal enhancement of the main pulmonary artery and right and left pulmonary arteries. Normal enhancement of the bilateral peripheral pulmonary arteries. There is no demonstrated pulmonary embolism. Normal thoracic aorta and visualized great vessels. There is no demonstrated aortic dissection. Normal heart and pericardium. Normal mediastinum. Normal hilar regions. Normal visualized trachea and thickened bronchi. Normal pleura. Prior cholecystectomy. CT/CTA Chest W/WO Contrast IMPRESSION: NO demonstrated pulmonary embolism or arterial dissection. Unchanged moderate sliding hiatal hernia. Unchanged multiple pulmonary blebs. Unchanged 1.8 cm nodule arising from the posterior aspect of the right thyroid lobe. No tracheal narrowing or deviation is seen. Mild bilateral peribronchial interstitial thickening, probably bronchitis. Reading [facility] CC: MENDEZ Guallpa; Andrez Arias DO ~ Top Collar Maker: Signed [facility] 06-08-2024 Hospital Discharge instructions Patient Education 06/08/2024 [...] or higher after 2 days on antibiotics [phone] [employer]. [address] [place] [address]. All rights reserved. This information is not intended as a substitute for professional medical care. Always follow your healthcare professional's instructions. Follow Up Care 06/08/2024 16:08:58 With:ADELINA GUALLPA APRN, CNP Address: [address] [place] [address]- When:2-4 days [facility] 06-08-2024 Note Discharge Instructions Thank you for allowing [facility] to assist you with your healthcare needs. The following is important discharge information regarding your hospital visit. Diagnosis from Today's Visit Cellulitis What to Do Next Instructions from Your Care Team No qualifying data available. Post Acute Orders No qualifying data available. You Need to Schedule the Following Appointments Follow Up with ADELINA GUALLPA APRN, CNP When:Within 2-4 days Where:[address] [place] [address]- Allergies NKA Medications Please ask your primary [...] or higher after 2 days on antibiotics [phone] [employer]. [address] [place] [address]. All rights reserved. This information is not intended as a substitute for professional medical care. Always follow your healthcare professional's instructions. Additional Information VACCINATE! IT SAVES LIVES! Members of the community who have not yet received the COVID-19 vaccine and would like to receive it can visit one of [facility] vaccine clinics. There are many vaccine clinic locations within the [facility]. For locations and available times, please visit [email or web address].iowa.g [email or web address] It is important to note that some COVID mobile vaccine clinics are held outdoors and may be canceled in rainy or stormy conditions. To learn more about pediatric vaccinations (ages 5-11), we invite you to visit the [facility] webpage. https://www.[facility].org/pa ges/4754-Omtru-Yklswwqcwvi-Freque hknl-Qkobr-Knberjydl.html To learn more about the COVID-19 vaccine, we invite you to visit the CDC website for a list of frequently asked questions. https://www.cdc.gov/coronavirus/2 019-ncov/vaccines/faq.html [facility] Patient Portal Access Instructions: Stay connected with your healthcare team and access your personal medical information anytime with the [facility] Patient Portal. If you would like a full copy of your medical records please contact the [facility] Medical Records Department Tuesday through Tuesday between 8a.m. and 4:30p.m. Please follow the directions below to access the portal: 1.Access the email account you provided upon registration to the [facility].2.Look for an invitation email from [facility].3.Open the email and access the invitation link: Accept Invitation to [facility]4.Fill in the required batista to create your account. Sign into [email or web address] with your username and password that you [...] you will allow to register on the [facility] Patient Portal for access to your information. You can also access the [facility] Patient Portal on the [employer]. Simply click on Health Records under Health [...] Call your local pharmacy or go to http://[employer].GlycoPure/0P4Hu8v to find one close to you.3.Make use of household items: Use cat litter or old coffee grounds to dispose medications if other options are not available. Mix your drugs with these household products, seal them in an airtight container and throw it into the garbage. Call [facility]: [phone] to be sure your drugs can be [...] aware that I should contact my doctor. 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 The following is important discharge information regarding your hospital visit. Diagnosis from Today's Visit Cellulitis What to Do Next Instructions from Your Care Team No qualifying data available. Post Acute Orders No qualifying data available. You Need to Schedule the Following Appointments Follow Up with ADELINA GUALLPA APRN, CNP When:Within 2-4 days Where:[address] [facility] [place] [address]- Allergies NKA Medications Please ask your primary [...] or higher after 2 days on antibiotics [phone] [employer]. [address] [place] [address]. All rights reserved. This information is not intended as a substitute for professional medical care. Always follow your healthcare professional's instructions. Additional Information VACCINATE! IT SAVES LIVES! Members of the community who have not yet received the COVID-19 vaccine and would like to receive it can visit one of [facility] vaccine clinics. There are many vaccine clinic locations within the [facility]. For locations and available times, please visit [email or web address].g [email or web address] It is important to note that some COVID mobile vaccine clinics are held outdoors and may be canceled in rainy or stormy conditions. To learn more about pediatric vaccinations (ages 5-11), we invite you to visit the [facility] webpage. https://www.akClinical Inks.org/pa federico/4376-Jklay-Ufgeifbyyhp-Freque dqsk-Lrqph-Dohxtqkoz.html To learn more about the COVID-19 vaccine, we invite you to visit the CDC website for a list of frequently asked questions. https://www.cdc.gov/coronavirus/2 019-ncov/vaccines/faq.html [facility] Patient Portal Access Instructions: Stay connected with your healthcare team and access your personal medical information anytime with the [facility] Patient Portal. If you would like a full copy of your medical records please contact the [facility] Medical Records Department Tuesday through Tuesday between 8a.m. and 4:30p.m. Please follow the directions below to access the portal: 1.Access the email account you provided upon registration to the [facility].2.Look for an invitation email from [facility].3.Open the email and access the invitation link: Accept Invitation to [facility]4.Fill in the required batista to create your account. Sign into [email or web address] with your username and password that you [...] you will allow to register on the [facility] Patient Portal for access to your information. You can also access the [facility] Patient Portal on the [employer]. Simply click on Health Records under Health Data and then click on the [employer] logo. HOW TO SAFELY DISPOSE OF PRESCRIPTION [...] Call your local pharmacy or go to http://[employer].GlycoPure/4O6Qo0x to find one close to you.3.Make use of household items: Use cat litter or old coffee grounds to dispose medications if other options are not available. Mix your drugs with these household products, seal them in an airtight container and throw it into the garbage. Call [facility]: [phone] to be sure your drugs can be [...] aware that I should contact my doctor. 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 In case of emergency, call [phone]. Follow-up appointment: You will receive a phone call with your follow-up appointment details if one has not already been scheduled for you. Please call if you need to reschedule. 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 Cystoscopy was performed 02/14/2024 and stents were [...] with cystoscopy and ureteroscopy and putting five gabonese up to level of tumor to help [...] the presence of Braden Hopkins MD MPH. 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 Cystoscopy was performed 02/14/2024 and stents were [...] with cystoscopy and ureteroscopy and putting five gabonese up to level of tumor to help [...] Hopkins MD MPH. documented in this encounter [facility] Work Phone: 03-06-2024 History of Present illness Narrative Pharmacy Medication History Review Mayte Sweet is a 79 y.o. 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 Pharmacy called the patient prior to their scheduled procedure and reviewed the patient's focjm-du-lrjqgwkhv medications for accuracy. 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 Patient has a recent fill of vitamin d3 50,000U, but states they have NOT started medication Shanthi Rosales [facility] Please reach out via Secure Chat for questions documented in this encounter [facility] Work Phone: 03-02-2024 Evaluation + Plan [...] with cystoscopy and ureteroscopy and putting five gabonese up to level of tumor to help localize that. Will do bowel prep in case there are any issues. [facility] Work Phone: 03-02-2024 Miscellaneous Notes Associated [...] with cystoscopy and ureteroscopy and putting five gabonese up to level of tumor to help localize that. Will do bowel prep in case there are any issues. 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 Cystoscopy was performed 02/14/2024 and stents were [...] with cystoscopy and ureteroscopy and putting five gabonese up to level of tumor to help [...] Hopkins MD MPH. documented in this encounter [facility] Work Phone: 02-14-2024 Evaluation + Plan [...] that radiates to groin, nausea/vomiting, or confusion. [facility] Work Phone: 02-14-2024 Miscellaneous Notes Associated [...] nausea/vomiting, or confusion. documented in this encounter [facility] Work Phone: 02-14-2024 History of Present [...] proliferation. 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 She has history of ex-lap done through [...] Scribe Attestation By signing my name below, IJory Scribe, attest that this documentation has been prepared under the direction and in the presence of Braden Hopkins MD MPH. documented in this encounter [facility] Work Phone: 01-13-2024 History of Present illness Narrative Subjective Mayte Sweet is a 78 y.o. female with a 2cm mid to lower pole R ureteral mass s/p URS who presents for POV. Patholog pathologists determined this to be atypical proliferation. 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 She has history of ex-lap done through [...] to surgery which can be done at [place]. Surgery at [facility]. Follow up for pre operative visit will be scheduled. Scribe Attestation By signing my name below, I, Saumya Delia Daniel attest that this documentation has been prepared under the direction and in the presence of Braden Hopkins MD MPH. documented in this encounter [facility] Work Phone: 12-26-2023 Hospital Discharge instructions Britany Morales MD - 12/26/2023 3:47 PM EDT DEPARTMENT OF Urology DISCHARGE INSTRUCTIONS -- Ureteroscopy, Biopsy, Tumor Ablation, Stent Exchange Outpatient Surgery C O N F I D E N T I A L I N F O R M A T I O N Mayte Sweet Call [phone] during regular daytime business hours (8:00 am [...] occur, please contact your doctor's office at [phone]. Any fever higher than 100.4, especially if [...] room/contact your physician. documented in this encounter [facility] Work Phone: 12-26-2023 Attending History and [...] proliferation. 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 She underwent [...] By signing my name below, I, Zo Cruzyesenia, Scribe attest that this documentation has been prepared under the direction and in the presence of Braden Hopkins MD MPH. [facility] Work Phone: 12-26-2023 Attending History and [...] proliferation. 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 She underwent [...] the presence of Braden Hopkins MD MPH. [facility] Work Phone: 12-26-2023 History and physical [...] proliferation. 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 She underwent [...] proliferation. 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 She underwent [...] Hopkins MD MPH. documented in this encounter [facility] Work Phone: 12-02-2023 Evaluation + Plan [...] patient understands and agrees with this plan. [facility] Work Phone: 12-02-2023 Miscellaneous Notes Associated [...] with this plan. documented in this encounter [facility] Work Phone: 12-02-2023 History of Present illness Narrative Subjective Mayte Sweet is a 78 y.o. female with a 2cm mid to lower pole R ureteral mass s/p URS who presents for POV. Patholog pathologists determined this to be atypical proliferation. 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 She underwent [...] By signing my name below, I, Zo CortezDelia attest that this documentation has been prepared under the direction and in the presence of Braden Hopkins MD MPH. documented in this encounter [facility] Work Phone: 11-07-2023 Hospital Discharge instructions Hesham Durbin MD - 11/07/2023 1:15 PM EDT DEPARTMENT OF Urology DISCHARGE INSTRUCTIONS Ureteroscopy Outpatient Surgery C O N F I D E N T I A L I N F O R M A T I O N Mayte Sweet Call [phone] during regular daytime business hours (8:00 am [...] occur, please contact your doctor's office at [phone]. Any fever higher than 100.4, especially if [...] will be removed. documented in this encounter [facility] Work Phone: 11-07-2023 Note Formatting of this n ote is different from the original. Selective cystology, Ureteroscopy with ureteral biopsy and tumor ablation, right ureteral stent exchange (R) Operative Note Date: 11/07/2023 OR Location: [facility] OR Name: Mayte Sweet, : 1945, Age: 78 y.o., , Sex: female Diagnosis Pre-op Diagnosis * Mass of ureter [N28.89] Post-op Diagnosis * Mass of ureter [N28.89] Procedures Selective cystology, Ureteroscopy with ureteral biopsy and tumor ablation, right ureteral stent exchange 23431 - MD CYSTO W/URTROSCOPY&/PYELOSCOPY DX CHG UROGRAPHY RETROGRADE WITH/WO KUB [91432] MD CYSTO W/INSERT URETERAL STENT [50961] MD CYSTO/PYELOSCOPY RESCJ PELVIC TUMOR [66331] Surgeons * Braden Hopkins - Primary Resident/Fellow/Other Ship Purser: Surgeons and Role: * Hesham Durbin MD - Assisting Procedure Summary Anesthesia: General ASA: III Anesthesia Staff: Anesthesiologist: Shreya Collins MD STRUCTURED CABLING TECHNICIAN: Derek Arceo APRN-STRUCTURED CABLING TECHNICIAN C-AA: AKANKSHA Will Estimated Blood Loss: 5mL [...] CONSULTATION (NON-GYNECOLOGIC) Braden Hopkins MD MPH 11/07/2023 1147 2 : RIGHT UPPER TRACT TUMOR Tissue URETER BIOPSY RIGHT SURGICAL PATHOLOGY EXAM Braden Hopkins MD MPH 11/07/2023 1225 Staff: Video Poker Floorman: Atilio Fang RN Relief Video Poker Floorman: Jeanie Huerta RN Relief Scrub: Kim Isaac RN Scrub Person: Cain Vidal; Jeanine Bowden RN Drains and/or Catheters: * None in log * Tourniquet Times: Implants: Implants Type Name Action Serial No. Stent STENT, INLAY OPTIMA, 6FR X 24CM - [id number] - [id number] Implanted [id number] Findings: 2-3 tumor at pelvic brim. Incomplete [...] stable. Condition: stable Attending Attestation: Braden Hopkins [facility] Work Phone: 11-07-2023 Miscellaneous Notes Selective cystology, Ureteroscopy with ureteral biopsy and tumor ablation, right ureteral stent exchange (R) Operative Note Date: 11/07/2023 OR Location: [facility] OR Name: Mayte Sweet, : 1945, Age: 78 y.o., , Sex: female Diagnosis Pre-op Diagnosis * Mass of ureter [N28.89] Post-op Diagnosis * Mass of ureter [N28.89] Procedures Selective cystology, Ureteroscopy with ureteral biopsy and tumor ablation, right ureteral stent exchange 42116 - MD CYSTO W/URTROSCOPY&/PYELOSCOPY DX CHG UROGRAPHY RETROGRADE WITH/WO KUB [74357] MD CYSTO W/INSERT URETERAL STENT [55789] MD CYSTO/PYELOSCOPY RESCJ PELVIC TUMOR [02308] Surgeons * Braden Hopkins - Primary Resident/Fellow/Other Ship Purser: Surgeons and Role: * Hesham Durbin MD - Assisting Procedure Summary Anesthesia: General ASA: III Anesthesia Staff: Anesthesiologist: Shreya Collins MD STRUCTURED CABLING TECHNICIAN: Derek Arceo APRN-STRUCTURED CABLING TECHNICIAN C-AA: AKANKSHA Will Estimated Blood Loss: 5mL [...] CONSULTATION (NON-GYNECOLOGIC) Braden Hopkins MD MPH 11/07/2023 7882 2 : RIGHT UPPER TRACT TUMOR Tissue URETER BIOPSY RIGHT SURGICAL PATHOLOGY EXAM Braden Cornelius Hopkins MD MPH 11/07/2023 1225 Staff: Video Poker Floorman: Atilio Fang RN Relief Video Poker Floorman: Jeanie Huerta RN Relief Scrub: Kim Isaac RN Scrub Person: Cain Vidal; Jeanine Bowden RN Drains and/or Catheters: * None in log * Tourniquet Times: Implants: Implants Type Name Action Serial No. Stent STENT, INLAY OPTIMA, 6FR X 24CM - [id number] - [id number] Implanted [id number] Findings: 2-3 tumor at pelvic brim. Incomplete [...] Attestation: Braden Hopkins documented in this encounter [facility] Work Phone: 11-07-2023 Attending History and [...] would like to request her imaging from [place] prior to moving forward with diagnostic ureteroscopy [...] of this patient. Plan: Request imaging from [place] If unable to obtain or not appropriate, order CT urogram Plan for diagnostic ureteroscopy and possible bx Scribe Attestation By signing my name below, IZo Scribe attest that this documentation has been prepared under the direction and in the presence of Braden Hopkins MD MPH. [facility] Work Phone: 11-07-2023 History and physical [...] would like to request her imaging from [place] prior to moving forward with diagnostic ureteroscopy [...] of this patient. Plan: Request imaging from [place] If unable to obtain or not appropriate, order CT urogram Plan for diagnostic ureteroscopy and possible bx Scribe Attestation By signing my name below, I, Zo Cortez, Scribe attest that this documentation has been prepared under the direction and in the presence of Braden Hopkins MD MPH. documented in this encounter [facility] Work Phone: 10-14-2023 Evaluation + Plan [...] would like to request her imaging from [place] prior to moving forward with diagnostic ureteroscopy with potential biopsy to assess the ureter and determine whether this mass is multi-focal and if endoscopic management is possible. If I am unable to obtain this or it is inappropriate for our needs, we discussed moving forward with imaging through a CT urogram. The patient understands and agrees with this plan. [facility] Work Phone: 10-14-2023 Miscellaneous Notes Associated [...] would like to request her imaging from [place] prior to moving forward with diagnostic ureteroscopy with potential biopsy to assess the ureter and determine whether this mass is multi-focal and if endoscopic management is possible. If I am unable to obtain this or it is inappropriate for our needs, we discussed moving forward with imaging through a CT urogram. The patient understands and agrees with this plan. documented in this encounter [facility] Work Phone: 10-14-2023 History of Present [...] Hopkins MD MPH. documented in this encounter [facility] Work Phone: 10-02-2023 Note . MICRO - Microbiology PROCEDURE: Urine Culture [*1] SOURCE: Urine, Clean Catch BODY SITE: COLLECTED DATE/TIME: 09/30/2023 17:01 EDT RECEIVED DATE/TIME: 10/01/2023 13:18 EDT START DATE/TIME: 10/01/2023 13:18 EDT FREE TEXT SOURCE: FINAL REPORTS Final Report [] Verified Date/Time/Personnel: 10/02/2023 09:09 EDT <10,000 cfu/ml. No Significant growth. Sensitivity not indicated. Performing Locations *1: This test was performed at: [facility], [address] [place] [address], [address] , [facility] ([place]) 08-10-2023 Discharge summary Note Date/Time August 10, 2023 10:53am [facility] Medical Records Department [address] [place] [address] Instructions for Home/Discharge Instructions 08/10/23 1052 MR#: [id number] Acct: [id number] Name: MAYTE SWEET Rep #:[id number] : 1945 78 From: Hesham roman MD PCP: MENDEZ Cash Sta tus:ADM IN Discharge Instructions Diet Discharge Diet: [...] Referrals / Follow Up: Adelina Guallpa NP, NP-C [Primary Care Provider] - Within 1 Week Roshan Simon MD [Med Staff - Active Staff] - Within 2 Weeks Disposition Disposition (needs filled in before D/C Order can be placed): Home, Self Care 08/10/23 1056<Electronically signed by Hesham Solomon MD>Hesham Solomon MD CC: MENDEZ Guallpa; Dr. Baldev Gaxiola DO; Dr. Roshan Pa MD; Dr. Art Alcaraz MD ~ Signed [facility] Work Phone: 1(499) 842-211902-14-2024 Consult note Author Roshan Simon [facility] August 10, 2023 8:04am Note Date/Time August 10, 2023 8:04am [facility] Medical Records Department [address] [place] [address] Consultation 08/10/23 0803 MR#: [id number] Acct: [id number] Name: MAYTE SWEET Rep #:[id number] : 1945 78 From: Roshan Simon MD PCP: MENDEZ Cash Sta tus:ADM IN Location: [place] [address] Consult Date of Consult: 08/10/23 Reason for [...] Pa MD; Dr. Art Alcaraz MD~ Signed [facility] Work Phone: 1(358) 685-980802-13-2024 Progress note Author Baldev Gaxiola [facility] August 09, 2023 1:41pm Note Date/Time August 09, 2023 12:18pm [facility] Medical Records Department [address] [place] [address] Progress Note - Hospitalist 08/09/23 1218 MR#: [id number] Acct: [id number] Name: MAYTE SWEET Rep #:[id number] : 1945 78 From: Baldev aquino DO PCP: MENDEZ Cash tus:ADM IN Location: [place] [address] Reason for Visit Reason for Visit: Diagnoses [...] 08/06/23 11:51 AG (Rec: 08/06/23 11:51 AG [id number]) Nutrition Malnutrition Evidence of Malnutrition Exists Yes [...] Physician: Baldev Gaxiola Performed By: Chalo Atkins [facility] Abdomen/Pelvis CT 08/08/23 12:36 IMPRESSION: 5.0 mm [...] is a 78-year-old female who presented to [facility] ED on 08/05/2023 with fever/chills, generalized [...] 35 minutes. Charges/Coding Visit Charges Inpatient E&M: 59725 Subs Hosp L2 08/09/23 1341 <Electronically signed by Baldev Gaxiola DO> Cosigner Signature (if applicable): CC: ~ Signed [facility] Work Phone: 1(622) 738-458702-13-2024 Consult note Author Roshan Simon [facility] August 09, 2023 12:10pm Note Date/Time August 09, 2023 6:13am [facility] Medical Records Department [address] [place] [address] Consultation - Urology 08/09/23608 MR#: [id number] Acct: [id number] Name: MAYTE SWEET Rep #:[id number] : 1945 78 From: Roshan Simon MD PCP: EUSEBIO CashC Elmer tus:ADM IN Location: [place] [address] Assessment & Plan Assessment/Plan (1) Sepsis: (2) [...] sup called, npo now and get consent [facility] Medical History (Updated 08/09/23 @ 06:13 by [...] mg-vit E 90 mg-zinc 40 mg-copper 1 fj-qxzccy-gvmoqf capsule (PreserVision AREDS-2) 1 tab PO BID [...] Freq: Status: Active Protocol: Document 08/06/23 11:51 (Rec: 08/06/23 11:51 [id number]) Nutrition Malnutrition Evidence of Malnutrition Exists Yes [...] 13:48 EST Reading Location ID and State: [facility] / [place] , Service support , 08/09/23 0613 <Electronically signed by Roshan [...] MD; Dr. Art Alcaraz MD ~* Signed [facility] Work Phone: 1(148) 986-143702-13-2024 Procedure [facility] 08-08-2023 Progress note Author [facility]dev [facility] August 08, 2023 5:16pm Note Date/Time August 08, 2023 2:24pm [facility] Medical Records Department [address] [place] [address] Progress Note - Hospitalist 08/08/23 1424 MR#: [id number] Acct: [id number] Name: MAYTE SWEET Rep #:[id number] : 1945 78 From: Baldev White cruz JARAMILLO PCP: MENDEZ Cash tus:ADM IN Location: [place] [address] Reason for Visit Reason for Visit: Diagnoses [...] 08/06/23 11:51 AG (Rec: 08/06/23 11:51 AG [id number]) Nutrition Malnutrition Evidence of Malnutrition Exists Yes [...] is a 78-year-old female who presented to [facility] ED on 08/05/2023 with fever/chills, generalized [...] 35 minutes. Charges/Coding Visit Charges Inpatient E&M: 64360 Subs Hosp L2 08/08/23 1716 <Electronically signed by Baldev Gaxiola DO> Cosigner Signature (if applicable): CC: ~ Signed [facility] Work Phone: 1(246) 518-308502-11-2024 Progress note Author Baldev [facility] August 07, 2023 2:48pm Note Date/Time August 07, 2023 2:44pm [facility] Medical Records Department [address] [facility] [place] [address] Progress Note - Hospitalist 08/07/23 1441 MR#: [id number] Acct: [id number] Name: MAYTE SWEET Rep #:[id number] : 1945 78 From: Baldev aquino DO PCP: MENDEZ Cash tus:ADM IN Location: [place] [address] Reason for Visit Reason for Visit: Diagnoses [...] 08/06/23 11:51 AG (Rec: 08/06/23 11:51 AG [id number]) Nutrition Malnutrition Evidence of Malnutrition Exists Yes [...] is a 78-year-old female who presented to [facility] ED on 08/05/2023 with fever/chills, generalized [...] 35 minutes. Charges/Coding Visit Charges Inpatient E&M: 30156 Subs Hosp L2 08/07/23 2805 <Electronically signed by Baldev Gaxiola DO> Cosigner Signature (if applicable): CC: ~ Signed [facility] Work Phone: 1(735) 741-896802-11-2024 Progress note Author Baldev Gaxiola [facility] August 07, 2023 2:41pm Note Date/Time August 06, 2023 12:23pm [facility] Medical Records Department [address] [place] [address] Progress Note - Hospitalist 08/06/23 1223 MR#: [id number] Acct: [id number] Name: MAYTE SWEET Rep #:[id number] : 1945 78 From: Baldev White juniorcruz DO PCP: Adelina Guallpa, MENDEZ Payne tus:ADM IN Location: [place] [address] Reason for Visit Reason for Visit: Diagnoses [...] 08/06/23 11:51 AG (Rec: 08/06/23 11:51 AG [id number]) Nutrition Malnutrition Evidence of Malnutrition Exists Yes [...] 93.6 H, Lymph % (Auto) 3.1 L, [place] % (Auto) 2.3, Eos % (Auto) 0.0, [...] Clarity Clear, Urine pH 6.5, Ur Specific [place] 1.010, Urine Protein 30 H, Urine Glucose [...] 85.7 H, Lymph % (Auto) 9.0 L, [place] % (Auto) 4.1, Eos % (Auto) 0.0, [...] is a 78-year-old female who presented to [facility] ED on 08/05/2023 with fever/chills, generalized [...] 35 minutes. Charges/Coding Visit Charges Inpatient E&M: 88917 Subs Hosp L2 08/07/23 1441 <Electronically signed by Baldev Gaxiola DO> Cosigner Signature (if applicable): CC: ~ Signed [facility] Work Phone: 1(602) 500-831902-11-2024 Progress note Author Art Alcaraz [facility] August 07, 2023 3:26am Note Date/Time August 07, 2023 3:24am [facility] Medical Records Department [address] [place] [address] Progress Note - Hospitalist 08/07/23323 MR#: [id number] Acct: [id number] Name: MAYTE SWEET Rep #:[id number] : 1945 78 From: Art Reyes PCP: MENDEZ Cash tus:ADM IN Location: [place] [address] Hospitalist Note Patient was tachycardic, once heart [...] Cosigner Signature (if applicable): CC: ~ Signed [facility] Work Phone: 1(307) 846-698302-10-2024 Discharge summary Author Virginia Gu [facility] August 05, 2023 11:51pm Note Date/Time August 05, 2023 6 :05pm [facility] Medical Records Department [address] [place] [address] Emergency Department Summary 08/05/23 MR#: [id number] Acct: [id number] Name: MAYTE SWEET Rep #:[id number] : 1945 78 From: Virginia Gu MD PCP: MENDEZ Cash tus:ADM IN Location: [place] [address] HPI History of Present Illness Chief Complaint: [...] other than urinary frequency with her hyperglycemia. [facility] Medical History Bowel obstruction COPD (chronic [...] mg-vit E 90 mg-zinc 40 mg-copper 1 ie-diacli-kyfqfu capsule (PreserVision AREDS-2) 1 tab PO BID [...] Medical decision making narrative: Patient placed on cardiac technician. IV line initiated. IV fluids given along [...] 93.6 H Lymph % (Auto) 3.1 L [place] % (Auto) 2.3 Eos % (Auto) 0.0 [...] Clarity Clear Urine pH 6.5 Ur Specific [place] 1.010 Urine Protein 30 H Urine Glucose [...] Adelina Guallpa NP Referrals: Adelina Guallpa NP, SURGERY NURSE-C [Primary Care Provider] - Disposition Disposition: [facility] What to do if you have Problems For any increased pain, shortness of breath, bleeding, nausea or vomiting, chestpain, or any unexpected problems, contact your Primary Care Provider. Call [facility] ([phone]) or report to the closest Emergency Room. Call 911 if necessary. 08/05/23 3001 <Electronically signed by Virginia Gu MD> Cosigner Signature (if applicable): CC: MENDEZ Guallpa ~ Signed [facility] Work Phone: 1(795) 912-977702-09-2024 History and physical note Author Art Alcaraz [facility] August 05, 2023 9:29pm Note Date/Time August 05, 2023 9 :04pm [facility] Medical Records Department [address] [place] [address] H&P Exam - Hospitalist 08/05/232033 MR#: [id number] Acct: [id number] Name: MAYTE SWEET Rep #:[id number] : 1945 78 From: Art Reyes PCP: MENDEZ Cash tus:ADM IN Location: [place] [id number]- [id number] HPI - General General Date of [...] COVID couple weeks ago and she recovered. [facility] Medical History Bowel obstruction COPD (chronic obstructive [...] mg-vit E 90 mg-zinc 40 mg-copper 1 pt-kekzjg-okudmk capsule (PreserVision AREDS-2) 1 tab PO BID [...] 93.6 H, Lymph % (Auto) 3.1 L, [place] % (Auto) 2.3, Eos % (Auto) 0.0, [...] Clarity Clear, Urine pH 6.5, Ur Specific [place] 1.010, Urine Protein 30 H, Urine Glucose [...] She does not have [place] power of attorney general for health. Her next of kin is her . After discussion of benefits/risks procedures involved with full code, DNR CC arrest and DNR CC, the patient optedfor DNRCC arrest with no intubation Patient doesN'T want artificial life support including intubation, tube feed, ventilator and/chest compression, central venous catheter, vasopressor and DC shock if needed Total time spent in brbz-ne-uimk encounter in discussion of advanced directive 17 minutes. Charges/Coding Visit Charges Inpatient E&M: 99107 Init Hosp L3 Procedures Hospitalists Procedures: 35861 Advncd Care Plan 30 Min 08/05/232128 <Electronically signed by Art Alcaraz MD> Cosigner Signature (if applicable): CC: MENDEZ Guallpa; Dr. Art Alcaraz MD~ Signed [facility] Work Phone: Consult note Author Fe Ceron [facility] August 10, 2023 11:35am Note Date/Time August 10, 2023 11:35am [facility] Medical Records Department [address] [place] [address] Counseling Note - Pharmacy 08/10/23 1134 MR#: [id number] Acct: [id number] Name: MAYTE SWEET Rep #:[id number] : 1945 78 From: Fe Ceron PCP: MENDEZ Cash tus:ADM IN Y Location: [place] [address] Pharmacy [facility] Service has performed discharge medication reconciliation [...] understanding of their dischargemedications. Patient counseled by pharmacy grad internMarc. Medications at Discharge Home Medications glimepiride 2 mg tablet 2 mg PO DAILY dm 09/13/19 simvastatin 40 mg tablet 40 mg PO QHS cholesterol 09/13/19 vit C 250 mg-vit E 90 mg-zinc 40 mg-copper 1 bh-escluh-ytmblv capsule (PreserVision AREDS-2) 1 tab PO BID 01/13/21 cholecalciferol (vitamin D3) 1,250 mcg (50,000 unit) capsule 1,250 mcg PO .MONTHLY supplement 08/05/23 losartan 25 mg tablet 25 mg PO DAILY bp 08/05/23 metformin 750 mg tablet,extended release 24 hr 750 mg PO DAILY dm 08/05/23 cefdinir 300 mg capsule 300 mg PO BID 7 days #14 caps 08/10/23 08/10/23 [id number] <Electronically signed by Fe Ceron> Date _ Fe Ceron Cosigner Signature (if applicable): Date CC: ~ Signed [facility] Work Phone: Discharge summary Author Fabrizio Sanz [facility] August 21, 2023 6:58am Note Date/Time August 21, 2023 5:26am [facility] Medical Records Department [address] [place] [address] Emergency Department Summary 08/21/23 MR#: [id number] Acct: [id number] Name: MAYTE SWEET Rep #:[id number] : 1945 78 From: Fabrizio Sanz MD PCP: MENDEZ Cash:NICKI ER Location: ED HPI History of Present [...] while so she does not have it. [facility] Medical History Anemia Bowel obstruction COPD [...] mg-vit E 90 mg-zinc 40 mg-copper 1 wp-oeoxyp-ytsaja capsule (PreserVision AREDS-2) 1 tab PO BID [...] the end. I printed off information from [place] [employer] terms of foods to eat [...] (Auto) 75.7 H Lymph % (Auto) 19.1 [place] % (Auto) 4.4 Eos % (Auto) 0.0 [...] 14 0RF Primary Care Provider: Adelina Guallpa NP Referrals: Adelina Guallpa NP, SURGERY NURSE-C [Primary Care Provider] - 3-5 Days Activity [...] your Primary Care Provider. Call [facility] ([phone]) or report to the closest Emergency Room. Call 911 if necessary. 08/21/23 0658 <Electronically signed by Fabrizio Sanz MD> Cosigner Signature (if applicable): CC: SURGERY NURSE-C Adelina Guallpa ~ Signed [facility] Work Phone: Evaluation + Plan note Future Appointments Appointment Date:05/15/2021 02:00:00 PM Scheduled Provider:ADELINA GUALLPA APRN, CNP Location:[facility] Appointment Type: OV Follow Up [facility] Evaluation + Plan note Future Appointments Appointment Date:05/11/2022 10:20:00 AM Scheduled Provider:ADELINA GUALLPA APRN, CNP Location:[facility] Appointment Type:PC OV Future Scheduled Tests Laboratory* Microalbumin Level Urine 05/16/22 Radiology* MA Mammo Screening Bilateral w/ Adonis 11/13/21 * BD Bone Density DEXA Axial Skeleton 11/13/21 [facility] Evaluation + Plan note Future Appointments Appointment Date:11/11/2022 10:40:00 AM Scheduled Provider:ADELINA GUALLPA APRN, CNP Location:[facility] Appointment Type:PC OV Follow Up Future Scheduled Tests Laboratory* Microalbumin Level Urine 11/08/22 * Microalbumin Level Urine 05/16/22 Radiology* MA Mammo Screening Bilateral w/ Adonis 11/13/21 * BD Bone Density DEXA Axial Skeleton 11/13/21 [facility] Evaluation + Plan note Future Appointments Appointment Date:05/12/2023 10:40:00 AM Scheduled Provider:ADELINA GUALLPA APRN, CNP Location:[facility] Appointment Type:PC OV Follow Up Future Scheduled Tests Laboratory* Microalbumin Level Urine 11/08/22 * Microalbumin Level Urine 05/16/22 [facility] Evaluation + Plan note Future Appointments Appointment Date:09/13/2023 02:20:00 PM Scheduled Provider:ADELINA GUALLPA APRN, CNP Location:[facility] Appointment Type:PC OV Follow Up Appointment Date:11/17/2023 09:00:00 AM Scheduled Provider: Location:[facility] Appointment Type:PC Nurse Lab Appointment Date:11/22/2023 09:00:00 AM Scheduled Provider:ADELINA GUALLPA APRN, CNP Location:[facility] Appointment Type:PC OV Follow Up Diagnostic [...] Level 11/21/23 * Complete Metabolic Panel 11/21/23 [facility] Evaluation + Plan note Future Appointments Appointment Date:11/10/2023 10:15:00 AM Scheduled Provider:JULIUS BENJAMIN MD Location:[facility] Appointment Type:ENDO OV Appointment Date:11/17/2023 09:00:00 AM Scheduled Provider: Location:[facility] Appointment Type:PC Nurse Lab Appointment Date:11/22/2023 09:00:00 AM Scheduled Provider:ADELINA GUALLPA APRN, CNP Location:[facility] [facility] Appointment Type:PC OV Follow Up Future [...] BD Bone Density DEXA Axial Skeleton 09/14/23 [facility] Evaluation + Plan note Future Appointments Appointment Date:11/22/2023 09:00:00 AM Scheduled Provider:ADELINA GUALLPA APRN, CNP Location:[facility] [facility] Appointment Type:PC OV Follow Up Future [...] BD Bone Density DEXA Axial Skeleton 09/14/23 [facility] Evaluation + Plan note Future Appointments Appointment Date:08/02/2024 01:00:00 PM Scheduled Provider:ADELINA GUALLPA APRN, CNP Location:[facility] Appointment Type:PC OV Future Scheduled Tests [...] BD Bone Density DEXA Axial Skeleton 09/14/23 [facility] evaluation + Plan note Future Appointments Appointment Date:02/21/2025 09:00:00 AM Scheduled Provider:ADELINA GUALLPA APRN, CNP Location:[facility] Appointment Type:PC OV Follow Up Future Scheduled Tests Radiology* XR Foot Minimum 3 Views Left 06/07/24 [facility] Evaluation note* Diagnosis Onset Date Resolution Status Elevated troponin acute Gram-negative bacteremia acu te Hyperglycemia acute Sepsis acute Ureteral stone acute UTI (urinary tract infection) [facility] Work Phone: Evaluation note* Diagnosis Ureteral mass- Primary Mass of ureter documented in this encounter [facility] Work Phone: Evaluation note* Diagnosis Mass [...] urea nitrogen (BUN) documented in this encounter [facility] Work Phone: Evaluation note* Diagnosis Ureteral mass documented in this encounter [facility] Work Phone: Evaluation note* Diagnosis Ureteral mass documented in this encounter [facility] Work Phone: Evaluation note* Diagnosis Carcinoma of right ureter (Multi)- Primary Asymptomatic microscopic hematuria documented in this encounter [facility] Work Phone: Evaluation note* Diagnosis Ureteral mass- Primary Mass of ureter Carcinoma of right ureter (Multi)- Primary Asymptomatic microscopic hematuria Urothelial carcinoma of kidney, 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, right (Multi) documented in this encounter [facility] Work Phone: Evaluation note* Diagnosis Ureteral mass- Primary Mass of ureter Carcinoma of right ureter (Multi)- Primary Asymptomatic microscopic hematuria Urothelial carcinoma of kidney, 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, right (Multi) documented in this encounter [facility] Work Phone: Evaluation note* Diagnosis Ureteral mass- Primary Mass of ureter Carcinoma of right ureter (Multi)- Primary Asymptomatic microscopic hematuria Urothelial carcinoma of kidney, 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 documented in this encounter [facility] Work Phone: Evaluation note* Diagnosis Ureteral mass- Primary Mass of ureter Carcinoma of right ureter (Multi)- Primary Asymptomatic microscopic hematuria Carcinoma of right ureter (Multi)- Primary Asymptomatic microscopic hematuria documented in this encounter [facility] Work Phone: Evaluation note* 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 Stop your 750 mg of metformin. See your doctor within the next week. You still may need a new medication. They may restart the glimepiride that you used to be taking.[facility] Work Phone: Hospital Discharge instructionsAdditional Instructions Your CT scan did not show any type of pneumonia blood clot or lung cancer changes. It did show inflammation to the lung tissue consistent with bronchitis. This is the most common and most likely reason for your hemoptysis/coughing up blood. Please take the prescribed medication as directed to help control any further inflammatory process. The cough and blood should improve over the next 5 to 7 days. If you have worsening of symptoms or any further concerns please return to the ER [facility] Work Phone: Progress note No data available for this section [facility] Reason for referral (narrative)No reason for referral information availableWCleveland Clinic Med[facility] Work Phone: Reason for visit Narrative* Auth/Cert Specialty Diagnoses / Procedures Referred By Twan t Referred To Contact Diagnoses Urothelial carcinoma of kidney, right (Multi) Urothelial carcinoma of kidney, 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] Procedures MD LAPAROSCOPY NEPHRECTOMY W/TOTAL URETERECTOMY MD ANASTOMSIS OF URETER MD CYSTO W/INSERT URETERAL STENT MD CYSTO W/URTROSCOPY&/PYELOSCOPY DX Robotic Assisted Nephroureterectomy Braden Hopkins [facility] [id number] [address] [place] [address] [place] [address] [place] [address] Referral ID Status Reason Start Date Expiration Date Visits Re quested Visits Authorized [id number] 1 1 [facility] Work Phone: Chief Complaint and Reason [...] stone UTI (urinary tract infection) Chief Complaint Admit Date COUGH March 14, 2025 1:04am Family History No Family History Records Found [...] Will No August 05 10:20pm Power of Forest Pathology Professor No August 05, 2023 10:20pm Advance Directive Response Recorded Date/ Time Living Will No August 21 5:09am Power of Forest Pathology Professor No August 21, 2023 5:09am Date Activated Date Inactivated Comments 11/07/2023 10:32 AM Date Activated Date Inactivated Comments 11/07/2023 10:32 AM Date Activated Date Inactivated Comments 12/26/2023 11:20 AM Date Activated Date Inactivated Comments 11/07/2023 10:32 AM 12/26/2023 11:20 AM Advance Directive Response Recorded Date/ Time Do you have a Healthcare Power of Forest Pathology Professor? No March 14, 2025 1:04am Reason for Referral Specialty Diagnoses / Procedures Referred By Contac t Referred To Contact Diagnoses Carcinoma of right ureter (Multi) Procedures ECG 12 lead Braden Hopkins [place] [facility] [address] [facility] [place] [phone] Referral ID Status Reason Start Date Expiration Date V isits Requested Visits Authorized [id number] Authorized 01/15/2024 01/14/2025 1 1 Specialty Diagnoses / Procedures Referred By Contac t Referred To Contact Radiology Diagnoses Ureteral mass Procedures CT urography w 3D volume rendered imaging [place] [facility] [address] [facility] [place] [address] Referral ID Status Reason Start Date Expiration Date Visits Requested Visits Authorized [id number] Authorized Perform Procedure 11/09/2023 11/08/2024 1 1 Specialty Diagnoses / Procedures Referred By Contac t Referred To Contact Diagnoses Ureteral mass Procedures ECG 12 lead [place] [facility] [address] [facility] [place] [address] Referral ID Status Reason Start Date Expiration Date V isits Requested Visits Authorized [id number] Authorized 10/14/2023 10/13/2024 1 1 Summary Purpose Additional Source Comments Care Team (unrecognized sect ion and content) Team Status: Active Member Role Status Dates Adelina Guallpa Family Provider Active Adelina Guallpa SURGERY NURSE, SURGERY NURSE-C Primary Care Provider Active Team Status: Active Member Role Status Dates Adelina Guallpa SURGERY NURSE, SURGERY NURSE-C Primary Care Provider Active Dr. Virginia Gu MD Emergency Provider Active Dr. Art Alcaraz MD Admit Provider, A ttending Provider, Other Provider Active Team Status: Active Member Role Status Dates Adelina Guallpa SURGERY NURSE, SURGERY NURSE-C Primary Care Provider Active Dr. Virginia Gu MD Emergency Provider Active Dr. Art Alcaraz MD Admit Provider, A ttending Provider, Other Provider Active Dr. Baldev Gaxiola DO Other Provider Active Team Status: Active Member Role Status Dates Adelina Guallpa SURGERY NURSE, SURGERY NURSE-C Primary Care Provider Active Dr. Virginia Gu MD Emergency Provider Active Dr. Art Alcaraz MD Admit Provider, Other Provider Active Dr. Baldev Gaxiola DO Attending Provider, Other Provider Active Team Status: Active Member Role Status Dates Adelina Guallpa SURGERY NURSE, SURGERY NURSE-C Primary Care Provider Active Dr. Toby Benitez MD Attending Provider Activ e Team Status: Active Member Role Status Dates Adelina Guallpa SURGERY NURSE, SURGERY NURSE-C Primary Care Provider Active Dr. Virginia Gu MD Emergency Provider Active Dr. Art Alcaraz MD Admit Provider, Other Provider Active Dr. Baldev Gaxiola DO Attending Provider, Other Provider Active Dr. Roshan Simon MD Other Provider Active Team Status: Inactive Member Role Status Dates Adelina Guallpa SURGERY NURSE, SURGERY NURSE-C Primary Care Provider Active Dr. Virginia Gu MD Emergency Provider Active Dr. Art Alcaraz MD Admit Provider, Other Provider Active Dr. Roshan Simon MD Other Provider Active Dr. Hesham Solomon MD Attending Provider Active Dr. Baldev Gaxiola DO Other Provider Active Team Status: Active Member Role Status Dates Adelina Guallpa SURGERY NURSE, SURGERY NURSE-C Primary Care Provider Active Dr. Virginia Gu MD Emergency Provider Active Dr. Art Alcaraz MD Admit Provider, Other Provider Active Dr. Roshan Simon MD Other Provider Active Dr. Hesham Solomon MD Attending Provider, Other Provider Active Dr. Baldev Gaxiola DO Other Provider Active Team Status: Inactive Member Role Status Dates Adelina Guallpa SURGERY NURSE, SURGERY NURSE-C Primary Care Provider Active Dr. Fabrizio Sanz MD Emergency Provider Active Team Status: Inactive Member Role Status Dates Adelina Guallpa SURGERY NURSE, SURGERY NURSE-C Primary Care Provider Active Dr. Fabrizio Sanz MD Attending Provider, Emergency Provider Active Team Status: Inactive Member Role Status Dates Adelina Guallpa SURGERY NURSE, SURGERY NURSE-C Primary Care Provider Active Dr. Roshan Simon MD Attending Provider, Referr ing Provider Active Bookkeeping Clerk Relationship Specialty Start Date End Date Adelina Guallpa, [facility]ER [facility] [address] [facility] [address] PCP - General Family Medicine 10/14/23 Bookkeeping Clerk Relationship Specialty Start Date End Date Adelina Guallpa [facility] [address] [facility] [address] PCP - General Family Medicine 10/14/23 Bookkeeping Clerk Relationship Specialty Start Date End Date Adelina Guallpa, [facility] [address] [facility] [address] PCP - General Family Medicine 10/14/23 Bookkeeping Clerk Relationship Specialty Start Date End Date Adelina Guallpa, [facility] [address] [facility] [address] PCP - General Family Medicine 10/14/23 Bookkeeping Clerk Relationship Specialty Start Date End Date Adelina Guallpa, [facility] [address] [facility] [address] PCP - General Family Medicine 10/14/23 Bookkeeping Clerk Relationship Specialty Start Date End Date Adelina Guallpa APRNBOSTON DIS[facility] [address] [facility] [address] PCP - General Family Medicine 10/14/23 Bookkeeping Clerk Relationship Specialty Start Date End Date Adelina Guallpa [facility] [address] [facility] [address] PCP - General Family Medicine 10/14/23 Bookkeeping Clerk Relationship Specialty Start Date End Date Adelina Guallpa [facility] [address] [facility] [address] PCP - General Family Medicine 10/14/23 Bookkeeping Clerk Relationship Specialty Start Date End Date Adelina Guallpa [facility] [address] [facility] [address] PCP - General Family Medicine 10/14/23 Bookkeeping Clerk Relationship Specialty Start Date End Date Adelina Guallpa [facility] [address] [facility] [address] PCP - General Family Medicine 10/14/23 Team Status: Active Member Role/Relationship Status Dates Adelina Guallpa SURGERY NURSE, SURGERY NURSE-C Primary care physicia n Active Team Status: Inactive Member Role/Relationship Status Dates Adelina Guallpa SURGERY NURSE, SURGERY NURSE-C Primary care physician Active Start: March 14, 2025 End: March 14, 2025 Dr. Andrez Arias , DO Emergency Departil nt Physician Active Start: March 14, 2025 End: March 14, 2025 Care Team (unrecognized sect ion and content) Care Team Personnel Name: ADELINA GUALLPA CHECKER LOADER - PATIENT SAFETY ATTENDANT Position: P4 Advanced Practice Nurse Member Role: Primary Care Physician Address: Address: [address] [facility] [place] [address]- Care Team Related Persons Name: KIM SWEET Address: Home [address] [place], [place] [id number] [place] Reason for Visit (unrecogniz ed section and content) Reason Comments Ureteral Mass Specialty Diagnoses / Procedures Referred By Contac t Referred To Contact Diagnoses Ureteral mass Procedures ECG 12 lead [place] [facility] [address] [facility] [place] [phone] Referral ID Status Reason Start Date Expiration Date V isits Requested Visits Authorized [id number] Authorized 10/14/2023 10/13/2024 1 1 Specialty Diagnoses / Procedures Referred By Contac t Referred To Contact Radiology Diagnoses Ureteral mass Procedures CT urography w 3D volume rendered imaging [place]aden [place] [facility] [address] [facility] Department of Urology [place] [phone] Referral ID Status Reason Start Date Expiration Date Visits Requested Visits Authorized [id number] Authorized Perform Procedure 11/09/2023 11/08/2024 1 1 [...] 1122 (Given - Provid er: Derek Arceo, CHECKER LOADER-STRUCTURED CABLING TECHNICIAN) lidocaine PF (Xylocaine) 10 mg/mL (1 %) [...] section and content) DATE CREATED AUTHOR 11/11/2023 [facility] DATE CREATED AUTHOR AUTHOR'S ORGANIZ ATION 11/22/2023 [facility] ([place]) DATE CREATED AUTHOR AUTHOR'S ORGANIZ ATION 01/12/2024 [facility] DATE CREATED AUTHOR AUTHOR'S ORGANIZ ATION 03/04/2024 [facility] DATE CREATED AUTHOR AUTHOR'S ORGANIZ ATION 03/09/2024 [facility] DATE CREATED AUTHOR AUTHOR'S ORGANIZ ATION 02/18/2025 [facility] DATE CREATED AUTHOR AUTHOR'S ORGANIZ ATION 03/15/2025 [facility] y [facility] Goals (unrecognized section and content) Goals may be documented in a n alternate section FOR RECORDS PERTAINING TO PATIENTS WHO ARE [...] BE BASED ON THE PRIMARY CLINICAL RECORDS. [facility]. provides no warranty or guarantee of the accuracy or completeness of information in this document.
--- NOTE | 2025-03-15 21:05 | RAD_ITS ---
PROCEDURE: CHEST PA AND LATERAL 03/15/2025 REASON FOR EXAM: HEMOPTYSIS TECHNIQUE: Procedure Code: RADCXR Modality: DX Procedure: CHEST PA AND LATERAL COMPARISON: CT angio chest 02/13/2020 FINDINGS: Hardware: None. Heart: The heart size is normal. Mediastinum: The mediastinal contour is unremarkable. Lungs: Right mid and lower lung zone airspace opacities. No pneumothorax or sizable pleural effusion. Bones: Degenerative changes are identified within the thoracic spine. RAD/Chest PA and Lateral IMPRESSION: Right mid and lower lung zone airspace opacities. Reading Location: [facility]RE[facility]
[2025-03-15 21:30] LABS: Hematocrit 41.5 % (37-47); Hemoglobin 14.0 g/dL (12.0-15.0); Immature Granulocytes Count 0.060 X10^3/uL (0.0-0.0); Mean Corp Hgb Conc 33.7 g/dL (32-36); Mean Corpuscular Volume 91.6 fL (81-99); Mean Platelet Vol. 9.6 fl (6.2-12.0); NRBC Flagged by Analyzer 0 % (0-5); Platelet Count 294 K/mm3 (150-450); RBC Distribution Width CV 12.7 % (11.6-14.6); RBC Distribution Width SD 42.4 fl (35.1-43.9); Red Blood Count 4.53 M/mm3 (4.2-5.4); White Blood Count 13.8 K/mm3 (4.4-11.0)
[2025-03-15 22:00] VITALS: BP 142/79; PULSE 91; RESP 25; TEMP 36.9; O2SAT 97
[2025-03-15 22:01] LABS: Anion Gap 13 (5-15); BUN 20 mg/dL (4-19); BUN/Creat Ratio 27.0 RATIO (10-20); Calcium,Total 9.6 mg/dL (7.6-11.0); Carbon Dioxide 21.5 mmol/L (21.0-32.0); Chloride 104 mmol/L (98-108); Estimated Creatinine Clearance 41.50 ml/min (50-250); Glucose 142 mg/dL (70-99); Potassium 4.1 mmol/L (3.3-5.1)
[2025-03-15 22:50] LABS: Partial Thromboplast Time 31.5 Seconds (24.1-36.2); Prothrombin Time (Protime)PT. 13.9 SECONDS (11.7-14.9)
--- NOTE | 2025-03-15 22:57 | HP.PCM.HOS_ITS ---
HPI - General General Date of Admission: 03/15/25 Date of Service: 03/15/25 Chief Complaint: Dyspnea, cough, hemoptysis. HPI Narrative The patient is a 80 y/o F w/ PMHx: COPD, Tobacco use, HTN, HLD, Diabetes mellitus type II, Hx SBO s/p prior bowel resection initially presented to the ED 03/14/2025 secondary to persistent cough with occasional hemoptysis, fatigue, subjective chills x 2 to 3 days with CTA obtained with no acute findings with concern for bronchitis discharged on oral doxycycline with some improvement who now re-presents to the [facility] ED on 03/15/25 as patient noted that since her discharge and return to home despite initially feeling improved she has had persistent ongoing fatigue, hemoptysis and dyspnea worse with exertion prompting ED return to be cautious. Workup in the ED included T98.3, heart rate 89, BP 164/94, respiratory rate 20, 90% on room air eventually desaturating down to 89% on room air however improving with most recent repeat vitals T98.5, heart rate 91, BP 142/79, respiratory rate 25, 97% on room air, CBC with WC 13.8, Hgb14, platelet 294 with left shift, unremarkable coags, BMP with BUN/creatinine 20/0.73, GFR 84, glucose 142, chest x-ray with right mid and lower lung zone opacities. In the ED patient is treated azithromycin 500 mg IV x 1, Rocephin 1 g IV x 1. [facility] Medical History Hypertension Wears glasses Easy bruising History of rheumatic fever Osteoporosis Tobacco use disorder, continuous Bowel obstruction Vitamin D deficiency COPD (chronic obstructive pulmonary disease) Hyperlipidemia Diabetes Home Medications ?Medication ?Instructions ?Recorded ?Last Taken ?Type simvastatin 40 mg tablet 40 mg PO QHS cholesterol Unknown History cholecalciferol (vitamin D3) 1,250 1,250 mcg PO .MONTH LY supplement 08/05/23 Unknown History mcg (50,000 unit) capsule losartan 25 mg tablet 25 mg PO DAILY bp 08/05/23 U nknown History metformin 500 mg tablet 500 mg PO BID 03/14/25 Unkno wn History Allergy/AdvReac Type Severity Reaction Status Date / Time No Known Allergies Allergy Verified 03/15/25 19:46 Family History Father CAD (coronary artery disease) Myocardial infarction Osteoarthritis Brother Multiple myeloma older younger brother Brain aneurysm younger brother Surgical History History of cystoscopy History of cholecystectomy History of intestinal surgery History of hysterectomy History of removal of ovarian cyst Social History household members: spouse Smoking Status: Current every day smoker tobacco type: cigarettes Tobacco: How many years used: 25 Electronic Cigarette Use: not used second hand exposure: Yes quit status: considering quitting substance use type: does not use ROS ROS Narrative Admission Review of Systems: CONSTITUTIONAL: No weight loss, + fever, chills, weakness or fatigue. HEENT: Eyes: No visual loss, blurred vision, double vision or yellow sclerae. Ears, Nose, Throat: No hearing loss, sneezing, congestion, runny nose or sore throat. SKIN: No rash or itching, lesions, wounds. CARDIOVASCULAR: No chest pain, chest pressure or chest discomfort, palpitations, edema, orthopnea, syncopal events. RESPIRATORY: + Dyspnea, worse with exertion, cough, hemoptysis. No marked wheezing. GASTROINTESTINAL: + Decreased appetite. No nausea, vomiting or diarrhea, abdominal pain, melena, BRBPR. GENITOURINARY: No dysuria, frequency, urgency or retention. NEUROLOGICAL: No headache, dizziness, syncope, paralysis, ataxia, numbness or tingling in the extremities, focal weakness, change in bowel or bladder control, seizure. MUSCULOSKELETAL: + muscle, back pain, joint pain or stiffness. HEMATOLOGIC: No anemia. + Active concerns of bleeding with hemoptysis as noted. LYMPHATICS: No enlarged nodes. No history of splenectomy. PSYCHIATRIC: No history of depression or anxiety. ENDOCRINOLOGIC: No reports of sweating, cold or heat intolerance. No polyuria or polydipsia. ALLERGIES: No history of asthma, hives, eczema or rhinitis. Vital Signs Vital Signs Vital Signs: 03/15/25 19:45 03/15/25 19:48 03/15/25 19:48 Temperature 98.3 F Temperature Source Oral Pulse Rate Respiratory Rate 20 H Respiratory Effort Respiratory Depth Respiratory Pattern Blood Pressure 164/94 H Blood Pressure Mean 117 Pulse Ox 90 89 95 Oxygen Delivery Method Room Air Room Air Nasal Cannula Oxygen Flow Rate (L/min) 2 03/15/25 20:54 03/15/25 20:54 03/15/25 21:00 Temperature 98.2 F 98.2 F Temperature Source Oral Oral Pulse Rate 89 103 H Respiratory Rate 25 H 28 H Respiratory Effort Short of Breath Respiratory Depth Shallow Respiratory Pattern Tachypnea Blood Pressure 146/76 H 150/73 H Blood Pressure Mean 99 98 Pulse Ox 94 93 Oxygen Delivery Method Room Air Room Air Oxygen Flow Rate (L/min) 03/15/25 22:00 Temperature 98.5 F Temperature Source Oral Pulse Rate 91 Respiratory Rate 25 H Respiratory Effort Respiratory Depth Respiratory Pattern Blood Pressure 142/79 H Blood Pressure Mean 100 Pulse Ox 97 Oxygen Delivery Method Room Air Oxygen Flow Rate (L/min) Weight Weight: 100 lb Body Mass Index (BMI) 18.8 Physical Exam Narrative Physical Examination: General: Awake, alert, oriented x 3 and cooperative, seated upright in the ED bed, fatigued. Skin: Normal color, normal turgor, no icterus, no cyanosis. HEENT: AT/NC, EOMI, PERRLA, mildly dry MM, no carotid bruits or JVD noted. Lungs: Notably diminished, right greater than left, coarse, mildly increased respiratory rate but no distress, no significantly appreciated Rales or wheezing. Heart: Regular rate and rhythm; no gallop, rub audible. Abdomen: Soft, NTTP, ND, mildly hyperactive BS, no appreciated HSM. Extremities: No cyanosis, clubbing, or edema. Neurological: Patient awake, alert, oriented as noted, cognitive function intact; pupils equally reactive to light and accommodation, cranial nerves grossly normal, moving all 4 extremities, no focal deficits, strength mildly to moderately global decreased. Psychiatric: Affect appears fatigued otherwise normal, no acute evidence of depressive or anxiety feelings. Results Lab / Micro Data 03/15/25 20:50 03/15/25 20:50 Labs: Laboratory Results - last 24 hr 03/15/25 20:50: WBC 13.8 H, RBC 4.53, Hgb 14.0, Hct 41.5, MCV 91.6, MCH 30.9, MCHC 33.7, RDW Std Deviation 42.4, RDW Coeff of Kuldip 12.7, Plt Count 294, MPV 9.6, Immature Gran % (Auto) 0.400, Neut % (Auto) 77.8 H, Lymph % (Auto) 16.9 L, [place] % (Auto) 4.4, Eos % (Auto) 0.1, Baso % (Auto) 0.4, Absolute Neuts (auto) 10.7 H, Absolute Lymphs (auto) 2.32, Nucleated RBC % 0, PT 13.9, INR 1.0, APTT 31.5, Sodium 138, Potassium 4.1, Chloride 104, Carbon Dioxide 21.5, Anion Gap 13, BUN 20 H, Creatinine 0.73, Estim Creat Clear Calc 41.50 L, Est GFR (MDRD) Non-Af 84, BUN/Creatinine Ratio 27.0 H, Glucose 142 H, Calcium 9.6 Imaging Radiology Impression Chest X-Ray 03/15/25 21:05 IMPRESSION: Right mid and lower lung zone airspace opacities. Reading Location: [facility] Assessment & Plan Assessment/Plan (1) Multifocal pneumonia: (2) Cough with hemoptysis: PLAN: Plan The patient is a 80 y/o F w/ PMHx: COPD, Tobacco use, HTN, HLD, Diabetes mellitus type II, Hx SBO s/p prior bowel resection initially presented to the ED 03/14/2025 secondary to persistent cough with occasional hemoptysis, fatigue, subjective chills x 2 to 3 days with CTA obtained with no acute findings with concern for bronchitis discharged on oral doxycycline with some improvement who now re-presents to the [facility] ED on 03/15/25 as patient noted that since her discharge and return to home despite initially feeling improved she has had persistent ongoing fatigue, hemoptysis and dyspnea worse with exertion prompting ED return to be cautious. #1. Right-sided pneumonia, community-acquired with persistent cough with occasional hemoptysis: Will defer immediate repeat CTA is just performed with no acute concerning findings of note, will admit to [facility], currently not requiring any oxygen supplementation however if necessary would initiate an maintain on oxygen with wean as tolerated to room air, maintain on ATC duonebs, PRN albuterol, maintained on IV Rocephin and Azithromycin, HOB, IS parameters w/ pending sputum cultures, full respiratory viral panel and urine antigens. #2. History SBO: Patient with previous history of bowel obstruction status post bowel resection, no acute concerning symptoms upon current presentation. #3. Diabetes mellitus type II: Hold oral home regimen, ADA diet, accu checks w/ ISS. #4. Hypertension: Continue home regimen including losartan with hold parameters as needed, PRN hydralazine. #5. Hyperlipidemia: Will continue patient on statin therapy. #6. Tobacco Abuse: Encouraged cessation, inpatient consultation per RT, NR if desired. #7. DVT prophylaxis: SCDs. #8. CODE status: Patient does not have healthcare power of rapid extractor operator or living will in place but she notes her would be her medical decision-maker if necessary. Discussed CODE status at length including difference between FULL code, DNR-CCA and DNR-CC status. Following discussions about the differences in these status, requested Full Code status. Charges/Coding Visit Charges Inpatient E&M: 37559 Init Hosp L3
[2025-03-15 23:10] VITALS: BP 142/76; BP 143/76; PULSE 89; RESP 24; RESP 25; TEMP 37.1; O2SAT 92
--- OUTSIDE RECORDS SUMMARY | 2025-03-15 23:21 | XMS RPT_ITS | CCD ---
Author Organization [facility] Care Team Providers Care Application Infrastructure Engineer Name Role Phone SALONI BEATER WORKER HELPER - PATTI, ADELINA Reyes Primary Care Phys ician Saloni HOSE MENDER, HOSE MENDER-C Adelina Croft Primary Care Pr ovider Dr. [...] navailable JULIUS BENJAMIN MD Attending Unavaila ble SALONI BEATER WORKER HELPER - 3D TECHNOLOGIST, ADELINA Reyes Attending U navailable SALONI BEATER WORKER HELPER - 3D TECHNOLOGIST, ADELINA Reyes Primary Care U navailable SALONI BEATER WORKER HELPER - 3D TECHNOLOGIST, ADELINA Reyes Attending U navailable SALONI BEATER WORKER HELPER - 3D TECHNOLOGIST, ADELINA Reyes Primary Care U navailable SALONI BEATER WORKER HELPER - 3D TECHNOLOGIST, ADELINA Reyes Attending U navailable SALONI BEATER WORKER HELPER - 3D TECHNOLOGIST, ADELINA Reyes Primary Care U navailable SALONI BEATER WORKER HELPER - 3D TECHNOLOGIST, ADELINA Reyes Attending U navailable SALONI BEATER WORKER HELPER - 3D TECHNOLOGIST, ADELINA Reyes Primary Care U navailable SALONI BEATER WORKER HELPER - 3D TECHNOLOGIST, ADELINA Reyes Primary Care U navailable SALONI BEATER WORKER HELPER - 3D TECHNOLOGIST, ADELINA Reyes Attending U navailable KELLIE, BRADEN Shields Referring Unavailable SALONI, ADELINA CROFT [facility] Care Unavail able CALAWAY, BRADEN C Attending Unavailable SALONI, ADELINA CROFT [facility] Care Unavail able CALAWAY, BRADEN C Attending Unavailable SALONI, ADELINA ROBERTO [facility] Care Unavail able CALAWAY, BRADEN C Attending Unavailable SALONI, ADELINA CROFT [facility] Care Unavail able CALAWAY, BRADEN C Attending Unavailable SALONI, ADELINA ROBERTO [facility] Care Unavail able CALAWAY, BRDAEN C Admitting Unavailable CALAWAY, BRADEN C Attending Unavailable SALONI, ADELINA CROFT [facility] Care Unavail able SALONI, ADELINA CROFT [facility] Care Unavail able CALAWAY, BRADEN C Referring Unavailable SALONI, ADELINA CROFT [facility] Care Unavail able CALAWAY, BRADEN C Referring Unavailable SALONI, ADELINA ROBERTO [facility] Care Unavail able CALAWAY, BRADEN C Admitting Unavailable CALAWAY, BRADEN C Attending Unavailable SALONI, ADELINA CROFT Primary Care Unavail able SALONI, ADELINA ROBERTO Primary Care Unavail able CALAWAY, BRADEN C Admitting Unavailable CALAWAY, BRADEN C Attending Unavailable SALONI, ADELINA CROFT [facility] Care Unavail able CALAWAY, BRADEN C Attending Unavailable SALONI, ADELINA CROFT Primary Care Unavail able SALONI, ADELINA CROFT Primary Care Unavail able CALAWAY, BRADEN C Referring Unavailable SALONI, ADELINA CROFT Primary Care Unavail able SALONI MANDI - PATTI, ADELINA Reyes Attending U navailable SALONI BEATER WORKER HELPER - 3D TECHNOLOGIST, ADELINA Reyes Primary Care U navailable SALONI BEATER WORKER HELPER - 3D TECHNOLOGIST, ADELINA Reyes Attending U navailable SALONI BEATER WORKER HELPER - 3D TECHNOLOGIST, ADELINA Reyes Primary Care U navailable TYSON KNAPP MD Attending Unavail able SALONI BEATER WORKER HELPER - 3D TECHNOLOGIST, ADELINA Reyes [facility] HOSE MENDER-C, Adelina Croft Primary Care Physi gabbi Dr. Andrez Arias DO Emergency Department Physic aleksander Andrez Arias Attending Unavailable Young HOSE MENDER, Adelina Croft Primary [facility] [place] Unav ailable Medications Current Medications Medication Drug Class(es) Dates Sig (Normalized) Sig (Original) [id number] 200 actuat albuterol 0.09 mg/actuat metered dose inhaler (20 sources) beta2-Adrenergic Agonist Start: 08-23-2024 End: 02-19-2025 take 1 puff(s) by inhalation every four hours ProAir HFA MDI (90 mcg/inh) inhalation aerosol 1 puff(s), Inhalation, q4h, # 1 EA, 5 Refill(s), Pharmacy: [facility]/pharmacy #[id number], Chronic obstructive pulmonary disease [...] q4h, # 1 EA, 5 Refill(s), Pharmacy: [facility]/pharmacy #[id number], Chronic obstructive pulmonary disease [...] q4h, # 1 EA, 5 Refill(s), Pharmacy: [facility]/pharmacy #[id number], Chronic obstructive pulmonary disease (COPD), 156, cm, 05/23/23 10:02:00 EST, Height, kg, 05/23/23 10:02:00 EST, Dosing Weight Start Date: 05/23/23 Stop Date: 11/19/23 Status: Ordered Start: 11-13-2021 End: 05-10-2023 take 1 puff(s) by inhalation every four hours ProAir HFA MDI (90 mcg/inh) inhalation aerosol 1 puff(s), Inhalation, q4h, # 1 EA, 5 Refill(s), Pharmacy: [facility]/pharmacy #[id number], Chronic obstructive pulmonary disease (COPD), 156, cm, 11/11/22 10:37:00 EDT, Height, kg, 11/11/22 10:37:00 EDT, Dosing Weight Start Date: 11/11/22 Stop Date: 05/10/23 Status: Ordered Start: 11-03-2020 End: 06-01-2021 take 1 puff(s) by inhalation every four hours ProAir HFA MDI (90 mcg/inh) inhalation aerosol 1 puff(s), Inhalation, q4h, # 1 EA, 6 Refill(s), Pharmacy: [facility]/pharmacy #[id number], Chronic obstructive pulmonary disease (COPD), 156.2, cm, 11/03/20 13:54:00 EDT, Height, kg, 11/03/20 13:54:00 EDT, Dosing Weight Start Date: 11/03/20 Stop Date: 06/01/21 Status: Ordered Start: 11-03-2020 End: 06-01-2021 take 1 puff(s) by inhalation every four hours ProAir HFA MDI (90 mcg/inh) inhalation aerosol 1 puff(s), Inhalation, q4h, # 1 EA, 6 Refill(s), Pharmacy: [facility]/pharmacy #[id number], Chronic obstructive pulmonary disease [...] 0 Refill(s), 06/14/24 11:24:00 AM EST, Pharmacy: [facility]/pharmacy #[id number], Cellulitis of foot without [...] qmonth, # 4 cap(s), 1 Refill(s), Pharmacy: [facility]/pharmacy #[id number], Vitamin D deficiency, 156.5, [...] qmonth, # 4 cap(s), 1 Refill(s), Pharmacy: [facility]/pharmacy #3321, Vitamin D deficiency, 156, [...] qmonth, # 4 cap(s), 1 Refill(s), Pharmacy: [facility]/pharmacy #3321, Vitamin D deficiency, 156, [...] 2023 6:06pm take 1 capsule by mo [facility] every month cholecalciferol (Vitamin D-3) 50,000 [...] qDay, # 90 tab(s), 1 Refill(s), Pharmacy: [facility]/pharmacy #[id number], 156, cm, 05/23/23 10:02:00 [...] fill., # 9 mL, 1 Refill(s), Pharmacy: [facility]/pharmacy #[id number], DM type 2, goal [...] fill., # 9 mL, 1 Refill(s), Pharmacy: [facility]/pharmacy #[id number], DM type 2, goal [...] Refill(s), [id number], Hyperlipidemia LDL goal Start Date: 08/23/24 Status: Ordered Medication Dispense Status: Completed Quantity: 90.0 Unit: tab(s) Total Allowed Fills: 2 Fills Dispensed: 0 Indications: Hyperlipidemia, unspecified; Start: 05-23-2023 End: 05-26-2024 losartan 25 mg oral tablet D ose : 25 mg = 1 tab(s), Oral, qDay, # 90 tab(s), 1 Refill(s), [id number], Hyperlipidemia LDL goal Start Date: 11/28/23 Stop Date: 05/26/24 Status: Ordered Start: 11-11-2022 End: 05-10-2023 losartan 25 mg oral tablet D ose : 25 mg = 1 tab(s), Oral, qDay, # 90 tab(s), 1 Refill(s), [id number], Hyperlipidemia LDL goal Start Date: 11/11/22 Stop Date: 05/10/23 Status: Ordered Start: 11-03-2020 End: 11-07-2022 losartan 25 mg oral tablet D ose : 25 mg = 1 tab(s), Oral, qDay, # 90 tab(s), 1 Refill(s), [id number], Hyperlipidemia LDL goal Start Date: [...] BID, # 180 tab(s), 1 Refill(s), Pharmacy: [facility]/pharmacy #3321, 156.5, cm, 08/23/24 7:58:00 [...] qDay, # 90 tab(s), 1 Refill(s), Pharmacy: [facility]/pharmacy #[id number], DM type 2, goal HbA1c Start Date: 11/11/22 Status: Ordered Start: 05-11-2022 MetFORMIN (Eqv -Glucophage XR) 500 mg oral tablet, EXTENDED RELEASE Dose : 500 mg = 1 tab(s), Oral, qDay, # 90 tab(s), 2 Refill(s), Pharmacy: [facility]/pharmacy #[id number], 156, cm, 05/11/22 10:55:00 EST, Height, kg, 05/11/22 10:55:00 EST, Dosing Weight Start Date: 05/11/22 Status: Ordered Start: 11-03-2020 End: 02-09-2022 MetFORMIN (Eqv-Glucophage XR ) 500 mg oral tablet, EXTENDED RELEASE Dose : 500 mg = 1 tab(s), Oral, qDay, # 90 tab(s), 2 Refill(s), Pharmacy: [facility]/pharmacy #[id number], 156, cm, 11/13/21 14:14:00 [...] insulin, # 1 EA, 11 Refill(s), Pharmacy: [facility]/pharmacy #3321, Uncontrolled diabetes mellitus with [...] insulin, # 1 EA, 11 Refill(s), Pharmacy: [facility]/pharmacy #3321, Uncontrolled diabetes mellitus with [...] qHS, # 90 tab(s), 1 Refill(s), Pharmacy: [facility]/pharmacy #3321, 156.5, cm, 08/23/24 7:58:00 EST, Height, kg, 08/23/24 7:58:00 EST, Dosing Weight Start Date: 08/23/24 Status: Ordered Medication Dispense Status: Completed Quantity: 90.0 Unit: tab(s) Total Allowed Fills: 2 Fills Dispensed: 0 Start: 11-28-2023 simvastatin 40 mg oral tablet Dose : 40 mg = 1 tab(s), Oral, qHS, # 90 tab(s), 1 Refill(s), Pharmacy: [facility]/pharmacy #[id number], 156, cm, 11/28/23 8:56:00 EDT, Height, kg, 11/28/23 8:56:00 EDT, Dosing Weight Start Date: 11/28/23 Status: Ordered Start: 09-13-2019 End: 05-12-2022 simvastatin 40 mg oral table t Dose : 40 mg = 1 tab(s), Oral, qHS, # 90 tab(s), 1 Refill(s), Pharmacy: [facility]/pharmacy #[id number], 156, cm, 11/27/23 10:02:00 EST, Height, [...] Refill(s) Start Date: 08/23/23 Status: Ordered Vit C,K-Tg-Coddo-Lutein-Ze axan (Preservision Areds-2) 250-90-40-1 mg capsule (3 sources) Start: 01-13-2021 Vit C,A-Lh-Igcry-Lutei n-Zeaxan (Preservision Areds-2) 250-90-40-1 mg capsule Active [...] BID, # 14 tab(s), 0 Refill(s), Pharmacy: [facility]/pharmacy #[id number], Magnesium deficiency syndrome, 156, [...] 11-07-2023 11-07-2023 Episodic Other aftercare (2 sources) [facility] (current) use of insulin; Translations: [intermediate manager (current) use of insulin (Multi)] Onset: 11-03-2023 Episodic Other diseases of kidney and ureters (2 sources) Disorder of kidney and ureter, unspecified; Translations: [Disorder of kidney and ureter, unspecified] Onset: 05-05-2023 Episodic Unclassified (10 sources) Onset: 10-14-2023 10-14-2023 Results Test Name Value Interpretation Reference Range Facility Absolute lymphocyte countOrd ered By: Andrez Arias on 03-14-2025 Lymphocytes Auto (Unsp spec) [#/Vol] 3.83 10*3/uL 0.83-4.51 [facility] Absolute neutrophil countOrd ered By: Andrez Arias on 03-14-2025 Neutrophils (Bld) [#/Vol] 7.4 10*3/uL 2.0-7.7 [facility] Activated partial thrombopla stin time (aPTT) in platelet poor plasma by coagulation aOrdered By: Andrez Arias on 03-14-2025 aPTT Coag (PPP) [Time] 23.0 s Low 24.1-36.2 [facility] Anion gap in Serum or Plasma Ordered By: Andrez Arias on 03-14-2025 Anion gap [Moles/Vol] 12 mmol/L 5-15 [facility] Automated lymphocyte count a s percentage of total leukocytesOrdered By: Andrez Arias on 03-14-2025 Lymphocytes/100 WBC Auto (Unsp spec) 31.7 % 19-41 [facility] BUN/creatinine ratioOrdered By: Andrez Arias on 03-14-2025 Urea nitrogen/Creatinine [Mass ratio] 21.1 mg/mg High 10-20 [facility] Basic Metabolic Profile (BMP )on 03-14-2025 BUN/CRE 21.1 RATIO High 10-20 [facility] Comment on above: Performed By: #### L 300.4310, L100.0100, L503.6005, L500.2500, L300.3900 #### [facility] [address] [place], [address] Calcium [Mass/Vol] 9.1 mg/dL Normal 7.6-11.0 [facility] Comment on above: Performed By: #### L 300.4310, L100.0100, L503.6005, L500.2500, L300.3900 #### [facility] [address] [place], [address] Chloride [Moles/Vol] 107 mmol/L Normal 98-108 [facility] Comment on above: Performed By: #### L 300.4310, L100.0100, L503.6005, L500.2500, L300.3900 #### [facility] [address] [place], [address] CO2 [Moles/Vol] 21.3 mmol/L Normal 21.0-32.0 [facility] Comment on above: Performed By: #### L 300.4310, L100.0100, L503.6005, L500.2500, L300.3900 #### [facility] [address] [place], [address] Creatinine [Mass/Vol] 0.77 mg/dL Normal 0.70-1.20 [facility] Comment on above: Performed By: #### L 300.4310, L100.0100, L503.6005, L500.2500, L300.3900 #### [facility] [address] [place], [address] ECRCL 41.90 ml/min Low 50-250 [facility] Comment on above: Performed By: #### L 300.4310, L100.0100, L503.6005, L500.2500, L300.3900 #### [facility] [address] [place], [address] GAP 12 Normal 5-15 [facility] Comment on above: Performed By: #### L 300.4310, L100.0100, L503.6005, L500.2500, L300.3900 #### [facility] [address] [place], [address] GFR/1.73 sq M.predicted among non-blacks MDRD (S/P/Bld) [Vol rate/Area] 79 mL/min/{1.73_m2} Normal >60 [facility] Comment on above: Result Comment: mL/m in/1.73m2 CKD-EPI Creatinine Equation (2020) Performed By: #### L 300.4310, L100.0100, L503.6005, L500.2500, L300.3900 #### [facility] [address] [place], [address] Glucose [Mass/Vol] 98 mg/dL Normal 70-99 [facility] Comment on above: Performed By: #### L 300.4310, L100.0100, L503.6005, L500.2500, L300.3900 #### [facility] [address] [place], [address] Potassium [Moles/Vol] 4.0 mmol/L Normal 3.3-5.1 [facility] Comment on above: Performed By: #### L 300.4310, L100.0100, L503.6005, L500.2500, L300.3900 #### [facility] [address] [place], [address] Sodium [Moles/Vol] 140 mmol/L Normal 133-145 [facility] Comment on above: Performed By: #### L 300.4310, L100.0100, L503.6005, L500.2500, L300.3900 #### [facility] [address] [place], [address] Urea nitrogen [Mass/Vol] 16 mg/dL Normal 4-19 [facility] Comment on above: Performed By: #### L 300.4310, L100.0100, L503.6005, L500.2500, L300.3900 #### [facility] [address] [place], [address] Basophil percentageOrdered B y: Andrez Arias on 03-14-2024 Basophils/100 WBC (Bld) 0.4 % 0-1 [facility] CBC W/Diff, Automatedon 02-25-2024 Absolute Lymph 3.83 X10 3/uL Normal 0.83-4.51 [facility] Comment on above: Performed By: #### L 300.4310, L100.0100, L503.6005, L500.2500, L300.3900 #### [facility] [address] [place], [address] Absolute Neut 7.4 X10 3/uL Normal 2.0-7.7 [facility] Comment on above: Performed By: #### L 300.4310, L100.0100, L503.6005, L500.2500, L300.3900 #### [facility] [address] [place], [address] Basophils/100 WBC (Bld) 0.4 % Normal 0-1 [facility] Comment on above: Performed By: #### L 300.4310, L100.0100, L503.6005, L500.2500, L300.3900 #### [facility] [address] [place], [address] Eosinophils/100 WBC (Bld) 0.2 % Normal 0-5 [facility] Comment on above: Performed By: #### L 300.4310, L100.0100, L503.6005, L500.2500, L300.3900 #### [facility] [address] [place], [address] Erythrocyte distribution width (RBC) [Ratio] 12.8 % Normal 11.6-14.6 [facility] Comment on above: Performed By: #### L 300.4310, L100.0100, L503.6005, L500.2500, L300.3900 #### [facility] [address] [place], [address] Hematocrit (Bld) [Volume fraction] 43.9 % Normal 37-47 [facility] Comment on above: Performed By: #### L 300.4310, L100.0100, L503.6005, L500.2500, L300.3900 #### [facility] [address] [place], [address] Hemoglobin (Bld) [Mass/Vol] 14.9 g/dL Normal 12.0-15.0 [facility] Comment on above: Performed By: #### L 300.4310, L100.0100, L503.6005, L500.2500, L300.3900 #### [facility] [address] [place], [address] IG% 0.300 Normal 0.0-0.9 [facility] Comment on above: Result Comment: IG% - Immature Granulocytes (promyelocytes, myelocytes and metamyelocytes) > 1% indicates that a LEFT SHIFT is Present. Performed By: #### L 300.4310, L100.0100, L503.6005, L500.2500, L300.3900 #### [facility] [address] [place], [address] Lymphocytes/100 WBC (Bld) 31.7 % Normal 19-41 [facility] Comment on above: Performed By: #### L 300.4310, L100.0100, L503.6005, L500.2500, L300.3900 #### [facility] [address] [place], [address] MCH (RBC) [Entitic mass] 31.0 pg Normal 27.0-32.0 [facility] Comment on above: Performed By: #### L 300.4310, L100.0100, L503.6005, L500.2500, L300.3900 #### [facility] [address] [place], [address] MCHC (RBC) [Mass/Vol] 33.9 g/dL Normal 32-36 [facility] Comment on above: Performed By: #### L 300.4310, L100.0100, L503.6005, L500.2500, L300.3900 #### [facility] [address] [place], [address] MCV (RBC) [Entitic vol] 91.3 fL Normal 81-99 [facility] Comment on above: Performed By: #### L 300.4310, L100.0100, L503.6005, L500.2500, L300.3900 #### [facility] [address] [place], [address] Monocytes/100 WBC (Bld) 5.9 % Normal 0-10 [facility] Comment on above: Performed By: #### L 300.4310, L100.0100, L503.6005, L500.2500, L300.3900 #### [facility] [address] [place], [address] Neutrophils/100 WBC (Bld) 61.5 % Normal 47-70 [facility] Comment on above: Performed By: #### L 300.4310, L100.0100, L503.6005, L500.2500, L300.3900 #### [facility] [address] [place], [address] Nucleated RBC (Bld) [#/Vol] 0 10*3/uL Normal 0-5 [facility] Comment on above: Performed By: #### L 300.4310, L100.0100, L503.6005, L500.2500, L300.3900 #### [facility] [address] [place], [address] Platelet mean volume (Bld) [Entitic vol] 9.3 fL Normal 6.2-12.0 [facility] Comment on above: Performed By: #### L 300.4310, L100.0100, L503.6005, L500.2500, L300.3900 #### [facility] [address] [place], [address] Platelets (Bld) [#/Vol] 273 10*3/uL Normal 150-450 [facility] Comment on above: Performed By: #### L 300.4310, L100.0100, L503.6005, L500.2500, L300.3900 #### [facility] [address] [place], [address] RBC (Bld) [#/Vol] 4.81 10*6/uL Normal 4.2-5.4 [facility] Comment on above: Performed By: #### L 300.4310, L100.0100, L503.6005, L500.2500, L300.3900 #### [facility] [address] [place], [address] RDW SD 42.8 fl Normal 35.1-43.9 [facility] Comment on above: Performed By: #### L 300.4310, L100.0100, L503.6005, L500.2500, L300.3900 #### [facility] [address] [place], [address] WBC (Bld) [#/Vol] 12.1 10*3/uL High 4.4-11.0 [facility] Comment on above: Performed By: #### L 300.4310, L100.0100, L503.6005, L500.2500, L300.3900 #### [facility] [address] [place], [address] CTA Chest W/WO Contraston CTA Chest W/WO Contrast [facility] Imaging Services [address] [place] [address] CTA Chest W/WO Contrast MR#: [id number] Acct: [id number] Name: MAYTE SWEET Rep #: [id number] : 1945 F 80 From: Leeroy cooper MD PCP: Adelina Guallpa, HOSE MENDER-C Status: [facility] Study: CTA Chest W/WO Contrast Date of Exam: 03/14/25 Exam# [id number] Ordering Dr: Andrez Arias DO PROCEDURE: CTA [...] peribronchial interstitial thickening, probably bronchitis. Reading Location: [place] [address] CC: HOSE MENDERPremaC Adelina Guallpa; Andrez Arias DO Dietary Server: Signed Normal [facility] Carbon dioxide, total [Moles /volume] in Central venous bloodOrdered By: Andrez Arias on 03-14-2025 CO2 [Moles/Vol] 21.3 mmol/L 21.0-32.0 [facility] Chloride assayOrdered By: Yudith Arias on 03-14-2025 Chloride [Moles/Vol] 107 mmol/L 98-108 [facility] Emergency Department Summary on 03-14-2025 Emergency Department Summary [facility] Medical Records Department [address] [place] [address] Emergency Department Summary 03/14/25 MR#: [id number] Acct: [id number] Name: MAYTE SWEET Rep #: [id number] : 1945 80 From: Andrez Arias DO [...] they recommended she come in for evaluation. [facility] Medical History Wears glasses Easy bruising Dietary [...] Negative f (more content not included)... Normal [facility] Eosinophil percentageOrdered By: Andrez Arias on 03-14-2025 Eosinophils/100 WBC (Bld) 0.2 % 0-5 [facility] Erythrocyte distribution wid th ratioOrdered By: Andrez Arias on 03-14-2025 Erythrocyte distribution width (RBC) [Ratio] 12.8 % 11.6-14.6 [facility] Erythrocyte distribution wid th standard deviationOrdered By: Andrez Arias on 03-14-2025 Erythrocyte distribution width (RBC) [Ratio] 42.8 fl 35.1-43.9 [facility] Glomerular filtration rate ( GFR) estimation/1.73 sq m using serum, plasma, or whole bOrdered By: Andrez Arias on 03-14-2025 GFR/1.73 sq M.predicted among non-blacks MDRD (S/P/Bld) [Vol rate/Area] 79 mL/min/{1.73_m2} >60 [facility] Comment on above: mL/min/1.73m2 CKD-EP I Creatinine Equation (2020) Hematocrit Auto (Bld) [Volum e fraction]Ordered By: Andrez Arias on 03-14-2025 Hematocrit (Bld) [Volume fraction] 43.9 % 37-47 [facility] Hemoglobin measurementOrdere d By: Andrez Arias on 03-14-2025 Hemoglobin (Bld) [Mass/Vol] 14.9 g/dL 12.0-15.0 [facility] Immature granulocytes/100 WB C Auto (Bld)Ordered By: Andrez Arias on 03-14-2025 Immature granulocytes/100 WBC (Bld) 0.300 % 0.0-0.9 [facility] Comment on above: IG% - Immature Granu locytes (promyelocytes, myelocytes and metamyelocytes) > 1% indicates that a LEFT SHIFT is Present. Influenza virus A and B and SARS-CoV-2 (COVID-19) and Respiratory syncytial virus RNAOrdered By: Andrez Arias on 03-14-2025 SARS-CoV-2 (COVID-19) RNA DONAVAN+probe Ql (Unsp spec) [facility] International normalized rat io (INR) calculationOrdered By: Andrez Arias on 03-14-2025 INR Coag (Bld) [Relative time] 1.0 {INR} [facility] Lactic Acidon 03-14-2025 Lactate [Moles/Vol] 1.4 mmol/L Normal 0.0-2.0 [facility] Comment on above: Order Comment: Y Performed By: #### L 300.4310, L100.0100, L503.6005, L500.2500, L300.3900 #### [facility] [address] [facility] [address] [place], [place], [id number] Lactic acid measurementOrder ed By: Andrez Arias on 03-14-2025 Lactate [Moles/Vol] 1.4 mmol/L 0.0-2.0 [facility] M100.678on 03-14-2025 M100.678 SARS-CoV-2 (COVID 19) Negative INFLUENZA A Negative INFLUENZA B Negative RSV PCR Negative Normal [facility] Comment on above: Performed By: #### M 100.678 #### [facility] [address] [facility] [place], [address] MCV (mean corpuscular volume ) determinationOrdered By: Andrez Arias on 03-14-2025 MCV (RBC) [Entitic vol] 91.3 fL 81-99 [facility] Mean corpuscular hemoglobin (MCH) determinationOrdered By: Andrez Arias on 03-14-2025 MCH (RBC) [Entitic mass] 31.0 pg 27.0-32.0 [facility] Mean corpuscular hemoglobin concentration (MCHC) determinationOrdered By: Andrez Arias on 03-14-2025 MCHC (RBC) [Mass/Vol] 33.9 g/dL 32-36 [facility] Mean platelet volume determi nationOrdered By: Andrez Arias on 03-14-2025 Platelet mean volume (Bld) [Entitic vol] 9.3 fL 6.2-12.0 [facility] Monocyte percentageOrdered B y: Andrez Arias on 03-14-2025 Monocytes/100 WBC (Bld) 5.9 % 0-10 [facility] Neutrophil percentageOrdered By: Andrez Arias on 03-14-2025 Neutrophils/100 WBC (Bld) 61.5 % 47-70 [facility] Nucleated red blood cell per centageOrdered By: Andrez Arias on 03-14-2025 Nucleated RBC/100 WBC (Bld) [Ratio] 0 % 0-5 [facility] Partial Thromboplast Timeon 03-14-2025 aPTT Coag (Bld) [Time] 23.0 s Low 24.1-36.2 [facility] Comment on above: Performed By: #### L 300.4310, L100.0100, L503.6005, L500.2500, L300.3900 #### [facility] [address] [place], [address] Platelet countOrdered By: Yudith Arias on 03-14-2025 Platelets (Bld) [#/Vol] 273 10*3/uL 150-450 [facility] Potassium measurement (mass/ volume)Ordered By: Andrez Arias on 03-14-2025 Potassium (Unsp spec) [Mass/Vol] 4.0 mmol/L 3.3-5.1 [facility] Prothrombin Time w/INRon INR Coag (PPP) [Relative time] 1.0 {INR} Normal [facility] Comment on above: Performed By: #### L 300.4310, L100.0100, L503.6005, L500.2500, L300.3900 #### [facility] [address] [place], [address] PT Coag (PPP) [Time] 13.4 s Normal 11.7-14.9 [facility] Comment on above: Performed By: #### L 300.4310, L100.0100, L503.6005, L500.2500, L300.3900 #### [facility] [address] [place], [place], [id number] [phone] Prothrombin timeOrdered By: Andrez Arias on 03-14-2025 PT Coag (PPP) [Time] 13.4 s 11.7-14.9 [facility] RBC Auto (Bld) [#/Vol]Ordere d By: Andrez Arias on 03-14-2025 RBC (Bld) [#/Vol] 4.81 10*6/uL 4.2-5.4 [facility] Serum creatinine measurement (mass/volume)Ordered By: Andrez Arias on 03-14-2025 Creatinine [Mass/Vol] 0.77 mg/dL 0.70-1.20 [facility] Serum glucose measurement (m ass/volume)Ordered By: Andrez Arias on 03-14-2025 Glucose [Mass/Vol] 98 mg/dL 70-99 [facility] Serum or plasma calcium delvis urement (mass/volume)Ordered By: Anderz Arias on 03-14-2025 Calcium [Mass/Vol] 9.1 mg/dL 7.6-11.0 [facility] Serum or plasma urea nitroge n measurement (mass/volume)Ordered By: Andrez Arias on 03-14-2025 Urea nitrogen [Mass/Vol] 16 mg/dL 4-19 [facility] Sodium levelOrdered By: Marcelino Arias on 03-14-2025 Sodium [Moles/Vol] 140 mmol/L 133-145 [facility] White blood cell (WBC) count Ordered By: Andrez Arias on 03-14-2025 WBC (Bld) [#/Vol] 12.1 10*3/uL High 4.4-11.0 [facility] .Auto Diffon 02-12-2025 Basophil, Absolute 0.0 10 3/mcL Normal 0.0-0.3 [facility] Comment on above: Performed By: #### G FR, ADIFF, LIPID, MG, A1C, CBC, VIDH, CMP, ANEU #### [address] [address] #### PTH #### [address] [address] Basophils/100 WBC (Bld) 0.4 % Normal 0.0-2.5 [facility] Comment on above: Performed By: #### G FR, ADIFF, LIPID, MG, A1C, CBC, VIDH, CMP, ANEU #### [address] [address] #### PTH #### [address] [address] Eosinophil, Absolute 0.0 10 3/mcL Normal 0.0-0.7 [facility] Comment on above: Performed By: #### G FR, ADIFF, LIPID, MG, A1C, CBC, VIDH, CMP, ANEU #### [address] [address] #### PTH #### [address] [address] Eosinophils/100 WBC (Bld) 0.1 % Normal 0.0-6.0 [facility] Comment on above: Performed By: #### G FR, ADIFF, LIPID, MG, A1C, CBC, VIDH, CMP, ANEU #### [address] [address] #### PTH #### [address] [address] Lymphocyte, Absolute 3.0 10 3/mcL Normal 0.9-4.3 [facility] Comment on above: Performed By: #### G FR, ADIFF, LIPID, MG, A1C, CBC, VIDH, CMP, ANEU #### [address] [address] #### PTH #### [address] [address] Lymphocytes/100 WBC (Bld) 25.4 % Normal 20.0-40.0 [facility] Comment on above: Performed By: #### G FR, ADIFF, LIPID, MG, A1C, CBC, VIDH, CMP, ANEU #### [address] [address] #### PTH #### [address] [address] Monocyte, Absolute 0.6 10 3/mcL Normal 0.1-1.4 [facility] Comment on above: Performed By: #### G FR, ADIFF, LIPID, MG, A1C, CBC, VIDH, CMP, ANEU #### [address] [address] #### PTH #### [address] [address] Monocytes/100 WBC (Bld) 5.2 % Normal 2.0-13.[address] [facility] Comment on above: Performed By: #### G FR, ADIFF, LIPID, MG, A1C, CBC, VIDH, CMP, ANEU #### [address] [address] #### PTH #### [address] [address] Neutrophils/100 WBC (Bld) 68.9 % Normal 50.0-75.0 [facility] Comment on above: Performed By: #### G FR, ADIFF, LIPID, MG, A1C, CBC, VIDH, CMP, ANEU #### [place] [address] #### PTH #### [address] [address] .GFRon 02-12-2025 Estimated Glomerular Filtration Rate 70 ml/min/1.73sqm Normal [facility] Comment on above: Result Comment: Stages [...] MG, A1C, CBC, VIDH, CMP, ANEU #### [place] [address] #### PTH #### [place] [id number] .NEUABSon 02-12-2025 Neutrophil, Absolute 8.0 10 3/mcL Normal 2.3-8.1 [facility] Comment on above: Performed By: #### G FR, ADIFF, LIPID, MG, A1C, CBC, VIDH, CMP, ANEU #### [address] [address] #### PTH #### [place] [address] A1Con 02-12-2025 Glucose [Mass/Vol] 148 mg/dL Normal [facility] Comment on above: Result Comment: Kelly mated Average Glucose calculated by equation ((28.7xA1C)-46.7) Estimated average glucose (eAG) is a calculated value from Hemoglobin A1C and is pharmacy sales representative of the average blood glucose level in the last 2-3 month period. Normal range: less than 114 mg/dL Performed By: #### G FR, ADIFF, LIPID, MG, A1C, CBC, VIDH, CMP, ANEU #### [place] [address] #### PTH #### [place] [address] HbA1c (Bld) [Mass fraction] 6.8 % High 4.3-6.4 [facility] Comment on above: Performed By: #### G FR, ADIFF, LIPID, MG, A1C, CBC, VIDH, CMP, ANEU #### [place] [address] #### PTH #### [place] [address] CBCon 02-12-2025 Erythrocyte distribution width (RBC) [Ratio] 13.4 % Normal 11.5-15.5 [facility] Comment on above: Performed By: #### G FR, ADIFF, LIPID, MG, A1C, CBC, VIDH, CMP, ANEU #### [place] [address] #### PTH #### [place] [address] Hematocrit (Bld) [Volume fraction] 47.4 % High 34.0-46.0 [facility] Comment on above: Performed By: #### G FR, ADIFF, LIPID, MG, A1C, CBC, VIDH, CMP, ANEU #### [place] [address] #### PTH #### [place] [address] Hgb 16.0 G/dL Normal 12.0-16.0 [facility] Comment on above: Performed By: #### G FR, ADIFF, LIPID, MG, A1C, CBC, VIDH, CMP, ANEU #### [place] [address] #### PTH #### [place] [address] MCH (RBC) [Entitic mass] 30.8 pg Normal 27.0-33.0 [facility] Comment on above: Performed By: #### G FR, ADIFF, LIPID, MG, A1C, CBC, VIDH, CMP, ANEU #### [place] [address] #### PTH #### [place] [address] MCHC 33.8 G/dL Normal 32.0-36.0 [facility] Comment on above: Performed By: #### G FR, ADIFF, LIPID, MG, A1C, CBC, VIDH, CMP, ANEU #### [place] [address] #### PTH #### [place] [address] MCV (RBC) [Entitic vol] 91.0 fL Normal 80.0-99.[address] [facility] Comment on above: Performed By: #### G FR, ADIFF, LIPID, MG, A1C, CBC, VIDH, CMP, ANEU #### [place] [address] #### PTH #### [place] [address] Platelet 328 10 3/mcL Normal 150-450 [facility] Comment on above: Performed By: #### G FR, ADIFF, LIPID, MG, A1C, CBC, VIDH, CMP, ANEU #### [place] [address] #### PTH #### [place] [address] Platelet mean volume (Bld) [Entitic vol] 8.0 fL Normal 6.6-10.5 [facility] Comment on above: Performed By: #### G FR, ADIFF, LIPID, MG, A1C, CBC, VIDH, CMP, ANEU #### [place] [address] #### PTH #### [place] [address] RBC 5.21 10 6/mcL Normal 4.10-5.30 [facility] Comment on above: Performed By: #### G FR, ADIFF, LIPID, MG, A1C, CBC, VIDH, CMP, ANEU #### [address] [address] #### PTH #### [address] [address] WBC 11.7 10 3/mcL High 4.5-10.8 [facility] Comment on above: Performed By: #### G FR, ADIFF, LIPID, MG, A1C, CBC, VIDH, CMP, ANEU #### [place] [address] #### PTH #### [address] [address] CMPon 02-12-2025 Albumin Level 4.0 G/dL Normal 3.4-4.8 [facility] Comment on above: Performed By: #### G FR, ADIFF, LIPID, MG, A1C, CBC, VIDH, CMP, ANEU #### [place] [address] #### PTH #### [place] [address] Albumin/Globulin [Mass ratio] 1.0 {ratio} Low 1.1-2.5 [facility] Comment on above: Performed By: #### G FR, ADIFF, LIPID, MG, A1C, CBC, VIDH, CMP, ANEU #### [address] [address] #### PTH #### [address] [address] ALP [Catalytic activity/Vol] 61 U/L Normal 40-135 [facility] Comment on above: Performed By: #### G FR, ADIFF, LIPID, MG, A1C, CBC, VIDH, CMP, ANEU #### [place] [address] #### PTH #### [address] [address] ALT [Catalytic activity/Vol] 30 U/L Normal 14-59 [facility] Comment on above: Performed By: #### G FR, ADIFF, LIPID, MG, A1C, CBC, VIDH, CMP, ANEU #### [address] [address] #### PTH #### [address] [address] AST [Catalytic activity/Vol] 19 U/L Normal 10-40 [facility] Comment on above: Performed By: #### G FR, ADIFF, LIPID, MG, A1C, CBC, VIDH, CMP, ANEU #### [place] [address] #### PTH #### [place] [address] Bili Total 0.6 mg/dL Normal 0.2-1.0 [facility] Comment on above: Result Comment: Use of this assay is not recommended for patients undergoing treatment with eltrombopag due to the potential for falsely elevated results. Performed By: #### G FR, ADIFF, LIPID, MG, A1C, CBC, VIDH, CMP, ANEU #### [place] [address] #### PTH #### [place] [address] BUN/Creatinine Ratio 21 ratio Normal 7-27 [facility] Comment on above: Performed By: #### G FR, ADIFF, LIPID, MG, A1C, CBC, VIDH, CMP, ANEU #### [place] [address] #### PTH #### [place] [address] Calcium [Mass/Vol] 9.9 mg/dL Normal 8.4-10.2 [facility] Comment on above: Performed By: #### G FR, ADIFF, LIPID, MG, A1C, CBC, VIDH, CMP, ANEU #### [place] [address] #### PTH #### [place] [address] Chloride [Moles/Vol] 102 mmol/L Normal 98-107 [facility] Comment on above: Performed By: #### G FR, ADIFF, LIPID, MG, A1C, CBC, VIDH, CMP, ANEU #### [address] [address] #### PTH #### [address] [address] CO2 [Moles/Vol] 30 mmol/L Normal 23-31 [facility] Comment on above: Performed By: #### G FR, ADIFF, LIPID, MG, A1C, CBC, VIDH, CMP, ANEU #### [address] [address] #### PTH #### [place] [address] Creatinine [Mass/Vol] 0.86 mg/dL Normal 0.51-0.95 [facility] Comment on above: Performed By: #### G FR, ADIFF, LIPID, MG, A1C, CBC, VIDH, CMP, ANEU #### [place] [address] #### PTH #### [place] [address] Electrolyte Balance 6.0 mEq/L Normal 4.0-15.0 [facility] Comment on above: Performed By: #### G FR, ADIFF, LIPID, MG, A1C, CBC, VIDH, CMP, ANEU #### [address] [address] #### PTH #### [place] [address] Globulin 4.0 G/dL Normal 2.7-4.4 [facility] Comment on above: Performed By: #### G FR, ADIFF, LIPID, MG, A1C, CBC, VIDH, CMP, ANEU #### [address] [address] #### PTH #### [address] [address] Glucose [Mass/Vol] 133 mg/dL High 83-110 [facility] Comment on above: Performed By: #### G FR, ADIFF, LIPID, MG, A1C, CBC, VIDH, CMP, ANEU #### [address] [address] #### PTH #### [address] [address] Potassium [Moles/Vol] 5.2 mmol/L High 3.5-5.1 [facility] Comment on above: Performed By: #### G FR, ADIFF, LIPID, MG, A1C, CBC, VIDH, CMP, ANEU #### [address] [address] #### PTH #### [address] [address] Sodium [Moles/Vol] 138 mmol/L Normal 136-145 [facility] Comment on above: Performed By: #### G FR, ADIFF, LIPID, MG, A1C, CBC, VIDH, CMP, ANEU #### [place] [address] #### PTH #### [address] [address] Total Protein 8.0 G/dL Normal 6.4-8.2 [facility] Comment on above: Performed By: #### G FR, ADIFF, LIPID, MG, A1C, CBC, VIDH, CMP, ANEU #### [address] [address] #### PTH #### [place] [address] Urea nitrogen [Mass/Vol] 18 mg/dL Normal 7-18 [facility] Comment on above: Performed By: #### G FR, ADIFF, LIPID, MG, A1C, CBC, VIDH, CMP, ANEU #### [place] [address] #### PTH #### [address] [address] LABORATORYOrdered By: SYSTEM SYSTEM on 02-12-2025 25-hydroxyvitamin [...] calculated value from Hemoglobin A1C and is pharmacy sales representative of the average blood glucose [...] 02-12-2025 Cholesterol [Mass/Vol] 103 mg/dL Normal 0-200 [facility] Comment on above: Result Comment: Chol esterol Reference Interval: Less than 200 Desirable 200-239 Borderline high risk 240 and above High risk Performed By: #### G FR, ADIFF, LIPID, MG, A1C, CBC, VIDH, CMP, ANEU #### [address] [address] #### PTH #### [address] [address] Cholesterol in HDL [Mass/Vol] 37 mg/dL Low 40-60 [facility] Comment on above: Performed By: #### G FR, ADIFF, LIPID, MG, A1C, CBC, VIDH, CMP, ANEU #### [address] [address] #### PTH #### [address] [address] Cholesterol in LDL [Mass/Vol] 45 mg/dL Normal 0-130 [facility] Comment on above: Performed By: #### G FR, ADIFF, LIPID, MG, A1C, CBC, VIDH, CMP, ANEU #### [address] [address] #### PTH #### [address] [address] Triglyceride [Mass/Vol] 105 mg/dL Normal 0-[address] [facility] Comment on above: Result Comment: Trig lyceride Reference Interval: Less than 150 Normal 150-199 Borderline high risk 200-499 High risk 500 or higher Very high risk Performed By: #### G FR, ADIFF, LIPID, MG, A1C, CBC, VIDH, CMP, ANEU #### [address] [address] #### PTH #### [address] [address] MALBRon 02-12-2025 U Creatinine 19.5 mg/dL Normal [facility] Comment on above: Performed By: #### M ALBR #### [address] [address] U Microalb 35.9 mg/L Normal [facility] Comment on above: Performed By: #### M ALBR #### [address] [address] U Ratio Alb/Cre 184 mg/G High 0-30 [facility] Comment on above: Performed By: #### M ALBR #### [address] [address] MGon 02-12-2025 Magnesium [Mass/Vol] 1.5 mg/dL Low 1.8-2.4 [facility] Comment on above: Performed By: #### G FR, ADIFF, LIPID, MG, A1C, CBC, VIDH, CMP, ANEU #### [address] [address] #### PTH #### [address] [address] PTHon 02-12-2025 PTH, Intact 14.9 pg/mL Low 18.5-88.0 [facility] Comment on above: Performed By: #### G FR, ADIFF, LIPID, MG, A1C, CBC, VIDH, CMP, ANEU #### [address] [address] #### PTH #### [place] [address] VIDHon 02-12-2025 Vit. D 25-Hydroxy 45.1 ng/mL Normal [facility] Comment on above: Result Comment: Inte rpretive Values Based on Total 25(OH) Vitamin D: Deficient <20 ng/mL Insufficient 20 - <30 ng/mL Sufficient 30-100 ng/mL Performed By: #### G FR, ADIFF, LIPID, MG, A1C, CBC, VIDH, CMP, ANEU #### [address] [address] #### PTH #### [address] [address] .GFRon 07-27-2024 GFR 72 ml/min/1.73sqm [facility] Comment on above: Result Comment: GFR [...] MG, A1C, CBC, VIDH, CMP, ANEU #### [address] [address] #### PTH #### [address] [address] GFR Non- 59 ml/min/1.73sqm [facility] Comment on above: Result Comment: GFR [...] MG, A1C, CBC, VIDH, CMP, ANEU #### [address] [address] #### PTH #### [address] [address] CMPon 07-27-2024 Electrolyte Balance 8.0 mEq/L Normal 4.0-15.0 [facility] Comment on above: Performed By: #### G FR, ADIFF, LIPID, MG, A1C, CBC, VIDH, CMP, ANEU #### [address] [address] #### PTH #### [place] [address] Albumin Level 4.2 G/dL Normal 3.4-4.8 [facility] Comment on above: Performed By: #### G FR, ADIFF, LIPID, MG, A1C, CBC, VIDH, CMP, ANEU #### [address] [address] #### PTH #### [place] [address] Albumin/Globulin [Mass ratio] 1.1 {ratio} Normal 1.1-2.5 [facility] Comment on above: Performed By: #### G FR, ADIFF, LIPID, MG, A1C, CBC, VIDH, CMP, ANEU #### [address] [address] #### PTH #### [address] [address] ALP [Catalytic activity/Vol] 63 U/L Normal 40-135 [facility] Comment on above: Performed By: #### G FR, ADIFF, LIPID, MG, A1C, CBC, VIDH, CMP, ANEU #### [address] [address] #### PTH #### [place] [address] ALT [Catalytic activity/Vol] 24 U/L Normal 14-59 [facility] Comment on above: Performed By: #### G FR, ADIFF, LIPID, MG, A1C, CBC, VIDH, CMP, ANEU #### [address] [address] #### PTH #### [address] [address] AST [Catalytic activity/Vol] 19 U/L Normal 10-40 [facility] Comment on above: Performed By: #### G FR, ADIFF, LIPID, MG, A1C, CBC, VIDH, CMP, ANEU #### [place] [address] #### PTH #### [address] [address] Bili Total 0.4 mg/dL Normal 0.2-1.0 [facility] Comment on above: Result Comment: Use of this assay is not recommended for patients undergoing treatment with eltrombopag due to the potential for falsely elevated results. Performed By: #### G FR, ADIFF, LIPID, MG, A1C, CBC, VIDH, CMP, ANEU #### [place] [address] #### PTH #### [address] [address] BUN/Creatinine Ratio 21 ratio Normal 7-27 [facility] Comment on above: Performed By: #### G FR, ADIFF, LIPID, MG, A1C, CBC, VIDH, CMP, ANEU #### [address] [address] #### PTH #### [address] [address] Calcium [Mass/Vol] 9.5 mg/dL Normal 8.4-10.2 [facility] Comment on above: Performed By: #### G FR, ADIFF, LIPID, MG, A1C, CBC, VIDH, CMP, ANEU #### [place] [address] #### PTH #### [address] [address] Chloride [Moles/Vol] 100 mmol/L Normal 98-107 [facility] Comment on above: Performed By: #### G FR, ADIFF, LIPID, MG, A1C, CBC, VIDH, CMP, ANEU #### [address] [address] #### PTH #### [address] [address] CO2 [Moles/Vol] 30 mmol/L Normal 23-31 [facility] Comment on above: Performed By: #### G FR, ADIFF, LIPID, MG, A1C, CBC, VIDH, CMP, ANEU #### [address] [address] #### PTH #### [address] [address] Creatinine [Mass/Vol] 0.92 mg/dL Normal 0.55-1.02 [facility] Comment on above: Result Comment: Test ing performed on Siemens Dimension EXL analyzer using a modified kinetic Елена technique. Performed By: #### G FR, ADIFF, LIPID, MG, A1C, CBC, VIDH, CMP, ANEU #### [address] [address] #### PTH #### [address] [address] Globulin 3.8 G/dL Normal [facility] Comment on above: Performed By: #### G FR, ADIFF, LIPID, MG, A1C, CBC, VIDH, CMP, ANEU #### [address] [address] #### PTH #### [address] [address] Glucose [Mass/Vol] 85 mg/dL Normal 83-110 [facility] Comment on above: Performed By: #### G FR, ADIFF, LIPID, MG, A1C, CBC, VIDH, CMP, ANEU #### [address] [address] #### PTH #### [address] [address] Potassium [Moles/Vol] 4.5 mmol/L Normal 3.5-5.1 [facility] Comment on above: Performed By: #### G FR, ADIFF, LIPID, MG, A1C, CBC, VIDH, CMP, ANEU #### [address] [address] #### PTH #### [address] [address] Sodium [Moles/Vol] 138 mmol/L Normal 136-145 [facility] Comment on above: Performed By: #### G FR, ADIFF, LIPID, MG, A1C, CBC, VIDH, CMP, ANEU #### [address] [address] #### PTH #### [address] [address] Total Protein 8.0 G/dL Normal 6.4-8.2 [facility] Comment on above: Performed By: #### G FR, ADIFF, LIPID, MG, A1C, CBC, VIDH, CMP, ANEU #### [address] [address] #### PTH #### [address] [address] Urea nitrogen [Mass/Vol] 19 mg/dL High 7-18 [facility] Comment on above: Performed By: #### G FR, ADIFF, LIPID, MG, A1C, CBC, VIDH, CMP, ANEU #### [address] [address] #### PTH #### [address] [address] LIPIDon 07-27-2024 Cholesterol [Mass/Vol] 118 mg/dL Normal 0-200 [facility] Comment on above: Result Comment: Chol esterol Reference Interval: Less than 200 Desirable 200-239 Borderline high risk 240 and above High risk Performed By: #### G FR, ADIFF, LIPID, MG, A1C, CBC, VIDH, CMP, ANEU #### [address] [address] #### PTH #### [address] [address] Cholesterol in HDL [Mass/Vol] 40 mg/dL Normal 40-60 [facility] Comment on above: Performed By: #### G FR, ADIFF, LIPID, MG, A1C, CBC, VIDH, CMP, ANEU #### [address] [address] #### PTH #### [address] [address] Cholesterol in LDL [Mass/Vol] 55 mg/dL Normal 0-130 [facility] Comment on above: Performed By: #### G FR, ADIFF, LIPID, MG, A1C, CBC, VIDH, CMP, ANEU #### [address] [address] #### PTH #### [address] [address] Triglyceride [Mass/Vol] 117 mg/dL Normal 0-[address] [facility] Comment on above: Result Comment: Trig lyceride Reference Interval: Less than 150 Normal 150-199 Borderline high risk 200-499 High risk 500 or higher Very high risk Performed By: #### G FR, ADIFF, LIPID, MG, A1C, CBC, VIDH, CMP, ANEU #### [address] [address] #### PTH #### [address] [address] .Auto Diffon 07-26-2024 Basophil, Absolute 0.1 10 3/mcL Normal 0.0-0.2 [facility] Comment on above: Performed By: #### G FR, ADIFF, LIPID, MG, A1C, CBC, VIDH, CMP, ANEU #### [address] [address] #### PTH #### [address] [address] Basophils/100 WBC (Bld) 0.7 % Normal 0.0-2.[address] [facility] Comment on above: Performed By: #### G FR, ADIFF, LIPID, MG, A1C, CBC, VIDH, CMP, ANEU #### [address] [address] #### PTH #### [address] [address] Eosinophil, Absolute 0.0 10 3/mcL Normal 0.0-0.7 [facility] Comment on above: Performed By: #### G FR, ADIFF, LIPID, MG, A1C, CBC, VIDH, CMP, ANEU #### [address] [address] #### PTH #### [address] [address] Eosinophils/100 WBC (Bld) 0.1 % Normal 0.0-7.0 [facility] Comment on above: Performed By: #### G FR, ADIFF, LIPID, MG, A1C, CBC, VIDH, CMP, ANEU #### [address] [address] #### PTH #### [address] [address] Lymphocyte, Absolute 3.5 10 3/mcL Normal 0.9-4.3 [facility] Comment on above: Performed By: #### G FR, ADIFF, LIPID, MG, A1C, CBC, VIDH, CMP, ANEU #### [address] [address] #### PTH #### [address] [address] Lymphocytes/100 WBC (Bld) 27.1 % Normal 20.0-40.0 [facility] Comment on above: Performed By: #### G FR, ADIFF, LIPID, MG, A1C, CBC, VIDH, CMP, ANEU #### [address] [address] #### PTH #### [address] [address] Monocyte, Absolute 0.7 10 3/mcL Normal 0.1-1.4 [facility] Comment on above: Performed By: #### G FR, ADIFF, LIPID, MG, A1C, CBC, VIDH, CMP, ANEU #### [address] [address] #### PTH #### [address] [address] Monocytes/100 WBC (Bld) 5.8 % Normal 2.0-13.[address] [facility] Comment on above: Performed By: #### G FR, ADIFF, LIPID, MG, A1C, CBC, VIDH, CMP, ANEU #### [address] [address] #### PTH #### [address] [address] Neutrophils/100 WBC (Bld) 66.3 % Normal 50.0-75.0 [facility] Comment on above: Performed By: #### G FR, ADIFF, LIPID, MG, A1C, CBC, VIDH, CMP, ANEU #### [address] [address] #### PTH #### [address] [address] .NEUABSon 07-26-2024 Neutrophil, Absolute 8.5 10 3/mcL High 2.3-8.1 [facility] Comment on above: Performed By: #### G FR, ADIFF, LIPID, MG, A1C, CBC, VIDH, CMP, ANEU #### [place] [address] #### PTH #### [address] [address] A1Con 07-26-2024 Glucose [Mass/Vol] 146 mg/dL Normal [facility] Comment on above: Result Comment: Kelly mated Average Glucose calculated by equation ((28.7xA1C)-46.7) Estimated average glucose (eAG) is a calculated value from Hemoglobin A1C and is pharmacy sales representative of the average blood glucose level in the last 2-3 month period. Normal range: less than 114 mg/dL Performed By: #### G FR, ADIFF, LIPID, MG, A1C, CBC, VIDH, CMP, ANEU #### [address] [address] #### PTH #### [place] [address] HbA1c (Bld) [Mass fraction] 6.7 % High 4.3-6.4 [facility] Comment on above: Performed By: #### G FR, ADIFF, LIPID, MG, A1C, CBC, VIDH, CMP, ANEU #### [place] [address] #### PTH #### [place] [address] CBCon 07-26-2024 Erythrocyte distribution width (RBC) [Ratio] 14.0 % Normal 11.5-15.5 [facility] Comment on above: Performed By: #### G FR, ADIFF, LIPID, MG, A1C, CBC, VIDH, CMP, ANEU #### [place] [address] #### PTH #### [place] [address] Hematocrit (Bld) [Volume fraction] 46.7 % High 34.0-46.0 [facility] Comment on above: Performed By: #### G FR, ADIFF, LIPID, MG, A1C, CBC, VIDH, CMP, ANEU #### [place] [address] #### PTH #### [place] [address] Hgb 15.7 G/dL Normal 12.0-16.0 [facility] Comment on above: Performed By: #### G FR, ADIFF, LIPID, MG, A1C, CBC, VIDH, CMP, ANEU #### [place] [address] #### PTH #### [place] [address] MCH (RBC) [Entitic mass] 30.7 pg Normal 27.0-33.0 [facility] Comment on above: Performed By: #### G FR, ADIFF, LIPID, MG, A1C, CBC, VIDH, CMP, ANEU #### [place] [address] #### PTH #### [address] [address] MCHC 33.6 G/dL Normal 32.0-36.0 [facility] Comment on above: Performed By: #### G FR, ADIFF, LIPID, MG, A1C, CBC, VIDH, CMP, ANEU #### [place] [address] #### PTH #### [place] [address] MCV (RBC) [Entitic vol] 91.6 fL Normal 80.0-99.[address] [facility] Comment on above: Performed By: #### G FR, ADIFF, LIPID, MG, A1C, CBC, VIDH, CMP, ANEU #### [place] [address] #### PTH #### [place] [address] Platelet 377 10 3/mcL Normal 150-450 [facility] Comment on above: Performed By: #### G FR, ADIFF, LIPID, MG, A1C, CBC, VIDH, CMP, ANEU #### [place] [address] #### PTH #### [place] [address] Platelet mean volume (Bld) [Entitic vol] 8.1 fL Normal 6.6-10.5 [facility] Comment on above: Performed By: #### G FR, ADIFF, LIPID, MG, A1C, CBC, VIDH, CMP, ANEU #### [place] [address] #### PTH #### [place] [address] RBC 5.10 10 6/mcL Normal 4.10-5.30 [facility] Comment on above: Performed By: #### G FR, ADIFF, LIPID, MG, A1C, CBC, VIDH, CMP, ANEU #### [address] [address] #### PTH #### [place] [address] WBC 12.8 10 3/mcL High 4.5-10.8 [facility] Comment on above: Performed By: #### G FR, ADIFF, LIPID, MG, A1C, CBC, VIDH, CMP, ANEU #### [address] [address] #### PTH #### [place] [address] FEon 07-26-2024 Iron [Mass/Vol] 114 ug/dL Normal 50-170 [facility] Comment on above: Performed By: #### G FR, ADIFF, LIPID, MG, A1C, CBC, VIDH, CMP, ANEU #### [place] [address] #### PTH #### [place] [address] IBCon 07-26-2024 TIBC 318 mcg/dL Normal 250-450 [facility] Comment on above: Performed By: #### G FR, ADIFF, LIPID, MG, A1C, CBC, VIDH, CMP, ANEU #### [place] [address] #### PTH #### [place] [address] LABORATORYOrdered By: SYSTEM SYSTEM on 07-26-2024 25-hydroxyvitamin [...] calculated value from Hemoglobin A1C and is pharmacy sales representative of the average blood glucose [...] 07-26-2024 PTH, Intact 22.4 pg/mL Normal 18.5-88.0 [facility] Comment on above: Performed By: #### G FR, ADIFF, LIPID, MG, A1C, CBC, VIDH, CMP, ANEU #### [address] [address] #### PTH #### [address] [address] VIDHon 07-26-2024 Vit. D 25-Hydroxy 26.1 ng/mL Normal [facility] Comment on above: Result Comment: Inte rpretive Values Based on Total 25(OH) Vitamin D: Deficient <20 ng/mL Insufficient 20 - <30 ng/mL Sufficient 30-100 ng/mL Performed By: #### G FR, ADIFF, LIPID, MG, A1C, CBC, VIDH, CMP, ANEU #### [address] [address] #### PTH #### [address] [address] Blood type and Indirect anti body screen panel (Bld)on 03-07-2024 ABO group Nom (Bld) A [facility] Blood group antibody screen Ql Negative [facility] D Ag Ql (Bld) Positive [facility] ABO group Nom (Bld) A Normal [facility] Comment on above: Order Comment: Diagn osis of Diabetes-Adults Non-Diabetic: < or = 5.6% Increased risk for developing diabetes: 5.7-6.4% Diagnostic of diabetes: > or = 6.5% Monitoring of Diabetes Age (y)....................... Therapeutic Goal (%) Adults: >18.........................<7.0 Pediatrics: 13-18...................<7.5 Pediatrics: 7-12....................<8.0 Pediatrics: 0-6..................... 7.5-8.5 [employer]. Diabetes Care 33(S1), Jun 2009 Performed By: #### 4 548-4 #### YASMIN Loving (51694) [facility] ([facility]) [address] [place] [address] Blood group antibody screen Ql Negative Normal [facility] Comment on above: Order Comment: Diagn osis of Diabetes-Adults Non-Diabetic: < or = 5.6% Increased risk for developing diabetes: 5.7-6.4% Diagnostic of diabetes: > or = 6.5% Monitoring of Diabetes Age (y)....................... Therapeutic Goal (%) Adults: >18.........................<7.0 Pediatrics: 13-18...................<7.5 Pediatrics: 7-12....................<8.0 Pediatrics: 0-6..................... 7.5-8.5 [employer]. Diabetes Care 33(S1), Jun 2009 Performed By: #### 4 548-4 #### YASMIN Loving (63457) [facility] ([facility]) [address] [place] [address] D Ag Ql (Bld) Positive Normal [facility] Comment on above: Order Comment: Diagn osis of Diabetes-Adults Non-Diabetic: < or = 5.6% Increased risk for developing diabetes: 5.7-6.4% Diagnostic of diabetes: > or = 6.5% Monitoring of Diabetes Age (y)....................... Therapeutic Goal (%) Adults: >18.........................<7.0 Pediatrics: 13-18...................<7.5 Pediatrics: 7-12....................<8.0 Pediatrics: 0-6..................... 7.5-8.5 [employer]. Diabetes Care 33(S1), Jun 2009 Performed By: #### 4 548-4 #### YASMIN Loving (80353) [facility] ([facility]) [address] [place] [address] Glucose Test strip manual (B ld) [Mass/Vol]on 03-07-2024 Glucose [Mass/Vol] 82 mg/dL 74 - 99 mg/dL [facility] Interpretation and review of laboratory results [facility] Glucose [Mass/Vol] 82 mg/dL Normal 74-99 [facility] Comment on above: Performed By: #### 4 548-4 #### YASMIN Loving (24972) [facility] ([facility]) [address] [place], [place] [address] Glucose [Mass/Vol] 112 mg/dL High 74 - 99 mg/dL [facility] Interpretation and review of laboratory results Abnormal [facility] Glucose [Mass/Vol] 112 mg/dL High 74-99 [facility] Comment on above: Performed By: #### 2 4321-2 #### YASMIN Loving ([id number]) [facility] ([facility]) [address] [place], [place] [address] Bacteria identifiedon 2023 Bacteria identified Cx Nom (U) Test: Urine Culture Specimen Source: Clean Catch/Voided Specimen Type: Urine Specimen Date: 03/02/2024910 Result Date: 03/05/2024919 Result Status: Final result Abnormal: Yes Resulting Lab: [facility] [address] [place] [address] CULTURE 20,000 - 80,000 Klebsiella oxytoca/Raoultella species (Abnormal) SUSCEPTIBILITY Klebsiella oxytoca/Raoultella species METHOD MICROSCAN --------- -------- AMOXICILLIN/CLAVULAN ATE <=8/4 ug/mL Susceptible AMPICILLIN >16.000 ug/mL Resistant AMPICILLIN/SULBACTAM <=4/2 ug/mL Susceptible CEFAZOLIN <=2 ug/mL Susceptible CIPROFLOXACIN <=0.250 ug/mL Susceptible GENTAMICIN <=2.000 ug/mL Susceptible LEVOFLOXACIN <=0.500 ug/mL Susceptible NITROFURANTOIN <=32 ug/mL Susceptible PIPERACILLIN/TAZOBAC FARLEY <=8.000 ug/mL Susceptible TRIMETHOPRIM/SULFAME THOXAZOLE <=0.5/9.5 ug/mL Susceptible Abnormal [facility] Comment on above: Performed By: #### 2 4321-2 #### YASMIN Loving (13313) [facility] ([facility]) [address] [place] [address] Blood type and Indirect anti body screen panel (Bld)on 03-02-2024 ABO group Nom (Bld) A Normal [facility] Comment on above: Performed By: #### 2 4321-2 #### YASMIN Loving ([id number]) [facility] ([facility]) [address] [place] [address] Blood group antibody screen Ql Negative [facility] Comment on above: Performed By: #### 2 4321-2 #### YASMIN Loving (42352) [facility] ([facility]) [address] [place] [address] D Ag Ql (Bld) Positive [facility] Comment on above: Performed By: #### 2 4321-2 #### YASMIN Loving ([id number]) [facility] ([facility]) [address] [place] [address] CBC panel Auto (Bld)on 03-02 Erythrocyte distribution width (RBC) [Ratio] 13.0 % Normal 11.5-14.5 [facility] Comment on above: Performed By: #### 2 4321-2 #### YASMIN Loving (03052) [facility] ([facility]) [address] [place] [address] Hematocrit (Bld) [Volume fraction] 48.1 % High 36.0-46.0 [facility] Comment on above: Performed By: #### 2 4321-2 #### YASMIN Loving (52937) [facility] ([facility]) [address] [place] [address] Hemoglobin (Bld) [Mass/Vol] 15.4 g/dL Normal 12.0-16.0 [facility] Comment on above: Performed By: #### 2 4321-2 #### YASMIN Loving (02342) [facility] ([facility]) [address] [place] [address] MCH (RBC) [Entitic mass] 29.9 pg Normal 26.0-34.0 [facility] Comment on above: Performed By: #### 2 4321-2 #### YASMIN Loving (74267) [facility] ([facility]) [address] [place] [address] MCHC (RBC) [Mass/Vol] 32.0 g/dL Normal 32.0-36.0 [facility] Comment on above: Performed By: #### 2 4321-2 #### YASMIN Loving (41226) [facility] ([facility]) [address] [place] [address] MCV (RBC) [Entitic vol] 93 fL Normal 80-100 [facility] Comment on above: Performed By: #### 2 4321-2 #### YASMIN Loving (22489) [facility] ([facility]) [address] [place] [address] Nucleated RBC/100 WBC (Bld) [Ratio] 0.0 /100 WBCs Normal 0.0-0.0 [facility] Comment on above: Performed By: #### 2 4321-2 #### YASMIN Loving (79477) [facility] ([facility]) [address] [place] [address] Platelets (Bld) [#/Vol] 377 x10*3/uL Normal 150-450 [facility] Comment on above: Performed By: #### 2 4321-2 #### YASMIN Loving (42370) [facility] ([facility]) [address] [place] [address] RBC (Bld) [#/Vol] 5.15 x10*6/uL Normal 4.00-5.20 [facility] Comment on above: Performed By: #### 2 4321-2 #### YASMIN Loving (93739) [facility] ([facility]) [address] [place] [address] WBC (Bld) [#/Vol] 13.6 x10*3/uL High 4.4-11.3 [facility] Comment on above: Performed By: #### 2 4321-2 #### YASMIN Loving (64548) [facility] ([facility]) [address] [place] [address] PT and aPTT panel Coag (PPP) on 03-02-2024 aPTT Coag (PPP) [Time] 36 s Normal 27-38 [facility] Comment on above: Order Comment: The A PTT is no longer used for monitoring Unfractionated Heparin Therapy. For monitoring Heparin Therapy, use the Heparin Assay. Performed By: #### 2 4321-2 #### YASMIN Loving (61705) [facility] ([facility]) [address] [place] [address] INR Coag (PPP) [Relative time] 1.0 Normal 0.9-1.1 [facility] Comment on above: Order Comment: The A PTT is no longer used for monitoring Unfractionated Heparin Therapy. For monitoring Heparin Therapy, use the Heparin Assay. Performed By: #### 2 4321-2 #### YASMIN Loving (10076) [facility] ([facility]) [address] [place] [address] PT Coag (PPP) [Time] 11.6 s Normal 9.8-12.8 [facility] Comment on above: Order Comment: The A PTT is no longer used for monitoring Unfractionated Heparin Therapy. For monitoring Heparin Therapy, use the Heparin Assay. Performed By: #### 2 4321-2 #### YASMIN Loving (64356) [facility] ([facility]) [address] [place] [address] Urinalysis complete W Reflex Culture panel (U)on 03-02-2024 Appearance (U) Clear Normal Clear [facility] Comment on above: Performed By: #### 2 4321-2 #### YASMIN Loving (71890) [facility] ([facility]) [address] [place] [address] Bilirubin (U) [Mass/Vol] Negative Normal NEGATIVE [facility] Comment on above: Performed By: #### 2 4321-2 #### YASMIN MCKENZIE L (72146) [facility] ([facility]) [address] [place] [address] Color (U) Colorless Normal Light-Yellow, Yellow, Dark-Yellow [facility] Comment on above: Performed By: #### 2 4321-2 #### YASMIN MCKENZIE L (67669) [facility] ([facility]) [address] [place] [address] Glucose Auto test strip (U) [Mass/Vol] Normal Normal Normal [facility] Comment on above: Performed By: #### 2 4321-2 #### YASMIN MCKENZIE L (16931) [facility] ([facility]) [address] [place] [address] Ketones (U) [Mass/Vol] Negative Normal NEGATIVE [facility] Comment on above: Performed By: #### 2 4321-2 #### YASMIN MCKENZIE L (21114) [facility] ([facility]) [address] [place] [address]102 Leukocyte esterase Auto test strip Ql (U) 75 [place]/???L Abnormal NEGATIVE [facility] Comment on above: Performed By: #### 2 4321-2 #### YASMIN MCKENZIE L ([id number]) [facility] ([facility]) [address] [place] [address] 98773 Nitrite Auto test strip Ql (U) Negative Normal NEGATIVE [facility] Comment on above: Performed By: #### 2 4321-2 #### YASMIN MCKENZIE L (83020) [facility] ([facility]) [address] [place] [address] 12319 pH (U) 6.0 [pH] Normal 5.0, 5.5, 6.0, 6.5, 7.0, 7.5, 8.0 [facility] Comment on above: Performed By: #### 2 4321-2 #### YASMIN MCKENZIE L (76017) [facility] ([facility]) [address] [place] [address] 14957 Protein (U) [Mass/Vol] Negative Normal NEGAT TOÑA, 10 (TRACE), 20 (TRACE) [facility] Comment on above: Performed By: #### 2 4321-2 #### YASMIN Loving (97074) [facility] ([facility]) [address] [place] [address] 96902 RBC (U) [#/Vol] 0.03 (TRACE) Abnormal NEGATIVE [facility] Comment on above: Performed By: #### 2 4321-2 #### YASMIN Loving (15253) [facility] ([facility]) [address] [place] [address]36 Specific gravity (U) [Rel density] 1.004 Normal 1.005-1.035 [facility] Comment on above: Performed By: #### 2 4321-2 #### YASMIN Loving (49698) [facility] ([facility]) [address] [place] [address]9801 Urobilinogen (U) [Mass/Vol] Normal Normal Normal [facility] Comment on above: Performed By: #### 2 4321-2 #### YASMIN Loving (26176) [facility] ([facility]) [address] [place] [address]11 Urinalysis microscopic panel Auto Ql (U)on 03-02-2024 Bacteria Auto (Urine sed) [#/Area] 3+ /HPF Abnormal NONE SEEN [facility] Comment on above: Performed By: #### 2 4321-2 #### YASMIN Loving (46958) [facility] ([facility]) [address] [place] [address] 82512 RBC Auto (Urine sed) [#/Area] 1-2 Normal NONE, 1-2, 3-5 [facility] Comment on above: Performed By: #### 2 4321-2 #### YASMIN Loving (15277) [facility] ([facility]) [address] [place] [address] 38560 WBC Auto (Urine sed) [#/Area] 6-10 Abnormal 1-5, NONE [facility] Comment on above: Performed By: #### 2 4321-2 #### YASMIN Loving (33005) [facility] ([facility]) [address] [place], [place] [address] FL FLUORO IMAGES NO CHARGEon 12-26-2023 FL FLUORO IMAGES NO CHARGE These images are not reportable by radiology and will not be interpreted by Radiologists. Normal [facility] Glucose Test strip manual (B ld) [Mass/Vol]on 12-26-2023 Glucose [Mass/Vol] 98 mg/dL 74 - 99 mg/dL [facility] Interpretation and review of laboratory results Normal [facility] Glucose [Mass/Vol] 98 mg/dL Normal 74-99 [facility] Comment on above: Performed By: #### 2 4321-2 #### YASMIN Loving (87407) [facility] ([facility]) [address] [place], [place] [address] Glucose [Mass/Vol] 119 mg/dL High 74 - 99 mg/dL [facility] Interpretation and review of laboratory results Abnormal [facility] Glucose [Mass/Vol] 119 mg/dL High 74-99 [facility] Comment on above: Performed By: #### 3 4529-8 #### YASMIN Loving (42940) [facility] ([facility]) [address] [place], [place] [address] Surgical pathology studyon 0 12-26-2023 Surgical pathology study Pathology report.total SEE COMMENT Surgical Pathology Case: [id number] Authorizing Provider: Braden Hopkins MD MPH Collected: 12/26/2023 1340 Ordering Location: [facility] Received: 12/26/2023 [facility] [place] Pathologist: Yulissa Barrientos MD Specimen: URETER [...] in toto in one cassette. [facility] Comment on above: Order Comment: Pre-o p [...] Status: Final result Abnormal: No Resulting Lab: [facility] [address] [place] [address] CULTURE No significant growth [facility] Comment on above: Performed By: #### 3 4529-8 #### YASMIN Loving (10403) [facility] ([facility]) [address] [place], [place] [phone] Basic metabolic 2000 panelon 12-19-2023 Anion gap [Moles/Vol] 12 mmol/L Normal 10-20 [facility] Comment on above: Performed By: #### 3 4529-8 #### YASMIN Loving (78246) [facility] ([facility]) [address] [place], [place] [address] Calcium [Mass/Vol] 9.2 mg/dL Normal 8.6-10.3 [facility] Comment on above: Performed By: #### 3 4529-8 #### YASMIN Lovign (65454) [facility] ([facility]) [address] [place] [address]1428 Chloride [Moles/Vol] 102 mmol/L Normal 98-107 [facility] Comment on above: Performed By: #### 3 4529-8 #### YASMIN Loving (07070) [facility] ([facility]) [address] [place] [address] CO2 [Moles/Vol] 28 mmol/L Normal 21-32 [facility] Comment on above: Performed By: #### 3 4529-8 #### YASMIN Loving (19944) [facility] ([facility]) [address] [place] [address]133 Creatinine [Mass/Vol] 0.94 mg/dL Normal 0.50-1.05 [facility] Comment on above: Performed By: #### 3 4529-8 #### YASMIN Loving (07199) [facility] ([facility]) [address] [place] [address] 88138 Glomerular filtration rate/1.73 sq M.predicted 63 mL/min/1.73m*2 Normal >60 [facility] Comment on above: Result Comment: Calc ulations of estimated GFR are performed using the 2020 CKD-EPI Study Refit equation without the race variable for the IDMS-Traceable creatinine methods. https://jasn.asnjournals.org/content/early//ASN.924 1246001 Performed By: #### 3 4529-8 #### YASMIN Loving (40771) [facility] ([facility]) [address] [place] [address] 85437 Glucose [Mass/Vol] 134 mg/dL High 74-99 [facility] Comment on above: Performed By: #### 3 4529-8 #### YASMIN Loving (07636) [facility] ([facility]) [address] [place] [address]6439 Potassium [Moles/Vol] 4.8 mmol/L Normal 3.5-5.3 [facility] Comment on above: Performed By: #### 3 4529-8 #### YASMIN Loving (82131) [facility] ([facility]) [address] [place] [address] 50565 Sodium [Moles/Vol] 137 mmol/L Normal 136-145 [facility] Comment on above: Performed By: #### 3 4529-8 #### YASMIN Loving (83192) [facility] ([facility]) [address] [place] [address] 91578 Urea nitrogen [Mass/Vol] 29 mg/dL High 6-23 [facility] Comment on above: Performed By: #### 3 4529-8 #### YASMIN Loving (57005) [facility] ([facility]) [address] [place] [address] 38804 CBC panel Auto (Bld)on 12-18 Erythrocyte distribution width (RBC) [Ratio] 14.3 % Normal 11.5-14.5 [facility] Comment on above: Performed By: #### 3 4529-8 #### YASMIN Loving (21460) [facility] ([facility]) [address] [place] [address] 02892 Hematocrit (Bld) [Volume fraction] 45.5 % Normal 36.0-46.0 [facility] Comment on above: Performed By: #### 3 4529-8 #### YASMIN Loving (75972) [facility] ([facility]) [address] [place] [address] 34603 Hemoglobin (Bld) [Mass/Vol] 14.9 g/dL Normal 12.0-16.0 [facility] Comment on above: Performed By: #### 3 4529-8 #### YASMIN Loving (93242) [facility] ([facility]) [address] [place] [address] 27511 MCH (RBC) [Entitic mass] 29.5 pg Normal 26.0-34.0 [facility] Comment on above: Performed By: #### 3 4529-8 #### YASMIN Loving (16744) [facility] ([facility]) [address] [place] [address] 53102 MCHC (RBC) [Mass/Vol] 32.7 g/dL Normal 32.0-36.0 [facility] Comment on above: Performed By: #### 3 4529-8 #### YASMIN Loving (75895) [facility] ([facility]) [address] [place] [address] 84440 MCV (RBC) [Entitic vol] 90 fL Normal 80-100 [facility] Comment on above: Performed By: #### 3 4529-8 #### YASMIN Loving (26363) [facility] ([facility]) [address] [place] [address] 83609 Nucleated RBC/100 WBC (Bld) [Ratio] 0.0 /100 WBCs Normal 0.0-0.0 [facility] Comment on above: Performed By: #### 3 4529-8 #### YASMIN Loving (33827) [facility] ([facility]) [address] [place] [address] 53102 Platelets (Bld) [#/Vol] 296 x10*3/uL Normal 150-450 [facility] Comment on above: Performed By: #### 3 4529-8 #### YASMIN Loving (83065) [facility] ([facility]) [address] [place] [address] 56257 RBC (Bld) [#/Vol] 5.05 x10*6/uL Normal 4.00-5.20 [facility] Comment on above: Performed By: #### 3 4529-8 #### YASMIN Loving ([id number]) [facility] ([facility]) [id number] [place] [address] 07264 WBC (Bld) [#/Vol] 13.9 x10*3/uL High 4.4-11.3 [facility] Comment on above: Performed By: #### 3 4529-8 #### YASMIN Loving ([id number]) [facility] ([facility]) [address] [place] [address] [id number] Coagulation tissue factor in ducedon 12-19-2023 PT Coag (PPP) [Time] 11.3 s Normal 9.8-12.8 [facility] Comment on above: Performed By: #### 3 4529-8 #### YASMIN Loving ([id number]) [facility] ([facility]) [address] [place] [address] 24439 PT Coag (PPP) [Time]on 12-18 INR Coag (PPP) [Relative time] 1.0 Normal 0.9-1.1 [facility] Comment on above: Performed By: #### 3 4529-8 #### YASMIN Loving ([id number]) [facility] ([facility]) [address] [place] [address] 59638 Urinalysis complete panel (U )on 12-19-2023 Appearance (U) Clear Normal Clear The [facility] Comment on above: Performed By: #### 3 4529-8 #### YASMIN Loving (72342) [facility] ([facility]) [address] [place] [address] 21796 Bilirubin (U) [Mass/Vol] Negative Normal NEGATIVE [facility] Comment on above: Performed By: #### 3 4529-8 #### YASMIN Loving (93930) [facility] ([facility]) [address] [place] [address] 55665 Color (U) Colorless Normal Light-Yellow, Yellow, Dark-Yellow [facility] Comment on above: Performed By: #### 3 4529-8 #### YASMIN Loving (96038) [facility] ([facility]) [address] [place] [address] 12125 Glucose Auto test strip (U) [Mass/Vol] Normal Normal Normal [facility] Comment on above: Performed By: #### 3 4529-8 #### YASMIN Loving (40160) [facility] ([facility]) [address] [place] [address] 90610 Ketones (U) [Mass/Vol] Negative Normal NEGATIVE [facility] Performed By: #### 3 4529-8 #### YASMIN Loving (55776) [facility] ([facility]) [address] [place] [address] 90879 Leukocyte esterase Auto test strip Ql (U) Negative Normal NEGATIVE [facility] Comment on above: Performed By: #### 3 4529-8 #### YASMIN Loving (04188) [facility] ([facility]) [address] [place] [address] 05341 Nitrite Auto test strip Ql (U) Negative Normal NEGATIVE [facility] Comment on above: Performed By: #### 3 4529-8 #### YASMIN Loving (60189) [facility] ([facility]) [address] [place] [address] 84634 pH (U) 5.5 [pH] Normal 5.0, 5.5, 6.0, 6.5, 7.0, 7.5, 8.0 [facility] Comment on above: Performed By: #### 3 4529-8 #### YASMIN Loving (75933) [facility] ([facility]) [address] [place] [address] 24869 Protein (U) [Mass/Vol] Negative Normal NEGAT TOÑA, 10 (TRACE), 20 (TRACE) [facility] Comment on above: Performed By: #### 3 4529-8 #### YASMIN Loving (83193) [facility] ([facility]) [address] [place] [address] 21098 RBC (U) [#/Vol] 0.5 (2+) Abnormal NEGATIVE [facility] Comment on above: Performed By: #### 3 4529-8 #### YASMIN Loving (18600) [facility] ([facility]) [id number] [place] [address] 83136 Specific gravity (U) [Rel density] 1.004 Normal 1.005-1.035 [facility] Comment on above: Performed By: #### 3 4529-8 #### YASMIN Loving (35040) [facility] ([facility]) [address] [place] [address] 18505 Urobilinogen (U) [Mass/Vol] Normal Normal Normal [facility] Comment on above: Performed By: #### 3 4529-8 #### YASMIN Loving (48669) [facility] ([facility]) [address] [place] [address] 05851 Urinalysis microscopic panel Auto Ql (U)on 12-19-2023 RBC Auto (Urine sed) [#/Area] 1-2 Normal NONE, 1-2, 3-5 [facility] Comment on above: Performed By: #### 3 4529-8 #### YASMIN Loving (85701) [facility] ([facility]) [address] [place] [address] 96958 WBC Auto (Urine sed) [#/Area] 1-5 Normal 1-5, NONE [facility] Comment on above: Performed By: #### 3 4529-8 #### YASMIN Loving (07689) [facility] ([facility]) [address] [place] [address] UROGRAPHY WITH 3D VOLUME RENDERED IMAGINGon 11-22-2023 CT UROGRAPHY WITH 3D VOLUME RENDERED IMAGING Interpreted By: Day Truong, STUDY: CT UROGRAPHY WITH 3D VOLUME RENDERED IMAGING; 11/22/2023 2:16 pm INDICATION: Signs/Symptoms:urete ral mass COMPARISON: None ACCESSION NUMBER(S): [id number] ORDERING CLINICIAN: BRADEN HOPKINS TECHNIQUE: CT of [...] Day Truong 11/24/2023 12:35 PM Dictation workstation: [id number] [facility] RENINon 11-21-2023 Renin Activity 1.174 ng/mL/hr Normal 0.167-5.380 [facility] ([place]) Comment on above: Result Comment: This test was developed and its performance characteristics determined by [employer]. It has not been cleared or approved by the Food and Drug Administration. Performed At: [address] [id number] Rayshawn Paul MD Ph:[phone] Performed By: #### D HEAS, INSLN, CPEP, ANKUR, HCV1, MADYSON, GEOVANNA, GGT, PTH #### [address] [address] #### 107544, VIDH, 928930, GFR, MG, JESSICA, CMP, LIP, TSH, ADIFF, CRP, PHOS, CBC, ANEU #### [place] [address] [place], [place] [address] .Auto Diffon 11-17-2023 Basophil, Absolute 0.1 10 3/mcL Normal 0.0-0.2 [facility] ([place]) Comment on above: Performed By: #### D HEAS, INSLN, CPEP, ANKUR, HCV1, MADYSON, GEOVANNA, GGT, PTH #### [place] [address] #### 902110, VIDH, 405180, GFR, MG, JESSICA, CMP, LIP, TSH, ADIFF, CRP, PHOS, CBC, ANEU #### [address] [address] Basophils/100 WBC (Bld) 1.1 % Normal 0.0-2.5 [facility] ([place]) Comment on above: Performed By: #### Amy RUSSAS, INSLN, CPEP, ANKUR, HCV1, MADYSON, GEOVANNA, GGT, PTH #### [place] [address] #### 295835, VIDH, 760571, GFR, MG, JESSICA, CMP, LIP, TSH, ADIFF, CRP, PHOS, CBC, ANEU #### [address] [address] Eosinophil, Absolute 0.0 10 3/mcL Normal 0.0-0.4 [facility] ([place]) Comment on above: Performed By: #### Amy RUSSAS, INSLN, CPEP, ANKUR, HCV1, MADYSON, GEOVANNA, GGT, PTH #### [place] [address] #### 391558, VIDH, 380256, GFR, MG, JESSICA, CMP, LIP, TSH, ADIFF, CRP, PHOS, CBC, ANEU #### [address] [address] Eosinophils/100 WBC (Bld) 0.0 % Normal 0.0-7.0 [facility] ([place]) Comment on above: Performed By: #### D HEAS, INSLN, CPEP, ANKUR, HCV1, MADYSON, GEOVANNA, GGT, PTH #### [place] [address] #### 369085, VIDH, 309797, GFR, MG, JESSICA, CMP, LIP, TSH, ADIFF, CRP, PHOS, CBC, ANEU #### [address] [address] Lymphocyte, Absolute 3.2 10 3/mcL Normal 0.8-3.9 [facility] ([place]) Comment on above: Performed By: #### D HEAS, INSLN, CPEP, ANKUR, HCV1, MADYSON, GEOVANNA, GGT, PTH #### [address] [address] #### 563496, VIDH, 748272, GFR, MG, JESSICA, CMP, LIP, TSH, ADIFF, CRP, PHOS, CBC, ANEU #### [address] [address] Lymphocytes/100 WBC (Bld) 23.4 % Normal 10.0-50.0 [facility] ([place]) Comment on above: Performed By: #### Amy RUSSAS, INSLN, CPEP, ANKUR, HCV1, MADYSON, GEOVANNA, GGT, PTH #### [place] [address] #### 246826, VIDH, 947581, GFR, MG, JESSICA, CMP, LIP, TSH, ADIFF, CRP, PHOS, CBC, ANEU #### [address] [address] Monocyte, Absolute 0.6 10 3/mcL Normal 0.2-1.0 [facility] ([place]) Comment on above: Performed By: #### Amy RUSSAS, INSLN, CPEP, ANKUR, HCV1, MADYSON, GEOVANNA, GGT, PTH #### [address] [address] #### 261335, VIDH, 771783, GFR, MG, JESSICA, CMP, LIP, TSH, ADIFF, CRP, PHOS, CBC, ANEU #### [address] [address] Monocytes/100 WBC (Bld) 4.6 % Normal 1.7-13.0 [facility] ([place]) Comment on above: Performed By: #### D HEAS, INSLN, CPEP, ANKUR, HCV1, MADYSON, GEOVANNA, GGT, PTH #### [address] [address] #### 979350, VIDH, 334399, GFR, MG, JESSICA, CMP, LIP, TSH, ADIFF, CRP, PHOS, CBC, ANEU #### [address] [address] Neutrophils/100 WBC (Bld) 70.9 % Normal 37.0-80.0 [facility] ([place]) Comment on above: Performed By: #### Amy HEAS, INSLN, CPEP, ANKUR, HCV1, MADYSON, GEOVANNA, GGT, PTH #### [place] [address] #### 907187, VIDH, 217046, GFR, MG, JESSICA, CMP, LIP, TSH, ADIFF, CRP, PHOS, CBC, ANEU #### [address] [address] .GFRon 11-17-2023 GFR Non- 59 ml/min/1.73sqm Normal [facility] ([place]) Comment on above: Result Comment: GFR Population [...] ANKUR, HCV1, MADYSON, GEOVANNA, GGT, PTH #### [place] [address] #### 597390, VIDH, 320002, GFR, MG, JESSICA, CMP, LIP, TSH, ADIFF, CRP, PHOS, CBC, ANEU #### [address] [address] GFR 71 ml/min/1.73sqm Normal [facility] ([place]) Comment on above: Result Comment: GFR Population [...] ANKUR, HCV1, MADYSON, GEOVANNA, GGT, PTH #### [address] [address] #### 420724, VIDH, 254247, GFR, MG, JESSICA, CMP, LIP, TSH, ADIFF, CRP, PHOS, CBC, ANEU #### [address] [address] .NEUABSon 11-17-2023 Neutrophil, Absolute 9.6 10 3/mcL High 2.9-6.2 [facility] ([place]) Comment on above: Performed By: #### Amy HEAS, INSLN, CPEP, ANKUR, HCV1, MADYSON, GEOVANNA, GGT, PTH #### [place] [address] #### 236263, VIDH, 699343, GFR, MG, JESSICA, CMP, LIP, TSH, ADIFF, CRP, PHOS, CBC, ANEU #### [address] [address] A1Con 11-17-2023 HbA1c (Bld) [Mass fraction] 8.4 % High 4.3-6.4 [facility] ([place]) Comment on above: Performed By: #### Amy HEAS, INSLN, CPEP, ANKUR, HCV1, MADYSON, GEOVANNA, GGT, PTH #### [place] [address] #### 642963, VIDH, 872341, GFR, MG, JESSICA, CMP, LIP, TSH, ADIFF, CRP, PHOS, CBC, ANEU #### [address] [address] CBCon 11-17-2023 Erythrocyte distribution width (RBC) [Ratio] 14.5 % Normal 11.5-14.5 [facility] ([place]) Comment on above: Performed By: #### D HEAS, INSLN, CPEP, ANKUR, HCV1, MADYSON, GEOVANNA, GGT, PTH #### [place] [address] #### 900762, VIDH, 995258, GFR, MG, JESSICA, CMP, LIP, TSH, ADIFF, CRP, PHOS, CBC, ANEU #### [address] [address] Hematocrit (Bld) [Volume fraction] 44.8 % Normal 37.0-47.0 [facility] ([place]) Comment on above: Performed By: #### D HEAS, INSLN, CPEP, ANKUR, HCV1, MADYSON, GEOVANNA, GGT, PTH #### [place] [address] #### 942190, VIDH, 295043, GFR, MG, JESSICA, CMP, LIP, TSH, ADIFF, CRP, PHOS, CBC, ANEU #### [address] [address] Hgb 15.4 G/dL Normal 12.0-16.0 [facility] ([place]) Comment on above: Performed By: #### D HEAS, INSLN, CPEP, ANKUR, HCV1, MADYSON, GEOVANNA, GGT, PTH #### [place] [address] #### 220312, VIDH, 380393, GFR, MG, JESSICA, CMP, LIP, TSH, ADIFF, CRP, PHOS, CBC, ANEU #### [address] [address] MCH (RBC) [Entitic mass] 29.6 pg Normal 27.0-31.2 [facility] ([place]) Comment on above: Performed By: #### Amy RUSSAS, INSLN, CPEP, ANKUR, HCV1, MADYSON, GEOVANNA, GGT, PTH #### [place] [address] #### 912283, VIDH, 852517, GFR, MG, JESSICA, CMP, LIP, TSH, ADIFF, CRP, PHOS, CBC, ANEU #### [address] [address] MCHC 34.3 G/dL Normal 33.0-37.0 [facility] ([place]) Comment on above: Performed By: #### Amy RUSSAS, INSLN, CPEP, ANKUR, HCV1, MADYSON, GEOVANNA, GGT, PTH #### [place] [address] #### 096326, VIDH, 284759, GFR, MG, JESSICA, CMP, LIP, TSH, ADIFF, CRP, PHOS, CBC, ANEU #### [address] [address] MCV (RBC) [Entitic vol] 86.3 fL Normal 80.0-94.0 [facility] ([place]) Comment on above: Performed By: #### Amy RUSSAS, INSLN, CPEP, ANKUR, HCV1, MADYSON, GEOVANNA, GGT, PTH #### [place] [address] #### 799144, VIDH, 692023, GFR, MG, JESSICA, CMP, LIP, TSH, ADIFF, CRP, PHOS, CBC, ANEU #### [address] [address] Platelet 332 10 3/mcL Normal 130-400 [facility] ([place]) Comment on above: Performed By: #### Amy RUSSAS, INSLN, CPEP, ANKUR, HCV1, MADYSON, GEOVANNA, GGT, PTH #### [place] [address] #### 032847, VIDH, 636700, GFR, MG, JESSICA, CMP, LIP, TSH, ADIFF, CRP, PHOS, CBC, ANEU #### [address] [address] Platelet mean volume (Bld) [Entitic vol] 7.8 fL Normal 7.4-10.4 [facility] ([place]) Comment on above: Performed By: #### D HEAS, INSLN, CPEP, ANKUR, HCV1, MADYSON, GEOVANNA, GGT, PTH #### [place] [address] #### 115119, VIDH, 134816, GFR, MG, JESSICA, CMP, LIP, TSH, ADIFF, CRP, PHOS, CBC, ANEU #### [address] [address] RBC 5.19 10 6/mcL Normal 4.20-5.40 [facility] ([place]) Comment on above: Performed By: #### D PETRONAAS, INSLN, CPEP, ANKUR, HCV1, MADYSON, GEOVANNA, GGT, PTH #### [place] [address] #### 596876, VIDH, 858601, GFR, MG, JESSICA, CMP, LIP, TSH, ADIFF, CRP, PHOS, CBC, ANEU #### [address] [address] WBC 13.5 10 3/mcL High 4.6-10.8 [facility] ([place]) Comment on above: Performed By: #### Amy RUSSAS, INSLN, CPEP, ANKUR, HCV1, MADYSON, GEOVANNA, GGT, PTH #### [place] [address] #### 689028, VIDH, 254227, GFR, MG, JESSICA, CMP, LIP, TSH, ADIFF, CRP, PHOS, CBC, ANEU #### [address] [address] CMPon 11-17-2023 Albumin Level 3.9 G/dL Normal 3.4-4.8 [facility] ([place]) Comment on above: Performed By: #### D HEAS, INSLN, CPEP, ANKUR, HCV1, MADYSON, GEOVANNA, GGT, PTH #### [place] [address] #### 998155, VIDH, 890913, GFR, MG, JESSICA, CMP, LIP, TSH, ADIFF, CRP, PHOS, CBC, ANEU #### [address] [address] Albumin/Globulin [Mass ratio] 0.9 {ratio} Low 1.1-2.5 [facility] ([place]) Comment on above: Performed By: #### D HEAS, INSLN, CPEP, ANKUR, HCV1, MADYSON, GEOVANNA, GGT, PTH #### [place] [address] #### 498524, VIDH, 989046, GFR, MG, JESSICA, CMP, LIP, TSH, ADIFF, CRP, PHOS, CBC, ANEU #### [address] [address] ALP [Catalytic activity/Vol] 55 U/L Normal 40-135 [facility] ([place]) Comment on above: Performed By: #### D HEAS, INSLN, CPEP, ANKUR, HCV1, MADYSON, GEOVANNA, GGT, PTH #### [place] [address] #### 111690, VIDH, 610576, GFR, MG, JESSICA, CMP, LIP, TSH, ADIFF, CRP, PHOS, CBC, ANEU #### [address] [address] ALT [Catalytic activity/Vol] 23 U/L Normal 14-59 [facility] ([place]) Comment on above: Performed By: #### D HEAS, INSLN, CPEP, ANKUR, HCV1, MADYSON, GEOVANNA, GGT, PTH #### [place] [address] #### 980278, VIDH, 625114, GFR, MG, JESSICA, CMP, LIP, TSH, ADIFF, CRP, PHOS, CBC, ANEU #### [address] [address] AST [Catalytic activity/Vol] 15 U/L Normal 10-40 [facility] ([place]) Comment on above: Performed By: #### D HEAS, INSLN, CPEP, ANKUR, HCV1, MADYSON, GEOVANNA, GGT, PTH #### [place] [address] #### 240229, VIDH, 798814, GFR, MG, JESSICA, CMP, LIP, TSH, ADIFF, CRP, PHOS, CBC, ANEU #### [address] [address] Bili Total 0.4 mg/dL Normal 0.2-1.0 [facility] ([place]) Comment on above: Result Comment: Use of this assay is not recommended for patients undergoing treatment with eltrombopag due to the potential for falsely elevated results. Performed By: #### D HEAS, INSLN, CPEP, ANKUR, HCV1, MADYSON, GEOVANNA, GGT, PTH #### [place] [address] #### 327828, VIDH, 512841, GFR, MG, JESSICA, CMP, LIP, TSH, ADIFF, CRP, PHOS, CBC, ANEU #### [address] [address] BUN/Creatinine Ratio 29 ratio High 7-27 [facility] ([place]) Comment on above: Performed By: #### D HEAS, INSLN, CPEP, ANKUR, HCV1, MADYSON, GEOVANNA, GGT, PTH #### [place] [address] #### 432452, VIDH, 268875, GFR, MG, JESSICA, CMP, LIP, TSH, ADIFF, CRP, PHOS, CBC, ANEU #### [address] [address] Calcium [Mass/Vol] 9.3 mg/dL Normal 8.4-10.2 [facility] ([place]) Comment on above: Performed By: #### D HEAS, INSLN, CPEP, ANKUR, HCV1, MADYSON, GEOVANNA, GGT, PTH #### [place] [address] #### 955717, VIDH, 726549, GFR, MG, JESSICA, CMP, LIP, TSH, ADIFF, CRP, PHOS, CBC, ANEU #### [address] [address] Chloride [Moles/Vol] 102 mmol/L Normal 98-107 [facility] ([place]) Comment on above: Performed By: #### Amy RUSSAS, INSLN, CPEP, ANKUR, HCV1, MADYSON, GEOVANNA, GGT, PTH #### [place] [address] #### 501026, VIDH, 724861, GFR, MG, JESSICA, CMP, LIP, TSH, ADIFF, CRP, PHOS, CBC, ANEU #### [address] [address] CO2 [Moles/Vol] 26 mmol/L Normal 23-31 [facility] ([place]) Comment on above: Performed By: #### Amy RUSSAS, INSLN, CPEP, ANKUR, HCV1, MADYSON, GEOVANNA, GGT, PTH #### [place] [address] #### 919717, VIDH, 796244, GFR, MG, JESSICA, CMP, LIP, TSH, ADIFF, CRP, PHOS, CBC, ANEU #### [address] [address] Creatinine [Mass/Vol] 0.93 mg/dL Normal 0.55-1.02 [facility] ([place]) Comment on above: Performed By: #### Amy HEAS, INSLN, CPEP, ANKUR, HCV1, MADYSON, GEOVANNA, GGT, PTH #### [place] [address] #### 568210, VIDH, 919975, GFR, MG, JESSICA, CMP, LIP, TSH, ADIFF, CRP, PHOS, CBC, ANEU #### [address] [address] Electrolyte Balance 11.0 mEq/L Normal 4.0-15.0 [facility] ([place]) Comment on above: Performed By: #### D HEAS, INSLN, CPEP, ANKUR, HCV1, MADYSON, GEOVANNA, GGT, PTH #### [address] [address] #### 629252, VIDH, 023894, GFR, MG, JESSICA, CMP, LIP, TSH, ADIFF, CRP, PHOS, CBC, ANEU #### [address] [address] Globulin 4.5 G/dL Normal [facility] ([place]) Comment on above: Performed By: #### D HEAS, INSLN, CPEP, ANKUR, HCV1, MADYSON, GEOVANNA, GGT, PTH #### [place] [address] #### 487946, VIDH, 714883, GFR, MG, JESSICA, CMP, LIP, TSH, ADIFF, CRP, PHOS, CBC, ANEU #### [address] [address] Glucose [Mass/Vol] 179 mg/dL High 83-110 [facility] ([place]) Comment on above: Performed By: #### D HEAS, INSLN, CPEP, ANKUR, HCV1, MADYSON, GEOVANNA, GGT, PTH #### [place] [address] #### 637715, VIDH, 277618, GFR, MG, JESSICA, CMP, LIP, TSH, ADIFF, CRP, PHOS, CBC, ANEU #### [address] [address] Potassium [Moles/Vol] 5.1 mmol/L Normal 3.5-5.1 [facility] ([place]) Comment on above: Performed By: #### D HEAS, INSLN, CPEP, ANKUR, HCV1, MADYSON, GEOVANNA, GGT, PTH #### [place] [address] #### 929148, VIDH, 112588, GFR, MG, JESSICA, CMP, LIP, TSH, ADIFF, CRP, PHOS, CBC, ANEU #### [address] [address] Sodium [Moles/Vol] 139 mmol/L Normal 136-145 [facility] ([place]) Comment on above: Performed By: #### Amy RUSSAS, INSLN, CPEP, ANKUR, HCV1, MADYSON, GEOVANNA, GGT, PTH #### [place] [address] #### 201557, VIDH, 225968, GFR, MG, JESSICA, CMP, LIP, TSH, ADIFF, CRP, PHOS, CBC, ANEU #### [address] [address] Total Protein 8.4 G/dL High 6.4-8.2 [facility] ([place]) Comment on above: Performed By: #### mAy RUSSAS, INSLN, CPEP, ANKUR, HCV1, MADYSON, GEOVANNA, GGT, PTH #### [place] [address] #### 986873, VIDH, 943944, GFR, MG, JESSICA, CMP, LIP, TSH, ADIFF, CRP, PHOS, CBC, ANEU #### [address] [address] Urea nitrogen [Mass/Vol] 27 mg/dL High 7-18 [facility] ([place]) Comment on above: Performed By: #### Amy BOWMAN, INSLN, CPEP, ANKUR, HCV1, MADYSON, GEOVANNA, GGT, PTH #### [place] [address] #### 054360, VIDH, 784056, GFR, MG, JESSICA, CMP, LIP, TSH, ADIFF, CRP, PHOS, CBC, ANEU #### [address] [address] FT3on 11-17-2023 Free T3 [Mass/Vol] 2.65 pg/mL Normal 2.30-4.00 [facility] ([place]) Comment on above: Performed By: #### Amy HEAS, INSLN, CPEP, ANKUR, HCV1, MADYSON, GEOVANNA, GGT, PTH #### [place] [address] #### 625901, VIDH, 090794, GFR, MG, JESSICA, CMP, LIP, TSH, ADIFF, CRP, PHOS, CBC, ANEU #### [address] [place] [place], [place] [address] FT4on 11-17-2023 Free T4 [Mass/Vol] 1.25 ng/dL Normal 0.76-1.46 [facility] ([place]) Comment on above: Performed By: #### D HEAS, INSLN, CPEP, ANKUR, HCV1, MADYSON, GEOVANNA, GGT, PTH #### [address] [address] #### 471108, VIDH, 593905, GFR, MG, JESSICA, CMP, LIP, TSH, ADIFF, CRP, PHOS, CBC, ANEU #### [address] [place] [place], [place] [address] LABORATORYOrdered By: SYSTEM SYSTEM on 11-17-2023 Free [...] Food and Drug Administration. Performed At: [facility] [address] [id number] Rayshawn Paul MD Ph:[phone] LIPIDon 11-17-2023 Cholesterol [Mass/Vol] 139 mg/dL Normal 0-200 [facility] ([place]) Comment on above: Result Comment: Chol esterol Reference Interval: Less than 200 Desirable 200-239 Borderline high risk 240 and above High risk Performed By: #### D HEAS, INSLN, CPEP, ANKUR, HCV1, MADYSON, GEOVANNA, GGT, PTH #### [place] [address] #### 576158, VIDH, 521732, GFR, MG, JESSICA, CMP, LIP, TSH, ADIFF, CRP, PHOS, CBC, ANEU #### [address] [address] Cholesterol in HDL [Mass/Vol] 49 mg/dL Normal 40-60 [facility] ([place]) Comment on above: Performed By: #### D HEAS, INSLN, CPEP, ANKUR, HCV1, MADYSON, GEOVANNA, GGT, PTH #### [place] [address] #### 009726, VIDH, 029815, GFR, MG, JESSICA, CMP, LIP, TSH, ADIFF, CRP, PHOS, CBC, ANEU #### [address] [address] Cholesterol in LDL [Mass/Vol] 69 mg/dL Normal 0-130 [facility] ([place]) Comment on above: Performed By: #### D HEAS, INSLN, CPEP, ANKUR, HCV1, MADYSON, GEOVANNA, GGT, PTH #### [place] [address] #### 442108, VIDH, 431445, GFR, MG, JESSICA, CMP, LIP, TSH, ADIFF, CRP, PHOS, CBC, ANEU #### [address] [address] Triglyceride [Mass/Vol] 104 mg/dL Normal 0-150 [facility] ([place]) Comment on above: Result Comment: Trig lyceride Reference Interval: Less than 150 Normal 150-199 Borderline high risk 200-499 High risk 500 or higher Very high risk Performed By: #### D HEAS, INSLN, CPEP, ANKUR, HCV1, MADYSON, GEOVANNA, GGT, PTH #### [place] [address] #### 161453, VIDH, 253263, GFR, MG, JESSICA, CMP, LIP, TSH, ADIFF, CRP, PHOS, CBC, ANEU #### [address] [address] MGon 11-17-2023 Magnesium [Mass/Vol] 1.6 mg/dL Low 1.8-2.4 [facility] ([place]) Comment on above: Performed By: #### D PETRONAAS, INSLN, CPEP, ANKUR, HCV1, MADYSON, GEOVANNA, GGT, PTH #### [place] [address] #### [id number], VIDH, 591426, GFR, MG, JESSICA, CMP, LIP, TSH, ADIFF, CRP, PHOS, CBC, ANEU #### [address] [address] PTHon 11-17-2023 PTH, Intact 17.0 pg/mL Low 18.5-88.0 [facility] ([place]) Comment on above: Performed By: #### D HEAS, INSLN, CPEP, ANKUR, HCV1, MADYSON, GEOVANNA, GGT, PTH #### [place] [address] #### [id number], VIDH, 198470, GFR, MG, JESSICA, CMP, LIP, TSH, ADIFF, CRP, PHOS, CBC, ANEU #### [address] [place] [address] TSHon 11-17-2023 TSH Qn 0.88 m[IU]/L Normal 0.36-3.74 [facility] ([place]) Comment on above: Performed By: #### D HEAS, INSLN, CPEP, ANKUR, HCV1, MADYSON, GEOVANNA, GGT, PTH #### [place] [address] #### [id number], VIDH, 094147, GFR, MG, JESSICA, CMP, LIP, TSH, ADIFF, CRP, PHOS, CBC, ANEU #### [place] [address] VIDHon 11-17-2023 Vit. D 25-Hydroxy 38.4 ng/mL Normal [facility] ([place]) Comment on above: Result Comment: Inte rpretive Values Based on Total 25(OH) Vitamin D: Deficient <20 ng/mL Insufficient 20 - <30 ng/mL Sufficient 30-100 ng/mL Performed By: #### D PETRONAAS, INSLN, CPEP, AKNUR, HCV1, MADYSON, GEOVANNA, GGT, PTH #### [place] [address] #### [id number], VIDH, 553297, GFR, MG, JESSICA, CMP, LIP, TSH, ADIFF, CRP, PHOS, CBC, ANEU #### [place] [id number] aTPOon 11-17-2023 anti-Thyroid Peroxidase 53 units/ml Normal 0-60 [facility] ([place]) Comment on above: Result Comment: No te - New Reference Range in effect 20 Performed By: #### D HEAS, INSLN, CPEP, ANKUR, HCV1, MADYSON, GEOVANNA, GGT, PTH #### [place] [address] #### 214511, VIDH, 205442, GFR, MG, JESSICA, CMP, LIP, TSH, ADIFF, CRP, PHOS, CBC, ANEU #### [place] [id number] Blood type and Indirect anti body screen panel (Bld)on 11-07-2023 ABO group Nom (Bld) A [facility] Blood group antibody screen Ql Negative [facility] D Ag Ql (Bld) Positive [facility] Comment on above: 2nd ABO test require d. Order and Collect VERAB [facility] ABO group Nom (Bld) A Normal [facility] Comment on above: Order Comment: Patie nt admitted for surgery associated with significant blood loss OR per blood bank request. Performed By: #### 3 4532-2 #### YASMIN Loving ([id number]) [facility] ([facility]) [address] [place] [address] Blood group antibody screen Ql Negative Normal [facility] Comment on above: Order Comment: Patie nt admitted for surgery associated with significant blood loss OR per blood bank request. Performed By: #### 3 4532-2 #### YASMIN Loving ([id number]) [facility] ([facility]) [address] [place] [address] D Ag Ql (Bld) Positive [facility] Comment on above: Order Comment: Patie nt admitted for surgery associated with significant blood loss OR per blood bank request. Result Comment: 2nd ABO test required. Order and Collect VERAB Performed By: #### 3 4532-2 #### YASMIN Loving ([id number]) [facility] ([facility]) [address] [place] [address] FL FLUORO IMAGES NO CHARGEon 11-07-2023 FL FLUORO IMAGES NO CHARGE These images are not reportable by radiology and will not be interpreted by Radiologists. Normal [facility] Glucose Test strip manual (B ld) [Mass/Vol]on 11-07-2023 Glucose [Mass/Vol] 159 mg/dL High 74 - 99 mg/dL [facility] Interpretation and review of laboratory results Abnormal [facility] Glucose [Mass/Vol] 159 mg/dL High 74-99 [facility] Comment on above: Performed By: #### 3 4529-8 #### YASMIN Loving ([id number]) [facility] LAB ([facility]) [address] [place] [address] Glucose [Mass/Vol] 162 mg/dL High 74 - 99 mg/dL [facility] Interpretation and review of laboratory results Abnormal [facility] Glucose [Mass/Vol] 162 mg/dL High 74-99 [facility] Comment on above: Performed By: #### 2 341-6 #### YASMIN Loving ([id number]) [facility] ([facility]) [address] [place] [address] Non-installment agent cytology studyon Non-gynecological cytology method study Pathology report.total SEE COMMENT Non-gynecologic Cytology Case: [id number] Authorizing Provider: Braden Hopkins MD MPH Collected: 11/07/2023 1147 Ordering Location: [facility] Received: 11/07/20231952 [facility] OR Pathologist: Rashida Moncada MD Specimen: URETER WASH RIGHT, Right Ureter Fluid for cytology Path report.final diagnosis SEE COMMENT A. URETER WASH RIGHT - Right Ureter Fluid for cytology -- Rare clusters of atypical urothelial cells present; origin from urothelial neoplasm cannot be excluded. -- Please also see concurrent surgical biopsy report [id number]. Laboratory comment SEE COMMENT Slide(s) initially screened by KATJA HUIZAR at [address] [address] By the signature on this report, the [...] Block) A1-1 Pap Stain NGYN ThinPrep Normal [facility] Comment on above: Order Comment: The A PTT is no longer used for monitoring Unfractionated Heparin Therapy. For monitoring Heparin Therapy, use the Heparin Assay. Surgical pathology studyon 0 11-07-2023 Surgical pathology study Pathology report.total SEE COMMENT Surgical Pathology Case: [id number] Authorizing Provider: Braden Hopkins MD MPH Collected: 11/07/2023 1225 Ordering Location: [facility] Received: 11/08/2023 0145 [facility] OR [...] to Dr. Edgar Merino (Department of pathology, [facility] [place] [facility]). The following comment reflects his opinion on [...] is submitted in toto in 2 cassettes. [facility] Comment [...] Status: Final result Abnormal: Yes Resulting Lab: [facility] [address] [place], [place] [id number] CULTURE >100,000 Escherichia coli (Abnormal) SUSCEPTIBILITY Escherichia coli METHOD MICROSCAN ------- AMPICILLIN <=8.000 mcg/mL Susceptible CEFAZOLIN <=2 mcg/mL Susceptible CEFAZOLIN (UNCOMPLICATED UTIS ONLY) <=2 mcg/mL Susceptible CIPROFLOXACIN >2.000 mcg/mL Resistant GENTAMICIN <=2.000 mcg/mL Susceptible NITROFURANTOIN <=32 mcg/mL Susceptible PIPERACILLIN/TAZOBAC FARLEY <=8.000 mcg/mL Susceptible TRIMETHOPRIM/SULFAME THOXAZOLE <=2/38 mcg/mL Susceptible Abnormal [facility] Comment on above: Performed By: #### 6 30-4 #### YASMIN Loving ([id number]) [facility] ([facility]) [address] [place], [place] [id number] Basic metabolic 2000 panelon 11-03-2023 Anion gap [Moles/Vol] 15 mmol/L Normal 10-20 [facility] Comment on above: Performed By: #### 2 4321-2 #### YASMIN Loving ([id number]) [facility] ([facility]) [address] [place] [address], [place] [address] Calcium [Mass/Vol] 9.9 mg/dL Normal 8.6-10.6 [facility] Comment on above: Performed By: #### 2 4321-2 #### YASMIN MCKENZIE L ([id number]) [facility] ([facility]) [address] [place] [address] Chloride [Moles/Vol] 102 mmol/L Normal 98-107 [facility] Comment on above: Performed By: #### 2 4321-2 #### YASMIN MCKENZIE L ([id number]) [facility] ([facility]) [address] [place] [address] CO2 [Moles/Vol] 27 mmol/L Normal 21-32 [facility] Comment on above: Performed By: #### 2 4321-2 #### YASMIN MCKENZIE L ([id number]) [facility] ([facility]) [address] [place] [address] Creatinine [Mass/Vol] 0.77 mg/dL Normal 0.50-1.05 [facility] Comment on above: Performed By: #### 2 4321-2 #### YASMIN MCKENZIE L ([id number]) [facility] ([facility]) [address] [place] [address] Glomerular filtration rate/1.73 sq M.predicted 80 mL/min/1.73m*2 Normal >60 [facility] Comment on above: Result Comment: Calc ulations of estimated GFR are performed using the 2020 CKD-EPI Study Refit equation without the race variable for the IDMS-Traceable creatinine methods. https://jasn.asnjournals.org/content/early//ASN.544 8606385 Performed By: #### 2 4321-2 #### YASMIN MCKENZIE L ([id number]) [facility] ([facility]) [address] [place] [address] Glucose [Mass/Vol] 148 mg/dL High 74-99 [facility] Comment on above: Performed By: #### 2 4321-2 #### YASMIN Loving (25435) [facility] ([facility]) [address] [place] [address] Potassium [Moles/Vol] 4.8 mmol/L Normal 3.5-5.3 [facility] Comment on above: Performed By: #### 2 4321-2 #### YASMIN Loving (97851) [facility] ([facility]) [address] [place] [address] Sodium [Moles/Vol] 139 mmol/L Normal 136-145 [facility] Comment on above: Performed By: #### 2 4321-2 #### YASMIN Loving (27313) [facility] ([facility]) [address] [place] [address] Urea nitrogen [Mass/Vol] 28 mg/dL High 6-23 [facility] Comment on above: Performed By: #### 2 4321-2 #### YASMIN Loving (73519) [facility] ([facility]) [address] [place] [address] CBC panel Auto (Bld)on 11-02 Erythrocyte distribution width (RBC) [Ratio] 13.9 % Normal 11.5-14.5 [facility] Comment on above: Performed By: #### 5 8410-2 #### YASMIN Loving (67263) [facility] ([facility]) [address] [place] [address] Hematocrit (Bld) [Volume fraction] 46.8 % High 36.0-46.0 [facility] Comment on above: Performed By: #### 5 8410-2 #### YASMIN Loving (89878) [facility] ([facility]) [address] [place] [address] Hemoglobin (Bld) [Mass/Vol] 14.9 g/dL Normal 12.0-16.0 [facility] Comment on above: Performed By: #### 5 8410-2 #### YASMIN Loving (55750) [facility] ([facility]) [address] [place] [address] MCH (RBC) [Entitic mass] 28.5 pg Normal 26.0-34.0 [facility] Comment on above: Performed By: #### 5 8410-2 #### YASMIN Loving (48982) [facility] ([facility]) [address] [place] [address] MCHC (RBC) [Mass/Vol] 31.8 g/dL Low 32.0-36.0 [facility] Comment on above: Performed By: #### 5 8410-2 #### YASMIN Loving (56686) [facility] ([facility]) [address] [place] [address] MCV (RBC) [Entitic vol] 90 fL Normal 80-100 [facility] Comment on above: Performed By: #### 5 8410-2 #### YASMIN Loving (21848) [facility] ([facility]) [address] [place] [address] Nucleated RBC/100 WBC (Bld) [Ratio] 0.0 /100 WBCs Normal 0.0-0.0 [facility] Comment on above: Performed By: #### 5 8410-2 #### YASMIN Loving (77847) [facility] ([facility]) [address] [place] [address] Platelets (Bld) [#/Vol] 336 x10*3/uL Normal 150-450 [facility] Comment on above: Performed By: #### 5 8410-2 #### YASMIN Loving (05981) [facility] ([facility]) [address] [place] [address]2668 RBC (Bld) [#/Vol] 5.23 x10*6/uL High 4.00-5.20 [facility] Comment on above: Performed By: #### 5 8410-2 #### YASMIN Loving (58030) [facility] ([facility]) [address] [place] [phone] WBC (Bld) [#/Vol] 13.0 x10*3/uL High 4.4-11.3 [facility] Comment on above: Performed By: #### 5 8410-2 #### YASMIN Loving (46390) [facility] ([facility]) [address] [place] [phone] ECG 12-LEADon 11-03-2023 ECG 12-LEAD Ventricular Rate 88 Atrial Rate 88 P-R Interval 130 QRS Duration 70 Q-T Interval 336 QTC Calculation(Bazett) 406 P [place] 53 R [place] 48 T [place] 53 QRS Count 15 Q Onset 225 P Onset 160 P Offset 208 T Offset 393 QTC Fredericia 381 Diagnosis Normal sinus rhythm with sinus arrhythmia Possible Left atrial enlargement Borderline ECG No previous ECGs available Confirmed by Je Smart ([id number]) on 11/09/2023 10:07:53 PM Normal [facility] HbA1c (Bld) [Mass fraction]o n 11-03-2023 Average glucose Estimated from glycated hemoglobin (Bld) [Mass/Vol] 197 mg/dL Normal Not Established [facility] Comment on above: Order Comment: Diagn osis of Diabetes-Adults Non-Diabetic: < or = 5.6% Increased risk for developing diabetes: 5.7-6.4% Diagnostic of diabetes: > or = 6.5% Monitoring of Diabetes Age (y)....................... Therapeutic Goal (%) Adults: >18.........................<7.0 Pediatrics: 13-18...................<7.5 Pediatrics: 7-12....................<8.0 Pediatrics: 0-6..................... 7.5-8.5 [employer]. Diabetes Care 33(S1), Jun 2009 Performed By: #### 4 548-4 #### YASMIN Loving (91403) [facility] ([facility]) [address] [place] [address]25 Hemoglobin A1c/Hemoglobin.to tianna 11-03-2023 HbA1c (Bld) [Mass fraction] 8.5 % High see below [facility] Comment on above: Order Comment: Diagn osis of Diabetes-Adults Non-Diabetic: < or = 5.6% Increased risk for developing diabetes: 5.7-6.4% Diagnostic of diabetes: > or = 6.5% Monitoring of Diabetes Age (y)....................... Therapeutic Goal (%) Adults: >18.........................<7.0 Pediatrics: 13-18...................<7.5 Pediatrics: 7-12....................<8.0 Pediatrics: 0-6..................... 7.5-8.5 [employer]. Diabetes Care 33(S1)Jun 2009 Performed By: #### 4 548-4 #### YASMIN Loving (83381) [facility] ([facility]) [address] [place] [address] PT and aPTT panel Coag (PPP) on 11-03-2023 aPTT Coag (PPP) [Time] 37 s Normal 27-38 [facility] Comment on above: Order Comment: The A PTT is no longer used for monitoring Unfractionated Heparin Therapy. For monitoring Heparin Therapy, use the Heparin Assay. Performed By: #### 3 4529-8 #### YASMIN Loving (99741) [facility] ([facility]) [address] [place] [address] 66847 INR Coag (PPP) [Relative time] 1.1 Normal 0.9-1.1 [facility] Comment on above: Order Comment: The A PTT is no longer used for monitoring Unfractionated Heparin Therapy. For monitoring Heparin Therapy, use the Heparin Assay. Performed By: #### 3 4529-8 #### YASMIN Loving (86315) [facility] ([facility]) [address] [place] [address] 19199 PT Coag (PPP) [Time] 12.4 s Normal 9.8-12.8 [facility] Comment on above: Order Comment: The A PTT is no longer used for monitoring Unfractionated Heparin Therapy. For monitoring Heparin Therapy, use the Heparin Assay. Performed By: #### 3 4529-8 #### YASMIN Loving (48576) [facility] ([facility]) [address] [place] [address] 29593 Urinalysis complete W Reflex Culture panel (U)on 11-03-2023 Appearance (U) Turbid Normal Clear [facility] Comment on above: Performed By: #### 5 8077-9 #### YASMIN Loving (92646) [facility] ([facility]) [address] [place] [address] 18726 Bilirubin (U) [Mass/Vol] Negative Normal NEGATIVE [facility] Comment on above: Performed By: #### 5 8077-9 #### YASMIN Loving (19200) [facility] ([facility]) [address] [place] [address] 11040 Color (U) Light-Yellow Normal Light-Yellow, Yellow, Dark-Yellow [facility] Comment on above: Performed By: #### 5 8077-9 #### YASMIN Loving (01993) [facility] ([facility]) [address] [place] [address] 16733 Glucose Auto test strip (U) [Mass/Vol] Normal Normal Normal [facility] Comment on above: Performed By: #### 5 8077-9 #### YASMIN Loving (97860) [facility] ([facility]) [address] [place] [address] 84881 Ketones (U) [Mass/Vol] Negative Normal NEGATIVE [facility] Comment on above: Performed By: #### 5 8077-9 #### YASMIN Loving (23501) [facility] ([facility]) [address] [place] [address] 36041 Leukocyte esterase Auto test strip Ql (U) 500 [place]/???L Abnormal NEGATIVE [facility] Comment on above: Performed By: #### 5 8077-9 #### YASMIN Loving (12719) [facility] ([facility]) [address] [place] [address] 08484 Nitrite Auto test strip Ql (U) 1+ Abnormal NEGATIVE [facility] Comment on above: Performed By: #### 5 8077-9 #### YASMIN Loving (25728) [facility] ([facility]) [address] [place] [address] 37551 pH (U) 6.0 [pH] Normal 5.0, 5.5, 6.0, 6.5, 7.0, 7.5, 8.0 [facility] Comment on above: Performed By: #### 5 8077-9 #### YASMIN Loving (23778) [facility] ([facility]) [address] [place] [address] 99629 Protein (U) [Mass/Vol] 30 (1+) Abnormal NEGAT TOÑA, 10 (TRACE), 20 (TRACE) [facility] Comment on above: Performed By: #### 5 8077-9 #### YASMIN Loving (41739) [facility] ([facility]) [address] [place] [address] 87539 RBC (U) [#/Vol] 0.2 (2+) Abnormal NEGATIVE [facility] Comment on above: Performed By: #### 5 8077-9 #### YASMIN Loving (83452) [facility] ([facility]) [address] [place] [address] 79043 Specific gravity (U) [Rel density] 1.014 Normal 1.005-1.035 [facility] Comment on above: Performed By: #### 5 8077-9 #### YASMIN Loving (06259) [facility] ([facility]) [address] [place] [address]3716 Urobilinogen (U) [Mass/Vol] Normal Normal Normal [facility] Comment on above: Performed By: #### 5 8077-9 #### YASMIN Loving (18087) [facility] ([facility]) [address] [place] [address] 33531 Urinalysis microscopic panel Auto Ql (U)on 11-03-2023 Bacteria Auto (Urine sed) [#/Area] 1+ /HPF Abnormal NONE SEEN [facility] Comment on above: Performed By: #### 5 3315-8 #### YASMIN Loving (20466) [facility] ([facility]) [address] [place] [address] 54927 Epithelial cells.squamous Auto (Urine sed) [#/Area] 1-9 (SPARSE) Normal Reference range not established. [facility] Comment on above: Performed By: #### 5 3315-8 #### YASMIN Loving (29856) [facility] ([facility]) [address] [place] [address] 22602 RBC Auto (Urine sed) [#/Area] >20 Abnormal NONE, 1-2, 3-5 [facility] Comment on above: Performed By: #### 5 3315-8 #### YASMIN Loving (34674) [facility] ([facility]) [address] [place] [address] 05213 WBC Auto (Urine sed) [#/Area] >50 Abnormal 1-5, NONE [facility] Comment on above: Performed By: #### 5 3315-8 #### YASMIN Loving (92043) [facility] ([facility]) [address] [place] [address]59[address] LABORATORYOrdered By: SYSTEM SYSTEM on 09-22-2023 Magnesium [Mass/Vol] 1.5 mg/dL Low 1.8 - 2 .4 mg/dL AO ADM SS MGon 09-22-2023 Magnesium [Mass/Vol] 1.5 mg/dL Low 1.8-2.4 [facility] ([place]) Comment on above: Performed By: #### D AS, INSLN, CPEP, ANKUR, HCV1, MADYSON, GEOVANNA, GGT, PTH #### [place] [address] #### 960692, VIDH, 059331, GFR, MG, JESSICA, CMP, LIP, TSH, ADIFF, CRP, PHOS, CBC, ANEU #### [address] [address] RENINon 08-28-2023 Renin Activity 2.466 ng/mL/hr Normal 0.167-5.380 [facility] ([place]) Comment on above: Result Comment: This test was developed and its performance characteristics determined by [facility]. It has not been cleared or approved by the Food and Drug Administration. Performed At: [address] [id number] Rayshawn Paul MD Ph:[phone] Performed By: #### Amy RUSSAS, INSLN, CPEP, ANKUR, HCV1, MADYSON, GEOVANNA, GGT, PTH #### [place] [address] #### 146155, VIDH, 721420, GFR, MG, JESSICA, CMP, LIP, TSH, ADIFF, CRP, PHOS, CBC, ANEU #### [address] [address] JBDL0pi 08-28-2023 Vitamin B6 Lvl 3.6 UG/L Normal 3.4-65.2 [facility] ([place]) Comment on above: Result Comment: This test was developed and its performance characteristics determined by [facility]. It has not been cleared or approved by the Food and Drug Administration. Deficiency: <3.4 Marginal: 3.4 - 5.1 Adequate: >5.1 Performed At: [address] [id number] Rayshawn Paul MD Ph:[phone] Performed By: #### Amy HEAS, INSLN, CPEP, ANKUR, HCV1, MADYSON, GEOVANNA, GGT, PTH #### [place] [address] #### 681309, VIDH, 205897, GFR, MG, JESSICA, CMP, LIP, TSH, ADIFF, CRP, PHOS, CBC, ANEU #### [address] [address] .ANATon 08-25-2023 MADYSON Pattern 1 Homogeneous Normal [facility] ([place]) Comment on above: Result Comment: At [facility], an MADYSON titer of less than 160 is not considered suggestive of significant rheumatoid disease. If clinical suspicion is high, suggest repeat testing in 1-2 months. Performed By: #### D HEAS, INSLN, CPEP, ANKUR, HCV1, MADYSON, GEOVANNA, GGT, PTH #### [address] [address] #### [id number], VIDH, 564227, GFR, MG, JESSICA, CMP, LIP, TSH, ADIFF, CRP, PHOS, CBC, ANEU #### [address] [address] MADYSON Titer 1 40 Normal [facility] ([place]) Comment on above: Performed By: #### D HEAS, INSLN, CPEP, ANKUR, HCV1, MADYSON, GEOVANNA, GGT, PTH #### [address] [address] #### 218058, VIDH, 330044, GFR, MG, JESSICA, CMP, LIP, TSH, ADIFF, CRP, PHOS, CBC, ANEU #### [address] [address] ANAon 08-25-2023 MADYSON See Titer Normal Neg 40 [facility]) Comment on above: Result Comment: MADYSON Screen and Titer methodology is an immunofluorescent technique utilizing Hep2 Substrate. Performed By: #### D HEAS, INSLN, CPEP, ANKUR, HCV1, MADYSON, GEOVANNA, GGT, PTH #### [place] [address] #### 071600, VIDH, 293808, GFR, MG, JESSICA, CMP, LIP, TSH, ADIFF, CRP, PHOS, CBC, ANEU #### [address] [address] .Auto Diffon 08-24-2023 Basophil, Absolute 0.1 10 3/mcL Normal 0.0-0.2 [facility] ([place]) Comment on above: Performed By: #### Amy RUSSAS, INSLN, CPEP, ANKUR, HCV1, MADYSON, GEOVANNA, GGT, PTH #### [place] [address] #### 393705, VIDH, 891303, GFR, MG, JESSICA, CMP, LIP, TSH, ADIFF, CRP, PHOS, CBC, ANEU #### [address] [address] Basophils/100 WBC (Bld) 0.5 % Normal 0.0-2.5 [facility] ([place]) Comment on above: Performed By: #### Amy BOWMAN, INSLN, CPEP, ANKUR, HCV1, MADYSON, GEOVANNA, GGT, PTH #### [place] [address] #### 526453, VIDH, 779125, GFR, MG, JESSICA, CMP, LIP, TSH, ADIFF, CRP, PHOS, CBC, ANEU #### [address] [address] Eosinophil, Absolute 0.0 10 3/mcL Normal 0.0-0.4 [facility] ([place]) Comment on above: Performed By: #### Amy RUSSAS, INSLN, CPEP, ANKUR, HCV1, MADYSON, GEOVANNA, GGT, PTH #### [place] [address] #### 721403, VIDH, 130269, GFR, MG, JESSICA, CMP, LIP, TSH, ADIFF, CRP, PHOS, CBC, ANEU #### [address] [address] Eosinophils/100 WBC (Bld) 0.0 % Normal 0.0-7.0 [facility] ([place]) Comment on above: Performed By: #### Amy HEAS, INSLN, CPEP, ANKUR, HCV1, MADYSON, GEOVANNA, GGT, PTH #### [place] [address] #### 631424, VIDH, 482309, GFR, MG, JESSICA, CMP, LIP, TSH, ADIFF, CRP, PHOS, CBC, ANEU #### [address] [address] Lymphocyte, Absolute 2.6 10 3/mcL Normal 0.8-3.9 [facility] ([place]) Comment on above: Performed By: #### D HEAS, INSLN, CPEP, ANKUR, HCV1, MADYSON, GEOVANNA, GGT, PTH #### [place] [address] #### 196785, VIDH, 891034, GFR, MG, JESSICA, CMP, LIP, TSH, ADIFF, CRP, PHOS, CBC, ANEU #### [address] [address] Lymphocytes/100 WBC (Bld) 17.4 % Normal 10.0-50.0 [facility] ([place]) Comment on above: Performed By: #### Amy HEAS, INSLN, CPEP, ANKUR, HCV1, MADYSON, GEOVANNA, GGT, PTH #### [place] [address] #### 303771, VIDH, 509780, GFR, MG, JESSICA, CMP, LIP, TSH, ADIFF, CRP, PHOS, CBC, ANEU #### [address] [address] Monocyte, Absolute 0.7 10 3/mcL Normal 0.2-1.0 [facility] ([place]) Comment on above: Performed By: #### D HEAS, INSLN, CPEP, ANKUR, HCV1, MADYSON, GEOVANNA, GGT, PTH #### [place] [address] #### 322990, VIDH, 487254, GFR, MG, JESSICA, CMP, LIP, TSH, ADIFF, CRP, PHOS, CBC, ANEU #### [address] [address] Monocytes/100 WBC (Bld) 4.5 % Normal 1.7-13.0 A [facility] ([place]) Comment on above: Performed By: #### D HEAS, INSLN, CPEP, ANKUR, HCV1, MADYSON, GEOVANNA, GGT, PTH #### [address] [address] #### 618242, VIDH, 411681, GFR, MG, JESSICA, CMP, LIP, TSH, ADIFF, CRP, PHOS, CBC, ANEU #### [address] [address] Neutrophils/100 WBC (Bld) 77.6 % Normal 37.0-80.0 [facility] ([place]) Comment on above: Performed By: #### Amy RUSSAS, INSLN, CPEP, ANKUR, HCV1, MADYSON, GEOVANNA, GGT, PTH #### [place] [id number] #### 526374, VIDH, 225843, GFR, MG, JESSICA, CMP, LIP, TSH, ADIFF, CRP, PHOS, CBC, ANEU #### [address] [address] .GFRon 08-24-2023 GFR 62 ml/min/1.73sqm Normal [facility] ([place]) Comment on above: Result Comment: GFR Population [...] ANKUR, HCV1, MADYSON, GEOVANNA, GGT, PTH #### [address] [address] #### 528973, VIDH, 520493, GFR, MG, JESSICA, CMP, LIP, TSH, ADIFF, CRP, PHOS, CBC, ANEU #### [address] [address] GFR Non- 51 ml/min/1.73sqm Normal [facility] ([place]) Comment on above: Result Comment: GFR Population [...] ANKUR, HCV1, MADYSON, GEOVANNA, GGT, PTH #### [place] [address] #### 637064, VIDH, 697464, GFR, MG, JESSICA, CMP, LIP, TSH, ADIFF, CRP, PHOS, CBC, ANEU #### [address] [address] .NEUABSon 08-24-2023 Neutrophil, Absolute 11.4 10 3/mcL High 2.9-6.2 A [facility] ([place]) Comment on above: Performed By: #### Amy HEAS, INSLN, CPEP, ANKUR, HCV1, MADYSON, GEOVANNA, GGT, PTH #### [place] [address] #### 675940, VIDH, 691986, GFR, MG, JESSICA, CMP, LIP, TSH, ADIFF, CRP, PHOS, CBC, ANEU #### [address] [address] AMYon 08-24-2023 Amylase [Catalytic activity/Vol] 47 U/L Normal 25-115 [facility] ([place]) Comment on above: Performed By: #### D HEAS, INSLN, CPEP, ANKUR, HCV1, MADYSON, GEOVANNA, GGT, PTH #### [place] [address] #### [id number], VIDH, 407840, GFR, MG, JESSICA, CMP, LIP, TSH, ADIFF, CRP, PHOS, CBC, ANEU #### [address] [address] CBCon 08-24-2023 Erythrocyte distribution width (RBC) [Ratio] 14.3 % Normal 11.5-14.5 [facility] ([place]) Comment on above: Performed By: #### Amy BOWMAN, INSLN, CPEP, ANKUR, HCV1, MADYSON, GEOVANNA, GGT, PTH #### [place] [address] #### [id number], VIDH, [id number], GFR, MG, JESSICA, CMP, LIP, TSH, ADIFF, CRP, PHOS, CBC, ANEU #### [place] [id number] Hematocrit (Bld) [Volume fraction] 37.0 % Normal 37.0-47.0 [facility] ([place]) Comment on above: Performed By: #### Amy BOWMAN, INSLN, CPEP, ANKUR, HCV1, MADYSON, GEOVANNA, GGT, PTH #### [place] [address] #### [id number], VIDH, 393780, GFR, MG, JESSICA, CMP, LIP, TSH, ADIFF, CRP, PHOS, CBC, ANEU #### [address] [address] Hgb 12.7 G/dL Normal 12.0-16.0 [facility] ([place]) Comment on above: Performed By: #### D PETRONAAS, INSLN, CPEP, ANKUR, HCV1, MADYSON, GEOVANNA, GGT, PTH #### [place] [address] #### [id number], VIDH, 662793, GFR, MG, JESSICA, CMP, LIP, TSH, ADIFF, CRP, PHOS, CBC, ANEU #### [address] [address] MCH (RBC) [Entitic mass] 30.7 pg Normal 27.0-31.2 [facility] ([place]) Comment on above: Performed By: #### Amy RUSSAS, INSLN, CPEP, ANKUR, HCV1, MADYSON, GEOVANNA, GGT, PTH #### [place] [address] #### [id number], VIDH, 649001, GFR, MG, JESSICA, CMP, LIP, TSH, ADIFF, CRP, PHOS, CBC, ANEU #### [address] [address] MCHC 34.3 G/dL Normal 33.0-37.0 [facility] ([place]) Comment on above: Performed By: #### Amy BOWAMN, INSLN, CPEP, ANKUR, HCV1, MADYSON, GEOVANNA, GGT, PTH #### [place] [address] #### [id number], VIDH, 392335, GFR, MG, JESSICA, CMP, LIP, TSH, ADIFF, CRP, PHOS, CBC, ANEU #### [address] [address] MCV (RBC) [Entitic vol] 89.4 fL Normal 80.0-94.0 [facility] ([place]) Comment on above: Performed By: #### Amy BOWMAN, INSLN, CPEP, ANKUR, HCV1, MADYSON, GEOVANNA, GGT, PTH #### [place] [address] #### [id number], VIDH, 298522, GFR, MG, JESSICA, CMP, LIP, TSH, ADIFF, CRP, PHOS, CBC, ANEU #### [address] [address] Platelet 386 10 3/mcL Normal 130-400 [facility] ([place]) Comment on above: Performed By: #### Amy RUSSAS, INSLN, CPEP, ANKUR, HCV1, MADYSON, GEOVANNA, GGT, PTH #### [place] [address] #### [id number], VIDH, 516211, GFR, MG, JESSICA, CMP, LIP, TSH, ADIFF, CRP, PHOS, CBC, ANEU #### [address] [address] Platelet mean volume (Bld) [Entitic vol] 7.5 fL Normal 7.4-10.4 [facility] ([place]) Comment on above: Performed By: #### Amy HEAS, INSLN, CPEP, ANKUR, HCV1, MADYSON, GEOVANNA, GGT, PTH #### [address] [address] #### 515654, VIDH, 113917, GFR, MG, JESSICA, CMP, LIP, TSH, ADIFF, CRP, PHOS, CBC, ANEU #### [address] [address] RBC 4.14 10 6/mcL Low 4.20-5.40 [facility] ([place]) Comment on above: Performed By: #### Amy RUSSAS, INSLN, CPEP, ANKUR, HCV1, MADYSON, GEOVANNA, GGT, PTH #### [address] [address] #### 017609, VIDH, 455437, GFR, MG, JESSICA, CMP, LIP, TSH, ADIFF, CRP, PHOS, CBC, ANEU #### [address] [address] WBC 14.7 10 3/mcL High 4.6-10.8 [facility] ([place]) Comment on above: Performed By: #### Amy HEAS, INSLN, CPEP, ANKUR, HCV1, MADYSON, GEOVANNA, GGT, PTH #### [address] [address] #### 595901, VIDH, 892089, GFR, MG, JESSICA, CMP, LIP, TSH, ADIFF, CRP, PHOS, CBC, ANEU #### [address] [address] CMPon 08-24-2023 Albumin Level 3.6 G/dL Normal 3.4-4.8 [facility] ([place]) Comment on above: Performed By: #### D HEAS, INSLN, CPEP, ANKUR, HCV1, MADYSON, GEOVANNA, GGT, PTH #### [place] [address] #### 040617, VIDH, 503104, GFR, MG, JESSICA, CMP, LIP, TSH, ADIFF, CRP, PHOS, CBC, ANEU #### [address] [address] Albumin/Globulin [Mass ratio] 0.9 {ratio} Low 1.1-2.5 [facility] ([place]) Comment on above: Performed By: #### D PETRONAAS, INSLN, CPEP, ANKUR, HCV1, MADYSON, GEOVANNA, GGT, PTH #### [place] [address] #### 847870, VIDH, 439141, GFR, MG, JESSICA, CMP, LIP, TSH, ADIFF, CRP, PHOS, CBC, ANEU #### [address] [address] ALP [Catalytic activity/Vol] 60 U/L Normal 40-135 [facility] ([place]) Comment on above: Performed By: #### D PETRONAAS, INSLN, CPEP, ANKUR, HCV1, MADYSON, GEOVANNA, GGT, PTH #### [place] [address] #### 319607, VIDH, 638683, GFR, MG, JESSICA, CMP, LIP, TSH, ADIFF, CRP, PHOS, CBC, ANEU #### [address] [address] ALT [Catalytic activity/Vol] 20 U/L Normal 14-59 [facility] ([place]) Comment on above: Performed By: #### D HEAS, INSLN, CPEP, ANKUR, HCV1, MADYSON, GEOVANNA, GGT, PTH #### [place] [address] #### 396703, VIDH, 884145, GFR, MG, JESSICA, CMP, LIP, TSH, ADIFF, CRP, PHOS, CBC, ANEU #### [address] [address] AST [Catalytic activity/Vol] 16 U/L Normal 10-40 [facility] ([place]) Comment on above: Performed By: #### D HEAS, INSLN, CPEP, ANKUR, HCV1, MADYSON, GEOVANNA, GGT, PTH #### [place] [address] #### 139729, VIDH, 409798, GFR, MG, JESSICA, CMP, LIP, TSH, ADIFF, CRP, PHOS, CBC, ANEU #### [address] [address] Bili Total 0.6 mg/dL Normal 0.2-1.0 [facility] ([place]) Comment on above: Result Comment: Use of this assay is not recommended for patients undergoing treatment with eltrombopag due to the potential for falsely elevated results. Performed By: #### D PETRONAAS, INSLN, CPEP, ANKUR, HCV1, MADYSON, GEOVANNA, GGT, PTH #### [place] [address] #### 279150, VIDH, 385204, GFR, MG, JESSICA, CMP, LIP, TSH, ADIFF, CRP, PHOS, CBC, ANEU #### [address] [address] BUN/Creatinine Ratio 18 ratio Normal 7-27 [facility] ([place]) Comment on above: Performed By: #### D HEAS, INSLN, CPEP, ANKUR, HCV1, MADYSON, GEOVANNA, GGT, PTH #### [place] [address] #### 600258, VIDH, 410324, GFR, MG, JESSICA, CMP, LIP, TSH, ADIFF, CRP, PHOS, CBC, ANEU #### [address] [address] Calcium [Mass/Vol] 9.3 mg/dL Normal 8.4-10.2 [facility] ([place]) Comment on above: Performed By: #### D HEAS, INSLN, CPEP, ANKUR, HCV1, MADYSON, GEOVANNA, GGT, PTH #### [address] [address] #### 719436, VIDH, 687347, GFR, MG, JESSICA, CMP, LIP, TSH, ADIFF, CRP, PHOS, CBC, ANEU #### [address] [address] Chloride [Moles/Vol] 100 mmol/L Normal 98-107 [facility] ([place]) Comment on above: Performed By: #### D HEAS, INSLN, CPEP, ANKUR, HCV1, MADYSON, GEOVANNA, GGT, PTH #### [address] [address] #### 495109, VIDH, 866711, GFR, MG, JESSICA, CMP, LIP, TSH, ADIFF, CRP, PHOS, CBC, ANEU #### [address] [address] CO2 [Moles/Vol] 26 mmol/L Normal 23-31 [facility] ([place]) Comment on above: Performed By: #### D HEAS, INSLN, CPEP, ANKUR, HCV1, MADYSON, GEOVANNA, GGT, PTH #### [place] [address] #### 358427, VIDH, 299649, GFR, MG, JESSICA, CMP, LIP, TSH, ADIFF, CRP, PHOS, CBC, ANEU #### [address] [address] Creatinine [Mass/Vol] 1.05 mg/dL High 0.55-1.02 [facility] ([place]) Comment on above: Performed By: #### D HEAS, INSLN, CPEP, ANKUR, HCV1, MADYSON, GEOVANNA, GGT, PTH #### [place] [address] #### 861101, VIDH, 186382, GFR, MG, JESSICA, CMP, LIP, TSH, ADIFF, CRP, PHOS, CBC, ANEU #### [address] [address] Electrolyte Balance 16.0 mEq/L High 4.0-15.0 [facility] ([place]) Comment on above: Performed By: #### D HEAS, INSLN, CPEP, ANKUR, HCV1, MADYSON, GEOVANNA, GGT, PTH #### [place] [address] #### 543999, VIDH, 583089, GFR, MG, JESSICA, CMP, LIP, TSH, ADIFF, CRP, PHOS, CBC, ANEU #### [address] [address] Globulin 4.0 G/dL Normal [facility] ([place]) Comment on above: Performed By: #### D HEAS, INSLN, CPEP, ANKUR, HCV1, MADYSON, GEOVANNA, GGT, PTH #### [place] [address] #### 920473, VIDH, 311655, GFR, MG, JESSICA, CMP, LIP, TSH, ADIFF, CRP, PHOS, CBC, ANEU #### [address] [address] Glucose [Mass/Vol] 399 mg/dL High 83-110 [facility] ([place]) Comment on above: Performed By: #### D PETRONAAS, INSLN, CPEP, ANKUR, HCV1, MADYSON, GEOVANNA, GGT, PTH #### [place] [address] #### 810457, VIDH, 494678, GFR, MG, JESSICA, CMP, LIP, TSH, ADIFF, CRP, PHOS, CBC, ANEU #### [address] [address] Potassium [Moles/Vol] 5.4 mmol/L High 3.5-5.1 [facility] ([place]) Comment on above: Performed By: #### D HEAS, INSLN, CPEP, ANKUR, HCV1, MADYSON, GEOVANNA, GGT, PTH #### [place] [address] #### 920743, VIDH, 039150, GFR, MG, JESSICA, CMP, LIP, TSH, ADIFF, CRP, PHOS, CBC, ANEU #### [address] [address] Sodium [Moles/Vol] 142 mmol/L Normal 136-145 [facility] ([place]) Comment on above: Performed By: #### D HEAS, INSLN, CPEP, ANKUR, HCV1, MADYSON, GEOVANNA, GGT, PTH #### [address] [address] #### 704861, VIDH, 721475, GFR, MG, JESSICA, CMP, LIP, TSH, ADIFF, CRP, PHOS, CBC, ANEU #### [address] [address] Total Protein 7.6 G/dL Normal 6.4-8.2 [facility] ([place]) Comment on above: Performed By: #### D PETRONAAS, INSLN, CPEP, ANKUR, HCV1, MADYSON, GEOVANNA, GGT, PTH #### [place] [address] #### 007963, VIDH, 107371, GFR, MG, JESSICA, CMP, LIP, TSH, ADIFF, CRP, PHOS, CBC, ANEU #### [address] [address] Urea nitrogen [Mass/Vol] 19 mg/dL High 7-18 [facility] ([place]) Comment on above: Performed By: #### Amy RUSSAS, INSLN, CPEP, ANKUR, HCV1, MADYSON, GEOVANNA, GGT, PTH #### [place] [address] #### 135782, VIDH, 588015, GFR, MG, JESSICA, CMP, LIP, TSH, ADIFF, CRP, PHOS, CBC, ANEU #### [address] [address] CORTon 08-24-2023 Cortisol Level 32.1 mcg/dL Normal [facility] ([place]) Comment on above: Result Comment: Ankur isol AM Reference Range 6.5-26.0 mcg/dL Cortisol PM Reference Range 3.5-15.0 mcg/dL Performed By: #### D HEAS, INSLN, CPEP, ANKUR, HCV1, MADYSON, GEOVANNA, GGT, PTH #### [place] [address] #### 515635, VIDH, 833189, GFR, MG, JESSICA, CMP, LIP, TSH, ADIFF, CRP, PHOS, CBC, ANEU #### [address] [address] CPEPon 08-24-2023 C-Peptide 1.93 ng/mL Normal 0.81-3.85 [facility] ([place]) Comment on above: Performed By: #### D HEAS, INSLN, CPEP, ANKUR, HCV1, MADYSON, GEOVANNA, GGT, PTH #### [place] [address] #### 164539, VIDH, 132373, GFR, MG, JESSICA, CMP, LIP, TSH, ADIFF, CRP, PHOS, CBC, ANEU #### [place] [id number] CRPon 08-24-2023 C-Reactive Protein 0.9 mg/dL High 0.0-0.3 [facility] ([place]) Comment on above: Performed By: #### D PETRONAAS, INSLN, CPEP, ANKUR, HCV1, MADYSON, GEOVANNA, GGT, PTH #### [place] [address] #### 394730, VIDH, 996531, GFR, MG, JESSICA, CMP, LIP, TSH, ADIFF, CRP, PHOS, CBC, ANEU #### [address] [address] DHEASon 08-24-2023 DHEA-SO4 207.62 mcg/dL Normal 25.90-460.20 [facility] ([place]) Comment on above: Result Comment: No te - New Reference Range in effect 20 Performed By: #### D HEAS, INSLN, CPEP, ANKUR, HCV1, MADYSON, GEOVANNA, GGT, PTH #### [place] [address] #### 113325, VIDH, 636456, GFR, MG, JESSICA, CMP, LIP, TSH, ADIFF, CRP, PHOS, CBC, ANEU #### [address] [address] GGTon 08-24-2023 Gamma GT 21 U/L Normal 5-55 [facility] ([place]) Comment on above: Performed By: #### D HEAS, INSLN, CPEP, ANKUR, HCV1, MADYSON, GEOVANNA, GGT, PTH #### [place] [address] #### 619031, VIDH, 972227, GFR, MG, JESSICA, CMP, LIP, TSH, ADIFF, CRP, PHOS, CBC, ANEU #### [place] [id number] HCVon 08-24-2023 Hep C Ab Non-Reactive Normal Non-Reactive [facility] ([place]) Comment on above: Performed By: #### D HEAS, INSLN, CPEP, ANKUR, HCV1, MADYSON, GEOVANNA, GGT, PTH #### [place] [address] #### 070095, VIDH, 208116, GFR, MG, JESSICA, CMP, LIP, TSH, ADIFF, CRP, PHOS, CBC, ANEU #### [address] [address] Hep C Ab Int Normal [facility] ([place]) Comment on above: Result Comment: Nonr eactive: [...] ANKUR, HCV1, MADYSON, GEOVANNA, GGT, PTH #### [place] [address] #### 436795, VIDH, 850050, GFR, MG, JESSICA, CMP, LIP, TSH, ADIFF, CRP, PHOS, CBC, ANEU #### [place] [id number] INSLNon 08-24-2023 Insulin 4.00 munit/L Normal 2.60-37.60 [facility] ([place]) Comment on above: Performed By: #### D HEAS, INSLN, CPEP, ANKUR, HCV1, MADYSON, GEOVANNA, GGT, PTH #### [facility] [address] [place] [address] #### 895654, VIDH, 812361, GFR, MG, JESSICA, CMP, LIP, TSH, ADIFF, CRP, PHOS, CBC, ANEU #### [place] [id number] [place], [place] [address] LABORATORYOrdered By: SYSTEM SYSTEM on 08-24-2023 25-hydroxyvitamin [...] 08-24-2023 Lipase Level 84 U/L High 16-77 [facility] ([place]) Comment on above: Performed By: #### D HEAS, INSLN, CPEP, ANKUR, HCV1, MADYSON, GEOVANNA, GGT, PTH #### [place] [address] #### 178039, VIDH, 998492, GFR, MG, JESSICA, CMP, LIP, TSH, ADIFF, CRP, PHOS, CBC, ANEU #### [address] [address] MGon 08-24-2023 Magnesium [Mass/Vol] 1.5 mg/dL Low 1.8-2.4 [facility] ([place]) Comment on above: Performed By: #### D HEAS, INSLN, CPEP, ANKUR, HCV1, MADYSON, GEOVANNA, GGT, PTH #### [place] [address] #### 558413, VIDH, 862453, GFR, MG, JESSICA, CMP, LIP, TSH, ADIFF, CRP, PHOS, CBC, ANEU #### [address] [address] PHOSon 08-24-2023 Phosphate [Mass/Vol] 3.2 mg/dL Normal 2.3-4.1 [facility] ([place] Comment on above: Performed By: #### D HEAS, INSLN, CPEP, ANKUR, HCV1, MADYSON, GEOVANNA, GGT, PTH #### [place] [address] #### 051729, VIDH, 115452, GFR, MG, JESSICA, CMP, LIP, TSH, ADIFF, CRP, PHOS, CBC, ANEU #### [address] [address] PTHon 08-24-2023 PTH, Intact 13.5 pg/mL Low 18.5-88.0 [facility] ([place]) Comment on above: Performed By: #### D PETRONAAS, INSLN, CPEP, ANKUR, HCV1, MADYSON, GEOVANNA, GGT, PTH #### [place] [address] #### 341540, VIDH, 709315, GFR, MG, JESSICA, CMP, LIP, TSH, ADIFF, CRP, PHOS, CBC, ANEU #### [place] [id number] TSHon 08-24-2023 TSH Qn 0.68 m[IU]/L Normal 0.36-3.74 [facility] ([place]) Comment on above: Performed By: #### D COLBY, INSLN, CPEP, ANKUR, HCV1, MADYSON, GEOVANNA, GGT, PTH #### [place] [address] #### 184713, VIDH, 080643, GFR, MG, JESSICA, CMP, LIP, TSH, ADIFF, CRP, PHOS, CBC, ANEU #### [place] [id number] VIDHon 08-24-2023 Vit. D 25-Hydroxy 47.7 ng/mL Normal [facility] ([place]) Comment on above: Result Comment: Inte rpretive Values Based on Total 25(OH) Vitamin D: Deficient <20 ng/mL Insufficient 20 - <30 ng/mL Sufficient 30-100 ng/mL Performed By: #### D PETRONAAS, INSLN, CPEP, ANKUR, HCV1, MADYSON, GEOVANNA, GGT, PTH #### [place] [address] #### 036410, VIDH, 793850, GFR, MG, JESSICA, CMP, LIP, TSH, ADIFF, CRP, PHOS, CBC, ANEU #### [address] [address] Absolute lymphocyte countOrd ered By: Fabrizio Sanz on 08-21-2023 Lymphocytes Auto (Unsp spec) [#/Vol] 2.73 10*3/uL 0.83-4.51 [facility] Automated lymphocyte count a s percentage of total leukocytesOrdered By: Fabrizio Sanz on 08-21-2023 Lymphocytes/100 WBC Auto (Unsp spec) 19.1 % 19-41 [facility] Basophil percentageOrdered B y: Fabrizio Sanz on 08-21-2023 Basophil percentage 0-5 SEEN /hpf 0-5 [facility] Basophils/100 WBC (Bld) 0.4 % 0-1 [facility] Chloride [Moles/Vol] 101 mmol/L 98-107 [facility] Eosinophils/100 WBC (Bld) 0.0 % 0-5 [facility] Glucose [Mass/Vol] 436 mg/dL 74-106 [facility] Comment on above: Glucose result great er than or equal to 200 mg/dLsuggests DIABETES MELLITUS per A.D.A. criteria. Hemoglobin (Bld) [Mass/Vol] 12.2 g/dL 12.0-15.0 [facility] Monocytes/100 WBC (Bld) 4.4 % 0-10 [facility] Neutrophils (Bld) [#/Vol] 10.8 10*3/uL 2.0-7.7 [facility] Neutrophils/100 WBC (Bld) 75.7 % 47-70 [facility] Potassium [Moles/Vol] 4.7 mmol/L 3.5-5.1 [facility] Comment on above: Moderate Hemolysis, Result may be falsely increased. Sodium [Moles/Vol] 131 mmol/L 136-145 [facility] WBC (Bld) [#/Vol] 14.3 10*3/uL 4.4-11.0 [facility] Bilirubin Test strip Ql (U)O rdered By: Fabrizio Sanz on 08-21-2023 Bilirubin Ql (U) Negative Negative [facility] Determination of erythrocyte mean corpuscular volume (MCV)Ordered By: Fabrizio Sanz on 08-21-2023 MCV (RBC) [Entitic vol] 90.3 fL 81-99 [facility] Erythrocyte distribution wid th ratioOrdered By: Fabrizio Sanz on 08-21-2023 Erythrocyte distribution width (RBC) [Ratio] 13.5 % 11.6-14.6 [facility] Erythrocyte distribution wid th standard deviationOrdered By: Fabrizio Sanz on 08-21-2023 Erythrocyte distribution width (RBC) [Entitic vol] 44.5 fL 35.1-43.9 [facility] Hematocrit Auto (Bld) [Volum e fraction]Ordered By: Fabrizio Sanz on 08-21-2023 Hematocrit (Bld) [Volume fraction] 36.2 % 37-47 [facility] Immature granulocytes/100 WB C Auto (Bld)Ordered By: Fabrizio Sanz on 08-21-2023 Immature granulocytes/100 WBC (Bld) 0.400 % 0.0-0.9 [facility] Comment on above: IG% - Immature Granu locytes (promyelocytes, myelocytes and metamyelocytes) > 1% indicates that a LEFT SHIFT is Present. Ketones Test strip Ql (U)Ord ered By: Fabrizio Sanz on 08-21-2023 Ketones Ql (U) Negative Negative [facility] Laboratory - Chemistry and C hemistry - challengeOrdered By: Fabrizio Sanz on 08-21-2023 CO2 [Moles/Vol] 25.0 mmol/L 21.0-32.0 [facility] Urea nitrogen/Creatinine [Mass ratio] 27.4 mg/mg 10-20 [facility] Laboratory - Hematology and Cell countsOrdered By: Fabrizio Sanz on 08-21-2023 MCH (RBC) [Entitic mass] 30.4 pg 27.0-32.0 [facility] MCHC (RBC) [Mass/Vol] 33.7 g/dL 32-36 [facility] Nucleated RBC/100 WBC (Bld) [Ratio] 0 % 0-5 [facility] Platelet mean volume (Bld) [Entitic vol] 9.0 fL 6.2-12.0 [facility] Platelets (Bld) [#/Vol] 441 10*3/uL 150-450 [facility] Mucus LM Ql (Urine sed)Order ed By: Fabrizio Sanz on 08-21-2023 Mucus Ql (Urine sed) 0 SEEN /hpf [facility] Nitrite Test strip Ql (U)Ord ered By: Fabrizio Sanz on 08-21-2023 Nitrite Ql (U) Negative Negative [facility] No Panel InformationOrdered By: Fabrizio Sanz on 08-21-2023 Urine RBC 10-25 SEEN /hpf 0-5 [facility] Estimated Creatinine Clearance Calc 33.36 ml/min [facility] Estimated GFR (MDRD) Amer 71 mL/min >60 [facility] Comment on above: GFR Calc Estimated GFR (MDRD) Non-Af Amer 58 mL/min >60 [facility] Comment on above: Non- GFR Calc Protein Test strip Ql (U)Ord ered By: Fabrizio Sanz on 08-21-2023 Protein Ql (U) 30 mg/dl Negative [facility] RBC Auto (Bld) [#/Vol]Ordere d By: Fabrizio Sanz on 08-21-2023 RBC (Bld) [#/Vol] 4.01 10*6/uL 4.2-5.4 [facility] Serum or plasma calcium delvis urement (mass/volume)Ordered By: Fabrizio Sanz on 08-21-2023 Calcium [Mass/Vol] 9.0 mg/dL 8.5-10.1 [facility] Serum or plasma creatinine m easurement (mass/volume)Ordered By: Fabrizio Sanz on 08-21-2023 Creatinine [Mass/Vol] 0.98 mg/dL 0.55-1.02 [facility] Comment on above: The validity of the calculated GFR & GFRAA in patients over 70 years has not been determined. Clinical correlation is essential. Serum or plasma urea nitroge n measurement (mass/volume)Ordered By: Fabrizio Sanz on 08-21-2023 Urea nitrogen [Mass/Vol] 27 mg/dL 7-18 [facility] Squamous epithelial cells de tection in urine sediment by light microscopyOrdered By: Fabrizio Sanz on 08-21-2023 Epithelial cells.squamous LM Ql (Urine sed) 0-5 SEEN /hpf 5-10 [facility] Thin prep Papanicolaou smear with manual screeningOrdered By: Fabrizio Sanz on 08-21-2023 Thin prep Papanicolaou smear with manual screening 341 mg/dL 74-106 [facility] Comment on above: MANAGEMENT OF PATIEN T CARE PER NURSING PROTOCOL Thin prep Papanicolaou smear with manual screening 5 5-15 [facility] Urine blood detectionOrdered By: Fabrizio Sanz on 08-21-2023 RBC Ql (U) 250 /ul Negative [facility] Urine clarityOrdered By: Luis Daniel Sanz on 08-21-2023 Clarity (U) Clear Clear [facility] Urine color determinationOrd ered By: Fabrizio Sanz on 08-21-2023 Color (U) Yellow Yellow [facility] Urine glucose detectionOrder ed By: Fabrizio Sanz on 08-21-2023 Glucose Ql (U) 1000 mg/dl Normal [facility] Urine leukocyte esterase det ection by dipstickOrdered By: Fabrizio Sanz on 08-21-2023 Leukocyte esterase Test strip Ql (U) 100 /ul Negative [facility] Urine pHOrdered By: Fabrizio riggins on 08-21-2023 pH (U) 7.0 [pH] 5.0 - 8.0 [facility] Urine sediment bacteria coun t by microscopy (number/high power field)Ordered By: Fabrizio Sanz on 08-21-2023 Bacteria LM.HPF (Urine sed) [#/Area] 0 /[HPF] None Seen [facility] Urine specific gravity measu rementOrdered By: Fabrizio Sanz on 08-21-2023 Specific gravity (U) [Rel density] 1.005 1.002-1.030 [facility] Urine urobilinogen measureme ntOrdered By: Fabrizio Sanz on 08-21-2023 Urobilinogen Ql (U) Normal mg/dl Normal [facility] Basophil percentageOrdered B y: Baldev Gaxiola on 08-10-2023 Chloride [Moles/Vol] 108 mmol/L 98-107 [facility] Glucose [Mass/Vol] 163 mg/dL 74-106 [facility] Comment on above: Fasting Glucose resu lt greater than or equal to 126 mg/dL suggests DIABETES MELLITUS per A.D.A. criteria. Hemoglobin (Bld) [Mass/Vol] 10.6 g/dL 12.0-15.0 [facility] Potassium [Moles/Vol] 3.6 mmol/L 3.5-5.1 [facility] Sodium [Moles/Vol] 140 mmol/L 136-145 [facility] WBC (Bld) [#/Vol] 13.6 10*3/uL 4.4-11.0 [facility] Determination of erythrocyte mean corpuscular volume (MCV)Ordered By: Baldev Gaxiola on 08-10-2023 MCV (RBC) [Entitic vol] 87.8 fL 81-99 [facility] Erythrocyte distribution wid th ratioOrdered By: Baldev Gaxiola on 08-10-2023 Erythrocyte distribution width (RBC) [Ratio] 12.9 % 11.6-14.6 [facility] Erythrocyte distribution wid th standard deviationOrdered By: Baldev Gaxiola on 08-10-2023 Erythrocyte distribution width (RBC) [Entitic vol] 41.5 fL 35.1-43.9 [facility] Hematocrit Auto (Bld) [Volum e fraction]Ordered By: Baldev Gaxiola on 08-10-2023 Hematocrit (Bld) [Volume fraction] 31.7 % 37-47 [facility] Laboratory - Chemistry and C hemistry - challengeOrdered By: Baldev Gaxiola on 08-10-2023 CO2 [Moles/Vol] 24.0 mmol/L 21.0-32.0 [facility] Urea nitrogen/Creatinine [Mass ratio] 16.3 mg/mg 10-20 [facility] - Hematology and Cell countsOrdered By: Baldev Gaxiola on 08-10-2023 MCH (RBC) [Entitic mass] 29.4 pg 27.0-32.0 [facility] MCHC (RBC) [Mass/Vol] 33.4 g/dL 32-36 [facility] Platelet mean volume (Bld) [Entitic vol] 9.3 fL 6.2-12.0 [facility] Platelets (Bld) [#/Vol] 271 10*3/uL 150-450 [facility] No Panel InformationOrdered By: Baldev Gaxiola on 08-10-2023 Estimated Creatinine Clearance Calc 43.82 ml/min [facility] Estimated GFR (MDRD) Amer 99 mL/min >60 [facility] Comment on above: GFR Calc Estimated GFR (MDRD) Non-Af Amer 82 mL/min >60 [facility] Comment on above: Non- GFR Calc RBC Auto (Bld) [#/Vol]Ordere d By: Baldev Gaxiola on 08-10-2023 RBC (Bld) [#/Vol] 3.61 10*6/uL 4.2-5.4 [facility] Serum or plasma calcium delvis urement (mass/volume)Ordered By: Baldev Gaxiola on 08-10-2023 Calcium [Mass/Vol] 8.4 mg/dL 8.5-10.1 [facility] Serum or plasma creatinine m easurement (mass/volume)Ordered By: Baldev Gaxiola on 08-10-2023 Creatinine [Mass/Vol] 0.74 mg/dL 0.55-1.02 [facility] Comment on above: The validity of the calculated GFR & GFRAA in patients over 70 years has not been determined. Clinical correlation is essential. Serum or plasma urea nitroge n measurement (mass/volume)Ordered By: Baldev Gaxiola on 08-10-2023 Urea nitrogen [Mass/Vol] 12 mg/dL 7-18 [facility] Thin prep Papanicolaou smear with manual screeningOrdered By: Hesham Solomon on 08-10-2023 Thin prep Papanicolaou smear with manual screening 333 mg/dL 74-106 [facility] Comment on above: MANAGEMENT OF PATIEN T CARE PER NURSING PROTOCOL Thin prep Papanicolaou smear with manual screeningOrdered By: Baldev Gaxiola on 08-10-2023 Thin prep Papanicolaou smear with manual screening 8 5-15 [facility] Whole blood hemoglobin A1c/t otal hemoglobin ratio (mass fraction)Ordered By: Baldev Gaxiola on 08-07-2023 HbA1c (Bld) [Mass fraction] 12.4 % 3.8-5.6 [facility] Comment on above: Normal < 5.7 % Predi abetic 5.7 - 6.4 % Diabetic >or= 6.5 % Please note range changes. Absolute lymphocyte countOrd ered By: Art Alcaraz on 08-06-2023 Lymphocytes Auto (Unsp spec) [#/Vol] 2.07 10*3/uL 0.83-4.51 [facility] Automated lymphocyte count a s percentage of total leukocytesOrdered By: Art Alcaraz on 08-06-2023 Lymphocytes/100 WBC Auto (Unsp spec) 9.0 % 19-41 [facility] Basophil percentageOrdered B y: Art Alcaraz on 08-06-2023 Basophils/100 WBC (Bld) 0.3 % 0-1 [facility] Eosinophils/100 WBC (Bld) 0.0 % 0-5 [facility] Monocytes/100 WBC (Bld) 4.1 % 0-10 [facility] Neutrophils (Bld) [#/Vol] 19.7 10*3/uL 2.0-7.7 [facility] Neutrophils/100 WBC (Bld) 85.7 % 47-70 [facility] Immature granulocytes/100 WB C Auto (Bld)Ordered By: Art Alcaraz on 08-06-2023 Immature granulocytes/100 WBC (Bld) 0.900 % 0.0-0.9 [facility] Comment on above: IG% - Immature Granu locytes (promyelocytes, myelocytes and metamyelocytes) > 1% indicates that a LEFT SHIFT is Present. Laboratory - Hematology and Cell countsOrdered By: Art Alcaraz on 08-06-2023 Nucleated RBC/100 WBC (Bld) [Ratio] 0 % 0-5 [facility] No Panel InformationOrdered By: Art Alcaraz on 08-06-2023 Troponin I High Sensitivity 835 pg/mL 3.0-54.0 [facility] Comment on above: Critical Result(s) C alled at: 10:09:25 08/06/2023 by: Georgiana Reece to Matias. Results read back by same. Please Note: New Test Units and Gender Specific Reference Ranges. For more information see Policy Stat Procedure Winston High Sensitivity Troponin (TNIH) and attachments. Base excessOrdered By: Kriss Gu on 08-05-2023 Base excess Calc (BldV) [Moles/Vol] -2 mmol/L -1.0-3.5 [facility] Basophil percentageOrdered B y: Virginia Gu on 08-05-2023 Basophil percentage 0 SEEN /hpf 0-5 [facility] Bilirubin [Mass/Vol] 0.60 mg/dL 0.20-1.00 [facility] Comment on above: For patients on eltr ombopag therapy, use of Dimension [place] TBIL is not recommended. Protein [Mass/Vol] 8.2 g/dL 6.4-8.2 [facility] Basophil percentageOrdered B y: Art Alcaraz on 08-05-2023 Basophil percentage 2.6 mg/dL 2.5-4.9 [facility] Bilirubin Test strip Ql (U)O rdered By: Virginia Gu on 08-05-2023 Bilirubin Ql (U) Negative Negative [facility] CO2 (BldV) [Moles/Vol]Ordere d By: Virginia Gu on 08-05-2023 CO2 [Moles/Vol] 24 mmol/L 23-33 [facility] Culture, urineOrdered By: Mario Gu on 08-05-2023 Bacteria identified Cx Nom (U) Escherichia coli [facility] Direct bilirubinOrdered By: Virginia Gu on 08-05-2023 Bilirubin.direct [Mass/Vol] 0.23 mg/dL 0.00-0.30 [facility] Ketones Test strip Ql (U)Ord ered By: Virginia Gu on 08-05-2023 Ketones Ql (U) 5 mg/dl Negative [facility] Laboratory - Chemistry and C hemistry - challengeOrdered By: Virginia Gu on 08-05-2023 HCO3 (Bld) [Moles/Vol] 23 mmol/L 22-26 [facility] ALP [Catalytic activity/Vol] 105 U/L 45-117 [facility] ALT [Catalytic activity/Vol] 23 U/L 13-56 [facility] Globulin (S) [Mass/Vol] 5.0 g/dL 2.2-4.2 [facility] Laboratory - Chemistry and C hemistry - challengeOrdered By: Art Alcaraz on 08-05-2023 Magnesium [Mass/Vol] 1.8 mg/dL 1.6-2.6 [facility] Laboratory - Microbiology an d Antimicrobial susceptibilityOrdered By: Virginia Gu on 08-05-2023 SARS-CoV-2 (COVID-19) RNA DONAVAN+probe Ql (Unsp spec) [facility] Bacteria identified Cx Nom (Bld) Escherichia coli [facility] Bacteria identified 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 [facility] Mucus LM Ql (Urine sed)Order ed By: Virginia Gu on 08-05-2023 Mucus Ql (Urine sed) 0 SEEN /hpf [facility] Nitrite Test strip Ql (U)Ord ered By: Virginia Gu on 08-05-2023 Nitrite Ql (U) Positive Negative [facility] No Panel InformationOrdered By: Virginia Gu on 08-05-2023 Urine RBC 0-5 SEEN /hpf 0-5 [facility] Blood Gas Oxygen Percent 2.0 [facility] Blood Gas Sample Site Not entered [facility] Blood Gas Specimen Type [facility] Oxygen Delivery Device Cannula [facility] PCO2 venousOrdered By: Kriss Gu on 08-05-2023 CO2 (BldV) [Partial pressure] 38.1 mm[Hg] 41-51 [facility] PO2 venousOrdered By: Daxa Gu on 08-05-2023 Oxygen (BldV) [Partial pressure] 56 mm[Hg] 25-40 [facility] Protein Test strip Ql (U)Ord ered By: Virginia Gu on 08-05-2023 Protein Ql (U) 30 mg/dl Negative [facility] Serum or plasma acetone delvis urement (mass/volume)Ordered By: Virginia Gu on 08-05-2023 Acetone [Mass/Vol] MODERATE NEG [facility] Squamous epithelial cells de tection in urine sediment by light microscopyOrdered By: Virginia Gu on 08-05-2023 Epithelial cells.squamous LM Ql (Urine sed) 0 SEEN /hpf 5-10 [facility] Thin prep Papanicolaou smear with manual screeningOrdered By: Virginia Gu on 08-05-2023 Thin prep Papanicolaou smear with manual screening 3.2 g/dL 3.2-5.0 [facility] Thin prep Papanicolaou smear with manual screening 11 U/L 15-37 [facility] Urine blood detectionOrdered By: Virginia Gu on 08-05-2023 RBC Ql (U) 150 /ul Negative [facility] Urine clarityOrdered By: Ida Gu on 08-05-2023 Clarity (U) Clear Clear [facility] Urine color determinationOrd ered By: Virginia Gu on 08-05-2023 Color (U) Yellow Yellow [facility] Urine glucose detectionOrder ed By: Virginia Gu on 08-05-2023 Glucose Ql (U) 1000 mg/dl Normal [facility] Urine leukocyte esterase det ection by dipstickOrdered By: Virginia Gu on 08-05-2023 Leukocyte esterase Test strip Ql (U) 25 /ul Negative [facility] Urine pHOrdered By: Virginia Gu on 08-05-2023 pH (U) 6.5 [pH] 5.0 - 8.0 [facility] Urine sediment bacteria coun t by microscopy (number/high power field)Ordered By: Virginia Gu on 08-05-2023 Bacteria LM.HPF (Urine sed) [#/Area] 1 /[HPF] None Seen [facility] Urine specific gravity measu rementOrdered By: Virginia Gu on 08-05-2023 Specific gravity (U) [Rel density] 1.010 1.002-1.030 [facility] Urine urobilinogen measureme ntOrdered By: Virginia Gu on 08-05-2023 Urobilinogen Ql (U) Normal mg/dl Normal [facility] Venous blood pH measurementO rdered By: Virginia Gu on 08-05-2023 pH (BldV) 7.39 [pH] 7.32-7.42 [facility] Vital signsOrdered By: Kriss Gu on 08-05-2023 Oxygen saturation in Blood 88 % 50-70 [facility] .Auto Diffon 05-05-2023 Basophil, Absolute 0.1 10 3/mcL Normal 0.0-0.2 [facility] ([place]) Comment on above: Performed By: #### D HEAS, INSLN, CPEP, ANKUR, HCV1, MADYSON, GEOVANNA, GGT, PTH #### [address] [address] #### [id number], VIDH, 028918, GFR, MG, JESSICA, CMP, LIP, TSH, ADIFF, CRP, PHOS, CBC, ANEU #### [place] [id number] [place], [place] [address] Basophils/100 WBC (Bld) 0.8 % Normal 0.0-2.5 [facility] ([place]) Comment on above: Performed By: #### D HEAS, INSLN, CPEP, ANKUR, HCV1, MADYSON, GEOVANNA, GGT, PTH #### [place] [address] #### [id number], VIDH, 121969, GFR, MG, JESSICA, CMP, LIP, TSH, ADIFF, CRP, PHOS, CBC, ANEU #### [address] [address] Eosinophil, Absolute 0.0 10 3/mcL Normal 0.0-0.4 [facility] ([place]) Comment on above: Performed By: #### D HEAS, INSLN, CPEP, ANKUR, HCV1, MADYSON, GEOVANNA, GGT, PTH #### [place] [address] #### [id number], VIDH, 326338, GFR, MG, JESSICA, CMP, LIP, TSH, ADIFF, CRP, PHOS, CBC, ANEU #### [address] [address] Eosinophils/100 WBC (Bld) 0.1 % Normal 0.0-7.0 [facility] ([place]) Comment on above: Performed By: #### Amy RUSSAS, INSLN, CPEP, ANKUR, HCV1, MADYSON, GEOVANNA, GGT, PTH #### [place] [address] #### [id number], VIDH, 092263, GFR, MG, JESSICA, CMP, LIP, TSH, ADIFF, CRP, PHOS, CBC, ANEU #### [address] [address] Lymphocyte, Absolute 3.7 10 3/mcL Normal 0.8-3.9 [facility] ([place]) Comment on above: Performed By: #### Amy HEAS, INSLN, CPEP, ANKUR, HCV1, MADYSON, GEOVANNA, GGT, PTH #### [place] [address] #### [id number], VIDH, 235676, GFR, MG, JESSICA, CMP, LIP, TSH, ADIFF, CRP, PHOS, CBC, ANEU #### [address] [address] Lymphocytes/100 WBC (Bld) 28.0 % Normal 10.0-50.0 [facility] ([place]) Comment on above: Performed By: #### D HEAS, INSLN, CPEP, ANKUR, HCV1, MADYSON, GEOVANNA, GGT, PTH #### [place] [address] #### [id number], VIDH, 304319, GFR, MG, JESSICA, CMP, LIP, TSH, ADIFF, CRP, PHOS, CBC, ANEU #### [address] [address] Monocyte, Absolute 0.6 10 3/mcL Normal 0.2-1.0 [facility] ([place]) Comment on above: Performed By: #### D PETRONAAS, INSLN, CPEP, ANKUR, HCV1, MADYSON, GEOVANNA, GGT, PTH #### [place] [address] #### [id number], VIDH, 084707, GFR, MG, JESSICA, CMP, LIP, TSH, ADIFF, CRP, PHOS, CBC, ANEU #### [address] [address] Monocytes/100 WBC (Bld) 4.8 % Normal 1.7-13.0 [facility] ([place]) Comment on above: Performed By: #### D PETRONAAS, INSLN, CPEP, ANKUR, HCV1, MADYSON, GEOVANNA, GGT, PTH #### [place] [address] #### 232294, VIDH, 961079, GFR, MG, JESSICA, CMP, LIP, TSH, ADIFF, CRP, PHOS, CBC, ANEU #### [address] [address] Neutrophils/100 WBC (Bld) 66.3 % Normal 37.0-80.0 [facility] ([place]) Comment on above: Performed By: #### D HEAS, INSLN, CPEP, ANKUR, HCV1, MADYSON, GEOVANNA, GGT, PTH #### [place] [address] #### 067379, VIDH, 671270, GFR, MG, JESSICA, CMP, LIP, TSH, ADIFF, CRP, PHOS, CBC, ANEU #### [address] [address] .GFRon 05-05-2023 GFR 55 ml/min/1.73sqm Normal [facility] ([place]) Comment on above: Result Comment: GFR Population [...] ANKUR, HCV1, MADYSON, GEOVANNA, GGT, PTH #### [place] [address] #### [id number], VIDH, 894341, GFR, MG, JESSICA, CMP, LIP, TSH, ADIFF, CRP, PHOS, CBC, ANEU #### [address] [address] GFR Non- 45 ml/min/1.73sqm Normal [facility] ([place]) Comment on above: Result Comment: GFR Population [...] ANKUR, HCV1, MADYSON, GEOVANNA, GGT, PTH #### [place] [address] #### 479260, VIDH, 527065, GFR, MG, JESSICA, CMP, LIP, TSH, ADIFF, CRP, PHOS, CBC, ANEU #### [address] [address] .NEUABSon 05-05-2023 Neutrophil, Absolute 8.8 10 3/mcL High 2.9-6.2 [facility] ([place]) Comment on above: Performed By: #### Amy BOWMAN, INSLN, CPEP, ANKUR, HCV1, MADYSON, GEOVANNA, GGT, PTH #### [place] [address] #### 481385, VIDH, 930120, GFR, MG, JESSICA, CMP, LIP, TSH, ADIFF, CRP, PHOS, CBC, ANEU #### [address] [address] A1Con 05-05-2023 HbA1c (Bld) [Mass fraction] 7.6 % High 4.3-6.4 [facility] ([place]) Comment on above: Performed By: #### Amy BOWMAN, INSLN, CPEP, ANKUR, HCV1, MADYSON, GEOVANNA, GGT, PTH #### [place] [address] #### 595555, VIDH, 442165, GFR, MG, JESSICA, CMP, LIP, TSH, ADIFF, CRP, PHOS, CBC, ANEU #### [address] [address] CBCon 05-05-2023 Erythrocyte distribution width (RBC) [Ratio] 13.4 % Normal 11.5-14.5 [facility] ([place]) Comment on above: Performed By: #### Amy HEAS, INSLN, CPEP, ANKUR, HCV1, MADYSON, GEOVANNA, GGT, PTH #### [place] [address] #### 655046, VIDH, 353155, GFR, MG, JESSICA, CMP, LIP, TSH, ADIFF, CRP, PHOS, CBC, ANEU #### [address] [address] Hematocrit (Bld) [Volume fraction] 47.7 % High 37.0-47.0 [facility] ([place]) Comment on above: Performed By: #### D HEAS, INSLN, CPEP, ANKUR, HCV1, MADYSON, GEOVANNA, GGT, PTH #### [place] [address] #### 864233, VIDH, 265240, GFR, MG, JESSICA, CMP, LIP, TSH, ADIFF, CRP, PHOS, CBC, ANEU #### [place] [id number] Hgb 16.0 G/dL Normal 12.0-16.0 [facility] ([place]) Comment on above: Performed By: #### D PETRONAAS, INSLN, CPEP, ANKUR, HCV1, MADYSON, GEOVANNA, GGT, PTH #### [place] [address] #### 612063, VIDH, 374894, GFR, MG, JESSICA, CMP, LIP, TSH, ADIFF, CRP, PHOS, CBC, ANEU #### [address] [address] MCH (RBC) [Entitic mass] 30.8 pg Normal 27.0-31.2 [facility] ([place]) Comment on above: Performed By: #### D HEAS, INSLN, CPEP, ANKUR, HCV1, MADYSON, GEOVANNA, GGT, PTH #### [place] [address] #### 244614, VIDH, 654271, GFR, MG, JESSICA, CMP, LIP, TSH, ADIFF, CRP, PHOS, CBC, ANEU #### [address] [address] MCHC 33.5 G/dL Normal 33.0-37.0 [facility] ([place] Comment on above: Performed By: #### D HEAS, INSLN, CPEP, ANKUR, HCV1, MADYSON, GEOVANNA, GGT, PTH #### [place] [address] #### 277930, VIDH, 373296, GFR, MG, JESSICA, CMP, LIP, TSH, ADIFF, CRP, PHOS, CBC, ANEU #### [address] [address] MCV (RBC) [Entitic vol] 91.8 fL Normal 80.0-94.0 [facility] ([place] Comment on above: Performed By: #### D HEAS, INSLN, CPEP, ANKUR, HCV1, MADYSON, GEOVANNA, GGT, PTH #### [place] [address] #### 285434, VIDH, 534805, GFR, MG, JESSICA, CMP, LIP, TSH, ADIFF, CRP, PHOS, CBC, ANEU #### [address] [address] Platelet 275 10 3/mcL Normal 130-400 [facility] ([place]) Comment on above: Performed By: #### D HEAS, INSLN, CPEP, ANKUR, HCV1, MADYSON, GEOVANNA, GGT, PTH #### [place] [address] #### 624301, VIDH, 690533, GFR, MG, JESSICA, CMP, LIP, TSH, ADIFF, CRP, PHOS, CBC, ANEU #### [address] [address] Platelet mean volume (Bld) [Entitic vol] 8.2 fL Normal 7.4-10.4 [facility] ([place]) Comment on above: Performed By: #### D HEAS, INSLN, CPEP, ANKUR, HCV1, MADYSON, GEOVANNA, GGT, PTH #### [place] [address] #### 253986, VIDH, 331996, GFR, MG, JESSICA, CMP, LIP, TSH, ADIFF, CRP, PHOS, CBC, ANEU #### [address] [address] RBC 5.19 10 6/mcL Normal 4.20-5.40 [facility] ([place]) Comment on above: Performed By: #### Amy RUSSAS, INSLN, CPEP, ANKUR, HCV1, MADYSON, GEOVANNA, GGT, PTH #### [place] [address] #### 484507, VIDH, 232070, GFR, MG, JESSICA, CMP, LIP, TSH, ADIFF, CRP, PHOS, CBC, ANEU #### [address] [address] WBC 13.2 10 3/mcL High 4.6-10.8 [facility] ([place]) Comment on above: Performed By: #### Amy RUSSAS, INSLN, CPEP, ANKUR, HCV1, MADYSON, GEOVANNA, GGT, PTH #### [place] [address] #### 770508, VIDH, 377757, GFR, MG, JESSICA, CMP, LIP, TSH, ADIFF, CRP, PHOS, CBC, ANEU #### [address] [address] [facility] Albumin Level 4.2 G/dL Normal 3.4-4.8 [facility] ([place]) Comment on above: Performed By: #### Amy RUSSAS, INSLN, CPEP, ANKUR, HCV1, MADYSON, GEOVANNA, GGT, PTH #### [place] [address] #### 660225, VIDH, 516229, GFR, MG, JESSICA, CMP, LIP, TSH, ADIFF, CRP, PHOS, CBC, ANEU #### [address] [address] Albumin/Globulin [Mass ratio] 1.0 {ratio} Low 1.1-2.5 [facility] ([place]) Comment on above: Performed By: #### Amy RUSSAS, INSLN, CPEP, ANKUR, HCV1, MADYSON, GEOVANNA, GGT, PTH #### [place] [address] #### 153191, VIDH, 414333, GFR, MG, JESSICA, CMP, LIP, TSH, ADIFF, CRP, PHOS, CBC, ANEU #### [address] [address] ALP [Catalytic activity/Vol] 67 U/L Normal 40-135 [facility] ([place]) Comment on above: Performed By: #### D HEAS, INSLN, CPEP, ANKUR, HCV1, MADYSON, GEOVANNA, GGT, PTH #### [place] [address] #### 050324, VIDH, 134255, GFR, MG, JESSICA, CMP, LIP, TSH, ADIFF, CRP, PHOS, CBC, ANEU #### [address] [address] ALT [Catalytic activity/Vol] 18 U/L Normal 14-59 [facility] ([place]) Comment on above: Performed By: #### D HEAS, INSLN, CPEP, ANKUR, HCV1, MADYSON, GEOVANNA, GGT, PTH #### [place] [address] #### 985554, VIDH, 591794, GFR, MG, JESSICA, CMP, LIP, TSH, ADIFF, CRP, PHOS, CBC, ANEU #### [address] [address] AST [Catalytic activity/Vol] 11 U/L Normal 10-40 [facility] ([place] Comment on above: Performed By: #### D HEAS, INSLN, CPEP, ANKUR, HCV1, MADYSON, GEOVANNA, GGT, PTH #### [place] [address] #### 759279, VIDH, 501838, GFR, MG, JESSICA, CMP, LIP, TSH, ADIFF, CRP, PHOS, CBC, ANEU #### [address] [address] Bili Total 0.5 mg/dL Normal 0.2-1.0 [facility] ([place]) Comment on above: Result Comment: Use of this assay is not recommended for patients undergoing treatment with eltrombopag due to the potential for falsely elevated results. Performed By: #### D HEAS, INSLN, CPEP, ANKUR, HCV1, MADYSON, GEOVANNA, GGT, PTH #### [place] [address] #### 709476, VIDH, 856497, GFR, MG, JESSICA, CMP, LIP, TSH, ADIFF, CRP, PHOS, CBC, ANEU #### [address] [address] BUN/Creatinine Ratio 15 ratio Normal 7-27 [facility] ([place] Comment on above: Performed By: #### D HEAS, INSLN, CPEP, ANKUR, HCV1, MADYSON, GEOVANNA, GGT, PTH #### [place] [address] #### 158483, VIDH, 032635, GFR, MG, JESSICA, CMP, LIP, TSH, ADIFF, CRP, PHOS, CBC, ANEU #### [address] [address] Calcium [Mass/Vol] 9.5 mg/dL Normal 8.4-10.2 [facility] ([place]) Comment on above: Performed By: #### D HEAS, INSLN, CPEP, ANKUR, HCV1, MADYSON, GEOVANNA, GGT, PTH #### [place] [address] #### 493531, VIDH, 989762, GFR, MG, JESSICA, CMP, LIP, TSH, ADIFF, CRP, PHOS, CBC, ANEU #### [address] [address] Chloride [Moles/Vol] 101 mmol/L Normal 98-107 [facility] ([place] Comment on above: Performed By: #### D HEAS, INSLN, CPEP, ANKUR, HCV1, MADYSON, GEOVANNA, GGT, PTH #### [place] [address] #### 707633, VIDH, 699419, GFR, MG, JESSICA, CMP, LIP, TSH, ADIFF, CRP, PHOS, CBC, ANEU #### [address] [place] [address] CO2 [Moles/Vol] 27 mmol/L Normal 23-31 [facility] ([place]) Comment on above: Performed By: #### Amy RUSSAS, INSLN, CPEP, ANKUR, HCV1, MADYSON, GEOVANNA, GGT, PTH #### [place] [address] #### 077005, VIDH, 158791, GFR, MG, JESSICA, CMP, LIP, TSH, ADIFF, CRP, PHOS, CBC, ANEU #### [address] [address] Creatinine [Mass/Vol] 1.17 mg/dL High 0.55-1.02 [facility] ([place]) Comment on above: Performed By: #### Amy BOWMAN, INSLN, CPEP, ANKUR, HCV1, MADYSON, GEOVANNA, GGT, PTH #### [place] [address] #### 571153, VIDH, 435003, GFR, MG, JESSICA, CMP, LIP, TSH, ADIFF, CRP, PHOS, CBC, ANEU #### [address] [address] Electrolyte Balance 11.0 mEq/L Normal 4.0-15.0 [facility] ([place]) Comment on above: Performed By: #### Amy BOWMAN, INSLN, CPEP, ANKUR, HCV1, MADYSON, GEOVANNA, GGT, PTH #### [place] [address] #### 781344, VIDH, 754385, GFR, MG, JESSICA, CMP, LIP, TSH, ADIFF, CRP, PHOS, CBC, ANEU #### [address] [address] Globulin 4.0 G/dL Normal [facility] ([place]) Comment on above: Performed By: #### Amy HEAS, INSLN, CPEP, ANKUR, HCV1, MADYSON, GEOVANNA, GGT, PTH #### [place] [address] #### 213499, VIDH, 780998, GFR, MG, JESSICA, CMP, LIP, TSH, ADIFF, CRP, PHOS, CBC, ANEU #### [address] [address] Glucose [Mass/Vol] 150 mg/dL High 83-110 [facility] ([place]) Comment on above: Performed By: #### Amy RUSSAS, INSLN, CPEP, ANKUR, HCV1, MADYSON, GEOVANNA, GGT, PTH #### [address] [address] #### 141988, VIDH, 455449, GFR, MG, JESSICA, CMP, LIP, TSH, ADIFF, CRP, PHOS, CBC, ANEU #### [address] [address] Potassium [Moles/Vol] 4.3 mmol/L Normal 3.5-5.1 [facility] ([place]) Comment on above: Performed By: #### Amy RUSSAS, INSLN, CPEP, ANKUR, HCV1, MADYSON, GEOVANNA, GGT, PTH #### [address] [address] #### 514631, VIDH, 758688, GFR, MG, JESSICA, CMP, LIP, TSH, ADIFF, CRP, PHOS, CBC, ANEU #### [address] [address] Sodium [Moles/Vol] 139 mmol/L Normal 136-145 [facility] ([place]) Comment on above: Performed By: #### Amy RUSSAS, INSLN, CPEP, ANKUR, HCV1, MADYSON, GEOVANNA, GGT, PTH #### [address] [address] #### 212368, VIDH, 255886, GFR, MG, JESSICA, CMP, LIP, TSH, ADIFF, CRP, PHOS, CBC, ANEU #### [address] [address] Total Protein 8.2 G/dL Normal 6.4-8.2 [facility] ([place]) Comment on above: Performed By: #### D HEAS, INSLN, CPEP, ANKUR, HCV1, MADYSON, GEOVANNA, GGT, PTH #### [address] [address] #### 136525, VIDH, 981118, GFR, MG, JESSICA, CMP, LIP, TSH, ADIFF, CRP, PHOS, CBC, ANEU #### [place] [place], [place] [address] Urea nitrogen [Mass/Vol] 17 mg/dL Normal 7-18 [facility] ([place]) Comment on above: Performed By: #### D HEAS, INSLN, CPEP, ANKUR, HCV1, MADYSON, GEOVANNA, GGT, PTH #### [address] [address] #### 349860, VIDH, 585826, GFR, MG, JESSICA, CMP, LIP, TSH, ADIFF, CRP, PHOS, CBC, ANEU #### [place] [address] [place], [place] [address] LABORATORYOrdered By: SYSTEM SYSTEM on 05-05-2023 25-hydroxyvitamin [...] [Mass/Vol] 230 mg/dL High 0-200 [facility] ([place]) Comment on above: Result Comment: Chol esterol Reference Interval: Less than 200 Desirable 200-239 Borderline high risk 240 and above High risk Performed By: #### D HEAS, INSLN, CPEP, ANKUR, HCV1, MADYSON, GEOVANNA, GGT, PTH #### [address] [address] #### 401425, VIDH, 269209, GFR, MG, JESSICA, CMP, LIP, TSH, ADIFF, CRP, PHOS, CBC, ANEU #### [address] [address] Cholesterol in HDL [Mass/Vol] 51 mg/dL Normal 40-60 [facility] ([place] Comment on above: Performed By: #### D HEAS, INSLN, CPEP, ANKUR, HCV1, MADYSON, GEOVANNA, GGT, PTH #### [address] [address] #### 876578, VIDH, 467121, GFR, MG, JESSICA, CMP, LIP, TSH, ADIFF, CRP, PHOS, CBC, ANEU #### [address] [address] Cholesterol in LDL [Mass/Vol] 151 mg/dL High 0-130 [facility] ([place]) Comment on above: Performed By: #### D HEAS, INSLN, CPEP, ANKUR, HCV1, MADYSON, GEOVANNA, GGT, PTH #### [address] [address] #### 442542, VIDH, 721934, GFR, MG, JESSICA, CMP, LIP, TSH, ADIFF, CRP, PHOS, CBC, ANEU #### [address] [address] Triglyceride [Mass/Vol] 141 mg/dL Normal 0-150 [facility] ([place]) Comment on above: Result Comment: Trig lyceride Reference Interval: Less than 150 Normal 150-199 Borderline high risk 200-499 High risk 500 or higher Very high risk Performed By: #### D PETRONAAS, INSLN, CPEP, ANKUR, HCV1, MADYSON, GEOVANNA, GGT, PTH #### [place] [address] #### 666386, VIDH, 389600, GFR, MG, JESSICA, CMP, LIP, TSH, ADIFF, CRP, PHOS, CBC, ANEU #### [address] [address] MALBRon 05-05-2023 U Creatinine 67.8 mg/dL Normal 28.0-117.0 [facility] ([place]) Comment on above: Performed By: #### D COLBY, INSLN, CPEP, ANKUR, HCV1, MADYSON, GEOVANNA, GGT, PTH #### [place] [address] #### 883516, VIDH, 395658, GFR, MG, JESSICA, CMP, LIP, TSH, ADIFF, CRP, PHOS, CBC, ANEU #### [address] [address] U Microalb 5344 mcg/dL Normal [facility] ([place]) Comment on above: Performed By: #### D PETRONAAS, INSLN, CPEP, ANKUR, HCV1, MADYSON, GEOVANNA, GGT, PTH #### [place] [address] #### 840760, VIDH, 723914, GFR, MG, JESSICA, CMP, LIP, TSH, ADIFF, CRP, PHOS, CBC, ANEU #### [address] [address] U Ratio Alb/Cre 79 mcg/mg High 0-30 [facility] ([place] Comment on above: Performed By: #### Amy HEAS, INSLN, CPEP, ANKUR, HCV1, MADYSON, GEOVANNA, GGT, PTH #### [place] [address] #### 753230, VIDH, 671825, GFR, MG, JESSICA, CMP, LIP, TSH, ADIFF, CRP, PHOS, CBC, ANEU #### [address] [address] VIDHon 05-05-2023 Vit. D 25-Hydroxy 25.9 ng/mL Normal [facility] ([place]) Comment on above: Result Comment: Inte rpretive Values Based on Total 25(OH) Vitamin D: Deficient <20 ng/mL Insufficient 20 - <30 ng/mL Sufficient 30-100 ng/mL Performed By: #### D HEAS, INSLN, CPEP, ANKUR, HCV1, MADYSON, GEOVANNA, GGT, PTH #### [address] [address] #### [id number], VIDH, [id number], GFR, MG, JESSICA, CMP, LIP, TSH, ADIFF, CRP, PHOS, CBC, ANEU #### [id number] [place], [place] [address] LABORATORYOrdered By: SYSTEM SYSTEM on 11-04-2022 25-hydroxyvitamin [...] 02:56-0400 Body temperature 98 [degF] Adelina Guallpa [employer]ER[employer]C Work Phone: [facility] 03-14-2025 02:56-0400 Diastolic blood pressure 92 mm[Hg] Adelina Guallpa [employer] M[employer]ER[employer]C Work Phone: [facility] 03-14-2025 02:56-0400 Heart rate 69 /min Adelina Guallpa [employer]C Work Phone: [facility] 03-14-2025 02:56-0400 Respiratory rate 18 /min Adelina Guallpa [employer]C Work Phone: [facility] 03-14-2025 02:56-0400 SaO2% (BldA) [Mass fraction] 95 % Adelina Guallpa [employer]ER[employer]C Work Phone: [facility] 03-14-2025 02:56-0400 Systolic blood pressure 160 mm[Hg] Adelina Guallpa [employer] MENDER[employer]C Work Phone: [facility] 03-14-2025 01:04-0400 Body height 154.94 cm Adelina Guallpa [employer]ER[employer]C Work Phone: [facility] 03-14-2025 01:04-0400 Body mass index (BMI) [Ratio] 19.1 kg/m2 Adelina Guallpa [employer]C Work Phone: [facility] 03-14-2025 01:04-0400 Body weight 45.8 kg Adelina Guallpa [employer]ER[employer]C Work Phone: [facility] 06-08-2024 16:41-0500 Heart rate 81 /min TYSON KNAPP MD [facility] 06-08-2024 16:41-0500 Respiratory rate 18 /min TYSON KNAPP MD [facility] 06-08-2024 16:12-0500 Body temperature 98.06 [degF] TYSON KNAPP MD [facility] 06-08-2024 16:12-0500 Body weight 50 kg TYSON KNAPP MD [facility] 06-08-2024 16:12-0500 Diastolic Blood Pressure Non-Invasive 62 mm[Hg] TYSON KNAPP MD [facility] 06-08-2024 16:12-0500 Heart rate 101 /min TYSON KNAPP MD [facility] 06-08-2024 16:12-0500 Respiratory rate 16 /min TYSON KNAPP MD [facility] 06-08-2024 16:12-0500 Systolic Blood Pressure Non-Invasive 163 mm[Hg] TYSON KNAPP MD [facility] 03-07-2024 16:30-0400 Body temperature 97.2 [degF] Braden Hopkins MD MPH Work Phone: [facility] 03-07-2024 16:30-0400 Diastolic blood pressure 72 mm[Hg] Braden Hopkins MD MPH Work Phone: [facility] 03-07-2024 16:30-0400 Heart rate 74 /min Braden Hopkins MD MPH Work Phone: [facility] 03-07-2024 16:30-0400 Respiratory rate 18 /min Braden Hopkins MD MPH Work Phone: [facility] 03-07-2024 16:30-0400 SaO2% (BldA) [Mass fraction] 96 % Braden Hopkins MD MPH Work Phone: [facility] 03-07-2024 16:30-0400 Systolic blood pressure 141 mm[Hg] Braden Hopkins MD MPH Work Phone: [facility] 03-07-2024 11:49-0400 Body height 154.9 cm Braden Hopkins MD MPH Work Phone: [facility] 03-07-2024 11:49-0400 Body mass index (BMI) [Ratio] 20.29 kg/m2 Braden Hopkins MD MPH Work Phone: [facility] 03-07-2024 11:49-0400 Body weight 48.7 kg Braden Hopkins MD MPH Work Phone: [facility] 03-02-2024 10:36-0400 Body temperature 97.3 [degF] Braden Hopkins MD MPH Work Phone: [facility] 03-02-2024 10:36-0400 Diastolic blood pressure 72 mm[Hg] Braden Hopkins MD MPH Work Phone: [facility] 03-02-2024 10:36-0400 Heart rate 103 /min Braden Hopkins MD MPH Work Phone: [facility] 03-02-2024 10:36-0400 Systolic blood pressure 110 mm[Hg] Braden Hopkins MD MPH Work Phone: [facility] 02-14-2024 14:29-0400 Body temperature 97.5 [degF] Braden Hopkins MD MPH Work Phone: [facility] 02-14-2024 14:29-0400 Diastolic blood pressure 63 mm[Hg] Braden Hopkins MD MPH Work Phone: [facility] 02-14-2024 14:29-0400 Heart rate 106 /min Braden Hopkins MD MPH Work Phone: [facility] 02-14-2024 14:29-0400 Respiratory rate 18 /min Braden Hopkins MD MPH Work Phone: [facility] 02-14-2024 14:29-0400 SaO2% (BldA) [Mass fraction] 100 % Braden Hopkins MD MPH Work Phone: [facility] 02-14-2024 14:29-0400 Systolic blood pressure 140 mm[Hg] Braden Hopkins MD MPH Work Phone: [facility] 12-26-2023 15:45-0400 Body temperature 97.2 [degF] Braden Hopkins MD MPH Work Phone: [facility] 12-26-2023 15:45-0400 Diastolic blood pressure 60 mm[Hg] Braden Hopkins MD MPH Work Phone: [facility] 12-26-2023 15:45-0400 Heart rate 89 /min Braden Hopkins MD MPH Work Phone: [facility] 12-26-2023 15:45-0400 Respiratory rate 18 /min Braden Hopkins MD MPH Work Phone: [facility] 12-26-2023 15:45-0400 SaO2% (BldA) [Mass fraction] 96 % Braden Hopkins MD MPH Work Phone: [facility] 12-26-2023 15:45-0400 Systolic blood pressure 132 mm[Hg] Braden Hopkins MD MPH Work Phone: [facility] 12-26-2023 11:51-0400 Body mass index (BMI) [Ratio] 19.66 kg/m2 Braden Hopkins MD MPH Work Phone: [facility] 12-26-2023 11:51-0400 Body weight 47.2 kg Braden Hopkins MD MPH Work Phone: [facility] 12-02-2023 09:09-0400 Body mass index (BMI) [Ratio] 19.08 kg/m2 Braden Hopkins MD MPH Work Phone: [facility] 12-02-2023 09:09-0400 Body temperature 96.3 [degF] Braden Hopkins MD MPH Work Phone: [facility] 12-02-2023 09:09-0400 Body weight 45.81 kg Braden Hopkins MD MPH Work Phone: [facility] 12-02-2023 09:09-0400 Diastolic blood pressure 82 mm[Hg] Braden Hopkins MD MPH Work Phone: [facility] 12-02-2023 09:09-0400 Heart rate 87 /min Braden Hopkins MD MPH Work Phone: [facility] 12-02-2023 09:09-0400 Systolic blood pressure 131 mm[Hg] Braden Hopkins MD MPH Work Phone: [facility] 11-07-2023 14:55-0400 Body temperature 97.7 [degF] Braden Hopkins MD MPH Work Phone: [facility] 11-07-2023 14:55-0400 Diastolic blood pressure 59 mm[Hg] Braden Hopkins MD MPH Work Phone: [facility] 11-07-2023 14:55-0400 Heart rate 88 /min Braden Hopkins MD MPH Work Phone: [facility] 11-07-2023 14:55-0400 Respiratory rate 15 /min Braden Hopkins MD MPH Work Phone: [facility] 11-07-2023 14:55-0400 SaO2% (BldA) [Mass fraction] 97 % Braden Hopkins MD MPH Work Phone: [facility] 11-07-2023 14:55-0400 Systolic blood pressure 128 mm[Hg] Braden Hopkins MD MPH Work Phone: [facility] 11-07-2023 10:49-0400 Body height 154.9 cm Braden Hopkins MD MPH Work Phone: [facility] 11-07-2023 10:49-0400 Body mass index (BMI) [Ratio] 18.66 kg/m2 Braden Hopkins MD MPH Work Phone: [facility] 11-07-2023 10:49-0400 Body weight 44.8 kg Braden Hopkins MD MPH Work Phone: [facility] 10-14-2023 08:54-0400 Body height 157.5 cm Braden Hopkins MD MPH Work Phone: [facility] 10-14-2023 08:54-0400 Body mass index (BMI) [Ratio] 17.85 kg/m2 Braden Hopkins MD MPH Work Phone: [facility] 10-14-2023 08:54-0400 Body weight 44.27 kg Braden Hopkins MD MPH Work Phone: [facility] 10-14-2023 08:54-0400 Diastolic blood pressure 84 mm[Hg] Braden Hopkins MD MPH Work Phone: [facility] 10-14-2023 08:54-0400 Heart rate 112 /min Braden Hopkins MD MPH Work Phone: [facility] 10-14-2023 08:54-0400 Systolic blood pressure 142 mm[Hg] Braden Hopkins MD MPH Work Phone: [facility] 08-21-2023 06:59-0500 Body temperature 98.1 [degF] HOSE MENDER-C Adelina Guallpa HOSE MENDER Work Phone: [facility] 08-21-2023 06:59-0500 Diastolic blood pressure 58 mm[Hg] HOSE MENDER-C Adelina Guallpa HOSE MENDER Work Phone: [facility] 08-21-2023 06:59-0500 Heart rate 83 /min HOSE MENDER-C Adelina Guallpa HOSE MENDER Work Phone: [facility] 08-21-2023 06:59-0500 Respiratory rate 16 /min HOSE MENDER-C Adelina Guallpa HOSE MENDER Work Phone: [facility] 08-21-2023 06:59-0500 SaO2% (BldA) [Mass fraction] 98 % HOSE MENDER-C Adelina Guallpa HOSE MENDER Work Phone: [facility] 08-21-2023 06:59-0500 Systolic blood pressure 133 mm[Hg] HOSE MENDER-C Adelina Guallpa HOSE MENDER Work Phone: [facility] 08-21-2023 05:06-0500 Body height 154.94 cm HOSE MENDER-C Adelina Guallpa HOSE MENDER Work Phone: [facility] 08-21-2023 05:06-0500 Body mass index (BMI) [Ratio] 18 kg/m2 HOSE MENDER-C Adelina Guallpa HOSE MENDER Work Phone: [facility] 08-21-2023 05:06-0500 Body weight 43.27 kg HOSE MENDER-C Adelina Guallpa HOSE MENDER Work Phone: [facility] 08-10-2023 12:29-0500 Body temperature 98.1 [degF] HOSE MENDER-C Adelina Guallpa HOSE MENDER Work Phone: [facility] 08-10-2023 12:29-0500 Diastolic blood pressure 49 mm[Hg] HOSE MENDER-C Adelina Guallpa HOSE MENDER Work Phone: [facility] 08-10-2023 12:29-0500 Heart rate 89 /min HOSE MENDER-C Adelina Gulalpa HOSE MENDER Work Phone: [facility] 08-10-2023 12:29-0500 Respiratory rate 14 /min HOSE MENDER-C Adelina Guallpa HOSE MENDER Work Phone: [facility] 08-10-2023 12:29-0500 SaO2% (BldA) [Mass fraction] 99 % HOSE MENDER-C Adelina Guallpa HOSE MENDER Work Phone: [facility] 08-10-2023 12:29-0500 Systolic blood pressure 121 mm[Hg] HOSE MENDER-C Adelina Guallpa HOSE MENDER Work Phone: [facility] 08-09-2023 13:17-0500 Body height 157.48 cm HOSE MENDER-C Adelina Guallpa HOSE MENDER Work Phone: [facility] 08-09-2023 13:17-0500 Body weight 46.4 kg HOSE MENDER-C Adelina Guallpa HOSE MENDER Work Phone: [facility] 08-07-2023 07:52-0500 Inhaled oxygen flow rate 2 L/min HOSE MENDER-C Adelina Guallpa HOSE MENDER Work Phone: [facility] 08-05-2023 22:20-0500 Body mass index (BMI) [Ratio] 18.7 kg/m2 HOSE MENDER-C Adelina Guallpa HOSE MENDER Work Phone: [facility] 08-05-2023 18:43-0500 Inhaled oxygen concentration 1.5 % HOSE MENDER-C Adelina Guallpa HOSE MENDER Work Phone: [facility] Encounters Encounter Date Encounter Type Care Provider Facility Start: 03-14-2025 End: 03-14-2025 Emergency department patient visit Adelina KAPLANC Work Phone: -Emergency Department Work Phone: Start: 02-12-2025 End: 02-16-2025 ambulatory ADELINA WAGNERPKINS BEATER WORKER HELPER - 3D TECHNOLOGIST Facility:[facility] Start: 02-12-2025 End: 02-16-2025 Outreach Lab ADELINA WAGNERPKINS BEATER WORKER HELPER - 3D TECHNOLOGIST [facility] Start: 07-26-2024 End: 07-30-2024 ambulatory ADEILNA Amy SALONI BEATER WORKER HELPER - 3D TECHNOLOGIST Facility:[facility] Start: 07-26-2024 End: 07-30-2024 Outreach Lab ADELINA WAGNERPKINS BEATER WORKER HELPER - 3D TECHNOLOGIST [facility] Start: 06-08-2024 End: 06-08-2024 Emergency department patient visit TYSON KNAPP MD [facility] Start: 03-07-2024 End: 03-07-2024 Subsequent hospital visit by physician Braden Hopkins MD MPH Work Phone: [facility] [place] Comment on above: 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) Start: 03-02-2024 Evaluation and management of inpatient [facility] Start: 03-02-2024 End: 03-02-2024 ambulatory [facility] Start: 03-02-2024 End: 03-02-2024 Office outpatient visit 25 minutes Braden Hopkins MD MPH Work Phone: [facility] [employer] [facility] 1 Comment on above: 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) Start: 03-02-2024 End: 03-02-2024 ambulatory BRADEN Shields [facility] Start: 02-20-2024 End: 02-20-2024 ambulatory ADELINA GUALLPA [facility] Start: 02-14-2024 End: 02-14-2024 [facility] Start: 02-14-2024 End: 02-14-2024 Patient encounter procedure Braden Hopkins MD MPH Work Phone: [facility] Comment on above: 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) Start: 01-13-2024 End: 01-13-2024 ambulatory [facility] Start: 01-13-2024 End: 01-13-2024 Phys/qhp telephone evaluation 21-30 min Braden Hopkins MD MPH Work Phone: [facility] 1 Comment on above: 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); Asymptomatic microscopic hematuria Start: 12-26-2023 End: 12-26-2023 Subsequent hospital visit by physician Braden Hopkins MD MPH Work Phone: [facility] [place] Comment on above: 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) Start: 12-21-2023 ambulatory BRADEN HOPKINS [facility] Start: 12-19-2023 End: 12-19-2023 ambulatory ADELINA CROFT SALONI [facility] Start: 12-02-2023 End: 12-02-2023 ambulatory [facility] Start: 12-02-2023 End: 12-02-2023 Office outpatient visit 25 minutes Braden Hopkins MD MPH Work Phone: [facility] 1 Comment on above: 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); Asymptomatic microscopic hematuria Start: 11-22-2023 End: 11-22-2023 Subsequent hospital visit by physician Robinson Daigle [facility] Comment on above: Ureteral mass Start: 11-22-2023 End: 11-22-2023 ambulatory BRADEN Shields [facility] Start: 11-17-2023 End: 11-22-2023 ambulatory ADELINA GUALLPA BEATER WORKER HELPER - 3D TECHNOLOGIST Facility:[facility] Start: 11-17-2023 End: 11-21-2023 Outreach Lab JULIUS BENJAMIN MD [facility] Start: 11-07-2023 End: 11-07-2023 ambulatory [facility] Start: 11-07-2023 End: 11-07-2023 Subsequent hospital visit by physician Braden Hopkins MD MPH Work Phone: [facility] [place] Comment on above: Mass of ureter (Prim kasey Dx); Ureteral mass Start: 11-03-2023 End: 11-08-2023 ambulatory [facility] Start: 11-03-2023 End: 11-03-[address] [facility] Start: 11-03-2023 End: 11-03-2023 Encounter for other preprocedural examination [facility] Start: 11-03-2023 End: 11-03-2023 Subsequent hospital visit by physician Tao [id number] Cr [id number] Holter/Ecg Resource [facility] Comment on above: Ureteral mass Start: 10-31-2023 End: 10-31-2023 [address]FT [facility] Start: 10-14-2023 End: 10-14-2023 Office outpatient new 60 minutes Braden Hopkins MD MPH Work Phone: [facility] 1 Comment on above: Ureteral mass (Prima ry Dx); Mass of ureter Start: 10-14-2023 End: 10-14-2023 ambulatory BRADEN [facility] Start: 09-30-2023 End: 10-05-2023 ambulatory ADELINA GUALLPA BEATER WORKER HELPER - 3D TECHNOLOGIST Facility:[facility] Start: 09-22-2023 End: 09-27-2023 ambulatory ADELINA GUALLPA BEATER WORKER HELPER - 3D TECHNOLOGIST Facility:[facility] Start: 09-22-2023 End: 09-26-2023 Outreach Lab ADELINA GUALLPA BEATER WORKER HELPER - 3D TECHNOLOGIST [facility] Start: 08-24-2023 End: 08-25-2023 ambulatory ADELINA Reyes SALONI BEATER WORKER HELPER - 3D TECHNOLOGIST Facility:[facility] Start: 08-24-2023 End: 08-24-2023 Patient encounter procedure ADELINA Amy GUALLPA BEATER WORKER HELPER - 3D TECHNOLOGIST [facility] Start: 08-22-2023 End: 08-22-2023 ambulatory HOSE MENDER-C Adelina Guallpa HOSE MENDER Work Phone: [facility] Work Phone: Start: 08-22-2023 End: 08-22-2023 Patient encounter procedure HOSE MENDER-C Adelina Guallpa HOSE MENDER Work Phone: [facility]-Laboratory, Specimen Work Phone: Start: 08-21-2023 End: 08-21-2023 Emergency department patient visit HOSE MENDER-C Adelina Guallpa HOSE MENDER Work Phone: [facility]-Emergency Department Work Phone: Start: 08-10-2023 Non-patient / Non-visit HOSE MENDER-C R thomas Guallpa HOSE MENDER Work Phone: [facility] Work Phone: Start: 08-09-2023 Non-patient / Non-visit HOSE MENDER-C R thomas Guallpa HOSE MENDER Work Phone: [facility] Work Phone: Start: 08-08-2023 Non-patient / Non-visit HOSE MENDER-C R thomas Guallpa HOSE MENDER Work Phone: [facility] Work Phone: Start: 08-08-2023 Non-patient / Non-visit HOSE MENDER-C R thomas Guallpa HOSE MENDER Work Phone: [facility] Start: 08-07-2023 Non-patient / Non-visit HOSE MENDER-C R thomas Guallpa HOSE MENDER Work Phone: [facility] Work Phone: Start: 08-06-2023 Non-patient / Non-visit HOSE MENDER-C Bree Guallpa HOSE MENDER Work Phone: [facility] Work Phone: Start: 08-05-2023 Non-patient / Non-visit HOSE MENDER-C Bree Guallpa HOSE MENDER Work Phone: [facility] Work Phone: Start: 08-05-2023 End: 08-10-2023 Evaluation and management of inpatient HOSE MENDER-C Adelina Guallpa HOSE MENDER Work Phone: [facility]-Progressive Care Unit Work Phone: Start: 05-05-2023 End: 05-10-2023 ambulatory ADELINA GUALLPA BEATER WORKER HELPER - 3D TECHNOLOGIST Facility:[facility] Start: 05-05-2023 End: 05-09-2023 Outreach Lab ADELINA GUALLPA BEATER WORKER HELPER - 3D TECHNOLOGIST [facility] Start: 11-04-2022 End: 11-08-2022 Outreach Lab ADELINA GUALLPA BEATER WORKER HELPER - 3D TECHNOLOGIST [facility] Start: 05-06-2022 End: 05-10-2022 Outreach Lab ADELINA GUALLPA BEATER WORKER HELPER - 3D TECHNOLOGIST [facility] Start: 11-05-2021 End: 11-09-2021 Outreach Lab ADELINA GUALLPA BEATER WORKER HELPER - 3D TECHNOLOGIST [facility] Start: 04-24-2021 End: 04-28-2021 Outreach Lab ADELINA GUALLPA BEATER WORKER HELPER - 3D TECHNOLOGIST [facility] Procedures Date Procedure Procedure Detail Performing Clinician Start: 03-14-2025 SARS-CoV-2, Influenz a & RSV (PCR) Adelina Guallpa HOSE MENDER-C Work Phone: Start: 03-14-2025 CT angiography of ch est with contrast Adelina Guallpa HOSE MENDER-C Work Phone: Start: 03-14-2025 Estimated creatinine clearance Adelina Guallpa HOSE MENDER-C Work Phone: Start: 03-07-2024 Glucose quantitative blood [...] Start: 11-07-2023 PULSE OXIMETRY, SPOT Ad am Cornleius Hopkins MD MPH Work Phone: Start: 11-03-2023 [...] of abdomen and pelvis with intravenous contrast HOSE MENDER-C Adelina Guallpa HOSE MENDER Work Phone: Start: 08-09-2023 Fluoroscopic guidance N P-C Adelina Guallpa HOSE MENDER Work Phone: Start: 08-09-2023 Insertion of stent i nto ureter HOSE MENDER-C Adelina Guallpa HOSE MENDER Work Phone: Start: 08-08-2023 CT of abdomen and pe lvis without contrast HOSE MENDER-C Adelina Guallpa HOSE MENDER Work Phone: Start: 08-08-2023 US urinary tract HOSE MENDER-C Bree Guallpa HOSE MENDER Work Phone: Start: 08-05-2023 Plain chest X-ray HOSE MENDER-C Adelina Guallpa HOSE MENDER Work Phone: Start: 08-05-2023 Bacteria identified in Blood by Culture HOSE MENDER-C Adelina Guallpa HOSE MENDER Work Phone: Start: 08-05-2023 SARS-CoV-2, Influenz a & RSV (PCR) HOSE MENDER-C Adelina Guallpa HOSE MENDER Work Phone: Start: 08-05-2023 Urine culture HOSE MENDER-C Son Guallpa HOSE MENDER Work Phone: Start: 06-27-1997 Surgery (qualifier value) ADELINA GUALLPA BEATER WORKER HELPER - 3D TECHNOLOGIST Comment on above: Bowel Start: 06-27-1996 Removal of ovarian cyst ADELINA GUALLPA BEATER WORKER HELPER - 3D TECHNOLOGIST Start: 06-27-1987 Hysterectomy ADELINA BUCHANAN BEATER WORKER HELPER - 3D TECHNOLOGIST Refusal of treatment by patient Declined smoking cessation( Confirmed ) ADELINA GUALLPA BEATER WORKER HELPER - 3D TECHNOLOGIST Plan of Treatment Date Care Activity Detail Author Start: 03-14-2025 [facility] Start: 03-13-2024 End: 03-13-2024 Patient encounter procedure 03/13/2024 10:50 AM EDT Procedure Visit [facility] [address] [place] [address] Braden Hopkins MD MPH [address] [facility] [place] [address] [facility] Start: 03-07-2024 End: 03-07-2024 Laparoscopy nephrectomy w/total ureterectomy Nephroureterectomy Laparoscopy Urothelial carcinoma of kidney, right (Multi) 03/07/2024 12:46 PM EDT Virtual [facility] Start: 03-07-2024 End: 03-07-2024 Admission to same day surgery center [facility] [place] Comment on above: Robotic Assisted Nephroureterectomy [505 48 (CPT )] Nephroureterectomy L aparoscopy [16248 (CPT )] Start: 03-07-2024 End: 03-07-2024 Laparoscopy nephrectomy w/total ureterectomy Virtual [facility] Start: 03-07-2024 Subsequent hospital visit by physician [facility] Start: 02-26-2024 COVID-19 Vaccine ( season) COVID-19 Vaccine () [facility] Start: 02-26-2024 Influenza vaccination [facility] Start: 02-14-2024 End: 02-14-2024 Patient encounter procedure 02/14/2024 2:10 PM EDT Procedure Visit [facility] [address] [place] [address] Braden Hopkins MD MPH [address] [place] [address] [facility] Start: 02-03-2024 Hemoglobin A1c measurement Diabetes: Hemoglobin A1C [facility] Start: 01-15-2024 End: 01-22-2024 Bacteria identified in Urine by Culture Urine Culture Microbiology Routine Carcinoma of right ureter (Multi) Asymptomatic microscopic hematuria Expected: 01/15/2024 (Approximate), Expires: 01/22/2024 [facility] Work Phone: Comment on above: Expected: 01/15/2024 (Approximate), Expi res: 01/22/2024 Start: 01-15-2024 End: 01-14-2025 Basic metabolic 2000 panel - Serum or Plasma Basic Metabolic Panel Lab Routine Carcinoma of right ureter (Multi) Expected: 01/15/2024 (Approximate), Expires: 01/14/[address] [facility] Service Area Work Phone: Comment on above: Expected: 01/15/2024 (Approximate), Expi res: 01/14/2025 Start: 01-15-2024 End: 01-14-2025 Blood type and Indirect antibody screen panel - Blood Type And Screen Lab Routine Carcinoma of right ureter (Multi) Expected: 01/15/2024 (Approximate), Expires: 01/14/2025 [facility] Work Phone: Comment on above: Expected: 01/15/2024 (Approximate), Expi res: 01/14/2025 Start: 01-15-2024 End: 01-14-2025 CBC panel - Blood by Automated count CBC Lab Routine Carcinoma of right ureter (Multi) Expected: 01/15/2024 (Approximate), Expires: 01/14/2025 [facility] Work Phone: Comment on above: Expected: 01/15/2024 (Approximate), Expi res: 01/14/2025 Start: 01-15-2024 End: 01-14-2025 ECG 12 lead ECG 12 lead ECG Routine Carcinoma of right ureter (Multi) Expected: 01/15/2024 (Approximate), Expires: 01/14/2025 [facility] Work Phone: Comment on above: Expected: 01/15/2024 (Approximate), Expi res: 01/14/2025 Start: 01-15-2024 End: 01-14-2025 PT and aPTT panel - Platelet poor plasma by Coagulation assay Coagulation Screen Lab Routine Carcinoma of right ureter (Multi) Asymptomatic microscopic hematuria Expected: 01/15/2024 (Approximate), Expires: 01/14/2025 [facility] Work Phone: Comment on above: Expected: 01/15/2024 (Approximate), Expi res: 01/14/2025 Start: 01-15-2024 End: 01-14-2025 Request for Pre-Admission Testing Visit Request for Pre-Admission Testing Visit Procedures Routine Carcinoma of right ureter (Multi) Expected: 01/15/2024 (Approximate), Expires: 01/14/2025 [facility] Work Phone: Comment on above: Expected: 01/15/2024 (Approximate), Expi res: 01/14/2025 Start: 01-15-2024 End: 01-14-2025 Urinalysis complete W Reflex Culture panel - Urine Urinalysis with Reflex Culture and Microscopic Lab Routine Carcinoma of right ureter (Multi) Expected: 01/15/2024 (Approximate), Expires: 01/14/2025 [facility] Work Phone: Comment on above: Expected: 01/15/2024 (Approximate), Expi res: 01/14/2025 Start: 01-13-2024 End: 01-13-2024 Patient encounter procedure 01/13/2024 9:10 AM EDT Office Visit [facility] [employer] [facility] 1 [address] [facility] [employer] [facility] [address] [place] [address] Braden Hopkins MD MPH [address] Department of Urology [place] [id number] [facility] [employer] [facility] 1 Start: 12-26-2023 End: 12-26-2023 Cysto w/urtroscopy&/pyeloscopy dx Nephroscopy Carcinoma of right ureter (Multi) 12/26/2023 12:29 PM EDT Virtual [facility] [place] Start: 12-02-2023 End: 12-09-2023 Bacteria identified in Urine by Culture Urine Culture Microbiology Routine Carcinoma of right ureter (Multi) Asymptomatic microscopic hematuria Expected: 12/02/2023 (Approximate), Expires: 12/09/2023 [facility] Work Phone: Comment on above: Expected: 12/02/2023 (Approximate), Expi res: 12/09/2023 Start: 12-02-2023 End: 12-01-2024 Urinalysis complete W Reflex Culture panel - Urine Urinalysis with Reflex Culture and Microscopic Lab Routine Carcinoma of right ureter (Multi) Expected: 12/02/2023 (Approximate), Expires: 12/01/[address] [facility] Service Area Work Phone: Comment on above: Expected: 12/02/2023 (Approximate), Expi res: 12/01/2024 Start: 12-02-2023 End: 12-02-2023 Patient encounter procedure 12/02/2023 9:00 AM EDT Office Visit [place] [address] [place] [address] [address] [facility] [address] [place] [address] Braden Hopkins MD MPH [address] [place] [address] [facility] 1 Start: 10-14-2023 End: 10-21-2023 Bacteria identified in Urine by Culture Urine Culture Microbiology Routine Ureteral mass Expected: 10/14/2023 (Approximate), Expires: 10/21/2023 [facility] Work Phone: Comment on above: Expected: 10/14/2023 (Approximate), Expi res: 10/21/2023 Start: 10-14-2023 End: 10-13-2024 Basic metabolic 2000 panel - Serum or Plasma Basic Metabolic Panel Lab Routine Ureteral mass Expected: 10/14/2023 (Approximate), Expires: 10/13/[address] [facility] Service Area Work Phone: Comment on above: Expected: 10/14/2023 (Approximate), Expi res: 10/13/2024 Start: 10-14-2023 End: 10-13-2024 CBC panel - Blood by Automated count CBC Lab Routine Ureteral mass Expected: 10/14/2023 (Approximate), Expires: 10/13/2024 [facility] Work Phone: Comment on above: Expected: 10/14/2023 (Approximate), Expi res: 10/13/2024 Start: 10-14-2023 End: 10-13-2024 ECG 12 lead ECG 12 lead ECG Routine Ureteral mass Expected: 10/14/2023 (Approximate), Expires: 10/13/2024 [facility] Work Phone: Comment on above: Expected: 10/14/2023 (Approximate), Expi res: 10/13/2024 Start: 10-14-2023 End: 10-13-2024 PT and aPTT panel - Platelet poor plasma by Coagulation assay Coagulation Screen Lab Routine Ureteral mass Expected: 10/14/2023 (Approximate), Expires: 10/13/2024 [facility] Work Phone: Comment on above: Expected: 10/14/2023 (Approximate), Expi res: 10/13/2024 Start: 10-14-2023 End: 10-13-2024 Urinalysis complete W Reflex Culture panel - Urine Urinalysis with Reflex Culture and Microscopic Lab Routine Ureteral mass Expected: 10/14/2023 (Approximate), Expires: 10/13/2024 [facility] Work Phone: Comment on above: Expected: 10/14/2023 (Approximate), Expi res: 10/13/2024 Start: 08-21-2023 [facility] Start: 08-10-2023 Patient discharge [facility] Start: 08-08-2023 Consultation [facility] Start: 08-08-2023 Incentive spirometry [facility] Start: 08-08-2023 [facility] Start: 08-07-2023 Following clinical pathway protocol [facility] Start: 08-05-2023 Following clinical pathway protocol [facility] Start: 08-05-2023 Oxygen therapy [facility] Start: 08-05-2023 Ambulation without limitation [facility] Start: 08-05-2023 Assessment of risk of venous thromboembolism [facility] Start: 08-05-2023 Care regimes management [facility] Start: 08-05-2023 Insertion of catheter into peripheral vein [facility] Start: 08-05-2023 Measuring intake and output [facility] Start: 08-05-2023 Notification of physician [facility] Start: 08-05-2023 Providing care according to standard [facility] Start: 08-05-2023 Provision of activity privileges [facility] Start: 08-05-2023 Referral to occupational therapist [facility] Start: 08-05-2023 Referral to service [facility] Start: 08-05-2023 [facility] Start: 08-05-2023 Admission procedure [facility] Start: 08-05-2023 Hospital admission, emergency, from emergency room, medical nature [facility] Start: 08-05-2023 Blood culture [facility] Start: 08-05-2023 [facility] Start: 08-05-2023 Bacteria identified in Blood by Culture Blood Culture [facility] Start: 08-05-2023 Patient referral to dietitian [facility] Start: 02-25-2023 COVID-19 Vaccine ( season) COVID-19 Vaccine ( season) [facility] Start: 2007 Hepatitis B Vaccines (1 of 3 - Risk 3-dose series) Hepatitis B Vaccines (1 of 3 - Risk 3-dose series) [facility] Start: 2007 RSV patients and/or patients aged 60+ years (1 - 1-dose 60+ series) RSV patients and/or patients aged 60+ years (1 - 1-dose 60+ series) [facility] Start: 1997 Zoster Vaccines (1 of 2) Zoster Vaccines (1 of 2) [facility] Start: 1969 DTaP/Tdap/Td Vaccines (1 - Tdap) DTaP/Tdap/Td Vaccines (1 - Tdap) [facility] Start: 1966 Hepatitis A Vaccines (1 of 2 - Risk 2-dose series) Hepatitis A Vaccines (1 of 2 - Risk 2-dose series) [facility] Start: 1966 Urine screening for protein Diabetes: Urine Protein Screening [facility] Start: 1965 Hepatitis C screening Hepatitis C Screening [facility] Start: 1957 Diabetic foot examination Diabetes: Foot Exam [facility] Start: 1957 Glaucoma screening Diabetes: Retinopathy Screening [facility] Start: 1945 Lipid panel Lipid Panel [facility] Start: 1945 Medicare Annual Wellness Visit Medicare Annual Wellness Visit (AWV) [facility] Start: 1945 Screening for osteoporosis Bone Density Scan [facility] Bilirubin measuremen t, urine [facility] End: 12-26-2023 Continuous Pulse oximetry, In Phase 1 Continuous Pulse oximetry, In Phase 1 Respiratory Care Routine Continuous until discontinued starting 12/26/[address] [facility] Service Area Work Phone: Comment on above: Continuous until discontinued starting 0 12/26/2023 End: 11-22-2023 CT Kidney and Ureter and Urinary bladder 3D post processing WO and W contrast IV [facility] Work Phone: Comment on above: Once for 1 Occurrences starting 11/22/19 until 11/22/2023 Cysto w/urtroscopy&/pyeloscopy dx Ureteroscopy Mass of ureter Virtual [facility] [place] Cysto w/urtroscopy&/pyeloscopy dx Nephroscopy Carcinoma of right ureter (Multi) [facility] End: 11-08-2023 ECG 12 lead [facility] Work Phone: Comment on above: Once for 1 Occurrences starting 11/08/19 until 11/08/2023 End: 11-07-2023 Glucose [Mass/volume] in Serum or Plasma POCT Glucose Point of Care Testing - Docked Device Routine Once (Lab) for 1 Occurrences starting 11/07/2023 until 11/07/2023 [facility] Work Phone: Comment on above: Once (Lab) for 1 Occurrences starting until 11/07/2023 End: 03-07-2024 Glucose [Mass/volume] in Serum or Plasma POCT Glucose Point of Care Testing - Docked Device Routine Once (Lab) for 1 Occurrences starting 03/07/2024 until 03/07/[address] [facility] Service Area Work Phone: Comment on above: Once (Lab) for 1 Occurrences starting until 03/07/2024 Hemoglobin [Presence ] in Urine [facility] Laparoscopy nephrect jennie w/total ureterectomy Nephroureterectomy Laparoscopy Carcinoma of right ureter (Multi) Virtual [facility] OR Measurement of keton es in urine using dipstick [facility] Microscopic urinalysis [facility] Non-gynecological cy tology method study Cytology Consultation (Non-Gynecologic) Pathology and Cytology Timed Mass of ureter Release Upon Ordering for 1 Occurrences starting 11/07/[address] [facility] Service Area Work Phone: Comment on above: Release Upon Ordering for 1 Occurrences starting 11/07/2023 Organism count, microscopic method [facility] Patient Education [facility] Work Phone: Patient referral [facility] Work Phone: pH of Urine [facility] Specific gravity of Urine [facility] Surgical pathology study Surgica l Pathology Exam Pathology and Cytology Timed Mass of ureter Release Upon Ordering for 1 Occurrences starting 11/07/2023 [facility] Work Phone: Comment on above: Release Upon Ordering for 1 Occurrences starting 11/07/2023 Surgical pathology study [facility] Service Area Work Phone: Comment on above: Release Upon Ordering for 1 Occurrences starting 12/26/2023, 1 completed Urine dipstick for glucose [facility] Urine dipstick for leukocyte esterase [facility] Urine dipstick for nitrite [facility] Urine dipstick for protein [facility] Urine examination [facility] Urine microscopy: epithelial cells [facility] Urine microscopy: re d cells [facility] Urobilinogen [Presen ce] in Urine [facility] End: 11-07-2023 Verify ABO/Rh Group Test (VERAB) Verify ABO/Rh Group Test (VERAB) Lab STAT STAT (Lab) for 1 Occurrences starting 11/07/2023 until 11/07/2023 [facility] Work Phone: Comment on above: STAT (Lab) for 1 Occurrences starting until 11/07/2023 White blood cell count [facility] Immunizations Immunization Date Immunization Notes Care Provider Fa cility 03-19-2022 influenza, high dose seasonal, preservative-free ADELINA GUALLPA BEATER WORKER HELPER - 3D TECHNOLOGIST [facility] Comment on above: Early/Late Reason: E heaven/Late Reason: Other: 03-19-2022 influenza virus vacc ine, unspecified formulation Braden Hopkins MD MPH Work Phone: [facility] Work Phone: 05-26-2021 COVID-19, mRNA, LNP- S, PF, 100 mcg or 50 mcg dose; Translations: [Moderna COVID-19 Vaccine] ADELINA GUALLPA BEATER WORKER HELPER - 3D TECHNOLOGIST [facility] 04-02-2021 influenza, high dose seasonal, preservative-free; Translations: [Afluria PF Quadrivalent ] ADELINA GUALLPA BEATER WORKER HELPER - 3D TECHNOLOGIST [facility] 10-10-2020 SARS-CoV-2 (COVID-19 ) mRNA-1273 vaccine ADELINA GUALLPA BEATER WORKER HELPER - 3D TECHNOLOGIST [facility] Comment on above: Result Comment: 2020: TPV70 09-12-2020 SARS-CoV-2 (COVID-19 ) mRNA-1273 vaccine ADELINA GUALLPA BEATER WORKER HELPER - 3D TECHNOLOGIST [facility] Comment on above: Result Comment: 2020: TPV70 03-28-2020 influenza, injectabl e, quadrivalent, preservative free; Translations: [Fluarix PF Quadrivalent ] ADELINA WAGNERPKINS BEATER WORKER HELPER - 3D TECHNOLOGIST [facility] 03-22-2019 influenza, injectabl e, quadrivalent, preservative free; Translations: [Fluarix PF Quadrivalent ] ADELINA WAGNERPKINS BEATER WORKER HELPER - 3D TECHNOLOGIST [facility] 03-21-2018 influenza virus vacc ine, unspecified formulation ADELINA WEBSTERKINS BEATER WORKER HELPER - 3D TECHNOLOGIST [facility] 03-17-2017 influenza virus vacc ine, unspecified formulation ADELINA GUALLPA BEATER WORKER HELPER - 3D TECHNOLOGIST [facility] 03-15-2016 influenza virus vacc ine, unspecified formulation ADELINA WAGNERPKINS BEATER WORKER HELPER - 3D TECHNOLOGIST [facility] 03-15-2016 pneumococcal polysaccharide vaccine, 23 valent ADELINA WEBSTERKINS BEATER WORKER HELPER - 3D TECHNOLOGIST [facility] 03-13-2015 influenza virus vacc ine, unspecified formulation ADELINA GUALLPA BEATER WORKER HELPER - 3D TECHNOLOGIST [facility] 03-13-2015 pneumococcal conjuga te vaccine, 13 valent ADELINA WEBSTERKINS BEATER WORKER HELPER - 3D TECHNOLOGIST [facility] 03-27-2014 influenza virus vacc ine, unspecified formulation ADELINA GUALLPA BEATER WORKER HELPER - 3D TECHNOLOGIST [facility] 04-19-2013 influenza virus vacc ine, unspecified formulation ADELINA GUALLPA BEATER WORKER HELPER - 3D TECHNOLOGIST [facility] 04-18-2012 influenza virus vacc ine, unspecified formulation ADELINA GUALLPA BEATER WORKER HELPER - 3D TECHNOLOGIST [facility] Payers Date Payer Category Payer Self-pay [id number] 2022 Unknown [id number] 2019 Private Health Insurance [id number] 2019 Unknown [id number] 2018 Medicare [id number] 2018 Medicare [id number] 1947 Unknown [id number] 2.840.1.156316.3.579.2. 1947 Unknown [id number] 2.840.1.249739.3.579.2. 1947 Unknown [id number] 2.840.1.659941.3.579.2. 1947 Unknown [id number] 2.16840.1.813045.3.579.2. 1947 Unknown [id number] 2.16840.1.854419.3.579.2. 1947 Unknown [id number] 2.16.840.1.794597.3.579.2. 1947 Unknown [id number] 2.16.840.1.572111.3.579.2. 1947 Unknown [id number] 2.16.840.1.387145.3.579.2. 1947 Unknown [id number] 2.16.840.1.173884.3.579.2. 1947 Unknown [id number] 2.16.840.1.078939.3.579.2.1242 1947 Unknown [id number] 2.16.840.1.362940.3.579.2.1243 1947 Unknown [id number] 2.16.840.1.316049.3.579.2.1243 1947 Unknown [id number] 2.16.840.1.610381.3.579.2.1243 1947 Unknown [id number] 2.16840.1.771326.3.579.2.1243 1947 Unknown [id number] 2.16.840.1.315560.3.579.2.1244 1947 Unknown [id number] 2.16.840.1.574444.3.579.2.1244 1947 Unknown [id number] 2.16.840.1.921313.3.579.2.1244 1947 Unknown [id number] 2.16.840.1.125795.3.579.2.1244 1947 Unknown [id number] 2.16.840.1.874784.3.579.2.1244 1947 Unknown [id number] 2.16.840.1.496579.3.579.2.1244 1947 Unknown [id number] 2.16.840.1.468866.3.579.2.1244 1947 Unknown [id number] 2.16.840.1.714640.3.579.2.1244 1947 Unknown [id number] 2.16.840.1.624486.3.579.2.1245 1947 Unknown [id number] 2.16.840.1.212503.3.579.2.1245 Unknown [facility] *DO NOT USE* [id number] Unknown [id number] 2.16.840.1.631388.3.579.2.462 Social History Date Type Detail Facility Start: 02-09-2021 End: 11-29-2024 Heavy tobacco smoker (finding) [facility] Start: 1945 Sex Assigned At Female [facility] Start: 08-06-2023 End: 08-21-2023 Tobacco smoking status UTIS Unknown if ever smoked [facility] Start: 09-17-2019 Cigarettes [facility] Start: 10-14-2023 End: 03-14-2025 Tobacco smoking status NHIS Smokes tobacco daily [facility] Work Phone: History of tobacco use Cigarette Smoker [facility] Work Phone: Start: 10-14-2023 End: 10-31-2023 Tobacco use and exposure Smokeless tobacco non-user [facility] Work Phone: Start: 10-14-2023 Alcoholic beverage intake Lifetime non-drinker (finding) [facility] Work Phone: Start: 1945 Sex assigned at Not on file [facility] Work Phone: Start: 11-03-2023 End: 11-07-2023 Gender identity Not on file [facility] Start: 10-04-2023 End: 03-07-2024 Exposure to SARS-CoV-2 (event) Not sure [facility] Start: 11-07-2023 End: 12-26-2023 Alcoholic beverage intake Ex-drinker (finding) [facility] Work Phone: Start: 11-03-2023 End: 11-07-2023 History of Social function [facility] Work Phone: Start: 10-31-2023 Alcohol Comment Occasional [facility] Work Phone: Start: 01-03-2024 End: 01-13-2024 Exposure to SARS-CoV-2 (event) Unable to assess [facility] Sexual Orientation Raiza morataya [facility] Start: 12-20-2018 Sex Female (finding) [facility] Medical Equipment Procedure Code Equipment Code Equipment Origin al Text Equipment Identifier Dates Cystoscopy, with retrograde pyelogram and ureteral stent insertion ([id number]) Polymeric ureteral stent ([id number] FDA Start: 08-09-2023 USE A NEEDLE ONC E A DAY Start: 08-23-2023 Stent, [place], 6fr X 24cm - [id number] - [id number] Start: 11-07-2023 Stent, [place], 6fr X 24cm - [id number] Start: 12-26-2023 Goals Date Patient Goal Desired Activity /State Functional Status Date Assessment Result Facility 06-08-2024 Functional Status Independent Raiza escoto [facility] 08-10-2023 Functional status Ambulates [facility] Work Phone: Mental Status Date Assessment Result Facility 06-08-2024 Mental Status Oriented x 4 [facility] 08-21-2023 Cognitive function Level Of Cons ciousness Awake;Alert;Appropriate [facility] Work Phone: 08-10-2023 Cognitive function Voice/Name [facility] Work Phone: Clinical Notes 08-05-2023 to 03-14-2025 LaboratoryRadiologyDischarge Erica Hopkins MD MPH - 03/07/2024 1:05 PM Kiko Hopkins MD MPH - 03/07/2024 1:05 PM Trinidad Rosales - 03/06/2024 9:39 AM EDTDischarge Instructions Note Date & Type Note Facility 03-14-2025 Radiology Diagnostic study note [facility] Imaging Services [address] [place], [place] [address] CTA Chest W/WO Contrast MR#: [id number] Acct: [id number] Name: MAYTE SWEET Rep #: [id number] : 1945 F 80 From: Zana Apple MD PCP: EUSEBIO CashC Status: REG ER Study:CTA Chest W/WO Contrast Date of Exam: 03/14/25 Exam# [id number] Ordering Dr: Yudith Arias DO PROCEDURE: CTA [...] peribronchial interstitial thickening, probably bronchitis. [facility] CC: MENDEZ Guallpa; Andrez Arias DO ~ Dietary Server: Signed [facility] 06-08-2024 Hospital Discharge instructions Patient Education [...] or higher after 2 days on antibiotics [phone] [employer]. [address] [place] [address]. All rights reserved. This information is not intended as a substitute for professional medical care. Always follow your healthcare professional's instructions. Follow Up Care 06/08/2024 16:08:58 With:ADELINA GUALLAP APRN, CNP Address: [address] [place] [address]- When:2-4 days [facility] 06-08-2024 Note Discharge Instructions Thank you for allowing [facility] to assist you with your healthcare needs. The following is important discharge information regarding your hospital visit. Diagnosis from Today's Visit Cellulitis What to Do Next Instructions from Your Care Team No qualifying data available. Post Acute Orders No qualifying data available. You Need to Schedule the Following Appointments Follow Up with ADELINA GUALLPA APRN, CNP When:Within 2-4 days Where:[address] [place] [address]- Allergies NKA Medications Please ask your primary [...] or higher after 2 days on antibiotics [phone] [employer]. [address] [place] [address]. All rights reserved. This information is not intended as a substitute for professional medical care. Always follow your healthcare professional's instructions. Additional Information VACCINATE! IT SAVES LIVES! Members of the community who have not yet received the COVID-19 vaccine and would like to receive it can visit one of [facility] vaccine clinics. There are many vaccine clinic locations within the [facility]. For locations and available times, please visit [email or web address] [email or web address] It is important to note that some COVID mobile vaccine clinics are held outdoors and may be canceled in rainy or stormy conditions. To learn more about pediatric vaccinations (ages 5-11), we invite you to visit the [facility] webpage. https://www.[facility].org/pa ges/5583-Tpcrm-Bdzybistdmm-Freque fapd-Swmdc-Otidxilfq.html To learn more about the COVID-19 vaccine, we invite you to visit the CDC website for a list of frequently asked questions. https://www.cdc.gov/coronavirus/2 019-ncov/vaccines/faq.html [facility] Patient Portal Access Instructions: Stay connected with your healthcare team and access your personal medical information anytime with the [facility] Patient Portal. If you would like a full copy of your medical records please contact the [facility] Medical Records Department Tuesday through Tuesday between 8a.m. and 4:30p.m. Please follow the directions below to access the portal: 1.Access the email account you provided upon [facility].2.Look for an invitation email from [facility].3.Open the email and access the invitation link: Accept Invitation to [facility]4.Fill in the required batista to create your account. Sign into [email or web address] with your username and password that you [...] you will allow to register on the [facility] Patient Portal for access to your information. You can also access the [facility] Patient Portal on the PageLever. Simply click on Health Records under Health [...] Call your local pharmacy or go to [email or web address] to find one close to you.3.Make use of household items: Use cat litter or old coffee grounds to dispose medications if other options are not available. Mix your drugs with these household products, seal them in an airtight container and throw it into the garbage. Call [facility]: [phone] to be sure your drugs can be [...] aware that I should contact my doctor. Patient/Contracting Specialist Signature: Date/Time: Relationship to Patient: ____ Witness Name/Signature: Date/Time: [facility] 06-08-2024 Note Discharge Instructions Thank you for allowing [facility] to assist you with your healthcare needs. The following is important discharge information regarding your hospital visit. Diagnosis from Today's Visit Cellulitis What to Do Next Instructions from Your Care Team No qualifying data available. Post Acute Orders No qualifying data available. You Need to Schedule the Following Appointments Follow Up with ADELINA GUALLPA APRN, CNP When:Within 2-4 days Where:[address] [facility] [place] [address]- Allergies NKA Medications Please ask [...] or higher after 2 days on antibiotics [phone] [employer]. [address] [place] [address]. All rights reserved. This information is not intended as a substitute for professional medical care. Always follow your healthcare professional's instructions. Additional Information VACCINATE! IT SAVES LIVES! Members of the community who have not yet received the COVID-19 vaccine and would like to receive it can visit one of [facility] vaccine clinics. There are many vaccine clinic locations within the [facility]. For locations and available times, please visit [email or web address] [email or web address] It is important to note that some COVID mobile vaccine clinics are held outdoors and may be canceled in rainy or stormy conditions. To learn more about pediatric vaccinations (ages 5-11), we invite you to visit the [facility] webpage. https://www.akNetsertive, Incs.org/pa federico/7021-Bnfvz-Bjvcbyahphz-Freque dduk-Xpueu-Hjzapnhkl.html To learn more about the COVID-19 vaccine, we invite you to visit the CDC website for a list of frequently asked questions. https://www.cdc.gov/coronavirus/2 019-ncov/vaccines/faq.html [facility] Patient Portal Access Instructions: Stay connected with your healthcare team and access your personal medical information anytime with the [facility] Patient Portal. If you would like a full copy of your medical records please contact the [facility] Medical Records Department Tuesday through Tuesday between 8a.m. and 4:30p.m. Please follow the directions below to access the portal: 1.Access the email account you provided upon [facility].2.Look for an invitation email from [facility].3.Open the email and access the invitation link: Accept Invitation to [facility]4.Fill in the required batista to create your account. Sign into [email or web address] with your username and password that you [...] you will allow to register on the [facility] Patient Portal for access to your information. You can also access the [facility] Patient Portal on the PageLever. Simply click on Health Records under Health Data and then click on the [employer] logo. HOW TO SAFELY DISPOSE OF PRESCRIPTION [...] Call your local pharmacy or go to [email or web address] to find one close to you.3.Make use of household items: Use cat litter or old coffee grounds to dispose medications if other options are not available. Mix your drugs with these household products, seal them in an airtight container and throw it into the garbage. Call [facility]: [phone] to be sure your drugs can be [...] aware that I should contact my doctor. Patient/Contracting Specialist Signature: Date/Time: Relationship to Patient: ____ Witness Name/Signature: Date/Time: [facility] 05-29-2024 Evaluation + Plan note Future Scheduled [...] 06/07/24BD Bone Density DEXA Axial Skeleton 09/14/23 [facility] 03-07-2024 Hospital Discharge instructions Olena Perera MD [...] office Evenings and weekends: call the hospital tube former operator and ask for the urology resident on-call. In case of emergency, call [phone]. Follow-up appointment: You will receive a phone call with your follow-up appointment details if one has not already been scheduled for you. Please call if you need to reschedule. Future Appointments Date Time Provider Department Center 03/13/2024 10:50 AM Braden Hopkins MD MPH [id number] Academic documented in this encounter [facility] Work Phone: 03-07-2024 Attending History and physical [...] spectrum which must be considered as LG statistical assistant. Cystoscopy was performed 02/14/2024 and stents were [...] with cystoscopy and ureteroscopy and putting five liberian up to level of tumor to help [...] the presence of Braden Hopkins MD MPH. [facility] Work Phone: 03-07-2024 History and physical note [...] spectrum which must be considered as LG statistical assistant. Cystoscopy was performed 02/14/2024 and stents were [...] with cystoscopy and ureteroscopy and putting five liberian up to level of tumor to help [...] Hopkins MD MPH. documented in this encounter [facility] Work Phone: 03-06-2024 History of Present illness Narrative Pharmacy Medication History Review Mayte Sweet is a 79 y.o. 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 Pharmacy called the patient prior to their scheduled procedure and reviewed the patient's duawz-zr-tzkzdwsux medications for accuracy. Medications ADDED: none Medications [...] Below are additional concerns with the patient's DENTAL ASSISTANT list. Patient has a recent fill of vitamin d3 50,000U, but states they have NOT started medication Shanthi Rosales [facility] Please reach out via Secure Chat for questions documented in this encounter [facility] Work Phone: 03-02-2024 Evaluation + Plan note [...] with cystoscopy and ureteroscopy and putting five liberian up to level of tumor to help localize that. Will do bowel prep in case there are any issues. [facility] Work Phone: 03-02-2024 Miscellaneous Notes Associated Problem(s): [...] with cystoscopy and ureteroscopy and putting five liberian up to level of tumor to help localize that. Will do bowel prep in case there are any issues. documented in this encounter [facility] Work Phone: 03-02-2024 History of Present illness [...] spectrum which must be considered as LG statistical assistant. Cystoscopy was performed 02/14/2024 and stents were [...] with cystoscopy and ureteroscopy and putting five liberian up to level of tumor to help [...] Hopkins MD MPH. documented in this encounter [facility] Work Phone: 02-14-2024 Evaluation + Plan note [...] that radiates to groin, nausea/vomiting, or confusion. [facility] Work Phone: 02-14-2024 Miscellaneous Notes Associated Problem(s): [...] nausea/vomiting, or confusion. documented in this encounter [facility] Work Phone: 02-14-2024 History of Present illness [...] proliferation. 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 She underwent [...] spectrum which must be considered as LG statistical assistant. She has history of ex-lap done through [...] Hopkins MD MPH. documented in this encounter [facility] Work Phone: 01-13-2024 History of Present illness Narrative Subjective Mayte Sweet is a 78 y.o. female with a 2cm mid to lower pole R ureteral mass s/p URS who presents for POV. Patholog pathologists determined this to be atypical proliferation. 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 She underwent [...] spectrum which must be considered as LG statistical assistant. She has history of ex-lap done through [...] to surgery which can be done at [place]. Surgery at [facility]. Follow up for pre operative visit will be scheduled. Scribe Attestation By signing my name below, I, Saumya Delia Daniel attest that this documentation has been prepared under the direction and in the presence of Braden Hopkins MD MPH. documented in this encounter [facility] Work Phone: 12-26-2023 Hospital Discharge instructions Britany Morales MD - 12/26/2023 3:47 PM EDT DEPARTMENT OF Urology DISCHARGE INSTRUCTIONS -- Ureteroscopy, Biopsy, Tumor Ablation, Stent Exchange Outpatient Surgery C O N F I D E N T I A L I N F O R M A T I O N Mayte Sweet Call [phone] during regular daytime business hours (8:00 am [...] occur, please contact your doctor's office at [phone]. Any fever higher than 100.4, especially if [...] room/contact your physician. documented in this encounter [facility] Work Phone: 12-26-2023 Attending History and physical [...] proliferation. 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 She underwent [...] the presence of Braden Hopkins MD MPH. [facility] Work Phone: 12-26-2023 Attending History and physical [...] proliferation. 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 She underwent [...] the presence of Braden Hopkins MD MPH. [facility] Work Phone: 12-26-2023 History and physical note [...] proliferation. 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 She underwent [...] proliferation. 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 She underwent [...] Hopkins MD MPH. documented in this encounter [facility] Work Phone: 12-02-2023 Evaluation + Plan note [...] patient understands and agrees with this plan. [facility] Work Phone: 12-02-2023 Miscellaneous Notes Associated Problem(s): [...] with this plan. documented in this encounter [facility] Work Phone: 12-02-2023 History of Present illness Narrative Subjective Mayte Sweet is a 78 y.o. female with a 2cm mid to lower pole R ureteral mass s/p URS who presents for POV. Patholog pathologists determined this to be atypical proliferation. 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 She underwent [...] Hopkins MD MPH. documented in this encounter [facility] Work Phone: 11-07-2023 Hospital Discharge instructions Hesham Durbin MD - 11/07/2023 1:15 PM EDT DEPARTMENT OF Urology DISCHARGE INSTRUCTIONS Ureteroscopy Outpatient Surgery C O N F I D E N T I A L I N F O R M A T I O N Mayte Sweet Call [phone] during regular daytime business hours (8:00 am [...] occur, please contact your doctor's office at [phone]. Any fever higher than 100.4, especially if [...] will be removed. documented in this encounter [facility] Work Phone: 11-07-2023 Note Formatting of this n ote is different from the original. Selective cystology, Ureteroscopy with ureteral biopsy and tumor ablation, right ureteral stent exchange (R) Operative Note Date: 11/07/2023 OR Location: [facility] OR Name: Mayte Sweet, : 1945, Age: 78 y.o., , Sex: female Diagnosis Pre-op Diagnosis * Mass of ureter [N28.89] Post-op Diagnosis * Mass of ureter [N28.89] Procedures Selective cystology, Ureteroscopy with ureteral biopsy and tumor ablation, right ureteral stent exchange 13288 - DE CYSTO W/URTROSCOPY&/PYELOSCOPY DX CHG UROGRAPHY RETROGRADE WITH/WO KUB [50988] DE CYSTO W/INSERT URETERAL STENT [74184] DE CYSTO/PYELOSCOPY RESCJ PELVIC TUMOR [34142] Surgeons * Braden Hopkins - Primary Resident/Fellow/Other Artificial Breeding Technician: Surgeons and Role: * Hesham Durbin MD - Assisting Procedure Summary Anesthesia: General ASA: III Anesthesia Staff: Anesthesiologist: Shreya Collins MD HEEL REDUCER: Derek Arceo APRN-HEEL REDUCER C-AA: AKANKSHA Will Estimated Blood Loss: 5mL [...] Braden Hopkins MD MPH 11/07/2023 1225 Staff: Automobile Service Station Manager: Atilio Fang RN Relief Automobile Service Station Manager: Jeanie Huerta RN Relief Scrub: Kim Isaac RN Scrub Person: Cain Vidal; Jeanine Bowden RN Drains and/or Catheters: * None in log * Tourniquet Times: Implants: Implants Type Name Action Serial No. Stent STENT, INLAY OPTIMA, 6FR X 24CM - [id number] - [id number] Implanted [id number] Findings: 2-3 tumor at pelvic brim. Incomplete [...] stable. Condition: stable Attending Attestation: Braden Hopkins [facility] Work Phone: 11-07-2023 Miscellaneous Notes Selective cystology, Ureteroscopy with ureteral biopsy and tumor ablation, right ureteral stent exchange (R) Operative Note Date: 11/07/2023 OR Location: [facility] OR Name: Mayte Sweet, : 1945, Age: 78 y.o., , Sex: female Diagnosis Pre-op Diagnosis * Mass of ureter [N28.89] Post-op Diagnosis * Mass of ureter [N28.89] Procedures Selective cystology, Ureteroscopy with ureteral biopsy and tumor ablation, right ureteral stent exchange 23734 - DE CYSTO W/URTROSCOPY&/PYELOSCOPY DX CHG UROGRAPHY RETROGRADE WITH/WO KUB [93751] DE CYSTO W/INSERT URETERAL STENT [48189] DE CYSTO/PYELOSCOPY RESCJ PELVIC TUMOR [57244] Surgeons * Braden Hopkins - Primary Resident/Fellow/Other Artificial Breeding Technician: Surgeons and Role: * Hesham Durbin MD - Assisting Procedure Summary Anesthesia: General ASA: III Anesthesia Staff: Anesthesiologist: Shreya Collins MD HEEL REDUCER: Derek Arceo APRN-HEEL REDUCER C-AA: AKANKSHA Will Estimated Blood Loss: 5mL [...] CONSULTATION (NON-GYNECOLOGIC) Braden Hopkins MD MPH 11/07/2023 0604 2 : RIGHT UPPER TRACT TUMOR Tissue URETER BIOPSY RIGHT SURGICAL PATHOLOGY EXAM Braden Cornelius Hopkins MD MPH 11/07/2023 1225 Staff: Automobile Service Station Manager: Atilio Fang RN Relief Automobile Service Station Manager: Jeanie Huerta RN Relief Scrub: Kim Isaac RN Scrub Person: Cain Vidal; Jeanine Bowden RN Drains and/or Catheters: * None in log * Tourniquet Times: Implants: Implants Type Name Action Serial No. Stent STENT, INLAY OPTIMA, 6FR X 24CM - [id number] - [id number] Implanted [id number] Findings: 2-3 tumor at pelvic brim. Incomplete [...] Attestation: Braden Hopkins documented in this encounter [facility] Work Phone: 11-07-2023 Attending History and physical [...] would like to request her imaging from [place] prior to moving forward with diagnostic ureteroscopy [...] of this patient. Plan: Request imaging from [place] If unable to obtain or not appropriate, order CT urogram Plan for diagnostic ureteroscopy and possible bx Scribe Attestation By signing my name below, IZo Scribe attest that this documentation has been prepared under the direction and in the presence of Braden Hopkins MD MPH. [facility] Work Phone: 11-07-2023 History and physical note [...] would like to request her imaging from [place] prior to moving forward with diagnostic ureteroscopy [...] of this patient. Plan: Request imaging from [place] If unable to obtain or not appropriate, order CT urogram Plan for diagnostic ureteroscopy and possible bx Scribe Attestation By signing my name below, I, Zo Cortez, Scribe attest that this documentation has been prepared under the direction and in the presence of Braden Hopkins MD MPH. documented in this encounter [facility] Work Phone: 10-14-2023 Evaluation + Plan note [...] would like to request her imaging from [place] prior to moving forward with diagnostic ureteroscopy with potential biopsy to assess the ureter and determine whether this mass is multi-focal and if endoscopic management is possible. If I am unable to obtain this or it is inappropriate for our needs, we discussed moving forward with imaging through a CT urogram. The patient understands and agrees with this plan. [facility] Work Phone: 10-14-2023 Miscellaneous Notes Associated Problem(s): [...] would like to request her imaging from [place] prior to moving forward with diagnostic ureteroscopy with potential biopsy to assess the ureter and determine whether this mass is multi-focal and if endoscopic management is possible. If I am unable to obtain this or it is inappropriate for our needs, we discussed moving forward with imaging through a CT urogram. The patient understands and agrees with this plan. documented in this encounter [facility] Work Phone: 10-14-2023 History of Present illness [...] Hopkins MD MPH. documented in this encounter [facility] Work Phone: 10-02-2023 Note . MICRO - Microbiology PROCEDURE: Urine Culture [*1] SOURCE: Urine, Clean Catch BODY SITE: COLLECTED DATE/TIME: 09/30/2023 17:01 EDT RECEIVED DATE/TIME: 10/01/2023 13:18 EDT START DATE/TIME: 10/01/2023 13:18 EDT FREE TEXT SOURCE: FINAL REPORTS Final Report [] Verified Date/Time/Personnel: 10/02/2023 09:09 EDT <10,000 cfu/ml. No Significant growth. Sensitivity not indicated. Performing Locations *1: This test was performed at: [facility], [address] [place] [address], [address] , [facility] ([place]) 08-10-2023 Discharge summary Note Date/Time August 10, 2023 10:53am [facility] Medical Records Department [address] [place] [address] Instructions for Home/Discharge Instructions 08/10/23 1052 MR#: [id number] Acct: [id number] Name: MAYTE SWEET Rep #:[id number] : 1945 78 From: Hesham roman MD [...] MD; Dr. Art Alcaraz MD ~ Signed [facility] Work Phone: 1(380) 812-186302-14-2024 Consult note Author Roshan Simon [facility] August 10, 2023 8:04am Note Date/Time August 10, 2023 8:04am [facility] Medical Records Department [address] [place] [address] Consultation 08/10/23 0803 MR#: [id number] Acct: [id number] Name: MAYTE SWEET Rep #:[id number] : 1945 78 From: Roshan Simon MD PCP: MENDEZ Cash Sta tus:ADM IN Location: [place] [address] Consult Date of Consult: 08/10/23 Reason for [...] Pa MD; Dr. Art Alcaraz MD~ Signed [facility] Work Phone: 1(843) 208-507502-13-2024 Progress note Author Baldev Gaxiola [facility] August 09, 2023 1:41pm Note Date/Time August 09, 2023 12:18pm [facility] Medical Records Department [address] [place] [address] Progress Note - Hospitalist 08/09/23 1218 MR#: [id number] Acct: [id number] Name: MAYTE SWEET Rep #:[id number] : 1945 78 From: Baldev aquino DO PCP: MENDEZ Cash tus:ADM IN Location: [place] [address] Reason for Visit Reason for Visit: Diagnoses [...] 08/06/23 11:51 AG (Rec: 08/06/23 11:51 AG [id number]) Nutrition Malnutrition Evidence of Malnutrition Exists Yes [...] Physician: Baldev Gaxiola Performed By: Chalo Atkins [facility] Abdomen/Pelvis CT 08/08/23 12:36 IMPRESSION: 5.0 mm [...] is a 78-year-old female who presented to [facility] ED on 08/05/2023 with fever/chills, generalized [...] 35 minutes. Charges/Coding Visit Charges Inpatient E&M: 76393 Subs Hosp L2 08/09/23 1341 <Electronically signed by Baldev Gaxiola DO> Cosigner Signature (if applicable): CC: ~ Signed [facility] Work Phone: 1(512) 225-869802-13-2024 Consult note Author Roshan Simon [facility] August 09, 2023 12:10pm Note Date/Time August 09, 2023 6:13am [facility] Medical Records Department [address] [place] [address] Consultation - Urology 08/09/23608 MR#: [id number] Acct: [id number] Name: MAYTE SWEET Rep #:[id number] : 1945 78 From: Roshan Simon MD PCP: EUSEBIO CashC Elmer tus:ADM IN Location: [place] [address] Assessment & Plan Assessment/Plan (1) Sepsis: (2) [...] sup called, npo now and get consent [facility] Medical History (Updated 08/09/23 @ [...] mg-vit E 90 mg-zinc 40 mg-copper 1 px-laqezn-oefvof capsule (PreserVision AREDS-2) 1 tab PO BID [...] Protocol: Document 08/06/23 11:51 (Rec: 08/06/23 11:51 [id number]) Nutrition Malnutrition Evidence of Malnutrition Exists Yes [...] 13:48 EST Reading Location ID and State: [facility] / [place] , Service support , 08/09/23 0613 <Electronically [...] MD; Dr. Art Alcaraz MD ~* Signed [facility] Work Phone: 1(787) 781-120202-13-2024 Procedure [facility] 08-08-2023 Progress [facility] August 08, 2023 5:16pm Note Date/Time August 08, 2023 2:24pm [facility] Medical Records Department [address] [place] [address] Progress Note - Hospitalist 08/08/23 1424 MR#: [id number] Acct: [id number] Name: MAYTE SWEET Rep #:[id number] : 1945 78 From: Baldev White cruz JARAMILLO PCP: MENDEZ Cash tus:ADM IN Location: [place] [address] Reason for Visit Reason for Visit: Diagnoses [...] 08/06/23 11:51 AG (Rec: 08/06/23 11:51 AG [id number]) Nutrition Malnutrition Evidence of Malnutrition Exists Yes [...] is a 78-year-old female who presented to [facility] ED on 08/05/2023 with fever/chills, generalized [...] 35 minutes. Charges/Coding Visit Charges Inpatient E&M: 17861 Subs Hosp L2 08/08/23 1716 <Electronically signed by Baldev Gaxiola DO> Cosigner Signature (if applicable): CC: ~ Signed [facility] Work Phone: 1(679) 988-279102-11-2024 Progress note Author Baldev [facility] August 07, 2023 2:48pm Note Date/Time August 07, 2023 2:44pm [facility] Medical Records Department [address] [place] [address] Progress Note - Hospitalist 08/07/23 1441 MR#: [id number] Acct: [id number] Name: MAYTE SWEET Rep #:[id number] : 1945 78 From: Baldev aquino DO PCP: MENDEZ Cash tus:ADM IN Location: [place] [address] Reason for Visit Reason for Visit: Diagnoses [...] 08/06/23 11:51 AG (Rec: 08/06/23 11:51 AG [id number]) Nutrition Malnutrition Evidence of Malnutrition Exists Yes [...] is a 78-year-old female who presented to [facility] ED on 08/05/2023 with fever/chills, generalized [...] 35 minutes. Charges/Coding Visit Charges Inpatient E&M: 76881 Subs Hosp L2 08/07/23 5057 <Electronically signed by Baldev Gaxiola DO> Cosigner Signature (if applicable): CC: ~ Signed [facility] Work Phone: 1(726) 922-280602-11-2024 Progress note Author Baldev Gaxiola [facility] August 07, 2023 2:41pm Note Date/Time August 06, 2023 12:23pm [facility] Medical Records Department [address] [place] [address] Progress Note - Hospitalist 08/06/23 1223 MR#: [id number] Acct: [id number] Name: MAYTE SWEET Rep #:[id number] : 1945 78 From: Baldev White juniorcruz DO PCP: Adelina Guallpa, MENDEZ Payne tus:ADM IN Location: [place] [address] Reason for Visit Reason for Visit: Diagnoses [...] 08/06/23 11:51 AG (Rec: 08/06/23 11:51 AG [id number]) Nutrition Malnutrition Evidence of Malnutrition Exists Yes [...] 93.6 H, Lymph % (Auto) 3.1 L, [place] % (Auto) 2.3, Eos % (Auto) 0.0, [...] Clarity Clear, Urine pH 6.5, Ur Specific [place] 1.010, Urine Protein 30 H, Urine Glucose [...] 85.7 H, Lymph % (Auto) 9.0 L, [place] % (Auto) 4.1, Eos % (Auto) 0.0, [...] is a 78-year-old female who presented to [facility] ED on 08/05/2023 with fever/chills, generalized weakness and reported hyperglycemia at home. 1. Sepsis without shock secondary to UTI, improving Presented with fever to 102.2F, tachycardia, elevated respiratory rate, leukocytosis, mild WGYN in setting of presumed UTI. UA showed [...] 35 minutes. Charges/Coding Visit Charges Inpatient E&M: 46041 Subs Hosp L2 08/07/23 1441 <Electronically signed by Baldev Gaxiola DO> Cosigner Signature (if applicable): CC: ~ Signed [facility] Work Phone: 1(934) 183-700402-11-2024 Progress note Author Art Alcaraz [facility] August 07, 2023 3:26am Note Date/Time August 07, 2023 3:24am [facility] Medical Records Department [address] [place] [address] Progress Note - Hospitalist 08/07/23323 MR#: [id number] Acct: [id number] Name: MAYTE SWEET Rep #:[id number] : 1945 78 From: Art Reyes PCP: MENDEZ Cash tus:ADM IN Location: [place] [address] Hospitalist Note Patient was tachycardic, once heart [...] Cosigner Signature (if applicable): CC: ~ Signed [facility] Work Phone: 1(137) 490-537202-10-2024 Discharge summary Author Virginia Gu [facility] August 05, 2023 11:51pm Note Date/Time August 05, 2023 6 :05pm [facility] Medical Records Department [address] [place] [address] Emergency Department Summary 08/05/23 MR#: [id number] Acct: [id number] Name: MAYTE SWEET Rep #:[id number] : 1945 78 From: Virginia Gu MD PCP: MENDEZ Cash tus:ADM IN Location: [place] [address] HPI History of Present Illness Chief Complaint: [...] other than urinary frequency with her hyperglycemia. [facility] Medical History Bowel obstruction COPD (chronic [...] mg-vit E 90 mg-zinc 40 mg-copper 1 wk-ebsmto-xynccu capsule (PreserVision AREDS-2) 1 tab PO BID [...] Medical decision making narrative: Patient placed on nurse monitoring. IV line initiated. IV fluids given along [...] 93.6 H Lymph % (Auto) 3.1 L [place] % (Auto) 2.3 Eos % (Auto) 0.0 [...] Clarity Clear Urine pH 6.5 Ur Specific [place] 1.010 Urine Protein 30 H Urine Glucose [...] Adelina Guallpa NP Referrals: Adelina Guallpa NP, [facility] [Primary Care Provider] - Disposition Disposition: [facility] [place] [facility] What to do if you have Problems For any increased pain, shortness of breath, bleeding, nausea or vomiting, chestpain, or any unexpected problems, contact your Primary Care Provider. Call [facility] ([phone]) or report to the closest Emergency Room. Call 911 if necessary. 08/05/23 7091 <Electronically signed by Virginia Gu MD> Cosigner Signature (if applicable): CC: MENDEZ Guallpa ~ Signed [facility] Work Phone: 1(874) 725-427902-09-2024 History and physical note Author Art Alcaraz [facility] August 05, 2023 9:29pm Note Date/Time August 05, 2023 9 :04pm [facility] Medical Records Department [address] [place] [address] H&P Exam - Hospitalist 08/05/232033 MR#: [id number] Acct: [id number] Name: MAYTE SWEET Rep #:[id number] : 1945 78 From: Art Reyes PCP: MENDEZ Cash tus:ADM IN Location: [place] [id number] HPI - General General Date of [...] COVID couple weeks ago and she recovered. [facility] Medical History Bowel obstruction COPD [...] mg-vit E 90 mg-zinc 40 mg-copper 1 ye-wwtltg-watcpk capsule (PreserVision AREDS-2) 1 tab PO BID [...] 93.6 H, Lymph % (Auto) 3.1 L, [place] % (Auto) 2.3, Eos % (Auto) 0.0, [...] Clarity Clear, Urine pH 6.5, Ur Specific [place] 1.010, Urine Protein 30 H, Urine Glucose [...] She does not have Camilo power of litigation attorney associate for health. Her next of kin is her . After discussion of benefits/risks procedures involved with full code, DNR CC arrest and DNR CC, the patient optedfor DNRCC arrest with no intubation Patient doesN'T want artificial life support including intubation, tube feed, ventilator and/chest compression, central venous catheter, vasopressor and DC shock if needed Total time spent in lokc-gn-nbic encounter in discussion of advanced directive 17 minutes. Charges/Coding Visit Charges Inpatient E&M: 74726 Init Hosp L3 Procedures Hospitalists Procedures: 81152 Advncd Care Plan 30 Min 08/05/232128 <Electronically signed by Art Alcaraz MD> Cosigner Signature (if applicable): CC: MENDEZ Guallpa; Dr. Art Alcaraz MD~ Signed [facility] Work Phone: Consult note Author Fe Ceron [facility] August 10, 2023 11:35am Note Date/Time August 10, 2023 11:35am [facility] Medical Records Department [address] [place] [address] Counseling Note - Pharmacy 08/10/23 1134 MR#: [id number] Acct: [id number] Name: MAYTE SWEET Rep #:[id number] : 1945 78 From: Fe Ceron PCP: MENDEZ Cash tus:ADM IN Y Location: [place] [address] Pharmacy [facility] Pharm[facility] Service has performed discharge medication reconciliation [...] understanding of their dischargemedications. Patient counseled by instructor adjunct pharmacy technicianMarc. Medications at Discharge Home Medications glimepiride 2 mg tablet 2 mg PO DAILY dm 09/13/19 simvastatin 40 mg tablet 40 mg PO QHS cholesterol 09/13/19 vit C 250 mg-vit E 90 mg-zinc 40 mg-copper 1 sl-rxbjyi-dahvsp capsule (PreserVision AREDS-2) 1 tab PO BID 01/13/21 cholecalciferol (vitamin D3) 1,250 mcg (50,000 unit) capsule 1,250 mcg PO .MONTHLY supplement 08/05/23 losartan 25 mg tablet 25 mg PO DAILY bp 08/05/23 metformin 750 mg tablet,extended release 24 hr 750 mg PO DAILY dm 08/05/23 cefdinir 300 mg capsule 300 mg PO BID 7 days #14 caps 08/10/23 08/10/23 [id number] <Electronically signed by Fe Ceron> Date _ Fe Ceron Cosigner Signature (if applicable): Date CC: ~ Signed [facility] Work Phone: Discharge summary Author Fabrizio Sanz [facility] August 21, 2023 6:58am Note Date/Time August 21, 2023 5:26am [facility] Medical Records Department [address] [place] [address] Emergency Department Summary 08/21/23 MR#: [id number] Acct: [id number] Name: MAYTE SWEET Rep #:[id number] : 1945 78 From: Fabrizio Sanz MD [...] while so she does not have it. [facility] Medical History Anemia Bowel obstruction COPD (chronic [...] mg-vit E 90 mg-zinc 40 mg-copper 1 mq-lsujew-xdmhdw capsule (PreserVision AREDS-2) 1 tab PO BID [...] the end. I printed off information from [employer] terms of foods to eat [...] (Auto) 75.7 H Lymph % (Auto) 19.1 [place] % (Auto) 4.4 Eos % (Auto) 0.0 [...] Days Qty: 14 0RF Primary Care Provider: Adelian Guallpa NP Referrals: Adelina Guallpa NP, HOSE MENDER-C [Primary Care Provider] - 3-5 Days Activity [...] your Primary Care Provider. Call [facility] ([phone]) or report to the closest Emergency Room. Call 911 if necessary. 08/21/23 0658 <Electronically signed by Fabrizio Sanz MD> Cosigner Signature (if applicable): CC: HOSE MENDER-C Adelina Guallpa ~ Signed [facility] Work Phone: Evaluation + Plan note Future Appointments Appointment Date:05/15/2021 02:00:00 PM Scheduled Provider:ADELINA GUALLPA APRN, CNP Location:[facility] Appointment Type: OV Follow Up [facility] Evaluation + Plan note Future Appointments Appointment Date:05/11/2022 10:20:00 AM Scheduled Provider:ADELINA GUALLPA APRN, CNP Location:[facility] Appointment Type:PC OV Future Scheduled Tests Laboratory* Microalbumin Level Urine 05/16/22 Radiology* MA Mammo Screening Bilateral w/ Adonis 11/13/21 * BD Bone Density DEXA Axial Skeleton 11/13/21 [facility] Evaluation + Plan note Future Appointments Appointment Date:11/11/2022 10:40:00 AM Scheduled Provider:ADELINA GUALLPA APRN, CNP Location:[facility] Appointment Type:PC OV Follow Up Future Scheduled Tests Laboratory* Microalbumin Level Urine 11/08/22 * Microalbumin Level Urine 05/16/22 Radiology* MA Mammo Screening Bilateral w/ Adonis 11/13/21 * BD Bone Density DEXA Axial Skeleton 11/13/21 [facility] Evaluation + Plan note Future Appointments Appointment Date:05/12/2023 10:40:00 AM Scheduled Provider:ADELINA GUALLPA APRN, CNP Location:[facility] Appointment Type:PC OV Follow Up Future Scheduled Tests Laboratory* Microalbumin Level Urine 11/08/22 * Microalbumin Level Urine 05/16/22 [facility] Evaluation + Plan note Future Appointments Appointment Date:09/13/2023 02:20:00 PM Scheduled Provider:ADELINA GUALLPA APRN, CNP Location:[facility] Appointment Type:PC OV Follow Up Appointment Date:11/17/2023 09:00:00 AM Scheduled Provider: Location:[facility] Appointment Type:PC Nurse Lab Appointment Date:11/22/2023 09:00:00 AM Scheduled Provider:ADELINA GUALLPA APRN, CNP Location:[facility] Appointment Type:PC OV Follow Up Diagnostic [...] Level 11/21/23 * Complete Metabolic Panel 11/21/23 [facility] Evaluation + Plan note Future Appointments Appointment Date:11/10/2023 10:15:00 AM Scheduled Provider:JULIUS BENJAMIN MD Location:[facility] Appointment Type:ENDO OV Appointment Date:11/17/2023 09:00:00 AM Scheduled Provider: Location:[facility] Appointment Type:PC Nurse Lab Appointment Date:11/22/2023 09:00:00 AM Scheduled Provider:ADELINA GUALLPA APRN, CNP Location:[facility] Appointment Type:PC OV Follow Up Future [...] BD Bone Density DEXA Axial Skeleton 09/14/23 [facility] Evaluation + Plan note Future Appointments Appointment Date:11/22/2023 09:00:00 AM Scheduled Provider:ADELINA GUALLPA APRN, CNP Location:[facility] Appointment Type:PC OV Follow Up Future [...] BD Bone Density DEXA Axial Skeleton 09/14/23 [facility] Evaluation + Plan note Future Appointments Appointment Date:08/02/2024 01:00:00 PM Scheduled Provider:ADELINA GUALLPA APRN, CNP Location:[facility] Appointment Type:PC OV Future Scheduled Tests [...] BD Bone Density DEXA Axial Skeleton 09/14/23 [facility] evaluation + Plan note Future Appointments Appointment Date:02/21/2025 09:00:00 AM Scheduled Provider:ADELINA GUALLPA APRN, CNP Location:[facility] Appointment Type:PC OV Follow Up Future Scheduled Tests Radiology* XR Foot Minimum 3 Views Left 06/07/24 [facility] Evaluation note* Diagnosis Onset Date Resolution Status Elevated troponin acute Gram-negative bacteremia acu te Hyperglycemia acute Sepsis acute Ureteral stone acute UTI (urinary tract infection) [facility] Work Phone: Evaluation note* Diagnosis Ureteral mass- Primary Mass of ureter documented in this encounter [facility] Work Phone: Evaluation note* Diagnosis Mass of [...] urea nitrogen (BUN) documented in this encounter [facility] Work Phone: Evaluation note* Diagnosis Ureteral mass documented in this encounter [facility] Work Phone: Evaluation note* Diagnosis Ureteral mass documented in this encounter [facility] Work Phone: Evaluation note* Diagnosis Carcinoma of right ureter (Multi)- Primary Asymptomatic microscopic hematuria documented in this encounter [facility] Work Phone: Evaluation note* Diagnosis Ureteral mass- Primary Mass of ureter Carcinoma of right ureter (Multi)- Primary Asymptomatic microscopic hematuria Urothelial carcinoma of kidney, 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, right (Multi) documented in this encounter [facility] Work Phone: Evaluation note* Diagnosis Ureteral mass- Primary Mass of ureter Carcinoma of right ureter (Multi)- Primary Asymptomatic microscopic hematuria Urothelial carcinoma of kidney, 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, right (Multi) documented in this encounter [facility] Work Phone: Evaluation note* Diagnosis Ureteral mass- Primary Mass of ureter Carcinoma of right ureter (Multi)- Primary Asymptomatic microscopic hematuria Urothelial carcinoma of kidney, 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 documented in this encounter [facility] Work Phone: Evaluation note* Diagnosis Ureteral mass- Primary Mass of ureter Carcinoma of right ureter (Multi)- Primary Asymptomatic microscopic hematuria Carcinoma of right ureter (Multi)- Primary Asymptomatic microscopic hematuria documented in this encounter [facility] Work Phone: Evaluation note* 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 Stop your 750 mg of metformin. See your doctor within the next week. You still may need a new medication. They may restart the glimepiride that you used to be taking.[facility] Work Phone: Hospital Discharge instructionsAdditional Instructions [...] [facility] note No data available for this section [facility] Reason for referral (narrative)No reason for referral information [facility] Work Phone: Reason for visit Narrative* Auth/Cert Specialty Diagnoses / Procedures Referred By Twan t Referred To Contact Diagnoses Urothelial carcinoma of kidney, right (Multi) Urothelial carcinoma of kidney, 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] Procedures DE LAPAROSCOPY NEPHRECTOMY W/TOTAL URETERECTOMY DE ANASTOMSIS OF URETER DE CYSTO W/INSERT URETERAL STENT DE CYSTO W/URTROSCOPY&/PYELOSCOPY DX Robotic Assisted Nephroureterectomy Braden Hopkins MD [facility] [address] [place] [address] [facility] [place] [address] [place] [address] Referral ID Status Reason Start Date Expiration Date Visits Re quested Visits Authorized [id number] 1 1 [facility] Work Phone: Chief Complaint and Reason for [...] Will No August 05 10:20pm Power of Infrastructure Manager No August 05, 2023 10:20pm Advance Directive Response Recorded Date/ Time Living Will No August 21 5:09am Power of Infrastructure Manager No August 21, 2023 5:09am Date Activated Date Inactivated Comments 11/07/2023 10:32 AM Date Activated Date Inactivated Comments 11/07/2023 10:32 AM Date Activated Date Inactivated Comments 12/26/2023 11:20 AM Date Activated Date Inactivated Comments 11/07/2023 10:32 AM 12/26/2023 11:20 AM Advance Directive Response Recorded Date/ Time Do you have a Healthcare Power of Infrastructure Manager? No March 14, 2025 1:04am Reason for Referral Specialty Diagnoses / Procedures Referred By Contac t Referred To Contact Diagnoses Carcinoma of right ureter (Multi) Procedures ECG 12 lead Braden Hopkins [place] M[facility] [address] [facility] [place] [phone] Referral ID Status Reason Start Date Expiration Date V isits Requested Visits Authorized [id number] Authorized 01/15/2024 01/14/2025 1 1 Specialty Diagnoses / Procedures Referred By Contac t Referred To Contact Radiology Diagnoses Ureteral mass Procedures CT urography w 3D volume rendered imaging [place] M[facility] [address] [facility] [place] [address] Referral ID Status Reason Start Date Expiration Date Visits Requested Visits Authorized [id number] Authorized Perform Procedure 11/09/2023 11/08/2024 1 1 Specialty Diagnoses / Procedures Referred By Contac t Referred To Contact Diagnoses Ureteral mass Procedures ECG 12 lead Braden Hopkins [facility] [address] [facility] [place] [address] Referral ID Status Reason Start Date Expiration Date V isits Requested Visits Authorized [id number] Authorized 10/14/2023 10/13/2024 1 1 Summary Purpose Additional Source Comments Care Team (unrecognized sect ion and content) Team Status: Active Member Role Status Dates Adelina uGallpa Family Provider Active Adelina Guallpa HOSE MENDER, HOSE MENDER-C Primary Care Provider Active Team Status: Active Member Role Status Dates Adelina Guallpa HOSE MENDER, HOSE MENDER-C Primary Care Provider Active Dr. Virginia Gu MD Emergency Provider Active Dr. Art Alcaraz MD Admit Provider, A ttending Provider, Other Provider Active Team Status: Active Member Role Status Dates Adelina Guallpa HOSE MENDER, HOSE MENDER-C Primary Care Provider Active Dr. Virginia Gu MD Emergency Provider Active Dr. Art Alcaraz MD Admit Provider, A ttending Provider, Other Provider Active Dr. Baldev Gaxiola DO Other Provider Active Team Status: Active Member Role Status Dates Adelina Guallpa HOSE MENDER, HOSE MENDER-C Primary Care Provider Active Dr. Virginia Gu MD Emergency Provider Active Dr. Art Alcaraz MD Admit Provider, Other Provider Active Dr. Baldev Gaxiola DO Attending Provider, Other Provider Active Team Status: Active Member Role Status Dates Adelina Guallpa HOSE MENDER, HOSE MENDER-C Primary Care Provider Active Dr. Toby Benitez MD Attending Provider Activ e Team Status: Active Member Role Status Dates Adelina Guallpa HOSE MENDER, HOSE MENDER-C Primary Care Provider Active Dr. Virginia Gu MD Emergency Provider Active Dr. Art Alcaraz MD Admit Provider, Other Provider Active Dr. Baldev Gaxiola DO Attending Provider, Other Provider Active Dr. Roshan Simon MD Other Provider Active Team Status: Inactive Member Role Status Dates Adelina Guallpa HOSE MENDER, HOSE MENDER-C Primary Care Provider Active Dr. Virginia Gu MD Emergency Provider Active Dr. Art Alcaraz MD Admit Provider, Other Provider Active Dr. Roshan Simon MD Other Provider Active Dr. Hesham Solomon MD Attending Provider Active Dr. Baldev Gaxiola DO Other Provider Active Team Status: Active Member Role Status Dates Adelina Guallpa HOSE MENDER, HOSE MENDER-C Primary Care Provider Active Dr. Virginia Gu MD Emergency Provider Active Dr. Art Alcaraz MD Admit Provider, Other Provider Active Dr. Roshan Simon MD Other Provider Active Dr. Hesham Solomon MD Attending Provider, Other Provider Active Dr. Baldev Gaxiola DO Other Provider Active Team Status: Inactive Member Role Status Dates Adelina Guallpa HOSE MENDER, HOSE MENDER-C Primary Care Provider Active Dr. Fabrizio Sanz MD Emergency Provider Active Team Status: Inactive Member Role Status Dates Adelina Guallpa HOSE MENDER, HOSE MENDER-C Primary Care Provider Active Dr. Fabrizio Sanz MD Attending Provider, Emergency Provider Active Team Status: Inactive Member Role Status Dates Adelina Guallpa HOSE MENDER, HOSE MENDER-C Primary Care Provider Active Dr. Roshan Simon MD Attending Provider, Referr ing Provider Active Application Infrastructure Engineer Relationship Specialty Start Date End Date Adelina Guallpa, BEATER WORKER [facility] [address] [facility] [address] PCP - General Family Medicine 10/14/23 Application Infrastructure Engineer Relationship Specialty Start Date End Date Adelina Guallpa BEATER WORKER [facility] [address] [facility] [address] PCP - General Family Medicine 10/14/23 Application Infrastructure Engineer Relationship Specialty Start Date End Date Adelina Guallpa, BEATER WORKER [facility] [address] [facility] [address] PCP - General Family Medicine 10/14/23 Application Infrastructure Engineer Relationship Specialty Start Date End Date Adelina Guallpa, BEATER WORKER [facility] [address] [facility] [address] PCP - General Family Medicine 10/14/23 Application Infrastructure Engineer Relationship Specialty Start Date End Date Adelina Guallpa, BEATER WORKER [facility] [address] [facility] [address] PCP - General Family Medicine 10/14/23 Application Infrastructure Engineer Relationship Specialty Start Date End Date Adelina Guallpa [facility] [address] [facility] [address] PCP - General Family Medicine 10/14/23 Application Infrastructure Engineer Relationship Specialty Start Date End Date Adelina Guallpa [facility] [address] [facility] [address] PCP - General Family Medicine 10/14/23 Application Infrastructure Engineer Relationship Specialty Start Date End Date Adelina Guallpa [facility] [address] [facility] [address] PCP - General Family Medicine 10/14/23 Application Infrastructure Engineer Relationship Specialty Start Date End Date Adelina Guallpa [facility] [address] [facility] [address] PCP - General Family Medicine 10/14/23 Application Infrastructure Engineer Relationship Specialty Start Date End Date Adelina Guallpa [facility] [address] [facility] [address] PCP - General Family Medicine 10/14/23 Team Status: Active Member Role/Relationship Status Dates Adelina Guallpa HOSE MENDER, HOSE MENDER-C Primary care physicia n Active Team Status: Inactive Member Role/Relationship Status Dates Adelina Guallpa HOSE MENDER, HOSE MENDER-C Primary care physician Active Start: March 14, 2025 End: March 14, 2025 Dr. Andrez Arias , DO Emergency Departil nt Physician Active Start: March 14, 2025 End: March 14, 2025 Care Team (unrecognized sect ion and content) Care Team Personnel Name: ADELINA GUALLPA BEATER WORKER HELPER - 3D TECHNOLOGIST Position: P4 Advanced Practice Nurse Member Role: Primary Care Physician Address: Address: [address] [facility] [place] [address]- Care Team Related Persons Name: KIM SWEET Address: Home [address] [place], [place] [id number] [place] Reason for Visit (unrecogniz ed section and content) Reason Comments Ureteral Mass Specialty Diagnoses / Procedures Referred By Contac t Referred To Contact Diagnoses Ureteral mass Procedures ECG 12 lead Braden Hopkins [place] [facility] [address] [facility] [place] [phone] Referral ID Status Reason Start Date Expiration Date V isits Requested Visits Authorized [id number] Authorized 10/14/2023 10/13/2024 1 1 Specialty Diagnoses / Procedures Referred By Contac t Referred To Contact Radiology Diagnoses Ureteral mass Procedures CT urography w 3D volume rendered imaging [place] [facility] [id number] Replaced By [facility] Department of Urology [place] [phone] Referral ID Status Reason Start Date Expiration Date Visits Requested Visits Authorized [id number] Authorized Perform Procedure 11/09/2023 11/08/2024 1 1 [...] 1122 (Given - Provid er: Derek Arceo, BEATER WORKER HELPER-HEEL REDUCER) lidocaine PF (Xylocaine) 10 mg/mL (1 %) [...] section and content) DATE CREATED AUTHOR 11/11/2023 [facility] DATE CREATED AUTHOR AUTHOR'S ORGANIZ ATION 11/22/2023 [facility] ([place]) DATE CREATED AUTHOR AUTHOR'S ORGANIZ ATION 01/12/2024 [facility] DATE CREATED AUTHOR AUTHOR'S ORGANIZ ATION 03/04/2024 [facility] DATE CREATED AUTHOR AUTHOR'S ORGANIZ ATION 03/09/2024 [facility] DATE CREATED AUTHOR AUTHOR'S ORGANIZ ATION 02/18/2025 [facility] DATE CREATED AUTHOR AUTHOR'S ORGANIZ ATION 03/15/2025 [facility] Goals (unrecognized section and content) Goals may [...] BE BASED ON THE PRIMARY CLINICAL RECORDS. [facility] [place] [facility]. provides no warranty or guarantee of the accuracy or completeness of information in this document.
--- NOTE | 2025-03-15 23:34 | EDS_ITS ---
HPI History of Present Illness Chief Complaint: Cough Informant: patient and spouse/S.O. Narrative Narrative: Patient is a 80-year-old female with history of tobacco use, hypertension hyperlipidemia and insulin-dependent diabetes mellitus presenting with recurrent hemoptysis. Patient was seen and evaluated in the ER for about 36 hours ago for 2 to 3 days of chills and cough that is productive of blood. She is not on any blood thinners denies any history of any bleeding disorders. She was worked up and x-ray and a CTA of the chest which was most consistent with bronchitis. Was started on doxycycline and discharged home. States that she was actually doing much better throughout the day today however she was pretty active in the evening and then started having hemoptysis again. She states she coughed up probably close to half a cup of blood. No other complaints at this time. [facility] Medical History Wears glasses Easy bruising Dietary restriction Leg cramps History of rheumatic fever Hypertension Vision loss of right eye Vision loss of left eye Anemia Osteoporosis Smoker Tobacco use disorder, continuous Encounter for screening for malignant neoplasm of lung in current smoker with 30 pack year history or greater Bowel obstruction Vitamin D deficiency COPD (chronic obstructive pulmonary disease) Hyperlipidemia Diabetes Home Medications ?Medication ?Instructions ?Recorded ?Last Taken ?Type simvastatin 40 mg tablet 40 mg PO QHS cholesterol Unknown History cholecalciferol (vitamin D3) 1,250 1,250 mcg PO .MONTH LY supplement 08/05/23 Unknown History mcg (50,000 unit) capsule losartan 25 mg tablet 25 mg PO DAILY bp 08/05/23 U nknown History metformin 500 mg tablet 500 mg PO BID 03/14/25 Unkno wn History Allergy/AdvReac Type Severity Reaction Status Date / Time No Known Allergies Allergy Verified 03/15/25 19:46 Family History Father CAD (coronary artery disease) Myocardial infarction Osteoarthritis Brother Multiple myeloma older younger brother Brain aneurysm younger brother Surgical History History of cystoscopy History of cholecystectomy History of intestinal surgery History of hysterectomy History of removal of ovarian cyst Social History household members: spouse Smoking Status: Current every day smoker tobacco type: cigarettes Tobacco: How many years used: 25 Electronic Cigarette Use: not used second hand exposure: Yes quit status: considering quitting substance use type: does not use ROS ROS ED Constitutional Constitutional ED: Reports chills; Denies fever(s) Cardiovascular Cardiovascular: Denies chest pain Respiratory/Chest Respiratory/Chest: Reports cough, sputum and other Details: Hemoptysis-small amounts of clots ; Denies dyspnea Gastrointestinal Gastrointestinal: Denies abdominal pain, nausea or vomiting Musculoskeletal Musculoskeletal: Denies arthralgias or myalgias Integumentary Denies rash Neurologic Neurologic: Denies weakness Hematologic/Lymphatic Hematologic/Lymphatic: Denies easy bleeding or easy bruising EXAM Physical Exam Const Vital Signs: 03/15/25 19:45 03/15/25 19:48 03/15/25 19:48 Temperature 98.3 F Temperature Source Oral Pulse Rate Respiratory Rate 20 H Respiratory Effort Respiratory Depth Respiratory Pattern Blood Pressure 164/94 H Blood Pressure Mean 117 Pulse Ox 90 89 95 Oxygen Delivery Method Room Air Room Air Nasal Cannula Oxygen Flow Rate (L/min) 2 03/15/25 20:54 03/15/25 20:54 03/15/25 21:00 Temperature 98.2 F 98.2 F Temperature Source Oral Oral Pulse Rate 89 103 H Respiratory Rate 25 H 28 H Respiratory Effort Short of Breath Respiratory Depth Shallow Respiratory Pattern Tachypnea Blood Pressure 146/76 H 150/73 H Blood Pressure Mean 99 98 Pulse Ox 94 93 Oxygen Delivery Method Room Air Room Air Oxygen Flow Rate (L/min) 03/15/25 22:00 Temperature 98.5 F Temperature Source Oral Pulse Rate 91 Respiratory Rate 25 H Respiratory Effort Respiratory Depth Respiratory Pattern Blood Pressure 142/79 H Blood Pressure Mean 100 Pulse Ox 97 Oxygen Delivery Method Room Air Oxygen Flow Rate (L/min) Positive well nourished and well developed General Appearance ED: well developed and NAD; Negative for pallor HEENT Reports moist mucous membranes atraumatic Eyes PERRL Neck supple and no JVD Resp normal respiratory effort Resp Narrative: Patient has intermittent hemoptysis of bright red blood in the room. Mildly coarse breath sounds throughout radial. Auscultation: Negative for rhonchi or wheezes Cardio regular rate, regular rhythm and no murmurs GI non-tender and non-distended Extremity normal to inspection General Extremety ED: Negative for edema General Extremity: Negative for edema Neuro oriented x3 Sensorium / Orientation: alert Motor Exam: Negative for general weakness Psych mental status grossly normal Skin no wounds General Skin Exam: Negative for jaundice or pallor MDM MDM MDM Narrative Medical decision making narrative: Patient evaluated for recurrent hemoptysis. Differential includes not limited to pulmonary mass, pneumonia, symptomatic anemia and bronchitis/viral illness. As patient had a CTA of her chest for the symptoms on 03/14/2025 I do not think this is be repeated. It was negative for any acute pulmonary emboli but did show some findings most consistent bronchitis. Patient does have a worsening leukocytosis of 13.8. Her hemoglobin is normal and low suspicion for acute blood loss anemia. CMP is largely normal. Chest x-ray viewed by myself as well as radiology shows right middle lower lung zone airspace opacities. I suspect this is most consistent with pneumonia. This is new compared to her CT 2 days ago. Patient started on IV antibiotics (Rocephin and azithromycin). She is mildly hypoxic and on 2 L in the emergency room however we did not ambulate her and her oxygen did not go below 90% at rest. Patient will be admitted for pneumonia and hemoptysis and further workup. Patient agreeable this plan of care. Patient meets hemodynamically stable at this time. Lab Data Attestation: I reviewed the patient's lab results. Labs: Laboratory Results - last 24 hr 03/15/25 20:50 WBC 13.8 H RBC 4.53 Hgb 14.0 Hct 41.5 MCV 91.6 MCH 30.9 MCHC 33.7 RDW Std Deviation 42.4 RDW Coeff of Kuldip 12.7 Plt Count 294 MPV 9.6 Immature Gran % (Auto) 0.400 Neut % (Auto) 77.8 H Lymph % (Auto) 16.9 L Bailey % (Auto) 4.4 Eos % (Auto) 0.1 Baso % (Auto) 0.4 Absolute Neuts (auto) 10.7 H Absolute Lymphs (auto) 2.32 Nucleated RBC % 0 PT 13.9 INR 1.0 APTT 31.5 Sodium 138 Potassium 4.1 Chloride 104 Carbon Dioxide 21.5 Anion Gap 13 BUN 20 H Creatinine 0.73 Estim Creat Clear Calc 41.50 L Est GFR (MDRD) Non-Af 84 BUN/Creatinine Ratio 27.0 H Glucose 142 H Calcium 9.6 Radiography Diagnostic Testing: Clinical Impression(s) from Imaging Studies Chest X-Ray 03/15/25 21:05 IMPRESSION: Right mid and lower lung zone airspace opacities. Reading Location: [facility] Management Discussion w/another healthcare provider: Hospitalist Discharge Plan Dx/Rx/DC Orders Clinical Impression: Cough with hemoptysis, Multifocal pneumonia, History of tobacco use Disposition Disposition: Acute Care Hospital [facility] Discharge Date/Time: 03/15/25 23:58
[2025-03-15] MEDS: Azithromycin 500 MG in 0.9% Normal Saline (250mL Bag) 250 ML 250 MG IV (23:49)
[2025-03-16] VITALS (7 sets, daily range): BP systolic 109–138; BP diastolic 62–81; PULSE 78–95; RESP 14–22; TEMP 36.4–36.7; O2SAT 92–96; BMI 18.6
[2025-03-16] MEDS: Nicotine (PBKC) 21 MG Patch TD ×2 (00:53→07:57)
[2025-03-16] MEDS: 0.9% Saline Lock 10 ML Syringe IV (02:18)
[2025-03-16] MEDS: guaiFENesin 10 ML UDC (200MG/10ML) PO (02:20)
[2025-03-16 05:31] LABS: Hematocrit 37.1 % (37-47); Hemoglobin 12.7 g/dL (12.0-15.0); Immature Granulocytes Count 0.040 X10^3/uL (0.0-0.0); Mean Corp Hgb Conc 34.2 g/dL (32-36); Mean Corpuscular Volume 90.9 fL (81-99); Mean Platelet Vol. 9.9 fl (6.2-12.0); NRBC Flagged by Analyzer 0 % (0-5); Platelet Count 273 K/mm3 (150-450); RBC Distribution Width CV 12.7 % (11.6-14.6); RBC Distribution Width SD 42.6 fl (35.1-43.9); Red Blood Count 4.08 M/mm3 (4.2-5.4); White Blood Count 12.9 K/mm3 (4.4-11.0)
[2025-03-16 06:01] LABS: AST(SGOT) 19 U/L (<=31); Alanine Aminotransfer ALT/SGPT 11 U/L (<=34); Albumin, Serum 3.8 g/dL (3.4-4.8); Alkaline Phosphatase 44 U/L (35-104); Anion Gap 13 (5-15); BUN 19 mg/dL (4-19); BUN/Creat Ratio 25.5 RATIO (10-20); Calcium,Total 9.0 mg/dL (7.6-11.0); Carbon Dioxide 21.3 mmol/L (21.0-32.0); Chloride 105 mmol/L (98-108); Estimated Creatinine Clearance 41.04 ml/min (50-250); Globulin 2.6 g/dL (2.2-4.2); Glucose 155 mg/dL (70-99); Potassium 4.2 mmol/L (3.3-5.1)
--- NOTE | 2025-03-16 06:50 | CPS ---
Pt declined scheduled aerosol, she is not wheezing or SOB. She does not use any meds for COPD and knows to call if she has respiratory distress and will continue I.S. & PEP hourly until HS and begin again in a.m. This RT will contact about scheduled aerosols.
--- NOTE | 2025-03-16 10:41 | PCM.PROGNOTE ---
Subjective Subjective Patient seen and examined. She was admitted with a complaint of hemoptysis and shortness of breath and is being managed for pneumonia. She says she feels much better today. She is still coughing but does not have any hemoptysis anymore. She denies any fever or chills, chest pain, nausea or vomiting. Review of systems otherwise negative. She has remained hemodynamically stable. Objective Data Objective Data Vital Signs: Vital Signs Temp Pulse Resp BP Pulse Ox O2 Del Method O2 Flow Rate 97.6 F L 90 14 137/65 H 92 Room Air 2 03/16/25 07:55 03/16/25 07:55 03/16/25 07:55 03/16/25 07:55 03/16/25 07:55 03/16/25 08:00 03/15/25 19:48 Oxygen Flow Rate (L/min) 2 Oxygen Delivery Method Room Air Weight: 98 lb 14.39 oz Body Mass Index (BMI) 18.6 Intake & Output: Intake and Output for Last 24 Hours 03/14/25 03/15/25 03/16/25 23:59 23:59 23:59 Intake Total 50 / 50 450 / 450 Balance 50 / 50 450 / 450 Lab / Micro Data 03/16/25 04:11 03/16/25 04:11 Labs: Laboratory Results - last 24 hr 03/15/25 20:50: WBC 13.8 H, RBC 4.53, Hgb 14.0, Hct 41.5, MCV 91.6, MCH 30.9, MCHC 33.7, RDW Std Deviation 42.4, RDW Coeff of Kuldip 12.7, Plt Count 294, MPV 9.6, Immature Gran % (Auto) 0.400, Neut % (Auto) 77.8 H, Lymph % (Auto) 16.9 L, [place] % (Auto) 4.4, Eos % (Auto) 0.1, Baso % (Auto) 0.4, Absolute Neuts (auto) 10.7 H, Absolute Lymphs (auto) 2.32, Nucleated RBC % 0, PT 13.9, INR 1.0, APTT 31.5, Sodium 138, Potassium 4.1, Chloride 104, Carbon Dioxide 21.5, Anion Gap 13, BUN 20 H, Creatinine 0.73, Estim Creat Clear Calc 41.50 L, Est GFR (MDRD) Non-Af 84, BUN/Creatinine Ratio 27.0 H, Glucose 142 H, Calcium 9.6 03/16/25 04:11: WBC 12.9 H, RBC 4.08 L, Hgb 12.7, Hct 37.1, MCV 90.9, MCH 31.1, MCHC 34.2, RDW Std Deviation 42.6, RDW Coeff of Kuldip 12.7, Plt Count 273, MPV 9.9, Immature Gran % (Auto) 0.300, Neut % (Auto) 66.4, Lymph % (Auto) 27.4, [place] % (Auto) 5.4, Eos % (Auto) 0.2, Baso % (Auto) 0.3, Absolute Neuts (auto) 8.6 H, Absolute Lymphs (auto) 3.54, Nucleated RBC % 0, Sodium 139, Potassium 4.2, Chloride 105, Carbon Dioxide 21.3, Anion Gap 13, BUN 19, Creatinine 0.74, Estim Creat Clear Calc 41.04 L, Est GFR (MDRD) Non-Af 82, BUN/Creatinine Ratio 25.5 H, Glucose 155 H, Calcium 9.0, Total Bilirubin 0.43, AST 19, ALT 11, Alkaline Phosphatase 44, Total Protein 6.4, Albumin 3.8, Globulin 2.6, Albumin/Globulin Ratio 1.5 03/16/25 06:57: POC Glucose 137 H Micro: Microbiology 03/16/25 01:40 Mucosa - Nasopharyngeal Respiratory Panel (PCR) - Final 03/16/25 00:35 Urine, Clean Catch Legionella Antigen - Final 03/16/25 00:35 Urine, Clean Catch Streptococcus pneumoniae Antigen (M - Final Radiography Diagnostic Testing: Radiology Impression Chest X-Ray 03/15/25 21:05 IMPRESSION: Right mid and lower lung zone airspace opacities. Reading Location: [facility] Physical Exam Const alert, oriented x3 and no apparent distress General Appearance: cooperative HEENT normocephalic, head/scalp atraumatic, moist oral mucous membranes and oropharynx normal Eyes EOMs intact bilaterally Neck supple and no JVD Lymph Lymphatic: no lymphedema noted Resp Resp Narrative: mildly diminished breath sounds bibasally, no wheezes or crackles. On room air. Cardio regular rate, regular rhythm, S1 normal heart sound, S2 normal heart sound and no murmurs GI normal to inspection, nondistended, normoactive bowel sounds, soft to palpation and non-tender Extremity normal capillary refill, no clubbing, cyanosis or edema and no calf tenderness General Extremity: no tenderness to palpation of joints or extremities Skin General Skin Exam: no breakdown Neuro CN's II-XII intact bilaterally, no focal motor deficits and no sensory deficits noted Motor Exam: strength 5/5 throughout Psych thought process normal, cooperative and affect normal Appearance: appropriate Assessment & Plan Assessment/Plan (1) Multifocal pneumonia: (2) Cough with hemoptysis: PLAN: Plan #Multifocal pneumonia currently on room air. Hemoptysis hasnt recurred. On IV ceftriaxone and azithromycin. Sputum cultures pending. Urine for strep and legionella negative. wbc is 12.9, down slightly from 13.8 yesterday. #Hypertension: on losartan. IV hydralzein prn #TYpe 2 diabetes mellitus: on lantus 12 units qhs. Insulin sliding scale. Accuchecks ACHS # Hyperlipidemia: On statin #Nicotine dependence, counseled to quit. Nicotine patch 21 mg Charges/Coding Visit Charges Inpatient E&M: 96409 Subs Hosp L2
--- NOTE | 2025-03-16 15:55 | CASEMGMT ---
MALCOLM GARCIA Face to Face with patient for initial transition planning/care coordination assessment. RN CM introduced self and role at [facility]. Patient lying in bed, alert and oriented. Patient willing to participate in assessment and is able to answer all questions appropriately. Care providers, pharmacy, and demographics verified. Strata: 2 PCP: Saloni [facility] [employer] Specialists: none Preferred [facility]acy: [facility] Insurance: MCR, MMO Prescription Benefit: yes Living Will/HPOA: none LNOK: Living Arrangements: Patient lives with in a mobile home with 3 steps and railing to enter the home. Patient states she is independent at home. Transportation: self, DME/HHC: Patient has shower chair, grab bars, raised toilet, cane, walker and grab bars at home. No previous HHC or SNF. Will monitor for home oxygen, prefers [employer], green sheet placed on chart. Patient wishes to discharge home, denies need for home health at this time. Patient states he has no further needs or concerns at this time. CM to follow for discharge planning needs that may arise. Disposition Plan: Patient to discharge home with family support and follow-up plans in place. Will monitor for home oxygen. Shanthi SCHULTZ, RN, CM
[2025-03-16] MEDS: Azithromycin 500 MG in 0.9% Normal Saline (250mL Bag) 250 ML 250 MG IV (21:54)
[2025-03-17] VITALS (7 sets, daily range): BP systolic 127–171; BP diastolic 60–72; PULSE 64–100; RESP 15–16; TEMP 36.3–36.9; O2SAT 91–94; BMI 18.8
[2025-03-17 05:52] LABS: Hematocrit 35.8 % (37-47); Hemoglobin 12.3 g/dL (12.0-15.0); Immature Granulocytes Count 0.020 X10^3/uL (0.0-0.0); Mean Corp Hgb Conc 34.4 g/dL (32-36); Mean Corpuscular Volume 90.4 fL (81-99); Mean Platelet Vol. 9.7 fl (6.2-12.0); NRBC Flagged by Analyzer 0 % (0-5); Platelet Count 259 K/mm3 (150-450); RBC Distribution Width CV 12.7 % (11.6-14.6); RBC Distribution Width SD 41.8 fl (35.1-43.9); Red Blood Count 3.96 M/mm3 (4.2-5.4); White Blood Count 10.7 K/mm3 (4.4-11.0)
[2025-03-17 06:17] LABS: Anion Gap 11 (5-15); BUN 23 mg/dL (4-19); BUN/Creat Ratio 30.5 RATIO (10-20); Calcium,Total 8.8 mg/dL (7.6-11.0); Carbon Dioxide 21.5 mmol/L (21.0-32.0); Chloride 108 mmol/L (98-108); Estimated Creatinine Clearance 41.26 ml/min (50-250); Glucose 158 mg/dL (70-99); Potassium 4.1 mmol/L (3.3-5.1)
[2025-03-17] MEDS: Nicotine (PBKC) 21 MG Patch TD (09:19)
--- NOTE | 2025-03-17 10:55 | PN_ITS ---
Subjective Subjective Patient seen and examined. SHe complains of hemoptysis again today. She is on room air. Review of systems is otherwise negative. Objective Data Objective Data Vital Signs: Vital Signs Temp Pulse Resp BP Pulse Ox O2 Del Method O2 Flow Rate 98.1 F 96 15 127/72 H 92 Room Air 2 03/17/25 09:17 03/17/25 09:17 03/17/25 09:17 03/17/25 09:17 03/17/25 09:17 03/17/25 09:29 03/15/25 19:48 Oxygen Flow Rate (L/min) 2 Oxygen Delivery Method Room Air Weight: 99 lb 6.856 oz Body Mass Index (BMI) 18.8 Intake & Output: Intake and Output for Last 24 Hours 03/15/25 03/16/25 03/17/25 23:59 23:59 23:59 Intake Total 50 / 50 750 / 950 400 / 400 Balance 50 / 50 750 / 950 400 / 400 Lab / Micro Data 03/17/25 05:20 03/17/25 05:20 Labs: Laboratory Results - last 24 hr 03/16/25 11:23: POC Glucose 174 H 03/16/25 16:40: POC Glucose 125 H 03/16/25 21:52: POC Glucose 170 H 03/17/25 05:20: WBC 10.7, RBC 3.96 L, Hgb 12.3, Hct 35.8 L, MCV 90.4, MCH 31.1, MCHC 34.4, RDW Std Deviation 41.8, RDW Coeff of Kuldip 12.7, Plt Count 259, MPV 9.7, Immature Gran % (Auto) 0.200, Neut % (Auto) 59.7, Lymph % (Auto) 33.0, [place] % (Auto) 6.5, Eos % (Auto) 0.1, Baso % (Auto) 0.5, Absolute Neuts (auto) 6.4, Absolute Lymphs (auto) 3.51, Nucleated RBC % 0, Sodium 140, Potassium 4.1, Chloride 108, Carbon Dioxide 21.5, Anion Gap 11, BUN 23 H, Creatinine 0.76, E stim Creat Clear Calc 41.26 L, Est GFR (MDRD) Non-Af 81, BUN/Creatinine Ratio 30.5 H, Glucose 158 H, Calcium 8.8 03/17/25 06:42: POC Glucose 157 H Micro: Microbiology 03/16/25 00:40 Sputum, Expectorated/Coughed Gram Stain - Final 03/16/25 01:40 Mucosa - Nasopharyngeal Respiratory Panel (PCR) - Final 03/16/25 00:35 Urine, Clean Catch Legionella Antigen - Final 03/16/25 00:35 Urine, Clean Catch Streptococcus pneumoniae Antigen (M - Final Physical Exam Const alert, oriented x3 and no apparent distress General Appearance: cooperative HEENT normocephalic, head/scalp atraumatic, moist oral mucous membranes and oropharynx normal Eyes EOMs intact bilaterally Neck supple and no JVD Lymph Lymphatic: no lymphedema noted Resp Resp Narrative: mildly diminished breath sounds bibasally, no wheezes or crackles. On room air. Cardio regular rate, regular rhythm, S1 normal heart sound, S2 normal heart sound and no murmurs GI normal to inspection, nondistended, normoactive bowel sounds, soft to palpation and non-tender Extremity normal capillary refill, no clubbing, cyanosis or edema and no calf tenderness General Extremity: no tenderness to palpation of joints or extremities Skin General Skin Exam: no breakdown Neuro CN's II-XII intact bilaterally, no focal motor deficits and no sensory deficits noted Motor Exam: strength 5/5 throughout Psych thought process normal, cooperative and affect normal Appearance: appropriate Assessment & Plan Assessment/Plan (1) Multifocal pneumonia: (2) Cough with hemoptysis: PLAN: Plan #Multifocal pneumonia * currently on room air. She did have a recurrence of hemoptysis again overnight and htis morning. * On IV ceftriaxone and azithromycin. Sputum cultures pending. Urine for strep and legionella negative. * wbc is down to 10.7 today. * #Hypertension: on losartan. IV hydralzein prn #TYpe 2 diabetes mellitus: on lantus 12 units qhs. Insulin sliding scale. Accuchecks ACHS # Hyperlipidemia: On statin #Nicotine dependence, counseled to quit. Nicotine patch 21 mg daily prn DVT prophylaxis: lovenox Disposition: hold off on dc today due to recurrence of hemoptysis. If it persists, will benefit from pulm consult tomorrow. Charges/Coding Visit Charges Inpatient E&M: 01926 Subs Hosp L2
[2025-03-17] MEDS: Azithromycin 500 MG in 0.9% Normal Saline (250mL Bag) 250 ML 250 MG IV (21:44)
[2025-03-18 02:30] VITALS: BP 147/85; PULSE 98; RESP 16; TEMP 36.7; O2SAT 96
[2025-03-18 03:59] VITALS: BMI 20.4
[2025-03-18 06:16] LABS: Hematocrit 33.3 % (37-47); Hemoglobin 11.2 g/dL (12.0-15.0); Immature Granulocytes Count 0.030 X10^3/uL (0.0-0.0); Mean Corp Hgb Conc 33.6 g/dL (32-36); Mean Corpuscular Volume 91.0 fL (81-99); Mean Platelet Vol. 9.4 fl (6.2-12.0); NRBC Flagged by Analyzer 0 % (0-5); Platelet Count 231 K/mm3 (150-450); RBC Distribution Width CV 12.7 % (11.6-14.6); RBC Distribution Width SD 42.2 fl (35.1-43.9); Red Blood Count 3.66 M/mm3 (4.2-5.4); White Blood Count 9.4 K/mm3 (4.4-11.0)
[2025-03-18 06:48] LABS: Anion Gap 11 (5-15); BUN 21 mg/dL (4-19); BUN/Creat Ratio 28.0 RATIO (10-20); Calcium,Total 8.4 mg/dL (7.6-11.0); Carbon Dioxide 20.8 mmol/L (21.0-32.0); Chloride 108 mmol/L (98-108); Estimated Creatinine Clearance 43.73 ml/min (50-250); Glucose 147 mg/dL (70-99); Potassium 4.0 mmol/L (3.3-5.1)
--- NOTE | 2025-03-18 08:37 | PN.HOSP_ITS ---
Reason for Visit Chief Complaint: Dyspnea, cough, hemoptysis. Subjective Subjective Feeling well. No further hemoptysis. Would like to have nicotine patches for home. Objective Data Objective Data Vital Signs: Vital Signs Temp Pulse Resp BP Pulse Ox O2 Del Method O2 Flow Rate 36.7 C 98 16 147/85 H 96 Room Air 2 03/18/25 02:30 03/18/25 02:30 03/18/25 02:30 03/18/25 02:30 03/18/25 02:30 03/18/25 02:03/15/25 19:48 Oxygen Flow Rate (L/min) 2 Oxygen Delivery Method Room Air Weight: 49 kg Body Mass Index (BMI) 20.4 Intake & Output: Intake and Output for Last 24 Hours 03/16/25 03/17/25 03/18/25 23:59 23:59 23:59 Intake Total 750 / 950 700 / 700 Balance 750 / 950 700 / 700 Lab / Micro Data 03/18/25 05:55 03/18/25 05:55 Labs: Laboratory Results - last 24 hr 03/17/25 11:11: POC Glucose 266 H 03/17/25 16:26: POC Glucose 120 H 03/17/25 21:52: POC Glucose 295 H 03/18/25 05:55: WBC 9.4, RBC 3.66 L, Hgb 11.2 L, Hct 33.3 L, MCV 91.0, MCH 30.6, MCHC 33.6, RDW Std Deviation 42.2, RDW Coeff of Kuldip 12.7, Plt Count 231, MPV 9.4, Immature Gran % (Auto) 0.300, Neut % (Auto) 62.3, Lymph % (Auto) 29.6, [place] % (Auto) 7.2, Eos % (Auto) 0.1, Baso % (Auto) 0.5, Absolute Neuts (auto) 5.9, Absolute Lymphs (auto) 2.79, Nucleated RBC % 0, Sodium 141, Potassium 4.0, Chloride 108, Carbon Dioxide 20.8 L, Anion Gap 11, BUN 21 H, Creatinine 0.75, E stim Creat Clear Calc 43.73 L, Est GFR (MDRD) Non-Af 81, BUN/Creatinine Ratio 28.0 H, Glucose 147 H, Calcium 8.4 03/18/25 06:38: POC Glucose 138 H Micro: Microbiology 03/16/25 00:40 Sputum, Expectorated/Coughed Gram Stain - Final 03/16/25 01:40 Mucosa - Nasopharyngeal Respiratory Panel (PCR) - Final 03/16/25 00:35 Urine, Clean Catch Legionella Antigen - Final 03/16/25 00:35 Urine, Clean Catch Streptococcus pneumoniae Antigen (M - Final Physical Exam Const alert and no apparent distress HEENT head/scalp atraumatic and moist oral mucous membranes Resp normal respiratory effort and no retractions Resp Narrative: Right lower lobe crackles. Otherwise clear. Cardio regular rate, regular rhythm, S1 normal heart sound and S2 normal heart sound GI normal to inspection, nondistended, normoactive bowel sounds, soft to palpation and non-tender Assessment & Plan Assessment/Plan (1) Multifocal pneumonia: (2) Cough with hemoptysis: PLAN: Plan Suspected pneumococcal pneumonia * CTA on , did not show pneumonia, but bilateral infiltrates noted on CXR from the . * On IV ceftriaxone and azithromycin. Sputum cultures pending. Urine for strep and legionella negative. * had hemoptysis on 03/17, but since resolved. * Has been on antibiotics with ceftriaxone and azithromycin since the . Will discharge her with 5-day course of Augmentin. Chronic conditions: * Hypertension: on losartan. IV hydralazine prn * DM2: on lantus 12 units qhs. Insulin sliding scale. Accuchecks ACHS * Hyperlipidemia: On statin * Nicotine dependence, counseled to quit. Nicotine patch 21 mg daily prn. Patient wish to have nicotine patches upon discharge. She would like it also for her but I told her that she would need to have that arranged through his PCP but it is likely [id number] as well. I told her that the first step in quitting smoking and wind quits which she and her and daughter all want. And states that there will be any quitting at the same time. DVT prophylaxis: lovenox Disposition: DC home
[2025-03-18 08:40] VITALS: O2SAT 94; O2SAT 95
--- NOTE | 2025-03-18 10:25 | DS.PCM_ITS ---
Providers Date of Admission: 03/16/25 Primary Care Physician: Mauro Guallpa, [employer] Reason For Visit: PNA, HEMOPTYSIS ASSOCIATED WITH PNEUMONIA Diagnosis Discharge Diagnosis (1) Multifocal pneumonia: Status: Acute Code(s): J18.8 - Other pneumonia, unspecified organism (2) Cough with hemoptysis: Status: Acute Code(s): R04.2 - Hemoptysis Plan Suspected pneumococcal pneumonia * CTA on , did not show pneumonia, but bilateral infiltrates noted on CXR from the . * On IV ceftriaxone and azithromycin. Sputum cultures pending. Urine for strep and legionella negative. * had hemoptysis on 03/17, but since resolved. * Has been on antibiotics with ceftriaxone and azithromycin since the . Will discharge her with 5-day course of Augmentin. Chronic conditions: * Hypertension: on losartan. IV hydralazine prn * DM2: on lantus 12 units qhs. Insulin sliding scale. Accuchecks ACHS * Hyperlipidemia: On statin * Nicotine dependence, counseled to quit. Nicotine patch 21 mg daily prn. Patient wish to have nicotine patches upon discharge. She would like it also for her but I told her that she would need to have that arranged through his PCP but it is likely [id number] as well. I told her that the first step in quitting smoking and wind quits which she and her and daughter all want. And states that there will be any quitting at the same time. DVT prophylaxis: lovenox Disposition: DC home Medications at Discharge Home Medications simvastatin 40 mg tablet 40 mg PO QHS cholesterol 09/13/19 cholecalciferol (vitamin D3) 1,250 mcg (50,000 unit) capsule 1,250 mcg PO .MONTHLY supplement 08/05/23 losartan 25 mg tablet 25 mg PO DAILY bp 08/05/23 metformin 500 mg tablet 500 mg PO BID 03/14/25 Held on 03/18/25. Instructions: Resume on 03/19/25. amoxicillin 875 mg-potassium clavulanate 125 mg tablet 1 tab PO BID #10 tabs 03/18/25 nicotine 14 mg/24 hr daily transdermal patch (Nicoderm CQ) 1 patch transdermal DAILY #7 ea 03/18/25 nicotine 21 mg/24 hr daily transdermal patch (Nicoderm CQ) 1 patch transdermal DAILY #7 ea 03/18/25 nicotine 7 mg/24 hr daily transdermal patch (Nicoderm CQ) 1 patch transdermal Q24H #14 ea 03/18/25 Hospital Course Operations None Procedures None Summary of Care Provided Minutes Spent on Discharge: 40 Hospital Course: Patient presents with pneumonia. Initially CAT scan was negative but subsequent x-ray did show patchy infiltrates. Patient was started on ceftriaxone and azithromycin. Patient has done well during hospitalization. Patient be discharged with Augmentin. She is requesting a nicotine patch upon discharge and she feels it is helping. Weight / BMI Weight Weight: 49 kg Body Mass Index (BMI) 20.4 ABG / Lab / Microbiology Data 03/18/25 05:55 03/18/25 05:55 Laboratory: Laboratory Results - last 24 hr 03/17/25 11:11: POC Glucose 266 H 03/17/25 16:26: POC Glucose 120 H 03/17/25 21:52: POC Glucose 295 H 03/18/25 05:55: WBC 9.4, RBC 3.66 L, Hgb 11.2 L, Hct 33.3 L, MCV 91.0, MCH 30.6, MCHC 33.6, RDW Std Deviation 42.2, RDW Coeff of Kuldip 12.7, Plt Count 231, MPV 9.4, Immature Gran % (Auto) 0.300, Neut % (Auto) 62.3, Lymph % (Auto) 29.6, [place] % (Auto) 7.2, Eos % (Auto) 0.1, Baso % (Auto) 0.5, Absolute Neuts (auto) 5.9, Absolute Lymphs (auto) 2.79, Nucleated RBC % 0, Sodium 141, Potassium 4.0, Chloride 108, Carbon Dioxide 20.8 L, Anion Gap 11, BUN 21 H, Creatinine 0.75, E stim Creat Clear Calc 43.73 L, Est GFR (MDRD) Non-Af 81, BUN/Creatinine Ratio 28.0 H, Glucose 147 H, Calcium 8.4 03/18/25 06:38: POC Glucose 138 H Microbiology: Microbiology 03/16/25 00:40 Sputum, Expectorated/Coughed Gram Stain - Final 03/16/25 00:40 Sputum, Expectorated/Coughed Respiratory Culture - Preliminary 03/16/25 01:40 Mucosa - Nasopharyngeal Respiratory Panel (PCR) - Final 03/16/25 00:35 Urine, Clean Catch Legionella Antigen - Final 03/16/25 00:35 Urine, Clean Catch Streptococcus pneumoniae Antigen (M - Final D/C Instructions DC O2, CPAP, BIPAP Needs Home O2 Discharge instructions: No Meaningful Use Info Meaningful Use Meaningful Use Diagnoses (Choose all that apply): None applicable Discharge Plan Admission Admit Date/Time: 03/16/25 12:44 Primary Reason for Your Visit: Pneumonia Attending Provider: Al Menon Primary Care Provider: Mauro Guallpa NP Consulting Providers: Kaleigh Ramos; Alycia Llanes Discharge Orders/Prescriptions Prescriptions: New nicotine [Nicoderm CQ] 21 mg/24 hr patch 24 hour 1 patch transdermal DAILY Qty: 7 0RF nicotine [Nicoderm CQ] 14 mg/24 hr patch 24 hour 1 patch transdermal DAILY Qty: 7 0RF Rx Instructions: start 03/25/2025 nicotine [Nicoderm CQ] 7 mg/24 hr patch 24 hour 1 patch transdermal Q24H Qty: 14 0RF Rx Instructions: start 04/01/2025 amoxicillin-pot clavulanate 875-125 mg tablet 1 tab PO BID Qty: 10 0RF Continued simvastatin 40 MG tablet 40 mg PO QHS cholecalciferol (vitamin D3) 1,250 mcg (50,000 unit) capsule 1,250 mcg PO .MONTHLY Patient Comments: TAKE 1 CAPSULE BY MOUTH EVERY MONTH FOR 90 DAYS losartan 25 mg tablet 25 mg PO DAILY Patient Comments: TAKE 1 TABLET BY MOUTH EVERY DAY Held metformin 500 mg tablet 500 mg PO BID Hold Instructions: Resume on 03/19/25. Referrals / Follow Up: Mauro Guallpa NP, [employer] [Primary Care Provider, Family Practice] - Within 2 Weeks Disposition Disposition (needs filled in before D/C Order can be placed): Home, Self Care Charges/Coding Visit Charges Inpatient E&M: 87553 Disch Hosp >30min
[2025-03-18 10:28] VITALS: BP 135/74; PULSE 92; RESP 16; TEMP 36.2; O2SAT 96
[2025-03-18] MEDS: Nicotine (PBKC) 21 MG Patch TD (10:32)
--- NOTE | 2025-03-18 10:39 | CASEMGMT ---
Pt does not qualify for home oxygen.
--- NOTE | 2025-03-18 12:16 | PHA.DC.MC.R ---
Pharmacy [facility] Counseling Pharmacy Service has performed discharge medication reconciliation and counseling for this patient. 1. AUGMENTIN 875MG PO BID X 5 DAYS 2. NICOTINE PATCH TAPER The patient's discharge medication list was reviewed for discrepancies and discrepancies were resolved. The patient was counseled on the following discharge medications and changes in medications for homegoing were reviewed. The Reason for Use, instructions for use, and potential side effects were reviewed for all new medications. The patient's questions regarding all of their medications were answered. The patient was able to verbally demonstrate an understanding of their discharge medications. Medications at Discharge Home Medications simvastatin 40 mg tablet 40 mg PO QHS cholesterol 09/13/19 cholecalciferol (vitamin D3) 1,250 mcg (50,000 unit) capsule 1,250 mcg PO .MONTHLY supplement 08/05/23 losartan 25 mg tablet 25 mg PO DAILY bp 08/05/23 metformin 500 mg tablet 500 mg PO BID 03/14/25 Held on 03/18/25. Instructions: Resume on 03/19/25. amoxicillin 875 mg-potassium clavulanate 125 mg tablet 1 tab PO BID #10 tabs 03/18/25 nicotine 14 mg/24 hr daily transdermal patch (Nicoderm CQ) 1 patch transdermal DAILY #7 ea 03/18/25 nicotine 21 mg/24 hr daily transdermal patch (Nicoderm CQ) 1 patch transdermal DAILY #7 ea 03/18/25 nicotine 7 mg/24 hr daily transdermal patch (Nicoderm CQ) 1 patch transdermal Q24H #14 ea 03/18/25
== END 2025-03-18 12:29 | disposition home or self-care (01) | DRG 194 ==
LOC: ED 23:11 → MS3 23:18
PROVIDERS: Student in an Organized Health Care Education/Training Program; Admitting Provider Family Medicine; Emergency Provider Emergency Medicine; PCP Nurse Practitioner Family
DX: J13 Pneumonia due to Streptococcus pneumoniae (principal); R04.2 Hemoptysis; J44.0 Chronic obstructive pulmonary disease with (acute) lower respiratory infection; E11.9 Type 2 diabetes mellitus without complications; I10 Essential (primary) hypertension; E78.5 Hyperlipidemia, unspecified; F17.210 Nicotine dependence, cigarettes, uncomplicated; Z79.4 Long term (current) use of insulin; J40 Bronchitis, not specified as acute or chronic; Z79.899 Other long term (current) drug therapy; Z90.710 Acquired absence of both cervix and uterus; Z79.84 Long term (current) use of oral hypoglycemic drugs; Z90.49 Acquired absence of other specified parts of digestive tract; R05.9 Cough, unspecified
CPT/HCPCS: 36415; 71046; 71275; 80048; 80053; 82962; 83605; 85025; 85610; 85730; 87070; 87205; 87449; 87631; 87633; 93005; 94668; 96360; 96361; 99252; 99283; Q9967; A4216; G0463